=== PATIENT | male | born 1960 | race Caucasian/White ===

== ENCOUNTER 2016-07-23 15:54 | Emergency (ER) | payer MEDICARE, MEDICAID ==
[~2016-07-23] VITALS: Ht 195.6 cm; Wt 106.8 kg
[~2016-07-23 15:54] MED LIST: BLOOD THINNER PO; CIAL20TA PO; CIAL5TAB PO; DAPT500P IV; NOVONP2 SQ; NOVORP2 SQ; RIFA300C2 PO; TAMS5CAP PO; [UNRECOGNIZED DRUG - CODE] TOPICAL
[2016-07-23 15:56] VITALS: BP 137/66; PULSE 115; PULSE 122; RESP 20; TEMP 98.1; TEMP 99.6; O2SAT 97
[2016-07-23] MEDS ORDERED: CLIN1GEL TOPICAL (16:35)
[2016-07-23] MEDS ORDERED: CIPR750T2 PO (16:35)
[2016-07-23] MEDS ORDERED: GENT0.1C TOPICAL (16:47)
[2016-07-23] MEDS ORDERED: NOVONP2 SQ ×2 (16:48→16:53)
[2016-07-23] MEDS ORDERED: SODIUM CHLOR 0.9% 1000 ML INJ 1,000 ML IV ONE (17:00)
[2016-07-23] MEDS ORDERED: HYDROmorphone HCL PF 1 MG/ML VIAL IVS ONE (17:00)
[2016-07-23] MEDS ORDERED: NOVORP2 SQ (17:04)
[2016-07-23 17:35] LABS: AUTOMATED NEUTROPHIL # 14.2 TH/MM3 (1.8-7.7); BASOPHIL # 0.1 TH/MM3 (0-0.2); BASOPHIL % 0.3 % (0.0-2.0); EOSINOPHIL # 0.1 TH/MM3 (0-0.4); EOSINOPHIL % 0.8 % (0.0-4.0); HEMATOCRIT 28.7 % (39.0-51.0); HEMO FLAGS DIFF FINAL; LYMPH % 5.6 % (9.0-44.0); LYMPHOCYTE # 0.9 TH/MM3 (1.0-4.8); MEAN CELL VOLUME 80.9 FL (80.0-100.0); MEAN CORPUSCULAR HEMOGLOBIN 27.1 PG (27.0-34.0); MEAN CORPUSCULAR HGB CONC 33.5 % (32.0-36.0); MONO % 4.6 % (0.0-8.0); NEUT % 88.7 % (16.0-70.0); PLATELET COUNT 252 TH/MM3 (150-450); RED BLOOD COUNT 3.55 MIL/MM3 (4.50-5.90); RED CELL DISTRIBUTION WIDTH 14.9 % (11.6-17.2)
[2016-07-23 17:46] VITALS: RESP 18
[2016-07-23 18:03] LABS: ANION GAP 10 MEQ/L (5-15); AST (GOT) 13 U/L (15-37); BICARBONATE 22.2 MEQ/L (21.0-32.0); BLOOD UREA NITROGEN 33 MG/DL (7-18); CHLORIDE 100 MEQ/L (98-107); GLOMERULAR FILTRATION RATE 40 ML/MIN (>89); POTASSIUM 4.3 MEQ/L (3.5-5.1); SODIUM (NA) 132 MEQ/L (136-145)
[2016-07-23 18:06] LABS: ALKALINE PHOSPHATASE 116 U/L (45-117); ALT (GPT) 17 U/L (12-78); TOTAL BILIRUBIN ADULT 0.3 MG/DL (0.2-1.0)
[2016-07-23] MEDS ORDERED: ONDANSETRON HCL 4 MG/2 ML VIAL IV ONE (18:30)
[2016-07-23] MEDS ORDERED: IODIXANOL 320 MG/ML 10 ML VIAL (for RAD SPEC) IV ONE (18:43)
[2016-07-23] MEDS ORDERED: AMPICILLIN-SULBACTAM INJ 3 GM in SODIUM CHLORIDE 0.9% INJ 100 ML IV ONE (18:45)
[2016-07-23] MEDS ORDERED: HYDROmorphone HCL PF 1 MG/ML VIAL IV PUSH ONE (18:45)
--- NOTE | 2016-07-23 18:52 | RADRPT ---
EXAM DATE/TIME: 07/23/2016 18:27 [place] COMPARISON: No previous studies available for comparison. INDICATIONS : Left face red and swollen for one week. IV CONTRAST: 46 cc Visipaque (iodixanol) IV RADIATION DOSE: 36.31 CTDIvol (mGy) MEDICAL HISTORY : Cardiovascular disease. Hypertension. Diabetes mellitus type 2. SURGICAL HISTORY : Appendectomy. Herniorrhaphy ENCOUNTER: Initial ACUITY: 1 week PAIN SCALE: 5/10 LOCATION: Left facial TECHNIQUE: Volumetric scanning of the facial bones was performed. Using automated exposure control and adjustme nt of the mA and/or kV according to patient size, radiation dose was kept as low as reasonably achiev able to obtain optimal diagnostic quality images. FINDINGS: ORBITS: The orbital and infraorbital osseous structures are intact. The retroconal structures have a normal configuration. No radiopaque foreign bodies are seen. NASAL BONE: The nasal bone and maxillary spine are intact ZYGOMATIC ARCHES: Symmetric without evidence of fracture. SINUSES: The maxillary, ethmoid and frontal sinuses are intact. No air-fluid levels seen. NASAL CAVITY: The nasal septum is intact and midline. The lacrimal ducts are intact. SOFT TISSUES: No radiopaque foreign bodies seen. Extensive left-sided facial soft-tissue swelling is seen. No absce ss. This is seen laterally on the left along the left cheek and in the region of the left parotid gla nd INTRACRANIAL: No intracranial air seen. CRIBIFORM PLATE: Grossly intact. CONCLUSION: Cellulitic changes of the left face. No abscess. Fly Marcial MD on July 23, 2016 at 18:49 Board Certified Radiologist. This report was verified electronically.
[2016-07-23] MEDS ORDERED: PERC10TA27 PO (19:04)
[2016-07-23] MEDS ORDERED: BACT800T5 PO (19:04)
[2016-07-23] MEDS ORDERED: AUGM875T PO (19:04)
--- NOTE | 2016-07-23 19:04 | PD ---
HPI Chief Complaint: Allergic/Adverse Reaction Time Seen by Provider: 16:34 Travel History International Travel<30 days: No Contact w/Intl Traveler<30days: No Traveled to known affect area: No History of Present Illness HPI 56-year-old man with diabetes hypertension CAD Charcot foot and chronic osteomyelitis of his feet who presents with worsening pain swelling redness to his left face and jaw. Symptoms have been ongoing for the past 5 or 6 days. Initially had multiple small pustules on both sides of his face. These were easily drained. He saw his infectious disease doctor who gave him a clindamycin cream. He states after using this 3 or 4 days ago he had progressive worsening pain redness swelling on the side of his face. He has chills at night. 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 He completed Cubicin and rifampin 13 weeks via PICC line. History Past Medical History Narrative Medical Diabetes CAD Hypertension Charcot feet Chronic osteomyelitis Social History Alcohol Use: Yes (rarely) Tobacco Use: No Allergies-Medications (Allergen,Severity, Reaction): Coded Allergies: Codeine (Verified Allergy, Severe, Cardiac arrest, 07/23/16) Reported Meds & Prescriptions Reported Meds & Active Scripts Active Bactrim DS (Sulfamethoxazole-Trimethoprim) 800-160 Mg Tab 1 Tab PO BID Augmentin (Amoxicillin-Clavulanate) 875-125 mg Tab 875 Mg PO BID not for use in CrCl <30 ml/min. Percocet (Oxycodone-Acetaminophen) 10-325 mg Tab 1 Tab PO Q6H PRN Cialis (Tadalafil) 5 Mg Tab 5 Mg PO DAILY Do not exceed 1 dose/day. Flomax (Tamsulosin HCl) 0.4 Mg Cap 0.4 Mg PO HS Reported Novolin R Inj (Insulin Human Regular) 1,000 Unit/10 Ml Vial 0 SQ DIRECTED Sliding Scale As Directed. Novolin N Inj (Insulin Human NPH) 1,000 Unit/10 Ml Vial 25 Units SQ DAILY IN THE EVENING Novolin N Inj (Insulin Human NPH) 1,000 Unit/10 Ml Vial 35 Units SQ DAILY IN THE MORNING Gentamicin Topical 0.1% Cream 1 Applic TOPICAL BID Apply to affected groin and toe. Clindamycin Topical (Clindamycin Phosphate) 1% Gel 1 Applic TOPICAL 5 TIMES A DAY Ciprofloxacin (Ciprofloxacin HCl) 750 Mg Tab 750 Mg PO BID Review of Systems Except as stated in HPI: all other systems reviewed are Neg Physical Exam Narrative GENERAL: Well-appearing 56-year-old man, no acute distress. SKIN: Warm and dry. HEAD: Atraumatic. Normocephalic. EYES: Pupils equal and round. No scleral icterus. No injection or drainage. ENT: No nasal bleeding or discharge. Mucous membranes pink and moist. Significant erythema redness on the patient's left jawline. Is a lot of induration. I do not feel any obvious fluctuance. There are several areas of scabbing in the bottom aspect of the jaw reveals a little bit of thin purulent drainage. Intraoral exam is unremarkable. There is no teeth on the bottom. There is no purulent drainage from Stensen's duct. There is no evidence of obvious odontogenic source of the infection. NECK: Trachea midline. No JVD. CARDIOVASCULAR: Regular rate and rhythm. No murmur appreciated. RESPIRATORY: No accessory muscle use. Clear to auscultation. Breath sounds equal bilaterally. GASTROINTESTINAL: Abdomen soft, non-tender, nondistended. Hepatic and splenic margins not palpable. MUSCULOSKELETAL: No obvious deformities. No clubbing. No cyanosis. No edema. Data Data Last Documented VS Vital Signs Date Time Temp Pulse Resp B/P Pulse Ox O2 Delivery O2 Flow Rate FiO2 07/23/16 17:46 18 07/23/16 15:56 99.6 122 137/66 97 Orders Ed Poc Ultrasound (07/23/16 ) Complete Blood Count With Diff (07/23/16 16:56) Comprehensive Metabolic Panel (07/23/16 16:56) Westergren Sedimentation Rate (07/23/16 16:56) C-Reactive Protein (Crp) (07/23/16 16:56) Iv Access Insert/Monitor (07/23/16 16:56) Ct Facial Bones W Iv Contrast (07/23/16 ) Sodium Chlor 0.9% 1000 Ml Inj (Ns 1000 M (07/23/16 17:00) Hydromorphone Pf Inj (Dilaudid Pf Inj) (07/23/16 17:00) Blood Culture (07/23/16 17:06) Ondansetron Inj (Zofran Inj) (07/23/16 18:30) Iodixanol 320 Inj (Visipaque 320 Inj) (07/23/16 18:43) Ampicillin-Sulbactam Inj (Unasyn Inj) (07/23/16 18:45) Hydromorphone Pf Inj (Dilaudid Pf Inj) (07/23/16 18:45) Labs Laboratory Tests Test 07/23/16 17:08 White Blood Count 16.0 TH/MM3 Red Blood Count 3.55 MIL/MM3 Hemoglobin 9.6 GM/DL Hematocrit 28.7 % Mean Corpuscular Volume 80.9 FL Mean Corpuscular Hemoglobin 27.1 PG Mean Corpuscular Hemoglobin 33.5 % Concent Red Cell Distribution Width 14.9 % Platelet Count 252 TH/MM3 Mean Platelet Volume 7.5 FL Neutrophils (%) (Auto) 88.7 % Lymphocytes (%) (Auto) 5.6 % Monocytes (%) (Auto) 4.6 % Eosinophils (%) (Auto) 0.8 % Basophils (%) (Auto) 0.3 % Neutrophils # (Auto) 14.2 TH/MM3 Lymphocytes # (Auto) 0.9 TH/MM3 Monocytes # (Auto) 0.7 TH/MM3 Eosinophils # (Auto) 0.1 TH/MM3 Basophils # (Auto) 0.1 TH/MM3 CBC Comment DIFF FINAL Differential Comment Erythrocyte Sedimentation Rate 114 mm/hr Sodium Level 132 MEQ/L Potassium Level 4.3 MEQ/L Chloride Level 100 MEQ/L Carbon Dioxide Level 22.2 MEQ/L Anion Gap 10 MEQ/L Blood Urea Nitrogen 33 MG/DL Creatinine 1.78 MG/DL Estimat Glomerular Filtration 40 ML/MIN Rate Random Glucose 132 MG/DL Calcium Level 8.9 MG/DL Total Bilirubin 0.3 MG/DL Aspartate Amino Transf 13 U/L (AST/SGOT) Alanine Aminotransferase 17 U/L (ALT/SGPT) Alkaline Phosphatase 116 U/L C-Reactive Protein 17.00 MG/DL Total Protein 7.8 GM/DL Albumin 2.9 GM/DL [facility] Medical Decision Making Medical Screen Exam Complete: Yes Emergency Medical Condition: Yes Interpretation(s) LABS: CBC remarkable for leukocytosis Sedimentation rate 114 CMP with mildly elevated BUN and creatinine CRP 17 Differential Diagnosis Cellulitis, abscess, parotiditis, other Narrative Course Medical decision making 56-year-old man with cellulitis and possible abscess to the left face. Patient is insistent that he just needs is drained, culture sent, blood work sent. I performed a bedside ultrasound which did not show any areas of fluctuance to drain. CT scan was performed which shows cellulitis and induration but without drainable collection. IV show leukocytosis and elevated inflammatory markers. I recommended that the patient stay for admission IV antibiotics and further evaluation. Patient is absolutely unwilling to stay. He solely from the first moment I walked in the room. He does have an infectious disease doctor in a primary care physician with whom he can follow-up with. This does not appear to be an odontogenic infection. Cultures were obtained but there is no area to be drained to get a culture from the wound itself. We'll place patient on Augmentin, with Bactrim for MRSA coverage. Patient understands he can return at any time for repeat evaluation and admission. Diagnosis Primary Impression: Facial cellulitis Patient Instructions: General Instructions Additional Instructions: Take antibiotics as prescribed. Take pain medicine as needed. Follow-up with your primary doctor tomorrow. Return to the emergency department if you change your mind and are agreeable to stay, he started to develop fevers, worsening swelling, worsening pain, or any other new or worsening symptoms. Med/Other Pt SpecificInfo: Prescription(s) given Scripts Sulfamethoxazole-Trimethoprim (Bactrim DS)800-160 Mg Tab1 Tab PO BID #20 TAB Ref 0 Prov:Jacob Reeder MD 07/23/16 Amoxicillin-Clavulanate (Augmentin)875-125 mg Ddg253 Mg PO BID #20 TAB Ref 0 not for use in CrCl <30 ml/min. Prov:Jacob Reeder MD 07/23/16 Oxycodone-Acetaminophen (Percocet)10-325 mg Tab1 Tab PO Q6H PRN (PAIN) #15 TAB Ref 0 Prov:Jacob Reedre MD 07/23/16 Disposition: 07 AGAINST MEDICAL ADVICE Condition: Stable Jacob Reeder MD Jul 23, 2016 19:04
[2016-07-23] MEDS ORDERED: ONDANSETRON ODT 4 MG TAB PO ONE (20:00)
[2016-11-25] MEDS ORDERED: ANTI1CRE6 TOPICAL (11:06)
[2016-11-25] MEDS ORDERED: MERO1INJ8 IV (11:06)
[2016-11-25] MEDS ORDERED: NOVOINJ6 SQ ×2 (11:06)
[2016-11-25] MEDS ORDERED: HUMUINJ5 SQ (11:06)
== END 2016-07-23 20:19 | disposition left against medical advice (07) ==
LOC: NEPE 15:54
DX: L03.211 Cellulitis of face (principal); E11.9 Type 2 diabetes mellitus without complications; I25.10 Atherosclerotic heart disease of native coronary artery without angina pectoris; I10 Essential (primary) hypertension; A52.16 Charcot's arthropathy (tabetic); M86.679 Other chronic osteomyelitis, unspecified ankle and foot
CPT/HCPCS: 70487; 80053; 85025; 85652; 86140; 86403; 87040; 87186; 87205; 96361; 96365; 96375; 96376; 99284; J0295; J1170; J2405; J7030; Q9967

== ENCOUNTER 2016-07-25 12:08 | Inpatient (IN) | payer MEDICARE, MEDICAID, OTHER ==
[~2016-07-25] VITALS: Ht 195.6 cm; Wt 106.0 kg
[2016-07-25] MEDS: SODIUM CHLOR 0.9% 1000 ML INJ 1,000 ML IV SCH ×2 (03:43→15:16)
[~2016-07-25 12:08] MED LIST changes: +AUGM875T PO; +BACT800T5 PO; -BLOOD THINNER PO; -CIAL20TA PO; +CIPR750T2 PO; +CLIN1GEL TOPICAL; -DAPT500P IV; +GENT0.1C TOPICAL; +PERC10TA27 PO; -RIFA300C2 PO; -[UNRECOGNIZED DRUG - CODE] TOPICAL
[2016-07-25 12:12] VITALS: BP 138/86; PULSE 88; RESP 20; TEMP 98; O2SAT 98
[2016-07-25] MEDS ORDERED: Vancomycin Consult Pharmacy 1 EA OTHER SCH (14:30)
[2016-07-25] MEDS ORDERED: LORazepam 1 MG TAB PO PRN (14:30)
[2016-07-25] MEDS ORDERED: ACETAMINOPHEN 325 MG TAB PO PRN (14:30)
[2016-07-25] MEDS ORDERED: NALOXONE HCL 0.4 MG/ML AMP IV PRN ×2 (14:30)
[2016-07-25] MEDS ORDERED: VANCOMYCIN INJ 1,000 MG in SODIUM CHLOR 0.9% 250 ML INJ 250 ML IV SCH (14:30)
[2016-07-25] MEDS ORDERED: ACETAMINOPHEN/HYDROcodone 325 MG/5 MG TAB PO PRN (14:30)
--- NOTE | 2016-07-25 14:47 | PD ---
HPI Chief Complaint: Facial Pain or Swelling Time Seen by Provider: 14:06 Travel History International Travel<30 days: No Contact w/Intl Traveler<30days: No Traveled to known affect area: No History of Present Illness HPI This patient was sent here for admission from the primary care office. He's got a left facial infection that is failing outpatient treatment and worsening despite antibiotics of Augmentin and Bactrim. He was here 2 days ago and had extensive workup including labs and a CT of the face that did not show drainable abscess. Symptoms severity is moderate. He has subjective fever. No alleviating factors. Duration one week PFSH Past Medical History Cardiac Catheterization: Yes Cardiovascular Problems: Yes (MID LAT ART COLLAPSE 2014) Diabetes: Yes Patient Takes Glucophage: No Tetanus Vaccination: < 5 Years Past Surgical History Coronary Stent: Yes Social History Alcohol Use: Yes (rarely) Tobacco Use: No Substance Use: No Allergies-Medications (Allergen,Severity, Reaction): Coded Allergies: Codeine (Verified Allergy, Severe, Cardiac arrest, 07/25/16) Reported Meds & Prescriptions Reported Meds & Active Scripts Active Bactrim DS (Sulfamethoxazole-Trimethoprim) 800-160 Mg Tab 1 Tab PO BID Augmentin (Amoxicillin-Clavulanate) 875-125 mg Tab 875 Mg PO BID not for use in CrCl <30 ml/min. Percocet (Oxycodone-Acetaminophen) 10-325 mg Tab 1 Tab PO Q6H PRN Cialis (Tadalafil) 5 Mg Tab 5 Mg PO DAILY Do not exceed 1 dose/day. Flomax (Tamsulosin HCl) 0.4 Mg Cap 0.4 Mg PO HS Reported Novolin R Inj (Insulin Human Regular) 1,000 Unit/10 Ml Vial 0 SQ DIRECTED Sliding Scale As Directed. Novolin N Inj (Insulin Human NPH) 1,000 Unit/10 Ml Vial 25 Units SQ DAILY IN THE EVENING Novolin N Inj (Insulin Human NPH) 1,000 Unit/10 Ml Vial 35 Units SQ DAILY IN THE MORNING Gentamicin Topical 0.1% Cream 1 Applic TOPICAL BID Apply to affected groin and toe. Clindamycin Topical (Clindamycin Phosphate) 1% Gel 1 Applic TOPICAL 5 TIMES A DAY Ciprofloxacin (Ciprofloxacin HCl) 750 Mg Tab 750 Mg PO BID Review of Systems General / Constitutional: Positive: Fever Eyes: No: Visual changes HENT: No: Headaches Cardiovascular: No: Chest Pain or Discomfort Respiratory: No: Shortness of Breath Gastrointestinal: No: Abdominal Pain Genitourinary: No: Dysuria Musculoskeletal: Positive: Pain Skin: No Rash Neurologic: No: Weakness Psychiatric: No: Depression Endocrine: No: Polydipsia Hematologic/Lymphatic: No: Easy Bruising Physical Exam Narrative GENERAL: Well-nourished, well-developed patient with facial infection. SKIN: Warm and dry. HEAD: Atraumatic. Normocephalic. EYES: Pupils equal and round. No scleral icterus. No injection or drainage. ENT: No nasal bleeding or discharge. Mucous membranes pink and moist. NECK: Trachea midline. No JVD. CARDIOVASCULAR: Regular rate and rhythm. No murmur appreciated. RESPIRATORY: No accessory muscle use. Clear to auscultation. Breath sounds equal bilaterally. GASTROINTESTINAL: Abdomen soft, non-tender, nondistended. Hepatic and splenic margins not palpable. MUSCULOSKELETAL: No obvious deformities. No clubbing. No cyanosis. No edema. NEUROLOGICAL: Awake and alert. No obvious cranial nerve deficits. Motor grossly within normal limits. Normal speech. PSYCHIATRIC: Somewhat hostile mood and affect; insight and judgment normal. Data Data Last Documented VS Vital Signs Date Time Temp Pulse Resp B/P Pulse Ox O2 Delivery O2 Flow Rate FiO2 07/25/16 12:12 98.0 88 20 138/86 98 Room Air Orders Iv Access Insert/Monitor (07/25/16 14:39) Complete Blood Count With Diff (07/25/16 14:39) Basic Metabolic Panel (Bmp) (07/25/16 14:39) Prothrombin Time / Inr (Pt) (07/25/16 14:39) Act Partial Throm Time (Ptt) (07/25/16 14:39) Admit Order (Ed Use Only) (07/25/16 14:40) [facility] Medical Decision Making Medical Screen Exam Complete: Yes Emergency Medical Condition: Yes Medical Record Reviewed: Yes Differential Diagnosis Carbuncle, boil, failure of outpatient treatment Narrative Course I have reviewed the patient's electronic medical record. Reviewed his extensive workup from 2 days ago IV placed I've ordered Gen. lab studies I spoke with the admitting medical residents who are ordering vancomycin right now Patient is agreeable to stay Diagnosis Primary Impression: Carbuncle Additional Impression: Failure of outpatient treatment Admitting Information Admitting Physician Requests: Sarabjit Bay MD Jul 25, 2016 14:46
--- NOTE | 2016-07-25 14:49 | HHI.HP ---
HPI Service Family Medicine Primary Care Physician Cuate Bajwa MD Admission Diagnosis L facial carbuncle,failure of outpt RX Diagnoses: International Travel<30 Days: No Contact w/Intl Traveler<30days: No Known Affected Area: No History of Present Illness 56-year-old male with a past medical history significant for diabetes who is currently being treated for osteomyelitis with ciprofloxacin by infectious disease. He developed a large erythematous swelling of cellulitis along the left jawline currently 10 x 10 cm. He is developing severe nausea and vomiting. He recently went to the [facility] ED on 07/23/16. Blood cultures were done at that time he was found to be staph coagulase positive. He decided to leave the hospital on that day before being admitted. He came to the family medicine clinic on 07/25/16 to be evaluated due to the worsening swelling and erythema, the worsening since nausea vomiting, and the positive blood cultures he was told that it was important that he go to the hospital to be admitted. He was upset with several the staff at the clinic as well as at triage for the ED, however he agreed to stay and be admitted to get IV antibiotics. He is unwilling to have much of a conversation during my evaluation and more information was not able to be obtained. Further history per chart review: Patient was previously treated for his osteomyelitis with Cubicin and rifampin 13 weeks via PICC line. PICC line has subsequently been removed. He is also followed by podiatry who took a recent wound culture and stated that his foot was growing "a new bacteria." Attempts to get records have failed. He is being seen by infectious disease who started him on oral ciprofloxacin. The patient states that the previous antibiotics were giving him abscesses for which ID prescribed clindamycin ointment. 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 ( Hubert Courtney MD R2) Review of Systems ROS Limitations: Uncooperative, Poor Historian Other Endorses: Nausea, vomiting, feeling febrile, severe pain in his left total, erythema and swelling of the left atrial Denies: chills, nausea, vomiting, shortness of breath, chest pain, headache, abdominal pain, calf pain (Hubert Courtney MD R2) Past Family Social History Past Medical History - Poorly controlled insulin dependant DM II - Charcot feet - Chronic osteomyelitis - HTN Past Surgical History - Bilateral 5th ray amputations (Hubert Courtney MD R2) Allergies: Coded Allergies: Codeine (Verified Allergy, Severe, Cardiac arrest, 07/25/16) Family History - Dad: lung cancer - Mom- Unknown cancer Social History Unwilling to provide 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 SKIN: Erythematous and indurated swelling that is 10 x 10 cm along patient's left jawline. Did not palpate any areas of fluctuation. Painful to palpation. HEAD: Atraumatic. Normocephalic. No temporal or scalp tenderness. Area of cellulitis as above EYES: Pupils equal round and reactive. Extraocular motions intact. No scleral icterus. No injection or drainage. ENT: Nose without bleeding, purulent drainage or septal hematoma. Throat without erythema, tonsillar hypertrophy or exudate. Uvula midline. Mild mucosal swelling on left side of mouth Airway patent. NECK: Trachea midline. No JVD or lymphadenopathy. Supple, nontender, no meningeal signs. CARDIOVASCULAR: Regular rate and rhythm without murmurs, gallops, or rubs. RESPIRATORY: Clear to auscultation. Breath sounds equal bilaterally. No wheezes , rales, or rhonchi. GASTROINTESTINAL: Abdomen soft, non-tender, nondistended. No hepato-splenomegaly , or palpable masses. No guarding. MUSCULOSKELETAL: Extremities without clubbing, cyanosis, or edema. No joint tenderness, effusion, or edema noted. No calf tenderness. Negative Homans sign bilaterally. Right foot in boot NEUROLOGICAL: Awake and alert. Cranial nerves II through XII grossly intact. Normal speech. (Hubert Courtney MD R2) Imaging 07/23/16 CT facial bones with IV contrast: Slightly changes the left face. No abscess (Hubert Courtney MD R2) Assessment and Plan Assessment and Plan 56-year-old male with a past medical history significant for diabetes who is currently being treated for osteomyelitis with ciprofloxacin by infectious disease, now developed a large cellulitis to the left jaw. Being admitted for this cellulitis infection. Code Status Full code Discussed Condition With DW: Dr. Brenner WDW: Dr. Cook (Hubert Courtney MD R2) Attending Attestation THIS CASE WAS DISCUSSED WITH THE RESIDENT PHYSICIANS. I HAVE REVIEWED THE RECORD AND AGREE WITH THE ABOVE NOTE AND PLAN OF CARE WAS DISCUSSED. I HAVE AUTHORIZED THE ORDER FOR ADMISSION TO AN IN-PATIENT STATUS. (Vince Cook MD) Problem List: (1) Facial cellulitis Status: Acute Plan: 10 x 10 area of indurated erythematous region of cellulitis on the left jaw. Been present for a few days now and worsening. Patient is becoming sicker and nauseated and vomited from his illness. * Admitted to inpatient * Consult infectious disease, recommendations appreciated * Started vancomycin with pharmacy consult * Will adjust antibiotics per ID recommendation * Recent CT showed cellulitis no abscess * Postponing consult to maxillary surgery at this time until ID recommendations obtained Pain control * Inman 5/325 every 4 hours when necessary pain 3-5 * [place]man 10/325 every 4 hours when necessary pain 610 * Dilaudid 1 mg IV every 3 hours when necessary breakthrough pain (2) Osteomyelitis of foot Status: Chronic Plan: Chronic osteomyelitis of the foot. Being followed by ID. * Continue ciprofloxacin 750 mg by mouth twice a day per their recommendations (3) DM (diabetes mellitus) Status: Chronic Plan: Long-standing history of poorly controlled diabetes. * Placed on medium dose of sliding scale * Monitor blood glucose per protocol (4) Nutrition, metabolism, and development symptoms Status: Acute Plan: Diabetic diet Monitor electrolytes and replace accordingly Vitals every 4 SCDs for DVT prophylaxis Out of bed ad casey. CODE STATUS: Full code Disposition: To be determined later date with improvement of clinical findings (Hubert Courtney MD R2) Physician Certification 2 Midnight Certification Type: Admission for Inpatient Services Order for Inpatient Services The services are ordered in accordance with Medicare regulations or non- Medicare payer requirements, as applicable. In the case of services not specified as inpatient-only, they are appropriately provided as inpatient services in accordance with the 2-midnight benchmark. Estimated LOS (days): 2 days is the estimated time the patient will need to remain in the hospital, assuming treatment plan goals are met and no additional complications. Post-Hospital Plan: Home (Hubert Courtney MD R2) Problem Qualifiers (1) Osteomyelitis of foot: Qualified Code: M86.9 - Osteomyelitis of right foot, unspecified type (2) DM (diabetes mellitus): Qualified Code: E11.621 - Type 2 diabetes mellitus with foot ulcer, with long- term current use of insulin Hubert Courtney MD R2 Jul 25, 2016 14:49 Vince Cook MD Jul 26, 2016 12:18
[2016-07-25] MEDS: HYDROmorphone HCL PF 1 MG/ML VIAL IV PRN ×4 (15:22→23:14)
[2016-07-25] MEDS ORDERED: VANCOMYCIN 1,500 MG/NS 500 ML IV ONE ×2 (16:00)
[2016-07-25 16:04] LABS: APTT (PATIENT) 31.3 SEC (24.3-30.1); AUTOMATED NEUTROPHIL # 11.8 TH/MM3 (1.8-7.7); BASOPHIL # 0.1 TH/MM3 (0-0.2); BASOPHIL % 0.4 % (0.0-2.0); EOSINOPHIL # 0.1 TH/MM3 (0-0.4); EOSINOPHIL % 0.5 % (0.0-4.0); HEMATOCRIT 26.6 % (39.0-51.0); HEMO FLAGS DIFF FINAL; INTERNATIONAL NORMALIZED RATIO 1.1 RATIO; LYMPH % 5.6 % (9.0-44.0); LYMPHOCYTE # 0.8 TH/MM3 (1.0-4.8); MEAN CELL VOLUME 80.8 FL (80.0-100.0); MEAN CORPUSCULAR HGB CONC 33.4 % (32.0-36.0); MONO % 5.7 % (0.0-8.0); NEUT % 87.8 % (16.0-70.0); PLATELET COUNT 286 TH/MM3 (150-450); PROTHROMBIN TIME - PATIENT 12.3 SEC (9.8-11.6); RED BLOOD COUNT 3.29 MIL/MM3 (4.50-5.90); RED CELL DISTRIBUTION WIDTH 15.2 % (11.6-17.2); WHITE BLOOD COUNT 13.4 TH/MM3 (4.0-11.0)
[2016-07-25 16:24] LABS: BICARBONATE 26.2 MEQ/L (21.0-32.0); POTASSIUM 4.4 MEQ/L (3.5-5.1)
[2016-07-25] MEDS ORDERED: DEXTROSE 50% IN WATER 50 ML VIAL(D50) IV PUSH PRN (16:45)
[2016-07-25] MEDS ORDERED: GLUCAGON 1 MG/ML VIAL OTHER PRN (16:45)
[2016-07-25 16:47] VITALS: BP 129/74
[2016-07-25] MEDS: SODIUM CHLORIDE 0.9% FLUSH 5 ML FLUSH FLUSH PRN (17:20)
[2016-07-25] MEDS: ACETAMINOPHEN/HYDROcodone 325 MG/10 MG TAB PO PRN ×2 (17:31→23:01)
[2016-07-25 17:35] VITALS: BP 159/87; PULSE 87; RESP 16; TEMP 96.5; O2SAT 98
[2016-07-25] MEDS: INSULIN ASPART SUPPLEMENTAL SCALE SQ SCH ×2 (17:35→23:40)
[2016-07-25 20:00] VITALS: BP 122/73; PULSE 86; RESP 17; TEMP 96.9; O2SAT 97
[2016-07-25] MEDS: SODIUM CHLORIDE 0.9% FLUSH 5 ML FLUSH FLUSH SCH (20:04)
[2016-07-25] MEDS: ONDANSETRON HCL 4 MG/2 ML VIAL IVP PRN (20:09)
[2016-07-25] MEDS: CIPROFLOXACIN 750 MG TAB PO SCH (23:01)
[2016-07-25] MEDS: TAMSULOSIN HCL 0.4 MG CAP PO SCH (23:02)
[2016-07-25 23:17] VITALS: BP 156/75; PULSE 90; RESP 20; TEMP 96.3; O2SAT 97
[2016-07-26] MEDS: ACETAMINOPHEN/HYDROcodone 325 MG/10 MG TAB PO PRN ×5 (03:42→20:51)
[2016-07-26] MEDS: HYDROmorphone HCL PF 1 MG/ML VIAL IV PRN ×6 (03:49→21:35)
[2016-07-26 04:00] VITALS: BP 159/80; PULSE 90; RESP 19; TEMP 98.3; O2SAT 96
[2016-07-26] MEDS: ONDANSETRON HCL 4 MG/2 ML VIAL IVP PRN (07:02)
[2016-07-26] MEDS: INSULIN ASPART SUPPLEMENTAL SCALE SQ SCH (07:04)
[2016-07-26 07:43] VITALS: BP 168/86; PULSE 84; RESP 18; TEMP 96.8; O2SAT 100
[2016-07-26] MEDS: SODIUM CHLORIDE 0.9% FLUSH 5 ML FLUSH FLUSH SCH ×2 (07:59→20:50)
[2016-07-26] MEDS: CIPROFLOXACIN 750 MG TAB PO SCH (08:01)
--- NOTE | 2016-07-26 08:06 | HHI.FPPN ---
Subjective Remarks FM Attending Note: Patient seen and examined. S: Chart and all resident physician notes reviewed. In summary this is a 56 year old male who was admitted with an admission diagnosis of left facial abscess with bacteremia. The patient gives a history of skin abscesses on his left facial area. He has been on multiple antibiotics regimens due to osteomyelitis of his right foot. He is a poorly controlled diabetic. The left facial area began having increasing swelling. He was seen in the emergency room a day prior to his admission and did have imaging studies that showed soft tissue swelling but no discrete abscess. Blood cultures were done at that time (07/23/16) )which came back positive for coag + staph and for this reason he was advised to return to the emergency room for admission. No significant fever has been present overnight. The patient reports a moderate amount of pain associated with the area of infection. Objective Vitals Vital Signs Date Time Temp Pulse Resp B/P Pulse Ox O2 Delivery O2 Flow Rate FiO2 07/26/16 07:47 19 07/26/16 07:43 96.8 84 18 168/86 100 07/26/16 05:00 20 07/26/16 04:00 98.3 90 19 159/80 96 07/25/16 23:17 96.3 90 20 156/75 97 07/25/16 20:00 96.9 86 17 122/73 97 07/25/16 17:35 96.5 87 16 159/87 98 07/25/16 16:47 87 20 129/74 99 07/25/16 12:12 98.0 88 20 138/86 98 Room Air I/O 07/25/16 07/25/16 07/25/16 07/26/16 07/26/16 07/26/16 07:00 15:00 23:00 07:00 15:00 23:00 Intake Total 713 ml 2490 ml 360 ml Output Total 550 ml 800 ml Balance 713 ml 1940 ml -440 ml Intake Oral 1440 ml 360 ml IV Total 713 ml 1050 ml Output Urine Total 550 ml 800 ml Result Diagram: 07/25/16 1515 07/25/[address] scan of the face done 07/23/16 showed cellulitic changes of the left face without abscess formation. Objective Remarks O. CONSTITUTIONAL/GEN: normally nourished, in NAD. EYES: conjunctiva normal, PERRLA, EOMI. ENT: Mouth and pharynx normal. 8X8 cm area of erythema and firm STS over norbert region of the left parotid gland. NECK: thyroid midline, carotids symmetrical. LUNGS: clear A-P, respiratory effort is normal. CARDIOVASCULAR: RR without murmur or gallop. No significant edema. NEURO: No focal deficits. SKIN: color normal other than area of cellulitis left face. PSYCH/MENTAL STATUS: Alert and oriented x 3. A/P Assessment and Plan 56-year-old male with a past medical history significant for diabetes who is currently being treated for osteomyelitis with ciprofloxacin by infectious disease, now developed a large cellulitis to the left jaw. Being admitted for this cellulitis infection. Problem List: (1) Facial cellulitis Status: Acute Plan: 10 x 10 area of indurated erythematous region of cellulitis on the left jaw. Been present for a few days now and worsening. Patient is becoming sicker and nauseated and vomited from his illness. * Admitted to inpatient * Consult infectious disease, recommendations appreciated * Started vancomycin with pharmacy consult * Will adjust antibiotics per ID recommendation * Recent CT showed cellulitis no abscess * Postponing consult to maxillary surgery at this time until ID recommendations obtained Pain control * [place] 5/325 every 4 hours when necessary pain 3-5 * [place] 10/325 every 4 hours when necessary pain 610 * Dilaudid 1 mg IV every 3 hours when necessary breakthrough pain (2) Osteomyelitis of foot Status: Chronic Plan: Chronic osteomyelitis of the foot. Being followed by ID. * Continue ciprofloxacin 750 mg by mouth twice a day per their recommendations. 07/26/16 We'll continue antibiotic therapy for the bacteremia and facial cellulitis. We have consulted infectious disease regarding further recommendations for treatment and recommendations regarding possible surgical drainage. (3) DM (diabetes mellitus) Status: Chronic Plan: Long-standing history of poorly controlled diabetes. * Placed on medium dose of sliding scale * Monitor blood glucose per protocol 07/26/16 Medical care of this patient is quite challenging. Since admission he has been verbally abusive to the staff with his loud cursing also affecting other patients. Dr. Bajwa has spoken to him in a gentle and professional manner informing him of the harmful effects on other that this type of language causes. This morning he told the nurse coming on duty that "I am paying for this hotel and you will do exactly what I tell you." On our visit this morning he stated that he will "fire you unless you order my insulin exactly like I am taking it at home." His insulin regimen at home has been suboptimal looking at his glycemic control but we will try to accommodate his request as long as we are within relatively safe parameters for his diabetes treatment. (4) Nutrition, metabolism, and development symptoms Status: Acute Plan: Diabetic diet Monitor electrolytes and replace accordingly Vitals every 4 SCDs for DVT prophylaxis Out of bed ad casey. CODE STATUS: Full code Disposition: To be determined later date with improvement of clinical findings Problem Qualifiers (1) Osteomyelitis of foot: Qualified Code: M86.9 - Osteomyelitis of right foot, unspecified type (2) DM (diabetes mellitus): Qualified Code: E11.621 - Type 2 diabetes mellitus with foot ulcer, with long- term current use of insulin Vince Cook MD Jul 26, 2016 08:06
[2016-07-26] MEDS ORDERED: GLUCAGON 1 MG/ML VIAL OTHER PRN (08:30)
[2016-07-26] MEDS ORDERED: DEXTROSE 50% IN WATER 50 ML VIAL(D50) IV PUSH PRN (08:30)
[2016-07-26] MEDS ORDERED: LABETALOL HCL 100 MG/20 ML VIAL IV PRN (08:30)
[2016-07-26] MEDS: INSULIN HUMAN NPH 1,000 UNITS/10 ML VIAL SQ SCH ×2 (08:59→18:18)
[2016-07-26] MEDS ORDERED: INSULIN NovoLIN REGULAR SUPPLEMENTAL SCALE SQ SCH (11:00)
[2016-07-26] MEDS: SODIUM CHLOR 0.9% 1000 ML INJ 1,000 ML IV SCH ×2 (12:34→14:21)
[2016-07-26] MEDS: INSULIN NovoLIN REGULAR SUPPLEMENTAL SCALE SQ SCH ×3 (12:34→21:00)
[2016-07-26 13:52] VITALS: BP 168/96; PULSE 88; RESP 20; TEMP 96.8; O2SAT 100
[2016-07-26] MEDS ORDERED: Vancomycin Consult Pharmacy 1 EA OTHER SCH (14:15)
--- NOTE | 2016-07-26 14:37 | MB ---
cc: SURAJ GRANT MD DATE OF CONSULTATION: 07/26/2016 REQUESTING PHYSICIAN: Dr. Blakely REASON FOR CONSULTATION: Diabetic patient with facial cellulitis. HISTORY OF PRESENT ILLNESS This is a 56-year-old white male who presented to emergency department on 07/25 with facial pain and swelling. The patient was sent to the emergency department for evaluation of the facial pain. He was taking antibiotics in the form of Augmentin, Bactrim and ciprofloxacin which he said he has been taking for over a week. The patient states that he gets boils which eventually he pops and drains pus and goes away. He states that he began having these about a month ago. He is followed by an infectious disease physician in [place]. The patient is a poor historian. He tells me that he was seen in the emergency department and he was discharged home. At the time he had worsening pain and swelling and redness of his left face and left jaw which had been ongoing for about 5 days. He was given clindamycin cream which he said he started using on the face and it got larger and larger and therefore he presented again for evaluation. The patient is noted to have been absolutely unwilling to remain in the hospital for management. Blood culture was taken on that day and the blood culture is now showing gram staph coagulase-positive blood culture is now showing staph coagulase-positive in all four bottles. His temperature in emergency department on 07/23 was 99.6 and the white blood cell count was 16.0. The patient states that he used a shaving razor on his left face and after that there was pus that came out from the face. Again he has a poor historian and does not give good temporal relation as far as when that occurred. He tells me that he has been experiencing sweats, chills, headache, nausea. An MRI of the face was performed on 07/23 and it shows cellulitic changes of the face but no abscess. There is no draining coming from his face but he has a large area of swelling at the front of the ear and down all the way to the submandibular area on the left side. This is the size of a small grapefruit. He reports to me that he was having chills yesterday. He came back to emergency department yesterday for evaluation. His temperature has been normal but also somewhat on the low side since yesterday. White count is elevated at 13.4. Blood cultures repeated on 07/25 has no growth in 1 day. The patient tells me that he was being treated with daptomycin and meropenem for his foot, and he developed various skin lesions and it was felt that it could be having an allergic reaction to the medications. He denies breaking out in a rash. He reports to me that his foot has been draining for the past 4 years and that he has never ceased to have any drainage coming from the foot. He is followed by podiatry for his foot. The patient notes that he gets dizzy at times and noted that he was getting a little dizzy while I was evaluating him. PAST MEDICAL HISTORY 1. Poorly controlled insulin diabetes type 2 2. chronic osteomyelitis, 3. Hypertension 4. Charcot feet. 5. History of fifth ray amputation. 6. Chronic right foot ulceration. ALLERGIES CODEINE MEDICATIONS: 1. Insulin 2. Ciprofloxacin 3. Flomax 4. [place] 10 p.r.n. 5. Zofran p.r.n. 6. Vancomycin dose was given yesterday evening. SOCIAL HISTORY No tobacco, occasional alcohol. No illicit drugs. FAMILY HISTORY Noncontributory. REVIEW OF SYSTEMS Pertinent' s mentioned above in history of present illness. The patient denies shortness of breath, cough, abdominal pain, back pain, dysuria. PHYSICAL EXAMINATION IN GENERAL: This is a well-developed male who is awake and alert and in no acute distress. VITAL SIGNS: Temperature 90, temperature 96.8, BP 168/86, respirations 1884. HEAD, EYES, EARS, NOSE, AND THROAT: The head reveals a large area of swelling with erythema at the left face encompassing the area in front of the left ear and wrapping around the left cheek and to the submandibular region. This is extremely tender to palpation. Extraocular movements grossly intact, pupils reactive to light. No icterus. Oropharynx: no visible lesions. Mucosa is moist. NECK: Supple without adenopathy. LUNGS: Clear breath sounds Heart: Regular rate and rhythm without murmurs, rubs or gallops. ABDOMEN: Bowel sounds present, soft, no tenderness appreciated. RECTAL : Not performed. EXTREMITIES: No clubbing or cyanosis or edema. The right foot has deformity from prior surgery and Charcot's joint disease. There is absent fifth toe and there is a shallow ulceration at the lateral aspect of the right great toe which has no significant drainage. There is another ulceration at the plantar aspect of the foot, where there is angulation from the Charcot's. this is around the region of the mid aspect of the foot. He has an open beefy red tissue with some white fatty tissue visible at the edge, within the ulcer crater. No significant drainage except for drainage on the dressing and there is no purulence. The right foot has no erythema. The distal pulses difficult to palpate at the dorsalis pedis on the right foot. Otherwise, pulse is 2+. NEUROLOGIC: Nonfocal. PSYCHIATRIC: The patient appears calm but he also appears irritable. LABORATORY DATA WBC 13.4, platelets 286, 87% neutrophils, creatinine 2.06, BUN 45, sodium 132, estimated GFR 33. IMPRESSION 1. Facial cellulitis. 2. Bacteremia due to staph coagulase-positive likely resulting from facial infection. 3. Chronic right foot ulceration. 4. Acute kidney disease on chronic kidney disease. RECOMMENDATIONS 1. Continue vancomycin with periodic administration because of the renal function. 2. Discontinue ciprofloxacin. 3. Monitor new blood cultures 4. Obtain a new culture of the foot ulceration. 5. Monitor the patient's response to antibiotic treatment. The description; The reaction to daptomycin and meropenem does not sound like a emmett allergic reaction. However, I would avoid these antibiotics at this time. Thank you for this consultation. I will for further recommendations will be given on followup. Suraj Grant MD FD/alexandr /1:42 PM /2:18 PM NEYMAR
[2016-07-26 16:00] VITALS: BP 134/73; PULSE 84; RESP 18; TEMP 97.4; O2SAT 98
[2016-07-26] MEDS ORDERED: INSULIN HUMAN NPH 1,000 UNITS/10 ML VIAL SQ SCH (17:00)
[2016-07-26 20:00] VITALS: BP 127/74; PULSE 74; RESP 16; TEMP 97.8; O2SAT 97
[2016-07-26] MEDS: TAMSULOSIN HCL 0.4 MG CAP PO SCH (20:51)
[2016-07-27] MEDS: HYDROmorphone HCL PF 1 MG/ML VIAL IV PRN ×4 (01:07→11:07)
[2016-07-27] MEDS: ACETAMINOPHEN/HYDROcodone 325 MG/10 MG TAB PO PRN ×4 (03:07→17:18)
[2016-07-27] MEDS: INSULIN NovoLIN REGULAR SUPPLEMENTAL SCALE SQ SCH ×4 (06:13→21:05)
[2016-07-27] MEDS: INSULIN HUMAN NPH 1,000 UNITS/10 ML VIAL SQ SCH ×2 (07:20→18:34)
[2016-07-27] MEDS: SODIUM CHLORIDE 0.9% FLUSH 5 ML FLUSH FLUSH SCH ×2 (07:44→20:54)
[2016-07-27] MEDS ORDERED: INSULIN HUMAN NPH 1,000 UNITS/10 ML VIAL SQ SCH (08:00)
[2016-07-27 08:41] LABS: BICARBONATE 25.2 MEQ/L (21.0-32.0); POTASSIUM 4.1 MEQ/L (3.5-5.1)
[2016-07-27 08:44] LABS: BASOPHIL # 0.1 TH/MM3 (0-0.2); BASOPHIL % 0.5 % (0.0-2.0); EOSINOPHIL # 0.3 TH/MM3 (0-0.4); HEMATOCRIT 25.1 % (39.0-51.0); HEMO FLAGS DIFF FINAL; LYMPH % 10.1 % (9.0-44.0); LYMPHOCYTE # 1.1 TH/MM3 (1.0-4.8); MEAN CORPUSCULAR HEMOGLOBIN 27.1 PG (27.0-34.0); MEAN CORPUSCULAR HGB CONC 33.4 % (32.0-36.0); MONO % 7.3 % (0.0-8.0); NEUT % 79.1 % (16.0-70.0); PLATELET COUNT 307 TH/MM3 (150-450); RED CELL DISTRIBUTION WIDTH 15.3 % (11.6-17.2); WHITE BLOOD COUNT 11.3 TH/MM3 (4.0-11.0)
--- NOTE | 2016-07-27 09:39 | HHI.FPPN ---
Subjective Remarks Patient seen and examined this morning. Afebrile vital signs stable. Blood glucose 203. Blood cultures growing gram-positive cocci. Patient reports that he feels comfortable as long as he is lying in the bed. If he gets out of bed he feels nauseated and dizzy. (Hubert Courtney MD R2) Objective Vitals Vital Signs Date Time Temp Pulse Resp B/P Pulse Ox O2 Delivery O2 Flow Rate FiO2 07/27/16 04:07 18 07/26/16 21:51 18 07/26/16 20:00 97.8 74 16 127/74 97 07/26/16 16:00 97.4 84 18 134/73 98 07/26/16 13:52 96.8 88 20 168/96 100 I/O 07/26/16 07/26/16 07/26/16 07/27/16 07/27/16 07/27/16 07:00 15:00 23:00 07:00 15:00 23:00 Intake Total 2490 ml 1721 ml 720 ml 480 ml 2063 ml Output Total 550 ml 3250 ml 600 ml 450 ml Balance 1940 ml -1529 ml 120 ml 480 ml 1613 ml Intake Oral 1440 ml 960 ml 720 ml 480 ml IV Total 1050 ml 761 ml 2063 ml Output Urine Total 550 ml 3250 ml 600 ml 450 ml (Hubert Courtney MD R2) Result Diagram: 07/27/16 0630 07/27/16 0630 Objective Remarks O. CONSTITUTIONAL/GEN: normally nourished, in NAD. EYES: conjunctiva normal, PERRLA, EOMI. ENT: Mouth and pharynx normal. 8X8 cm area of erythema and firm STS over norbert region of the left parotid gland. NECK: thyroid midline, carotids symmetrical. LUNGS: clear A-P, respiratory effort is normal. CARDIOVASCULAR: RR without murmur or gallop. No significant edema. NEURO: No focal deficits. SKIN: color normal other than area of cellulitis left face. PSYCH/MENTAL STATUS: Alert and oriented x 3. Medications and IVs Current Medications Medications (Trade) Dose Ordered Sig/Tri Route Start Time Stop Time Status Last Admin (NS Flush) 2 ml UNSCH PRN FLUSH 07/25/16 14:30 07/25/16 17:20 (NS Flush) 2 ml BID FLUSH 2/3/17 21:00 07/25/16 20:04 (Tylenol) 650 mg Q4H PRN PO 07/25/16 14:30 (Zofran Inj) 4 mg Q6H PRN IVP 07/25/16 14:30 07/26/16 07:02 Naloxone HCl 0.4 mg 0.4 mg UNSCH PRN IV 07/25/16 14:30 (NS 1000 ml Inj) 1,000 ml @ 125 mls/hr Q8H IV 07/25/16 15:30 07/26/16 12:34 ([place] 5-325 Mg) 1 tab Q4H PRN PO 07/25/16 14:30 ([place] 10-325 Mg) 1 tab Q4H PRN PO 07/25/16 14:30 07/27/16 07:21 (Dilaudid Pf Inj) 1 mg Q3H PRN IV 07/25/16 14:30 07/27/16 08:01 (Ativan) 1 mg Q8HR PRN PO 07/25/16 14:30 (Flomax) 0.4 mg HS PO 07/25/16 21:00 07/26/16 20:51 (D50w (Vial) Inj) 25 ml UNSCH PRN IV PUSH 07/26/16 08:30 (Glucagon Inj) 1 mg UNSCH PRN OTHER 07/26/16 08:30 (Trandate Inj) 10 mg Q6H PRN IV 07/26/16 08:30 (NovoLIN N INJ) 35 units DAILY@08 SQ 07/26/16 09:00 07/27/16 07:20 Insulin Human NPH 25 units 25 units DAILY@1900 SQ 07/26/16 19:00 07/26/16 18:18 (Vancomycin Consult Pharmacy) 0 ml @ 0 mls/hr UNSCH OTHER 07/26/16 14:15 (Emelia-Colace) 2 tab BID PO 07/27/16 09:45 (Dulcolax Supp) 10 mg DAILY PRN IN 07/27/16 09:45 (Milk Of Magnesia Liq) 30 ml BID PRN PO 07/27/16 09:45 (Hubert Courtney MD R2) A/P Assessment and Plan 56-year-old male with a past medical history significant for diabetes who is currently being treated for osteomyelitis with ciprofloxacin by infectious disease, now developed a large cellulitis to the left jaw. Being admitted for this cellulitis infection. Discharge Planning Pending improvement in clinical course (Hubert Courtney MD R2) Attending Attestation Case reviewed and discussed with the resident team. Agree with plan of care as discussed with me and documented in the resident note. (Vince Cook MD) Problem List: (1) Facial cellulitis Status: Acute Plan: Area of cellulitis improving with IV antibiotics * Admitted to inpatient * Consult infectious disease, recommendations appreciated * Continue vancomycin, renally dosed with pharmacy consult * Recent CT showed cellulitis no abscess * Postponing consult to maxillary surgery at this time until ID recommendations obtained Pain control * [place] 5/325 every 4 hours when necessary pain 3-5 * [place] 10/325 every 4 hours when necessary pain 610 * Dilaudid 1 mg IV every 3 hours when necessary breakthrough pain (2) Bacteremia Status: Acute Plan: Cultures growing MRSA Staphylococcus aureus. Currently not septic as he is afebrile, blood pressure is appropriate, normal cardiac rate * See cellulitis plan above (3) Osteomyelitis of foot Status: Chronic Plan: Chronic osteomyelitis of the foot. Being followed by ID. * IV vancomycin per ID recommendation * Wound care consult placed (4) DM (diabetes mellitus) Status: Chronic Plan: Long-standing history of poorly controlled diabetes. * Placed on NPH 25 AM, 35 at bedtime * Novolin sliding scale * Monitor blood glucose per protocol (5) Nutrition, metabolism, and development symptoms Status: Acute Plan: Diabetic diet Monitor electrolytes and replace accordingly Vitals every 4 SCDs for DVT prophylaxis Out of bed ad casey. CODE STATUS: Full code Disposition: To be determined later date with improvement of clinical findings (Hubert Courtney MD R2) Problem Qualifiers (1) Osteomyelitis of foot: Qualified Code: M86.9 - Osteomyelitis of right foot, unspecified type (2) DM (diabetes mellitus): Qualified Code: E11.621 - Type 2 diabetes mellitus with foot ulcer, with long- term current use of insulin Hubert Courtney MD R2 Jul 27, 2016 09:39 Vince Cook MD Jul 28, 2016 11:17
[2016-07-27] MEDS ORDERED: MAGNESIUM HYDROXIDE SUSP 30 ML CUP PO PRN (09:45)
[2016-07-27] MEDS ORDERED: BISACODYL 10 MG SUPP PR PRN (09:45)
[2016-07-27] MEDS: DOCUSATE SODIUM 50 MG/SENNA 8.6 MG TAB PO SCH ×2 (11:07→20:59)
[2016-07-27 11:40] VITALS: BP 153/66; PULSE 74; RESP 18; TEMP 97.2; O2SAT 98
[2016-07-27] MEDS: VANCOMYCIN INJ 1,700 MG in SODIUM CHLORID 0.9% 500 ML INJ 500 ML IV SCH (12:57)
--- NOTE | 2016-07-27 13:28 | HHI.IDPN ---
Note Infectious Disease Note Patient Notes pain in the face. Worse. Dizziness. Afebrile. Blood culture 07/23 and 07/25 has MRSA. This is a 56-year-old white male who presented to emergency department on 07/25 with facial pain and swelling. He was taking antibiotics in the form of Augmentin, Bactrim and ciprofloxacin which he said he has been taking for over a week. PAST MEDICAL HISTORY 1. Poorly controlled insulin diabetes type 2 2. chronic osteomyelitis, 3. Hypertension 4. Charcot feet. 5. History of fifth ray amputation. 6. Chronic right foot ulceration. ALLERGIES CODEINE Current Medications Medications (Trade) Dose Ordered Sig/Tri Route PRN Reason Start Time Stop Time Status Last Admin Dose Admin IV Flush (NS Flush) 2 ml UNSCH PRN FLUSH FLUSH AFTER USING IV ACCESS 07/25/16 14:30 07/25/16 17:20 IV Flush (NS Flush) 2 ml BID FLUSH 07/25/16 21:00 07/25/16 20:04 Acetaminophen (Tylenol) 650 mg Q4H PRN PO TEMP > 100.4 07/25/16 14:30 Ondansetron HCl (Zofran Inj) 4 mg Q6H PRN IVP NAUSEA OR VOMITING 07/25/16 14:30 07/26/16 07:02 Naloxone HCl 0.4 mg 0.4 mg UNSCH PRN IV SEE LABEL COMMENTS 07/25/16 14:30 Sodium Chloride (NS 1000 ml Inj) 1,000 ml @ 125 mls/hr Q8H IV 07/25/16 15:30 07/26/16 12:34 Acetaminophen/ Hydrocodone Bitart ([place] 5-325 Mg) 1 tab Q4H PRN PO PAIN SCALE 3 TO 5 07/25/16 14:30 Acetaminophen/ Hydrocodone Bitart ([place] 10-325 Mg) 1 tab Q4H PRN PO PAIN SCALE 6 TO 10 07/25/16 14:30 07/27/16 12:57 Hydromorphone HCl (Dilaudid Pf Inj) 1 mg Q3H PRN IV BREAKTHROUGH PAIN 07/25/16 14:30 07/27/16 11:07 Lorazepam (Ativan) 1 mg Q8HR PRN PO ANXIETY AND/OR AGITATION 07/25/16 14:30 Tamsulosin HCl (Flomax) 0.4 mg HS PO 07/25/16 21:00 07/26/16 20:51 Dextrose (D50w (Vial) Inj) 25 ml UNSCH PRN IV PUSH HYPOGLYCEMIA-SEE COMMENTS 07/26/16 08:30 Glucagon (Glucagon Inj) 1 mg UNSCH PRN OTHER HYPOGLYCEMIA-SEE COMMENTS 07/26/16 08:30 Labetalol HCl (Trandate Inj) 10 mg Q6H PRN IV SEE LABEL COMMENTS 07/26/16 08:30 Insulin Human NPH (NovoLIN N INJ) 35 units DAILY@08 SQ 07/26/16 09:00 07/27/16 07:20 Insulin Human NPH 25 units 25 units DAILY@1900 SQ 07/26/16 19:00 07/26/16 18:18 Pharmacy Profile Note (Vancomycin Consult Pharmacy) 0 ml @ 0 mls/hr UNSCH OTHER 07/26/16 14:15 Senna/Docusate Sodium (Emelia-Colace) 2 tab BID PO 07/27/16 09:45 07/27/16 11:07 Bisacodyl (Dulcolax Supp) 10 mg DAILY PRN MS CONSTIPATION 07/27/16 09:45 Magnesium Hydroxide 30 ml 30 ml BID PRN PO CONSTIPATION 07/27/16 09:45 Vancomycin HCl/ Sodium Chloride (Vancomycin Inj/ NS 500 ml Inj) 517 ml @ 250 mls/hr Q24H IV 07/27/16 13:00 07/27/16 12:57 Miscellaneous Information SPECIFIC LAB TO BE DRAWN:VANCOMY... ONCE ONCE XX 07/29/16 12:45 07/29/16 12:46 OBJECTIVE: Vital Signs Date Time Temp Pulse Resp B/P Pulse Ox O2 Delivery O2 Flow Rate FiO2 07/27/16 11:40 97.2 74 18 153/66 98 07/27/16 04:07 18 07/26/16 21:51 18 07/26/16 20:00 97.8 74 16 127/74 97 07/26/16 16:00 97.4 84 18 134/73 98 07/26/16 13:52 96.8 88 20 168/96 100 07/26/16 07/26/16 07/27/16 15:00 23:00 07:00 Intake Total 1721 ml 720 ml 480 ml Output Total 3250 ml 600 ml Balance -1529 ml 120 ml 480 ml Intake Oral 960 ml 720 ml 480 ml IV Total 761 ml Output Urine Total 3250 ml 600 ml Laboratory Tests Test 07/25/16 07/27/16 15:15 06:30 White Blood Count 13.4 TH/MM3 11.3 TH/MM3 Red Blood Count 3.29 MIL/MM3 3.10 MIL/MM3 Hemoglobin 8.9 GM/DL 8.4 GM/DL Hematocrit 26.6 % 25.1 % Mean Corpuscular Volume 80.8 FL 81.0 FL Mean Corpuscular Hemoglobin 27.0 PG 27.1 PG Mean Corpuscular Hemoglobin 33.4 % 33.4 % Concent Red Cell Distribution Width 15.2 % 15.3 % Platelet Count 286 TH/MM3 307 TH/MM3 Mean Platelet Volume 7.7 FL 7.7 FL Neutrophils (%) (Auto) 87.8 % 79.1 % Lymphocytes (%) (Auto) 5.6 % 10.1 % Monocytes (%) (Auto) 5.7 % 7.3 % Eosinophils (%) (Auto) 0.5 % 3.0 % Basophils (%) (Auto) 0.4 % 0.5 % Neutrophils # (Auto) 11.8 TH/MM3 9.0 TH/MM3 Lymphocytes # (Auto) 0.8 TH/MM3 1.1 TH/MM3 Monocytes # (Auto) 0.8 TH/MM3 0.8 TH/MM3 Eosinophils # (Auto) 0.1 TH/MM3 0.3 TH/MM3 Basophils # (Auto) 0.1 TH/MM3 0.1 TH/MM3 CBC Comment DIFF FINAL DIFF FINAL Differential Comment Laboratory Tests Test 07/25/16 07/27/16 15:15 06:30 Sodium Level 132 MEQ/L 134 MEQ/L Potassium Level 4.4 MEQ/L 4.1 MEQ/L Chloride Level 99 MEQ/L 101 MEQ/L Carbon Dioxide Level 26.2 MEQ/L 25.2 MEQ/L Anion Gap 7 MEQ/L 8 MEQ/L Blood Urea Nitrogen 45 MG/DL 29 MG/DL Creatinine 2.06 MG/DL 1.57 MG/DL Estimat Glomerular Filtration 33 ML/MIN 46 ML/MIN Rate Random Glucose 237 MG/DL 175 MG/DL Calcium Level 9.1 MG/DL 7.9 MG/DL Microbiology Date/Time Procedure Status Source Growth 07/25/16 15:15 Aerobic Blood Culture - Preliminary Resulted Blood Peripheral NO GROWTH IN 2 DAYS 07/25/16 15:15 Anaerobic Blood Culture - Preliminary Resulted Blood Peripheral NO GROWTH IN 2 DAYS 07/25/16 15:30 Aerobic Blood Culture - Preliminary Resulted Blood Peripheral NO GROWTH IN 2 DAYS 07/25/16 15:30 Anaerobic Blood Culture - Preliminary Resulted S. Aureus Mrsa 07/26/16 18:15 Gram Stain - Final Resulted Wound Foot 07/26/16 18:15 Wound Culture Resulted Wound Foot Pending PHYSICAL EXAMINATION GENERAL: No acute distress. HEAD, EYES, EARS, NOSE, AND THROAT: Area of swelling is larger with erythema at the left face encompassing the area in front of the left ear and wrapping around the left cheek to the submandibular region. Still extremely tender to palpation. The extraocular movements are grossly intact, pupils reactive to light. No icterus. Oral mucosa - moist. NECK: Supple without adenopathy. LUNGS: Clear breath sounds HEART: Regular rate and rhythm without murmurs, rubs or gallops. ABDOMEN: Bowel sounds present, soft, no tenderness appreciated. EXTREMITIES: No clubbing or cyanosis or edema. The right foot has deformity from prior surgery and Charcot's joint disease. There is absent fifth toe and there is a shallow ulceration at the lateral aspect of the right great toe which has no significant drainage. There is another ulceration at the plantar aspect of the foot, where there is angulation from the Charcot's. this is around the region of the mid aspect of the foot. No significant drainage except for drainage on the dressing and there is no purulence. The right foot has no erythema. The distal pulses difficult to palpate at the dorsalis pedis on the right foot. Pulses 2+ NEUROLOGIC: Nonfocal. PSYCHATRIC: Calm, irritable. IMPRESSION 1. Facial cellulitis. Probable abscess. 2. Bacteremia due to MRSA likely resulting from facial infection. 3. Chronic right foot ulceration. 4. Acute kidney disease on chronic kidney disease. RECOMMENDATIONS 1. Continue vancomycin . Pharmacy dosing. 2. CT Scan of the face and drainage if abscess present. D/W Dr. Courtney. 3. Repeat blood cultures in am. 4. Follow culture of the foot. 5. Monitor the patient's response to antibiotic treatment. Gabino Wilhelm MD Jul 27, 2016 13:28 Gabino Wilhelm MD Jul 27, 2016 13:28
[2016-07-27] MEDS ORDERED: DEXAMETHASONE SOD PHOS 4 MG/ML VIAL IV PUSH ONE (14:15)
[2016-07-27] MEDS: HYDROmorphone HCL PF 2 MG/ML VIAL IV PRN ×3 (14:34→20:58)
[2016-07-27 15:14] VITALS: BP 118/64; PULSE 83; RESP 16; O2SAT 98
[2016-07-27] MEDS: SODIUM CHLOR 0.9% 1000 ML INJ 1,000 ML IV SCH ×2 (16:38→23:30)
[2016-07-27 18:42] VITALS: BP 167/87; PULSE 84; RESP 20; TEMP 96.6; O2SAT 96
[2016-07-27 20:00] VITALS: BP 184/97; PULSE 91; RESP 18; TEMP 97.1; O2SAT 97
[2016-07-27] MEDS: TAMSULOSIN HCL 0.4 MG CAP PO SCH (20:59)
[2016-07-28] MEDS: HYDROmorphone HCL PF 2 MG/ML VIAL IV PRN ×6 (01:33→22:24)
[2016-07-28] MEDS: INSULIN NovoLIN REGULAR SUPPLEMENTAL SCALE SQ SCH ×4 (07:00→21:45)
[2016-07-28] MEDS ORDERED: LABETALOL HCL 100 MG/20 ML VIAL IV PRN (07:15)
[2016-07-28] MEDS: SODIUM CHLOR 0.9% 1000 ML INJ 1,000 ML IV SCH ×3 (07:30→23:21)
[2016-07-28 07:50] VITALS: BP 165/90; PULSE 89; RESP 20; TEMP 97.9; O2SAT 98
[2016-07-28] MEDS: INSULIN HUMAN NPH 1,000 UNITS/10 ML VIAL SQ SCH ×2 (08:00→19:00)
[2016-07-28] MEDS: SODIUM CHLORIDE 0.9% FLUSH 5 ML FLUSH FLUSH SCH ×2 (08:23→21:00)
[2016-07-28] MEDS: DOCUSATE SODIUM 50 MG/SENNA 8.6 MG TAB PO SCH ×2 (08:24→21:00)
[2016-07-28 09:18] LABS: HEMATOCRIT 25.8 % (39.0-51.0); MEAN CELL VOLUME 80.6 FL (80.0-100.0); MEAN CORPUSCULAR HEMOGLOBIN 27.1 PG (27.0-34.0); MEAN CORPUSCULAR HGB CONC 33.6 % (32.0-36.0); PLATELET COUNT 374 TH/MM3 (150-450); RED BLOOD COUNT 3.21 MIL/MM3 (4.50-5.90); RED CELL DISTRIBUTION WIDTH 14.7 % (11.6-17.2); REVIEW FLAG FINAL; WHITE BLOOD COUNT 10.6 TH/MM3 (4.0-11.0)
[2016-07-28 10:07] LABS: BICARBONATE 26.6 MEQ/L (21.0-32.0)
[2016-07-28] MEDS ORDERED: cloNIDine HCL 0.1 MG TAB PO PRN (10:45)
--- NOTE | 2016-07-28 10:49 | RADRPT ---
EXAM DATE/TIME: 07/28/2016 10:37 [facility] COMPARISON: CT FACIAL BONES W CONTRAST, July 23, 2016, 18:27. INDICATIONS : Abscess drain of jaw FINDINGS: Evaluation of the recent CT of the facial bones with contrast was performed to determine if there is a drainable abscess present. There is diffuse cellulitis involving the left face with no definite antolin inable abscess identified. CONCLUSION: Evaluation of the recent CT of the facial bones with contrast dated 07/23/16 shows no definite drainabl e abscess. No more recent studies are available for review. Nixon Garcia MD on July 28, 2016 at 10:43 Board Certified Radiologist. This report was verified electronically.
--- NOTE | 2016-07-28 11:02 | HHI.FPPN ---
Subjective Remarks Patient seen and examined this morning. No acute events overnight. Endorses continued pain this morning. Endorses some nausea when he gets up. Denies fever/ chills, chest pain, SOB, abdominal pain. (Solo Naranjo MD R1) Objective Vitals Vital Signs Date Time Temp Pulse Resp B/P Pulse Ox O2 Delivery O2 Flow Rate FiO2 07/28/16 07:50 97.9 89 20 165/90 98 07/28/16 02:03 18 07/27/16 21:02 18 07/27/16 20:00 97.1 91 18 184/97 97 07/27/16 18:42 96.6 84 20 167/87 96 07/27/16 15:14 83 16 118/64 98 07/27/16 11:40 97.2 74 18 153/66 98 I/O 07/27/16 07/27/16 07/27/16 07/28/16 07/28/16 07/28/16 07:00 15:00 23:00 07:00 15:00 23:00 Intake Total 480 ml 3249 ml 652 ml Output Total 900 ml 1000 ml Balance 480 ml 2349 ml 652 ml -1000 ml Intake Oral 480 ml 360 ml 240 ml IV Total 2889 ml 412 ml Output Urine Total 900 ml 1000 ml (Solo Naranjo MD R1) Result Diagram: 07/28/16 0750 07/28/16 0750 Objective Remarks O. CONSTITUTIONAL/GEN: normally nourished, in NAD. EYES: conjunctiva normal, PERRLA, EOMI. ENT: Mouth and pharynx normal. 8X8 cm area of erythema and firm STS over the region of the left parotid gland, improving NECK: thyroid midline, carotids symmetrical. LUNGS: clear A-P, respiratory effort is normal. CARDIOVASCULAR: RR without murmur or gallop. No significant edema. NEURO: No focal deficits. SKIN: color normal other than area of cellulitis left face. PSYCH/MENTAL STATUS: Alert and oriented x 3. (Solo Naranjo MD R1) A/P Assessment and Plan 56-year-old male with a past medical history significant for diabetes who is currently being treated for osteomyelitis with ciprofloxacin by infectious disease, now developed a large cellulitis to the left jaw. Being admitted for this cellulitis infection. Discharge Planning Pending improvement in clinical course (Solo Naranjo MD R1) Attending Attestation Patient seen and examined. Case reviewed and discussed with the resident team. Agree with plan of care as discussed with me and documented in the resident note. (Vince Cook MD) Problem List: (1) Facial cellulitis Status: Acute Plan: Area of cellulitis improving with IV antibiotics * Admitted to inpatient * Consult infectious disease, recommendations appreciated * Continue vancomycin, renally dosed with pharmacy consult * Recent CT showed cellulitis no abscess * Postponing consult to maxillary surgery at this time until ID recommendations obtained * CT consultation, reports no abscess to drain. Pain control * [place] 5/325 every 4 hours when necessary pain 3-5 * [place] 10/325 every 4 hours when necessary pain 610 * Dilaudid 1 mg IV every 3 hours when necessary breakthrough pain (2) Bacteremia Status: Acute Plan: Cultures growing MRSA Staphylococcus aureus. Currently not septic as he is afebrile, blood pressure is appropriate, normal cardiac rate * See cellulitis plan above (3) Osteomyelitis of foot Status: Chronic Plan: Chronic osteomyelitis of the foot. Being followed by ID. * IV vancomycin per ID recommendation * Wound care consult placed (4) DM (diabetes mellitus) Status: Chronic Plan: Long-standing history of poorly controlled diabetes. * Placed on NPH 25 AM, 35 at bedtime * Novolin sliding scale * Monitor blood glucose per protocol (5) Nutrition, metabolism, and development symptoms Status: Acute Plan: Diabetic diet Monitor electrolytes and replace accordingly Vitals every 4 SCDs for DVT prophylaxis Out of bed ad casey. CODE STATUS: Full code Disposition: To be determined later date with improvement of clinical findings (Solo Naranjo MD R1) Problem Qualifiers (1) Osteomyelitis of foot: Qualified Code: M86.9 - Osteomyelitis of right foot, unspecified type (2) DM (diabetes mellitus): Qualified Code: E11.621 - Type 2 diabetes mellitus with foot ulcer, with long- term current use of insulin Solo Naranjo MD R1 Jul 28, 2016 11:02 Vince Cook MD Jul 28, 2016 11:23
[2016-07-28] MEDS: ACETAMINOPHEN/HYDROcodone 325 MG/10 MG TAB PO PRN ×3 (11:06→21:39)
[2016-07-28] MEDS: VANCOMYCIN INJ 1,700 MG in SODIUM CHLORID 0.9% 500 ML INJ 500 ML IV SCH (12:28)
[2016-07-28 12:44] VITALS: BP 165/90; PULSE 84; RESP 20; TEMP 96.7; O2SAT 100
--- NOTE | 2016-07-28 13:40 | HHI.IDPN ---
Note Infectious Disease Note Patient Notes pain in the face. 9/10 scale. Afebrile. No other complaints. Left face swelling is increased. Blood culture 07/23 and 07/25 has MRSA. Wound culture from left foot has MRSA and Pseudomonas species. This is a 56-year-old white male who presented to emergency department on 07/25 with facial pain and swelling. He was taking antibiotics in the form of Augmentin, Bactrim and ciprofloxacin. PAST MEDICAL HISTORY 1. Poorly controlled insulin diabetes type 2 2. chronic osteomyelitis l foot, 3. Hypertension 4. Charcot feet. 5. History of fifth ray amputation. 6. Chronic right foot ulceration. ALLERGIES CODEINE ANTIBIOTICS: Vancomycin. OBJECTIVE: Vital Signs Date Time Temp Pulse Resp B/P Pulse Ox O2 Delivery O2 Flow Rate FiO2 07/28/16 12:44 96.7 84 20 165/90 100 07/28/16 07:50 97.9 89 20 165/90 98 07/28/16 02:03 18 07/27/16 21:02 18 07/27/16 20:00 97.1 91 18 184/97 97 07/27/16 18:42 96.6 84 20 167/87 96 07/27/16 15:14 83 16 118/64 98 07/27/16 07/27/16 07/28/16 15:00 23:00 07:00 Intake Total 3249 ml 652 ml Output Total 900 ml 1000 ml Balance 2349 ml 652 ml -1000 ml Intake Oral 360 ml 240 ml IV Total 2889 ml 412 ml Output Urine Total 900 ml 1000 ml Laboratory Tests Test 07/27/16 07/28/16 06:30 07:50 White Blood Count 11.3 TH/MM3 10.6 TH/MM3 Red Blood Count 3.10 MIL/MM3 3.21 MIL/MM3 Hemoglobin 8.4 GM/DL 8.7 GM/DL Hematocrit 25.1 % 25.8 % Mean Corpuscular Volume 81.0 FL 80.6 FL Mean Corpuscular Hemoglobin 27.1 PG 27.1 PG Mean Corpuscular Hemoglobin 33.4 % 33.6 % Concent Red Cell Distribution Width 15.3 % 14.7 % Platelet Count 307 TH/MM3 374 TH/MM3 Mean Platelet Volume 7.7 FL 7.4 FL Neutrophils (%) (Auto) 79.1 % Lymphocytes (%) (Auto) 10.1 % Monocytes (%) (Auto) 7.3 % Eosinophils (%) (Auto) 3.0 % Basophils (%) (Auto) 0.5 % Neutrophils # (Auto) 9.0 TH/MM3 Lymphocytes # (Auto) 1.1 TH/MM3 Monocytes # (Auto) 0.8 TH/MM3 Eosinophils # (Auto) 0.3 TH/MM3 Basophils # (Auto) 0.1 TH/MM3 CBC Comment DIFF FINAL Differential Comment Laboratory Tests Test 07/27/16 07/28/16 06:30 07:50 Sodium Level 134 MEQ/L 132 MEQ/L Potassium Level 4.1 MEQ/L 4.0 MEQ/L Chloride Level 101 MEQ/L 99 MEQ/L Carbon Dioxide Level 25.2 MEQ/L 26.6 MEQ/L Anion Gap 8 MEQ/L 6 MEQ/L Blood Urea Nitrogen 29 MG/DL 26 MG/DL Creatinine 1.57 MG/DL 1.46 MG/DL Estimat Glomerular Filtration 46 ML/MIN 50 ML/MIN Rate Random Glucose 175 MG/DL 234 MG/DL Calcium Level 7.9 MG/DL 8.0 MG/DL Microbiology Date/Time Procedure Status Source Growth 07/25/16 15:15 Aerobic Blood Culture - Preliminary Resulted Blood Peripheral NO GROWTH IN 3 DAYS 07/25/16 15:15 Anaerobic Blood Culture - Preliminary Resulted Blood Peripheral NO GROWTH IN 3 DAYS 07/25/16 15:30 Aerobic Blood Culture - Preliminary Resulted Blood Peripheral NO GROWTH IN 3 DAYS 07/25/16 15:30 Anaerobic Blood Culture - Final Resulted S. Aureus Mrsa 07/26/16 18:15 Gram Stain - Final Resulted Wound Foot 07/26/16 18:15 Wound Culture - Preliminary Resulted Pseudomonas Species S. Aureus Mrsa Gram Negative Rafael 07/28/16 07:50 Aerobic Blood Culture Received Blood Peripheral Pending 07/28/16 07:50 Anaerobic Blood Culture Received Blood Peripheral Pending 07/28/16 07:50 Aerobic Blood Culture Received Blood Peripheral Pending 07/28/16 07:50 Anaerobic Blood Culture Received Blood Peripheral Pending PHYSICAL EXAMINATION GENERAL: No acute distress. HEAD, EYES, EARS, NOSE, AND THROAT: Area of swelling is larger with erythema at the left face encompassing the area in front of the left ear and wrapping around the left cheek to the submandibular region. This is still extremely tender to palpation. The extraocular movements are grossly intact, pupils reactive to light. No icterus. Oral mucosa - moist. NECK: Supple without adenopathy. LUNGS: Clear breath sounds HEART: Regular rate and rhythm without murmurs, rubs or gallops. ABDOMEN: Bowel sounds present, soft, no tenderness appreciated. EXTREMITIES: No clubbing or cyanosis or edema. The right foot has deformity from prior surgery and Charcot's joint disease. There is absent fifth toe and there is a shallow ulceration at the lateral aspect of the right great toe which has no significant drainage. There is another ulceration at the plantar aspect of the foot, where there is angulation from the Charcot's. this is around the region of the mid aspect of the foot. The right foot has no erythema. pulses 2+. NEUROLOGIC: Nonfocal. PSYCHIATRIC: Calm and irritable. IMPRESSION 1. Facial cellulitis. Probable abscess. 2. Bacteremia due to MRSA likely resulting from facial infection. 3. Chronic right foot ulceration. MRSA/Pseudomonas on current culture. 4. Acute kidney disease on chronic kidney disease. RECOMMENDATIONS 1. Continue vancomycin . Pharmacy dosing. 2. Add Cefepime for pseudomonas. 3. CT Scan of the face and drainage if abscess present. Will discuss with radiology. 4. Follow repeat blood cultures. 5. Follow culture of the foot. 6. Monitor the patient's response to antibiotic treatment. Gabino Wilhelm MD Jul 28, 2016 13:40 allergic reaction. However, I would avoid these antibiotics at this time. Gabino Wilhelm MD Jul 28, 2016 13:40
[2016-07-28] MEDS: CEFEPIME INJ 1,000 MG in SODIUM CHLORIDE 0.9% INJ 100 ML IV SCH (14:39)
[2016-07-28 15:00] VITALS: BP 197/108; PULSE 87; RESP 20; TEMP 97.7; O2SAT 95
--- NOTE | 2016-07-28 17:04 | RADRPT ---
EXAM DATE/TIME: 07/28/2016 16:25 [facility] COMPARISON: CT FACIAL BONES W CONTRAST, July 23, 2016, 18:27. INDICATIONS : Left sided facial swelling, evaluate for abscess. IV CONTRAST: 70 cc Omnipaque 350 (iohexol) IV RADIATION DOSE: 54.79 CTDIvol (mGy) MEDICAL HISTORY : Hypertension. Cardiovascular disease diabetes SURGICAL HISTORY : Appendectomy. ENCOUNTER: Initial ACUITY: 1 day PAIN SCALE: 7/10 LOCATION: Left face TECHNIQUE: Volumetric scanning of the facial bones was performed. Using automated exposure control and adjustme nt of the mA and/or kV according to patient size, radiation dose was kept as low as reasonably achiev able to obtain optimal diagnostic quality images. FINDINGS: CT scan of facial bones is compared to the prior study with increasing cellulitis subcutaneous edema as well as further enlargement of the masseter and left parotid gland but no evidence of drainable ab scess. A 5 mm lymph node is a small droplet of gas within it.. No stones are identified. Visualized i ntracranial structures are unremarkable. Vascular structures are intact. CONCLUSION: 1. Increasing cellulitis,parotitis and myositis involving the left masseter muscle without evidence o f abscess. Jose Manuel Naranjo MD on July 28, 2016 at 16:57 Board Certified Radiologist. This report was verified electronically.
[2016-07-28] MEDS ORDERED: IOHEXOL 350 MG/ML 10 ML VIAL (for RAD DIAG) IV ONE (17:07)
[2016-07-28 20:00] VITALS: BP 135/73; PULSE 90; RESP 18; TEMP 97.3; O2SAT 97
[2016-07-28] MEDS: TAMSULOSIN HCL 0.4 MG CAP PO SCH (21:38)
[2016-07-29] MEDS: HYDROmorphone HCL PF 2 MG/ML VIAL IV PRN ×5 (01:52→19:46)
[2016-07-29] MEDS: SODIUM CHLORIDE 0.9% FLUSH 5 ML FLUSH FLUSH PRN (01:54)
[2016-07-29] MEDS: ONDANSETRON HCL 4 MG/2 ML VIAL IVP PRN ×2 (01:56→09:06)
[2016-07-29 03:00] VITALS: BP 166/90; PULSE 77; RESP 15; O2SAT 95
[2016-07-29] MEDS: ACETAMINOPHEN/HYDROcodone 325 MG/10 MG TAB PO PRN ×4 (03:02→23:46)
[2016-07-29] MEDS: INSULIN NovoLIN REGULAR SUPPLEMENTAL SCALE SQ SCH ×4 (06:00→21:00)
[2016-07-29] MEDS: SODIUM CHLOR 0.9% 1000 ML INJ 1,000 ML IV SCH ×3 (06:03→23:47)
--- NOTE | 2016-07-29 08:46 | HHI.FPPN ---
Subjective Remarks Patient seen and examined this morning. Afebrile vital signs stable. Today patient was complaining as to why he has cellulitis, claiming that and 56 years of life history had a rash or cellulitis. Politely informed him that his osteomyelitis most likely started from cellulitis. Patient is wondering the timeline for treatment. Recent CT does not show any new abscess to be drained. We'll have to continue IV antibiotics at this time timeline to be determined by infectious disease. (Hubert Courtney MD R2) Objective Vitals Vital Signs Date Time Temp Pulse Resp B/P Pulse Ox O2 Delivery O2 Flow Rate FiO2 07/29/16 03:00 77 15 166/90 95 07/28/16 20:00 97.3 90 18 135/73 97 07/28/16 15:00 97.7 87 20 197/108 95 07/28/16 12:44 96.7 84 20 165/90 100 I/O 07/28/16 07/28/16 07/28/16 07/29/16 07/29/16 07/29/16 07:00 15:00 23:00 07:00 15:00 23:00 Intake Total 480 ml 2160 ml Output Total 1000 ml 1400 ml Balance -1000 ml -920 ml 2160 ml Intake Oral 480 ml IV Total 2160 ml Output Urine Total 1000 ml 1400 ml # Bowel Movements 0 (Hubert Courtney MD R2) Result Diagram: 07/28/16 0750 07/28/16 0750 Imaging Last Impressions Consultation 07/28/16 1037 Signed Impressions: Service Date/Time: Thursday, July 28, 2016 10:37 - CONCLUSION: Evaluation of the recent CT of the facial bones with contrast dated 07/23/16 shows no definite drainable abscess. No more recent studies are available for review. Nixon Garcia MD Maxillofacial CT 07/28/16 0000 Signed Impressions: Service Date/Time: Thursday, July 28, 2016 16:25 - CONCLUSION: 1. Increasing cellulitis,parotitis and myositis involving the left masseter muscle without evidence of abscess. Jose Manuel Naranjo MD Objective Remarks O. CONSTITUTIONAL/GEN: normally nourished, in NAD. EYES: conjunctiva normal, PERRLA, EOMI. ENT: Mouth and pharynx normal. 8X8 cm area of erythema and firm STS over the region of the left parotid gland, unchanged from previous exam NECK: thyroid midline, carotids symmetrical. LUNGS: clear A-P, respiratory effort is normal. CARDIOVASCULAR: RR without murmur or gallop. No significant edema. NEURO: No focal deficits. SKIN: color normal other than area of cellulitis left face. PSYCH/MENTAL STATUS: Alert and oriented x 3. Medications and IVs Current Medications Medications (Trade) Dose Ordered Sig/Tri Route Start Time Stop Time Status Last Admin (NS Flush) 2 ml UNSCH PRN FLUSH 07/25/16 14:30 07/29/16 01:54 (NS Flush) 2 ml BID FLUSH 07/25/16 21:00 07/28/16 21:00 (Tylenol) 650 mg Q4H PRN PO 07/25/16 14:30 (Zofran Inj) 4 mg Q6H PRN IVP 07/25/16 14:30 07/29/16 01:56 Naloxone HCl 0.4 mg 0.4 mg UNSCH PRN IV 07/25/16 14:30 (NS 1000 ml Inj) 1,000 ml @ 125 mls/hr Q8H IV 07/25/16 15:30 07/29/16 06:03 ([place] 5-325 Mg) 1 tab Q4H PRN PO 07/25/16 14:30 07/27/16 20:02 ([place] 10-325 Mg) 1 tab Q4H PRN PO 07/25/16 14:30 07/29/16 03:02 (Flomax) 0.4 mg HS PO 07/25/16 21:00 07/28/16 21:38 (D50w (Vial) Inj) 25 ml UNSCH PRN IV PUSH 07/26/16 08:30 (Glucagon Inj) 1 mg UNSCH PRN OTHER 07/26/16 08:30 (NovoLIN N INJ) 35 units DAILY@08 SQ 07/26/16 09:00 07/28/16 08:00 Insulin Human NPH 25 units 25 units DAILY@1900 SQ 07/26/16 19:00 07/28/16 19:00 (Vancomycin Consult Pharmacy) 0 ml @ 0 mls/hr UNSCH OTHER 07/26/16 14:15 (Emelia-Colace) 2 tab BID PO 07/27/16 09:45 07/28/16 08:24 (Dulcolax Supp) 10 mg DAILY PRN GA 07/27/16 09:45 Magnesium Hydroxide 30 ml 30 ml BID PRN PO 07/27/16 09:45 07/28/16 21:56 (Vancomycin Inj/ NS 500 ml Inj) 517 ml @ 250 mls/hr Q24H IV 07/27/16 13:00 07/28/16 12:28 Miscellaneous Information SPECIFIC LAB TO BE DRAWN:VANCOMY... ONCE ONCE XX 07/29/16 12:45 07/29/16 12:46 Clonidine 0.1 mg 0.1 mg Q6H PRN PO 07/28/16 10:45 (Maxipime Inj/NS Inj) 100 ml @ 200 mls/hr Q24H IV 07/28/16 14:00 07/28/16 14:39 (Dilaudid Pf Inj) 2 mg Q3H PRN IV 07/29/16 05:30 07/29/16 05:59 (Hubert Courtney MD R2) A/P Assessment and Plan 56-year-old male with a past medical history significant for diabetes who is currently being treated for osteomyelitis with ciprofloxacin by infectious disease, now developed a large cellulitis to the left jaw. Admitted for this cellulitis infection, found to be bacteremic with MRSA. Discharge Planning Pending improvement in clinical course (Hubert Courtney MD R2) Attending Attestation Case reviewed and discussed with the resident team. Agree with plan of care as discussed with me and documented in the resident note. (Vince Cook MD) Problem List: (1) Facial cellulitis Status: Acute Plan: Area of cellulitis stable with IV antibiotics * Admitted to inpatient * Infectious disease consulted, recommendations appreciated * Continue vancomycin, renally dosed with pharmacy consult * Recent CT showed cellulitis no abscess * No abscess for drainage at this time Pain control * [place] 5/325 every 4 hours when necessary pain 3-5 * [place] 10/325 every 4 hours when necessary pain 610 * Dilaudid 2 mg IV every 3 hours when necessary breakthrough pain (2) Bacteremia Status: Acute Plan: Cultures growing MRSA Staphylococcus aureus. Currently not septic as he is afebrile, blood pressure is appropriate, normal cardiac rate * See cellulitis plan above (3) Osteomyelitis of foot Status: Chronic Plan: Chronic osteomyelitis of the foot. Being followed by ID. * IV vancomycin per ID recommendation * Wound care consult placed (4) DM (diabetes mellitus) Status: Chronic Plan: Long-standing history of poorly controlled diabetes. * Placed on NPH 25 AM, 35 at bedtime * Novolin sliding scale * Monitor blood glucose per protocol (5) [id number] kidney injury Status: Acute Plan: He is having acute on chronic kidney disease at this time. Believed to be due to dehydration from multiple episodes of nausea and vomiting, on top of chronic kidney injury due to poorly controlled diabetes. Improving with adequate oral hydration and IV fluids. On admission BUN/creatinine was 45/ 2.06. Most recent BUN/creatinine is 26/1.46, improving, today's labs have not been obtained as of note * Renally dosing vancomycin at this time * Avoid kidney injuring medications (6) Nutrition, metabolism, and development symptoms Status: Acute Plan: Diabetic diet Monitor electrolytes and replace accordingly Vitals every 4 SCDs for DVT prophylaxis Out of bed ad casey. CODE STATUS: Full code Disposition: To be determined later date with improvement of clinical findings (Hubert Courtney MD R2) Problem Qualifiers (1) Osteomyelitis of foot: Qualified Code: M86.9 - Osteomyelitis of right foot, unspecified type (2) DM (diabetes mellitus): Qualified Code: E11.621 - Type 2 diabetes mellitus with foot ulcer, with long- term current use of insulin Hubert Courtney MD R2 Jul 29, 2016 08:45 Vince Cook MD Jul 29, 2016 09:38
[2016-07-29 09:00] VITALS: BP 167/97; PULSE 82; RESP 16; TEMP 97.6; O2SAT 97
[2016-07-29] MEDS: DOCUSATE SODIUM 50 MG/SENNA 8.6 MG TAB PO SCH ×2 (09:04→21:00)
[2016-07-29] MEDS: INSULIN HUMAN NPH 1,000 UNITS/10 ML VIAL SQ SCH ×2 (09:05→18:12)
[2016-07-29] MEDS: SODIUM CHLORIDE 0.9% FLUSH 5 ML FLUSH FLUSH SCH ×2 (09:05→21:24)
[2016-07-29 09:23] LABS: AUTOMATED NEUTROPHIL # 7.3 TH/MM3 (1.8-7.7); BASOPHIL # 0.1 TH/MM3 (0-0.2); BASOPHIL % 0.5 % (0.0-2.0); EOSINOPHIL # 0.4 TH/MM3 (0-0.4); EOSINOPHIL % 3.7 % (0.0-4.0); HEMATOCRIT 26.1 % (39.0-51.0); LYMPH % 16.5 % (9.0-44.0); LYMPHOCYTE # 1.7 TH/MM3 (1.0-4.8); MEAN CELL VOLUME 81.1 FL (80.0-100.0); MEAN CORPUSCULAR HEMOGLOBIN 27.5 PG (27.0-34.0); MEAN CORPUSCULAR HGB CONC 33.9 % (32.0-36.0); NEUT % 72.3 % (16.0-70.0); PLATELET COUNT 394 TH/MM3 (150-450); RED BLOOD COUNT 3.23 MIL/MM3 (4.50-5.90); RED CELL DISTRIBUTION WIDTH 15.4 % (11.6-17.2)
[2016-07-29 09:25] LABS: HEMO FLAGS AUTO DIFF
[2016-07-29 09:47] LABS: BICARBONATE 24.1 MEQ/L (21.0-32.0)
[2016-07-29 10:07] LABS: PLATELET ESTIMATE SMEAR NORMAL (NORMAL); PLATELET MORPHOLOGY NORMAL (NORMAL); SCAN/DIFF AUTO DIFF CONFIRMED
[2016-07-29 12:00] VITALS: BP 143/84; PULSE 106; RESP 16; TEMP 97.7; O2SAT 96
[2016-07-29] MEDS ORDERED: PHARMACY ORDERED LAB XX ONE (12:45)
[2016-07-29] MEDS: CEFEPIME INJ 1,000 MG in SODIUM CHLORIDE 0.9% INJ 100 ML IV SCH (13:04)
[2016-07-29] MEDS: HEPARIN SODIUM - SQ 10,000 UNITS/ML VIAL SQ SCH ×2 (13:10→19:49)
[2016-07-29] MEDS: VANCOMYCIN INJ 1,700 MG in SODIUM CHLORID 0.9% 500 ML INJ 500 ML IV SCH (14:02)
--- NOTE | 2016-07-29 16:18 | HHI.IDPN ---
Note Infectious Disease Note Patient Notes pain in the face. 8/10 scale. Afebrile. Had bleeding at the left side of the face after shaving. No other complaints. Want's to know when he can get out of Hospital. Left face still marked swelling and erythema. No abscess seen on repeat CT. Blood culture 07/23 and 07/25 has MRSA. Repeat blood culture pending. Wound culture from left foot has MRSA and Pseudomonas species and E. coli. . This is a 56-year-old white male who presented to emergency department on 07/25 with facial pain and swelling. He was taking antibiotics in the form of Augmentin, Bactrim and ciprofloxacin. PAST MEDICAL HISTORY 1. Poorly controlled insulin diabetes type 2 2. chronic osteomyelitis l foot, 3. Hypertension 4. Charcot feet. 5. History of fifth ray amputation. 6. Chronic right foot ulceration. ALLERGIES CODEINE ANTIBIOTICS: Vancomycin. Cefepime. OBJECTIVE: Vital Signs Date Time Temp Pulse Resp B/P Pulse Ox O2 Delivery O2 Flow Rate FiO2 07/29/16 12:00 97.7 106 16 143/84 96 07/29/16 09:00 97.6 82 16 167/97 97 07/29/16 03:00 77 15 166/90 95 07/28/16 20:00 97.3 90 18 135/73 97 07/28/16 07/28/16 07/29/16 15:00 23:00 07:00 Intake Total 480 ml 2160 ml Output Total 1400 ml Balance -920 ml 2160 ml Intake Oral 480 ml IV Total 2160 ml Output Urine Total 1400 ml # Bowel Movements 0 Laboratory Tests Test 07/28/16 07/29/16 07:50 08:48 White Blood Count 10.6 TH/MM3 10.0 TH/MM3 Red Blood Count 3.21 MIL/MM3 3.23 MIL/MM3 Hemoglobin 8.7 GM/DL 8.9 GM/DL Hematocrit 25.8 % 26.1 % Mean Corpuscular Volume 80.6 FL 81.1 FL Mean Corpuscular Hemoglobin 27.1 PG 27.5 PG Mean Corpuscular Hemoglobin 33.6 % 33.9 % Concent Red Cell Distribution Width 14.7 % 15.4 % Platelet Count 374 TH/MM3 394 TH/MM3 Mean Platelet Volume 7.4 FL 7.0 FL Neutrophils (%) (Auto) 72.3 % Lymphocytes (%) (Auto) 16.5 % Monocytes (%) (Auto) 7.0 % Eosinophils (%) (Auto) 3.7 % Basophils (%) (Auto) 0.5 % Neutrophils # (Auto) 7.3 TH/MM3 Lymphocytes # (Auto) 1.7 TH/MM3 Monocytes # (Auto) 0.7 TH/MM3 Eosinophils # (Auto) 0.4 TH/MM3 Basophils # (Auto) 0.1 TH/MM3 CBC Comment AUTO DIFF Differential Comment AUTO DIFF CONFIRMED Platelet Estimate NORMAL Platelet Morphology Comment NORMAL Laboratory Tests Test 07/28/16 07/29/16 07:50 08:48 Sodium Level 132 MEQ/L 134 MEQ/L Potassium Level 4.0 MEQ/L 4.0 MEQ/L Chloride Level 99 MEQ/L 101 MEQ/L Carbon Dioxide Level 26.6 MEQ/L 24.1 MEQ/L Anion Gap 6 MEQ/L 9 MEQ/L Blood Urea Nitrogen 26 MG/DL 25 MG/DL Creatinine 1.46 MG/DL 1.36 MG/DL Estimat Glomerular Filtration 50 ML/MIN 54 ML/MIN Rate Random Glucose 234 MG/DL 167 MG/DL Calcium Level 8.0 MG/DL 7.8 MG/DL Microbiology Date/Time Procedure Status Source Growth 07/26/16 18:15 Gram Stain - Final Complete Wound Foot 07/26/16 18:15 Wound Culture - Final Complete Pseudomonas Aeruginosa S. Aureus Mrsa Escherichia Coli 07/28/16 07:50 Aerobic Blood Culture - Preliminary Resulted Blood Peripheral NO GROWTH IN 1 DAY 07/28/16 07:50 Anaerobic Blood Culture - Preliminary Resulted Blood Peripheral NO GROWTH IN 1 DAY 07/28/16 07:50 Aerobic Blood Culture - Preliminary Resulted Blood Peripheral NO GROWTH IN 1 DAY 07/28/16 07:50 Anaerobic Blood Culture - Preliminary Resulted Blood Peripheral NO GROWTH IN 1 DAY Microbiology Date/Time Procedure Status Source Growth 07/25/16 15:15 Aerobic Blood Culture - Preliminary Resulted Blood Peripheral NO GROWTH IN 3 DAYS 07/25/16 15:15 Anaerobic Blood Culture - Preliminary Resulted Blood Peripheral NO GROWTH IN 3 DAYS 07/25/16 15:30 Aerobic Blood Culture - Preliminary Resulted Blood Peripheral NO GROWTH IN 3 DAYS 07/25/16 15:30 Anaerobic Blood Culture - Final Resulted S. Aureus Mrsa 07/26/16 18:15 Gram Stain - Final Resulted Wound Foot 07/26/16 18:15 Wound Culture - Preliminary Resulted Pseudomonas Species S. Aureus Mrsa Gram Negative Rafael 07/28/16 07:50 Aerobic Blood Culture Received Blood Peripheral Pending 07/28/16 07:50 Anaerobic Blood Culture Received Blood Peripheral Pending 07/28/16 07:50 Aerobic Blood Culture Received Blood Peripheral Pending 07/28/16 07:50 Anaerobic Blood Culture Received Blood Peripheral Pending Imaging: Consultation 07/28/16 1037 Signed Impressions: Service Date/Time: Thursday, July 28, 2016 10:37 - CONCLUSION: Evaluation of the recent CT of the facial bones with contrast dated 07/23/16 shows no definite drainable abscess. No more recent studies are available for review. Nixon Garcia MD Maxillofacial CT 07/28/16 0000 Signed Impressions: Service Date/Time: Thursday, July 28, 2016 16:25 - CONCLUSION: 1. Increasing cellulitis,parotitis and myositis involving the left masseter muscle without evidence of abscess. Jose Manuel Naranjo MD PHYSICAL EXAMINATION GENERAL: No acute distress. HEAD, EYES, EARS, NOSE, AND THROAT: Area of swelling is same as yesterday with erythema at the left face encompassing the area in front of the left ear and wrapping around the left side of the face and to the submandibular region. This is slightly less tender to palpation. The extraocular movements are grossly intact, pupils reactive to light. No icterus. Oral mucosa - moist. NECK: Supple without adenopathy. LUNGS: Clear breath sounds HEART: Regular rate and rhythm without murmurs, rubs or gallops. ABDOMEN: Bowel sounds present, soft. EXTREMITIES: No clubbing or cyanosis or edema. The right foot has deformity from prior surgery and Charcot's joint disease. There is absent fifth toe and there is a shallow ulceration at the lateral aspect of the right great toe which has no significant drainage. Pulses 2+. NEUROLOGIC: Nonfocal. PSYCHIATRIC: Calm and irritable. IMPRESSION 1. Facial cellulitis. Still Severe with parotitis and left masseter myositis and subcutaneous edema. 2. Bacteremia due to MRSA likely resulting from facial infection. 3. Chronic right foot ulceration with infection. MRSA/Pseudomonas/E.coli on current culture. 4. Acute kidney disease on chronic kidney disease. RECOMMENDATIONS 1. Continue vancomycin . Pharmacy dosing. 2. Add Clindamycin IV. 3. Continue Cefepime for pseudomonas and e. coli. 4. Will order a PICC line. 5. No ready for discharge until improvement and blood cultures remain negative. Patient notified that no definitive day of discharge can be given. 6. Warm compresses to the left face and patient notified not to shave the left face over the wound. 7. Monitor the patient's response to antibiotic treatment. Gabino Wilhelm MD Jul 29, 2016 16:17
[2016-07-29] MEDS: CLINDAMYCIN INJ 900 MG in SODIUM CHLORIDE 0.9% INJ 100 ML IV SCH ×2 (18:41→23:57)
[2016-07-29 20:00] VITALS: BP 129/68; PULSE 87; RESP 18; TEMP 97.8; O2SAT 97
[2016-07-29] MEDS: TAMSULOSIN HCL 0.4 MG CAP PO SCH (21:24)
[2016-07-29 23:57] VITALS: BP 151/86; PULSE 84; RESP 18; TEMP 97.7; O2SAT 97
[2016-07-30] MEDS: HEPARIN SODIUM - SQ 10,000 UNITS/ML VIAL SQ SCH ×3 (00:52→22:00)
[2016-07-30] MEDS: HYDROmorphone HCL PF 2 MG/ML VIAL IV PRN ×4 (01:00→22:37)
[2016-07-30] MEDS: SODIUM CHLORIDE 0.9% FLUSH 5 ML FLUSH FLUSH PRN (01:04)
[2016-07-30] MEDS: INSULIN NovoLIN REGULAR SUPPLEMENTAL SCALE SQ SCH ×4 (05:42→21:56)
[2016-07-30] MEDS: SODIUM CHLOR 0.9% 1000 ML INJ 1,000 ML IV SCH ×2 (06:09→23:30)
[2016-07-30 06:17] VITALS: BP 131/71; PULSE 75; RESP 17; TEMP 97.3; O2SAT 97
[2016-07-30] MEDS: CLINDAMYCIN INJ 900 MG in SODIUM CHLORIDE 0.9% INJ 100 ML IV SCH ×3 (08:17→23:55)
[2016-07-30] MEDS: INSULIN HUMAN NPH 1,000 UNITS/10 ML VIAL SQ SCH ×2 (08:20→18:27)
--- NOTE | 2016-07-30 08:28 | HHI.FPPN ---
Subjective Remarks No acute events overnight. Vital signs have remained stable. Pt to receive PICC line today. Per ID, there is no definite time-table for discharge; however , per patient he believes he is being discharged today. He continues to endorse left foot pain that is only relieved by "Dilaudid." He states his facial swelling is "75% improved." He denies any chest pain, shortness of breath, fevers, chills, or calf pain. (Cuate Bajwa MD R3) Objective Vitals Vital Signs Date Time Temp Pulse Resp B/P Pulse Ox O2 Delivery O2 Flow Rate FiO2 07/30/16 06:17 97.3 75 17 131/71 97 07/29/16 23:57 97.7 84 18 151/86 97 07/29/16 20:00 97.8 87 18 129/68 97 07/29/16 12:00 97.7 106 16 143/84 96 07/29/16 09:00 97.6 82 16 167/97 97 I/O 07/29/16 07/29/16 07/29/16 07/30/16 07/30/16 07/30/16 07:00 15:00 23:00 07:00 15:00 23:00 Intake Total 2160 ml 720 ml 1305 ml Output Total 1600 ml Balance 2160 ml 720 ml -295 ml Intake Oral 720 ml IV Total 2160 ml 1305 ml Output Urine Total 1600 ml # Voids 3 # Bowel Movements 1 (Cuate Bajwa MD R3) Result Diagram: 07/29/16 0848 07/29/16 0848 Objective Remarks GEN: normally nourished, in NAD. EYES: conjunctiva normal, PERRLA, EOMI. ENT: Mouth and pharynx normal. ~6X6 cm area of erythema and firm STS over the region of the left parotid gland, unchanged from previous exam. Improved from prior. NECK: thyroid midline, carotids symmetrical. LUNGS: clear A-P, respiratory effort is normal. CARDIOVASCULAR: RR without murmur or gallop. No significant edema. NEURO: No focal deficits. SKIN: color normal other than area of cellulitis left face. PSYCH/MENTAL STATUS: Alert and oriented x 3. (Cuate Bajwa MD R3) A/P Assessment and Plan 56-year-old male with a past medical history significant for diabetes who is currently being treated for osteomyelitis with ciprofloxacin by infectious disease, now developed a large cellulitis to the left jaw. Admitted for this cellulitis infection, found to be bacteremic with MRSA. Discharge Planning Pending improvement in clinical course (Cuate Bajwa MD R3) Attending Attestation Case reviewed and discussed with the resident team. Agree with plan of care as discussed with me and documented in the resident note. (Vince Cook MD) Problem List: (1) Facial cellulitis Status: Acute Plan: Area of cellulitis stable with IV antibiotics * Admitted to inpatient * Infectious disease following, Dr. Wilhelm * Continue vancomycin and Cefepime, * Clindamycin has now been added * Recent CT showed cellulitis no abscess * No abscess for drainage at this time Pain control * [place] 5/325 every 4 hours when necessary pain 3-5 * [place] 10/325 every 4 hours when necessary pain 610 * Dilaudid 2 mg IV every 3 hours when necessary breakthrough pain (2) Bacteremia Status: Acute Plan: Cultures growing MRSA Staphylococcus aureus. Currently not septic as he is afebrile, blood pressure is appropriate, normal cardiac rate * See cellulitis plan above (3) Osteomyelitis of foot Status: Chronic Plan: Chronic osteomyelitis of the foot. Being followed by ID. * IV vancomycin + Clindamycin per ID recommendation * Wound care consult placed (4) DM (diabetes mellitus) Status: Chronic Plan: Long-standing history of poorly controlled diabetes. * Placed on NPH 25 AM, 35 at bedtime * Novolin sliding scale * Monitor blood glucose per protocol (5) Qaiil-mk-orrasio kidney injury Status: Acute Plan: Improving. He is having acute on chronic kidney disease at this time. Believed to be due to dehydration from multiple episodes of nausea and vomiting , on top of chronic kidney injury due to poorly controlled diabetes. IOn admission BUN/creatinine was 45/2.06. Most recent BUN/creatinine is 25/1.36, improving, today's labs have not been obtained as of note * Renally dosing vancomycin at this time * Avoid kidney injuring medications (6) Nutrition, metabolism, and development symptoms Status: Acute Plan: Diabetic diet Monitor electrolytes and replace accordingly Vitals every 4 SCDs for DVT prophylaxis Out of bed ad casey. CODE STATUS: Full code Disposition: To be determined later date with improvement of clinical findings (Cuate Bajwa MD R3) Problem Qualifiers (1) Osteomyelitis of foot: Qualified Code: M86.9 - Osteomyelitis of right foot, unspecified type (2) DM (diabetes mellitus): Qualified Code: E11.621 - Type 2 diabetes mellitus with foot ulcer, with long- term current use of insulin Cuate Bajwa MD R3 Jul 30, 2016 08:28 Vince Cook MD Jul 31, 2016 08:15
[2016-07-30 08:37] LABS: HEMATOCRIT 21.8 % (39.0-51.0); MEAN CELL VOLUME 80.4 FL (80.0-100.0); MEAN CORPUSCULAR HEMOGLOBIN 27.5 PG (27.0-34.0); MEAN CORPUSCULAR HGB CONC 34.2 % (32.0-36.0); PLATELET COUNT 371 TH/MM3 (150-450); RED BLOOD COUNT 2.71 MIL/MM3 (4.50-5.90); RED CELL DISTRIBUTION WIDTH 14.9 % (11.6-17.2); REVIEW FLAG FINAL; WHITE BLOOD COUNT 8.8 TH/MM3 (4.0-11.0)
[2016-07-30 08:54] LABS: BICARBONATE 27.8 MEQ/L (21.0-32.0); POTASSIUM 4.4 MEQ/L (3.5-5.1)
[2016-07-30] MEDS: SODIUM CHLORIDE 0.9% FLUSH 5 ML FLUSH FLUSH SCH ×2 (08:59→21:00)
[2016-07-30] MEDS: DOCUSATE SODIUM 50 MG/SENNA 8.6 MG TAB PO SCH ×2 (08:59→21:00)
--- NOTE | 2016-07-30 12:11 | HHI.IDPN ---
Note Infectious Disease Note Patient Notes pain in the face is better. Afebrile. No other complaints. Left face still marked swelling. Blood culture 07/23 and 07/25 has MRSA. Blood culture 07/28 no growth. This is a 56-year-old white male who presented to emergency department on 07/25 with facial pain and swelling. He was taking antibiotics in the form of Augmentin, Bactrim and ciprofloxacin. PAST MEDICAL HISTORY 1. Poorly controlled insulin diabetes type 2 2. chronic osteomyelitis l foot, 3. Hypertension 4. Charcot feet. 5. History of fifth ray amputation. 6. Chronic right foot ulceration. ALLERGIES CODEINE ANTIBIOTICS: Vancomycin. Cefepime. Clindamycin. OBJECTIVE: Vital Signs Date Time Temp Pulse Resp B/P Pulse Ox O2 Delivery O2 Flow Rate FiO2 07/30/16 06:17 97.3 75 17 131/71 97 07/29/16 23:57 97.7 84 18 151/86 97 07/29/16 20:00 97.8 87 18 129/68 97 07/29/16 07/29/16 07/30/16 15:00 23:00 07:00 Intake Total 720 ml 1305 ml Output Total 1600 ml Balance 720 ml -295 ml Intake Oral 720 ml IV Total 1305 ml Output Urine Total 1600 ml # Voids 3 # Bowel Movements 1 Laboratory Tests Test 07/29/16 07/30/16 08:48 07:07 White Blood Count 10.0 TH/MM3 8.8 TH/MM3 Red Blood Count 3.23 MIL/MM3 2.71 MIL/MM3 Hemoglobin 8.9 GM/DL 7.4 GM/DL Hematocrit 26.1 % 21.8 % Mean Corpuscular Volume 81.1 FL 80.4 FL Mean Corpuscular Hemoglobin 27.5 PG 27.5 PG Mean Corpuscular Hemoglobin 33.9 % 34.2 % Concent Red Cell Distribution Width 15.4 % 14.9 % Platelet Count 394 TH/MM3 371 TH/MM3 Mean Platelet Volume 7.0 FL 7.0 FL Neutrophils (%) (Auto) 72.3 % Lymphocytes (%) (Auto) 16.5 % Monocytes (%) (Auto) 7.0 % Eosinophils (%) (Auto) 3.7 % Basophils (%) (Auto) 0.5 % Neutrophils # (Auto) 7.3 TH/MM3 Lymphocytes # (Auto) 1.7 TH/MM3 Monocytes # (Auto) 0.7 TH/MM3 Eosinophils # (Auto) 0.4 TH/MM3 Basophils # (Auto) 0.1 TH/MM3 CBC Comment AUTO DIFF Differential Comment AUTO DIFF CONFIRMED Platelet Estimate NORMAL Platelet Morphology Comment NORMAL Laboratory Tests Test 07/29/16 07/30/16 08:48 07:07 Sodium Level 134 MEQ/L 136 MEQ/L Potassium Level 4.0 MEQ/L 4.4 MEQ/L Chloride Level 101 MEQ/L 102 MEQ/L Carbon Dioxide Level 24.1 MEQ/L 27.8 MEQ/L Anion Gap 9 MEQ/L 6 MEQ/L Blood Urea Nitrogen 25 MG/DL 27 MG/DL Creatinine 1.36 MG/DL 1.51 MG/DL Estimat Glomerular Filtration 54 ML/MIN 48 ML/MIN Rate Random Glucose 167 MG/DL 99 MG/DL Calcium Level 7.8 MG/DL 7.7 MG/DL Microbiology Date/Time Procedure Status Source Growth 07/28/16 07:50 Aerobic Blood Culture - Preliminary Resulted Blood Peripheral NO GROWTH IN 2 DAYS 07/28/16 07:50 Anaerobic Blood Culture - Preliminary Resulted Blood Peripheral NO GROWTH IN 2 DAYS 07/28/16 07:50 Aerobic Blood Culture - Preliminary Resulted Blood Peripheral NO GROWTH IN 2 DAYS 07/28/16 07:50 Anaerobic Blood Culture - Preliminary Resulted Blood Peripheral NO GROWTH IN 2 DAYS Microbiology Date/Time Procedure Status Source Growth 07/25/16 15:15 Aerobic Blood Culture - Preliminary Resulted Blood Peripheral NO GROWTH IN 3 DAYS 07/25/16 15:15 Anaerobic Blood Culture - Preliminary Resulted Blood Peripheral NO GROWTH IN 3 DAYS 07/25/16 15:30 Aerobic Blood Culture - Preliminary Resulted Blood Peripheral NO GROWTH IN 3 DAYS 07/25/16 15:30 Anaerobic Blood Culture - Final Resulted S. Aureus Mrsa 07/26/16 18:15 Gram Stain - Final Resulted Wound Foot 07/26/16 18:15 Wound Culture - Preliminary Resulted Pseudomonas Species S. Aureus Mrsa Gram Negative Rafael 07/28/16 07:50 Aerobic Blood Culture Received Blood Peripheral Pending 07/28/16 07:50 Anaerobic Blood Culture Received Blood Peripheral Pending 07/28/16 07:50 Aerobic Blood Culture Received Blood Peripheral Pending 07/28/16 07:50 Anaerobic Blood Culture Received Blood Peripheral Pending PHYSICAL EXAMINATION GENERAL: No acute distress. HEENT: Area of swelling is same but slightly less erythema at the left face encompassing the area in front of the left ear and wrapping around the left cheek to the submandibular region. Less tender to palpation. The extraocular movements are grossly intact, pupils reactive to light. No icterus. Oral mucosa - moist. NECK: Supple without adenopathy. LUNGS: Clear breath sounds HEART: Regular rate and rhythm without murmurs, rubs or gallops. ABDOMEN: Bowel sounds present, soft, no tenderness appreciated. EXTREMITIES: No clubbing or cyanosis or edema. The right foot has deformity from prior surgery and Charcot's joint disease. There is absent fifth toe and there is a shallow ulceration at the lateral aspect of the right great toe which has no significant drainage. There is another ulceration at the plantar aspect of the foot, where there is angulation from the Charcot's. this is around the region of the mid aspect of the foot. The right foot has no erythema. pulses 2+. NEUROLOGIC: Nonfocal. PSYCHIATRIC: Calm and irritable. IMPRESSION 1. Facial cellulitis, myositis. 2. Bacteremia due to MRSA likely resulting from facial infection. 3. Chronic right foot ulceration. MRSA/Pseudomonas on current culture. 4. Acute kidney disease on chronic kidney disease. RECOMMENDATIONS 1. Continue vancomycin IV . Will make disposition for outpatient tomorrow. 2. Continue Cefepime for pseudomonas. 3. Continue Clindamycin. 4. Follow repeat blood cultures. 5. PIC line ordered. 6. Patient needs to follow up with an ID specialist after discharge. 7. The kidney function will need to be followed while on Vancomycin. I anticipate 3 more weeks of IV antibiotics. Gabino Wilhelm MD Jul 30, 2016 12:11
[2016-07-30 12:30] VITALS: BP 144/80; PULSE 79; RESP 16; TEMP 97.3; O2SAT 99
[2016-07-30] MEDS: ACETAMINOPHEN/HYDROcodone 325 MG/10 MG TAB PO PRN ×3 (13:13→21:35)
--- NOTE | 2016-07-30 14:53 | RADRPT ---
EXAM DATE/TIME: 07/30/2016 14:23 [facility] COMPARISON: CHEST SINGLE AP, September 25, 2015, 14:34. INDICATIONS : PICC Line placement. MEDICAL HISTORY : Hypertension. Cardiovascular disease diabetes SURGICAL HISTORY : Appendectomy. ENCOUNTER: Initial ACUITY: 3 days PAIN SCORE: 0/10 LOCATION: Bilateral chest FINDINGS: PICC line is in good position. The lungs are under aerated. The heart and pulmonary vascularity are normal. The portion of the bony skeleton visualized is unremarkable. CONCLUSION: PICC line in good position. Underated otherwise negative. Hugh Harris MD FACR on July 30, 2016 at 14:50 Board Certified Radiologist. This report was verified electronically.
[2016-07-30] MEDS ORDERED: CEFEPIME INJ 1,000 MG in SODIUM CHLORIDE 0.9% INJ 100 ML IV SCH (15:00)
[2016-07-30] MEDS: CEFEPIME INJ 1,000 MG in SODIUM CHLORIDE 0.9% INJ 100 ML IV SCH (15:48)
[2016-07-30] MEDS: VANCOMYCIN INJ 1,700 MG in SODIUM CHLORID 0.9% 500 ML INJ 500 ML IV SCH (17:32)
[2016-07-30] MEDS ORDERED: VANCOMYCIN INJ 1,700 MG in SODIUM CHLORID 0.9% 500 ML INJ 500 ML IV SCH (18:00)
[2016-07-30 20:00] VITALS: BP 151/80; PULSE 79; RESP 18; TEMP 97.7; O2SAT 98
[2016-07-30] MEDS: TAMSULOSIN HCL 0.4 MG CAP PO SCH (21:00)
[2016-07-31] MEDS: ONDANSETRON HCL 4 MG/2 ML VIAL IVP PRN (03:59)
[2016-07-31] MEDS: HEPARIN SODIUM - SQ 10,000 UNITS/ML VIAL SQ SCH ×2 (06:00→14:00)
[2016-07-31] MEDS: ACETAMINOPHEN/HYDROcodone 325 MG/10 MG TAB PO PRN ×2 (06:36→12:14)
[2016-07-31] MEDS: INSULIN NovoLIN REGULAR SUPPLEMENTAL SCALE SQ SCH ×2 (06:44→11:00)
[2016-07-31 07:15] LABS: AUTOMATED NEUTROPHIL # 5.1 TH/MM3 (1.8-7.7); BASOPHIL % 0.6 % (0.0-2.0); EOSINOPHIL # 0.4 TH/MM3 (0-0.4); EOSINOPHIL % 4.7 % (0.0-4.0); HEMATOCRIT 21.1 % (39.0-51.0); LYMPH % 18.9 % (9.0-44.0); LYMPHOCYTE # 1.4 TH/MM3 (1.0-4.8); MEAN CELL VOLUME 80.3 FL (80.0-100.0); MEAN CORPUSCULAR HEMOGLOBIN 27.7 PG (27.0-34.0); MEAN CORPUSCULAR HGB CONC 34.5 % (32.0-36.0); MONO % 8.5 % (0.0-8.0); NEUT % 67.3 % (16.0-70.0); PLATELET COUNT 357 TH/MM3 (150-450); RED BLOOD COUNT 2.62 MIL/MM3 (4.50-5.90); WHITE BLOOD COUNT 7.6 TH/MM3 (4.0-11.0)
[2016-07-31 07:18] LABS: HEMO FLAGS AUTO DIFF
[2016-07-31 07:45] LABS: BICARBONATE 27.9 MEQ/L (21.0-32.0); POTASSIUM 4.5 MEQ/L (3.5-5.1)
[2016-07-31 07:51] LABS: PLATELET MORPHOLOGY NORMAL (NORMAL); SCAN/DIFF AUTO DIFF CONFIRMED
[2016-07-31 07:52] LABS: PLATELET ESTIMATE SMEAR HIGH (NORMAL)
[2016-07-31] MEDS: INSULIN HUMAN NPH 1,000 UNITS/10 ML VIAL SQ SCH (08:00)
[2016-07-31] MEDS: DOCUSATE SODIUM 50 MG/SENNA 8.6 MG TAB PO SCH (09:00)
[2016-07-31] MEDS: CLINDAMYCIN INJ 900 MG in SODIUM CHLORIDE 0.9% INJ 100 ML IV SCH (09:31)
[2016-07-31] MEDS: HYDROmorphone HCL PF 2 MG/ML VIAL IV PRN (09:32)
[2016-07-31] MEDS: SODIUM CHLOR 0.9% 1000 ML INJ 1,000 ML IV SCH (09:33)
[2016-07-31] MEDS: SODIUM CHLORIDE 0.9% FLUSH 5 ML FLUSH FLUSH SCH (09:33)
--- NOTE | 2016-07-31 09:41 | HHI.FPPN ---
Subjective Remarks Patient seen and examined this morning. Overnight he reports having one episode of nausea and vomiting. He says that the PICC line was placed yesterday without difficulty. He was informed that the discharge is possible for today pending Infectious Disease. He says that he is getting his antibiotic, though per nurse overnight he refused his antibiotics. He feels that the swelling of the cellulitis has improved. Explained that the plan is to continue 3-4 weeks of outpatient IV antibiotics adjusted by his ID doctor. Endorses: Nausea, vomiting, left jaw pain Denies: CP, SOB, Headache, abdominal pain, calf pain or swelling (Hubert Courtney MD R2) Objective Vitals Vital Signs Date Time Temp Pulse Resp B/P Pulse Ox O2 Delivery O2 Flow Rate FiO2 07/30/16 20:00 97.7 79 18 151/80 98 07/30/16 12:30 97.3 79 16 144/80 99 I/O 07/30/16 07/30/16 07/30/16 07/31/16 07/31/16 07/31/16 07:00 15:00 23:00 07:00 15:00 23:00 Intake Total 1305 ml 480 ml Output Total 1600 ml 950 ml Balance -295 ml 480 ml -950 ml Intake Oral 480 ml IV Total 1305 ml Output Urine Total 1600 ml 950 ml # Voids 6 2 # Bowel Movements 2 (Hubert Courtney MD R2) Result Diagram: 07/31/16 0642 07/31/16 0642 Imaging Last Impressions Chest X-Ray 07/30/16 0000 Signed Impressions: Service Date/Time: Saturday, July 30, 2016 14:23 - CONCLUSION: PICC line in good position. Underated otherwise negative. Hugh Harris MD FACR Consultation 07/28/16 1037 Signed Impressions: Service Date/Time: Thursday, July 28, 2016 10:37 - CONCLUSION: Evaluation of the recent CT of the facial bones with contrast dated 07/23/16 shows no definite drainable abscess. No more recent studies are available for review. Nixon Garcia MD Maxillofacial CT 07/28/16 0000 Signed Impressions: Service Date/Time: Thursday, July 28, 2016 16:25 - CONCLUSION: 1. Increasing cellulitis,parotitis and myositis involving the left masseter muscle without evidence of abscess. Jose Manuel Naranjo MD Objective Remarks GEN: normally nourished, in NAD. EYES: conjunctiva normal, PERRLA, EOMI. ENT: Mouth and pharynx normal. ~6X6 cm area of erythema and firm STS over the region of the left parotid gland, unchanged from previous exam. Improved from prior. NECK: thyroid midline, carotids symmetrical. LUNGS: clear A-P, respiratory effort is normal. CARDIOVASCULAR: RR without murmur or gallop. No significant edema. NEURO: No focal deficits. SKIN: color normal other than area of cellulitis left face. PSYCH/MENTAL STATUS: Alert and oriented x 3. Medications and IVs Current Medications Medications (Trade) Dose Ordered Sig/Tri Route Start Time Stop Time Status Last Admin (NS Flush) 2 ml UNSCH PRN FLUSH 07/25/16 14:30 07/30/16 01:04 (NS Flush) 2 ml BID FLUSH 07/25/16 21:00 07/29/16 21:24 (Tylenol) 650 mg Q4H PRN PO 07/25/16 14:30 (Zofran Inj) 4 mg Q6H PRN IVP 07/25/16 14:30 07/31/16 03:59 Naloxone HCl 0.4 mg 0.4 mg UNSCH PRN IV 07/25/16 14:30 (NS 1000 ml Inj) 1,000 ml @ 125 mls/hr Q8H IV 07/25/16 15:30 07/30/16 23:30 ([place] 5-325 Mg) 1 tab Q4H PRN PO 07/25/16 14:30 07/27/16 20:02 ([place] 10-325 Mg) 1 tab Q4H PRN PO 07/25/16 14:30 07/31/16 06:36 (Flomax) 0.4 mg HS PO 07/25/16 21:00 07/29/16 21:24 (D50w (Vial) Inj) 25 ml UNSCH PRN IV PUSH 07/26/16 08:30 (Glucagon Inj) 1 mg UNSCH PRN OTHER 07/26/16 08:30 (NovoLIN N INJ) 35 units DAILY@08 SQ 07/26/16 09:00 07/30/16 08:20 Insulin Human NPH 25 units 25 units DAILY@1900 SQ 07/26/16 19:00 07/30/16 18:27 (Vancomycin Consult Pharmacy) 0 ml @ 0 mls/hr UNSCH OTHER 07/26/16 14:15 (Emelia-Colace) 2 tab BID PO 07/27/16 09:45 07/29/16 09:04 (Dulcolax Supp) 10 mg DAILY PRN CO 07/27/16 09:45 (Milk Of Magnesia Liq) 30 ml BID PRN PO 07/27/16 09:45 07/28/16 21:56 (Catapres) 0.1 mg Q6H PRN PO 07/28/16 10:45 (Dilaudid Pf Inj) 2 mg Q3H PRN IV 07/29/16 05:30 07/30/16 22:37 Heparin Sodium (Porcine) 5000 units 5,000 units Q8HR SQ 07/29/16 14:00 Clindamycin Phosphate 900 mg/ Sodium Chloride 106 ml @ 212 mls/hr Q8H IV 07/29/16 17:00 07/30/16 23:55 Cefepime HCl 1000 mg/Sodium Chloride 100 ml @ 200 mls/hr Q24H IV 07/30/16 15:00 (Vancomycin Inj/ NS 500 ml Inj) 517 ml @ 250 mls/hr Q24H IV 07/30/16 18:00 (Hubert Courtney MD R2) A/P Assessment and Plan 56-year-old male with a past medical history significant for diabetes who is currently being treated for osteomyelitis with ciprofloxacin by infectious disease, now developed a large cellulitis to the left jaw. Admitted for this cellulitis infection, found to be bacteremic with MRSA. Discharge Planning Possible discharge home today with Outpatient IV antibiotics (Hubert Courtney MD R2) Attending Attestation Case reviewed and discussed with the resident team. Agree with plan of care as discussed with me and documented in the resident note. (Vince Cook MD) Problem List: (1) Facial cellulitis Status: Acute Plan: Area of cellulitis stable with IV antibiotics * Admitted to inpatient * Infectious disease following, Dr. Wilhelm * Continue vancomycin and Cefepime, * Continue Clindamycin * Recent CT showed cellulitis no abscess * No abscess for drainage at this time Pain control * [place] 5/325 every 4 hours when necessary pain 3-5 * [place] 10/325 every 4 hours when necessary pain 610 * Dilaudid 2 mg IV every 3 hours when necessary breakthrough pain (2) Bacteremia Status: Acute Plan: Cultures growing MRSA Staphylococcus aureus. Currently not septic as he is afebrile, blood pressure is appropriate, normal cardiac rate * See cellulitis plan above (3) Osteomyelitis of foot Status: Chronic Plan: Chronic osteomyelitis of the foot. Being followed by ID. * IV vancomycin + Clindamycin per ID recommendation * Wound care consult placed (4) DM (diabetes mellitus) Status: Chronic Plan: Long-standing history of poorly controlled diabetes. * Placed on NPH 25 AM, 35 at bedtime * Novolin sliding scale * Monitor blood glucose per protocol (5) [id number] kidney injury Status: Acute Plan: Improving. He is having acute on chronic kidney disease at this time. Believed to be due to dehydration from multiple episodes of nausea and vomiting , on top of chronic kidney injury due to poorly controlled diabetes. IOn admission BUN/creatinine was 45/2.06. Most recent BUN/creatinine is 25/1.36, improving, today's labs have not been obtained as of note * Renally dosing vancomycin at this time * Avoid kidney injuring medications (6) Nutrition, metabolism, and development symptoms Status: Acute Plan: Diabetic diet Monitor electrolytes and replace accordingly Vitals every 4 SCDs for DVT prophylaxis Out of bed ad casey. CODE STATUS: Full code Disposition:Possible DC today pending set up for Outpatient IV Antibiotics (Hubert Courtney MD R2) Problem Qualifiers (1) Osteomyelitis of foot: Qualified Code: M86.9 - Osteomyelitis of right foot, unspecified type (2) DM (diabetes mellitus): Qualified Code: E11.621 - Type 2 diabetes mellitus with foot ulcer, with long- term current use of insulin Hubert Courtney MD R2 Jul 31, 2016 09:41 Vince Cook MD Jul 31, 2016 14:09
[2016-07-31] MEDS ORDERED: HYDR-3583 PO (09:52)
[2016-07-31] MEDS ORDERED: ZOFR4SOL PO (09:52)
[2016-07-31] MEDS ORDERED: CEFEPIME 1000 MG/NS 100 ML IV SCH ×2 (12:00)
[2016-07-31] MEDS ORDERED: CLIN1CAP6 PO (14:08)
--- NOTE | 2016-07-31 14:22 | HHI.IDPN ---
Note Infectious Disease Note Patient pain in the face is better. Swelling has decreased significantly. Afebrile. No other complaints. Patient says he wants "out of here". He is irate. " I have to go back to work,". He declines to have IV antibiotic infusion at the infusion clinic. He needs close monitoring of his kidney function every other day while on vancomycin and also vancomycin level. This is a 56-year-old white male who presented to emergency department on 07/25 with facial pain and swelling. He was taking antibiotics in the form of Augmentin, Bactrim and ciprofloxacin. PAST MEDICAL HISTORY 1. Poorly controlled insulin diabetes type 2 2. chronic osteomyelitis l foot, 3. Hypertension 4. Charcot feet. 5. History of fifth ray amputation. 6. Chronic right foot ulceration. ALLERGIES CODEINE ANTIBIOTICS: Vancomycin. Cefepime. Clindamycin. OBJECTIVE: Vital Signs Date Time Temp Pulse Resp B/P Pulse Ox O2 Delivery O2 Flow Rate FiO2 07/30/16 20:00 97.7 79 18 151/80 98 Laboratory Tests Test 07/30/16 07/31/16 07:07 06:42 White Blood Count 8.8 TH/MM3 7.6 TH/MM3 Red Blood Count 2.71 MIL/MM3 2.62 MIL/MM3 Hemoglobin 7.4 GM/DL 7.3 GM/DL Hematocrit 21.8 % 21.1 % Mean Corpuscular Volume 80.4 FL 80.3 FL Mean Corpuscular Hemoglobin 27.5 PG 27.7 PG Mean Corpuscular Hemoglobin 34.2 % 34.5 % Concent Red Cell Distribution Width 14.9 % 15.0 % Platelet Count 371 TH/MM3 357 TH/MM3 Mean Platelet Volume 7.0 FL 6.7 FL Neutrophils (%) (Auto) 67.3 % Lymphocytes (%) (Auto) 18.9 % Monocytes (%) (Auto) 8.5 % Eosinophils (%) (Auto) 4.7 % Basophils (%) (Auto) 0.6 % Neutrophils # (Auto) 5.1 TH/MM3 Lymphocytes # (Auto) 1.4 TH/MM3 Monocytes # (Auto) 0.6 TH/MM3 Eosinophils # (Auto) 0.4 TH/MM3 Basophils # (Auto) 0.0 TH/MM3 CBC Comment AUTO DIFF Differential Comment AUTO DIFF CONFIRMED Platelet Estimate HIGH Platelet Morphology Comment NORMAL Laboratory Tests Test 07/30/16 07/31/16 07:07 06:42 Sodium Level 136 MEQ/L 136 MEQ/L Potassium Level 4.4 MEQ/L 4.5 MEQ/L Chloride Level 102 MEQ/L 102 MEQ/L Carbon Dioxide Level 27.8 MEQ/L 27.9 MEQ/L Anion Gap 6 MEQ/L 6 MEQ/L Blood Urea Nitrogen 27 MG/DL 25 MG/DL Creatinine 1.51 MG/DL 1.34 MG/DL Estimat Glomerular Filtration 48 ML/MIN 55 ML/MIN Rate Random Glucose 99 MG/DL 121 MG/DL Calcium Level 7.7 MG/DL 7.8 MG/DL Microbiology Date/Time Procedure Status Source Growth 07/25/16 15:15 Aerobic Blood Culture - Preliminary Resulted Blood Peripheral NO GROWTH IN 3 DAYS 07/25/16 15:15 Anaerobic Blood Culture - Preliminary Resulted Blood Peripheral NO GROWTH IN 3 DAYS 07/25/16 15:30 Aerobic Blood Culture - Preliminary Resulted Blood Peripheral NO GROWTH IN 3 DAYS 07/25/16 15:30 Anaerobic Blood Culture - Final Resulted S. Aureus Mrsa 07/26/16 18:15 Gram Stain - Final Resulted Wound Foot 07/26/16 18:15 Wound Culture - Preliminary Resulted Pseudomonas Species S. Aureus Mrsa Gram Negative Rafael 07/28/16 07:50 Aerobic Blood Culture Received Blood Peripheral Pending 07/28/16 07:50 Anaerobic Blood Culture Received Blood Peripheral Pending 07/28/16 07:50 Aerobic Blood Culture Received Blood Peripheral Pending 07/28/16 07:50 Anaerobic Blood Culture Received Blood Peripheral Pending PHYSICAL EXAMINATION GENERAL: No acute distress. HEENT: Area of swelling has decreased and erythema is less and also Less tender to palpation. The extraocular movements are grossly intact, pupils reactive to light. No icterus. Oral mucosa - moist. NECK: Supple without adenopathy. LUNGS: Clear breath sounds HEART: Regular rate and rhythm without murmurs, rubs or gallops. ABDOMEN: Bowel sounds present, soft, no tenderness appreciated. EXTREMITIES: No clubbing or cyanosis or edema. The right foot has deformity from prior surgery and Charcot's joint disease. There is an ulceration at the plantar aspect of the foot, where there is angulation from the Charcot's. No erythema. pulses 2+. NEUROLOGIC: Nonfocal. PSYCHIATRIC: Irate and condescending demeanor. IMPRESSION 1. Facial cellulitis, myositis. improving. 2. Bacteremia due to MRSA likely resulting from facial infection. 3. Chronic right foot ulceration. MRSA/Pseudomonas on current culture. 4. Acute kidney disease on chronic kidney disease. RECOMMENDATIONS 1. Stop Vancomycin IV . Patient unwilling to go along with plan for vancomycin administration at the infusion clinic. I planned on giving 7 more days IV Vancomycin because the repeat blood culture is negative with every other day monitoring of the renal function during treatment. I spent 15 minutes explaining to him the need for closely supervised treatment. He insists on doing his own IV administration at home and coming once to the infusion center for blood work. 2. Stop Cefepime. 3. Continue Clindamycin PO 300mg tid x 10 more days. 4. Remove PIC line. 5. Patient told to follow up with an ID specialist. Gabino Wilhelm MD Jul 31, 2016 14:22
--- NOTE | 2016-07-31 14:45 | HHI.DCPOC ---
Discharge Care Plan Diagnosis: (1) Facial cellulitis (2) DM (diabetes mellitus) (3) Osteomyelitis of foot (4) Bacteremia Goals to Promote Your Health * To prevent worsening of your condition and complications * To maintain your health at the optimal level Must establish with an Infectious Disease Doctor Take Antibiotics to completion Directions to Meet Your Goals Take your medications as prescribed Follow your dietary instruction Follow activity as directed Keep your appointments as scheduled Take your immunizations and boosters as scheduled If your symptoms worsen call your PCP, if no PCP go to Urgent Care Center or Emergency Room Smoking is Dangerous to Your Health. Avoid second hand smoke Call the 24-hour hour crisis hotline for domestic abuse at Hubert Courtney MD R2 Jul 31, 2016 14:45
--- NOTE | 2016-07-31 14:59 | HHI.FPPN ---
Addendum to progress note ADDENDUM Reason for addendum: Additonal documentation Additional information Through conversation with infectious disease attending Dr. Wilhelm, patient is unwilling to continue regimen of IV antibiotics. It is explained to him that he would only require 7 days of IV antibiotics as his current blood cultures are growing negative for bacteremia, however he refuses stating he has to go to work and can not be coming into the infusion clinic every day for some IV antibiotics. Patient agrees with doing by mouth clindamycin for 10 days with the understanding that he will obtain an infectious disease specialist as an outpatient OLLIE. Patient agreed with that plan of care. After reviewing patient's medications upon admission with my attending Dr. Cook , we reviewed for his former myelitis. As well as the current wound cultures. Believed the pseudomonas to be likely contaminant, therefore will continue this patient's previously prescribed ciprofloxacin as well as topical gentamicin cream. Patient is in agreement with this plan of care. Patient is to leave the hospital as soon as possible but agrees to await her PICC line to be removed. Hubert Courtney MD R2 Jul 31, 2016 14:59
--- NOTE | 2016-08-01 09:15 | HHI.DS ---
Discharge Summary Admission Date Jul 25, 2016 at 14:43 Discharge Date: Jul 31, 2016 Admitting Diagnosis L facial carbuncle,failure of outpt RX (1) Facial cellulitis Diagnosis: Principal Plan: Area of cellulitis stable with IV antibiotics * Admitted to inpatient * Infectious disease following, Dr. Wilhelm * Continue vancomycin and Cefepime, * Continue Clindamycin * Recent CT showed cellulitis no abscess * No abscess for drainage at this time Pain control * [place] 5/325 every 4 hours when necessary pain 3-5 * [place] 10/325 every 4 hours when necessary pain 610 * Dilaudid 2 mg IV every 3 hours when necessary breakthrough pain (2) Bacteremia Diagnosis: Principal Plan: Cultures growing MRSA Staphylococcus aureus. Currently not septic as he is afebrile, blood pressure is appropriate, normal cardiac rate * See cellulitis plan above (3) Osteomyelitis of foot Diagnosis: Principal Plan: Chronic osteomyelitis of the foot. Being followed by ID. * IV vancomycin + Clindamycin per ID recommendation * Wound care consult placed (4) DM (diabetes mellitus) Diagnosis: Secondary Plan: Long-standing history of poorly controlled diabetes. * Placed on NPH 25 AM, 35 at bedtime * Novolin sliding scale * Monitor blood glucose per protocol (5) [id number] kidney injury Diagnosis: Secondary Plan: Improving. He is having acute on chronic kidney disease at this time. Believed to be due to dehydration from multiple episodes of nausea and vomiting , on top of chronic kidney injury due to poorly controlled diabetes. IOn admission BUN/creatinine was 45/2.06. Most recent BUN/creatinine is 25/1.36, improving, today's labs have not been obtained as of note * Renally dosing vancomycin at this time * Avoid kidney injuring medications (6) Nutrition, metabolism, and development symptoms Diagnosis: Secondary Plan: Diabetic diet Monitor electrolytes and replace accordingly Vitals every 4 SCDs for DVT prophylaxis Out of bed ad casey. CODE STATUS: Full code Disposition:Possible DC today pending set up for Outpatient IV Antibiotics Consultants Infectious Disease Brief History 56-year-old male with a past medical history significant for diabetes who is currently being treated for osteomyelitis with ciprofloxacin by infectious disease. He developed a large erythematous swelling of cellulitis along the left jawline currently 10 x 10 cm. He is developing severe nausea and vomiting. He recently went to the [place] ED on 07/23/16. Blood cultures were done at that time he was found to be staph coagulase positive. He decided to leave the hospital on that day before being admitted. He came to the family medicine clinic on 07/25/16 to be evaluated due to the worsening swelling and erythema, the worsening since nausea vomiting, and the positive blood cultures he was told that it was important that he go to the hospital to be admitted. He was upset with several the staff at the clinic as well as at triage for the ED, however he agreed to stay and be admitted to get IV antibiotics. He is unwilling to have much of a conversation during my evaluation and more information was not able to be obtained. Further history per chart review: Patient was previously treated for his osteomyelitis with Cubicin and rifampin 13 weeks via PICC line. PICC line has subsequently been removed. He is also followed by podiatry who took a recent wound culture and stated that his foot was growing "a new bacteria." Attempts to get records have failed. He is being seen by infectious disease who started him on oral ciprofloxacin. The patient states that the previous antibiotics were giving him abscesses for which ID prescribed clindamycin ointment. The patient was recently seen by his timekeeper and told that he needed to have his abscess on his jawline drained. CBC/BMP: 07/31/16 0642 07/31/16 0642 Significant Findings Laboratory Tests Test 07/29/16 07/30/16 07/31/16 12:25 07:07 06:42 Vancomycin Level Trough 11.9 MCG/ML (5.0-10.0) Red Blood Count 2.71 MIL/MM3 2.62 MIL/MM3 (4.50-5.90) (4.50-5.90) Hemoglobin 7.4 GM/DL 7.3 GM/DL (13.0-17.0) (13.0-17.0) Hematocrit 21.8 % 21.1 % (39.0-51.0) (39.0-51.0) Blood Urea Nitrogen 27 MG/DL (7-18) 25 MG/DL (7-18) Creatinine 1.51 MG/DL 1.34 MG/DL (0.60-1.30) (0.60-1.30) Estimat Glomerular Filtration 48 ML/MIN (>89) 55 ML/MIN (>89) Rate Calcium Level 7.7 MG/DL 7.8 MG/DL (8.5-10.1) (8.5-10.1) Mean Platelet Volume 6.7 FL (7.0-11.0) Monocytes (%) (Auto) 8.5 % (0.0-8.0) Eosinophils (%) (Auto) 4.7 % (0.0-4.0) Platelet Estimate HIGH (NORMAL) Random Glucose 121 MG/DL (74-106) Imaging Last Impressions Chest X-Ray 07/30/16 0000 Signed Impressions: Service Date/Time: Saturday, July 30, 2016 14:23 - CONCLUSION: PICC line in good position. Underated otherwise negative. Hugh Harris MD FACR Consultation 07/28/16 1037 Signed Impressions: Service Date/Time: Thursday, July 28, 2016 10:37 - CONCLUSION: Evaluation of the recent CT of the facial bones with contrast dated 07/23/16 shows no definite drainable abscess. No more recent studies are available for review. Nixon Garcia MD Maxillofacial CT 07/28/16 0000 Signed Impressions: Service Date/Time: Thursday, July 28, 2016 16:25 - CONCLUSION: 1. Increasing cellulitis,parotitis and myositis involving the left masseter muscle without evidence of abscess. Jose Manuel Naranjo MD PE at Discharge GEN: normally nourished, in NAD. EYES: conjunctiva normal, PERRLA, EOMI. ENT: Mouth and pharynx normal. ~6X6 cm area of erythema and firm STS over the region of the left parotid gland, unchanged from previous exam. Improved from prior. NECK: thyroid midline, carotids symmetrical. LUNGS: clear A-P, respiratory effort is normal. CARDIOVASCULAR: RR without murmur or gallop. No significant edema. NEURO: No focal deficits. SKIN: color normal other than area of cellulitis left face. PSYCH/MENTAL STATUS: Alert and oriented x 3. Hospital Course 56 y/o male with history of diabetes and osteomyelitis presents with facial swelling. Was seen in clinic and it was suggested to go to the ED for further evaluation. He was found to have bacteremia in ED. Infectious disease was consulted and pt was started on Vancomycin and Cefepime. Clindamycin was later added. CT of the head was negative for abscess to drain. Wound culture grew MRSA , pseudomonas and E coli. Initial blood cultures were positive for staph, repeat blood cultures were negative. Infectious disease recommended 3 more weeks of outpatient IV antibiotics, however patient refused. Patient was switched to PO Clindamycin and discharged with follow-up with infectious disease. Pt Condition on Discharge: Stable Discharge Disposition: Discharge Home Discharge Instructions DIET: Follow Instructions for: Diabetic Diet Activities you can perform: Weight Bearing as Marilyn Follow up Referrals: Infectious Disease - 1 Week PCP Follow-up - 1 Week with Cuate Bajwa MD R3 Podiatry - 1 Week New Medications: Clindamycin (Clindamycin) 300 Mg Cap 300 MG PO TID Infection #30 Ref 0 CAP Ondansetron Liq (Zofran Liq) 4 Mg/5 Ml Soln 4 MG PO Q6H PRN NAUSEA OR VOMITING Days 10 Ref 50 ML Hydrocodone-Acetaminophen (Hydrocodone-Acetaminophen) 10-325 mg Tab 1 TAB PO Q4H PRN PAIN SCALE 6 TO 10 #25 TAB Continued Medications: Amoxicillin-Clavulanate (Augmentin) 875-125 mg Tab 875 MG PO BID not for use in CrCl <30 ml/min. Infection #20 Ref 0 TAB Ciprofloxacin (Ciprofloxacin) 750 Mg Tab 750 MG PO BID Infection Ref 0 TAB Clindamycin Topical (Clindamycin Topical) 1% Gel 1 APPLIC TOPICAL 5 TIMES A DAY #30 Ref 0 GM Gentamicin Topical (Gentamicin Topical) 0.1% Cream 1 APPLIC TOPICAL BID Apply to affected groin and toe. Infection #15 Ref 0 GM Insulin Human NPH Inj (Novolin N Inj) 1,000 Unit/10 Ml Vial 35 UNITS SQ DAILY IN THE MORNING Blood Sugar Management #10 Ref 0 ML Insulin Human NPH Inj (Novolin N Inj) 1,000 Unit/10 Ml Vial 25 UNITS SQ DAILY IN THE EVENING Blood Sugar Management #10 Ref 0 ML Insulin Human Regular Inj (Novolin R Inj) 1,000 Unit/10 Ml Vial 0 SQ DIRECTED Sliding Scale As Directed. Blood Sugar Management #10 Ref 0 ML Tadalafil (Cialis) 5 Mg Tab 5 MG PO DAILY Do not exceed 1 dose/day. #30 Ref 0 TAB Tamsulosin (Flomax) 0.4 Mg Cap 0.4 MG PO HS Manage Prostate Problems #30 Ref 0 CAP Discontinued Medications: Oxycodone-Acetaminophen (Percocet) 10-325 mg Tab 1 TAB PO Q6H PRN PAIN #15 Ref 0 TAB Sulfamethoxazole-Trimethoprim (Bactrim DS) 800-160 Mg Tab 1 TAB PO BID Infection #20 Ref 0 TAB Solo Naranjo MD R1 Aug 01, 2016 09:15
[2016-11-25] MEDS ORDERED: ANTI1CRE6 TOPICAL (11:06)
[2016-11-25] MEDS ORDERED: MERO1INJ8 IV (11:06)
[2016-11-25] MEDS ORDERED: NOVOINJ6 SQ ×2 (11:06)
[2016-11-25] MEDS ORDERED: HUMUINJ5 SQ (11:06)
== END 2016-07-31 15:28 | disposition home or self-care (01) | DRG 603 ==
LOC: NEPD 12:08 → NEDA 14:43 → HOCA 16:50 → UNDODISIN 17:58
PROVIDERS: ADMIT Family Medicine; ATTEND Family Medicine
PROC: 02HV33Z Insertion of Infusion Device into Superior Vena Cava, Percutaneous Approach (ICD-10-PCS; principal; 2016-07-25)
DX: L03.211 Cellulitis of face (principal); N17.9 Acute kidney failure, unspecified; A52.16 Charcot's arthropathy (tabetic); E11.22 Type 2 diabetes mellitus with diabetic chronic kidney disease; E86.0 Dehydration; M86.679 Other chronic osteomyelitis, unspecified ankle and foot; E11.621 Type 2 diabetes mellitus with foot ulcer; E11.65 Type 2 diabetes mellitus with hyperglycemia; B95.62 Methicillin resistant Staphylococcus aureus infection as the cause of diseases classified elsewhere; N18.9 Chronic kidney disease, unspecified; I12.9 Hypertensive chronic kidney disease with stage 1 through stage 4 chronic kidney disease, or unspecified chronic kidney disease; E11.69 Type 2 diabetes mellitus with other specified complication; L97.519 Non-pressure chronic ulcer of other part of right foot with unspecified severity; M60.9 Myositis, unspecified; K11.20 Sialoadenitis, unspecified
CPT/HCPCS: 36569; 70487; 71010; 76937; 80048; 80053; 80202; 82948; 85025; 85027; 85610; 85652; 85730; 86140; 86403; 87040; 87070; 87077; 87147; 87186; 87205; 96361; 96365; 96375; 96376; 99284; J0295; J0692; J1100; J1170; J1815; J2405; J3370; J7030; J7040; Q9967

== ENCOUNTER 2016-09-09 13:11 | Day surgery (SDC) | payer MEDICARE, MEDICAID ==
[~2016-09-09 13:11] MED LIST changes: -BACT800T5 PO; +CLIN1CAP6 PO; +HYDR-3583 PO; -PERC10TA27 PO; +ZOFR4SOL PO
[2016-09-09 13:41] VITALS: BP 189/87; PULSE 77; RESP 20; TEMP 98; O2SAT 97
[2016-09-09] MEDS ORDERED: NOVONP2 SQ (13:59)
[2016-09-09] MEDS ORDERED: CEFEPIME 2000 MG/NS 100 ML IV ONE ×2 (14:00)
--- NOTE | 2016-09-09 14:52 | PD.RAD ---
Radiology Post PICC Prog Note Pre Procedure Diagnosis: (1) Encounter for assessment of peripherally inserted central venous catheter ( PICC) Post Procedure Diagnosis: (1) Encounter for assessment of peripherally inserted central venous catheter ( PICC) Procedure: Right PICC line placement Procedure Date: Sep 09, 2016 Supervising Radiologist Camden Harris Device Citizen Of [place]: 4 single lumen cm: 41 Plan of Activity Patient to Unit: ROPU Patient Condition: Good PICC line can be used immediately Camden Harris MD Sep 09, 2016 14:52
[2016-09-09] MEDS ORDERED: SODIUM CHLORIDE 0.9% FLUSH 10 ML FLUSH IVF PRN ×2 (15:00)
--- NOTE | 2016-09-09 15:44 | RADRPT ---
EXAM DATE/TIME: 09/09/2016 13:20 [facility] COMPARISON: PICC LINE REPLACEMENT, POWER PICC, June 12, 2016, 10:17. INDICATIONS : Patient with a history of cellulitis of right toe. MEDICAL HISTORY : Diabetes Osteomyelitis HTN SURGICAL HISTORY : Bilateral 5th ray amputations ENCOUNTER: Subsequent ACUITY: 2 months PAIN SCORE: 6/10 Right foot FLUORO TIME: 0.2 minutes IMAGE SERIES: 0 ACCESS: Right basilic vein DEVICE(S): 1.) 4 Kiswahili single lumen 41 cm Power PICC PROCEDURE : 1. Ultrasound guidance for venous catheterization. 2. Fluoroscopic guidance. 3. Ultrasound & fluoroscopic guided central venous Power PICC line placement. The risks, benefits and alternatives to the procedure were explained and verbal and written consent w as obtained. The site was prepped in sterile fashion. Full sterile technique was used, including ca p, mask, sterile gloves and gown and a large sterile sheet. Hand hygiene and 2% chlorhexidine prep w as utilized per protocol for cutaneous antisepsis with appropriate dry time for site. The skin and s ubcutaneous tissues were infiltrated with local anesthetic solution. Under direct ultrasound guidance, a suitable vein was accessed and a measuring guidewire was introduc ed and positioned in the central venous system. The ultrasound images depicting access guidance were saved and stored to PACS for permanent record. A Power Injectable PICC line was cut to prescribed length and introduced, positioned with tip at the cavoatrial junction level. The line was flushed and secured per protocol. CONCLUSION: 1. Uncomplicated central venous Power PICC line placement. 2. The PICC line can be used immediately. Camden Harris MD on September 09, 2016 at 15:42 Board Certified Radiologist. This report was verified electronically.
[2016-09-10] MEDS ORDERED: SODIUM CHLORIDE 0.9% FLUSH 10 ML FLUSH IVF SCH (09:00)
[2016-11-25] MEDS ORDERED: ANTI1CRE6 TOPICAL (11:06)
[2016-11-25] MEDS ORDERED: MERO1INJ8 IV (11:06)
[2016-11-25] MEDS ORDERED: HUMUINJ5 SQ (11:06)
[2016-11-25] MEDS ORDERED: NOVOINJ6 SQ ×2 (11:06)
== END 2016-09-09 15:00 | disposition home or self-care (01) ==
LOC: HROP 13:11 → HRIP 13:12 → HROP 15:00
DX: Z45.2 Encounter for adjustment and management of vascular access device (principal); L03.031 Cellulitis of right toe; M86.671 Other chronic osteomyelitis, right ankle and foot; I10 Essential (primary) hypertension; E11.42 Type 2 diabetes mellitus with diabetic polyneuropathy
CPT/HCPCS: 36569; 76937; 77001; C1751; J1644

== ENCOUNTER → 2016-11-12 | Outpatient (CLI) | payer MEDICARE, MEDICAID ==
[~2016-11-12] MED LIST changes: +ANTI1CRE6 TOPICAL; -AUGM875T PO; -CIPR750T2 PO; -CLIN1CAP6 PO; +HUMUINJ5 SQ; +MERO1INJ8 IV; +NOVOINJ6 SQ; -ZOFR4SOL PO
[2016-11-12 11:15] LABS: BASOPHIL % 0.7 % (0.0-2.0); EOSINOPHIL # 0.2 TH/MM3 (0-0.4); EOSINOPHIL % 3.4 % (0.0-4.0); HEMATOCRIT 29.8 % (39.0-51.0); HEMO FLAGS DIFF FINAL; LYMPH % 20.3 % (9.0-44.0); LYMPHOCYTE # 1.5 TH/MM3 (1.0-4.8); MEAN CELL VOLUME 79.4 FL (80.0-100.0); MEAN CORPUSCULAR HGB CONC 32.8 % (32.0-36.0); MONO % 6.6 % (0.0-8.0); PLATELET COUNT 277 TH/MM3 (150-450); RED BLOOD COUNT 3.76 MIL/MM3 (4.50-5.90); WHITE BLOOD COUNT 7.3 TH/MM3 (4.0-11.0)
== END ==
LOC: CLAB 10:35
DX: M86.671 Other chronic osteomyelitis, right ankle and foot (principal)
CPT/HCPCS: 36415; 85025; 86140

== ENCOUNTER 2016-11-21 14:24 | Day surgery (SDC) | payer MEDICARE, MEDICAID ==
[~2016-11-21 14:24] MED LIST changes: -ANTI1CRE6 TOPICAL; -HUMUINJ5 SQ; -MERO1INJ8 IV; -NOVOINJ6 SQ
[2016-11-21 14:40] VITALS: BP 155/86; PULSE 87; RESP 18; TEMP 99.2; O2SAT 97
[2016-11-21] MEDS ORDERED: MEROPENEM 1,000 MG/NS 100 ML IV ONE ×2 (15:30)
[2016-11-21 15:40] VITALS: BP 138/76; PULSE 86; RESP 20; TEMP 97.4; O2SAT 100
[2016-11-21] MEDS ORDERED: SODIUM CHLORIDE 0.9% FLUSH 10 ML FLUSH IVF PRN ×2 (16:00)
--- NOTE | 2016-11-21 16:00 | PD.RAD ---
Radiology Post PICC Prog Note Pre Procedure Diagnosis: (1) Cellulitis of toe, right Post Procedure Diagnosis: (1) Cellulitis of toe, right Procedure: Right PICC line placement Procedure Date: Nov 21, 2016 Supervising Radiologist Chau Silvestre Proceduralist/Assist: Rozina Puga, RT(R), Sonal Cesar RT(R)() Device Side: Right Uzbek: 4 single lumen cm: 40 Catheter: Power PICC Plan of Activity Patient to Unit: ROPU Patient Condition: Good PICC line can be used immediately Chau Silvestre MD Nov 21, 2016 16:00
--- NOTE | 2016-11-21 16:26 | RADRPT ---
EXAM DATE/TIME: 11/21/2016 15:30 [facility] COMPARISON: PICC LINE INSERTION,POWER W/FL&US, September 09, 2016, 13:20. INDICATIONS : Patient with history of cellulitis of the right great toe in need of PICC line placement. MEDICAL HISTORY : Diabetes, CAD, HTN, Osteomyelitis, MRSA SURGICAL HISTORY : Cardiac stent, Cardiac cath, Tonsillectomy, Appendectomy, 5th toe amputation, Multiple PICC line plac ement ENCOUNTER: Subsequent ACUITY: 3 weeks PAIN SCORE: 0/10 FLUORO TIME: 0.3 minutes IMAGE SERIES: 1 ACCESS: Right basilic vein DEVICE(S): 1.) 4 Palauan single lumen 40 cm [employer]cela Power PICC PROCEDURE : 1. Ultrasound guidance for venous catheterization. 2. Fluoroscopic guidance. 3. Ultrasound & fluoroscopic guided central venous Power PICC line placement. The risks, benefits and alternatives to the procedure were explained and verbal and written consent w as obtained. The site was prepped in sterile fashion. Full sterile technique was used, including ca p, mask, sterile gloves and gown and a large sterile sheet. Hand hygiene and 2% chlorhexidine prep w as utilized per protocol for cutaneous antisepsis with appropriate dry time for site. The skin and s ubcutaneous tissues were infiltrated with local anesthetic solution. Under direct ultrasound guidance, a suitable vein was accessed and a measuring guidewire was introduc ed and positioned in the central venous system. The ultrasound images depicting access guidance were saved and stored to PACS for permanent record. A Power Injectable PICC line was cut to prescribed length and introduced, positioned with tip at the cavoatrial junction level. The line was flushed and secured per protocol. CONCLUSION: 1. Uncomplicated central venous Power PICC line placement. 2. The PICC line can be used immediately. Chau Silvestre MD on November 21, 2016 at 16:18 Board Certified Radiologist. This report was verified electronically.
[2016-11-22] MEDS ORDERED: SODIUM CHLORIDE 0.9% FLUSH 10 ML FLUSH IVF SCH (09:00)
[2016-11-25] MEDS ORDERED: MERO1INJ8 IV (11:06)
[2016-11-25] MEDS ORDERED: NOVOINJ6 SQ ×2 (11:06)
[2016-11-25] MEDS ORDERED: HUMUINJ5 SQ (11:06)
[2016-11-25] MEDS ORDERED: ANTI1CRE6 TOPICAL (11:06)
== END 2016-11-21 16:05 | disposition home or self-care (01) ==
LOC: HROP 14:24 → HRIP 14:25 → HROP 16:05
DX: L03.031 Cellulitis of right toe (principal); I25.10 Atherosclerotic heart disease of native coronary artery without angina pectoris; I10 Essential (primary) hypertension; E11.69 Type 2 diabetes mellitus with other specified complication; M86.9 Osteomyelitis, unspecified; Z86.14 Personal history of Methicillin resistant Staphylococcus aureus infection; Z95.5 Presence of coronary angioplasty implant and graft; Z89.421 Acquired absence of other right toe(s); Z88.5 Allergy status to narcotic agent
CPT/HCPCS: 36569; 76937; 77001; 96365; C1751; J1642

== ENCOUNTER → 2017-03-26 | Outpatient (CLI) | payer MEDICARE, MEDICAID ==
[~2017-03-26] MED LIST changes: +ANTI1CRE6 TOPICAL; -CLIN1GEL TOPICAL; -GENT0.1C TOPICAL; +HEPA100I8 IV; +HUMUINJ5 SQ; -HYDR-3583 PO; +NOVOINJ6 SQ; -NOVONP2 SQ; -NOVORP2 SQ; +NSFLUSH5 IV FLUSH; +OXYC-395 PO
[2017-03-26 10:51] LABS: AUTOMATED NEUTROPHIL # 4.4 TH/MM3 (1.8-7.7); BASOPHIL % 0.6 % (0.0-2.0); EOSINOPHIL # 0.3 TH/MM3 (0-0.4); HEMATOCRIT 30.8 % (39.0-51.0); HEMO FLAGS DIFF FINAL; LYMPH % 24.4 % (9.0-44.0); LYMPHOCYTE # 1.7 TH/MM3 (1.0-4.8); MEAN CELL VOLUME 77.4 FL (80.0-100.0); MEAN CORPUSCULAR HEMOGLOBIN 25.3 PG (27.0-34.0); MEAN CORPUSCULAR HGB CONC 32.6 % (32.0-36.0); PLATELET COUNT 276 TH/MM3 (150-450); RED BLOOD COUNT 3.98 MIL/MM3 (4.50-5.90); RED CELL DISTRIBUTION WIDTH 16.6 % (11.6-17.2); WHITE BLOOD COUNT 6.8 TH/MM3 (4.0-11.0)
[2017-03-26 10:58] LABS: ALT (GPT) 17 U/L (12-78); ANION GAP 9 MEQ/L (5-15); AST (GOT) 10 U/L (15-37); BICARBONATE 23.5 MEQ/L (21.0-32.0); BLOOD UREA NITROGEN 22 MG/DL (7-18); CHLORIDE 104 MEQ/L (98-107); GLOMERULAR FILTRATION RATE 58 ML/MIN (>89); GLUCOSE,FASTING 163 MG/DL (74-99); POTASSIUM 4.1 MEQ/L (3.5-5.1); SODIUM (NA) 136 MEQ/L (136-145)
[2017-03-26 11:00] LABS: ALKALINE PHOSPHATASE 125 U/L (45-117); TOTAL BILIRUBIN ADULT 0.3 MG/DL (0.2-1.0)
== END ==
LOC: CLAB 10:16
PROVIDERS: ATTEND Family Medicine
DX: D64.9 Anemia, unspecified (principal); Z79.891 Long term (current) use of opiate analgesic
CPT/HCPCS: 36415; 80053; 85025

== ENCOUNTER → 2017-03-30 | Outpatient (CLI) | payer MEDICARE, MEDICAID ==
[2017-03-30 14:25] LABS: BASOPHIL # 0.1 TH/MM3 (0-0.2); BASOPHIL % 0.7 % (0.0-2.0); EOSINOPHIL # 0.3 TH/MM3 (0-0.4); EOSINOPHIL % 3.5 % (0.0-4.0); HEMATOCRIT 31.2 % (39.0-51.0); HEMO FLAGS DIFF FINAL; LYMPH % 19.2 % (9.0-44.0); LYMPHOCYTE # 1.6 TH/MM3 (1.0-4.8); MEAN CELL VOLUME 77.5 FL (80.0-100.0); MEAN CORPUSCULAR HEMOGLOBIN 25.3 PG (27.0-34.0); MEAN CORPUSCULAR HGB CONC 32.6 % (32.0-36.0); MONO % 6.9 % (0.0-8.0); NEUT % 69.7 % (16.0-70.0); PLATELET COUNT 280 TH/MM3 (150-450); RED BLOOD COUNT 4.02 MIL/MM3 (4.50-5.90); RED CELL DISTRIBUTION WIDTH 16.6 % (11.6-17.2); WHITE BLOOD COUNT 8.6 TH/MM3 (4.0-11.0)
[2017-03-30 14:39] LABS: ALT (GPT) 17 U/L (12-78); ANION GAP 9 MEQ/L (5-15); AST (GOT) 11 U/L (15-37); BICARBONATE 23.4 MEQ/L (21.0-32.0); BLOOD UREA NITROGEN 27 MG/DL (7-18); CHLORIDE 100 MEQ/L (98-107); GLOMERULAR FILTRATION RATE 51 ML/MIN (>89); GLUCOSE,FASTING 319 MG/DL (74-99); POTASSIUM 4.5 MEQ/L (3.5-5.1); SODIUM (NA) 132 MEQ/L (136-145)
[2017-03-30 14:42] LABS: ALKALINE PHOSPHATASE 121 U/L (45-117); TOTAL BILIRUBIN ADULT 0.3 MG/DL (0.2-1.0)
== END ==
LOC: CLAB 14:02
PROVIDERS: ATTEND Family Medicine
DX: D64.9 Anemia, unspecified (principal); Z01.01 Encounter for examination of eyes and vision with abnormal findings; Z79.891 Long term (current) use of opiate analgesic
CPT/HCPCS: 36415; 80053; 85025

== ENCOUNTER → 2017-04-08 | Outpatient (CLI) | payer MEDICARE, OTHER ==
[2017-04-08 09:38] LABS: AUTOMATED NEUTROPHIL # 5.4 TH/MM3 (1.8-7.7); BASOPHIL % 0.7 % (0.0-2.0); EOSINOPHIL # 0.4 TH/MM3 (0-0.4); EOSINOPHIL % 5.1 % (0.0-4.0); HEMATOCRIT 32.5 % (39.0-51.0); HEMO FLAGS DIFF FINAL; LYMPH % 16.8 % (9.0-44.0); LYMPHOCYTE # 1.2 TH/MM3 (1.0-4.8); MEAN CORPUSCULAR HEMOGLOBIN 25.3 PG (27.0-34.0); MEAN CORPUSCULAR HGB CONC 32.9 % (32.0-36.0); MONO % 5.3 % (0.0-8.0); NEUT % 72.1 % (16.0-70.0); PLATELET COUNT 326 TH/MM3 (150-450); RED BLOOD COUNT 4.22 MIL/MM3 (4.50-5.90); RED CELL DISTRIBUTION WIDTH 16.1 % (11.6-17.2); WHITE BLOOD COUNT 7.5 TH/MM3 (4.0-11.0)
[2017-04-08 10:14] LABS: ANION GAP 8 MEQ/L (5-15); AST (GOT) 12 U/L (15-37); BLOOD UREA NITROGEN 25 MG/DL (7-18); CHLORIDE 101 MEQ/L (98-107); GLOMERULAR FILTRATION RATE 56 ML/MIN (>89); GLUCOSE,FASTING 252 MG/DL (74-99); POTASSIUM 4.3 MEQ/L (3.5-5.1); SODIUM (NA) 133 MEQ/L (136-145)
[2017-04-08 10:15] LABS: ALT (GPT) 18 U/L (12-78)
[2017-04-08 10:17] LABS: ALKALINE PHOSPHATASE 132 U/L (45-117); TOTAL BILIRUBIN ADULT 0.2 MG/DL (0.2-1.0)
== END ==
LOC: CLAB 09:00
DX: D64.9 Anemia, unspecified (principal); R94.5 Abnormal results of liver function studies; Z79.891 Long term (current) use of opiate analgesic
CPT/HCPCS: 36415; 80053; 82248; 85025

== ENCOUNTER → 2017-04-15 | Outpatient (CLI) | payer MEDICARE, OTHER ==
[2017-04-15 10:54] LABS: AUTOMATED NEUTROPHIL # 6.7 TH/MM3 (1.8-7.7); BASOPHIL % 0.5 % (0.0-2.0); EOSINOPHIL # 0.3 TH/MM3 (0-0.4); EOSINOPHIL % 2.9 % (0.0-4.0); HEMATOCRIT 29.7 % (39.0-51.0); HEMOGLOBIN 9.7 GM/DL (13.0-17.0); LYMPH % 15.3 % (9.0-44.0); LYMPHOCYTE # 1.4 TH/MM3 (1.0-4.8); MEAN CORPUSCULAR HEMOGLOBIN 24.7 PG (27.0-34.0); MEAN CORPUSCULAR HGB CONC 32.5 % (32.0-36.0); MEAN PLATELET VOLUME 6.6 FL (7.0-11.0); MONOCYTE # 0.6 TH/MM3 (0-0.9); NEUT % 74.3 % (16.0-70.0); PLATELET COUNT 329 TH/MM3 (150-450); RED BLOOD COUNT 3.91 MIL/MM3 (4.50-5.90); RED CELL DISTRIBUTION WIDTH 16.4 % (11.6-17.2)
[2017-04-15 11:26] LABS: AST (GOT) 10 U/L (15-37); BICARBONATE 24.6 MEQ/L (21.0-32.0); BLOOD UREA NITROGEN 22 MG/DL (7-18); CALCIUM 8.7 MG/DL (8.5-10.1); CHLORIDE 99 MEQ/L (98-107); CREATININE 1.41 MG/DL (0.60-1.30); GLOMERULAR FILTRATION RATE 52 ML/MIN (>89); GLUCOSE,FASTING 309 MG/DL (74-99); SODIUM (NA) 130 MEQ/L (136-145)
[2017-04-15 11:27] LABS: ALT (GPT) 12 U/L (12-78)
[2017-04-15 11:28] LABS: ALKALINE PHOSPHATASE 130 U/L (45-117); TOTAL BILIRUBIN ADULT 0.3 MG/DL (0.2-1.0); TOTAL PROTEIN 7.8 GM/DL (6.4-8.2)
[2017-04-17 22:30] LABS: FREE TESTOSTERONE 3.13 ng/dL (3.87-14.7)
== END ==
LOC: CLAB 10:30
PROVIDERS: ATTEND Family Medicine
DX: D64.9 Anemia, unspecified (principal); Z79.891 Long term (current) use of opiate analgesic
CPT/HCPCS: 36415; 80053; 84403; 84410; 85025

== ENCOUNTER → 2017-04-21 | Outpatient (CLI) | payer MEDICARE, OTHER ==
[2017-04-21 13:18] LABS: AUTOMATED NEUTROPHIL # 8.3 TH/MM3 (1.8-7.7); BASOPHIL # 0.1 TH/MM3 (0-0.2); BASOPHIL % 0.7 % (0.0-2.0); EOSINOPHIL # 0.4 TH/MM3 (0-0.4); EOSINOPHIL % 3.7 % (0.0-4.0); HEMATOCRIT 30.7 % (39.0-51.0); LYMPH % 15.7 % (9.0-44.0); LYMPHOCYTE # 1.7 TH/MM3 (1.0-4.8); MEAN CELL VOLUME 75.5 FL (80.0-100.0); MEAN CORPUSCULAR HEMOGLOBIN 24.6 PG (27.0-34.0); MEAN CORPUSCULAR HGB CONC 32.6 % (32.0-36.0); MEAN PLATELET VOLUME 7.2 FL (7.0-11.0); MONO % 4.5 % (0.0-8.0); MONOCYTE # 0.5 TH/MM3 (0-0.9); NEUT % 75.4 % (16.0-70.0); PLATELET COUNT 440 TH/MM3 (150-450); RED BLOOD COUNT 4.06 MIL/MM3 (4.50-5.90); RED CELL DISTRIBUTION WIDTH 15.9 % (11.6-17.2)
[2017-04-21 13:44] LABS: ALBUMIN 2.9 GM/DL (3.4-5.0); BICARBONATE 23.1 MEQ/L (21.0-32.0); BLOOD UREA NITROGEN 29 MG/DL (7-18); CALCIUM 9.3 MG/DL (8.5-10.1); CHLORIDE 96 MEQ/L (98-107); CREATININE 1.39 MG/DL (0.60-1.30); GLOMERULAR FILTRATION RATE 53 ML/MIN (>89); SODIUM (NA) 130 MEQ/L (136-145)
[2017-04-21 13:45] LABS: GLUCOSE,FASTING 349 MG/DL (74-99)
[2017-04-21 13:52] LABS: ALKALINE PHOSPHATASE 167 U/L (45-117); ALT (GPT) 35 U/L (12-78); AST (GOT) 25 U/L (15-37); TOTAL BILIRUBIN ADULT 0.2 MG/DL (0.2-1.0); TOTAL PROTEIN 8.6 GM/DL (6.4-8.2)
== END ==
LOC: CLAB 12:34
PROVIDERS: ATTEND Family Medicine
DX: D64.9 Anemia, unspecified (principal); Z79.891 Long term (current) use of opiate analgesic
CPT/HCPCS: 36415; 80053; 85025

== ENCOUNTER → 2017-05-05 | Outpatient (CLI) | payer MEDICARE, OTHER ==
[2017-05-05 13:43] LABS: AUTOMATED NEUTROPHIL # 5.8 TH/MM3 (1.8-7.7); BASOPHIL # 0.1 TH/MM3 (0-0.2); BASOPHIL % 0.8 % (0.0-2.0); EOSINOPHIL # 0.3 TH/MM3 (0-0.4); EOSINOPHIL % 3.3 % (0.0-4.0); HEMATOCRIT 28.8 % (39.0-51.0); HEMO FLAGS DIFF FINAL; LYMPH % 24.4 % (9.0-44.0); LYMPHOCYTE # 2.1 TH/MM3 (1.0-4.8); MEAN CELL VOLUME 74.3 FL (80.0-100.0); MEAN CORPUSCULAR HEMOGLOBIN 25.7 PG (27.0-34.0); MEAN CORPUSCULAR HGB CONC 34.5 % (32.0-36.0); MONO % 5.7 % (0.0-8.0); NEUT % 65.8 % (16.0-70.0); PLATELET COUNT 330 TH/MM3 (150-450); RED BLOOD COUNT 3.88 MIL/MM3 (4.50-5.90); RED CELL DISTRIBUTION WIDTH 15.8 % (11.6-17.2); WHITE BLOOD COUNT 8.8 TH/MM3 (4.0-11.0)
[2017-05-05 14:11] LABS: ALT (GPT) 17 U/L (12-78); ANION GAP 8 MEQ/L (5-15); AST (GOT) 11 U/L (15-37); BICARBONATE 25.4 MEQ/L (21.0-32.0); BLOOD UREA NITROGEN 22 MG/DL (7-18); CHLORIDE 101 MEQ/L (98-107); GLOMERULAR FILTRATION RATE 54 ML/MIN (>89); GLUCOSE,FASTING 248 MG/DL (74-99); POTASSIUM 3.9 MEQ/L (3.5-5.1); SODIUM (NA) 134 MEQ/L (136-145)
[2017-05-05 14:13] LABS: ALKALINE PHOSPHATASE 148 U/L (45-117); TOTAL BILIRUBIN ADULT 0.3 MG/DL (0.2-1.0)
== END ==
LOC: CLAB 13:14
PROVIDERS: ATTEND Family Medicine
DX: D64.9 Anemia, unspecified (principal)
CPT/HCPCS: 36415; 80053; 85025

== ENCOUNTER → 2017-05-11 | Outpatient (CLI) | payer MEDICARE, OTHER ==
[2017-05-11 10:34] LABS: AUTOMATED NEUTROPHIL # 7.3 TH/MM3 (1.8-7.7); BASOPHIL # 0.1 TH/MM3 (0-0.2); BASOPHIL % 0.8 % (0.0-2.0); EOSINOPHIL # 0.3 TH/MM3 (0-0.4); EOSINOPHIL % 3.2 % (0.0-4.0); HEMATOCRIT 29.4 % (39.0-51.0); HEMO FLAGS DIFF FINAL; LYMPH % 19.2 % (9.0-44.0); MEAN CELL VOLUME 74.3 FL (80.0-100.0); MEAN CORPUSCULAR HEMOGLOBIN 24.2 PG (27.0-34.0); MEAN CORPUSCULAR HGB CONC 32.6 % (32.0-36.0); MONO % 7.1 % (0.0-8.0); NEUT % 69.7 % (16.0-70.0); PLATELET COUNT 280 TH/MM3 (150-450); RED BLOOD COUNT 3.95 MIL/MM3 (4.50-5.90); RED CELL DISTRIBUTION WIDTH 16.3 % (11.6-17.2); WHITE BLOOD COUNT 10.5 TH/MM3 (4.0-11.0)
[2017-05-11 10:55] LABS: ALT (GPT) 13 U/L (12-78); ANION GAP 10 MEQ/L (5-15); AST (GOT) 9 U/L (15-37); BICARBONATE 23.4 MEQ/L (21.0-32.0); BLOOD UREA NITROGEN 25 MG/DL (7-18); CHLORIDE 100 MEQ/L (98-107); GLOMERULAR FILTRATION RATE 56 ML/MIN (>89); GLUCOSE,FASTING 239 MG/DL (74-99); POTASSIUM 4.3 MEQ/L (3.5-5.1); SODIUM (NA) 133 MEQ/L (136-145)
[2017-05-11 10:58] LABS: ALKALINE PHOSPHATASE 134 U/L (45-117); TOTAL BILIRUBIN ADULT 0.3 MG/DL (0.2-1.0)
== END ==
LOC: CLAB 10:08
PROVIDERS: ATTEND Family Medicine
DX: D64.9 Anemia, unspecified (principal); Z79.891 Long term (current) use of opiate analgesic; Z01.01 Encounter for examination of eyes and vision with abnormal findings
CPT/HCPCS: 36415; 80053; 85025

== ENCOUNTER → 2017-06-01 | Outpatient (CLI) | payer MEDICARE, OTHER ==
[2017-06-01 12:15] LABS: AUTOMATED NEUTROPHIL # 6.8 TH/MM3 (1.8-7.7); BASOPHIL # 0.1 TH/MM3 (0-0.2); BASOPHIL % 0.6 % (0.0-2.0); EOSINOPHIL # 0.2 TH/MM3 (0-0.4); EOSINOPHIL % 2.6 % (0.0-4.0); HEMO FLAGS DIFF FINAL; LYMPH % 18.7 % (9.0-44.0); LYMPHOCYTE # 1.7 TH/MM3 (1.0-4.8); MEAN CELL VOLUME 74.1 FL (80.0-100.0); MEAN CORPUSCULAR HEMOGLOBIN 23.8 PG (27.0-34.0); MEAN CORPUSCULAR HGB CONC 32.1 % (32.0-36.0); MONO % 4.8 % (0.0-8.0); NEUT % 73.3 % (16.0-70.0); PLATELET COUNT 383 TH/MM3 (150-450); RED BLOOD COUNT 3.91 MIL/MM3 (4.50-5.90); RED CELL DISTRIBUTION WIDTH 16.3 % (11.6-17.2); WHITE BLOOD COUNT 9.2 TH/MM3 (4.0-11.0)
[2017-06-01 12:43] LABS: ALT (GPT) 16 U/L (12-78); ANION GAP 8 MEQ/L (5-15); AST (GOT) 14 U/L (15-37); BICARBONATE 23.6 MEQ/L (21.0-32.0); BLOOD UREA NITROGEN 29 MG/DL (7-18); CHLORIDE 99 MEQ/L (98-107); GLOMERULAR FILTRATION RATE 45 ML/MIN (>89); GLUCOSE,FASTING 371 MG/DL (74-99); POTASSIUM 4.5 MEQ/L (3.5-5.1); SODIUM (NA) 131 MEQ/L (136-145)
[2017-06-01 12:45] LABS: ALKALINE PHOSPHATASE 144 U/L (45-117); TOTAL BILIRUBIN ADULT 0.2 MG/DL (0.2-1.0)
== END ==
LOC: CLAB 11:41
DX: D64.9 Anemia, unspecified (principal); Z79.891 Long term (current) use of opiate analgesic
CPT/HCPCS: 36415; 80053; 85025

== ENCOUNTER → 2017-06-17 | Outpatient (CLI) | payer MEDICARE, OTHER ==
[2017-06-17 15:14] LABS: AUTOMATED NEUTROPHIL # 6.8 TH/MM3 (1.8-7.7); BASOPHIL # 0.1 TH/MM3 (0-0.2); BASOPHIL % 0.6 % (0.0-2.0); EOSINOPHIL # 0.3 TH/MM3 (0-0.4); EOSINOPHIL % 2.9 % (0.0-4.0); HEMOGLOBIN 9.3 GM/DL (13.0-17.0); LYMPH % 16.4 % (9.0-44.0); LYMPHOCYTE # 1.5 TH/MM3 (1.0-4.8); MEAN CELL VOLUME 72.4 FL (80.0-100.0); MEAN CORPUSCULAR HEMOGLOBIN 23.3 PG (27.0-34.0); MEAN CORPUSCULAR HGB CONC 32.1 % (32.0-36.0); MONO % 6.1 % (0.0-8.0); MONOCYTE # 0.6 TH/MM3 (0-0.9); PLATELET COUNT 344 TH/MM3 (150-450); RED BLOOD COUNT 4.01 MIL/MM3 (4.50-5.90); RED CELL DISTRIBUTION WIDTH 17.7 % (11.6-17.2); WHITE BLOOD COUNT 9.2 TH/MM3 (4.0-11.0)
[2017-06-17 15:40] LABS: ALBUMIN 2.8 GM/DL (3.4-5.0); ALT (GPT) 15 U/L (12-78); AST (GOT) 7 U/L (15-37); BICARBONATE 23.1 MEQ/L (21.0-32.0); BLOOD UREA NITROGEN 33 MG/DL (7-18); CHLORIDE 98 MEQ/L (98-107); CREATININE 1.57 MG/DL (0.60-1.30); GLOMERULAR FILTRATION RATE 46 ML/MIN (>89); GLUCOSE,FASTING 384 MG/DL (74-99); SODIUM (NA) 131 MEQ/L (136-145)
[2017-06-17 15:55] LABS: ALKALINE PHOSPHATASE 143 U/L (45-117); TOTAL BILIRUBIN ADULT 0.3 MG/DL (0.2-1.0); TOTAL PROTEIN 8.2 GM/DL (6.4-8.2)
== END ==
LOC: CLAB 14:45
PROVIDERS: ATTEND Family Medicine
DX: D64.9 Anemia, unspecified (principal); Z79.891 Long term (current) use of opiate analgesic
CPT/HCPCS: 36415; 80053; 85025

== ENCOUNTER 2017-07-01 20:46 | Inpatient (IN) | payer MEDICARE, MEDICAID ==
[2017-07-01 20:47] VITALS: BP 144/83; PULSE 132; RESP 20; TEMP 101.1; O2SAT 96
[2017-07-01 20:58] VITALS: RESP 22
[2017-07-01 21:20] VITALS: BP 135/70; PULSE 127; RESP 24; TEMP 102.7; O2SAT 100
[2017-07-01] MEDS ORDERED: ACETAMINOPHEN 325 MG TAB PO ONE (21:45)
[2017-07-01] MEDS ORDERED: ONDANSETRON HCL 4 MG/2 ML VIAL IV PUSH ONE (21:45)
[2017-07-01] MEDS ORDERED: KETOROLAC TROMETHAMINE 30 MG/ML (IVP) VIAL IV PUSH ONE (21:45)
[2017-07-01] MEDS ORDERED: SODIUM CHLOR 0.9% 1000 ML INJ 1,000 ML IV ONE (21:45)
--- NOTE | 2017-07-01 21:45 | PD ---
HPI Chief Complaint: Cold / Flu Symptoms Time Seen by Provider: 21:27 Travel History International Travel<30 days: No Contact w/Intl Traveler<30days: No Traveled to known affect area: No History of Present Illness HPI 57-year-old male complains of fever, coughing congestion, nausea vomiting, abdominal pain. Patient states that the symptoms started 4 days ago. Patient states that he has poor appetite. Patient has history of diabetes and blood sugars been running high at home. Patient states the abdominal pain is cramping pain intermittent pain associate with vomiting. Patient states that abdominal pain localized to lower abdomen. Patient denies any pain radiation. Patient denies any dysuria or frequency. Patient denies any back pain. Patient states that the cough is intermittent and mild productive. Patient denies any chest pain. Patient denies any shortness of breath. Patient also has left foot ulcers for the past month. Patient has been seen by speed runner with wound and dressing change frequently. PFSH Past Medical History Cancer: No Cardiac Catheterization: Yes Cardiovascular Problems: No Diabetes: Yes Patient Takes Glucophage: No Endocrine: Yes Genitourinary: No Immune Disorder: No Musculoskeletal: No Neurologic: No Psychiatric: No Reproductive: No Respiratory: No Influenza Vaccination: No Past Surgical History Abdominal Surgery: Yes (APPENDIX, HERNIA REPAIR) Cardiac Surgery: Yes (cardiac stent) Coronary Stent: Yes Other Surgery: Yes Social History Alcohol Use: Yes (rarely) Tobacco Use: No Substance Use: No Allergies-Medications (Allergen,Severity, Reaction): Coded Allergies: codeine (Unverified Allergy, Severe, Cardiac arrest, 03/04/17) *MDRO Multi-Drug Resistant Organism (Verified Adverse Reaction, Unknown, ) MRSA (blood)-07/23/16; (foot)-07/26/16 Uncoded Allergies: NOWAK (Adverse Reaction, Unknown, FLU LIKE SYMPTOMS, 11/25/16) NOWAK HAIR REMOVAL CREAM Reported Meds & Prescriptions Reported Meds & Active Scripts Active Cialis (Tadalafil) 5 Mg Tab 5 Mg PO DAILY Do not exceed 1 dose/day. Flomax (Tamsulosin HCl) 0.4 Mg Cap 0.4 Mg PO HS Reported Saline Flush (IV Flush) 0.9 % Inj 10 Ml IV FLUSH WEEKLY Oxycodone (Oxycodone HCl) 10 Mg Tab 10 Mg PO Q6H PRN Anti-Fungal Topical (Clotrimazole) 1% Cream 1 Applic TOPICAL DAILY Novolin N U-100 Inj (Insulin NPH (Human) (Isophane) Inj) 100 Unit/Ml Inj 35 Unit SQ DAILY Novolin N U-100 Inj (Insulin NPH (Human) (Isophane) Inj) 100 Unit/Ml Inj 25 Unit SQ HS Humulin R U-500 (Concentrate) Inj (Insulin Regular (Human) Concentrate Inj) 10, 000 Unit/20 Ml Vial Unknown Dose SQ ACHS Review of Systems General / Constitutional: Positive: Fever Eyes: No: Visual changes HENT: No: Headaches Cardiovascular: No: Chest Pain or Discomfort Respiratory: Positive: Cough, No: Shortness of Breath Gastrointestinal: Positive: Nausea, Vomiting, No: Abdominal Pain Genitourinary: No: Dysuria Musculoskeletal: No: Pain Skin: No Rash Neurologic: No: Weakness Psychiatric: No: Depression Endocrine: No: Polydipsia Hematologic/Lymphatic: No: Easy Bruising Physical Exam Narrative GENERAL: Well-nourished, well-developed patient. SKIN: Focused skin assessment warm/dry. HEAD: Normocephalic. EYES: No scleral icterus. No injection or drainage. Throat: Nonerythematous. NECK: Supple, trachea midline. No JVD or lymphadenopathy. No meningismus CARDIOVASCULAR: Regular rate and rhythm without murmurs, gallops, or rubs. RESPIRATORY: Breath sounds equal bilaterally. No accessory muscle use. GASTROINTESTINAL: Abdomen soft, non-tender, nondistended. MUSCULOSKELETAL: Patient has 2 large ulcers on the left foot. One on the lateral aspect of left foot inferior to the lateral malleus area of the left ankle. The wound is moist and pink with clear discharge. Another ulcer on the plantar aspect of the left foot. BACK: Nontender without obvious deformity. No CVA tenderness. Neurologic exam normal. Data Data Last Documented VS Vital Signs Date Time Temp Pulse Resp B/P (MAP) Pulse Ox O2 Delivery O2 Flow Rate FiO2 07/01/17 22:26 119 20 139/64 (89) 100 Nasal Cannula 2.00 07/01/17 21:20 102.7 Orders Orders Complete Blood Count With Diff (07/01/17 21:22) Comprehensive Metabolic Panel (07/01/17 21:22) Urinalysis - C+S If Indicated (07/01/17 21:22) Blood Culture (07/01/17 21:22) Iv Access Insert/Monitor (07/01/17 21:22) Chest, Single Ap (07/01/17 21:22) Ecg Monitoring (07/01/17 21:22) Oximetry (07/01/17 21:22) Beta Hydroxybutyrate (Acetone) (07/01/17 21:35) Influenzae A/B Antigen (07/01/17 21:35) Sodium Chlor 0.9% 1000 Ml Inj (Ns 1000 M (07/01/17 21:45) Ketorolac Inj (Toradol Inj) (07/01/17 21:45) Acetaminophen (Tylenol) (07/01/17 21:45) Lactic Acid (07/01/17 21:35) Ondansetron Inj (Zofran Inj) (07/01/17 21:45) Metoclopramide Inj (Reglan Inj) (07/01/17 22:30) Diphenhydramine Inj (Benadryl Inj) (07/01/17 22:30) Boat Outfitting Supervisor / Telemetry ARGELIA.Q8H (07/02/17 00:25) Sodium Chlor 0.9% 1000 Ml Inj (Ns 1000 M (07/02/17 00:25) Sodium Chlor 0.9% 1000 Ml Inj (Ns 1000 M (07/02/17 00:25) Dext 5%-Nacl 0.9% 1000 Ml Inj (D5w-Ns 10 (07/02/17 00:25) Insulin Human Regular Inj (Novolin R Inj (07/02/17 00:30) Insulin Regular (Iv Infusion) (Novolin R (07/02/17 00:30) Potassium Chlor 40 Meq Premix (Kcl 40 Me (07/02/17 00:30) Potassium Chlor 40 Meq Premix (Kcl 40 Me (07/02/17 00:30) Potassium Chlor 20 Meq Premix (Kcl 20 Me (07/02/17 00:30) Potassium Chlor 20 Meq Premix (Kcl 20 Me (07/02/17 00:30) Potassium Chlor 20 Meq Premix (Kcl 20 Me (07/02/17 00:30) Potassium Chlor 20 Meq Premix (Kcl 20 Me (07/02/17 00:30) Potassium Chlor 20 Meq Premix (Kcl 20 Me (07/02/17 00:30) Potassium Chlor 20 Meq Premix (Kcl 20 Me (07/02/17 00:30) Sodium Bicarbonate 8.4% Inj (Sodium Bica (07/02/17 00:30) Sodium Bicarbonate 8.4% Inj (Sodium Bica (07/02/17 00:30) Sodium Phosphate Inj (Sodium Phosphate I (07/02/17 00:30) Hemoglobin (Hgb) A1c (07/02/17 00:25) Basic Metabolic Panel (Bmp) (07/02/17 05:25) Basic Metabolic Panel (Bmp) (07/02/17 11:25) Basic Metabolic Panel (Bmp) (07/02/17 17:25) Basic Metabolic Panel (Bmp) (07/02/17 23:25) Magnesium (Mg) (07/02/17 05:25) Magnesium (Mg) (07/02/17 11:25) Magnesium (Mg) (07/02/17 17:25) Magnesium (Mg) (07/02/17 23:25) Phosphorus (Po4) (07/02/17 05:25) Phosphorus (Po4) (07/02/17 11:25) Phosphorus (Po4) (07/02/17 17:25) Phosphorus (Po4) (07/02/17 23:25) Beta Hydroxybutyrate (Acetone) (07/02/17 11:25) Beta Hydroxybutyrate (Acetone) (07/02/17 23:25) Lactic Acid (07/02/17 00:31) Admit Order (Ed Use Only) (07/02/17 00:33) Troponin I (07/02/17 03:20) Labs Laboratory Tests Test 07/01/17 00:00 07/01/17 22:00 07/02/17 00:10 Troponin I 2.71 NG/ML White Blood Count 16.7 TH/MM3 Red Blood Count 3.64 MIL/MM3 Hemoglobin 8.2 GM/DL Hematocrit 26.0 % Mean Corpuscular Volume 71.3 FL Mean Corpuscular Hemoglobin 22.6 PG Mean Corpuscular Hemoglobin Concent 31.8 % Red Cell Distribution Width 18.6 % Platelet Count 384 TH/MM3 Mean Platelet Volume 7.5 FL Neutrophils (%) (Auto) 89.7 % Lymphocytes (%) (Auto) 3.0 % Monocytes (%) (Auto) 6.9 % Eosinophils (%) (Auto) 0.0 % Basophils (%) (Auto) 0.4 % Neutrophils # (Auto) 15.0 TH/MM3 Lymphocytes # (Auto) 0.5 TH/MM3 Monocytes # (Auto) 1.1 TH/MM3 Eosinophils # (Auto) 0.0 TH/MM3 Basophils # (Auto) 0.1 TH/MM3 CBC Comment DIFF FINAL Differential Comment Blood Urea Nitrogen 50 MG/DL Creatinine 2.16 MG/DL Random Glucose 532 MG/DL Total Protein 7.8 GM/DL Albumin 2.2 GM/DL Calcium Level 8.5 MG/DL Alkaline Phosphatase 178 U/L Aspartate Amino Transf (AST/SGOT) 27 U/L Alanine Aminotransferase (ALT/SGPT) 19 U/L Total Bilirubin 0.5 MG/DL Sodium Level 122 MEQ/L Potassium Level 4.2 MEQ/L Chloride Level 88 MEQ/L Carbon Dioxide Level 18.8 MEQ/L Anion Gap 15 MEQ/L Estimat Glomerular Filtration Rate 32 ML/MIN Lactic Acid Level 3.2 mmol/L 2.1 mmol/L B-Hydroxybutyrate 0.22 MMOL/L MDM Medical Decision Making Medical Screen Exam Complete: Yes Emergency Medical Condition: Yes Interpretation(s) Last Impressions Chest X-Ray 07/01/172121 Signed Impressions: Service Date/Time: Saturday, July 01, 2017 21:34 - CONCLUSION: Normal examination. Jacob Pike MD 22:31 PM. CBC WBC 16.7. Hemoglobin 8.2 hematocrit 26.0. MCV 71.3. 89 neutrophil. 12:11 AM. Sodium 122. Potassium 4.2. Chloride 88. Bicarbonate 18.8. BUN 50. Creatinine 2.16. Glucose 532. Lactic acid 3.2. Differential Diagnosis Differential diagnosis including viral syndrome, bronchitis, pneumonia, dehydration, electrolyte imbalance, hyperglycemia, DKA Narrative Course 57-year-old male with fever, body ache, nausea vomiting, coughing congestion, abdominal pain. Patient also has 2 large ulcers on the left foot. Normal saline solution 1 L IV bolus. Toradol 30 mg IV. Zofran 4 mg IV. Tylenol 650 mg by mouth. Reglan 10 mg IV. Benadryl 50 mg IV. Oxycodone 10 mg by mouth. Diagnosis Primary Impression: Diabetic ketoacidosis Qualified Codes: E10.10 - Type 1 diabetes mellitus with ketoacidosis without coma Additional Impressions: Hyponatremia Acute kidney injury superimposed on chronic kidney disease Foot ulcer, left Qualified Codes: L97.523 - Non-pressure chronic ulcer of other part of left foot with necrosis of muscle Admitting Information Admitting Physician Requests: Admit Edvin Rivera MD Jul 01, 2017 21:45
--- NOTE | 2017-07-01 21:53 | RADRPT ---
EXAM DATE/TIME: 07/01/2017 21:34 [facility] COMPARISON: No previous studies available for comparison. INDICATIONS : Fever, cough, and shortness of breath. MEDICAL HISTORY : Hypertension. Cardiovascular disease. Diabetes. SURGICAL HISTORY : Appendectomy. ENCOUNTER: Initial ACUITY: 3 days PAIN SCORE: 0/10 LOCATION: chest FINDINGS: A single view of the chest demonstrates the lungs to be symmetrically aerated without evidence of mas s, infiltrate or effusion. The cardiomediastinal contours are unremarkable. Osseous structures are intact. CONCLUSION: Normal examination. Jacob Pike MD on July 01, 2017 at 21:51 Board Certified Radiologist. This report was verified electronically.
[2017-07-01 22:26] VITALS: BP 139/64; PULSE 119; RESP 20; O2SAT 100
[2017-07-01 22:29] LABS: BASOPHIL # 0.1 TH/MM3 (0-0.2); BASOPHIL % 0.4 % (0.0-2.0); HEMOGLOBIN 8.2 GM/DL (13.0-17.0); LYMPHOCYTE # 0.5 TH/MM3 (1.0-4.8); MEAN CELL VOLUME 71.3 FL (80.0-100.0); MEAN CORPUSCULAR HEMOGLOBIN 22.6 PG (27.0-34.0); MEAN CORPUSCULAR HGB CONC 31.8 % (32.0-36.0); MEAN PLATELET VOLUME 7.5 FL (7.0-11.0); MONO % 6.9 % (0.0-8.0); MONOCYTE # 1.1 TH/MM3 (0-0.9); NEUT % 89.7 % (16.0-70.0); PLATELET COUNT 384 TH/MM3 (150-450); RED BLOOD COUNT 3.64 MIL/MM3 (4.50-5.90); RED CELL DISTRIBUTION WIDTH 18.6 % (11.6-17.2); WHITE BLOOD COUNT 16.7 TH/MM3 (4.0-11.0)
[2017-07-01] MEDS ORDERED: diphenhydrAMINE HCL 50 MG/ML VIAL IV PUSH ONE (22:30)
[2017-07-01] MEDS ORDERED: METOCLOPRAMIDE HCL 10 MG/2 ML VIAL IV PUSH ONE (22:30)
[2017-07-01 23:24] LABS: ALBUMIN 2.2 GM/DL (3.4-5.0); ALKALINE PHOSPHATASE 178 U/L (45-117); ALT (GPT) 19 U/L (12-78); AST (GOT) 27 U/L (15-37); BICARBONATE 18.8 MEQ/L (21.0-32.0); BLOOD UREA NITROGEN 50 MG/DL (7-18); CALCIUM 8.5 MG/DL (8.5-10.1); CHLORIDE 88 MEQ/L (98-107); CREATININE 2.16 MG/DL (0.60-1.30); GLOMERULAR FILTRATION RATE 32 ML/MIN (>89); TOTAL BILIRUBIN ADULT 0.5 MG/DL (0.2-1.0); TOTAL PROTEIN 7.8 GM/DL (6.4-8.2)
[2017-07-01 23:31] LABS: GLUCOSE,RANDOM 532 MG/DL (74-106); SODIUM (NA) 122 MEQ/L (136-145)
[2017-07-02] VITALS (21 sets, daily range): BP systolic 118–165; BP diastolic 64–90; PULSE 87–115; RESP 18–21; TEMP 97.8–99; O2SAT 90–100
[2017-07-02] MEDS: SODIUM CHLOR 0.9% 1000 ML INJ 1,000 ML IV SCH ×2 (00:01→16:02)
[2017-07-02] MEDS ORDERED: DEXT 5%-NACL 0.9% 1000 ML INJ 1,000 ML IV SCH (00:25)
[2017-07-02] MEDS ORDERED: SODIUM CHLOR 0.9% 1000 ML INJ 1,000 ML IV SCH ×2 (00:25)
[2017-07-02] MEDS ORDERED: SODIUM BICARBONATE 8.4% SOLN 50 MEQ/50 ML VIAL IV PUSH PRN ×2 (00:30)
[2017-07-02] MEDS ORDERED: INSULIN HUMAN REGULAR 1,000 UNITS/10 ML VIAL IV PUSH ONE (00:30)
[2017-07-02] MEDS ORDERED: SODIUM PHOSPHATE INJ 15 MMOL in SODIUM CHLORIDE 0.9% INJ 100 ML IV PRN (00:30)
[2017-07-02] MEDS ORDERED: POTASSIUM CHLOR 20 MEQ PREMIX 100 ML IV PRN ×8 (00:30→16:30)
[2017-07-02] MEDS ORDERED: INSULIN REGULAR (IV INFUSION) 100 UNITS in SODIUM CHLORIDE 0.9% INJ 99 ML IV PRN ×3 (00:30→01:30)
[2017-07-02] MEDS ORDERED: POTASSIUM CHLOR 40 MEQ PREMIX 100 ML IV PRN ×5 (00:30→16:45)
[2017-07-02] MEDS ORDERED: RESP: ALBUTEROL 2.5 MG/IPRATROPIUM 0.5 MG NEB (PRN) INH (01:30)
[2017-07-02] MEDS ORDERED: GLUCAGON 1 MG/ML VIAL OTHER PRN ×2 (01:30→20:30)
[2017-07-02] MEDS ORDERED: PROPOFOL 1000 MG/100 ML INJ 100 ML IV PRN (01:30)
[2017-07-02] MEDS ORDERED: BISACODYL 10 MG SUPP RECTAL PRN (01:30)
[2017-07-02] MEDS ORDERED: MIDAZOLAM HCL 2 MG/2 ML VIAL IV PUSH PRN (01:30)
[2017-07-02] MEDS ORDERED: SENNOSIDES 8.6 MG TAB PO PRN (01:30)
[2017-07-02] MEDS ORDERED: MAGNESIUM HYDROXIDE SUSP 30 ML CUP PO PRN (01:30)
[2017-07-02] MEDS ORDERED: MISC INFORMATION OTHER ONE (01:30)
[2017-07-02] MEDS ORDERED: LACTULOSE SYRUP 20 GM/30 ML CUP PO PRN (01:30)
[2017-07-02] MEDS ORDERED: MISCELLANEOUS NURSING INFORMATION XX SCH (01:30)
[2017-07-02] MEDS ORDERED: MORPHINE SULFATE 4 MG/ML INJ IV PUSH PRN (01:30)
[2017-07-02] MEDS ORDERED: SODIUM CHLORIDE 0.9% FLUSH 10 ML FLUSH IV FLUSH PRN (01:30)
[2017-07-02] MEDS ORDERED: DEXTROSE 50% IN WATER 50 ML VIAL(D50) IV PUSH PRN ×2 (01:30→20:30)
[2017-07-02] MEDS ORDERED: ACETAMINOPHEN 325 MG TAB PO PRN (01:30)
[2017-07-02] MEDS ORDERED: SODIUM CHLOR 0.9% 1000 ML INJ 1,000 ML IV ONE ×3 (01:30)
[2017-07-02] MEDS ORDERED: CHLORHEXIDINE GLUCONATE 2 % 1 PACK (2 CLOTHS) TOP PRN (01:30)
[2017-07-02] MEDS ORDERED: HEPARIN SODIUM - IV 10,000 UNITS/10 ML VIAL IV PUSH ONE (03:00)
[2017-07-02] MEDS ORDERED: HEPARIN-D5W 25,000 U/250 ML 250 ML IV PRN (03:00)
[2017-07-02 03:12] LABS: BILIRUBIN, URINE NEG (NEG); BLOOD, URINE MOD (NEG); GLUCOSE,URINE 1000 mg/dL (NEG); HYALINE CAST, URINE 16 /lpf (RARE); KETONE, URINE NEG (NEG); NITRITE,URINE NEG (NEG); PH, URINE 5.5 (5.0-8.5); SQUAMOUS EPITHELIAL CELL URINE <1 /hpf (0-5); URINE COLOR YELLOW (YELLW/STRAW); URINE LEUKOCYTE ESTERASE NEG (NEG)
[2017-07-02] MEDS ORDERED: Vancomycin Consult Pharmacy 1 EA OTHER SCH ×2 (03:30→10:45)
[2017-07-02 03:50] LABS: MEAN CORPUSCULAR HGB CONC 32.4 % (32.0-36.0); MEAN PLATELET VOLUME 7.4 FL (7.0-11.0); PLATELET COUNT 293 TH/MM3 (150-450); RED BLOOD COUNT 2.68 MIL/MM3 (4.50-5.90); RED CELL DISTRIBUTION WIDTH 18.3 % (11.6-17.2); WHITE BLOOD COUNT 11.9 TH/MM3 (4.0-11.0)
[2017-07-02 03:55] LABS: HEMATOCRIT 19.1 % (39.0-51.0); HEMOGLOBIN 6.2 GM/DL (13.0-17.0)
[2017-07-02] MEDS ORDERED: VANCOMYCIN INJ 2,500 MG in SODIUM CHLORID 0.9% 500 ML INJ 500 ML IV ONE (04:00)
[2017-07-02] MEDS ORDERED: RESP: ALBUTEROL 2.5 MG/IPRATROPIUM 0.5 MG NEB (SCH) INH (04:00)
[2017-07-02] MEDS: CHLORHEXIDINE GLUCONATE 2 % 1 PACK (2 CLOTHS) TOP SCH (04:00)
--- NOTE | 2017-07-02 04:12 | HHI.HP ---
[facility] Service Critical Care Medicine Primary Care Physician Arthur Cortez MD Admission Diagnosis DKA. Acute on chronic kidney disease. Hyponatremia. Diagnosis: Travel History International Travel<30 Days: No Contact w/Intl Traveler <30 Da: No Traveled to Known Affected Are: No History of Present Illness 57-year-old male presents complaining of fever, coughing congestion, nausea vomiting, abdominal pain. Patient states that the symptoms started 4 days ago. Patient states that he has poor appetite. Patient has history of diabetes and blood sugars been running high at home. Patient states the abdominal pain is cramping pain intermittent pain associate with vomiting. Patient states that abdominal pain localized to lower abdomen. Patient denies any pain radiation. Patient denies any dysuria or frequency. He admits his cough is intermittent and mild productive. Patient denies any chest pain. Patient denies any shortness of breath. Review of Systems Constitutional: COMPLAINS OF: Diaphoretic episodes, Fatigue, Fever, Chills, DENIES: Weight gain, Weight loss, Dizziness, Change in appetite, Night Sweats Endocrine: DENIES: Heat/cold intolerance, Polydipsia, Polyuria, Polyphagia Eyes: DENIES: Blurred vision, Diplopia, Eye inflammation, Eye pain, Vision loss , Photosensitivity, Double Vision Ears, nose, mouth, throat: DENIES: Tinnitus, Hearing loss, Vertigo, Nasal discharge, Oral lesions, Throat pain, Hoarseness, Ear Pain, Running Nose, Epistaxis, Sinus Pain, Toothache, Odynophagia Respiratory: DENIES: Apneas, Cough, Snoring, Wheezing, Hemoptysis, Sputum production, Shortness of breath Cardiovascular: DENIES: Chest pain, Palpitations, Syncope, Dyspnea on Exertion , PND, Lower Extremity Edema, Orthopnea, Claudication Gastrointestinal: DENIES: Abdominal pain, Black stools, Bloody stools, Constipation, Diarrhea, Nausea, Vomiting, Difficulty Swallowing, Anorexia Genitourinary: DENIES: Sexual dysfunction, Urinary frequency, Urinary incontinence, Urgency, Hematuria, Dysuria, Nocturia, Penile Discharge, Testicular Pain, Testicular Swelling Musculoskeletal: DENIES: Joint pain, Muscle aches, Stiffness, Joint Swelling, Back pain, Neck pain Integumentary: DENIES: Abnormal pigmentation, Nail changes, Pruritus, Rash Hematologic/lymphatic: DENIES: Bruising, Lymphadenopathy Immunologic/allergic: COMPLAINS OF: Eczema, DENIES: Urticaria Neurologic: DENIES: Abnormal gait, Headache, Localized weakness, Paresthesias, Seizures, Speech Problems, Tremor, Poor Balance Psychiatric: COMPLAINS OF: Anxiety, DENIES: Confusion, Mood changes, Depression , Hallucinations, Agitation, Suicidal Ideation, Homicidal Ideation, Delusions Past Family Social History Allergies: Coded Allergies: codeine (Unverified Allergy, Severe, Cardiac arrest, 03/04/17) *MDRO Multi-Drug Resistant Organism (Verified Adverse Reaction, Unknown, ) MRSA (blood)-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 Flomax (Tamsulosin HCl) 0.4 Mg Cap 0.4 Mg PO HS Reported Saline Flush (IV Flush) 0.9 % Inj 10 Ml IV FLUSH WEEKLY Oxycodone (Oxycodone HCl) 10 Mg Tab 10 Mg PO Q6H PRN Anti-Fungal Topical (Clotrimazole) 1% Cream 1 Applic TOPICAL DAILY Novolin N U-100 Inj (Insulin NPH (Human) (Isophane) Inj) 100 Unit/Ml Inj 35 Unit SQ DAILY Novolin N U-100 Inj (Insulin NPH (Human) (Isophane) Inj) 100 Unit/Ml Inj 25 Unit SQ HS Humulin R U-500 (Concentrate) Inj (Insulin Regular (Human) Concentrate Inj) 10, 000 Unit/20 Ml Vial Unknown Dose SQ ACHS Active Ordered Medications Current Medications Medications (Trade) Dose Ordered Sig/Tri Route PRN Reason Start Time Stop Time Status Last Admin Dose Admin Sodium Chloride 1,000 ml @ 250 mls/hr Q4H IV 07/02/17 00:25 Dextrose/Sodium Chloride 1,000 ml @ 200 mls/hr Q5H IV 07/02/17 00:25 Potassium Chloride 100 ml @ 100 mls/hr Q1H PRN IV SEE LABEL COMMENTS 07/02/17 00:30 Potassium Chloride 100 ml @ 50 mls/hr Q2H PRN IV SEE LABEL COMMENTS 07/02/17 00:30 Potassium Chloride 100 ml @ 100 mls/hr Q1H PRN IV SEE LABEL COMMENTS 07/02/17 00:30 Potassium Chloride 100 ml @ 100 mls/hr Q1H PRN IV SEE LABEL COMMENTS 07/02/17 00:30 Potassium Chloride 100 ml @ 50 mls/hr Q2H PRN IV SEE LABEL COMMENTS 07/02/17 00:30 Potassium Chloride 100 ml @ 50 mls/hr Q2H PRN IV SEE LABEL COMMENTS 07/02/17 00:30 Potassium Chloride 100 ml @ 50 mls/hr Q2H PRN IV SEE LABEL COMMENTS 07/02/17 00:30 Potassium Chloride 100 ml @ 50 mls/hr Q2H PRN IV SEE LABEL COMMENTS 07/02/17 00:30 Sodium Bicarbonate (Sodium Bicarbonate 8.4% Inj) 100 meq UNSCH PRN IV PUSH SEE LABEL COMMENTS 07/02/17 00:30 Sodium Bicarbonate (Sodium Bicarbonate 8.4% Inj) 50 meq UNSCH PRN IV PUSH SEE LABEL COMMENTS 07/02/17 00:30 Sodium Phosphate 15 mmol/Sodium Chloride 105 ml @ 25 mls/hr UNSCH PRN IV SEE LABEL COMMENTS 07/02/17 00:30 Dextrose (D50w (Vial) Inj) 50 ml UNSCH PRN IV PUSH HYPOGLYCEMIA-SEE COMMENTS 07/02/17 01:30 Glucagon (Glucagon Inj) 1 mg UNSCH PRN OTHER HYPOGLYCEMIA-SEE COMMENTS 07/02/17 01:30 Insulin Human Regular (NovoLIN R SUPPLEMENTAL SCALE) 1 ACHS SLIDING SCALE SQ 07/02/17 08:00 Sodium Chloride 1,000 ml @ 154 mls/hr Q6H30M IV 07/02/17 01:21 Sodium Chloride (NS Flush) 2 ml UNSCH PRN IV FLUSH FLUSH AFTER USING IV ACCESS 07/02/17 01:30 Sodium Chloride (NS Flush) 2 ml BID IV FLUSH 07/02/17 09:00 Acetaminophen (Tylenol) 650 mg Q6H PRN PO PAIN 1-5 AND/OR FEVER >101F 07/02/17 01:30 Morphine Sulfate (Morphine Inj) 2 mg Q2H PRN IV PUSH PAIN SCALE 6 TO 10 07/02/17 01:30 Famotidine (Pepcid Inj) 20 mg Q12HR IV PUSH 07/02/17 09:00 Midazolam HCl (Versed Inj) 2 mg Q1H PRN IV PUSH SEDATION 07/02/17 01:30 Ondansetron HCl (Zofran Inj) 4 mg Q6H PRN IV PUSH NAUSEA OR VOMITING 07/02/17 01:30 Albuterol/ Ipratropium (Duoneb Neb) 1 ampule Q6HR NEB INH 07/02/17 04:00 Albuterol/ Ipratropium (Duoneb Neb) 1 ampule Q2HR NEB PRN INH WHEEZING 07/02/17 01:30 Heparin Sodium (Porcine) (Heparin Inj) 5,000 units Q8HR SQ 07/02/17 06:00 Miscellaneous Information 1 Q361D XX 07/02/17 01:30 Chlorhexidine Gluconate (Chlorhexidine 2% Cloth) 3 pack Taper DAILY@04 TOP 07/02/17 04:00 06/28/18 03:59 Chlorhexidine Gluconate (Chlorhexidine 2% Cloth) 3 pack UNSCH PRN TOP HYGIENIC CARE 07/02/17 01:30 Senna/Docusate Sodium (Emelia-Colace) 1 tab BID PO 07/02/17 09:00 Magnesium Hydroxide (Milk Of Magnesia Liq) 30 ml Q12H PRN PO Mild constipation 07/02/17 01:30 Sennosides (Senokot) 17.2 mg Q12H PRN PO Moderate constipation 07/02/17 01:30 Bisacodyl (Dulcolax Supp) 10 mg DAILY PRN RECTAL SEVERE CONSITIPATION 07/02/17 01:30 Lactulose (Lactulose Liq) 30 ml DAILY PRN PO SEVERE CONSITIPATION 07/02/17 01:30 Chlorhexidine Gluconate (Peridex 0.12% Liq) 15 ml BID@08,20 MT 07/02/17 08:00 Insulin Human Regular 100 units/ Sodium Chloride 100 ml @ 1 mls/hr TITRATE PRN IV Blood Glucose Control 07/02/17 01:30 07/02/17 03:09 Dextrose (D50w (Vial) Inj) 50 ml UNSCH PRN IV PUSH SEE LABEL COMMENTS 07/02/17 01:30 Heparin Sodium/ Dextrose 250 ml @ 10 mls/hr TITRATE PRN IV Coagulation Management 07/02/17 03:00 Pharmacy Profile Note 0 ml @ 0 mls/hr UNSCH OTHER 07/02/17 03:30 Piperacillin Sod/ Tazobactam Sod 100 ml @ 200 mls/hr Q6H IV 07/02/17 04:00 Vancomycin HCl 2500 mg/Sodium Chloride 525 ml @ 250 mls/hr ONCE ONCE IV 07/02/17 04:00 07/02/17 06:05 Family History No family history significant for coronary artery disease - Dad: lung cancer - Mom- Unknown cancer 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 SKIN: Focused skin assessment warm/dry. HEAD: Normocephalic. EYES: No scleral icterus. No injection or drainage. Throat: Nonerythematous. NECK: Supple, trachea midline. No JVD or lymphadenopathy. No meningismus CARDIOVASCULAR: Regular rate and rhythm without murmurs, gallops, or rubs. RESPIRATORY: Breath sounds equal bilaterally. No accessory muscle use. GASTROINTESTINAL: Abdomen soft, non-tender, nondistended. MUSCULOSKELETAL: No cyanosis, bilateral chronic venous status changes, chronic stasis ulcerations. BACK: Nontender without obvious deformity. No CVA tenderness. Neurologic exam normal. Laboratory Laboratory Tests Test 07/01/17 22:00 07/02/17 00:10 07/02/17 02:35 07/02/17 03:20 White Blood Count 16.7 Red Blood Count 3.64 Hemoglobin 8.2 Hematocrit 26.0 Mean Corpuscular Volume 71.3 Mean Corpuscular Hemoglobin 22.6 Mean Corpuscular Hemoglobin Concent 31.8 Red Cell Distribution Width 18.6 Platelet Count 384 Mean Platelet Volume 7.5 Neutrophils (%) (Auto) 89.7 Lymphocytes (%) (Auto) 3.0 Monocytes (%) (Auto) 6.9 Eosinophils (%) (Auto) 0.0 Basophils (%) (Auto) 0.4 Neutrophils # (Auto) 15.0 Lymphocytes # (Auto) 0.5 Monocytes # (Auto) 1.1 Eosinophils # (Auto) 0.0 Basophils # (Auto) 0.1 CBC Comment DIFF FINAL Differential Comment Blood Urea Nitrogen 50 Creatinine 2.16 Random Glucose 532 Total Protein 7.8 Albumin 2.2 Calcium Level 8.5 Alkaline Phosphatase 178 Aspartate Amino Transf (AST/SGOT) 27 Alanine Aminotransferase (ALT/SGPT) 19 Total Bilirubin 0.5 Sodium Level 122 Potassium Level 4.2 Chloride Level 88 Carbon Dioxide Level 18.8 Anion Gap 15 Estimat Glomerular Filtration Rate 32 Lactic Acid Level 3.2 2.1 B-Hydroxybutyrate 0.22 Urine Color YELLOW Urine Turbidity HAZY Urine pH 5.5 Urine Specific [place] 1.019 Urine Protein 100 Urine Glucose (UA) 1000 Urine Ketones NEG Urine Occult Blood MOD Urine Nitrite NEG Urine Bilirubin NEG Urine Urobilinogen LESS THAN 2.0 Urine Leukocyte Esterase NEG Urine RBC 29 Urine WBC 3 Urine Squamous Epithelial Cells <1 Urine Hyaline Casts 16 Urine Granular Casts 22 Microscopic Urinalysis Comment CULT NOT INDICATED Date/Time Source Procedure Growth Status 07/01/17 22:00 Blood Line Aerobic Blood Culture Pending Received 07/01/17 22:00 Blood Line Anaerobic Blood Culture Pending Received 07/02/17 01:50 Sputum Endotracheal Gram Stain Pending Received 07/02/17 01:50 Sputum Endotracheal Sputum Culture Pending Received 07/02/17 02:35 Urine Catheterized Urine Urine Culture Pending Received Result Diagram: 07/01/17219907/01/172199 Imaging Last 24 hours Impressions Chest X-Ray 07/01/172121 Signed Impressions: Service Date/Time: Saturday, July 01, 2017 21:34 - CONCLUSION: Normal examination. Jacob Pike MD Septic Shock Reassessment Septic shock perfusion: reassessment completed Caprini VTE Risk Assessment Caprini VTE Risk Assessment: Mod/High Risk (score >= 2) Caprini Risk Assessment Model Point Value = 1 Point Value = 2 Point Value = 3 Point Value = 5 Age 41-60 Minor surgery BMI > 25 kg/m2 Swollen legs Varicose veins or History of unexplained or recurrent spontaneous Oral contraceptives or hormone replacement Sepsis (< 1 month) Serious lung disease, including pneumonia (< 1 month) Abnormal pulmonary function Acute myocardial infarction Congestive heart failure (< 1 month) History of inflammatory bowel disease Medical patient at bed rest Age 61-74 Arthroscopic surgery Major open surgery (> 45 min) Laparoscopic surgery (> 45 min) Malignancy Confined to bed (> 72 hours) Immobilizing plaster cast Central venous access Age >= 75 History of VTE Family history of VTE Factor V Leiden Prothrombin [id number] Lupus anticoagulant Anticardiolipin antibodies Elevated serum homocysteine Heparin-induced thrombocytopenia Other congenital or acquired thrombophilia Stroke (< 1 month) Elective arthroplasty Hip, pelvis, or leg fracture Acute spinal cord injury (< 1 month) Prophylaxis Regimen Total Risk Factor Score Risk Level Prophylaxis Regimen 0-1 Low Early ambulation 2 Moderate Order ONE of the following: *Sequential Compression Device (SCD) *Heparin 5000 units SQ BID 3-4 Higher Order ONE of the following medications: *Heparin 5000 units SQ TID *Enoxaparin/Lovenox 40 mg SQ daily (WT < 150 kg, CrCl > 30 mL/min) *Enoxaparin/Lovenox 30 mg SQ daily (WT < 150 kg, CrCl > 10-29 mL/min) *Enoxaparin/Lovenox 30 mg SQ BID (WT < 150 kg, CrCl > 30 mL/min) AND/OR *Sequential Compression Device (SCD) 5 or more Highest Order ONE of the following medications: *Heparin 5000 units SQ TID (Preferred with Epidurals) *Enoxaparin/Lovenox 40 mg SQ daily (WT < 150 kg, CrCl > 30 mL/min) *Enoxaparin/Lovenox 30 mg SQ daily (WT < 150 kg, CrCl > 10-29 mL/min) *Enoxaparin/Lovenox 30 mg SQ BID (WT < 150 kg, CrCl > 30 mL/min) AND *Sequential Compression Device (SCD) Assessment and Plan Assessment and Plan Hyperglycemic hyperosmolar nonketotic syndrome - Aggressive IV hydration - Insulin drip - Panculture - Troponins - EKG - CXR Cellulitis - Both cultures - Vancomycin and Zosyn - Follow-up cultures and sensitivity - Infectious disease consultation Anemia - Anemia of chronic disorder - Dilutional - Transfuse for hemoglobin less than 7 - Monitor H&H Non-STEMI - Heparin drip - Series of troponins and EKGs - 2-D echo - Cardiology consultation BPH - Flomax DVT GI prophylaxis - Heparin drip - Pepcid Critical Care: The total critical care time was 35 minutes. Time to perform other separately billable procedures was not included in the critical care time. Jassi Warren MD Jul 02, 2017 4:12 am
[2017-07-02 04:29] LABS: INTERNATIONAL NORMALIZED RATIO 1.3 RATIO; PROTHROMBIN TIME - PATIENT 12.7 SEC (9.8-11.6)
[2017-07-02] MEDS: PIPERACIL-TAZO 4.5 GM PREMIX 100 ML IV SCH ×4 (04:55→23:11)
[2017-07-02 04:57] LABS: BICARBONATE 20.1 MEQ/L (21.0-32.0); CALCIUM 7.4 MG/DL (8.5-10.1); CREATININE 1.71 MG/DL (0.60-1.30); MAGNESIUM 1.7 MG/DL (1.5-2.5); PHOSPHORUS 1.7 MG/DL (2.5-4.9)
[2017-07-02 05:08] LABS: TROPONIN I 2.47 NG/ML (0.02-0.05)
[2017-07-02 05:20] LABS: CALCIUM-PROTEIN CORRECTED 7.8 MG/DL (8.5-10.1); TOTAL PROTEIN 6.4 GM/DL (6.4-8.2)
[2017-07-02] MEDS ORDERED: HEPARIN SODIUM - SQ 10,000 UNITS/ML VIAL SQ SCH (06:00)
[2017-07-02] MEDS ORDERED: INSULIN NovoLIN REGULAR SUPPLEMENTAL SCALE SQ SCH (08:00)
[2017-07-02] MEDS: ONDANSETRON HCL 4 MG/2 ML VIAL IV PUSH PRN (09:33)
[2017-07-02] MEDS ORDERED: PROMETHAZINE INJ 25 MG/ML VIAL IM ONE (10:45)
--- NOTE | 2017-07-02 12:24 | MB ---
cc: CHARLY LOU DATE OF CONSULTATION 07/02/2017 REASON FOR CONSULTATION This is a 57-year-old white male with a four day history of fevers, nausea, vomiting, cough, abdominal pain and poor appetite. He complains of chest discomfort as well. He has mild shortness of breath. He was diagnosed with hypoglycemic, hyperosmolar nonketotic syndrome. His troponin is elevated. PAST MEDICAL HISTORY Positive for: 1. Poorly controlled insulin dependent diabetes mellitus. 2. Charcot feet 3. Chronic osteomyelitis 4. Hypertension 5. Bilateral fifth toe amputations. MEDICATIONS Include: 1. Humulin insulin 2. Antifungal topical clotrimazole 3. Oxycodone 4. Flomax 5. Cialis SOCIAL HISTORY The patient does not smoke, does not drink alcohol. FAMILY HISTORY Positive for heart disease. REVIEW OF SYSTEMS Otherwise negative. PHYSICAL EXAMINATION Blood pressure 146/80, pulse 93 and regular. HEENT: Negative. 2+ carotid upstrokes, no bruits. LUNGS: Clear. HEART: Regular with no murmur, gallop or rub. ABDOMEN: Soft. No bruits. EXTREMITIES: With the 1+ edema, chronic venostasis changes. 1+ pulses. NEUROLOGIC: Exam is grossly nonfocal. EKG was reviewed and showed a normal sinus rhythm, normal axis intervals, no acute changes. LABORATORY DATA Hemoglobin 8.2 and 6.2. Potassium 3.6, creatinine 1.71, AST/ALT normal. Troponin 2.47. DIAGNOSIS 1. Unspecified angina 2. Elevated troponin 3. Hyperglycemic hyperosmolar nonketotic syndrome. 4. Type 2 diabetes mellitus 5. Anemia 6. BPH DISPOSITION Mr. Lucas was found to have significant troponin elevation. We will continue therapy for his diabetes including aggressive hydration. We will obtain a myocardial perfusion study to evaluate for ischemia. We will check echocardiogram to evaluate his left ventricular function. He will be monitored on telemetry. I will follow him for cardiology during his hospitalization. MD SHOSHANA Daily/[place] /11:52 AM /12:01 PM NEYMAR
--- NOTE | 2017-07-02 13:36 | PD.ID.CON ---
History of Present Illness Service ID Consult Requested By Dr Warren Reason for Consult L foot DFI Primary Care Physician Arthur Cortez MD Diagnoses: History of Present Illness 57 yo male with poorly controlled diabetes and long standing neuropathy and Scharko joints presents with draining L foot ulcer since Thursday; foot is swollen , painful and red since Thursday He presented with fever, chills, temp up to 102 since Thursday and leukocytosis of 16 K, lactic acidosis of 3.2 and elevated troponine He also c/o productive cough with dark sputum His blood clx are growing GPC in chains anaerobic bottles 07/24 and wound clx G stain also has GPC in pairs, chains along with many WBC Review of Systems Constitutional: COMPLAINS OF: Fatigue, Fever, Chills Respiratory: COMPLAINS OF: Cough, Sputum production, Shortness of breath Neurologic: COMPLAINS OF: Abnormal gait Except as stated in HPI: all other systems reviewed are Neg Past Family Social History Allergies: Coded Allergies: codeine (Unverified Allergy, Severe, Cardiac arrest, 03/04/17) *MDRO Multi-Drug Resistant Organism (Verified Adverse Reaction, Unknown, ) 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 No ETOH. No Illicit Drugs. Physical Exam Vital Signs Vital Signs Date Time Temp Pulse Resp B/P (MAP) Pulse Ox O2 Delivery O2 Flow Rate FiO2 07/02/17 12:27 91 18 144/78 (100) 98 Room Air 07/02/17 12:24 98.1 94 18 129/71 99 07/02/17 10:30 93 18 146/80 (102) 100 Nasal Cannula 2.00 07/02/17 10:29 98.0 92 18 146/80 100 07/02/17 10:05 97.8 90 18 131/74 100 07/02/17 09:45 93 18 118/90 (99) 100 Nasal Cannula 2.00 07/02/17 08:46 98.0 87 18 118/64 99 07/02/17 07:45 97.9 91 18 136/79 98 07/02/17 07:24 98.2 93 18 141/75 90 07/02/17 07:05 98.2 94 18 141/75 (97) 100 Nasal Cannula 2.00 07/02/17 06:35 98.0 97 18 141/75 (97) 100 07/02/17 06:20 98.3 95 18 156/72 (100) 100 Nasal Cannula 2.00 07/02/17 05:37 100 20 156/72 (100) 99 Nasal Cannula 2.00 07/02/17 04:27 98.6 07/02/17 03:49 95 18 126/66 (86) 100 Nasal Cannula 2.00 07/02/17 02:16 102 20 165/85 (111) 100 Nasal Cannula 2.00 07/01/17 22:26 119 20 139/64 (89) 100 Nasal Cannula 2.00 07/01/17 21:20 102.7 127 24 135/70 (91) 100 Room Air 07/01/17 20:58 22 07/01/17 20:47 101.1 132 20 144/83 (103) 96 Room Air Physical Exam CONSTITUTIONAL/GENERAL: This is an adequately nourished patient, in no apparent distress. Appears sick TUBES/LINES/DRAINS: SKIN: No jaundice, rashes, or lesions. Skin temperature appropriate. Not diaphoretic. HEAD: Atraumatic. Normocephalic. EYES: Pupils equal and round and reactive. Extraocular motions intact. No scleral icterus. No injection or drainage. Fundi not examined. ENT: Hearing grossly normal. Nose without bleeding or purulent drainage. Oral mucosae without visible erythema, exudates, masses, or lesions. NECK: Trachea midline. Supple, nontender. CARDIOVASCULAR: Regular rate and rhythm without murmurs, gallops, or rubs. No JVD. Peripheral pulses symmetric. RESPIRATORY/CHEST: Symmetric, unlabored respirations. Clear to auscultation. Breath sounds equal bilaterally. No wheezes, rales, or rhonchi. GASTROINTESTINAL: Abdomen soft, non-tender, nondistended. No hepato-splenomegaly , or palpable masses. No guarding. Bowel sounds present. GENITOURINARY: Without palpable bladder distension. MUSCULOSKELETAL: Extremities without clubbing, cyanosis, Marked b/l feet deformities, R foot sp well healed 4-5 amputations L foot with marked edema, erythema up to the ankle Large ulceration draining thick castrejon coloured odorless pus on L lateral malelous No joint tenderness or effusion noted. No calf tenderness. No mottling or clubbing. LYMPHATICS: No palpable cervical or supraclavicular adenopathy. NO inguinal lymphadenopathy NEUROLOGICAL: Awake and alert. Motor and sensory grossly within normal limits. Follows commands. Clear speech. Moves all extremities. PSYCHIATRIC: No obvious anxiety/depression. no apparent hallucinations or other psychotic thought process. Laboratory Laboratory Tests Test 07/01/17 22:00 07/02/17 00:10 07/02/17 02:35 07/02/17 03:20 White Blood Count 16.7 11.9 Red Blood Count 3.64 2.68 Hemoglobin 8.2 6.2 Hematocrit 26.0 19.1 Mean Corpuscular Volume 71.3 71.0 Mean Corpuscular Hemoglobin 22.6 23.0 Mean Corpuscular Hemoglobin Concent 31.8 32.4 Red Cell Distribution Width 18.6 18.3 Platelet Count 384 293 Mean Platelet Volume 7.5 7.4 Neutrophils (%) (Auto) 89.7 Lymphocytes (%) (Auto) 3.0 Monocytes (%) (Auto) 6.9 Eosinophils (%) (Auto) 0.0 Basophils (%) (Auto) 0.4 Neutrophils # (Auto) 15.0 Lymphocytes # (Auto) 0.5 Monocytes # (Auto) 1.1 Eosinophils # (Auto) 0.0 Basophils # (Auto) 0.1 CBC Comment DIFF FINAL Differential Comment Blood Urea Nitrogen 50 44 Creatinine 2.16 1.71 Random Glucose 532 296 Total Protein 7.8 6.4 Albumin 2.2 Calcium Level 8.5 7.4 Alkaline Phosphatase 178 Aspartate Amino Transf (AST/SGOT) 27 Alanine Aminotransferase (ALT/SGPT) 19 Total Bilirubin 0.5 Sodium Level 122 130 Potassium Level 4.2 3.6 Chloride Level 88 100 Carbon Dioxide Level 18.8 20.1 Anion Gap 15 10 Estimat Glomerular Filtration Rate 32 41 Lactic Acid Level 3.2 2.1 B-Hydroxybutyrate 0.22 Urine Color YELLOW Urine Turbidity HAZY Urine pH 5.5 Urine Specific [place] 1.019 Urine Protein 100 Urine Glucose (UA) 1000 Urine Ketones NEG Urine Occult Blood MOD Urine Nitrite NEG Urine Bilirubin NEG Urine Urobilinogen LESS THAN 2.0 Urine Leukocyte Esterase NEG Urine RBC 29 Urine WBC 3 Urine Squamous Epithelial Cells <1 Urine Hyaline Casts 16 Urine Granular Casts 22 Microscopic Urinalysis Comment CULT NOT INDICATED Phosphorus Level 1.7 Magnesium Level 1.7 Protein Corrected Calcium 7.8 Troponin I 2.47 Test 07/02/17 04:00 07/02/17 04:24 Prothrombin Time 12.7 Prothromb Time International Ratio 1.3 Activated Partial Thromboplast Time 27.8 Lactic Acid Level 2.5 Date/Time Source Procedure Growth Status 07/01/17 22:00 Blood Line Aerobic Blood Culture - Preliminary NO GROWTH IN 1 DAY Resulted 07/01/17 22:00 Anaerobic Blood Culture - Preliminary Gram Positive Cocci Resulted 07/02/17 01:50 Sputum Endotracheal Gram Stain - Final Resulted 07/02/17 01:50 Sputum Endotracheal Sputum Culture Pending Resulted 07/02/17 02:35 Urine Catheterized Urine Urine Culture Pending Received 07/02/17 04:50 Wound Foot Gram Stain - Final Resulted 07/02/17 04:50 Wound Foot Wound Culture Pending Resulted Result Diagram: 07/02/17 0320 07/02/17 0320 Imaging Last Impressions Chest X-Ray 07/01/172121 Signed Impressions: Service Date/Time: Saturday, July 01, 2017 21:34 - CONCLUSION: Normal examination. Jacob Pike MD Assessment and Plan Assessment and Plan Sepsis from infected L foot, gram positive L foot DFI and likely osteo given the chronicity of the problem NSTEMI ARF Cough, can not exclude denise broncho pneumonaia, GNR on the sputum Gstain cont zosyn, vanco MRI L foot podiatry consult Coty Wolf MD Jul 02, 2017 13:36
[2017-07-02] MEDS: INSULIN NovoLIN REGULAR SUPPLEMENTAL SCALE SQ SCH ×2 (14:36→17:00)
[2017-07-02] MEDS ORDERED: REGADENOSON INJ 0.4 MG/5 ML SYR ONE (14:52)
[2017-07-02] MEDS ORDERED: SODIUM PHOSPHATE INJ 30 MMOL in SODIUM CHLOR 0.9% 250 ML INJ 240 ML IV PRN (16:30)
[2017-07-02] MEDS ORDERED: MAGNESIUM SULFATE INJ 2 GM in SODIUM CHLORIDE 0.9% INJ 96 ML IV PRN (16:30)
[2017-07-02] MEDS ORDERED: MAGNESIUM OXIDE 400 MG TAB PO PRN (16:30)
[2017-07-02] MEDS ORDERED: MAGNESIUM SULFATE INJ 4 GM in SODIUM CHLORIDE 0.9% INJ 92 ML IV PRN (16:30)
[2017-07-02] MEDS ORDERED: POTASSIUM PHOSPHATE MONOBASIC 500 MG TAB PO PRN (16:30)
[2017-07-02] MEDS ORDERED: POTASSIUM PHOSPHATE MONOBASIC 500 MG TAB PO/TUBE PRN (16:30)
[2017-07-02] MEDS ORDERED: POTASSIUM CHLORIDE 25 MEQ EFFERVESCENT TAB PO PRN (16:30)
[2017-07-02] MEDS ORDERED: POTASSIUM PHOSPHATE INJ 30 MMOL in SODIUM CHLOR 0.9% 250 ML INJ 250 ML IV PRN (16:30)
[2017-07-02] MEDS: INSULIN DETEMIR 100 UNITS/ML VIAL SQ SCH ×2 (16:36→17:01)
[2017-07-02 17:12] LABS: AUTOMATED NEUTROPHIL # 12.2 TH/MM3 (1.8-7.7); BASOPHIL % 0.3 % (0.0-2.0); EOSINOPHIL # 0.1 TH/MM3 (0-0.4); EOSINOPHIL % 0.6 % (0.0-4.0); HEMATOCRIT 25.1 % (39.0-51.0); HEMOGLOBIN 8.3 GM/DL (13.0-17.0); LYMPH % 5.6 % (9.0-44.0); LYMPHOCYTE # 0.8 TH/MM3 (1.0-4.8); MEAN CELL VOLUME 73.1 FL (80.0-100.0); MEAN CORPUSCULAR HEMOGLOBIN 24.1 PG (27.0-34.0); MEAN PLATELET VOLUME 7.5 FL (7.0-11.0); MONO % 7.1 % (0.0-8.0); NEUT % 86.4 % (16.0-70.0); PLATELET COUNT 390 TH/MM3 (150-450); RED BLOOD COUNT 3.43 MIL/MM3 (4.50-5.90); RED CELL DISTRIBUTION WIDTH 20.1 % (11.6-17.2); WHITE BLOOD COUNT 14.1 TH/MM3 (4.0-11.0)
[2017-07-02 17:32] LABS: BICARBONATE 20.3 MEQ/L (21.0-32.0); CALCIUM 7.8 MG/DL (8.5-10.1); CREATININE 1.43 MG/DL (0.60-1.30)
[2017-07-02 17:52] LABS: TROPONIN I 3.05 NG/ML (0.02-0.05)
[2017-07-02 18:37] LABS: HEMOGLOBIN A1C 9.8 % (4.3-6.0)
--- NOTE | 2017-07-02 19:33 | EKG ---
Date Performed: 07/02/2017 Time Performed: 03:22:22 PTAGE: 57 years EKG: Sinus rhythm WITH OCCASIONAL VENTRICULAR PREMATURE COMPLEXES MODERATE ST DEPRESSION ABNORMAL ECG PREVIOUS TRACING : 09/27/2015 08.46 SINCE PRIOR TRACING PATIENT DEVELOPED NEW ST SEGMENT MONTIEL ES INFERIORALY AND LATERALLY. Clinical correlation is recommended DOCTOR: Laura Borden Interpretating Date/Time 07/02/2017 19:32:09
--- NOTE | 2017-07-02 19:37 | EKG ---
Date Performed: 07/02/2017 Time Performed: 07:53:33 PTAGE: 57 years EKG: Sinus rhythm NONSPECIFIC ST & T-WAVE ABNORMALITY BORDERLINE ECG PREVIOUS TRACING 07/02/17 @ 03.22 SINCE PRIOR TRACING PREMATURE ATRIAL VENTRICULAR CONTRACTIONS HAS RESOLVED. THERE HAS BEEN SOME IMPROVEMENT IN THE NONSPECIFIC ST T-WAVE CHANGES. Clinical correla tion is recommended DOCTOR: Laura Borden Interpretating Date/Time 07/02/2017 19:36:09
[2017-07-02 19:58] LABS: MAGNESIUM 1.7 MG/DL (1.5-2.5)
--- NOTE | 2017-07-02 20:00 | RADRPT ---
EXAM DATE/TIME: 07/02/2017 19:12 [facility] COMPARISON: No previous studies available for comparison. INDICATIONS : Possible infection. MEDICAL HISTORY : Hypertension. Cardiovascular disease. Diabetes. SURGICAL HISTORY : Appendectomy. Left and right foot surgeries. ENCOUNTER: Initial ACUITY: 1 day PAIN SCORE: 9/10 LOCATION: Left foot, lateral FINDINGS: Previous fifth toe and fifth metatarsal resection. Some dystrophic appearing calcification in the danial gical bed at the level of the proximal fifth metatarsal. There is questionable erosion along the late ral aspect of the fourth metatarsal head. Otherwise bones of the left foot have normal morphology. No subluxations are seen. CONCLUSION: Possible lateral erosion of the fourth metatarsal head. Patient is scheduled for MRI. No other acute bony abnormalities are demonstrated. Patient is status post amputation of the fifth toe and resection of the fifth metatarsal. Drake Jarvis MD on July 02, 2017 at 19:56 Board Certified Radiologist. This report was verified electronically.
--- NOTE | 2017-07-02 20:13 | MG ---
cc: KRISTEN ODOM MD Lab No: Date: 07/02/17 Age: Sex: M Race: DATE OF [address] Chaves. MEDICAL HISTORY History of coronary artery disease, cardiac stent, hypertension, hernia repair, diabetes mellitus, anxiety, alcohol use. Caffeine use, fever, fatigue, MRSA, herniorrhaphy, excessive sweating. He presented with fever, coughing, vomiting, nausea, abdominal pain started five days ago with poor appetite. MEDICATIONS Piperacillin Vancomycin Reglan DESCRIPTION Background activity is 8-9 Hz alpha located posteriorly bilateral and symmetrical. There is excessive muscle and movement artifact during the recording. During the recording, there is dropout of the background rhythm replaced by theta activity and appearance of sleep spindles and K complexes as transitioned to stage II sleep. Hyperventilation and photic stimulation were omitted. There were no electrographic seizures or epileptiform discharges noted during the recording. INTERPRETATION This is an awake, drowsy and asleep EEG. There is excessive movement muscle and eye blinking artifact. There were no electrographic seizures or epileptiform discharges noted during the recording. Clinical correlation is recommended. MD YASMIN Skinner/ /7:12 PM /8:04 PM [email or web address]
[2017-07-02] MEDS: INSULIN HUMAN NPH 1,000 UNITS/10 ML VIAL SQ SCH (20:45)
[2017-07-02] MEDS: INSULIN ASPART SUPPLEMENTAL SCALE SQ SCH (20:45)
[2017-07-02] MEDS: SODIUM CHLORIDE 0.9% FLUSH 10 ML FLUSH IV FLUSH SCH (20:46)
[2017-07-02] MEDS: DOCUSATE SODIUM 50 MG/SENNA 8.6 MG TAB PO SCH (20:47)
[2017-07-02] MEDS: FAMOTIDINE 20 MG/2 ML VIAL IV PUSH SCH (20:47)
--- NOTE | 2017-07-02 21:53 | PD.CONS ---
History of Present Illness Service Foot and Ankle Surgery Consult Requested By Dr. 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 Patient states he has been experiencing N,V,F,Ch for the past 4 days in addition to cough with reported dark sputum and chest pain. Patient presented to the ED with fever, chills, temp of 102, WBC 16, lactic acidosis of 3.2 and elevated troponin. Blood cultures are positive for GPC in chains. Wound cultures are growing GPC in pairs with many WBC. Patient is combative bedside and not cooperative. He states he will have XRays and an MRI possibly tomorrow if he feels like it. He will need to see how he is feeling. He is upset because he was told his last study would not require him to leave his bed and he does not want to leave his bed. 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; (foot)-07/26/16 Uncoded Allergies: NOWAK (Adverse Reaction, Unknown, FLU LIKE SYMPTOMS, 11/25/16) NOWAK HAIR REMOVAL CREAM Past Medical History as reported in HPI Past Surgical History Bilateral foot amputations/debridements 2/2 infections Active Ordered Medications Current Medications Medications (Trade) Dose Ordered Sig/Tri Route Start Time Stop Time Status Last Admin (Sodium Bicarbonate 8.4% Inj) 100 meq UNSCH PRN IV PUSH 07/02/17 00:30 (Sodium Bicarbonate 8.4% Inj) 50 meq UNSCH PRN IV PUSH 07/02/17 00:30 Sodium Chloride 1,000 ml @ 125 mls/hr Q8H IV 07/02/17 01:21 07/02/17 16:02 (NS Flush) 2 ml UNSCH PRN IV FLUSH 07/02/17 01:30 (NS Flush) 2 ml BID IV FLUSH 07/02/17 09:00 07/02/17 20:46 (Tylenol) 650 mg Q6H PRN PO 07/02/17 01:30 (Morphine Inj) 2 mg Q2H PRN IV PUSH 07/02/17 01:30 (Pepcid Inj) 20 mg Q12HR IV PUSH 07/02/17 09:00 (Versed Inj) 2 mg Q1H PRN IV PUSH 07/02/17 01:30 (Zofran Inj) 4 mg Q6H PRN IV PUSH 07/02/17 01:30 07/02/17 09:33 (Duoneb Neb) 1 ampule Q2HR NEB PRN INH 07/02/17 01:30 07/02/17 05:00 (Heparin Inj) 5,000 units Q8HR SQ 07/02/17 06:00 Future Hold Miscellaneous Information 1 Q361D XX 07/02/17 01:30 (Chlorhexidine 2% Cloth) 3 pack Taper DAILY@04 TOP 07/02/17 04:00 06/28/18 03:59 (Chlorhexidine 2% Cloth) 3 pack UNSCH PRN TOP 07/02/17 01:30 (Emelia-Colace) 1 tab BID PO 07/02/17 09:00 (Senokot) 17.2 mg Q12H PRN PO 07/02/17 01:30 (Dulcolax Supp) 10 mg DAILY PRN RECTAL 07/02/17 01:30 (Lactulose Liq) 30 ml DAILY PRN PO 07/02/17 01:30 (Peridex 0.12% Liq) 15 ml BID@08,20 MT 07/02/17 08:00 Piperacillin Sod/ Tazobactam Sod 100 ml @ 200 mls/hr Q6H IV 07/02/17 04:00 07/02/17 16:28 (Lotrimin 1% Cream) 1 applic DAILY TOPICAL 07/02/17 09:00 (Roxicodone) 10 mg Q6H PRN PO 07/02/17 04:15 07/02/17 16:26 (Flomax) 0.4 mg HS PO 07/02/17 21:00 Vancomycin HCl 2000 mg/Sodium Chloride 520 ml @ 250 mls/hr Q24H IV 07/03/17 06:00 Miscellaneous Information SPECIFIC LAB TO BE DRAWN:VANCOMY... ONCE ONCE .XX 07/05/17 05:45 07/05/17 05:46 Pharmacy Profile Note 0 ml @ 0 mls/hr UNSCH OTHER 07/02/17 10:45 Potassium Chloride 100 ml @ 50 mls/hr Q2H PRN IV 07/02/17 16:30 (K-Lyte Cl Eff) 50 meq UNSCH PRN PO 07/02/17 16:30 Potassium Chloride 100 ml @ 25 mls/hr UNSCH PRN IV 07/02/17 16:30 Potassium Chloride 100 ml @ 50 mls/hr Q2H PRN IV 07/02/17 16:30 Magnesium Sulfate 4 gm/Sodium Chloride 100 ml @ 50 mls/hr UNSCH PRN IV 07/02/17 16:30 (Mag-Ox) 800 mg UNSCH PRN PO 07/02/17 16:30 Magnesium Sulfate 2 gm/Sodium Chloride 100 ml @ 50 mls/hr UNSCH PRN IV 07/02/17 16:30 (K-Phos) 2,000 mg Q4H PRN PO 07/02/17 16:30 Sodium Phosphate 30 mmol/Sodium Chloride 250 ml @ 42 mls/hr UNSCH PRN IV 07/02/17 16:30 07/02/17 18:34 (K-Phos) 2,000 mg UNSCH PRN PO/TUBE 07/02/17 16:30 Potassium Phosphate 30 mmol/ Sodium Chloride 260 ml @ 42 mls/hr UNSCH PRN IV 07/02/17 16:30 Potassium Chloride 100 ml @ 25 mls/hr Q4H PRN IV 07/02/17 16:45 (NovoLIN N INJ) 25 units HS SQ 07/02/17 21:00 07/02/17 20:45 (NovoLIN N INJ) 35 units DAILY SQ 07/03/17 09:00 (D50w (Vial) Inj) 50 ml UNSCH PRN IV PUSH 07/02/17 20:30 (Glucagon Inj) 1 mg UNSCH PRN OTHER 07/02/17 20:30 (NovoLOG SUPPLEMENTAL SCALE) 1 ACHS SLIDING SCALE SQ 07/02/17 21:00 07/02/17 20:45 Physical Exam Vital Signs Vital Signs Date Time Temp Pulse Resp B/P (MAP) Pulse Ox O2 Delivery O2 Flow Rate FiO2 07/02/17 18:00 115 07/02/17 17:26 18 07/02/17 16:00 109 07/02/17 16:00 99.0 109 21 156/78 (104) 97 07/02/17 14:00 99.0 106 19 136/78 (97) 96 07/02/17 14:00 106 07/02/17 12:27 91 18 144/78 (100) 98 Room Air 07/02/17 12:24 98.1 94 18 129/71 99 07/02/17 10:30 93 18 146/80 (102) 100 Nasal Cannula 2.00 07/02/17 10:29 98.0 92 18 146/80 100 07/02/17 10:05 97.8 90 18 131/74 100 07/02/17 09:45 93 18 118/90 (99) 100 Nasal Cannula 2.00 07/02/17 08:46 98.0 87 18 118/64 99 07/02/17 07:45 97.9 91 18 136/79 98 07/02/17 07:24 98.2 93 18 141/75 90 07/02/17 07:05 98.2 94 18 141/75 (97) 100 Nasal Cannula 2.00 07/02/17 06:35 98.0 97 18 141/75 (97) 100 07/02/17 06:20 98.3 95 18 156/72 (100) 100 Nasal Cannula 2.00 07/02/17 05:37 100 20 156/72 (100) 99 Nasal Cannula 2.00 07/02/17 04:27 98.6 07/02/17 03:49 95 18 126/66 (86) 100 Nasal Cannula 2.00 07/02/17 02:16 102 20 165/85 (111) 100 Nasal Cannula 2.00 07/01/17 22:26 119 20 139/64 (89) 100 Nasal Cannula 2.00 Physical Exam GENERAL: In no acute distress. SKIN: Bilateral LE ulcers. HEAD: Atraumatic. Normocephalic. No temporal or scalp tenderness. EYES: Pupils equal round and reactive. ENT: Airway patent. RESPIRATORY: Labored breathing with expectorant coughing. MUSCULOSKELETAL: Bilateral LE foot deformity noted. NEUROLOGICAL: Awake and alert. Normal speech. Lower Extremity Physical Exam Vasc: DP/PT non palpable 2/2 edema bilateral foot. WATER SERVER under 3 secs to digits present bilateral foot. Pitting edema noted to right foot (+1). Neuro: Gross sensation/pin point sensation decreased. No hyperalgesia noted. Derm: Left foot submet 4,5 ulcer with (+) purulent drainage, (+) probe to bone , (+) undermining and tracking (+) fluctuance (-) crepitus, malodor. Lateral ankle and foot ulcer x3 with fibrogranular base weeping serous drainage and periwound erythema. Right foot plantar midfoot ulcer stable in nature with fibrogranular base and hyperkeratotic borders. MSK: Equinus contracture noted at bilateral ankle with C shaped varus deformity. Digital amputations noted. Right fifth digit amputation noted. No tenderness to palpation to bilateral foot. Laboratory Laboratory Tests Test 07/01/17 22:00 07/02/17 00:10 07/02/17 02:35 07/02/17 03:20 White Blood Count 16.7 11.9 Red Blood Count 3.64 2.68 Hemoglobin 8.2 6.2 Hematocrit 26.0 19.1 Mean Corpuscular Volume 71.3 71.0 Mean Corpuscular Hemoglobin 22.6 23.0 Mean Corpuscular Hemoglobin Concent 31.8 32.4 Red Cell Distribution Width 18.6 18.3 Platelet Count 384 293 Mean Platelet Volume 7.5 7.4 Neutrophils (%) (Auto) 89.7 Lymphocytes (%) (Auto) 3.0 Monocytes (%) (Auto) 6.9 Eosinophils (%) (Auto) 0.0 Basophils (%) (Auto) 0.4 Neutrophils # (Auto) 15.0 Lymphocytes # (Auto) 0.5 Monocytes # (Auto) 1.1 Eosinophils # (Auto) 0.0 Basophils # (Auto) 0.1 CBC Comment DIFF FINAL Differential Comment Blood Urea Nitrogen 50 44 Creatinine 2.16 1.71 Random Glucose 532 296 Total Protein 7.8 6.4 Albumin 2.2 Calcium Level 8.5 7.4 Alkaline Phosphatase 178 Aspartate Amino Transf (AST/SGOT) 27 Alanine Aminotransferase (ALT/SGPT) 19 Total Bilirubin 0.5 Sodium Level 122 130 Potassium Level 4.2 3.6 Chloride Level 88 100 Carbon Dioxide Level 18.8 20.1 Anion Gap 15 10 Estimat Glomerular Filtration Rate 32 41 Lactic Acid Level 3.2 2.1 B-Hydroxybutyrate 0.22 Urine Color YELLOW Urine Turbidity HAZY Urine pH 5.5 Urine Specific [place] 1.019 Urine Protein 100 Urine Glucose (UA) 1000 Urine Ketones NEG Urine Occult Blood MOD Urine Nitrite NEG Urine Bilirubin NEG Urine Urobilinogen LESS THAN 2.0 Urine Leukocyte Esterase NEG Urine RBC 29 Urine WBC 3 Urine Squamous Epithelial Cells <1 Urine Hyaline Casts 16 Urine Granular Casts 22 Microscopic Urinalysis Comment CULT NOT INDICATED Phosphorus Level 1.7 Magnesium Level 1.7 Protein Corrected Calcium 7.8 Troponin I 2.47 Test 07/02/17 04:00 07/02/17 04:24 07/02/17 13:00 07/02/17 16:50 Prothrombin Time 12.7 Prothromb Time International Ratio 1.3 Activated Partial Thromboplast Time 27.8 27.4 Lactic Acid Level 2.5 1.4 Nasal Screen MRSA (PCR) MRSA NOT DETECTED White Blood Count 14.1 Red Blood Count 3.43 Hemoglobin 8.3 Hematocrit 25.1 Mean Corpuscular Volume 73.1 Mean Corpuscular Hemoglobin 24.1 Mean Corpuscular Hemoglobin Concent 33.0 Red Cell Distribution Width 20.1 Platelet Count 390 Mean Platelet Volume 7.5 Neutrophils (%) (Auto) 86.4 Lymphocytes (%) (Auto) 5.6 Monocytes (%) (Auto) 7.1 Eosinophils (%) (Auto) 0.6 Basophils (%) (Auto) 0.3 Neutrophils # (Auto) 12.2 Lymphocytes # (Auto) 0.8 Monocytes # (Auto) 1.0 Eosinophils # (Auto) 0.1 Basophils # (Auto) 0.0 CBC Comment DIFF FINAL Differential Comment Blood Urea Nitrogen 37 Creatinine 1.43 Random Glucose 239 Calcium Level 7.8 Sodium Level 132 Potassium Level 3.6 Chloride Level 102 Carbon Dioxide Level 20.3 Anion Gap 10 Estimat Glomerular Filtration Rate 51 Phosphorus Level 2.1 Magnesium Level 1.7 Total Creatine Kinase 114 Creatine Kinase MB 3.2 Troponin I 3.05 Date/Time Source Procedure Growth Status 07/02/17 16:50 Blood Peripheral Aerobic Blood Culture Pending Received 07/02/17 16:50 Blood Peripheral Anaerobic Blood Culture Pending Received 07/02/17 01:50 Sputum Endotracheal Gram Stain - Final Resulted 07/02/17 01:50 Sputum Endotracheal Sputum Culture Pending Resulted 07/02/17 02:35 Urine Catheterized Urine Urine Culture Pending Received 07/02/17 04:50 Wound Foot Gram Stain - Final Resulted 07/02/17 04:50 Wound Foot Wound Culture Pending Resulted Result Diagram: 07/02/17 1650 07/02/17 1650 Imaging Last Impressions Foot X-Ray 07/02/17 0000 Signed Impressions: Service Date/Time: June 19:12 - CONCLUSION: Possible lateral erosion of the fourth metatarsal head. Patient is scheduled for MRI. No other acute bony abnormalities are demonstrated. Patient is status post amputation of the fifth toe and resection of the fifth metatarsal. Drake Jarvis MD Chest X-Ray 07/01/172121 Signed Impressions: Service Date/Time: Saturday, July 01, 2017 21:34 - CONCLUSION: Normal examination. Jacob Pike MD Assessment and Plan Assessment and Plan 57 year old male with left foot infection with possible abscess and possible OM Patient examined and evaluated Blood Culture/Wound culture (+) GPC MRI Left foot Arterial Doppler/KRISTIE Discussed severity of infection with patient Refusing studies/intervention at this time Patient did have Xrays done however nurse called me to inform he does not want MRI done and he will decide how he feeling tomorrow - same sentiments where described to me bedside Informed patient of the severity of infection/sepsis and that intervention with appropriate studies was necessary - patient is still refusing Discussed case with Dr. Wolf Will re evaluate patient tomorrow and hopefully he is compliant with MRI and vascular studies Continue IV Abx therapy If patient is onboard with surgical intervention - Incision and Drainage with possible metatarsal resection possible tomorrow depending on MRI and vascular studies NPO after midnight for possible surgical intervention If patient continues to refuse treatment would consider palliative care consult Slime Gonzales DPM Jul 02, 2017 21:53
[2017-07-02] MEDS: TAMSULOSIN HCL 0.4 MG CAP PO SCH (23:10)
[2017-07-03] VITALS (14 sets, daily range): BP systolic 93–136; BP diastolic 54–69; PULSE 94–138; RESP 21–34; TEMP 96.8–99.7; O2SAT 89–96
[2017-07-03] MEDS: SODIUM CHLOR 0.9% 1000 ML INJ 1,000 ML IV SCH ×3 (00:01→23:09)
[2017-07-03 03:55] LABS: AUTOMATED NEUTROPHIL # 10.2 TH/MM3 (1.8-7.7); BASOPHIL % 0.2 % (0.0-2.0); EOSINOPHIL # 0.3 TH/MM3 (0-0.4); EOSINOPHIL % 2.1 % (0.0-4.0); HEMATOCRIT 23.5 % (39.0-51.0); HEMOGLOBIN 7.8 GM/DL (13.0-17.0); LYMPH % 8.3 % (9.0-44.0); MEAN CELL VOLUME 72.6 FL (80.0-100.0); MEAN CORPUSCULAR HEMOGLOBIN 24.1 PG (27.0-34.0); MEAN CORPUSCULAR HGB CONC 33.2 % (32.0-36.0); MEAN PLATELET VOLUME 7.3 FL (7.0-11.0); MONO % 7.2 % (0.0-8.0); MONOCYTE # 0.9 TH/MM3 (0-0.9); NEUT % 82.2 % (16.0-70.0); PLATELET COUNT 342 TH/MM3 (150-450); RED BLOOD COUNT 3.24 MIL/MM3 (4.50-5.90); RED CELL DISTRIBUTION WIDTH 20.1 % (11.6-17.2); WHITE BLOOD COUNT 12.5 TH/MM3 (4.0-11.0)
[2017-07-03] MEDS: CHLORHEXIDINE GLUCONATE 2 % 1 PACK (2 CLOTHS) TOP SCH (04:00)
[2017-07-03 04:10] LABS: INTERNATIONAL NORMALIZED RATIO 1.2 RATIO
[2017-07-03 04:46] LABS: ALBUMIN 1.5 GM/DL (3.4-5.0); BICARBONATE 21.4 MEQ/L (21.0-32.0); CALCIUM 7.3 MG/DL (8.5-10.1); CREATININE 1.47 MG/DL (0.60-1.30); MAGNESIUM 1.8 MG/DL (1.5-2.5); PHOSPHORUS 2.6 MG/DL (2.5-4.9); TOTAL BILIRUBIN ADULT 0.4 MG/DL (0.2-1.0); TOTAL PROTEIN 5.8 GM/DL (6.4-8.2)
[2017-07-03] MEDS: PIPERACIL-TAZO 4.5 GM PREMIX 100 ML IV SCH ×4 (06:13→20:00)
[2017-07-03] MEDS: VANCOMYCIN INJ 2,000 MG in SODIUM CHLORID 0.9% 500 ML INJ 500 ML IV SCH (06:13)
[2017-07-03] MEDS: CHLORHEXIDINE 0.12% (ORAL KIT) 15 ML CUP MT SCH ×2 (07:26→20:00)
[2017-07-03] MEDS: INSULIN HUMAN NPH 1,000 UNITS/10 ML VIAL SQ SCH ×2 (07:59→20:01)
[2017-07-03] MEDS: DOCUSATE SODIUM 50 MG/SENNA 8.6 MG TAB PO SCH ×2 (07:59→20:00)
[2017-07-03] MEDS: FAMOTIDINE 20 MG/2 ML VIAL IV PUSH SCH ×2 (07:59→20:01)
[2017-07-03] MEDS: CLOTRIMAZOLE 1% CREAM 15 GM TOPICAL SCH (08:00)
[2017-07-03] MEDS: SODIUM CHLORIDE 0.9% FLUSH 10 ML FLUSH IV FLUSH SCH ×2 (08:04→20:01)
[2017-07-03] MEDS: INSULIN ASPART SUPPLEMENTAL SCALE SQ SCH ×4 (08:05→20:01)
--- NOTE | 2017-07-03 10:17 | HHI.CCPN ---
Subjective Remarks/Hospital Course 57-year-old male presents complaining of fever, coughing congestion, nausea vomiting, abdominal pain. Patient states that the symptoms started 4 days ago. Patient states that he has poor appetite. Patient has history of diabetes and blood sugars been running high at home. Patient states the abdominal pain is cramping pain intermittent pain associate with vomiting. Patient states that abdominal pain localized to lower abdomen. Patient denies any pain radiation. Patient denies any dysuria or frequency. He admits his cough is intermittent and mild productive. Patient denies any chest pain. Patient denies any shortness of breath. 07/03 No events overbright. Renal function is improving with Cr: 1.47 today. Off insulin drip. Afebrile. Objective Vital Signs Date Time Temp Pulse Resp B/P (MAP) Pulse Ox O2 Delivery O2 Flow Rate FiO2 07/03/17 07:58 93 Nasal Cannula 4.00 07/03/17 06:00 94 07/03/17 04:00 21 115/69 (84) 07/03/17 00:00 98.1 Intake and Output 07/03/17 07/03/17 07/04/17 08:00 16:00 00:00 Intake Total 400 ml Output Total 1000 ml Balance -600 ml Result Diagram: 07/03/17 0258 07/03/17 0258 Other Results Laboratory Tests Test 07/02/17 13:00 07/02/17 16:50 07/02/17 22:46 07/03/17 02:38 Nasal Screen MRSA (PCR) MRSA NOT DETECTED White Blood Count 14.1 TH/MM3 Red Blood Count 3.43 MIL/MM3 Hemoglobin 8.3 GM/DL Hematocrit 25.1 % Mean Corpuscular Volume 73.1 FL Mean Corpuscular Hemoglobin 24.1 PG Mean Corpuscular Hemoglobin Concent 33.0 % Red Cell Distribution Width 20.1 % Platelet Count 390 TH/MM3 Mean Platelet Volume 7.5 FL Neutrophils (%) (Auto) 86.4 % Lymphocytes (%) (Auto) 5.6 % Monocytes (%) (Auto) 7.1 % Eosinophils (%) (Auto) 0.6 % Basophils (%) (Auto) 0.3 % Neutrophils # (Auto) 12.2 TH/MM3 Lymphocytes # (Auto) 0.8 TH/MM3 Monocytes # (Auto) 1.0 TH/MM3 Eosinophils # (Auto) 0.1 TH/MM3 Basophils # (Auto) 0.0 TH/MM3 CBC Comment DIFF FINAL Differential Comment Activated Partial Thromboplast Time 27.4 SEC Blood Urea Nitrogen 37 MG/DL Creatinine 1.43 MG/DL Random Glucose 239 MG/DL Calcium Level 7.8 MG/DL Sodium Level 132 MEQ/L Potassium Level 3.6 MEQ/L Chloride Level 102 MEQ/L Carbon Dioxide Level 20.3 MEQ/L Anion Gap 10 MEQ/L Estimat Glomerular Filtration Rate 51 ML/MIN Hemoglobin A1c 9.8 % Lactic Acid Level 1.4 mmol/L Phosphorus Level 2.1 MG/DL Magnesium Level 1.7 MG/DL Total Creatine Kinase 114 U/L Creatine Kinase MB 3.2 NG/ML Troponin I 3.05 NG/ML 2.34 NG/ML Prothrombin Time 12.0 SEC Prothromb Time International Ratio 1.2 RATIO Test 07/03/17 02:58 White Blood Count 12.5 TH/MM3 Red Blood Count 3.24 MIL/MM3 Hemoglobin 7.8 GM/DL Hematocrit 23.5 % Mean Corpuscular Volume 72.6 FL Mean Corpuscular Hemoglobin 24.1 PG Mean Corpuscular Hemoglobin Concent 33.2 % Red Cell Distribution Width 20.1 % Platelet Count 342 TH/MM3 Mean Platelet Volume 7.3 FL Neutrophils (%) (Auto) 82.2 % Lymphocytes (%) (Auto) 8.3 % Monocytes (%) (Auto) 7.2 % Eosinophils (%) (Auto) 2.1 % Basophils (%) (Auto) 0.2 % Neutrophils # (Auto) 10.2 TH/MM3 Lymphocytes # (Auto) 1.0 TH/MM3 Monocytes # (Auto) 0.9 TH/MM3 Eosinophils # (Auto) 0.3 TH/MM3 Basophils # (Auto) 0.0 TH/MM3 CBC Comment DIFF FINAL Differential Comment Blood Urea Nitrogen 34 MG/DL Creatinine 1.47 MG/DL Random Glucose 267 MG/DL Total Protein 5.8 GM/DL Albumin 1.5 GM/DL Calcium Level 7.3 MG/DL Phosphorus Level 2.6 MG/DL Magnesium Level 1.8 MG/DL Alkaline Phosphatase 147 U/L Aspartate Amino Transf (AST/SGOT) 23 U/L Alanine Aminotransferase (ALT/SGPT) 18 U/L Total Bilirubin 0.4 MG/DL Sodium Level 133 MEQ/L Potassium Level 3.8 MEQ/L Chloride Level 103 MEQ/L Carbon Dioxide Level 21.4 MEQ/L Anion Gap 9 MEQ/L Estimat Glomerular Filtration Rate 49 ML/MIN Protein Corrected Calcium 8.0 MG/DL Imaging Last Impressions Foot MRI 07/03/172013 Signed Impressions: Service Date/Time: Monday, July 03, 2017 08:58 - CONCLUSION: Extensive inflammatory changes beginning above the ankle extending through the hindfoot and forefoot as described above. Hugh Harris MD FACR Ankle MRI 07/03/17 0000 Signed Impressions: Service Date/Time: Monday, July 03, 2017 08:58 - CONCLUSION: The bulk of the inflammatory changes appear to be centered around the lateral malleolus and the joint. Septic arthritis is suspected. Osteomalacia of the distal fibula, distal tibia and talus are suspected. Septic joint is suspected. Wound communicates with the fibula with large fluid collection the flow tip of fibula. CT angiography would be of benefit to assess vascular in flow. Hugh Harris MD FACR Foot X-Ray 07/02/17 0000 Signed Impressions: Service Date/Time: June 19:12 - CONCLUSION: Possible lateral erosion of the fourth metatarsal head. Patient is scheduled for MRI. No other acute bony abnormalities are demonstrated. Patient is status post amputation of the fifth toe and resection of the fifth metatarsal. Drake Jarvis MD Chest X-Ray 07/01/172121 Signed Impressions: Service Date/Time: Saturday, July 01, 2017 21:34 - CONCLUSION: Normal examination. Jacob Pike MD Objective Remarks GENERAL: Well-nourished, well-developed patient. SKIN: Focused skin assessment warm/dry. HEAD: Normocephalic. EYES: No scleral icterus. No injection or drainage. Throat: Nonerythematous. NECK: Supple, trachea midline. No JVD or lymphadenopathy. No meningismus CARDIOVASCULAR: Regular rate and rhythm without murmurs, gallops, or rubs. RESPIRATORY: Breath sounds equal bilaterally. No accessory muscle use. GASTROINTESTINAL: Abdomen soft, non-tender, nondistended. MUSCULOSKELETAL: No cyanosis, bilateral chronic venous status changes, chronic stasis ulcerations. BACK: Nontender without obvious deformity. No CVA tenderness. Neurologic exam normal. A/P Assessment and Plan 1)Hyperglycemic hyperosmolar nonketotic syndrome 2)Cellulitis 3)OLEKSANDR 4)Anemia 5)Non-STEMI 6)Leukocytosis 7)Hyponatremia 8)BPH 9)Group B beta strep bacteremia Plan Neuro: Awake and alert. EEG: No seizures Pulm: Oxygen PRN keep sat >92% Bronchodilators CV: Monitor HR and BP keep MAP>65mmHg trop trending down. For echo to eval Lv function. Cards is following- Dr. Tucker. Discussed with Dr. Tucker patient can not be cleared for surgery till he gets stress test. : Monitor renal function, electrolytes replacement as needed. Continue with IVF GI: On PO diabetic diet ID: Abx per ID, monitor for signs of infections ( Fever, WBC). Nasal washing negative for Influenza For MRI foot today, ID, Podiatry is following MRI reviewed discussed with Podiatry will consult Vascular surgery BC 07/01: Group B beta strep Follow up on Blood, sputum, wound and urine cx from 07/02- NGTD Heme: Monitor CBC Endo: SSI, Novolin NPH insulin DVT GI prophylaxis - SCD, no on chemical AC prophylaxis due to anemia on arrival requiring blood transfusion. - Pepcid Patient has been non compliant and non cooperative with nursing staff and consultants. Level 3 Cy Andrea MD Jul 03, 2017 10:16
[2017-07-03] MEDS ORDERED: SODIUM CHLOR 0.9% 1000 ML INJ 1,000 ML IV ONE (10:45)
--- NOTE | 2017-07-03 10:51 | RADRPT ---
EXAM DATE/TIME: 07/03/2017 08:58 [facility] COMPARISON: MRI FOOT LEFT W & W/O CONTRAST, July 03, 2017, 8:58. FOOT LEFT COMPLETE ( [id number]), July 02, 2017, 19:12. INDICATIONS : Osteomyelitis. Wound on lateral side on left ankle. CONTRAST: 25 cc Omniscan (gadodiamide) IV MEDICAL HISTORY : Diabetes mellitus type 2. SURGICAL HISTORY : Tonsillectomy. Inguinal hernia repair. Appendectomy. 5th digit left foot amput ation. ENCOUNTER: Subsequent ACUITY: 3 weeks PAIN SCORE: 5/10 LOCATION: Left ankle TECHNIQUE: Multiplanar, multisequence MRI examination was performed without contrast and after th e intravenous administration of gadolinium. FINDINGS: Large open wound is seen on the lateral side of the ankle and rectum indication to the fibula which h as no edema and replacement consistent with osteomyelitis. Fluid is seen tracking along the lateral tendon sheaths. Fluid is seen in the ankle. There is marro w edema in the talus and in the distal tibia. Moderate joint effusion is present. Soft tissue abscess is seen extending from from extending from t ip of the fibula along the lateral tendon sheaths Extensive subjacent edema extends throughout the visualized limb from 10 cm above ankle to the foref oot. CONCLUSION: The bulk of the inflammatory changes appear to be centered around the lateral malleol us and the joint. Septic arthritis is suspected. Osteomalacia of the distal fibula, distal tibia an d talus are suspected. Septic joint is suspected. Wound communicates with the fibula with large fl uid collection the flow tip of fibula. CT angiography would be of benefit to assess vascular in flow. Hugh Harris MD FACR on July 03, 2017 at 10:35 Board Certified Radiologist. This report was verified electronically.
--- NOTE | 2017-07-03 10:55 | RADRPT ---
EXAM DATE/TIME: 07/03/2017 08:58 [facility] COMPARISON: No previous studies available for comparison. INDICATIONS : Osteomyelitis. Wound on mid lateral foot. CONTRAST: 25 cc Omniscan (gadodiamide) IV MEDICAL HISTORY : Diabetes mellitus type 2. SURGICAL HISTORY : Inguinal hernia repair. Appendectomy. Tonsillectomy. 5th digit left foot amputated. ENCOUNTER: Subsequent ACUITY: 3 weeks PAIN SCORE: 5/10 LOCATION: Left foot TECHNIQUE: Multiplanar, multisequence MRI examination was performed without contrast and after the intravenous a dministration of gadolinium. FINDINGS: Patient has an open wound lateral ankle communicating with distal fibula with large abscess, joint ef fusion and marrow edema in and around the ankle consistent with septic arthritis. These inflammatory changes extend into the forefoot with large amount of subjacent edema. There is n o deep space abscess identified. There is marrow replacement in the proximal fourth metatarsal and e xtensive edema along the tendon sheath. The fifth metatarsal is surgically absent. There is marrow edema in the cuboid CONCLUSION: Extensive inflammatory changes beginning above the ankle extending through the hindfo ot and forefoot as described above. Hugh Harris MD FACR on July 03, 2017 at 10:49 Board Certified Radiologist. This report was verified electronically.
[2017-07-03] MEDS ORDERED: METOPROLOL TARTRATE 5 MG/5 ML VIAL IV PUSH ONE (11:00)
--- NOTE | 2017-07-03 11:06 | HHI.PR ---
Subjective Remarks Nurse called me to inform me patient refusing to remain NPO. Spoke with patient over the phone regarding MRI and surgical intervention as discussed yesterday. Patient is refusing to remain NPO and states will not undergo surgical intervention unless he can be scheduled at 7am. He will not remain NPO. Patient hung up the phone. Objective Vital Signs Date Time Temp Pulse Resp B/P (MAP) Pulse Ox O2 Delivery O2 Flow Rate FiO2 07/03/17 07:58 93 Nasal Cannula 4.00 07/03/17 06:00 94 07/03/17 04:00 96 21 115/69 (84) 95 07/03/17 04:00 96 07/03/17 02:00 97 07/03/17 00:00 98.1 112 22 136/64 (88) 96 07/03/17 00:00 112 07/02/17 22:00 98 07/02/17 20:00 98.5 111 19 141/70 (93) 97 07/02/17 20:00 111 07/02/17 18:00 115 07/02/17 17:26 18 07/02/17 16:00 109 07/02/17 16:00 99.0 109 21 156/78 (104) 97 07/02/17 14:00 99.0 106 19 136/78 (97) 96 07/02/17 14:00 106 07/02/17 12:27 91 18 144/78 (100) 98 Room Air 07/02/17 12:24 98.1 94 18 129/71 99 I/O 07/02/17 07/02/17 07/02/17 07/03/17 07/03/17 07/03/17 07:00 15:00 23:00 07:00 15:00 23:00 Intake Total 850 ml 1080 ml 1750 ml Output Total 750 ml 800 ml 1000 ml Balance 100 ml 280 ml 750 ml Intake Oral 480 ml 400 ml IV Total 600 ml 1350 ml Packed Cells 800 ml Blood Product IV Normal Saline Flush 50 ml Output Urine Total 750 ml 800 ml 1000 ml Stool Total 0 ml # Voids 1 Result Diagram: 07/03/17 0258 07/03/17 0258 Assessment and Plan Assessment and Plan 57 year old male with left foot infection with possible abscess and possible OM Patient examined and evaluated Blood Culture/Wound culture (+) GPC MRI Left foot reviewed Arterial Doppler/KRISTIE pending Discussed severity of infection with patient Continues to refuse intervention - states he will not remain NPO and will not undergo surgical intervention unless he is taken at 7am. Explained to patient scheduling of OR and that traumas may bump the case but he hung up the phone. Slime Gonzales DPM Jul 03, 2017 11:06
[2017-07-03] MEDS ORDERED: DILTIAZEM HCL 25 MG/5 ML VIAL IV PUSH ONE ×2 (12:00→13:30)
--- NOTE | 2017-07-03 12:08 | PD.CONS ---
HPI History of Present Illness This is a 57 year old morbidly obese male who came into the hospital on 07/02/17 ; currently being managed in the intensive care setting for his fever nausea vomiting abdominal pain and anemia. Patient has diabetes mellitus complicated with Charcot feet. MRI done this a.m. on left foot which has wounds that B and evaluated. During this exam patient's heart rate was noted to be between the 140s and 50s, labile, low-grade fever 99.7, and patient is adamant to have something to drink and eat if possible since he's had nothing all morning he states. Initially hemoglobin was 6.2 on admission now trending at 7.8. Patient 's anemia could be related to his acute on chronic renal disease but also could be some possible upper GI bleeding. Patient is awake and able to communicate, does have some increased anxiety levels. 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; (foot)-07/26/16 Uncoded Allergies: NOWAK (Adverse Reaction, Unknown, FLU LIKE SYMPTOMS, 11/25/16) NOWAK HAIR REMOVAL CREAM Medications Administered Medications Medications (Trade) Dose Ordered Sig/Tri Route PRN Reason Start Time Stop Time Status Last Admin Dose Admin Sodium Chloride 1,000 ml @ 125 mls/hr Q8H IV 07/02/17 01:21 07/03/17 00:01 Sodium Chloride (NS Flush) 2 ml BID IV FLUSH 07/02/17 09:00 07/02/17 20:46 Ondansetron HCl (Zofran Inj) 4 mg Q6H PRN IV PUSH NAUSEA OR VOMITING 07/02/17 01:30 07/02/17 09:33 Albuterol/ Ipratropium (Duoneb Neb) 1 ampule Q2HR NEB PRN INH WHEEZING 07/02/17 01:30 07/02/17 05:00 Piperacillin Sod/ Tazobactam Sod 100 ml @ 200 mls/hr Q6H IV 07/02/17 04:00 07/03/17 08:04 Oxycodone HCl (Roxicodone) 10 mg Q6H PRN PO PAIN 1-10 07/02/17 04:15 07/02/17 23:11 Tamsulosin HCl (Flomax) 0.4 mg HS PO 07/02/17 21:00 07/02/17 23:10 Vancomycin HCl 2000 mg/Sodium Chloride 520 ml @ 250 mls/hr Q24H IV 07/03/17 06:00 07/03/17 06:13 Sodium Phosphate 30 mmol/Sodium Chloride 250 ml @ 42 mls/hr UNSCH PRN IV For Phosphorus < 2.5 mg/dL 07/02/17 16:30 07/02/17 18:34 Insulin Human NPH (NovoLIN N INJ) 25 units HS SQ 07/02/17 21:00 07/02/17 20:45 Insulin Aspart (NovoLOG SUPPLEMENTAL SCALE) 1 ACHS SLIDING SCALE SQ 07/02/17 21:00 07/03/17 08:05 Family History No known history of colon cancer in the family Social History No known EtOH tobacco or illicit drugs (Minerva Simmons) Review of Systems Constitutional: COMPLAINS OF: Fatigue, Fever Gastrointestinal: COMPLAINS OF: Black stools, Nausea (decreased appetite at times) (Minerva Simmons) GI Exam Vitals I&O Vital Signs Date Time Temp Pulse Resp B/P (MAP) Pulse Ox O2 Delivery O2 Flow Rate FiO2 07/03/17 08:00 99.7 117 26 127/69 (88) 93 07/03/17 08:00 117 07/03/17 07:58 93 Nasal Cannula 4.00 07/03/17 06:00 94 07/03/17 04:00 96 21 115/69 (84) 95 07/03/17 04:00 96 07/03/17 02:00 97 07/03/17 00:00 98.1 112 22 136/64 (88) 96 07/03/17 00:00 112 07/02/17 22:00 98 07/02/17 20:00 98.5 111 19 141/70 (93) 97 07/02/17 20:00 111 07/02/17 18:00 115 07/02/17 17:26 18 07/02/17 16:00 109 07/02/17 16:00 99.0 109 21 156/78 (104) 97 07/02/17 14:00 99.0 106 19 136/78 (97) 96 07/02/17 14:00 106 07/02/17 12:27 91 18 144/78 (100) 98 Room Air 07/02/17 12:24 98.1 94 18 129/71 99 I/O 07/02/17 07/02/17 07/02/17 07/03/17 07/03/17 07/03/17 06:59 14:59 22:59 06:59 14:59 22:59 Intake Total 850 ml 1080 ml 1750 ml Output Total 750 ml 800 ml 1000 ml Balance 100 ml 280 ml 750 ml Intake Oral 480 ml 400 ml IV Total 600 ml 1350 ml Packed Cells 800 ml Blood Product IV Normal Saline Flush 50 ml Output Urine Total 750 ml 800 ml 1000 ml Stool Total 0 ml # Voids 1 Imaging Last Impressions Foot MRI 07/03/172013 Signed Impressions: Service Date/Time: Monday, July 03, 2017 08:58 - CONCLUSION: Extensive inflammatory changes beginning above the ankle extending through the hindfoot and forefoot as described above. Hugh Harris MD FACR Ankle MRI 07/03/17 0000 Signed Impressions: Service Date/Time: Monday, July 03, 2017 08:58 - CONCLUSION: The bulk of the inflammatory changes appear to be centered around the lateral malleolus and the joint. Septic arthritis is suspected. Osteomalacia of the distal fibula, distal tibia and talus are suspected. Septic joint is suspected. Wound communicates with the fibula with large fluid collection the flow tip of fibula. CT angiography would be of benefit to assess vascular in flow. Hugh Harris MD FACR Foot X-Ray 07/02/17 0000 Signed Impressions: Service Date/Time: June 19:12 - CONCLUSION: Possible lateral erosion of the fourth metatarsal head. Patient is scheduled for MRI. No other acute bony abnormalities are demonstrated. Patient is status post amputation of the fifth toe and resection of the fifth metatarsal. Drake Jarvis MD Chest X-Ray 07/01/172121 Signed Impressions: Service Date/Time: Saturday, July 01, 2017 21:34 - CONCLUSION: Normal examination. Jacob Pike MD Laboratory Test 07/02/17 13:00 07/02/17 16:50 07/02/17 22:46 07/03/17 02:38 Nasal Screen MRSA (PCR) MRSA NOT DETECTED White Blood Count 14.1 TH/MM3 Red Blood Count 3.43 MIL/MM3 Hemoglobin 8.3 GM/DL Hematocrit 25.1 % Mean Corpuscular Volume 73.1 FL Mean Corpuscular Hemoglobin 24.1 PG Mean Corpuscular Hemoglobin Concent 33.0 % Red Cell Distribution Width 20.1 % Platelet Count 390 TH/MM3 Mean Platelet Volume 7.5 FL Neutrophils (%) (Auto) 86.4 % Lymphocytes (%) (Auto) 5.6 % Monocytes (%) (Auto) 7.1 % Eosinophils (%) (Auto) 0.6 % Basophils (%) (Auto) 0.3 % Neutrophils # (Auto) 12.2 TH/MM3 Lymphocytes # (Auto) 0.8 TH/MM3 Monocytes # (Auto) 1.0 TH/MM3 Eosinophils # (Auto) 0.1 TH/MM3 Basophils # (Auto) 0.0 TH/MM3 CBC Comment DIFF FINAL Differential Comment Activated Partial Thromboplast Time 27.4 SEC Blood Urea Nitrogen 37 MG/DL Creatinine 1.43 MG/DL Random Glucose 239 MG/DL Calcium Level 7.8 MG/DL Sodium Level 132 MEQ/L Potassium Level 3.6 MEQ/L Chloride Level 102 MEQ/L Carbon Dioxide Level 20.3 MEQ/L Anion Gap 10 MEQ/L Estimat Glomerular Filtration Rate 51 ML/MIN Hemoglobin A1c 9.8 % Lactic Acid Level 1.4 mmol/L Phosphorus Level 2.1 MG/DL Magnesium Level 1.7 MG/DL Total Creatine Kinase 114 U/L Creatine Kinase MB 3.2 NG/ML Troponin I 3.05 NG/ML 2.34 NG/ML Prothrombin Time 12.0 SEC Prothromb Time International Ratio 1.2 RATIO Test 07/03/17 02:58 White Blood Count 12.5 TH/MM3 Red Blood Count 3.24 MIL/MM3 Hemoglobin 7.8 GM/DL Hematocrit 23.5 % Mean Corpuscular Volume 72.6 FL Mean Corpuscular Hemoglobin 24.1 PG Mean Corpuscular Hemoglobin Concent 33.2 % Red Cell Distribution Width 20.1 % Platelet Count 342 TH/MM3 Mean Platelet Volume 7.3 FL Neutrophils (%) (Auto) 82.2 % Lymphocytes (%) (Auto) 8.3 % Monocytes (%) (Auto) 7.2 % Eosinophils (%) (Auto) 2.1 % Basophils (%) (Auto) 0.2 % Neutrophils # (Auto) 10.2 TH/MM3 Lymphocytes # (Auto) 1.0 TH/MM3 Monocytes # (Auto) 0.9 TH/MM3 Eosinophils # (Auto) 0.3 TH/MM3 Basophils # (Auto) 0.0 TH/MM3 CBC Comment DIFF FINAL Differential Comment Blood Urea Nitrogen 34 MG/DL Creatinine 1.47 MG/DL Random Glucose 267 MG/DL Total Protein 5.8 GM/DL Albumin 1.5 GM/DL Calcium Level 7.3 MG/DL Phosphorus Level 2.6 MG/DL Magnesium Level 1.8 MG/DL Alkaline Phosphatase 147 U/L Aspartate Amino Transf (AST/SGOT) 23 U/L Alanine Aminotransferase (ALT/SGPT) 18 U/L Total Bilirubin 0.4 MG/DL Sodium Level 133 MEQ/L Potassium Level 3.8 MEQ/L Chloride Level 103 MEQ/L Carbon Dioxide Level 21.4 MEQ/L Anion Gap 9 MEQ/L Estimat Glomerular Filtration Rate 49 ML/MIN Protein Corrected Calcium 8.0 MG/DL Date/Time Source Procedure Growth Status 07/02/17 16:50 Blood Peripheral Aerobic Blood Culture - Preliminary NO GROWTH IN 1 DAY Resulted 07/02/17 16:50 Blood Peripheral Anaerobic Blood Culture - Preliminary NO GROWTH IN 1 DAY Resulted 07/02/17 01:50 Sputum Endotracheal Gram Stain - Final Resulted 07/02/17 01:50 Sputum Endotracheal Sputum Culture - Preliminary HEAVY GROWTH NORMAL RESPIRATORY DEE... Resulted 07/02/17 02:35 Urine Catheterized Urine Urine Culture Pending Received 07/02/17 04:50 Wound Foot Gram Stain - Final Resulted 07/02/17 04:50 Wound Foot Wound Culture Pending Resulted Physical Examination HEENT: Pupils round and reactive to light; normocephalic; atraumatic; no jaundice. Throat is dry NECK: Neck is easy, short CHEST: Chest is clear without rhonchi CARDIAC: Rhythm tachycardic with any type of activity ABDOMEN: Round, taut, mild distention, nontender; no hepatosplenomegaly; bowel sounds active EXTREMITIES: Charcot feet, clubbing, left foot wrapped for wounds SKIN: Pale, dry, LEAD LOADER: No focal deficits; alert and oriented times three., Anxious (Minerva Simmons) Assessment and Plan Assessment: (1) Tachycardia ICD Codes: R00.0 - Tachycardia, unspecified (2) Anemia ICD Codes: D64.9 - Anemia, unspecified (3) Upper GI bleed ICD Codes: K92.2 - Gastrointestinal hemorrhage, unspecified (4) DM (diabetes mellitus) ICD Codes: E11.9 - Type 2 diabetes mellitus without complications Status: Chronic Plan GI bleed probable upper unspecified causes. Patient does have chronic uncontrolled diabetes as well as acute on chronic renal disease. Patient will need upper endoscopy when he is medically stable. Currently having bouts of tachycardia with any increased activity and is receiving some IV Cardizem Time TBA Elevated alkaline phosphatase level, unspecified. May need to consider CT scan. Currently patient's heart rate is unstable IV Pepcid Diet ADA soft heart healthy foods, but will be transitioned back to clear liquids if patient has acute episodes of nausea and vomiting Upper endoscopy TBA, patient also may need colonoscopy, but EGD is primary for now. Call for any acute GI bleeding upper or lower that needs immediate attention to GI Monitor labs, recheck CBC in the morning special attention to hemoglobin Patient was seen by myself and Dr. Michel, 's note was written on her behalf (Minerva Simmons) Physician Comments seen, examined agree with above egd when clinically stable , unless emergency (Rachel Michel MD) Minerva Simmons Jul 03, 2017 12:08 Rachel Michel MD Jul 03, 2017 21:48
[2017-07-03] MEDS ORDERED: GADODIAMIDE PF 287 MG/ML 5 ML VIAL (for RAD MRI) IV PUSH ONE (12:41)
[2017-07-03 12:56] LABS: HEMATOCRIT 22.6 % (39.0-51.0); HEMOGLOBIN 7.5 GM/DL (13.0-17.0)
--- NOTE | 2017-07-03 13:18 | PD.CARD.PN ---
Subjective Subjective Remarks No CP, mild SOB, nuclear stress test not completed since the patient was uncooperative and adversarial Objective Medications Current Medications Medications (Trade) Dose Ordered Sig/Tri Route Start Time Stop Time Status Last Admin (Sodium Bicarbonate 8.4% Inj) 100 meq UNSCH PRN IV PUSH 07/02/17 00:30 (Sodium Bicarbonate 8.4% Inj) 50 meq UNSCH PRN IV PUSH 07/02/17 00:30 Sodium Chloride 1,000 ml @ 125 mls/hr Q8H IV 07/02/17 01:21 07/03/17 00:01 (NS Flush) 2 ml UNSCH PRN IV FLUSH 07/02/17 01:30 (NS Flush) 2 ml BID IV FLUSH 07/02/17 09:00 07/02/17 20:46 (Tylenol) 650 mg Q6H PRN PO 07/02/17 01:30 (Morphine Inj) 2 mg Q2H PRN IV PUSH 07/02/17 01:30 (Pepcid Inj) 20 mg Q12HR IV PUSH 07/02/17 09:00 (Versed Inj) 2 mg Q1H PRN IV PUSH 07/02/17 01:30 (Zofran Inj) 4 mg Q6H PRN IV PUSH 07/02/17 01:30 07/02/17 09:33 (Duoneb Neb) 1 ampule Q2HR NEB PRN INH 07/02/17 01:30 07/02/17 05:00 (Heparin Inj) 5,000 units Q8HR SQ 07/02/17 06:00 Future Hold Miscellaneous Information 1 Q361D XX 07/02/17 01:30 (Chlorhexidine 2% Cloth) 3 pack Taper DAILY@04 TOP 07/02/17 04:00 06/28/18 03:59 (Chlorhexidine 2% Cloth) 3 pack UNSCH PRN TOP 07/02/17 01:30 (Emelia-Colace) 1 tab BID PO 07/02/17 09:00 (Senokot) 17.2 mg Q12H PRN PO 07/02/17 01:30 (Dulcolax Supp) 10 mg DAILY PRN RECTAL 07/02/17 01:30 (Lactulose Liq) 30 ml DAILY PRN PO 07/02/17 01:30 (Peridex 0.12% Liq) 15 ml BID@08,20 MT 07/02/17 08:00 Piperacillin Sod/ Tazobactam Sod 100 ml @ 200 mls/hr Q6H IV 07/02/17 04:00 07/03/17 08:04 (Lotrimin 1% Cream) 1 applic DAILY TOPICAL 07/02/17 09:00 (Roxicodone) 10 mg Q6H PRN PO 07/02/17 04:15 07/02/17 23:11 (Flomax) 0.4 mg HS PO 07/02/17 21:00 07/02/17 23:10 Vancomycin HCl 2000 mg/Sodium Chloride 520 ml @ 250 mls/hr Q24H IV 07/03/17 06:00 07/03/17 06:13 Miscellaneous Information SPECIFIC LAB TO BE DRAWN:VANCOMY... ONCE ONCE .XX 07/05/17 05:45 07/05/17 05:46 Pharmacy Profile Note 0 ml @ 0 mls/hr UNSCH OTHER 07/02/17 10:45 Potassium Chloride 100 ml @ 50 mls/hr Q2H PRN IV 07/02/17 16:30 (K-Lyte Cl Eff) 50 meq UNSCH PRN PO 07/02/17 16:30 Potassium Chloride 100 ml @ 25 mls/hr UNSCH PRN IV 07/02/17 16:30 Potassium Chloride 100 ml @ 50 mls/hr Q2H PRN IV 07/02/17 16:30 Magnesium Sulfate 4 gm/Sodium Chloride 100 ml @ 50 mls/hr UNSCH PRN IV 07/02/17 16:30 (Mag-Ox) 800 mg UNSCH PRN PO 07/02/17 16:30 Magnesium Sulfate 2 gm/Sodium Chloride 100 ml @ 50 mls/hr UNSCH PRN IV 07/02/17 16:30 (K-Phos) 2,000 mg Q4H PRN PO 07/02/17 16:30 Sodium Phosphate 30 mmol/Sodium Chloride 250 ml @ 42 mls/hr UNSCH PRN IV 07/02/17 16:30 07/02/17 18:34 (K-Phos) 2,000 mg UNSCH PRN PO/TUBE 07/02/17 16:30 Potassium Phosphate 30 mmol/ Sodium Chloride 260 ml @ 42 mls/hr UNSCH PRN IV 07/02/17 16:30 Potassium Chloride 100 ml @ 25 mls/hr Q4H PRN IV 07/02/17 16:45 (NovoLIN N INJ) 25 units HS SQ 07/02/17 21:00 07/02/17 20:45 (NovoLIN N INJ) 35 units DAILY SQ 07/03/17 09:00 (D50w (Vial) Inj) 50 ml UNSCH PRN IV PUSH 07/02/17 20:30 (Glucagon Inj) 1 mg UNSCH PRN OTHER 07/02/17 20:30 (NovoLOG SUPPLEMENTAL SCALE) 1 ACHS SLIDING SCALE SQ 07/02/17 21:00 07/03/17 12:07 Vital Signs / I&O Vital Signs Date Time Temp Pulse Resp B/P (MAP) Pulse Ox O2 Delivery O2 Flow Rate FiO2 07/03/17 08:00 99.7 117 26 127/69 (88) 93 07/03/17 08:00 117 07/03/17 07:58 93 Nasal Cannula 4.00 07/03/17 06:00 94 07/03/17 04:00 96 21 115/69 (84) 95 07/03/17 04:00 96 07/03/17 02:00 97 07/03/17 00:00 98.1 112 22 136/64 (88) 96 07/03/17 00:00 112 07/02/17 22:00 98 07/02/17 20:00 98.5 111 19 141/70 (93) 97 07/02/17 20:00 111 07/02/17 18:00 115 07/02/17 17:26 18 07/02/17 16:00 109 07/02/17 16:00 99.0 109 21 156/78 (104) 97 07/02/17 14:00 99.0 106 19 136/78 (97) 96 07/02/17 14:00 106 I/O 07/02/17 07/02/17 07/02/17 07/03/17 07/03/17 07/03/17 07:00 15:00 23:00 07:00 15:00 23:00 Intake Total 850 ml 1080 ml 1750 ml 1100 ml Output Total 750 ml 800 ml 1000 ml Balance 100 ml 280 ml 750 ml 1100 ml Intake Oral 480 ml 400 ml IV Total 600 ml 1350 ml 1100 ml Packed Cells 800 ml Blood Product IV Normal Saline Flush 50 ml Output Urine Total 750 ml 800 ml 1000 ml Stool Total 0 ml # Voids 1 Physical Exam GENERAL: In NAD SKIN: Warm and dry. HEAD: Normocephalic. EYES: No scleral icterus. No injection or drainage. NECK: Supple, trachea midline. No JVD or lymphadenopathy. CARDIOVASCULAR: Irregular rate and rhythm, tachy, without murmurs, gallops, or rubs. RESPIRATORY: Breath sounds equal bilaterally. No accessory muscle use. GASTROINTESTINAL: Abdomen soft, non-tender, nondistended. MUSCULOSKELETAL: No cyanosis, LE edema and deformities. Laboratory Laboratory Tests Test 07/02/17 16:50 07/02/17 22:46 07/03/17 02:38 07/03/17 02:58 White Blood Count 14.1 TH/MM3 12.5 TH/MM3 Red Blood Count 3.43 MIL/MM3 3.24 MIL/MM3 Hemoglobin 8.3 GM/DL 7.8 GM/DL Hematocrit 25.1 % 23.5 % Mean Corpuscular Volume 73.1 FL 72.6 FL Mean Corpuscular Hemoglobin 24.1 PG 24.1 PG Mean Corpuscular Hemoglobin Concent 33.0 % 33.2 % Red Cell Distribution Width 20.1 % 20.1 % Platelet Count 390 TH/MM3 342 TH/MM3 Mean Platelet Volume 7.5 FL 7.3 FL Neutrophils (%) (Auto) 86.4 % 82.2 % Lymphocytes (%) (Auto) 5.6 % 8.3 % Monocytes (%) (Auto) 7.1 % 7.2 % Eosinophils (%) (Auto) 0.6 % 2.1 % Basophils (%) (Auto) 0.3 % 0.2 % Neutrophils # (Auto) 12.2 TH/MM3 10.2 TH/MM3 Lymphocytes # (Auto) 0.8 TH/MM3 1.0 TH/MM3 Monocytes # (Auto) 1.0 TH/MM3 0.9 TH/MM3 Eosinophils # (Auto) 0.1 TH/MM3 0.3 TH/MM3 Basophils # (Auto) 0.0 TH/MM3 0.0 TH/MM3 CBC Comment DIFF FINAL DIFF FINAL Differential Comment Activated Partial Thromboplast Time 27.4 SEC Blood Urea Nitrogen 37 MG/DL 34 MG/DL Creatinine 1.43 MG/DL 1.47 MG/DL Random Glucose 239 MG/DL 267 MG/DL Calcium Level 7.8 MG/DL 7.3 MG/DL Sodium Level 132 MEQ/L 133 MEQ/L Potassium Level 3.6 MEQ/L 3.8 MEQ/L Chloride Level 102 MEQ/L 103 MEQ/L Carbon Dioxide Level 20.3 MEQ/L 21.4 MEQ/L Anion Gap 10 MEQ/L 9 MEQ/L Estimat Glomerular Filtration Rate 51 ML/MIN 49 ML/MIN Hemoglobin A1c 9.8 % Lactic Acid Level 1.4 mmol/L Phosphorus Level 2.1 MG/DL 2.6 MG/DL Magnesium Level 1.7 MG/DL 1.8 MG/DL Total Creatine Kinase 114 U/L Creatine Kinase MB 3.2 NG/ML Troponin I 3.05 NG/ML 2.34 NG/ML Prothrombin Time 12.0 SEC Prothromb Time International Ratio 1.2 RATIO Total Protein 5.8 GM/DL Albumin 1.5 GM/DL Alkaline Phosphatase 147 U/L Aspartate Amino Transf (AST/SGOT) 23 U/L Alanine Aminotransferase (ALT/SGPT) 18 U/L Total Bilirubin 0.4 MG/DL Protein Corrected Calcium 8.0 MG/DL Test 07/03/17 12:25 Hemoglobin 7.5 GM/DL Hematocrit 22.6 % Imaging Last 24 hours Impressions Foot MRI 07/03/172013 Signed Impressions: Service Date/Time: Monday, July 03, 2017 08:58 - CONCLUSION: Extensive inflammatory changes beginning above the ankle extending through the hindfoot and forefoot as described above. Hguh Harris MD FACR Ankle MRI 07/03/17 0000 Signed Impressions: Service Date/Time: Monday, July 03, 2017 08:58 - CONCLUSION: The bulk of the inflammatory changes appear to be centered around the lateral malleolus and the joint. Septic arthritis is suspected. Osteomalacia of the distal fibula, distal tibia and talus are suspected. Septic joint is suspected. Wound communicates with the fibula with large fluid collection the flow tip of fibula. CT angiography would be of benefit to assess vascular in flow. Hugh Harris MD FACR Assessment and Plan Problem List: (1) Angina pectoris ICD Codes: I20.9 - Angina pectoris, unspecified (2) Elevated troponin ICD Codes: R74.8 - Abnormal levels of other serum enzymes (3) Uncontrolled type 2 DM with hyperosmolar nonketotic hyperglycemia ICD Codes: E11.00 - Type 2 diabetes mellitus with hyperosmolarity without nonketotic hyperglycemic-hyperosmolar coma ([facility]) Assessment and Plan Nuclear stress test could not be completed since the patient was highly uncooperative. The patient had CP and elevated troponin. Cardiac risk of anesthesia is possibly high. The patient remains difficult. Continue diltiazem for a fib rate control. Continue abxs as per ID. Continue ICU care. Tiak Tucker MD Jul 03, 2017 13:18
--- NOTE | 2017-07-03 14:09 | RADRPT ---
EXAM DATE/TIME: 07/02/2017 00:00 [facility] COMPARISON: No previous studies available for comparison. INDICATIONS : Left Lower Extremity Ulcer TECHNIQUE: Four-cuff ankle and brachial pressures were obtained. Pulse cuff waveform tracings of the ankles were recorded, and ankle-brachial indices were calculated. PRESSURES (mmHg): Brachial (arm): Right 132 Left IV SITE Ankle: Right 121 Left 116 KRISTIE: Right 0.92 Left 0.88 TBI: Right 0.46 Left 0.39 PULSED CUFF WAVEFORMS: Blunted pulse wave tracings in both ankles worse on the left than the right. CONCLUSION: Diminished ABIs worsening left than the right. Hugh Harris MD FACR on July 03, 2017 at 14:06 Board Certified Radiologist. This report was verified electronically.
[2017-07-03] MEDS: DILTIAZEM INJ 125 MG in SODIUM CHLORIDE 0.9% INJ 100 ML IV PRN ×2 (15:01→23:00)
--- NOTE | 2017-07-03 16:21 | PD.WCN.NOT ---
Wound Consult Description: Received wound management consult for heel Communicated with: DENTON Farias [facility] [place] Recommendation: See note below Additional Information: Patient was not seen. Spoke with DENTON Farias. RN just changed dressing on L foot. Per RN,Wound is draining heavy purulent drainage.Patient is easily agitated.Wound culture is positive for group B beta strep,staphylococcus species , and gram negative rods. Suggested using Calcium alginate with silver (Maxorb extra AG) as primary dressing for heavy drainage, covered with dry 4 x4 gauze pads, ABD pad and secured with rolled gauze and tape. Dressing to be changed daily until patient undergoes surgical intervention as podiatry recommends.Will follow up with patient on Thursday if no surgical intervention is done. Jen Barrett [facility] Jul 03, 2017 16:21
--- NOTE | 2017-07-03 17:12 | HHI.PR ---
Addendum to Inpatient Note Additional Information pt was seen around 1630 full note to follow Coty Wolf MD Jul 03, 2017 17:12
--- NOTE | 2017-07-03 18:33 | PD.CAR.PN ---
CVT Progress Note Subjective/Hospital Course: Consult received Full dictation to follow Objective: Vital Signs Date Time Temp Pulse Resp B/P (MAP) Pulse Ox O2 Delivery O2 Flow Rate FiO2 07/03/17 15:01 129 98/63 07/03/17 14:07 96.8 118 28 93/54 95 07/03/17 14:00 118 07/03/17 12:00 138 07/03/17 08:00 99.7 117 26 127/69 (88) 93 07/03/17 08:00 117 07/03/17 07:58 93 Nasal Cannula 4.00 07/03/17 06:00 94 07/03/17 04:00 96 21 115/69 (84) 95 07/03/17 04:00 96 07/03/17 02:00 97 07/03/17 00:00 98.1 112 22 136/64 (88) 96 07/03/17 00:00 112 07/02/17 22:00 98 07/02/17 20:00 98.5 111 19 141/70 (93) 97 07/02/17 20:00 111 Labs: Laboratory Tests Test 07/03/17 12:25 Hemoglobin 7.5 GM/DL (13.0-17.0) Hematocrit 22.6 % (39.0-51.0) Troponin I 1.98 NG/ML (0.02-0.05) Result Diagram: 07/03/17 1225 07/03/17 0258 (1) Angina pectoris (2) Elevated troponin (3) Uncontrolled type 2 DM with hyperosmolar nonketotic hyperglycemia Larisa Hernández MD Jul 03, 2017 18:33
--- NOTE | 2017-07-03 18:48 | HHI.PR ---
Subjective Remarks Patient seen that set this evening. Discussed MRI with patient, informed patient below the knee amputation would be best option and forward. Objective Vital Signs Date Time Temp Pulse Resp B/P (MAP) Pulse Ox O2 Delivery O2 Flow Rate FiO2 07/03/17 15:01 129 98/63 07/03/17 14:07 96.8 118 28 93/54 95 07/03/17 14:00 118 07/03/17 12:00 138 07/03/17 08:00 99.7 117 26 127/69 (88) 93 07/03/17 08:00 117 07/03/17 07:58 93 Nasal Cannula 4.00 07/03/17 06:00 94 07/03/17 04:00 96 21 115/69 (84) 95 07/03/17 04:00 96 07/03/17 02:00 97 07/03/17 00:00 98.1 112 22 136/64 (88) 96 07/03/17 00:00 112 07/02/17 22:00 98 07/02/17 20:00 98.5 111 19 141/70 (93) 97 07/02/17 20:00 111 I/O 07/02/17 07/02/17 07/02/17 07/03/17 07/03/17 07/03/17 07:00 15:00 23:00 07:00 15:00 23:00 Intake Total 850 ml 1080 ml 1750 ml 1100 ml 550 ml Output Total 750 ml 800 ml 1000 ml Balance 100 ml 280 ml 750 ml 1100 ml 550 ml Intake Oral 480 ml 400 ml IV Total 600 ml 1350 ml 1100 ml 100 ml Packed Cells 800 ml 400 ml Blood Product IV Normal Saline Flush 50 ml 50 ml Output Urine Total 750 ml 800 ml 1000 ml Stool Total 0 ml # Voids 1 Result Diagram: 07/03/17 1225 07/03/17 0258 Imaging Last Impressions Foot MRI 07/03/172013 Signed Impressions: Service Date/Time: Monday, July 03, 2017 08:58 - CONCLUSION: Extensive inflammatory changes beginning above the ankle extending through the hindfoot and forefoot as described above. Hugh Harris MD FACR Ankle MRI 07/03/17 0000 Signed Impressions: Service Date/Time: Monday, July 03, 2017 08:58 - CONCLUSION: The bulk of the inflammatory changes appear to be centered around the lateral malleolus and the joint. Septic arthritis is suspected. Osteomalacia of the distal fibula, distal tibia and talus are suspected. Septic joint is suspected. Wound communicates with the fibula with large fluid collection the flow tip of fibula. CT angiography would be of benefit to assess vascular in flow. Hugh Harris MD FACR Foot X-Ray 07/02/17 0000 Signed Impressions: Service Date/Time: June 19:12 - CONCLUSION: Possible lateral erosion of the fourth metatarsal head. Patient is scheduled for MRI. No other acute bony abnormalities are demonstrated. Patient is status post amputation of the fifth toe and resection of the fifth metatarsal. Drake Jarvis MD Chest X-Ray 07/01/172121 Signed Impressions: Service Date/Time: Saturday, July 01, 2017 21:34 - CONCLUSION: Normal examination. Jacob Pike MD Other Results Laboratory Tests Test 07/01/17 22:00 07/02/17 00:10 07/02/17 02:35 07/02/17 03:20 White Blood Count 16.7 TH/MM3 11.9 TH/MM3 Red Blood Count 3.64 MIL/MM3 2.68 MIL/MM3 Hemoglobin 8.2 GM/DL 6.2 GM/DL Hematocrit 26.0 % 19.1 % Mean Corpuscular Volume 71.3 FL 71.0 FL Mean Corpuscular Hemoglobin 22.6 PG 23.0 PG Mean Corpuscular Hemoglobin Concent 31.8 % 32.4 % Red Cell Distribution Width 18.6 % 18.3 % Platelet Count 384 TH/MM3 293 TH/MM3 Mean Platelet Volume 7.5 FL 7.4 FL Neutrophils (%) (Auto) 89.7 % Lymphocytes (%) (Auto) 3.0 % Monocytes (%) (Auto) 6.9 % Eosinophils (%) (Auto) 0.0 % Basophils (%) (Auto) 0.4 % Neutrophils # (Auto) 15.0 TH/MM3 Lymphocytes # (Auto) 0.5 TH/MM3 Monocytes # (Auto) 1.1 TH/MM3 Eosinophils # (Auto) 0.0 TH/MM3 Basophils # (Auto) 0.1 TH/MM3 CBC Comment DIFF FINAL Differential Comment Blood Urea Nitrogen 50 MG/DL 44 MG/DL Creatinine 2.16 MG/DL 1.71 MG/DL Random Glucose 532 MG/DL 296 MG/DL Total Protein 7.8 GM/DL 6.4 GM/DL Albumin 2.2 GM/DL Calcium Level 8.5 MG/DL 7.4 MG/DL Alkaline Phosphatase 178 U/L Aspartate Amino Transf (AST/SGOT) 27 U/L Alanine Aminotransferase (ALT/SGPT) 19 U/L Total Bilirubin 0.5 MG/DL Sodium Level 122 MEQ/L 130 MEQ/L Potassium Level 4.2 MEQ/L 3.6 MEQ/L Chloride Level 88 MEQ/L 100 MEQ/L Carbon Dioxide Level 18.8 MEQ/L 20.1 MEQ/L Anion Gap 15 MEQ/L 10 MEQ/L Estimat Glomerular Filtration Rate 32 ML/MIN 41 ML/MIN Lactic Acid Level 3.2 mmol/L 2.1 mmol/L B-Hydroxybutyrate 0.22 MMOL/L Urine Color YELLOW Urine Turbidity HAZY Urine pH 5.5 Urine Specific [place] 1.019 Urine Protein 100 mg/dL Urine Glucose (UA) 1000 mg/dL Urine Ketones NEG mg/dL Urine Occult Blood MOD Urine Nitrite NEG Urine Bilirubin NEG Urine Urobilinogen LESS THAN 2.0 MG/DL Urine Leukocyte Esterase NEG Urine RBC 29 /hpf Urine WBC 3 /hpf Urine Squamous Epithelial Cells <1 /hpf Urine Hyaline Casts 16 /lpf Urine Granular Casts 22 /lpf Microscopic Urinalysis Comment CULT NOT INDICATED Phosphorus Level 1.7 MG/DL Magnesium Level 1.7 MG/DL Protein Corrected Calcium 7.8 MG/DL Troponin I 2.47 NG/ML Test 07/02/17 04:00 07/02/17 04:24 07/02/17 13:00 07/02/17 16:50 Prothrombin Time 12.7 SEC Prothromb Time International Ratio 1.3 RATIO Activated Partial Thromboplast Time 27.8 SEC 27.4 SEC Lactic Acid Level 2.5 mmol/L 1.4 mmol/L Nasal Screen MRSA (PCR) MRSA NOT DETECTED White Blood Count 14.1 TH/MM3 Red Blood Count 3.43 MIL/MM3 Hemoglobin 8.3 GM/DL Hematocrit 25.1 % Mean Corpuscular Volume 73.1 FL Mean Corpuscular Hemoglobin 24.1 PG Mean Corpuscular Hemoglobin Concent 33.0 % Red Cell Distribution Width 20.1 % Platelet Count 390 TH/MM3 Mean Platelet Volume 7.5 FL Neutrophils (%) (Auto) 86.4 % Lymphocytes (%) (Auto) 5.6 % Monocytes (%) (Auto) 7.1 % Eosinophils (%) (Auto) 0.6 % Basophils (%) (Auto) 0.3 % Neutrophils # (Auto) 12.2 TH/MM3 Lymphocytes # (Auto) 0.8 TH/MM3 Monocytes # (Auto) 1.0 TH/MM3 Eosinophils # (Auto) 0.1 TH/MM3 Basophils # (Auto) 0.0 TH/MM3 CBC Comment DIFF FINAL Differential Comment Blood Urea Nitrogen 37 MG/DL Creatinine 1.43 MG/DL Random Glucose 239 MG/DL Calcium Level 7.8 MG/DL Sodium Level 132 MEQ/L Potassium Level 3.6 MEQ/L Chloride Level 102 MEQ/L Carbon Dioxide Level 20.3 MEQ/L Anion Gap 10 MEQ/L Estimat Glomerular Filtration Rate 51 ML/MIN Hemoglobin A1c 9.8 % Phosphorus Level 2.1 MG/DL Magnesium Level 1.7 MG/DL Total Creatine Kinase 114 U/L Creatine Kinase MB 3.2 NG/ML Troponin I 3.05 NG/ML Test 07/02/17 22:46 07/03/17 02:38 07/03/17 02:58 07/03/17 12:25 Troponin I 2.34 NG/ML 1.98 NG/ML Prothrombin Time 12.0 SEC Prothromb Time International Ratio 1.2 RATIO White Blood Count 12.5 TH/MM3 Red Blood Count 3.24 MIL/MM3 Hemoglobin 7.8 GM/DL 7.5 GM/DL Hematocrit 23.5 % 22.6 % Mean Corpuscular Volume 72.6 FL Mean Corpuscular Hemoglobin 24.1 PG Mean Corpuscular Hemoglobin Concent 33.2 % Red Cell Distribution Width 20.1 % Platelet Count 342 TH/MM3 Mean Platelet Volume 7.3 FL Neutrophils (%) (Auto) 82.2 % Lymphocytes (%) (Auto) 8.3 % Monocytes (%) (Auto) 7.2 % Eosinophils (%) (Auto) 2.1 % Basophils (%) (Auto) 0.2 % Neutrophils # (Auto) 10.2 TH/MM3 Lymphocytes # (Auto) 1.0 TH/MM3 Monocytes # (Auto) 0.9 TH/MM3 Eosinophils # (Auto) 0.3 TH/MM3 Basophils # (Auto) 0.0 TH/MM3 CBC Comment DIFF FINAL Differential Comment Blood Urea Nitrogen 34 MG/DL Creatinine 1.47 MG/DL Random Glucose 267 MG/DL Total Protein 5.8 GM/DL Albumin 1.5 GM/DL Calcium Level 7.3 MG/DL Phosphorus Level 2.6 MG/DL Magnesium Level 1.8 MG/DL Alkaline Phosphatase 147 U/L Aspartate Amino Transf (AST/SGOT) 23 U/L Alanine Aminotransferase (ALT/SGPT) 18 U/L Total Bilirubin 0.4 MG/DL Sodium Level 133 MEQ/L Potassium Level 3.8 MEQ/L Chloride Level 103 MEQ/L Carbon Dioxide Level 21.4 MEQ/L Anion Gap 9 MEQ/L Estimat Glomerular Filtration Rate 49 ML/MIN Protein Corrected Calcium 8.0 MG/DL Objective Remarks Dressings to bilateral lower extremities intact with drainage noted. Capillary refill time under 3 seconds to digits of left foot. Medications and IVs Current Medications Medications (Trade) Dose Ordered Sig/Tri Route Start Time Stop Time Status Last Admin (Sodium Bicarbonate 8.4% Inj) 100 meq UNSCH PRN IV PUSH 07/02/17 00:30 (Sodium Bicarbonate 8.4% Inj) 50 meq UNSCH PRN IV PUSH 07/02/17 00:30 Sodium Chloride 1,000 ml @ 125 mls/hr Q8H IV 07/02/17 01:21 07/03/17 15:40 (NS Flush) 2 ml UNSCH PRN IV FLUSH 07/02/17 01:30 (NS Flush) 2 ml BID IV FLUSH 07/02/17 09:00 07/02/17 20:46 (Tylenol) 650 mg Q6H PRN PO 07/02/17 01:30 (Morphine Inj) 2 mg Q2H PRN IV PUSH 07/02/17 01:30 (Pepcid Inj) 20 mg Q12HR IV PUSH 07/02/17 09:00 (Versed Inj) 2 mg Q1H PRN IV PUSH 07/02/17 01:30 (Zofran Inj) 4 mg Q6H PRN IV PUSH 07/02/17 01:30 07/02/17 09:33 (Duoneb Neb) 1 ampule Q2HR NEB PRN INH 07/02/17 01:30 07/02/17 05:00 (Heparin Inj) 5,000 units Q8HR SQ 07/02/17 06:00 Future Hold Miscellaneous Information 1 Q361D XX 07/02/17 01:30 (Chlorhexidine 2% Cloth) 3 pack Taper DAILY@04 TOP 07/02/17 04:00 06/28/18 03:59 (Chlorhexidine 2% Cloth) 3 pack UNSCH PRN TOP 07/02/17 01:30 (Emelia-Colace) 1 tab BID PO 07/02/17 09:00 (Senokot) 17.2 mg Q12H PRN PO 07/02/17 01:30 (Dulcolax Supp) 10 mg DAILY PRN RECTAL 07/02/17 01:30 (Lactulose Liq) 30 ml DAILY PRN PO 07/02/17 01:30 (Peridex 0.12% Liq) 15 ml BID@08,20 MT 07/02/17 08:00 Piperacillin Sod/ Tazobactam Sod 100 ml @ 200 mls/hr Q6H IV 07/02/17 04:00 07/03/17 15:40 (Lotrimin 1% Cream) 1 applic DAILY TOPICAL 07/02/17 09:00 (Roxicodone) 10 mg Q6H PRN PO 07/02/17 04:15 07/02/17 23:11 (Flomax) 0.4 mg HS PO 07/02/17 21:00 07/02/17 23:10 Vancomycin HCl 2000 mg/Sodium Chloride 520 ml @ 250 mls/hr Q24H IV 07/03/17 06:00 07/03/17 06:13 Miscellaneous Information SPECIFIC LAB TO BE DRAWN:VANCOMY... ONCE ONCE .XX 07/05/17 05:45 07/05/17 05:46 Pharmacy Profile Note 0 ml @ 0 mls/hr UNSCH OTHER 07/02/17 10:45 Potassium Chloride 100 ml @ 50 mls/hr Q2H PRN IV 07/02/17 16:30 (K-Lyte Cl Eff) 50 meq UNSCH PRN PO 07/02/17 16:30 Potassium Chloride 100 ml @ 25 mls/hr UNSCH PRN IV 07/02/17 16:30 Potassium Chloride 100 ml @ 50 mls/hr Q2H PRN IV 07/02/17 16:30 Magnesium Sulfate 4 gm/Sodium Chloride 100 ml @ 50 mls/hr UNSCH PRN IV 07/02/17 16:30 (Mag-Ox) 800 mg UNSCH PRN PO 07/02/17 16:30 Magnesium Sulfate 2 gm/Sodium Chloride 100 ml @ 50 mls/hr UNSCH PRN IV 07/02/17 16:30 (K-Phos) 2,000 mg Q4H PRN PO 07/02/17 16:30 Sodium Phosphate 30 mmol/Sodium Chloride 250 ml @ 42 mls/hr UNSCH PRN IV 07/02/17 16:30 07/02/17 18:34 (K-Phos) 2,000 mg UNSCH PRN PO/TUBE 07/02/17 16:30 Potassium Phosphate 30 mmol/ Sodium Chloride 260 ml @ 42 mls/hr UNSCH PRN IV 07/02/17 16:30 Potassium Chloride 100 ml @ 25 mls/hr Q4H PRN IV 07/02/17 16:45 (NovoLIN N INJ) 25 units HS SQ 07/02/17 21:00 07/02/17 20:45 (NovoLIN N INJ) 35 units DAILY SQ 07/03/17 09:00 (D50w (Vial) Inj) 50 ml UNSCH PRN IV PUSH 07/02/17 20:30 (Glucagon Inj) 1 mg UNSCH PRN OTHER 07/02/17 20:30 (NovoLOG SUPPLEMENTAL SCALE) 1 ACHS SLIDING SCALE SQ 07/02/17 21:00 07/03/17 17:12 Diltiazem HCl 125 mg/Sodium Chloride 125 ml @ 5 mls/hr TITRATE PRN IV 07/03/17 13:30 07/03/17 15:01 Assessment and Plan Assessment and Plan 57 year old male with left ankle septic arthritis with OM to fibula, tibia, talus Patient examined and evaluated Discussed MRI with radiologist, Dr. Harris who does not feel limb is salvageable secondary to degree of bone involvement After reviewing MRI and speaking with the radiologist in agreement that limb salvage is not an option at this point Patient will continue to become septic secondary to infection even if limb salvage was attempted Discussed below the knee amputation with patient in great detail At this time patient states he is refusing [id number] amputation Recommend vascular surgery consult for Slime Hansen DPM Jul 03, 2017 18:48
[2017-07-03 19:58] LABS: HEMATOCRIT 26.3 % (39.0-51.0); HEMOGLOBIN 8.7 GM/DL (13.0-17.0)
[2017-07-03] MEDS: TAMSULOSIN HCL 0.4 MG CAP PO SCH (20:00)
--- NOTE | 2017-07-03 23:14 | HHI.IDPN ---
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 Vital Signs Date Time Temp Pulse Resp B/P (MAP) Pulse Ox O2 Delivery O2 Flow Rate FiO2 07/03/17 23:00 120 111/77 07/03/17 22:00 112 07/03/17 20:00 127 07/03/17 20:00 97.5 127 34 132/68 (89) 91 07/03/17 19:44 96 Nasal Cannula 3.00 07/03/17 18:00 131 07/03/17 16:00 117 07/03/17 16:00 98.7 117 25 94/58 (70) 89 07/03/17 15:01 129 98/63 07/03/17 14:07 96.8 118 28 93/54 95 07/03/17 14:00 118 07/03/17 12:00 138 07/03/17 12:00 96.8 138 21 110/59 (76) 92 07/03/17 08:00 99.7 117 26 127/69 (88) 93 07/03/17 08:00 117 07/03/17 07:58 93 Nasal Cannula 4.00 07/03/17 06:00 94 07/03/17 04:00 96 21 115/69 (84) 95 07/03/17 04:00 96 07/03/17 02:00 97 07/03/17 00:00 98.1 112 22 136/64 (88) 96 07/03/17 00:00 112 07/03/17 07/03/17 07/04/17 15:00 23:00 07:00 Intake Total 1100 ml 1130 ml Output Total 1000 ml Balance 1100 ml 130 ml Intake Oral 480 ml IV Total 1100 ml 200 ml Packed Cells 400 ml Blood Product IV Normal Saline Flush 50 ml Output Urine Total 1000 ml . Laboratory Tests Test 07/02/17 03:20 07/02/17 16:50 07/03/17 02:58 07/03/17 12:25 White Blood Count 11.9 TH/MM3 14.1 TH/MM3 12.5 TH/MM3 Red Blood Count 2.68 MIL/MM3 3.43 MIL/MM3 3.24 MIL/MM3 Hemoglobin 6.2 GM/DL 8.3 GM/DL 7.8 GM/DL 7.5 GM/DL Hematocrit 19.1 % 25.1 % 23.5 % 22.6 % Mean Corpuscular Volume 71.0 FL 73.1 FL 72.6 FL Mean Corpuscular Hemoglobin 23.0 PG 24.1 PG 24.1 PG Mean Corpuscular Hemoglobin Concent 32.4 % 33.0 % 33.2 % Red Cell Distribution Width 18.3 % 20.1 % 20.1 % Platelet Count 293 TH/MM3 390 TH/MM3 342 TH/MM3 Mean Platelet Volume 7.4 FL 7.5 FL 7.3 FL Neutrophils (%) (Auto) 86.4 % 82.2 % Lymphocytes (%) (Auto) 5.6 % 8.3 % Monocytes (%) (Auto) 7.1 % 7.2 % Eosinophils (%) (Auto) 0.6 % 2.1 % Basophils (%) (Auto) 0.3 % 0.2 % Neutrophils # (Auto) 12.2 TH/MM3 10.2 TH/MM3 Lymphocytes # (Auto) 0.8 TH/MM3 1.0 TH/MM3 Monocytes # (Auto) 1.0 TH/MM3 0.9 TH/MM3 Eosinophils # (Auto) 0.1 TH/MM3 0.3 TH/MM3 Basophils # (Auto) 0.0 TH/MM3 0.0 TH/MM3 CBC Comment DIFF FINAL DIFF FINAL Differential Comment Test 07/03/17 19:36 Hemoglobin 8.7 GM/DL Hematocrit 26.3 % Laboratory Tests Test 07/02/17 00:10 07/02/17 03:20 07/02/17 04:24 07/02/17 16:50 Lactic Acid Level 2.1 mmol/L 2.5 mmol/L 1.4 mmol/L Blood Urea Nitrogen 44 MG/DL 37 MG/DL Creatinine 1.71 MG/DL 1.43 MG/DL Random Glucose 296 MG/DL 239 MG/DL Total Protein 6.4 GM/DL Calcium Level 7.4 MG/DL 7.8 MG/DL Phosphorus Level 1.7 MG/DL 2.1 MG/DL Magnesium Level 1.7 MG/DL 1.7 MG/DL Sodium Level 130 MEQ/L 132 MEQ/L Potassium Level 3.6 MEQ/L 3.6 MEQ/L Chloride Level 100 MEQ/L 102 MEQ/L Carbon Dioxide Level 20.1 MEQ/L 20.3 MEQ/L Anion Gap 10 MEQ/L 10 MEQ/L Estimat Glomerular Filtration Rate 41 ML/MIN 51 ML/MIN Protein Corrected Calcium 7.8 MG/DL Troponin I 2.47 NG/ML 3.05 NG/ML Hemoglobin A1c 9.8 % Total Creatine Kinase 114 U/L Creatine Kinase MB 3.2 NG/ML Test 07/02/17 22:46 07/03/17 02:58 07/03/17 12:25 Troponin I 2.34 NG/ML 1.98 NG/ML Blood Urea Nitrogen 34 MG/DL Creatinine 1.47 MG/DL Random Glucose 267 MG/DL Total Protein 5.8 GM/DL Albumin 1.5 GM/DL Calcium Level 7.3 MG/DL Phosphorus Level 2.6 MG/DL Magnesium Level 1.8 MG/DL Alkaline Phosphatase 147 U/L Aspartate Amino Transf (AST/SGOT) 23 U/L Alanine Aminotransferase (ALT/SGPT) 18 U/L Total Bilirubin 0.4 MG/DL Sodium Level 133 MEQ/L Potassium Level 3.8 MEQ/L Chloride Level 103 MEQ/L Carbon Dioxide Level 21.4 MEQ/L Anion Gap 9 MEQ/L Estimat Glomerular Filtration Rate 49 ML/MIN Protein Corrected Calcium 8.0 MG/DL Microbiology Date/Time Source Procedure Growth Status 07/02/17 16:50 Blood Peripheral Aerobic Blood Culture - Preliminary Gram Positive Cocci Resulted 07/02/17 16:50 Blood Peripheral Anaerobic Blood Culture - Preliminary NO GROWTH IN 1 DAY Resulted 07/02/17 16:45 Blood Peripheral Aerobic Blood Culture - Preliminary NO GROWTH IN 1 DAY Resulted 07/02/17 16:45 Blood Peripheral Anaerobic Blood Culture - Preliminary NO GROWTH IN 1 DAY Resulted 07/01/17 22:00 Blood Line Aerobic Blood Culture - Preliminary Streptococcus Species Staphylococcus Species Resulted 07/01/17 22:00 Anaerobic Blood Culture - Preliminary Streptococcus Species Staphylococcus Species Resulted 07/01/17 21:50 Blood Line Aerobic Blood Culture - Preliminary Staphylococcus Aureus Resulted 07/01/17 21:50 Anaerobic Blood Culture - Preliminary Group B Beta Strep Staphylococcus Species Resulted 07/02/17 01:50 Sputum Endotracheal Gram Stain - Final Resulted 07/02/17 01:50 Sputum Endotracheal Sputum Culture - Preliminary HEAVY GROWTH NORMAL RESPIRATORY RAGHU... Resulted 07/01/17 22:15 Nasal Washing Influenza Types A,B Antigen (SURI) - Final NEGATIVE FOR FLU A AND B ANTIGEN.... Complete 07/02/17 02:35 Urine Catheterized Urine Urine Culture - Final 50-100,000 CFU/ML MIXED RAGHU... Complete 07/02/17 04:50 Wound Foot Gram Stain - Final Resulted 07/02/17 04:50 Wound Culture - Preliminary Gram Negative Rafael Staphylococcus Species Group B Beta Strep Resulted Imaging Last Impressions Foot MRI 07/03/172013 Signed Impressions: Service Date/Time: Monday, July 03, 2017 08:58 - CONCLUSION: Extensive inflammatory changes beginning above the ankle extending through the hindfoot and forefoot as described above. Hugh Harris MD FACR Ankle MRI 07/03/17 0000 Signed Impressions: Service Date/Time: Monday, July 03, 2017 08:58 - CONCLUSION: The bulk of the inflammatory changes appear to be centered around the lateral malleolus and the joint. Septic arthritis is suspected. Osteomalacia of the distal fibula, distal tibia and talus are suspected. Septic joint is suspected. Wound communicates with the fibula with large fluid collection the flow tip of fibula. CT angiography would be of benefit to assess vascular in flow. Hugh Harris MD FACR Foot X-Ray 07/02/17 0000 Signed Impressions: Service Date/Time: June 19:12 - CONCLUSION: Possible lateral erosion of the fourth metatarsal head. Patient is scheduled for MRI. No other acute bony abnormalities are demonstrated. Patient is status post amputation of the fifth toe and resection of the fifth metatarsal. Drake Jarvis MD Chest X-Ray 07/01/172121 Signed Impressions: Service Date/Time: Saturday, July 01, 2017 21:34 - CONCLUSION: Normal examination. Jacob Pike MD Physical Exam CONSTITUTIONAL/GENERAL: This is an adequately nourished patient, in no apparent distress. Appears sick TUBES/LINES/DRAINS: SKIN: No jaundice, rashes, or lesions. Skin temperature appropriate. Not diaphoretic. CARDIOVASCULAR: irregular rate and rhythm without murmurs, gallops, or rubs. Afinb on monitor No JVD. Peripheral pulses symmetric. RESPIRATORY/CHEST: Symmetric, unlabored respirations. Clear to auscultation. Breath sounds equal bilaterally. No wheezes, rales, or rhonchi. GASTROINTESTINAL: Abdomen soft, non-tender, nondistended. No hepato-splenomegaly , or palpable masses. No guarding. Bowel sounds present. GENITOURINARY: Without palpable bladder distension. MUSCULOSKELETAL: Extremities without clubbing, cyanosis, Marked b/l feet deformities, R foot sp well healed 4-5 amputations L foot with dressing in place LYMPHATICS: No palpable cervical or supraclavicular adenopathy. NO inguinal lymphadenopathy NEUROLOGICAL: Awake and alert. Motor and sensory grossly within normal limits. Follows commands. Clear speech. Moves all extremities. PSYCHIATRIC: No obvious anxiety/depression. no apparent hallucinations or other psychotic thought process. Assessment & Plan Remarks Sepsis from infected L foot, gram positive L foot DFI and likely osteo given the chronicity of the problem - extemnsive osteo, septic ankele, unsalvagible limb, but pt refusing amputaiton - mixed aerobic/anaerobic, polimicrobial infx This is limb threatening, life threatening infeciton NSTEMI ARF Cough, can not exclude denise broncho pneumonaia, clx with nl resp raghu cont zosyn, vanco awaiting pt's decision prognosis for limb salavage is extremely poor, pt is at high risk for sepsis and further infectious coplications e.i. endocarditis, vertebral osteo and other conservative mngmnt with abx alone and/or I+D is not going to be successfull Coty Wolf MD Jul 03, 2017 23:14
[2017-07-04] VITALS (11 sets, daily range): BP systolic 110–117; BP diastolic 56–78; PULSE 87–118; RESP 20–25; TEMP 97.3–98.5; O2SAT 89–96
[2017-07-04] MEDS: CHLORHEXIDINE GLUCONATE 2 % 1 PACK (2 CLOTHS) TOP SCH (04:00)
[2017-07-04 05:31] LABS: AUTOMATED NEUTROPHIL # 9.2 TH/MM3 (1.8-7.7); BASOPHIL # 0.1 TH/MM3 (0-0.2); BASOPHIL % 0.5 % (0.0-2.0); EOSINOPHIL # 0.3 TH/MM3 (0-0.4); EOSINOPHIL % 2.8 % (0.0-4.0); HEMATOCRIT 25.4 % (39.0-51.0); HEMOGLOBIN 8.2 GM/DL (13.0-17.0); LYMPH % 12.5 % (9.0-44.0); LYMPHOCYTE # 1.6 TH/MM3 (1.0-4.8); MEAN CELL VOLUME 75.1 FL (80.0-100.0); MEAN CORPUSCULAR HEMOGLOBIN 24.3 PG (27.0-34.0); MEAN CORPUSCULAR HGB CONC 32.4 % (32.0-36.0); MEAN PLATELET VOLUME 7.5 FL (7.0-11.0); MONO % 10.9 % (0.0-8.0); MONOCYTE # 1.4 TH/MM3 (0-0.9); NEUT % 73.3 % (16.0-70.0); PLATELET COUNT 324 TH/MM3 (150-450); RED BLOOD COUNT 3.38 MIL/MM3 (4.50-5.90); RED CELL DISTRIBUTION WIDTH 21.3 % (11.6-17.2); WHITE BLOOD COUNT 12.6 TH/MM3 (4.0-11.0)
[2017-07-04] MEDS: PIPERACIL-TAZO 4.5 GM PREMIX 100 ML IV SCH ×2 (05:37→08:39)
[2017-07-04] MEDS: VANCOMYCIN INJ 2,000 MG in SODIUM CHLORID 0.9% 500 ML INJ 500 ML IV SCH (05:37)
[2017-07-04 05:53] LABS: BICARBONATE 17.6 MEQ/L (21.0-32.0); CALCIUM 7.4 MG/DL (8.5-10.1); CREATININE 1.75 MG/DL (0.60-1.30); MAGNESIUM 1.7 MG/DL (1.5-2.5)
[2017-07-04 06:13] LABS: CALCIUM-PROTEIN CORRECTED 7.9 MG/DL (8.5-10.1); TOTAL PROTEIN 6.2 GM/DL (6.4-8.2)
[2017-07-04] MEDS: SODIUM CHLOR 0.9% 1000 ML INJ 1,000 ML IV SCH (07:09)
[2017-07-04] MEDS: DILTIAZEM INJ 125 MG in SODIUM CHLORIDE 0.9% INJ 100 ML IV PRN ×2 (07:40→18:30)
[2017-07-04] MEDS: CHLORHEXIDINE 0.12% (ORAL KIT) 15 ML CUP MT SCH ×2 (08:00→20:00)
[2017-07-04] MEDS: INSULIN ASPART SUPPLEMENTAL SCALE SQ SCH ×4 (08:00→21:00)
[2017-07-04] MEDS: DOCUSATE SODIUM 50 MG/SENNA 8.6 MG TAB PO SCH ×2 (08:30→21:00)
[2017-07-04] MEDS: FAMOTIDINE 20 MG/2 ML VIAL IV PUSH SCH (08:30)
[2017-07-04] MEDS: SODIUM CHLORIDE 0.9% FLUSH 10 ML FLUSH IV FLUSH SCH ×2 (08:38→21:25)
[2017-07-04] MEDS: INSULIN HUMAN NPH 1,000 UNITS/10 ML VIAL SQ SCH ×2 (08:38→21:00)
[2017-07-04] MEDS: CLOTRIMAZOLE 1% CREAM 15 GM TOPICAL SCH (09:00)
[2017-07-04] MEDS ORDERED: RESP: ALBUTEROL 2.5 MG/3 ML NEB (PRN) NEB (11:45)
[2017-07-04] MEDS: AMPICILLIN-SULBACTAM INJ 3 GM in SODIUM CHLORIDE 0.9% INJ 100 ML IV SCH ×3 (12:00→23:49)
[2017-07-04] MEDS ORDERED: INSULIN HUMAN NPH 1,000 UNITS/10 ML VIAL SQ ONE (12:00)
--- NOTE | 2017-07-04 12:13 | HHI.CCPN ---
Subjective Remarks/Hospital Course 57-year-old male presents complaining of fever, coughing congestion, nausea vomiting, abdominal pain. Patient states that the symptoms started 4 days ago. Patient states that he has poor appetite. Patient has history of diabetes and blood sugars been running high at home. Patient states the abdominal pain is cramping pain intermittent pain associate with vomiting. Patient states that abdominal pain localized to lower abdomen. Patient denies any pain radiation. Patient denies any dysuria or frequency. He admits his cough is intermittent and mild productive. Patient denies any chest pain. Patient denies any shortness of breath. 07/03 No events overbright. Renal function is improving with Cr: 1.47 today. Off insulin drip. Afebrile. Subjective 07/04: Currently afebrile and hemodynamically stable. Remains on diltiazem drip at 15 mg an hour. Plan for two-part nuclear medicine stress test today and tomorrow. Requesting diet. Objective Vital Signs Date Time Temp Pulse Resp B/P (MAP) Pulse Ox O2 Delivery O2 Flow Rate FiO2 07/04/17 07:40 87 125/75 07/04/17 07:38 95 Nasal Cannula 4.00 07/04/17 04:00 97.3 24 Intake and Output 07/04/17 07/04/17 07/05/17 08:00 16:00 00:00 Intake Total 450 ml Output Total 500 ml Balance -50 ml Result Diagram: 07/04/1740907/04/17 0410 Other Results Microbiology Date/Time Source Procedure Growth Status 07/02/17 16:50 Blood Peripheral Aerobic Blood Culture - Final Staphylococcus Aureus Resulted 07/02/17 16:50 Blood Peripheral Anaerobic Blood Culture - Preliminary NO GROWTH IN 2 DAYS Resulted 07/02/17 01:50 Sputum Endotracheal Gram Stain - Final Resulted 07/02/17 01:50 Sputum Endotracheal Sputum Culture - Preliminary HEAVY GROWTH NORMAL RESPIRATORY DEE... Resulted 07/02/17 02:35 Urine Catheterized Urine Urine Culture - Final 50-100,000 CFU/ML MIXED DEE... Complete 07/02/17 04:50 Wound Foot Gram Stain - Final Resulted 07/02/17 04:50 Wound Culture - Preliminary Acinetobacter Baumannii/Haemol Staphylococcus Aureus Group B Beta Strep Resulted Imaging Last Impressions Foot MRI 07/03/172013 Signed Impressions: Service Date/Time: Monday, July 03, 2017 08:58 - CONCLUSION: Extensive inflammatory changes beginning above the ankle extending through the hindfoot and forefoot as described above. Hugh Harris MD FACR Ankle MRI 07/03/17 0000 Signed Impressions: Service Date/Time: Monday, July 03, 2017 08:58 - CONCLUSION: The bulk of the inflammatory changes appear to be centered around the lateral malleolus and the joint. Septic arthritis is suspected. Osteomalacia of the distal fibula, distal tibia and talus are suspected. Septic joint is suspected. Wound communicates with the fibula with large fluid collection the flow tip of fibula. CT angiography would be of benefit to assess vascular in flow. Hugh Harris MD FACR Foot X-Ray 07/02/17 0000 Signed Impressions: Service Date/Time: June 19:12 - CONCLUSION: Possible lateral erosion of the fourth metatarsal head. Patient is scheduled for MRI. No other acute bony abnormalities are demonstrated. Patient is status post amputation of the fifth toe and resection of the fifth metatarsal. Drake Jarvis MD Chest X-Ray 07/01/172121 Signed Impressions: Service Date/Time: Saturday, July 01, 2017 21:34 - CONCLUSION: Normal examination. Jacob Pike MD Objective Remarks GENERAL: 49-year-old male, currently on nasal cannula and diltiazem drip in no acute distress SKIN: Focused skin assessment warm/dry. Left lower extremity is currently wrapped in Kerlix with some serosanguineous drainage HEAD: Normocephalic. EYES: No scleral icterus. No injection or drainage. Throat: Nonerythematous. NECK: Supple, trachea midline. No JVD or lymphadenopathy. No meningismus CARDIOVASCULAR: RRR. S1, S2 no S4. Without murmur. RESPIRATORY: Breath sounds equal bilaterally. No accessory muscle use. GASTROINTESTINAL: Abdomen soft, non-tender, nondistended. MUSCULOSKELETAL: No cyanosis, bilateral chronic venous status changes, chronic stasis ulcerations to the left heel Neuro: Cranial nerves II through XII grossly intact. Strength appears equal symmetric. A/P Assessment and Plan Neuro/Psych: Anxiety disorder NOS Chronic narcotic use Acetaminophen 650 mg by mouth every 6 hours when necessary fever/pain 1-5 Morphine sulfate 2 mg IV distress. Pain 6 out of 10 Oxycodone 10 mg by mouth every 6 hours. Pain 1-10 EEG: No seizures Pulm: Acute respiratory insufficiency Oxygen PRN keep sat >92% Incentive spirometry while awake Albuterol/ipratropium aerosols every 6 hours with albuterol aerosols every 2 hours. Dyspnea CV: Hypertension Non-STEMI Elevated troponin Monitor HR and BP keep MAP>65mmHg Pending echo to eval Lv function. Cards is following- Dr. Tucker. Discussed with Dr. Tucker. This patient is at high risk for any surgical intervention. Patient can not be cleared for surgery till he gets stress test. FEN/Renal/: Acute kidney injury in the setting chronic kidney disease stage IIIa Hyponatremia Hypophosphatemia Erectile dysfunction BPH Will received 30 mmol sodium phosphate IV 1 now. Decrease normal saline to 75 cc now rolling by mouth 2 g mag sulfate IV 1 now. Replace electrolytes as clinically indicated Monitor urine output Accurate I's and O's Avoid nephrotoxic medications Hold Tadalafil 10 mg daily Tamsulosin 0.4 mg by mouth daily GI: Hypoalbuminemia Continue ADA diet Famotidine 20 mg by mouth daily for GI prophylaxis Docusate sodium/senna 1 tablet twice a day for bowel regimen ID: Staph aureus/group B beta strep bacteremia Septic arthritis left lower extremity Diabetic foot ulcer Abx per ID, monitor for signs of infections ( Fever, WBC). Nasal washing negative for Influenza MRI left lower extremity revealed left septic joint arthritis, degenerative changes of fibula, distal tibia and talus. Abscess/joint effusion and bone marrow edema noted. ID, Podiatry is following Vascular surgeon following as well BC 07/01: Group B beta strep staph aureus 07/02 - wound culture - Acinetobacter, staph aureus, group A beta strep Heme: Microcytic anemia Leukocytosis Monitor CBC daily. Follow trends Endo: Diabetes mellitus Humulin R u-500 35 units in the morning 25 units at night. Novulin N -100 sliding-scale insulin at home SSI High Novulog ac/HS at this facility DVT GI prophylaxis - SCD, no on chemical AC prophylaxis due to anemia on arrival requiring blood transfusion. -Famotidine Patient has been non compliant and non cooperative with nursing staff and consultants. Level 3 Randall Torres MD Jul 04, 2017 12:13
--- NOTE | 2017-07-04 12:58 | HHI.GIFU ---
Subjective Remarks Pt resting in bed, eating lunch. In no apparent distress. Reports he has not had a BM. (Andreina Buchanan) Objective Vitals I&O Vital Signs Date Time Temp Pulse Resp B/P (MAP) Pulse Ox O2 Delivery O2 Flow Rate FiO2 07/04/17 07:40 87 125/75 07/04/17 07:38 95 Nasal Cannula 4.00 07/04/17 06:00 94 07/04/17 04:00 97.3 92 24 110/67 (81) 89 07/04/17 04:00 92 07/04/17 03:56 18 07/04/17 02:00 94 07/04/17 00:00 98 07/04/17 00:00 97.8 98 25 110/65 (80) 92 07/03/17 23:00 120 111/77 07/03/17 22:00 112 07/03/17 20:00 127 07/03/17 20:00 97.5 127 34 132/68 (89) 91 07/03/17 19:44 96 Nasal Cannula 3.00 07/03/17 18:00 131 07/03/17 16:00 117 07/03/17 16:00 98.7 117 25 94/58 (70) 89 07/03/17 15:01 129 98/63 07/03/17 14:07 96.8 118 28 93/54 95 07/03/17 14:00 118 I/O 07/03/17 07/03/17 07/03/17 07/04/17 07/04/17 07/04/17 07:00 15:00 23:00 07:00 15:00 23:00 Intake Total 1750 ml 1100 ml 1230 ml 450 ml Output Total 1000 ml 1000 ml 500 ml Balance 750 ml 1100 ml 230 ml -50 ml Intake Oral 400 ml 480 ml 350 ml IV Total 1350 ml 1100 ml 300 ml 100 ml Packed Cells 400 ml Blood Product IV Normal Saline Flush 50 ml Output Urine Total 1000 ml 1000 ml 500 ml Stool Total 0 ml 0 ml Laboratory Laboratory Tests Test 07/03/17 19:36 07/04/17 04:10 Hemoglobin 8.7 8.2 Hematocrit 26.3 25.4 White Blood Count 12.6 Red Blood Count 3.38 Mean Corpuscular Volume 75.1 Mean Corpuscular Hemoglobin 24.3 Mean Corpuscular Hemoglobin Concent 32.4 Red Cell Distribution Width 21.3 Platelet Count 324 Mean Platelet Volume 7.5 Neutrophils (%) (Auto) 73.3 Lymphocytes (%) (Auto) 12.5 Monocytes (%) (Auto) 10.9 Eosinophils (%) (Auto) 2.8 Basophils (%) (Auto) 0.5 Neutrophils # (Auto) 9.2 Lymphocytes # (Auto) 1.6 Monocytes # (Auto) 1.4 Eosinophils # (Auto) 0.3 Basophils # (Auto) 0.1 CBC Comment DIFF FINAL Differential Comment Blood Urea Nitrogen 41 Creatinine 1.75 Random Glucose 294 Total Protein 6.2 Calcium Level 7.4 Phosphorus Level 2.0 Magnesium Level 1.7 Sodium Level 128 Potassium Level 4.2 Chloride Level 100 Carbon Dioxide Level 17.6 Anion Gap 10 Estimat Glomerular Filtration Rate 40 Protein Corrected Calcium 7.9 Date/Time Source Procedure Growth Status 07/02/17 16:50 Blood Peripheral Aerobic Blood Culture - Final Staphylococcus Aureus Resulted 07/02/17 16:50 Blood Peripheral Anaerobic Blood Culture - Preliminary NO GROWTH IN 2 DAYS Resulted 07/02/17 01:50 Sputum Endotracheal Gram Stain - Final Resulted 07/02/17 01:50 Sputum Endotracheal Sputum Culture - Preliminary HEAVY GROWTH NORMAL RESPIRATORY DEE... Resulted 07/02/17 02:35 Urine Catheterized Urine Urine Culture - Final 50-100,000 CFU/ML MIXED DEE... Complete 07/02/17 04:50 Wound Foot Gram Stain - Final Resulted 07/02/17 04:50 Wound Culture - Preliminary Acinetobacter Baumannii/Haemol Staphylococcus Aureus Group B Beta Strep Resulted Imaging Last Impressions Foot MRI 07/03/17 2014 Signed Impressions: Service Date/Time: Monday, July 03, 2017 08:58 - CONCLUSION: Extensive inflammatory changes beginning above the ankle extending through the hindfoot and forefoot as described above. Hugh Harris MD FACR Ankle MRI 07/03/17 0000 Signed Impressions: Service Date/Time: Monday, July 03, 2017 08:58 - CONCLUSION: The bulk of the inflammatory changes appear to be centered around the lateral malleolus and the joint. Septic arthritis is suspected. Osteomalacia of the distal fibula, distal tibia and talus are suspected. Septic joint is suspected. Wound communicates with the fibula with large fluid collection the flow tip of fibula. CT angiography would be of benefit to assess vascular in flow. Hugh Harris MD FACR Foot X-Ray 07/02/17 0000 Signed Impressions: Service Date/Time: June 19:12 - CONCLUSION: Possible lateral erosion of the fourth metatarsal head. Patient is scheduled for MRI. No other acute bony abnormalities are demonstrated. Patient is status post amputation of the fifth toe and resection of the fifth metatarsal. Drake Jarvis MD Chest X-Ray 07/01/172121 Signed Impressions: Service Date/Time: Saturday, July 01, 2017 21:34 - CONCLUSION: Normal examination. Jacob Pike MD Physical Exam HEENT: Normocephalic; atraumatic CHEST: Even/unlabored CARDIAC: Irregular ABDOMEN: Distended, semi-firm, nontender, bowel sounds active EXTREMITIES: BLE edema SKIN: Normal; no rash; no jaundice. STAVE HEWER: No focal deficits; alert and oriented times three. (Andreina Buchanan) Assessment and Plan Assessment: (1) Tachycardia ICD Codes: R00.0 - Tachycardia, unspecified (2) Anemia ICD Codes: D64.9 - Anemia, unspecified (3) Upper GI bleed ICD Codes: K92.2 - Gastrointestinal hemorrhage, unspecified (4) DM (diabetes mellitus) ICD Codes: E11.9 - Type 2 diabetes mellitus without complications Status: Chronic Plan Assessment: - Anemia- Microcytic, hypochromic. H/H currently 8.2/25.4 S/P 3 U PRBCs, last one transfused yesterday. Pt does report vomiting last week and reports hematemesis on . Currently no N/V. Would recommend EGD when pt more stable. Will add Protonix. HR remains irregular with RVR, pt on Cardizem gtt. Pt advised to have BKA for osteomyelitis with poor chance for limb salvage. Vascular surgery and orthopedics following. Plan: - Protonix - EGD when clinically stable - Monitor H/H - Transfuse as needed - Supportive care This pt has been seen and examined by myself and Dr. Michel and this note is written on her behalf (Andreina Buchanan) Physician Comments agree with above he had a large bowel movement , better He also describes retrosternal pain when he eats , mostly in upper chest , cannot eat meat I tried to get more details, asked him different questions, got very angry and sates he will not answer any more questions and that I can leave, he will talk with me later very uncooperative, very difficult personality consider psych consult?-as per primary we will recommend Ba swallow , speech therapy for now consider cariology consult -as per primary (Rachel Michel MD) Andreina Buchanan Jul 04, 2017 12:58 Rachel Michel MD Jul 04, 2017 17:31
[2017-07-04] MEDS ORDERED: SODIUM PHOSPHATE INJ 30 MMOL in SODIUM CHLOR 0.9% 250 ML INJ 250 ML IV ONE (13:00)
[2017-07-04] MEDS: MAGNESIUM SULFATE 1 GM PREMIX 100 ML IV SCH ×2 (13:07→18:07)
[2017-07-04] MEDS: DILTIAZEM HCL 30 MG TAB PO SCH ×3 (13:07→21:20)
--- NOTE | 2017-07-04 14:02 | ECHRPT ---
Indication: CORONARY ATHEROSCLEROSIS CONCLUSIONS The left ventricular systolic function is moderately reduced with an estimated ejection fraction in the range of 40-45%. with anteroseptal hypokinesis. Mild thickening of the mitral valve leaflets. Mild mitral valve regurgitation. There is trace tricuspid valve regurgitation. There is estimated mild pulmonary hypertension present (range 40-50 mmHg). The inferior vena cava is dilated. There is less than 50% respiratory change in dimension of the inferior vena cava (abnormal). BP: 118 / 64 HR: 87 Rhythm: Atrial fibrillation MEASUREMENTS (Male / Female) Normal Values Technical Quality:Fair 2D ECHO LV Diastolic Diameter PLAX 5.0 cm 4.2 - 5.9 / 3.9 - 5.3 cm LV Systolic Diameter PLAX 3.9 cm IVS Diastolic Thickness 1.4 cm 0.6 - 1.0 / 0.6 - 0.9 cm LVPW Diastolic Thickness 1.4 cm 0.6 - 1.0 / 0.6 - 0.9 cm LV Relative Wall Thickness 0.5 LVOT Diameter 2.0 cm LV Ejection Fraction MOD 4C 49.3 % LV Cardiac Index MOD 4C 3686.4 cm/minm LV Ejection Fraction 4C AL 48.9 % LV Cardiac Index 4C AL 3787.3 cm/minm M-MODE Aortic Root Diameter MM 3.5 cm LA Systolic Diameter MM 5.2 cm LA Ao Ratio MM 1.5 AV Cusp Separation MM 2.5 cm DOPPLER AV Peak Velocity 140.0 cm/s AV Peak Gradient 7.8 mmHg AI Peak Velocity 220.0 cm/s AI Peak Gradient 19.4 mmHg AI Pressure Half Time 669.0 ms LVOT Peak Velocity 90.3 cm/s LVOT Peak Gradient 3.3 mmHg AV Area Cont Eq pk 2.0 cm MV Area PHT 3.5 cm LV E' Lateral Velocity 12.2 cm/s LV E' Septal Velocity 8.0 cm/s TR Peak Velocity 294.0 cm/s TR Peak Gradient 34.6 mmHg Right Atrial Pressure 10.0 mmHg Pulmonary Artery Systolic Pressu 44.6 mmHg Right Ventricular Systolic Press 44.6 mmHg PV Peak Velocity 89.6 cm/s PV Peak Gradient 3.2 mmHg FINDINGS LEFT VENTRICLE The left ventricular systolic function is moderately reduced with an estimated ejection fraction in the range of 40-45%. with anteroseptal hypokinesis. RIGHT VENTRICLE Normal right ventricular size and systolic function. LEFT ATRIUM The left atrial size is normal. RIGHT ATRIUM The right atrial size is normal. ATRIAL SEPTUM Normal atrial septal thickness without atrial level shunting by limited color doppler interrogation. AORTA The aortic root and proximal ascending aorta are normal in size on limited imaging. MITRAL VALVE Mild thickening of the mitral valve leaflets. Mild mitral valve regurgitation. AORTIC VALVE Trileaflet aortic valve. No aortic valve stenosis or regurgitation. TRICUSPID VALVE Structurally normal tricuspid valve. There is trace tricuspid valve regurgitation. There is estimated mild pulmonary hypertension present (range 40-50 mmHg). PULMONARY VALVE No pulmonary valve regurgitation or stenosis. VESSELS The inferior vena cava is dilated. There is less than 50% respiratory change in dimension of the inferior vena cava (abnormal). PERICARDIUM No pericardial effusion. Eliecer Rubio MD (Electronically Signed) Final Date:04 July 2017 14:01
--- NOTE | 2017-07-04 14:55 | MB ---
cc: MEME ROQUE M.D. DATE OF CONSULTATION: 07/04/2017 REASON FOR CONSULTATION: Requested to evaluate septic left ankle. HISTORY OF PRESENT ILLNESS Luther Lucas is a 57 year old insulin dependent diabetic male with peripheral neuropathy who has chronic wounds involving both of his feet. He states that the process in the right foot has been going on for many years. He has a complete rotation of the foot on the right side and he walks on the lateral aspect of the foot. He states that the left foot has been going on only for four months but it has a similar appearance of complete varus 90 degree angle. He was admitted on 07/01/2017 for this worsening infectious process involving the left foot which has been going on for at least six weeks. At that time he had a cough, fever, throbbing abdominal pain which had marginally worsened over four days. He was diagnosed with hyperglycemic, hyperosmolar isonicotinic syndrome. He has a draining wound for which cultures were started, he has been under the care of the wound care center, multiple places, podiatry was consulted and he had intensive medical management and was admitted to the Intensive Care Unit. He initially had MRI scheduled for the foot but with the ankle involvement the ankle MRI was also done which showed high suspicion of sepsis in the ankle joint with changes in bone involving the talus, the distal tibia and particularly the distal fibula with the #1 location of infectious process involving the distal fibula. The patient states that the vast majority of the drainage on the foot is on the lateral side of the foot. He states that he is not having pain associated with this as he has significant peripheral neuropathy. Initial white blood cell count on admission to the hospital is 16.7. The patient is on multiple medications which have been reviewed. The patient reports an allergy to codeine, he has a history of prior multidrug resistant organisms. PHYSICAL EXAMINATION: IN GENERAL: The patient is alert and oriented, somewhat dogmatic and authoritarian and demanding. He states that he was advised to have amputation on the right lower extremity many times and he never had that and he still is anticipating reconstructive surgery upcoming. Bilateral upper extremities are intact. The right lower extremity shows missing 5th ray, has healed wound on the lateral border of the foot. He has complete varus of his foot with a healed wound on the lateral aspect of this foot, where he ambulates. The left ankle has dressing in place, this is partially taken down we see a wound involving the lateral aspect of the ankle and foot. Both toes are in sensate, they will slightly flex and distend. He has equally severe deformity and varus on the left ankle that he does on the right. Blood flow study shows that he does appear to have blood flow intact to the foot. MRI scan of the foot and ankle is reviewed and shows abscess formation in the soft tissue as well as the open wound as well as edematous change within the bones consistent with suspected osteomyelitis as well as fluid in the joint consistent with probable sepsis. ASSESSMENT: Left ankle sepsis with probable osteomyelitis of the fibula and possibility tibia and talus and insulin dependent diabetic male with severe deformity of the foot. MEDICAL DECISION MAKING: His condition was discussed and the options of treatment were discussed. The likelihood of salvaging the foot is extremely low with this bad of an infectious process in this bad of a deformity. I emphasized that my number one recommendation is below-knee amputation and this most likely would result in successful healing at amputation site mid leg and the ability to use a prosthesis. Going without this type of intervention placed him at higher risk of spreading the infection to other areas of the body as well as continued care which will be mandated for a long period of time for the left lower extremity which is unlikely to ultimately heal. All of this being said he is refusing amputation type surgery right now but he is amenable to irrigation and debridement. Therefore, if he can be medically cleared then the recommendation is to proceed with irrigation and debridement of the left foot and ankle and ankle joint. The risks, benefits and alternatives to treatment were discussed, with the number one recommendation is the transtibial amputation but he understands that there is a high probability of continued infection in the foot. Suspect there to be continued wound problem. We talked about the possibility of placing a vac assistive wound device. We talked about the risks, injuries to nerves, blood vessels, possibly for transfusion, anesthetic complications, medical complications and proceeding hospital complications. All of his questions were answered, informed consent was obtained. MD JAMIE Butcher/alexandr /1:53 PM /2:03 PM
[2017-07-04] MEDS: RESP: ALBUTEROL 2.5 MG/IPRATROPIUM 0.5 MG NEB (SCH) NEB ×2 (15:03→22:28)
[2017-07-04] MEDS ORDERED: REGADENOSON INJ 0.4 MG/5 ML SYR ONE (15:07)
--- NOTE | 2017-07-04 15:52 | RADRPT ---
EXAM DATE/TIME: 07/04/2017 14:17 [facility] COMPARISON: CHEST SINGLE AP, July 01, 2017, 21:34. INDICATIONS : Chest pain with nausea and vomiting for one week. Stent. DOSE: 30.3 mCi Tc99m Myoview at stress. 10.3 mCi Tc99m Myoview at rest. 0.4 mg Lexiscan STRESS SYMPTOMS: Shortness of breath. EJECTION FRACTION: 24% MEDICAL HISTORY : Hypertension. Diabetes mellitus type 2. Prior percutaneous angioplasty and stent placement. SURGICAL HISTORY : Appendectomy. Bilateral feet. ENCOUNTER: Initial ACUITY: 1 week PAIN SCALE: 3/10 LOCATION: chest TECHNIQUE: The patient underwent pharmacologic stress with infusion of prescribed dose. Continuous ECG tracing was monitored during stress. Gated SPECT imaging was performed after stress and conventional SPECT i maging was performed at rest. The examination was performed on a SPECT/CT scanner, both attenuation and non-corrected datasets were reviewed. FINDINGS: DISTRIBUTION: The maximum perfused segment at stress is in the anterior wall. PERFUSION STUDY: There is a some stress score 17 with large fixed apical wall defect. There is no reversibility on the rest images. GATED STUDY: There is akinesis in the apex and diffuse global hypokinesis. There is a decreased calculated ejectio n fraction of 24%. CONCLUSION: 1. Large fixed apical defect consistent with an area of infarction. There is no definite reversibilit y to suggest ischemia. 2. Markedly decreased calculated ejection fraction of 24% with akinesis in the apex and global hypoki nesis. RISK CATEGORY: High (>3% Annual Mortality Rate) Noe Skinner MD on July 04, 2017 at 15:44 Board Certified Radiologist. This report was verified electronically.
[2017-07-04] MEDS: PANTOPRAZOLE SODIUM 40 MG VIAL IV PUSH SCH (18:03)
--- NOTE | 2017-07-04 18:21 | PD.CAR.PN ---
CVT Progress Note Subjective/Hospital Course: Consult received Full dictation to follow 07/04/17 Today on my arrival to ICU patient had just left for the stress test site could not examine him and talked to the patient Will talk to the patient tomorrow and make vascular recommendations Thanks Deonna Objective: Vital Signs Date Time Temp Pulse Resp B/P (MAP) Pulse Ox O2 Delivery O2 Flow Rate FiO2 07/04/17 07:40 87 125/75 07/04/17 07:38 95 Nasal Cannula 4.00 07/04/17 06:00 94 07/04/17 04:00 97.3 92 24 110/67 (81) 89 07/04/17 04:00 92 07/04/17 03:56 18 07/04/17 02:00 94 07/04/17 00:00 98 07/04/17 00:00 97.8 98 25 110/65 (80) 92 07/03/17 23:00 120 111/77 07/03/17 22:00 112 07/03/17 20:00 127 07/03/17 20:00 97.5 127 34 132/68 (89) 91 07/03/17 19:44 96 Nasal Cannula 3.00 Result Diagram: 07/04/17 0410 07/04/17 0410 (1) Angina pectoris (2) Elevated troponin (3) Uncontrolled type 2 DM with hyperosmolar nonketotic hyperglycemia Larisa Hernández MD Jul 04, 2017 18:21
--- NOTE | 2017-07-04 19:38 | HHI.PR ---
Subjective Remarks Patient seen bedside. States Ortho Evra be taking him for incision and drainage tomorrow in the a.m. Completed his stress test. Continued nausea and vomiting and denies fevers or chills. Objective Vital Signs Date Time Temp Pulse Resp B/P (MAP) Pulse Ox O2 Delivery O2 Flow Rate FiO2 07/04/17 18:30 114 117/78 07/04/17 16:00 98.5 118 24 117/78 (91) 95 07/04/17 12:00 98.1 109 20 113/68 (83) 93 07/04/17 08:00 98.1 87 20 114/75 (88) 93 07/04/17 07:40 87 125/75 07/04/17 07:38 95 Nasal Cannula 4.00 07/04/17 06:00 94 07/04/17 04:00 97.3 92 24 110/67 (81) 89 07/04/17 04:00 92 07/04/17 03:56 18 07/04/17 02:00 94 07/04/17 00:00 98 07/04/17 00:00 97.8 98 25 110/65 (80) 92 07/03/17 23:00 120 111/77 07/03/17 22:00 112 07/03/17 20:00 127 07/03/17 20:00 97.5 127 34 132/68 (89) 91 07/03/17 19:44 96 Nasal Cannula 3.00 I/O 07/03/17 07/03/17 07/03/17 07/04/17 07/04/17 07/04/17 07:00 15:00 23:00 07:00 15:00 23:00 Intake Total 1750 ml 1100 ml 1230 ml 450 ml 720 ml 300 ml Output Total 1000 ml 1000 ml 500 ml Balance 750 ml 1100 ml 230 ml -50 ml 720 ml 300 ml Intake Oral 400 ml 480 ml 350 ml IV Total 1350 ml 1100 ml 300 ml 100 ml 720 ml 300 ml Packed Cells 400 ml Blood Product IV Normal Saline Flush 50 ml Output Urine Total 1000 ml 1000 ml 500 ml Stool Total 0 ml 0 ml Result Diagram: 07/04/1740907/04/17 0410 Imaging Last Impressions Myocardial Perfusion Scan Nuc Med 07/04/17 0800 Signed Impressions: Service Date/Time: Tuesday, July 04, 2017 14:17 - CONCLUSION: 1. Large fixed apical defect consistent with an area of infarction. There is no definite reversibility to suggest ischemia. 2. Markedly decreased calculated ejection fraction of 24%% with akinesis in the apex and global hypokinesis. RISK CATEGORY: High (>3%% Annual Mortality Rate) Noe Skinner MD Foot MRI 07/03/172013 Signed Impressions: Service Date/Time: Monday, July 03, 2017 08:58 - CONCLUSION: Extensive inflammatory changes beginning above the ankle extending through the hindfoot and forefoot as described above. Hugh Harris MD FACR Ankle MRI 07/03/17 0000 Signed Impressions: Service Date/Time: Monday, July 03, 2017 08:58 - CONCLUSION: The bulk of the inflammatory changes appear to be centered around the lateral malleolus and the joint. Septic arthritis is suspected. Osteomalacia of the distal fibula, distal tibia and talus are suspected. Septic joint is suspected. Wound communicates with the fibula with large fluid collection the flow tip of fibula. CT angiography would be of benefit to assess vascular in flow. Hugh Harris MD FACR Foot X-Ray 07/02/17 0000 Signed Impressions: Service Date/Time: June 19:12 - CONCLUSION: Possible lateral erosion of the fourth metatarsal head. Patient is scheduled for MRI. No other acute bony abnormalities are demonstrated. Patient is status post amputation of the fifth toe and resection of the fifth metatarsal. Drake Jarvis MD Chest X-Ray 07/01/172121 Signed Impressions: Service Date/Time: Saturday, July 01, 2017 21:34 - CONCLUSION: Normal examination. Jacob Pike MD Other Results Laboratory Tests Test 07/02/17 22:46 07/03/17 02:38 07/03/17 02:58 07/03/17 12:25 Troponin I 2.34 NG/ML 1.98 NG/ML Prothrombin Time 12.0 SEC Prothromb Time International Ratio 1.2 RATIO White Blood Count 12.5 TH/MM3 Red Blood Count 3.24 MIL/MM3 Hemoglobin 7.8 GM/DL 7.5 GM/DL Hematocrit 23.5 % 22.6 % Mean Corpuscular Volume 72.6 FL Mean Corpuscular Hemoglobin 24.1 PG Mean Corpuscular Hemoglobin Concent 33.2 % Red Cell Distribution Width 20.1 % Platelet Count 342 TH/MM3 Mean Platelet Volume 7.3 FL Neutrophils (%) (Auto) 82.2 % Lymphocytes (%) (Auto) 8.3 % Monocytes (%) (Auto) 7.2 % Eosinophils (%) (Auto) 2.1 % Basophils (%) (Auto) 0.2 % Neutrophils # (Auto) 10.2 TH/MM3 Lymphocytes # (Auto) 1.0 TH/MM3 Monocytes # (Auto) 0.9 TH/MM3 Eosinophils # (Auto) 0.3 TH/MM3 Basophils # (Auto) 0.0 TH/MM3 CBC Comment DIFF FINAL Differential Comment Blood Urea Nitrogen 34 MG/DL Creatinine 1.47 MG/DL Random Glucose 267 MG/DL Total Protein 5.8 GM/DL Albumin 1.5 GM/DL Calcium Level 7.3 MG/DL Phosphorus Level 2.6 MG/DL Magnesium Level 1.8 MG/DL Alkaline Phosphatase 147 U/L Aspartate Amino Transf (AST/SGOT) 23 U/L Alanine Aminotransferase (ALT/SGPT) 18 U/L Total Bilirubin 0.4 MG/DL Sodium Level 133 MEQ/L Potassium Level 3.8 MEQ/L Chloride Level 103 MEQ/L Carbon Dioxide Level 21.4 MEQ/L Anion Gap 9 MEQ/L Estimat Glomerular Filtration Rate 49 ML/MIN Protein Corrected Calcium 8.0 MG/DL Test 07/03/17 19:36 07/04/17 04:10 Hemoglobin 8.7 GM/DL 8.2 GM/DL Hematocrit 26.3 % 25.4 % White Blood Count 12.6 TH/MM3 Red Blood Count 3.38 MIL/MM3 Mean Corpuscular Volume 75.1 FL Mean Corpuscular Hemoglobin 24.3 PG Mean Corpuscular Hemoglobin Concent 32.4 % Red Cell Distribution Width 21.3 % Platelet Count 324 TH/MM3 Mean Platelet Volume 7.5 FL Neutrophils (%) (Auto) 73.3 % Lymphocytes (%) (Auto) 12.5 % Monocytes (%) (Auto) 10.9 % Eosinophils (%) (Auto) 2.8 % Basophils (%) (Auto) 0.5 % Neutrophils # (Auto) 9.2 TH/MM3 Lymphocytes # (Auto) 1.6 TH/MM3 Monocytes # (Auto) 1.4 TH/MM3 Eosinophils # (Auto) 0.3 TH/MM3 Basophils # (Auto) 0.1 TH/MM3 CBC Comment DIFF FINAL Differential Comment Blood Urea Nitrogen 41 MG/DL Creatinine 1.75 MG/DL Random Glucose 294 MG/DL Total Protein 6.2 GM/DL Calcium Level 7.4 MG/DL Phosphorus Level 2.0 MG/DL Magnesium Level 1.7 MG/DL Sodium Level 128 MEQ/L Potassium Level 4.2 MEQ/L Chloride Level 100 MEQ/L Carbon Dioxide Level 17.6 MEQ/L Anion Gap 10 MEQ/L Estimat Glomerular Filtration Rate 40 ML/MIN Protein Corrected Calcium 7.9 MG/DL Objective Remarks Dressings to bilateral lower extremities intact with drainage noted. Capillary refill time under 3 seconds to digits of left foot. Medications and IVs Current Medications Medications (Trade) Dose Ordered Sig/Tri Route Start Time Stop Time Status Last Admin (Sodium Bicarbonate 8.4% Inj) 100 meq UNSCH PRN IV PUSH 07/02/17 00:30 (Sodium Bicarbonate 8.4% Inj) 50 meq UNSCH PRN IV PUSH 07/02/17 00:30 Sodium Chloride 1,000 ml @ 75 mls/hr [id number] IV 07/02/17 01:21 07/04/17 07:09 (NS Flush) 2 ml UNSCH PRN IV FLUSH 07/02/17 01:30 (NS Flush) 2 ml BID IV FLUSH 07/02/17 09:00 07/04/17 08:38 (Tylenol) 650 mg Q6H PRN PO 07/02/17 01:30 (Morphine Inj) 2 mg Q2H PRN IV PUSH 07/02/17 01:30 (Versed Inj) 2 mg Q1H PRN IV PUSH 07/02/17 01:30 (Zofran Inj) 4 mg Q6H PRN IV PUSH 07/02/17 01:30 07/02/17 09:33 (Heparin Inj) 5,000 units Q8HR SQ 07/02/17 06:00 Future Hold Miscellaneous Information 1 Q361D XX 07/02/17 01:30 (Chlorhexidine 2% Cloth) 3 pack Taper DAILY@04 TOP 07/02/17 04:00 06/28/18 03:59 (Chlorhexidine 2% Cloth) 3 pack UNSCH PRN TOP 07/02/17 01:30 (Emelia-Colace) 1 tab BID PO 07/02/17 09:00 07/04/17 08:30 (Senokot) 17.2 mg Q12H PRN PO 07/02/17 01:30 (Dulcolax Supp) 10 mg DAILY PRN RECTAL 07/02/17 01:30 (Lactulose Liq) 30 ml DAILY PRN PO 07/02/17 01:30 (Peridex 0.12% Liq) 15 ml BID@08,20 MT 07/02/17 08:00 (Lotrimin 1% Cream) 1 applic DAILY TOPICAL 07/02/17 09:00 (Roxicodone) 10 mg Q6H PRN PO 07/02/17 04:15 07/04/17 10:47 (Flomax) 0.4 mg HS PO 07/02/17 21:00 07/03/17 20:00 Vancomycin HCl 2000 mg/Sodium Chloride 520 ml @ 250 mls/hr Q24H IV 07/03/17 06:00 07/04/17 05:37 Miscellaneous Information SPECIFIC LAB TO BE DRAWN:VANCOMY... ONCE ONCE .XX 07/05/17 05:45 07/05/17 05:46 Pharmacy Profile Note 0 ml @ 0 mls/hr UNSCH OTHER 07/02/17 10:45 Potassium Chloride 100 ml @ 50 mls/hr Q2H PRN IV 07/02/17 16:30 (K-Lyte Cl Eff) 50 meq UNSCH PRN PO 07/02/17 16:30 Potassium Chloride 100 ml @ 25 mls/hr UNSCH PRN IV 07/02/17 16:30 Potassium Chloride 100 ml @ 50 mls/hr Q2H PRN IV 07/02/17 16:30 Magnesium Sulfate 4 gm/Sodium Chloride 100 ml @ 50 mls/hr UNSCH PRN IV 07/02/17 16:30 (Mag-Ox) 800 mg UNSCH PRN PO 07/02/17 16:30 Magnesium Sulfate 2 gm/Sodium Chloride 100 ml @ 50 mls/hr UNSCH PRN IV 07/02/17 16:30 (K-Phos) 2,000 mg Q4H PRN PO 07/02/17 16:30 Sodium Phosphate 30 mmol/Sodium Chloride 250 ml @ 42 mls/hr UNSCH PRN IV 07/02/17 16:30 07/02/17 18:34 (K-Phos) 2,000 mg UNSCH PRN PO/TUBE 07/02/17 16:30 Potassium Phosphate 30 mmol/ Sodium Chloride 260 ml @ 42 mls/hr UNSCH PRN IV 07/02/17 16:30 Potassium Chloride 100 ml @ 25 mls/hr Q4H PRN IV 07/02/17 16:45 (NovoLIN N INJ) 25 units HS SQ 07/02/17 21:00 07/03/17 20:01 (NovoLIN N INJ) 35 units DAILY SQ 07/03/17 09:00 (D50w (Vial) Inj) 50 ml UNSCH PRN IV PUSH 07/02/17 20:30 (Glucagon Inj) 1 mg UNSCH PRN OTHER 07/02/17 20:30 (NovoLOG SUPPLEMENTAL SCALE) 1 ACHS SLIDING SCALE SQ 07/02/17 21:00 07/04/17 17:00 Diltiazem HCl 125 mg/Sodium Chloride 125 ml @ 5 mls/hr TITRATE PRN IV 07/03/17 13:30 07/04/17 18:30 Ampicillin Sodium/ Sulbactam Sodium 3 gm/Sodium Chloride 100 ml @ 200 mls/hr Q6H IV 07/04/17 12:00 07/04/17 18:18 (Duoneb Neb) 1 ampule Q6HR NEB NEB 07/04/17 16:00 (Albuterol Neb) 2.5 mg Q2HR NEB PRN NEB 07/04/17 11:45 (Cardizem) 30 mg QID PO 07/04/17 13:00 07/04/17 18:18 (Protonix Inj) 40 mg Q12H IV PUSH 07/04/17 14:00 07/04/17 18:03 Assessment and Plan Assessment and Plan 57 year old male with left ankle septic arthritis with OM to fibula, tibia, talus Patient examined and evaluated Discussed case with Dr. Wolf, she states she is unaware foot and ankle surgery/podiatry had ankle privileges and therefore consulted orthopedic surgery after reviewing MRI and seen to degree of joint/fibular involvement Orthopedic surgery consult appreciated Patient to the OR with orthotic tomorrow for attempted limb salvage Previous discussion concerning MRI held with radiologist, Dr. Harris who does not feel limb is salvageable secondary to degree of bone involvement Vascular surgery was consulted for [id number] amputation prior to infectious disease consultation of orthopedics Still feel below the knee amputation would be patient's best option secondary to degree of infection and bone involvement however he is refusing intervention Foot and ankle surgery/podiatry signing off Slime Gonzales DPM Jul 04, 2017 19:38
[2017-07-04] MEDS: TAMSULOSIN HCL 0.4 MG CAP PO SCH (21:23)
[2017-07-05] VITALS (28 sets, daily range): BP systolic 102–184; BP diastolic 49–136; PULSE 87–145; RESP 19–41; TEMP 97.3–98.5; O2SAT 68–98
[2017-07-05] MEDS: PANTOPRAZOLE SODIUM 40 MG VIAL IV PUSH SCH ×2 (02:00→12:51)
[2017-07-05] MEDS: SODIUM CHLOR 0.9% 1000 ML INJ 1,000 ML IV SCH (02:43)
[2017-07-05] MEDS: CHLORHEXIDINE GLUCONATE 2 % 1 PACK (2 CLOTHS) TOP SCH (04:00)
[2017-07-05] MEDS: RESP: ALBUTEROL 2.5 MG/IPRATROPIUM 0.5 MG NEB (SCH) NEB ×4 (04:12→22:00)
[2017-07-05] MEDS ORDERED: PHARMACY ORDERED LAB ONE (05:45)
[2017-07-05] MEDS: AMPICILLIN-SULBACTAM INJ 3 GM in SODIUM CHLORIDE 0.9% INJ 100 ML IV SCH ×3 (06:00→17:20)
[2017-07-05] MEDS: CHLORHEXIDINE 0.12% (ORAL KIT) 15 ML CUP MT SCH ×2 (08:00→20:00)
[2017-07-05] MEDS: INSULIN ASPART SUPPLEMENTAL SCALE SQ SCH ×4 (08:00→21:00)
[2017-07-05] MEDS: DILTIAZEM HCL 30 MG TAB PO SCH ×2 (08:51→12:51)
[2017-07-05] MEDS: DOCUSATE SODIUM 50 MG/SENNA 8.6 MG TAB PO SCH ×2 (08:51→20:59)
[2017-07-05] MEDS: VANCOMYCIN INJ 2,000 MG in SODIUM CHLORID 0.9% 500 ML INJ 500 ML IV SCH (08:52)
[2017-07-05] MEDS: SODIUM CHLORIDE 0.9% FLUSH 10 ML FLUSH IV FLUSH SCH ×2 (08:53→20:59)
[2017-07-05] MEDS: INSULIN HUMAN NPH 1,000 UNITS/10 ML VIAL SQ SCH ×2 (08:53→20:59)
[2017-07-05] MEDS: CLOTRIMAZOLE 1% CREAM 15 GM TOPICAL SCH (09:00)
[2017-07-05 09:18] LABS: BASOPHIL # 0.1 TH/MM3 (0-0.2); BASOPHIL % 0.4 % (0.0-2.0); EOSINOPHIL # 0.6 TH/MM3 (0-0.4); EOSINOPHIL % 5.1 % (0.0-4.0); HEMATOCRIT 27.1 % (39.0-51.0); LYMPH % 12.5 % (9.0-44.0); LYMPHOCYTE # 1.5 TH/MM3 (1.0-4.8); MEAN CELL VOLUME 74.9 FL (80.0-100.0); MEAN CORPUSCULAR HEMOGLOBIN 24.8 PG (27.0-34.0); MEAN CORPUSCULAR HGB CONC 33.2 % (32.0-36.0); MEAN PLATELET VOLUME 7.2 FL (7.0-11.0); MONO % 8.4 % (0.0-8.0); NEUT % 73.6 % (16.0-70.0); PLATELET COUNT 457 TH/MM3 (150-450); RED BLOOD COUNT 3.62 MIL/MM3 (4.50-5.90); RED CELL DISTRIBUTION WIDTH 21.4 % (11.6-17.2); WHITE BLOOD COUNT 12.2 TH/MM3 (4.0-11.0)
[2017-07-05 09:41] LABS: ALBUMIN 1.7 GM/DL (3.4-5.0); ALT (GPT) 18 U/L (12-78); AST (GOT) 17 U/L (15-37); BICARBONATE 18.4 MEQ/L (21.0-32.0); BLOOD UREA NITROGEN 33 MG/DL (7-18); CALCIUM 7.8 MG/DL (8.5-10.1); CHLORIDE 105 MEQ/L (98-107); CHOLESTEROL 110 MG/DL (120-200); CREATININE 1.38 MG/DL (0.60-1.30); GLOMERULAR FILTRATION RATE 53 ML/MIN (>89); GLUCOSE,RANDOM 150 MG/DL (74-106); PHOSPHORUS 2.7 MG/DL (2.5-4.9); SODIUM (NA) 133 MEQ/L (136-145); TRIGLYCERIDES 167 MG/DL (42-150)
[2017-07-05 09:46] LABS: ALKALINE PHOSPHATASE 267 U/L (45-117); CHOLESTEROL/ HDL RATIO 5.44 RATIO; HDL CHOLESTEROL 20.2 MG/DL (40.0-60.0); LDL CHOLESTEROL 56 MG/DL (0-99); TOTAL BILIRUBIN ADULT 0.5 MG/DL (0.2-1.0); TOTAL PROTEIN 6.6 GM/DL (6.4-8.2)
[2017-07-05 09:50] LABS: TROPONIN I 2.71 NG/ML (0.02-0.05)
[2017-07-05 10:43] LABS: BANDS 8 % (0-6); LYMPHOCYTES 7 % (9-44); METAMYELOCYTES 1 % (0-1); MONOCYTES 4 % (0-8); MYELOCYTES 1 % (0-0); NEUTROPHIL # MANUAL DIFF 10.4 TH/MM3 (1.8-7.7); POLYS (SEG NEUTROPHILS) 75 % (16-70)
--- NOTE | 2017-07-05 11:34 | PD.ORT.PN ---
Subjective Subjective Remarks patient reasonably comfortable Objective Vitals Vital Signs Date Time Temp Pulse Resp B/P (MAP) Pulse Ox O2 Delivery O2 Flow Rate FiO2 07/05/17 07:51 96 Nasal Cannula 4.00 07/05/17 06:00 96 07/05/17 04:00 98.5 91 19 121/81 (94) 98 07/05/17 04:00 91 07/05/17 02:00 93 07/05/17 00:00 112 07/05/17 00:00 97.3 112 28 123/62 (82) 94 07/04/17 22:30 92 Nasal Cannula 4.00 07/04/17 22:00 89 07/04/17 20:00 98.1 96 23 117/56 (76) 96 07/04/17 20:00 96 07/04/17 18:30 114 117/78 07/04/17 16:00 98.5 118 24 117/78 (91) 95 07/04/17 12:00 98.1 109 20 113/68 (83) 93 I/O 07/04/17 07/04/17 07/04/17 07/05/17 07/05/17 07/05/17 07:00 15:00 23:00 07:00 15:00 23:00 Intake Total 450 ml 720 ml 2400 ml 360 ml Output Total 500 ml 701 ml 375 ml Balance -50 ml 720 ml 1699 ml -15 ml Intake Oral 350 ml 2000 ml IV Total 100 ml 720 ml 400 ml 360 ml Output Urine Total 500 ml 700 ml 375 ml Stool Total 0 ml 1 ml Result Diagram: 07/05/17 0855 07/05/17 0855 Objective Remarks Left lower extremity Varus deformation of foot and ankle Dressing in place with mild/moderate drainage Moderate swelling ankle/leg as noted yesterday Assessment & Plan Assessment and Plan Left ankle septic joint with probable osteomyelitis of distal fibula and possible distal tibia and talus My first recommendation is transtibial amputation. The patient is refusing this surgery. Therefore, the next recommendation is Irrigation and debridement. He has significant cardiac disease and is not cleared at this time. I will discuss with one of my partners about I & D for either Thursday or Thursday. Continue dressing changes. Discussed with Administrative Court Justice. All of the patient's questions were answered. Ry Loev MD Jul 05, 2017 11:34
--- NOTE | 2017-07-05 14:01 | PD.CAR.PN ---
CVT Progress Note Subjective/Hospital Course: Consult received Full dictation to follow 07/04/17 Today on my arrival to ICU patient had just left for the stress test site could not examine him and talked to the patient Will talk to the patient tomorrow and make vascular recommendations Thanks J 07/05/17 I finally had a chance to have a long talk with the patient and examine him carefully Full consult has been dictated but in brief the following other recommendations Patient is very sick individual with ejection fraction of 30% and a fixed defect consistent with ischemic area of the ventricle so surgery should be minimized as far as number of procedures is concerned I fully agree with Dr. Love, the patient should have left below-knee amputation as one procedure and this should heal nicely Doing repeated procedures under general or any other anesthesia expose this patient to repeated risks of cardiac complications As far as the right foot is concerned he has a full equino-varus deformity. According to patient some cafeteria table attendant on outside wants to do some surgery and straightening of this ankle. The whole thing sounds quite insane and should clearly not be attempted in this gentleman because is going end up with a festering wound and lose the other leg as well, probably faster than the first one. Once the patient agrees to have below-knee amputation I be happy to go ahead with it Objective: Vital Signs Date Time Temp Pulse Resp B/P (MAP) Pulse Ox O2 Delivery O2 Flow Rate FiO2 07/05/17 07:51 96 Nasal Cannula 4.00 07/05/17 06:00 96 07/05/17 04:00 98.5 91 19 121/81 (94) 98 07/05/17 04:00 91 07/05/17 02:00 93 07/05/17 00:00 112 07/05/17 00:00 97.3 112 28 123/62 (82) 94 07/04/17 22:30 92 Nasal Cannula 4.00 07/04/17 22:00 89 07/04/17 20:00 98.1 96 23 117/56 (76) 96 07/04/17 20:00 96 07/04/17 18:30 114 117/78 07/04/17 16:00 98.5 118 24 117/78 (91) 95 Labs: Laboratory Tests Test 07/05/17 08:55 White Blood Count 12.2 TH/MM3 (4.0-11.0) Red Blood Count 3.62 MIL/MM3 (4.50-5.90) Hemoglobin 9.0 GM/DL (13.0-17.0) Hematocrit 27.1 % (39.0-51.0) Mean Corpuscular Volume 74.9 FL (80.0-100.0) Mean Corpuscular Hemoglobin 24.8 PG (27.0-34.0) Mean Corpuscular Hemoglobin Concent 33.2 % (32.0-36.0) Red Cell Distribution Width 21.4 % (11.6-17.2) Platelet Count 457 TH/MM3 (150-450) Mean Platelet Volume 7.2 FL (7.0-11.0) Neutrophils (%) (Auto) 73.6 % (16.0-70.0) Lymphocytes (%) (Auto) 12.5 % (9.0-44.0) Monocytes (%) (Auto) 8.4 % (0.0-8.0) Eosinophils (%) (Auto) 5.1 % (0.0-4.0) Basophils (%) (Auto) 0.4 % (0.0-2.0) Neutrophils # (Auto) 9.0 TH/MM3 (1.8-7.7) Lymphocytes # (Auto) 1.5 TH/MM3 (1.0-4.8) Monocytes # (Auto) 1.0 TH/MM3 (0-0.9) Eosinophils # (Auto) 0.6 TH/MM3 (0-0.4) Basophils # (Auto) 0.1 TH/MM3 (0-0.2) CBC Comment AUTO DIFF Differential Total Cells Counted 100 Neutrophils % (Manual) 75 % (16-70) Band Neutrophils % 8 % (0-6) Lymphocytes % 7 % (9-44) Monocytes % 4 % (0-8) Eosinophils % 4 % (0-4) Neutrophils # (Manual) 10.4 TH/MM3 (1.8-7.7) Metamyelocytes 1 % (0-1) Myelocytes 1 % (0-0) Differential Comment FINAL DIFF MANUAL Platelet Estimate HIGH (NORMAL) Platelet Morphology Comment NORMAL (NORMAL) Blood Urea Nitrogen 33 MG/DL (7-18) Creatinine 1.38 MG/DL (0.60-1.30) Random Glucose 150 MG/DL (74-106) Total Protein 6.6 GM/DL (6.4-8.2) Albumin 1.7 GM/DL (3.4-5.0) Calcium Level 7.8 MG/DL (8.5-10.1) Phosphorus Level 2.7 MG/DL (2.5-4.9) Magnesium Level 2.0 MG/DL (1.5-2.5) Alkaline Phosphatase 267 U/L (45-117) Aspartate Amino Transf (AST/SGOT) 17 U/L (15-37) Alanine Aminotransferase (ALT/SGPT) 18 U/L (12-78) Total Bilirubin 0.5 MG/DL (0.2-1.0) Sodium Level 133 MEQ/L (136-145) Potassium Level 3.8 MEQ/L (3.5-5.1) Chloride Level 105 MEQ/L (98-107) Carbon Dioxide Level 18.4 MEQ/L (21.0-32.0) Anion Gap 10 MEQ/L (5-15) Estimat Glomerular Filtration Rate 53 ML/MIN (>89) Lactic Acid Level 1.2 mmol/L (0.4-2.0) Troponin I 2.71 NG/ML (0.02-0.05) Triglycerides Level 167 MG/DL (42-150) Cholesterol Level 110 MG/DL (120-200) LDL Cholesterol 56 MG/DL (0-99) HDL Cholesterol 20.2 MG/DL (40.0-60.0) Cholesterol/HDL Ratio 5.44 RATIO Thyroid Stimulating Hormone 3rd Gen 3.360 uIU/ML (0.358-3.740) Vancomycin Level Trough 16.4 MCG/ML (5.0-10.0) Result Diagram: 07/05/1785407/05/17854 (1) Angina pectoris (2) Elevated troponin (3) Uncontrolled type 2 DM with hyperosmolar nonketotic hyperglycemia Larisa Hernández MD Jul 05, 2017 14:01
[2017-07-05] MEDS ORDERED: HYDROmorphone HCL PF 1 MG/ML VIAL IV PUSH ONE (14:15)
[2017-07-05] MEDS ORDERED: FUROSEMIDE 40 MG/4 ML VIAL IV PUSH ONE (14:15)
[2017-07-05] MEDS ORDERED: METOPROLOL TARTRATE 5 MG/5 ML VIAL IV PUSH ONE (14:15)
--- NOTE | 2017-07-05 14:19 | MB ---
[facility] DATE OF CONSULTATION: 07/04/2017. REASON FOR CONSULTATION: Peripheral vascular disease, diabetes mellitus, osteomyelitis of the left foot. HISTORY OF PRESENT ILLNESS: This is a 57-year-old male who is a long-term diabetic who presents to the hospital with wounds on both legs. Apparently on the right foot, he has had a wound for years but it had sort of healed. The left foot lateral aspect is gangrenous with a festering wound and osteomyelitis involving the fibula on the left. The question now arises as to where to go with this. PAST MEDICAL HISTORY: His past medical history is quite complex: 1. 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 2. Poorly controlled diabetes mellitus for thirty years. 3. Charcot's feet. 4. Chronic osteomyelitis on the right and now on the left. 5. Hypertension. 6. General noncompliance with care. MEDICATIONS: 1. The patient is on insulin. 2. Oxycodone. 3. Flomax. 4. Cialis. PAST SURGICAL HISTORY: Bilateral fifth toe amputations. PHYSICAL EXAMINATION: GENERAL: The physical examination reveals a 57-year-old male appearing older than his actual age. HEAD, EYES, EARS, NOSE, THROAT: Normocephalic. No trauma to the head. Pupils equal and reactive. Extraocular muscles intact. NECK: Bilateral carotid pulses and bilateral faint carotid bruits. CHEST: Bilateral breath sounds. HEART: Regular rhythm at this point. The patient seems to be in sinus rhythm, although he is on a Cardizem drip from what I can see. ABDOMEN: Soft. Active bowel sounds. EXTREMITIES: The patient has palpable femoral pulses, bilateral Dopplerable popliteal pulses, bilateral dorsalis pedis pulses. The posterior tibial pulse is absent on both sides. The right foot is in a full equinovarus position consistent with a Charcot's joint. There is a wound on the lateral aspect of the foot that has healed. This gentleman has been walking on the lateral aspect of his foot now for years, although he states he runs about three miles a day until about a few years ago, which sounds pretty unbelievable. On the left side, the patient has gangrenous infected changes on the lateral aspect of the foot, which extend up to the ankle and studies are consistent with osteomyelitis of the fibula and probably the whole joint. RECOMMENDATIONS: I reviewed laboratory and diagnostic procedures. 1. This gentleman has unrecoverable degenerative changes of both feet. In addition, he has suffered a myocardial infarction and his current stress study reveals a fixed area of the ventricle and an ejection fraction of 30%. This puts the patient at a high risk for surgery. In the best of both worlds, he should have a left below-knee amputation as one procedure, possibly under nerve block and some sedation. Amputations of course are associated with a fairly high mortality and morbidity considering the majority of these patients are chronic vasculopaths and are poor candidates for surgery in the first place. On the other hand, the patient at this point would like more of a debridement so I have no problem that if we can buy some time doing that. 2. On the right side, the patient has, as stated, a full equinovarus and Charcot's joint, and this is not a salvageable situation either but there is no emergency to it. Some [employer] driver on the outside allegedly wants to do surgery and straightening of the joint, which is, if really true, wishful thinking in this gentleman because this is never going to heal and he will end up losing that foot even faster than the other side if this goes through. Therefore, my recommendation is that debridement is not an unreasonable option, but it should be made clear that the patient is going to lose his left leg sooner or later, and that he is a fairly high-risk candidate for surgery. CRITICAL CARE TIME: Forty (40) minutes. Larisa SAVAGE/JULISSA /1:48 PM /1:59 PM NEYMAR
--- NOTE | 2017-07-05 14:22 | HHI.CCPN ---
Subjective Remarks/Hospital Course 57-year-old male presents complaining of fever, coughing congestion, nausea vomiting, abdominal pain. Patient states that the symptoms started 4 days ago. Patient states that he has poor appetite. Patient has history of diabetes and blood sugars been running high at home. Patient states the abdominal pain is cramping pain intermittent pain associate with vomiting. Patient states that abdominal pain localized to lower abdomen. Patient denies any pain radiation. Patient denies any dysuria or frequency. He admits his cough is intermittent and mild productive. Patient denies any chest pain. Patient denies any shortness of breath. 07/03 No events overbright. Renal function is improving with Cr: 1.47 today. Off insulin drip. Afebrile. 07/04: Currently afebrile and hemodynamically stable. Remains on diltiazem drip at 15 mg an hour. Plan for two-part nuclear medicine stress test today and tomorrow. Requesting diet. Subjective 07/05: Afebrile. Currently he has chest "pressure". Does not radiate to the back of her up the neck/down left shoulder worse with deep inspiration. Not reproducible with palpation. Patient similar symptoms after eating yesterday for approximately 2 hours. Rates it 8 out of 10. Receiving diuretics, beta blockers and 1 dose of hydromorphone. Along with one dose of Maalox. Patient insisting on going to the commode first before we will provide the patient with these medications. Objective Vital Signs Date Time Temp Pulse Resp B/P (MAP) Pulse Ox O2 Delivery O2 Flow Rate FiO2 07/05/17 07:51 96 Nasal Cannula 4.00 07/05/17 06:00 96 07/05/17 04:00 98.5 19 121/81 (94) Intake and Output 07/05/17 07/05/17 07/06/17 08:00 16:00 00:00 Intake Total 100 ml Output Total 375 ml Balance -275 ml Result Diagram: 07/05/17 0807/05/17 0855 Other Results Microbiology Date/Time Source Procedure Growth Status 07/02/17 16:50 Blood Peripheral Aerobic Blood Culture - Final Staphylococcus Aureus Resulted 07/02/17 16:50 Blood Peripheral Anaerobic Blood Culture - Preliminary NO GROWTH IN 3 DAYS Resulted 07/02/17 01:50 Sputum Endotracheal Gram Stain - Final Complete 07/02/17 01:50 Sputum Endotracheal Sputum Culture - Final HEAVY GROWTH NORMAL RESPIRATORY DEE Complete 07/02/17 02:35 Urine Catheterized Urine Urine Culture - Final 50-100,000 CFU/ML MIXED DEE... Complete 07/02/17 04:50 Wound Foot Gram Stain - Final Complete 07/02/17 04:50 Wound Culture - Final Acinetobacter Baumannii/Haemol Staphylococcus Aureus Group B Beta Strep Complete Imaging Last Impressions Myocardial Perfusion Scan Nuc Med 07/04/17 0800 Signed Impressions: Service Date/Time: Tuesday, July 04, 2017 14:17 - CONCLUSION: 1. Large fixed apical defect consistent with an area of infarction. There is no definite reversibility to suggest ischemia. 2. Markedly decreased calculated ejection fraction of 24%% with akinesis in the apex and global hypokinesis. RISK CATEGORY: High (>3%% Annual Mortality Rate) Noe Skinner MD Foot MRI 07/03/172013 Signed Impressions: Service Date/Time: Monday, July 03, 2017 08:58 - CONCLUSION: Extensive inflammatory changes beginning above the ankle extending through the hindfoot and forefoot as described above. Hugh Harris MD FACR Ankle MRI 07/03/17 0000 Signed Impressions: Service Date/Time: Monday, July 03, 2017 08:58 - CONCLUSION: The bulk of the inflammatory changes appear to be centered around the lateral malleolus and the joint. Septic arthritis is suspected. Osteomalacia of the distal fibula, distal tibia and talus are suspected. Septic joint is suspected. Wound communicates with the fibula with large fluid collection the flow tip of fibula. CT angiography would be of benefit to assess vascular in flow. Hugh Harris MD FACR Foot X-Ray 07/02/17 0000 Signed Impressions: Service Date/Time: June 19:12 - CONCLUSION: Possible lateral erosion of the fourth metatarsal head. Patient is scheduled for MRI. No other acute bony abnormalities are demonstrated. Patient is status post amputation of the fifth toe and resection of the fifth metatarsal. Drake Jarvis MD Chest X-Ray 07/01/172121 Signed Impressions: Service Date/Time: Saturday, July 01, 2017 21:34 - CONCLUSION: Normal examination. Jacob Pike MD Objective Remarks GENERAL: 49-year-old male, currently on nasal cannula and diltiazem drip in no acute distress SKIN: Focused skin assessment warm/dry. Left lower extremity is currently wrapped in Kerlix with some serosanguineous drainage HEAD: Normocephalic. EYES: No scleral icterus. No injection or drainage. Throat: Nonerythematous. NECK: Supple, trachea midline. No JVD or lymphadenopathy. No meningismus CARDIOVASCULAR: Tachycardia, IR. S1, S2 no S4. Without murmur. RESPIRATORY: Breath sounds equal bilaterally. No accessory muscle use. GASTROINTESTINAL: Abdomen soft, non-tender, nondistended. MUSCULOSKELETAL: No cyanosis, bilateral chronic venous status changes, chronic stasis ulcerations to the left heel Neuro: Cranial nerves II through XII grossly intact. Strength appears equal symmetric. A/P Assessment and Plan Neuro/Psych: Anxiety disorder NOS Chronic narcotic use Acetaminophen 650 mg by mouth every 6 hours when necessary fever/pain 1-5 Morphine sulfate 2 mg IV distress. Pain 6 out of 10 Oxycodone 10 mg by mouth every 6 hours. Pain 1-10 EEG: No seizures One-time dose of hydromorphone now 1 mg Pulm: Acute respiratory insufficiency Oxygen PRN keep sat >92%. Currently in 4 L nasal cannula Incentive spirometry while awake Albuterol/ipratropium aerosols every 6 hours with albuterol aerosols every 2 hours. Dyspnea CV: Hypertension Non-STEMI Elevated troponin Monitor HR and BP keep MAP>65mmHg 2D echo - LVSF is moderately reduced EF 40-45%. with anteroseptal hypokinesis Mild thickening of the mitral valve leaflets. Mild mitral valve regurgitation. There is trace tricuspid valve regurgitation. There is estimated mild pulmonary hypertension present (range 40-50 mmHg). The inferior vena cava is dilated. There is less than 50% respiratory change in dimension of the inferior vena cava (abnormal). Cards is following- Dr. Tucker. Nuclear medicine stress test revealed fixed apical defect. No ischemic reversibility change. EF 24%. Global hypokinesis with focal akinesis at the apex. High risk factor Discussed with Dr. Melendez covering this weekend for Dr. Tucker. Optimize medically. Will reassess in a.m. 07/06 Currently receiving IV beta pollo, diuretic in pain medicine along with GI remedy. EKG revealed atrial fibrillation rate around 110 with no ischemic changes Currently receiving diltiazem 60 mg every 6 hours/diltiazem drip and metoprolol 5 mill grams IV every 6 hours. FEN/Renal/: Acute kidney injury in the setting chronic kidney disease stage IIIa Hyponatremia Hypophosphatemia Erectile dysfunction BPH Discontinue IV fluids Replace electrolytes as clinically indicated Monitor urine output Accurate I's and O's Avoid nephrotoxic medications Hold Tadalafil 10 mg daily Tamsulosin 0.4 mg by mouth daily Be continued GI: Hypoalbuminemia Anemia arrival requiring 3 units PRBCs Continue ADA diet Pantoprazole 40 mill grams IV twice a day for GI prophylaxis We'll consult GI for possible upper endoscopy. Once cardiac stabilized Docusate sodium/senna 1 tablet twice a day for bowel regimen ID: Staph aureus/group B beta strep bacteremia Septic arthritis left lower extremity Diabetic foot ulcer Currently on ampicillin/sulbactam and vancomycin per infectious disease/Dr. Wolf Abx per ID, monitor for signs of infections ( Fever, WBC). Nasal washing negative for Influenza MRI left lower extremity revealed left septic joint arthritis, degenerative changes of fibula, distal tibia and talus. Abscess/joint effusion and bone marrow edema noted. ID, Podiatry is following Vascular surgeon following as well BC 07/01: Group B beta strep staph aureus 07/02 - wound culture - Acinetobacter, staph aureus, group A beta strep Heme: Microcytic anemia Leukocytosis Monitor CBC daily. Follow trends Endo: Diabetes mellitus Humulin R u-500 35 units in the morning 25 units at night. Novulin N -100 sliding-scale insulin at home SSI High Novulog ac/HS at this facility 62 units sliding scale insulin past 24 hours DVT GI prophylaxis - SCD, will start heparin drip. Serial hemoglobins -Pantoprazole Patient has been non compliant and non cooperative with nursing staff and consultants. Level 3 Randall Torres MD Jul 05, 2017 14:21
[2017-07-05] MEDS ORDERED: NITROGLYCERIN 0.3 MG SL 100 TABS/BTL SL PRN (14:30)
[2017-07-05] MEDS ORDERED: ALUMINUM/MAGNESIUM/SIMETH 30 ML CUP PO ONE (14:30)
[2017-07-05] MEDS: DILTIAZEM INJ 125 MG in SODIUM CHLORIDE 0.9% INJ 100 ML IV PRN (14:58)
[2017-07-05 15:39] LABS: HEMATOCRIT 29.4 % (39.0-51.0); HEMOGLOBIN 9.2 GM/DL (13.0-17.0); MEAN CELL VOLUME 75.9 FL (80.0-100.0); MEAN CORPUSCULAR HEMOGLOBIN 23.9 PG (27.0-34.0); MEAN CORPUSCULAR HGB CONC 31.5 % (32.0-36.0); MEAN PLATELET VOLUME 7.4 FL (7.0-11.0); PLATELET COUNT 518 TH/MM3 (150-450); RED BLOOD COUNT 3.87 MIL/MM3 (4.50-5.90); RED CELL DISTRIBUTION WIDTH 21.9 % (11.6-17.2)
[2017-07-05] MEDS: METOPROLOL TARTRATE 5 MG/5 ML VIAL IV PUSH SCH ×2 (16:00→20:58)
[2017-07-05] MEDS: HEPARIN-D5W 25,000 U/250 ML 250 ML IV PRN (16:02)
--- NOTE | 2017-07-05 16:14 | RADRPT ---
EXAM DATE/TIME: 07/05/2017 15:40 [facility] COMPARISON: CHEST SINGLE AP, July 01, 2017, 21:34. INDICATIONS : Short of breath MEDICAL HISTORY : Congestive heart failure. Hypertension. Diabetes mellitus type 2. Prior percutaneous angioplast y and stent placement SURGICAL HISTORY : Appendectomy. Bilateral feet. ENCOUNTER: Subsequent ACUITY: 1 week PAIN SCORE: 0/10 LOCATION: Bilateral chest FINDINGS: A single view of the chest demonstrates the lungs to be symmetrically aerated without evidence of mas s, infiltrate or effusion. The cardiomediastinal contours are unremarkable. Osseous structures are intact. There are multiple overlying electrocardiogram leads. CONCLUSION: No acute disease. Noe Skinner MD on July 05, 2017 at 16:11 Board Certified Radiologist. This report was verified electronically.
[2017-07-05 16:19] LABS: INTERNATIONAL NORMALIZED RATIO 1.2 RATIO; PROTHROMBIN TIME - PATIENT 11.7 SEC (9.8-11.6)
[2017-07-05] MEDS: DILTIAZEM HCL 60 MG TAB PO SCH ×2 (17:22→20:58)
[2017-07-05] MEDS ORDERED: DILTIAZEM INJ 125 MG in SODIUM CHLORIDE 0.9% INJ 100 ML IV PRN (19:45)
[2017-07-05] MEDS: TAMSULOSIN HCL 0.4 MG CAP PO SCH (20:58)
[2017-07-05] MEDS ORDERED: LACTATED RINGER'S 1000 ML IV PRN (22:45)
[2017-07-05] MEDS ORDERED: POVIDONE IODINE 5% (ANTISEPSIS KIT) 4 APPLICATIONS EACH NARE PRN (22:45)
[2017-07-05] MEDS ORDERED: SODIUM CHLORID 0.9% 500 ML IV PRN (22:45)
[2017-07-05] MEDS ORDERED: CHLORHEXIDINE GLUCONATE 2 % 1 PACK (2 CLOTHS) TOPICAL PRN (22:45)
[2017-07-06] VITALS (14 sets, daily range): BP systolic 98–128; BP diastolic 54–80; PULSE 90–107; RESP 16–23; TEMP 97.8–98.7; O2SAT 89–98
[2017-07-06] MEDS: PANTOPRAZOLE SODIUM 40 MG VIAL IV PUSH SCH ×2 (02:00→14:07)
[2017-07-06] MEDS: RESP: ALBUTEROL 2.5 MG/IPRATROPIUM 0.5 MG NEB (SCH) NEB ×4 (03:16→20:24)
[2017-07-06] MEDS: CHLORHEXIDINE GLUCONATE 2 % 1 PACK (2 CLOTHS) TOP SCH (04:00)
[2017-07-06] MEDS: METOPROLOL TARTRATE 5 MG/5 ML VIAL IV PUSH SCH ×3 (04:00→10:00)
[2017-07-06] MEDS: AMPICILLIN-SULBACTAM INJ 3 GM in SODIUM CHLORIDE 0.9% INJ 100 ML IV SCH ×6 (05:15→23:43)
[2017-07-06] MEDS: ONDANSETRON HCL 4 MG/2 ML VIAL IV PUSH PRN ×2 (05:15→19:37)
[2017-07-06] MEDS ORDERED: ALUMINUM/MAGNESIUM/SIMETH 30 ML CUP PO ONE (06:00)
[2017-07-06] MEDS: VANCOMYCIN INJ 1,750 MG in SODIUM CHLORID 0.9% 500 ML INJ 500 ML IV SCH (06:09)
[2017-07-06 07:13] LABS: AUTOMATED NEUTROPHIL # 7.1 TH/MM3 (1.8-7.7); BASOPHIL # 0.1 TH/MM3 (0-0.2); BASOPHIL % 0.6 % (0.0-2.0); EOSINOPHIL # 0.4 TH/MM3 (0-0.4); EOSINOPHIL % 4.2 % (0.0-4.0); HEMATOCRIT 24.4 % (39.0-51.0); HEMOGLOBIN 8.3 GM/DL (13.0-17.0); LYMPHOCYTE # 1.8 TH/MM3 (1.0-4.8); MEAN CELL VOLUME 74.4 FL (80.0-100.0); MEAN CORPUSCULAR HEMOGLOBIN 25.2 PG (27.0-34.0); MEAN CORPUSCULAR HGB CONC 33.9 % (32.0-36.0); MEAN PLATELET VOLUME 7.5 FL (7.0-11.0); MONO % 9.2 % (0.0-8.0); PLATELET COUNT 511 TH/MM3 (150-450); RED BLOOD COUNT 3.28 MIL/MM3 (4.50-5.90); WHITE BLOOD COUNT 10.3 TH/MM3 (4.0-11.0)
[2017-07-06 07:20] LABS: ALBUMIN 1.6 GM/DL (3.4-5.0); AST (GOT) 17 U/L (15-37); BICARBONATE 20.9 MEQ/L (21.0-32.0); BLOOD UREA NITROGEN 30 MG/DL (7-18); CALCIUM 8.2 MG/DL (8.5-10.1); CHLORIDE 101 MEQ/L (98-107); CREATININE 1.33 MG/DL (0.60-1.30); GLOMERULAR FILTRATION RATE 55 ML/MIN (>89); GLUCOSE,RANDOM 80 MG/DL (74-106); SODIUM (NA) 133 MEQ/L (136-145)
[2017-07-06 07:26] LABS: ALKALINE PHOSPHATASE 307 U/L (45-117); ALT (GPT) 19 U/L (12-78); PHOSPHORUS 2.8 MG/DL (2.5-4.9); TOTAL BILIRUBIN ADULT 0.6 MG/DL (0.2-1.0); TOTAL PROTEIN 6.5 GM/DL (6.4-8.2)
[2017-07-06 07:38] LABS: TROPONIN I 2.72 NG/ML (0.02-0.05)
[2017-07-06] MEDS: INSULIN ASPART SUPPLEMENTAL SCALE SQ SCH ×4 (08:00→20:06)
[2017-07-06] MEDS: CHLORHEXIDINE 0.12% (ORAL KIT) 15 ML CUP MT SCH ×2 (08:00→19:39)
--- NOTE | 2017-07-06 08:57 | PD.ORT.PN ---
Subjective Subjective Remarks Diabetic with chronic history of foot ulcers of right foot and continued ulcerations of left foot and ankle. He has been followed outpatient by wound care. Objective Vitals Vital Signs Date Time Temp Pulse Resp B/P (MAP) Pulse Ox O2 Delivery O2 Flow Rate FiO2 07/06/17 07:50 98 Nasal Cannula 3.00 07/06/17 06:00 90 07/06/17 04:00 101 07/06/17 04:00 97.8 101 22 126/74 (91) 98 07/06/17 02:00 93 07/06/17 00:00 101 07/06/17 00:00 101 23 113/76 (88) 96 07/05/17 23:26 96 Nasal Cannula 3.00 07/05/17 22:00 87 07/05/17 20:46 96 Nasal Cannula 3.00 07/05/17 20:00 97.8 98 25 110/73 (85) 94 07/05/17 20:00 98 07/05/17 16:30 94 23 108/49 (68) 95 07/05/17 16:00 97.8 88 25 102/61 (75) 97 07/05/17 15:30 91 22 105/61 (76) 90 07/05/17 15:01 120 25 133/68 (89) 74 07/05/17 15:00 126 24 68 07/05/17 14:58 128 184/130 07/05/17 14:31 145 41 184/136 (152) 76 07/05/17 14:00 114 29 145/82 (103) 95 07/05/17 13:30 113 21 131/70 (90) 97 07/05/17 13:00 122 22 127/80 (96) 96 07/05/17 12:30 101 21 112/73 (86) 96 07/05/17 12:00 97.9 115 24 110/74 (86) 95 07/05/17 11:30 103 20 117/65 (82) 98 07/05/17 11:00 123 27 133/70 (91) 94 07/05/17 10:30 116 27 128/71 (90) 89 07/05/17 10:00 121 28 136/74 (94) 78 07/05/17 09:30 126 24 116/70 (85) 98 07/05/17 09:00 124 27 125/62 (83) 95 I/O 07/05/17 07/05/17 07/05/17 07/06/17 07/06/17 07/06/17 07:00 15:00 23:00 07:00 15:00 23:00 Intake Total 360 ml 720 ml 1800 ml Output Total 375 ml 1200 ml 775 ml Balance -15 ml 720 ml 600 ml -775 ml Intake Oral 1200 ml IV Total 360 ml 720 ml 600 ml Output Urine Total 375 ml 1200 ml 775 ml Stool Total 0 ml Result Diagram: 07/06/17 0630 07/06/17 0630 Other Results Laboratory Tests Test 07/05/17 15:23 Prothromb Time International Ratio 1.2 RATIO Prothrombin Time 11.7 SEC (9.8-11.6) Objective Remarks Left lower extremity Varus deformation of foot and ankle Dressing in place with mild/moderate drainage - dressing removed revealing ulceration over medial malleolus is purulent secondary wound over lateral foot Moderate swelling ankle/leg as noted yesterday Assessment & Plan Assessment and Plan Left ankle septic joint with 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 Love has requested Dr. Linton to help with management of this case. Patient refuses discussion of possible below-knee amputation of left lower extremity. He has been seeing wound care prior to this admission. He understands that chronic nature of this wound and medical history of being diabetic that this wound is unlikely to heal. He states that he will only agree to irrigation debridement of the ankle. At this point, after discussion with Dr. Linton, we will consult wound care and Dr. Bland for irrigation and debridements. If the wound worsens and discussion of surgical amputation is on the table, reconsult Dr. Linton for management of the left lower extremity. They will continue daily dressing changes and will continue medical care to help with stabilization. Noe Villalta Jr. Jul 06, 2017 08:57
[2017-07-06] MEDS: DOCUSATE SODIUM 50 MG/SENNA 8.6 MG TAB PO SCH ×2 (09:00→19:36)
[2017-07-06] MEDS: CLOTRIMAZOLE 1% CREAM 15 GM TOPICAL SCH (09:00)
[2017-07-06] MEDS: SODIUM CHLORIDE 0.9% FLUSH 10 ML FLUSH IV FLUSH SCH ×2 (09:00→19:36)
[2017-07-06] MEDS: INSULIN HUMAN NPH 1,000 UNITS/10 ML VIAL SQ SCH ×3 (09:00→21:00)
[2017-07-06] MEDS: DILTIAZEM HCL 60 MG TAB PO SCH ×4 (09:33→19:37)
--- NOTE | 2017-07-06 09:45 | PD.CAR.PN ---
CVT Progress Note Subjective/Hospital Course: Consult received Full dictation to follow 07/04/17 Today on my arrival to ICU patient had just left for the stress test site could not examine him and talked to the patient Will talk to the patient tomorrow and make vascular recommendations Thanks J 07/05/17 I finally had a chance to have a long talk with the patient and examine him carefully Full consult has been dictated but in brief the following other recommendations Patient is very sick individual with ejection fraction of 30% and a fixed defect consistent with ischemic area of the ventricle so surgery should be minimized as far as number of procedures is concerned I fully agree with Dr. Love, the patient should have left below-knee amputation as one procedure and this should heal nicely Doing repeated procedures under general or any other anesthesia expose this patient to repeated risks of cardiac complications As far as the right foot is concerned he has a full equino-varus deformity. According to patient some vegetable farm manager on outside wants to do some surgery and straightening of this ankle. The whole thing sounds quite insane and should clearly not be attempted in this gentleman because is going end up with a festering wound and lose the other leg as well, probably faster than the first one. Once the patient agrees to have below-knee amputation I be happy to go ahead with it 07/06/17 As above noted patient is in complete denial about condition of both feet Will go for debridement with orthopedics Eventually patient will need amputation of the left leg. His cardiac function obviously is precarious and makes him a high risk candidate for surgery but without it, eventually he'll developed sepsis and As far as the right foot is concerned, correcting equinovarus with surgery in this diabetic patient is wishful thinking. Patient will end up with a massive nonhealing wound and gangrene Objective: Vital Signs Date Time Temp Pulse Resp B/P (MAP) Pulse Ox O2 Delivery O2 Flow Rate FiO2 07/06/17 07:50 98 Nasal Cannula 3.00 07/06/17 06:00 90 07/06/17 04:00 101 07/06/17 04:00 97.8 101 22 126/74 (91) 98 07/06/17 02:00 93 07/06/17 00:00 101 07/06/17 00:00 101 23 113/76 (88) 96 07/05/17 23:26 96 Nasal Cannula 3.00 07/05/17 22:00 87 07/05/17 20:46 96 Nasal Cannula 3.00 07/05/17 20:00 97.8 98 25 110/73 (85) 94 07/05/17 20:00 98 07/05/17 16:30 94 23 108/49 (68) 95 07/05/17 16:00 97.8 88 25 102/61 (75) 97 07/05/17 15:30 91 22 105/61 (76) 90 07/05/17 15:01 120 25 133/68 (89) 74 07/05/17 15:00 126 24 68 07/05/17 14:58 128 184/130 07/05/17 14:31 145 41 184/136 (152) 76 07/05/17 14:00 114 29 145/82 (103) 95 07/05/17 13:30 113 21 131/70 (90) 97 07/05/17 13:00 122 22 127/80 (96) 96 07/05/17 12:30 101 21 112/73 (86) 96 07/05/17 12:00 97.9 115 24 110/74 (86) 95 07/05/17 11:30 103 20 117/65 (82) 98 07/05/17 11:00 123 27 133/70 (91) 94 07/05/17 10:30 116 27 128/71 (90) 89 07/05/17 10:00 121 28 136/74 (94) 78 Labs: Laboratory Tests Test 07/06/17 06:30 White Blood Count 10.3 TH/MM3 (4.0-11.0) Red Blood Count 3.28 MIL/MM3 (4.50-5.90) Hemoglobin 8.3 GM/DL (13.0-17.0) Hematocrit 24.4 % (39.0-51.0) Mean Corpuscular Volume 74.4 FL (80.0-100.0) Mean Corpuscular Hemoglobin 25.2 PG (27.0-34.0) Mean Corpuscular Hemoglobin Concent 33.9 % (32.0-36.0) Red Cell Distribution Width 22.0 % (11.6-17.2) Platelet Count 511 TH/MM3 (150-450) Mean Platelet Volume 7.5 FL (7.0-11.0) Neutrophils (%) (Auto) 69.0 % (16.0-70.0) Lymphocytes (%) (Auto) 17.0 % (9.0-44.0) Monocytes (%) (Auto) 9.2 % (0.0-8.0) Eosinophils (%) (Auto) 4.2 % (0.0-4.0) Basophils (%) (Auto) 0.6 % (0.0-2.0) Neutrophils # (Auto) 7.1 TH/MM3 (1.8-7.7) Lymphocytes # (Auto) 1.8 TH/MM3 (1.0-4.8) Monocytes # (Auto) 1.0 TH/MM3 (0-0.9) Eosinophils # (Auto) 0.4 TH/MM3 (0-0.4) Basophils # (Auto) 0.1 TH/MM3 (0-0.2) CBC Comment AUTO DIFF Differential Comment AUTO DIFF CONFIRMED Activated Partial Thromboplast Time 33.2 SEC (24.3-30.1) Blood Urea Nitrogen 30 MG/DL (7-18) Creatinine 1.33 MG/DL (0.60-1.30) Random Glucose 80 MG/DL (74-106) Total Protein 6.5 GM/DL (6.4-8.2) Albumin 1.6 GM/DL (3.4-5.0) Calcium Level 8.2 MG/DL (8.5-10.1) Phosphorus Level 2.8 MG/DL (2.5-4.9) Magnesium Level 2.0 MG/DL (1.5-2.5) Alkaline Phosphatase 307 U/L (45-117) Aspartate Amino Transf (AST/SGOT) 17 U/L (15-37) Alanine Aminotransferase (ALT/SGPT) 19 U/L (12-78) Total Bilirubin 0.6 MG/DL (0.2-1.0) Sodium Level 133 MEQ/L (136-145) Potassium Level 3.6 MEQ/L (3.5-5.1) Chloride Level 101 MEQ/L (98-107) Carbon Dioxide Level 20.9 MEQ/L (21.0-32.0) Anion Gap 11 MEQ/L (5-15) Estimat Glomerular Filtration Rate 55 ML/MIN (>89) Troponin I 2.72 NG/ML (0.02-0.05) Result Diagram: 07/06/1762907/06/17629 (1) Angina pectoris (2) Elevated troponin (3) Uncontrolled type 2 DM with hyperosmolar nonketotic hyperglycemia Larisa Hernández MD Jul 06, 2017 09:45
--- NOTE | 2017-07-06 15:17 | HHI.CCPN ---
Subjective Remarks/Hospital Course 57-year-old male presents complaining of fever, coughing congestion, nausea vomiting, abdominal pain. Patient states that the symptoms started 4 days ago. Patient states that he has poor appetite. Patient has history of diabetes and blood sugars been running high at home. Patient states the abdominal pain is cramping pain intermittent pain associate with vomiting. Patient states that abdominal pain localized to lower abdomen. Patient denies any pain radiation. Patient denies any dysuria or frequency. He admits his cough is intermittent and mild productive. Patient denies any chest pain. Patient denies any shortness of breath. 07/03 No events overbright. Renal function is improving with Cr: 1.47 today. Off insulin drip. Afebrile. 07/04: Currently afebrile and hemodynamically stable. Remains on diltiazem drip at 15 mg an hour. Plan for two-part nuclear medicine stress test today and tomorrow. Requesting diet. Subjective 07/05: Afebrile. Currently he has chest "pressure". Does not radiate to the back of her up the neck/down left shoulder worse with deep inspiration. Not reproducible with palpation. Patient similar symptoms after eating yesterday for approximately 2 hours. Rates it 8 out of 10. Receiving diuretics, beta blockers and 1 dose of hydromorphone. Along with one dose of Maalox. Patient insisting on going to the commode first before we will provide the patient with these medications. 07/06: Sitting up in bed, denies chest pain. Ortho recommends Podiatry consult for wound debridement. Remains on IV Heparin for A Fib and post IN Objective Vital Signs Date Time Temp Pulse Resp B/P (MAP) Pulse Ox O2 Delivery O2 Flow Rate FiO2 07/06/17 10:00 102 07/06/17 08:00 98.6 16 118/77 (91) 98 07/06/17 07:50 Nasal Cannula 3.00 Intake and Output 07/06/17 07/06/17 07/07/17 08:00 16:00 00:00 Output Total 775 ml Balance -775 ml Result Diagram: 07/06/17 0630 07/06/17 0630 Imaging Last Impressions Myocardial Perfusion Scan Nuc Med 07/04/17 0800 Signed Impressions: Service Date/Time: Tuesday, July 04, 2017 14:17 - CONCLUSION: 1. Large fixed apical defect consistent with an area of infarction. There is no definite reversibility to suggest ischemia. 2. Markedly decreased calculated ejection fraction of 24%% with akinesis in the apex and global hypokinesis. RISK CATEGORY: High (>3%% Annual Mortality Rate) Noe Skinner MD Foot MRI 07/03/172013 Signed Impressions: Service Date/Time: Monday, July 03, 2017 08:58 - CONCLUSION: Extensive inflammatory changes beginning above the ankle extending through the hindfoot and forefoot as described above. Hugh Harris MD FACR Ankle MRI 07/03/17 0000 Signed Impressions: Service Date/Time: Monday, July 03, 2017 08:58 - CONCLUSION: The bulk of the inflammatory changes appear to be centered around the lateral malleolus and the joint. Septic arthritis is suspected. Osteomalacia of the distal fibula, distal tibia and talus are suspected. Septic joint is suspected. Wound communicates with the fibula with large fluid collection the flow tip of fibula. CT angiography would be of benefit to assess vascular in flow. Hugh Harris MD FACR Foot X-Ray 07/02/17 0000 Signed Impressions: Service Date/Time: June 19:12 - CONCLUSION: Possible lateral erosion of the fourth metatarsal head. Patient is scheduled for MRI. No other acute bony abnormalities are demonstrated. Patient is status post amputation of the fifth toe and resection of the fifth metatarsal. Drake Jarvis MD Chest X-Ray 07/01/172121 Signed Impressions: Service Date/Time: Saturday, July 01, 2017 21:34 - CONCLUSION: Normal examination. Jacob Pike MD Objective Remarks GENERAL: 49-year-old male, currently on nasal cannula and diltiazem, Heparin drip in no acute distress SKIN: Focused skin assessment warm/dry. Left lower extremity is currently wrapped in Kerlix with some serosanguineous drainage HEAD: Normocephalic. EYES: No scleral icterus. No injection or drainage. NECK: Supple, trachea midline. No JVD or lymphadenopathy. No meningismus CARDIOVASCULAR: Tachycardia, IR. S1, S2 no S4. Without murmur. RESPIRATORY: Breath sounds equal bilaterally. No accessory muscle use. GASTROINTESTINAL: Abdomen soft, non-tender, nondistended. MUSCULOSKELETAL: No cyanosis, bilateral chronic venous status changes, chronic stasis ulcerations to the left heel NEURO: AO x3 No FND. Strength appears equal symmetric. A/P Assessment and Plan Neuro/Psych: Anxiety disorder NOS Chronic narcotic use Acetaminophen 650 mg by mouth every 6 hours when necessary fever/pain 1-5 Morphine sulfate 2 mg IV distress. Oxycodone 10 mg by mouth every 6 hours. Pain 1-10 EEG: No seizures One-time dose of hydromorphone now 1 mg Pulm: Acute respiratory insufficiency Oxygen PRN keep sat >92%. Currently in 4 L nasal cannula Incentive spirometry while awake Albuterol/ipratropium aerosols every 6 hours with albuterol aerosols every 2 hours. Dyspnea CV: Non-STEMI Hypertension 2D echo - LVSF is moderately reduced EF 40-45%. with anteroseptal hypokinesis Mild mitral valve regurgitation. There is trace tricuspid valve regurgitation. There is estimated mild pulmonary hypertension present (range 40-50 mmHg). The inferior vena cava is dilated. There is less than 50% respiratory change in dimension of the inferior vena cava (abnormal). Cards is following- Dr. Tucker. Nuclear medicine stress test revealed fixed apical defect. No ischemic reversibility change. EF 24%. Global hypokinesis with focal akinesis at the apex. High risk factor Discussed with Dr. Melendez covering this weekend for Dr. Tucker. Optimize medically. Will reassess 07/06 EKG revealed atrial fibrillation rate around 110 with no ischemic changes Currently receiving diltiazem 60 mg every 6 hours/diltiazem drip and metoprolol 5 mill grams IV every 6 hours. Continue IV Heparin FEN/Renal/: Acute kidney injury in the setting chronic kidney disease stage IIIa Hyponatremia Hypophosphatemia Erectile dysfunction BPH Discontinued IV fluids Replace electrolytes as clinically indicated Monitor urine output Accurate I's and O's Avoid nephrotoxic medications Hold Tadalafil 10 mg daily Tamsulosin 0.4 mg by mouth daily Be continued GI: Hypoalbuminemia Anemia arrival requiring 3 units PRBCs Continue ADA diet Pantoprazole 40 mill grams IV twice a day for GI prophylaxis We'll consult GI for possible upper endoscopy. Once cardiac stabilized Docusate sodium/senna 1 tablet twice a day for bowel regimen ID: Staph aureus/group B beta strep bacteremia Septic arthritis left lower extremity Diabetic foot ulcer Currently on ampicillin/sulbactam and vancomycin per infectious disease/Dr. Wolf Abx per ID, monitor for signs of infections ( Fever, WBC). Nasal washing negative for Influenza MRI left lower extremity revealed left septic joint arthritis, degenerative changes of fibula, distal tibia and talus. Abscess/joint effusion and bone marrow edema noted. ID, Podiatry is following Vascular surgeon following as well BC 07/01: Group B beta strep staph aureus 07/02 - wound culture - Acinetobacter, staph aureus, group A beta strep Heme: Microcytic anemia Leukocytosis Monitor CBC daily. Follow trends Endo: Diabetes mellitus Humulin R u-500 35 units in the morning 25 units at night. Novulin N -100 sliding-scale insulin at home SSI High Novulog ac/HS at this facility 62 units sliding scale insulin past 24 hours DVT GI prophylaxis - SCD, heparin drip. Serial hemoglobins -Pantoprazole Patient has been non compliant and non cooperative with nursing staff and consultants. Level 3 Consult hospitalist to assume care in am 07/07/17. [facility] with Tele Jenelle Juan MD Jul 06, 2017 15:17
--- NOTE | 2017-07-06 16:03 | EKG ---
Date Performed: 07/05/2017 Time Performed: 14:10:15 PTAGE: 57 years EKG: ATRIAL FIBRILLATION WITH RAPID VENTRICULAR RESPONSE MODERATE INTRAVENTRICULAR CONDUCTION DE LAY NONSPECIFIC ST & T-WAVE ABNORMALITY ABNORMAL RHYTHM ECG Compared to PREVIOUS TRACING , atrial fibrillation has replaced Sinus rhythm . PREVIOUS TRACIN07/02/2017 07.53 DOCTOR: Jose Manuel Fulton Interpretating Date/Time 07/06/2017 16:01:30
--- NOTE | 2017-07-06 16:24 | PD.CARD.PN ---
Subjective Subjective Remarks No angina, no SOB, nuclear stress test shows a large apical fixed defect c/w old RI, EF 24%, and no evidence of ischemia Objective Medications Current Medications Medications (Trade) Dose Ordered Sig/Tri Route Start Time Stop Time Status Last Admin (Sodium Bicarbonate 8.4% Inj) 100 meq UNSCH PRN IV PUSH 07/02/17 00:30 (Sodium Bicarbonate 8.4% Inj) 50 meq UNSCH PRN IV PUSH 07/02/17 00:30 (NS Flush) 2 ml UNSCH PRN IV FLUSH 07/02/17 01:30 (NS Flush) 2 ml BID IV FLUSH 07/02/17 09:00 07/05/17 20:59 (Tylenol) 650 mg Q6H PRN PO 07/02/17 01:30 (Morphine Inj) 2 mg Q2H PRN IV PUSH 07/02/17 01:30 (Versed Inj) 2 mg Q1H PRN IV PUSH 07/02/17 01:30 (Zofran Inj) 4 mg Q6H PRN IV PUSH 07/02/17 01:30 07/06/17 05:15 (Heparin Inj) 5,000 units Q8HR SQ 07/02/17 06:00 Future Hold Miscellaneous Information 1 Q361D XX 07/02/17 01:30 (Chlorhexidine 2% Cloth) 3 pack Taper DAILY@04 TOP 07/02/17 04:00 06/28/18 03:59 07/05/17 04:00 (Chlorhexidine 2% Cloth) 3 pack UNSCH PRN TOP 07/02/17 01:30 (Emelia-Colace) 1 tab BID PO 07/02/17 09:00 07/05/17 08:51 (Senokot) 17.2 mg Q12H PRN PO 07/02/17 01:30 (Dulcolax Supp) 10 mg DAILY PRN RECTAL 07/02/17 01:30 (Lactulose Liq) 30 ml DAILY PRN PO 07/02/17 01:30 (Peridex 0.12% Liq) 15 ml BID@08,20 MT 07/02/17 08:00 07/05/17 08:00 (Lotrimin 1% Cream) 1 applic DAILY TOPICAL 07/02/17 09:00 (Roxicodone) 10 mg Q6H PRN PO 07/02/17 04:15 07/05/17 20:59 (Flomax) 0.4 mg HS PO 07/02/17 21:00 07/05/17 20:58 Pharmacy Profile Note 0 ml @ 0 mls/hr UNSCH OTHER 07/02/17 10:45 Potassium Chloride 100 ml @ 50 mls/hr Q2H PRN IV 07/02/17 16:30 (K-Lyte Cl Eff) 50 meq UNSCH PRN PO 07/02/17 16:30 Potassium Chloride 100 ml @ 25 mls/hr UNSCH PRN IV 07/02/17 16:30 Potassium Chloride 100 ml @ 50 mls/hr Q2H PRN IV 07/02/17 16:30 Magnesium Sulfate 4 gm/Sodium Chloride 100 ml @ 50 mls/hr UNSCH PRN IV 07/02/17 16:30 (Mag-Ox) 800 mg UNSCH PRN PO 07/02/17 16:30 Magnesium Sulfate 2 gm/Sodium Chloride 100 ml @ 50 mls/hr UNSCH PRN IV 07/02/17 16:30 (K-Phos) 2,000 mg Q4H PRN PO 07/02/17 16:30 Sodium Phosphate 30 mmol/Sodium Chloride 250 ml @ 42 mls/hr UNSCH PRN IV 07/02/17 16:30 07/02/17 18:34 (K-Phos) 2,000 mg UNSCH PRN PO/TUBE 07/02/17 16:30 Potassium Phosphate 30 mmol/ Sodium Chloride 260 ml @ 42 mls/hr UNSCH PRN IV 07/02/17 16:30 Potassium Chloride 100 ml @ 25 mls/hr Q4H PRN IV 07/02/17 16:45 (NovoLIN N INJ) 25 units HS SQ 07/02/17 21:00 07/05/17 20:59 (NovoLIN N INJ) 35 units DAILY SQ 07/03/17 09:00 (D50w (Vial) Inj) 50 ml UNSCH PRN IV PUSH 07/02/17 20:30 (Glucagon Inj) 1 mg UNSCH PRN OTHER 07/02/17 20:30 (NovoLOG SUPPLEMENTAL SCALE) 1 ACHS SLIDING SCALE SQ 07/02/17 21:00 07/06/17 12:00 Ampicillin Sodium/ Sulbactam Sodium 3 gm/Sodium Chloride 100 ml @ 200 mls/hr Q6H IV 07/04/17 12:00 07/06/17 14:08 (Duoneb Neb) 1 ampule Q6HR NEB NEB 07/04/17 16:00 07/04/17 22:28 (Albuterol Neb) 2.5 mg Q2HR NEB PRN NEB 07/04/17 11:45 (Protonix Inj) 40 mg Q12H IV PUSH 07/04/17 14:00 07/06/17 14:07 Lactated Ringer's 1,000 ml @ 30 mls/hr Q24H PRN IV 07/05/17 22:45 07/08/17 22:44 Sodium Chloride 500 ml @ 30 mls/hr [id number] PRN IV 07/05/17 22:45 07/08/17 22:44 (Betadine 5% Antisepsis Kit) 1 applic BLADE CHANGER PRN EACH NARE 07/05/17 22:45 07/08/17 22:44 (Chlorhexidine 2% Cloth) 3 pack BLADE CHANGER PRN TOPICAL 07/05/17 22:45 07/08/17 22:44 Vancomycin HCl 1750 mg/Sodium Chloride 517.5 ml @ 250 mls/hr Q24H IV 07/06/17 06:00 07/06/17 06:09 Miscellaneous Information SPECIFIC LAB TO BE ... ONCE ONCE .XX 07/08/17 05:45 07/08/17 05:46 Heparin Sodium/ Dextrose 250 ml @ 10 mls/hr TITRATE PRN IV 07/05/17 14:00 07/05/17 16:02 (Nitrostat Sl) 0.3 mg Q5M PRN SL 07/05/17 14:30 (Cardizem) 60 mg QID PO 07/05/17 18:00 07/06/17 14:08 (Lopressor Inj) 5 mg Q6H IV PUSH 07/05/17 16:00 07/06/17 05:21 Diltiazem HCl 125 mg/Sodium Chloride 125 ml @ 5 mls/hr TITRATE PRN IV 07/05/17 19:45 Vital Signs / I&O Vital Signs Date Time Temp Pulse Resp B/P (MAP) Pulse Ox O2 Delivery O2 Flow Rate FiO2 07/06/17 10:00 102 07/06/17 08:00 98.6 95 16 118/77 (91) 98 07/06/17 08:00 102 07/06/17 07:50 98 Nasal Cannula 3.00 07/06/17 06:00 90 07/06/17 04:00 101 07/06/17 04:00 97.8 101 22 126/74 (91) 98 07/06/17 02:00 93 07/06/17 00:00 101 07/06/17 00:00 101 23 113/76 (88) 96 07/05/17 23:26 96 Nasal Cannula 3.00 07/05/17 22:00 87 07/05/17 20:46 96 Nasal Cannula 3.00 07/05/17 20:00 97.8 98 25 110/73 (85) 94 07/05/17 20:00 98 07/05/17 16:30 94 23 108/49 (68) 95 I/O 07/05/17 07/05/17 07/05/17 07/06/17 07/06/17 07/06/17 07:00 15:00 23:00 07:00 15:00 23:00 Intake Total 360 ml 720 ml 1800 ml Output Total 375 ml 1200 ml 775 ml Balance -15 ml 720 ml 600 ml -775 ml Intake Oral 1200 ml IV Total 360 ml 720 ml 600 ml Output Urine Total 375 ml 1200 ml 775 ml Stool Total 0 ml Physical Exam GENERAL: In NAD SKIN: Warm and dry. HEAD: Normocephalic. EYES: No scleral icterus. No injection or drainage. NECK: Supple, trachea midline. No JVD or lymphadenopathy. CARDIOVASCULAR: Irregular rate and rhythm, tachy, without murmurs, gallops, or rubs. RESPIRATORY: Breath sounds equal bilaterally. No accessory muscle use. GASTROINTESTINAL: Abdomen soft, non-tender, nondistended. MUSCULOSKELETAL: No cyanosis, LE edema and deformities. Laboratory Laboratory Tests Test 07/05/17 20:45 07/06/17 06:30 Hemoglobin 8.9 GM/DL 8.3 GM/DL Activated Partial Thromboplast Time 28.9 SEC 33.2 SEC Troponin I 2.60 NG/ML 2.72 NG/ML White Blood Count 10.3 TH/MM3 Red Blood Count 3.28 MIL/MM3 Hematocrit 24.4 % Mean Corpuscular Volume 74.4 FL Mean Corpuscular Hemoglobin 25.2 PG Mean Corpuscular Hemoglobin Concent 33.9 % Red Cell Distribution Width 22.0 % Platelet Count 511 TH/MM3 Mean Platelet Volume 7.5 FL Neutrophils (%) (Auto) 69.0 % Lymphocytes (%) (Auto) 17.0 % Monocytes (%) (Auto) 9.2 % Eosinophils (%) (Auto) 4.2 % Basophils (%) (Auto) 0.6 % Neutrophils # (Auto) 7.1 TH/MM3 Lymphocytes # (Auto) 1.8 TH/MM3 Monocytes # (Auto) 1.0 TH/MM3 Eosinophils # (Auto) 0.4 TH/MM3 Basophils # (Auto) 0.1 TH/MM3 CBC Comment AUTO DIFF Differential Comment AUTO DIFF CONFIRMED Blood Urea Nitrogen 30 MG/DL Creatinine 1.33 MG/DL Random Glucose 80 MG/DL Total Protein 6.5 GM/DL Albumin 1.6 GM/DL Calcium Level 8.2 MG/DL Phosphorus Level 2.8 MG/DL Magnesium Level 2.0 MG/DL Alkaline Phosphatase 307 U/L Aspartate Amino Transf (AST/SGOT) 17 U/L Alanine Aminotransferase (ALT/SGPT) 19 U/L Total Bilirubin 0.6 MG/DL Sodium Level 133 MEQ/L Potassium Level 3.6 MEQ/L Chloride Level 101 MEQ/L Carbon Dioxide Level 20.9 MEQ/L Anion Gap 11 MEQ/L Estimat Glomerular Filtration Rate 55 ML/MIN Assessment and Plan Problem List: (1) Angina pectoris ICD Codes: I20.9 - Angina pectoris, unspecified (2) Elevated troponin ICD Codes: R74.8 - Abnormal levels of other serum enzymes (3) Uncontrolled type 2 DM with hyperosmolar nonketotic hyperglycemia ICD Codes: E11.00 - Type 2 diabetes mellitus with hyperosmolarity without nonketotic hyperglycemic-hyperosmolar coma ([facility]) (4) CHF (congestive heart failure) ICD Codes: I50.9 - Heart failure, unspecified (5) CAD (coronary artery disease) ICD Codes: I25.10 - Atherosclerotic heart disease of [place] coronary artery without angina pectoris (6) Ischemic cardiomyopathy ICD Codes: I25.5 - Ischemic cardiomyopathy Assessment and Plan Nuclear stress test c/w severe ischemic cardiomyopathy due to a large apical infarct, but no evidence of ischemia. Cardiac risk of anesthesia is increased but not prohibitive. Recommend to proceed with surgery as planned. Titrate tx for CHF. Continue rate control. Continue abxs as per ID. Continue ICU care. Tika Tucker MD Jul 06, 2017 16:24
--- NOTE | 2017-07-06 17:55 | HHI.IDPN ---
Subjective Subjective Remarks +nuclear stress test shows a large apical fixed defect c/w old MA, EF 24%, and no evidence of ischemia Clx positive for MSSA / Dr. Love has requested Dr. Linton to help with management of this case. Patient refuses discussion of possible below-knee amputation of left lower extremity. He states that he will only agree to irrigation debridement of the ankle. 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 Vital Signs Date Time Temp Pulse Resp B/P (MAP) Pulse Ox O2 Delivery O2 Flow Rate FiO2 07/06/17 10:00 102 07/06/17 08:00 98.6 95 16 118/77 (91) 98 07/06/17 08:00 102 07/06/17 07:50 98 Nasal Cannula 3.00 07/06/17 06:00 90 07/06/17 04:00 101 07/06/17 04:00 97.8 101 22 126/74 (91) 98 07/06/17 02:00 93 07/06/17 00:00 101 07/06/17 00:00 101 23 113/76 (88) 96 07/05/17 23:26 96 Nasal Cannula 3.00 07/05/17 22:00 87 07/05/17 20:46 96 Nasal Cannula 3.00 07/05/17 20:00 97.8 98 25 110/73 (85) 94 07/05/17 20:00 98 . Laboratory Tests Test 07/05/17 08:55 07/05/17 15:23 07/05/17 20:45 07/06/17 06:30 White Blood Count 12.2 TH/MM3 13.0 TH/MM3 10.3 TH/MM3 Red Blood Count 3.62 MIL/MM3 3.87 MIL/MM3 3.28 MIL/MM3 Hemoglobin 9.0 GM/DL 9.2 GM/DL 8.9 GM/DL 8.3 GM/DL Hematocrit 27.1 % 29.4 % 24.4 % Mean Corpuscular Volume 74.9 FL 75.9 FL 74.4 FL Mean Corpuscular Hemoglobin 24.8 PG 23.9 PG 25.2 PG Mean Corpuscular Hemoglobin Concent 33.2 % 31.5 % 33.9 % Red Cell Distribution Width 21.4 % 21.9 % 22.0 % Platelet Count 457 TH/MM3 518 TH/MM3 511 TH/MM3 Mean Platelet Volume 7.2 FL 7.4 FL 7.5 FL Neutrophils (%) (Auto) 73.6 % 69.0 % Lymphocytes (%) (Auto) 12.5 % 17.0 % Monocytes (%) (Auto) 8.4 % 9.2 % Eosinophils (%) (Auto) 5.1 % 4.2 % Basophils (%) (Auto) 0.4 % 0.6 % Neutrophils # (Auto) 9.0 TH/MM3 7.1 TH/MM3 Lymphocytes # (Auto) 1.5 TH/MM3 1.8 TH/MM3 Monocytes # (Auto) 1.0 TH/MM3 1.0 TH/MM3 Eosinophils # (Auto) 0.6 TH/MM3 0.4 TH/MM3 Basophils # (Auto) 0.1 TH/MM3 0.1 TH/MM3 CBC Comment AUTO DIFF AUTO DIFF Differential Total Cells Counted 100 Neutrophils % (Manual) 75 % Band Neutrophils % 8 % Lymphocytes % 7 % Monocytes % 4 % Eosinophils % 4 % Neutrophils # (Manual) 10.4 TH/MM3 Metamyelocytes 1 % Myelocytes 1 % Differential Comment FINAL DIFF MANUAL AUTO DIFF CONFIRMED Platelet Estimate HIGH Platelet Morphology Comment NORMAL Laboratory Tests Test 07/05/17 08:55 07/05/17 15:23 07/05/17 20:45 07/06/17 06:30 Blood Urea Nitrogen 33 MG/DL 30 MG/DL Creatinine 1.38 MG/DL 1.33 MG/DL Random Glucose 150 MG/DL 80 MG/DL Total Protein 6.6 GM/DL 6.5 GM/DL Albumin 1.7 GM/DL 1.6 GM/DL Calcium Level 7.8 MG/DL 8.2 MG/DL Phosphorus Level 2.7 MG/DL 2.8 MG/DL Magnesium Level 2.0 MG/DL 2.0 MG/DL Alkaline Phosphatase 267 U/L 307 U/L Aspartate Amino Transf (AST/SGOT) 17 U/L 17 U/L Alanine Aminotransferase (ALT/SGPT) 18 U/L 19 U/L Total Bilirubin 0.5 MG/DL 0.6 MG/DL Sodium Level 133 MEQ/L 133 MEQ/L Potassium Level 3.8 MEQ/L 3.6 MEQ/L Chloride Level 105 MEQ/L 101 MEQ/L Carbon Dioxide Level 18.4 MEQ/L 20.9 MEQ/L Anion Gap 10 MEQ/L 11 MEQ/L Estimat Glomerular Filtration Rate 53 ML/MIN 55 ML/MIN Lactic Acid Level 1.2 mmol/L Troponin I 2.71 NG/ML 2.53 NG/ML 2.60 NG/ML 2.72 NG/ML Triglycerides Level 167 MG/DL Cholesterol Level 110 MG/DL LDL Cholesterol 56 MG/DL HDL Cholesterol 20.2 MG/DL Cholesterol/HDL Ratio 5.44 RATIO Thyroid Stimulating Hormone 3rd Gen 3.360 uIU/ML Imaging Last Impressions Chest X-Ray 07/05/17 0000 Signed Impressions: Service Date/Time: Wednesday, July 05, 2017 15:40 - CONCLUSION: No acute disease. Noe Skniner MD Myocardial Perfusion Scan Nuc Med 07/04/17 0800 Signed Impressions: Service Date/Time: Tuesday, July 04, 2017 14:17 - CONCLUSION: 1. Large fixed apical defect consistent with an area of infarction. There is no definite reversibility to suggest ischemia. 2. Markedly decreased calculated ejection fraction of 24%% with akinesis in the apex and global hypokinesis. RISK CATEGORY: High (>3%% Annual Mortality Rate) Noe Skinner MD Foot MRI 07/03/172013 Signed Impressions: Service Date/Time: Monday, July 03, 2017 08:58 - CONCLUSION: Extensive inflammatory changes beginning above the ankle extending through the hindfoot and forefoot as described above. Hugh Harris MD FACR Ankle MRI 07/03/17 0000 Signed Impressions: Service Date/Time: Monday, July 03, 2017 08:58 - CONCLUSION: The bulk of the inflammatory changes appear to be centered around the lateral malleolus and the joint. Septic arthritis is suspected. Osteomalacia of the distal fibula, distal tibia and talus are suspected. Septic joint is suspected. Wound communicates with the fibula with large fluid collection the flow tip of fibula. CT angiography would be of benefit to assess vascular in flow. Hugh Harris MD FACR Foot X-Ray 07/02/17 0000 Signed Impressions: Service Date/Time: June 19:12 - CONCLUSION: Possible lateral erosion of the fourth metatarsal head. Patient is scheduled for MRI. No other acute bony abnormalities are demonstrated. Patient is status post amputation of the fifth toe and resection of the fifth metatarsal. Drake Jarvis MD Physical Exam CONSTITUTIONAL/GENERAL: This is an adequately nourished patient, in no apparent distress. Appears sick TUBES/LINES/DRAINS: SKIN: No jaundice, rashes, or lesions. Skin temperature appropriate. Not diaphoretic. CARDIOVASCULAR: irregular rate and rhythm without murmurs, gallops, or rubs. Afinb on monitor No JVD. Peripheral pulses symmetric. RESPIRATORY/CHEST: Symmetric, unlabored respirations. Clear to auscultation. Breath sounds equal bilaterally. No wheezes, rales, or rhonchi. b/b diminished BS GASTROINTESTINAL: Abdomen soft, non-tender, nondistended. No hepato-splenomegaly , or palpable masses. No guarding. Bowel sounds present. GENITOURINARY: Without palpable bladder distension. MUSCULOSKELETAL: Extremities without clubbing, cyanosis, L foot with dressing in place Massive tight 4+ edema BLE LYMPHATICS: No palpable cervical or supraclavicular adenopathy. NEUROLOGICAL: Awake and alert. Motor and sensory grossly within normal limits. Follows commands. Clear speech. Moves all extremities. PSYCHIATRIC: No obvious anxiety/depression. no apparent hallucinations or other psychotic thought process. Assessment & Plan Remarks Sepsis from infected L foot, MSSA L foot DFI and likely osteo given the chronicity of the problem - extemnsive osteo, septic ankele, unsalvagible limb, but pt refusing amputaiton - mixed aerobic/anaerobic, polimicrobial infx - agrre with ortho This is limb threatening, life threatening infeciton NSTEMI Sever CHF ARF Cough, can not exclude denise broncho pneumonaia, clx with nl resp raghu - probnably related to heart failure cont unasyn, dc vanco awaiting pt's decision prognosis for limb salavage is extremely poor, pt is at high risk for sepsis and further infectious coplications e.i. endocarditis, vertebral osteo and other conservative mngmnt with abx alone and/or I+D is not going to be successfull Coty Wolf MD Jul 06, 2017 17:55
[2017-07-06] MEDS: METOPROLOL TARTRATE 25 MG TAB PO SCH (19:36)
[2017-07-06] MEDS: TAMSULOSIN HCL 0.4 MG CAP PO SCH (19:36)
[2017-07-06] MEDS ORDERED: PROMETHAZINE HCL 25 MG TAB PO ONE (21:15)
[2017-07-07] VITALS (14 sets, daily range): BP systolic 102–146; BP diastolic 60–83; PULSE 83–115; RESP 15–20; TEMP 97.7–99.5; O2SAT 84–99
[2017-07-07] MEDS: HEPARIN-D5W 25,000 U/250 ML 250 ML IV PRN (00:27)
[2017-07-07] MEDS: PANTOPRAZOLE SODIUM 40 MG VIAL IV PUSH SCH ×2 (02:00→14:59)
[2017-07-07] MEDS: RESP: ALBUTEROL 2.5 MG/IPRATROPIUM 0.5 MG NEB (SCH) NEB ×4 (03:28→21:10)
[2017-07-07] MEDS: CHLORHEXIDINE GLUCONATE 2 % 1 PACK (2 CLOTHS) TOP SCH (04:00)
[2017-07-07] MEDS: AMPICILLIN-SULBACTAM INJ 3 GM in SODIUM CHLORIDE 0.9% INJ 100 ML IV SCH ×3 (05:56→17:06)
[2017-07-07] MEDS: VANCOMYCIN INJ 1,750 MG in SODIUM CHLORID 0.9% 500 ML INJ 500 ML IV SCH (05:56)
[2017-07-07] MEDS: INSULIN ASPART SUPPLEMENTAL SCALE SQ SCH ×4 (08:00→21:00)
[2017-07-07] MEDS: CHLORHEXIDINE 0.12% (ORAL KIT) 15 ML CUP MT SCH ×2 (08:00→20:00)
[2017-07-07] MEDS: LISINOPRIL 5 MG TAB PO SCH (08:26)
[2017-07-07] MEDS: METOPROLOL TARTRATE 25 MG TAB PO SCH ×2 (08:26→21:15)
[2017-07-07] MEDS: SODIUM CHLORIDE 0.9% FLUSH 10 ML FLUSH IV FLUSH SCH ×2 (08:27→21:00)
[2017-07-07] MEDS: DILTIAZEM HCL 60 MG TAB PO SCH ×4 (08:27→21:15)
[2017-07-07] MEDS: DOCUSATE SODIUM 50 MG/SENNA 8.6 MG TAB PO SCH ×2 (08:28→21:14)
[2017-07-07] MEDS: CLOTRIMAZOLE 1% CREAM 15 GM TOPICAL SCH (08:28)
[2017-07-07] MEDS: INSULIN HUMAN NPH 1,000 UNITS/10 ML VIAL SQ SCH ×2 (08:29→21:00)
--- NOTE | 2017-07-07 08:30 | HHI.CCPN ---
Subjective Remarks/Hospital Course 57-year-old male presents complaining of fever, coughing congestion, nausea vomiting, abdominal pain. Patient states that the symptoms started 4 days ago. Patient states that he has poor appetite. Patient has history of diabetes and blood sugars been running high at home. Patient states the abdominal pain is cramping pain intermittent pain associate with vomiting. Patient states that abdominal pain localized to lower abdomen. Patient denies any pain radiation. Patient denies any dysuria or frequency. He admits his cough is intermittent and mild productive. Patient denies any chest pain. Patient denies any shortness of breath. 07/03 No events overbright. Renal function is improving with Cr: 1.47 today. Off insulin drip. Afebrile. 07/04: Currently afebrile and hemodynamically stable. Remains on diltiazem drip at 15 mg an hour. Plan for two-part nuclear medicine stress test today and tomorrow. Requesting diet. Subjective 07/05: Afebrile. Currently he has chest "pressure". Does not radiate to the back of her up the neck/down left shoulder worse with deep inspiration. Not reproducible with palpation. Patient similar symptoms after eating yesterday for approximately 2 hours. Rates it 8 out of 10. Receiving diuretics, beta blockers and 1 dose of hydromorphone. Along with one dose of Maalox. Patient insisting on going to the commode first before we will provide the patient with these medications. 07/06: Sitting up in bed, denies chest pain. Ortho recommends Podiatry consult for wound debridement. Remains on IV Heparin for A Fib and post FL 07/07 PAtient is lying in bed in NAD. Afebrile. On Heparin drip. Objective Vital Signs Date Time Temp Pulse Resp B/P (MAP) Pulse Ox O2 Delivery O2 Flow Rate FiO2 07/07/17 06:00 91 07/07/17 04:00 98.6 20 102/67 (79) 96 07/06/17 20:24 Nasal Cannula 4.00 Intake and Output 07/07/17 07/07/17 07/08/17 08:00 16:00 00:00 Intake Total 100 ml Balance 100 ml Result Diagram: 07/06/17 0630 07/06/17 0630 Other Results Laboratory Tests Test 07/06/17 21:14 Activated Partial Thromboplast Time 29.6 SEC Imaging Last Impressions Chest X-Ray 07/05/17 0000 Signed Impressions: Service Date/Time: Wednesday, July 05, 2017 15:40 - CONCLUSION: No acute disease. Noe Skinner MD Myocardial Perfusion Scan Nuc Med 07/04/17 0800 Signed Impressions: Service Date/Time: Tuesday, July 04, 2017 14:17 - CONCLUSION: 1. Large fixed apical defect consistent with an area of infarction. There is no definite reversibility to suggest ischemia. 2. Markedly decreased calculated ejection fraction of 24%% with akinesis in the apex and global hypokinesis. RISK CATEGORY: High (>3%% Annual Mortality Rate) Noe Skinner MD Foot MRI 07/03/172013 Signed Impressions: Service Date/Time: Monday, July 03, 2017 08:58 - CONCLUSION: Extensive inflammatory changes beginning above the ankle extending through the hindfoot and forefoot as described above. Hugh Harris MD FACR Ankle MRI 07/03/17 0000 Signed Impressions: Service Date/Time: Monday, July 03, 2017 08:58 - CONCLUSION: The bulk of the inflammatory changes appear to be centered around the lateral malleolus and the joint. Septic arthritis is suspected. Osteomalacia of the distal fibula, distal tibia and talus are suspected. Septic joint is suspected. Wound communicates with the fibula with large fluid collection the flow tip of fibula. CT angiography would be of benefit to assess vascular in flow. Hugh Harris MD FACR Foot X-Ray 07/02/17 0000 Signed Impressions: Service Date/Time: June 19:12 - CONCLUSION: Possible lateral erosion of the fourth metatarsal head. Patient is scheduled for MRI. No other acute bony abnormalities are demonstrated. Patient is status post amputation of the fifth toe and resection of the fifth metatarsal. Drake Jarvis MD Objective Remarks GENERAL: 49-year-old male, currently on nasal cannula in no acute distress SKIN: Focused skin assessment warm/dry. Left lower extremity is currently wrapped in Kerlix with some serosanguineous drainage HEAD: Normocephalic. EYES: No scleral icterus. No injection or drainage. NECK: Supple, trachea midline. No JVD or lymphadenopathy. No meningismus CARDIOVASCULAR: Tachycardia, IR. S1, S2 no S4. Without murmur. RESPIRATORY: Breath sounds equal bilaterally. No accessory muscle use. GASTROINTESTINAL: Abdomen soft, non-tender, nondistended. MUSCULOSKELETAL: No cyanosis, bilateral chronic venous status changes, chronic stasis ulcerations to the left heel NEURO: AO x3 No FND. Strength appears equal symmetric. A/P Assessment and Plan Neuro/Psych: Anxiety disorder NOS Chronic narcotic use Acetaminophen 650 mg by mouth every 6 hours when necessary fever/pain 1-5 Morphine sulfate 2 mg IV distress. Oxycodone 10 mg by mouth every 6 hours. Pain 1-10 EEG: No seizures One-time dose of hydromorphone now 1 mg Pulm: Acute respiratory insufficiency Oxygen PRN keep sat >92%. Currently in 4 L nasal cannula Incentive spirometry while awake Albuterol/ipratropium aerosols every 6 hours with albuterol aerosols every 2 hours. Dyspnea CV: Non-STEMI Afib Hypertension 2D echo - LVSF is moderately reduced EF 40-45%. with anteroseptal hypokinesis Mild mitral valve regurgitation. There is trace tricuspid valve regurgitation. There is estimated mild pulmonary hypertension present (range 40-50 mmHg). The inferior vena cava is dilated. There is less than 50% respiratory change in dimension of the inferior vena cava (abnormal). Cards is following- Dr. Tucker. Nuclear medicine stress test revealed fixed apical defect. No ischemic reversibility change. EF 24%. Global hypokinesis with focal akinesis at the apex. High risk factor Continue IV Heparin- Monitor PTT On Lopressor 12.5mg Q12, Cardizem 60mg Q6, Lisinopril 2.5mg daily. FEN/Renal/: Acute kidney injury in the setting chronic kidney disease stage IIIa Hyponatremia Hypophosphatemia Erectile dysfunction BPH Monitor renal function, I/O's, electrolytes replacement per protocol. Tamsulosin 0.4 mg by mouth daily GI: Hypoalbuminemia Anemia arrival requiring 3 units PRBCs NPO for possible irrigation and debridement of his foot. Pantoprazole 40 mill grams IV twice a day for GI prophylaxis GI is following Docusate sodium/senna 1 tablet twice a day for bowel regimen ID: Staph aureus/group B beta strep bacteremia Septic arthritis left lower extremity Diabetic foot ulcer Currently on ampicillin/sulbactam and vancomycin per infectious disease/Dr. Wolf Abx per ID, monitor for signs of infections ( Fever, WBC). Nasal washing negative for Influenza MRI left lower extremity revealed left septic joint arthritis, degenerative changes of fibula, distal tibia and talus. Abscess/joint effusion and bone marrow edema noted. ID, Podiatry is following, For possible irrigation and debridement today Vascular surgeon following as well BC 07/01: Group B beta strep staph aureus 07/02 - wound culture - Acinetobacter, staph aureus, group A beta strep Heme: Microcytic anemia Leukocytosis Monitor CBC daily. Follow trends Endo: Diabetes mellitus Humulin R u-500 35 units in the morning 25 units at night. Novulin N -100 sliding-scale insulin at home SSI High Novulog ac/HS DVT GI prophylaxis - SCD, heparin drip. -Pantoprazole Patient has been non compliant and non cooperative with nursing staff and consultants. Check labs today Level 3 Cy Andrea MD Jul 07, 2017 08:30
[2017-07-07 09:25] LABS: AUTOMATED NEUTROPHIL # 6.9 TH/MM3 (1.8-7.7); BASOPHIL % 0.5 % (0.0-2.0); EOSINOPHIL # 0.4 TH/MM3 (0-0.4); EOSINOPHIL % 4.5 % (0.0-4.0); HEMATOCRIT 25.8 % (39.0-51.0); HEMOGLOBIN 8.6 GM/DL (13.0-17.0); LYMPHOCYTE # 1.7 TH/MM3 (1.0-4.8); MEAN CELL VOLUME 74.8 FL (80.0-100.0); MEAN CORPUSCULAR HEMOGLOBIN 24.9 PG (27.0-34.0); MEAN CORPUSCULAR HGB CONC 33.2 % (32.0-36.0); MEAN PLATELET VOLUME 7.2 FL (7.0-11.0); MONO % 8.7 % (0.0-8.0); MONOCYTE # 0.9 TH/MM3 (0-0.9); NEUT % 69.3 % (16.0-70.0); PLATELET COUNT 507 TH/MM3 (150-450); RED BLOOD COUNT 3.44 MIL/MM3 (4.50-5.90); RED CELL DISTRIBUTION WIDTH 22.3 % (11.6-17.2); WHITE BLOOD COUNT 9.9 TH/MM3 (4.0-11.0)
[2017-07-07 09:46] LABS: BICARBONATE 20.8 MEQ/L (21.0-32.0); CALCIUM 7.9 MG/DL (8.5-10.1); CREATININE 1.3 MG/DL (0.60-1.30); MAGNESIUM 2.1 MG/DL (1.5-2.5)
[2017-07-07 09:53] LABS: TROPONIN I 2.82 NG/ML (0.02-0.05)
--- NOTE | 2017-07-07 11:40 | PD.ORT.PN ---
Subjective Subjective Remarks Luther Was seen and evaluated today. Patient is awake. He appears mildly agitated. Objective Vitals Vital Signs Date Time Temp Pulse Resp B/P (MAP) Pulse Ox O2 Delivery O2 Flow Rate FiO2 07/07/17 09:38 97 Nasal Cannula 4.00 07/07/17 08:00 97.7 90 15 122/67 (85) 99 07/07/17 08:00 90 07/07/17 06:00 91 07/07/17 04:00 98.6 94 20 102/67 (79) 96 07/07/17 04:00 94 07/07/17 02:00 105 07/07/17 02:00 102 07/07/17 00:00 105 07/07/17 00:00 98.2 105 16 146/83 (104) 96 07/06/17 22:00 101 07/06/17 20:24 93 Nasal Cannula 4.00 07/06/17 20:00 105 07/06/17 20:00 98.7 105 18 128/80 (96) 90 07/06/17 19:37 19 07/06/17 18:00 102 07/06/17 16:00 102 07/06/17 16:00 98.4 91 19 98/54 (69) 90 07/06/17 14:00 102 07/06/17 12:00 102 07/06/17 12:00 98.0 107 22 119/70 (86) 89 I/O 07/06/17 07/06/17 07/06/17 07/07/17 07/07/17 07/07/17 07:00 15:00 23:00 07:00 15:00 23:00 Intake Total 830 ml 100 ml Output Total 775 ml 800 ml 850 ml Balance -775 ml 30 ml 100 ml -850 ml Intake Oral 480 ml IV Total 350 ml 100 ml Output Urine Total 775 ml 800 ml 850 ml # Bowel Movements 1 1 Result Diagram: 07/07/1790207/07/17902 Objective Remarks Left lower extremity Severe Varus deformation of foot and ankle bilaterally Dressing in place with mild/moderate drainage - dressing removed revealing ulceration over ankle with open wound over lateral foot--purulent drainage present Moderate swelling ankle/leg as noted yesterday Assessment & Plan Assessment and Plan Left ankle infection with osteomyelitis of distal fibula and possible distal tibia and talus Patient has a condition that is not curable with simple irrigation debridement and antibiotics--only viable option for cure of his osteomyelitis would be below -knee amputation Patient refuses discussion of below-knee amputation of left lower extremity. He has been seeing wound care prior to this admission. He understands that chronic nature of this wound and medical history of being diabetic that this wound is unlikely to heal. He states that he will only agree to irrigation debridement of the ankle. Patient's best course of treatment would be a [id number] amputation, however he continues to refuse amputation continue daily dressing changes and will continue medical care to help with stabilization Esdras Serna MD Jul 07, 2017 11:40
--- NOTE | 2017-07-07 13:51 | HHI.IDPN ---
Subjective Subjective Remarks Clx positive for MSSA 2/2 Dr. Linton also recommended BKA Patient refuses discussion of possible below-knee amputation of left lower extremity. He states that he will only agree to irrigation debridement of the ankle. 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 Vital Signs Date Time Temp Pulse Resp B/P (MAP) Pulse Ox O2 Delivery O2 Flow Rate FiO2 07/07/17 12:00 97 07/07/17 10:00 83 07/07/17 09:38 97 Nasal Cannula 4.00 07/07/17 08:00 97.7 90 15 122/67 (85) 99 07/07/17 08:00 90 07/07/17 06:00 91 07/07/17 04:00 98.6 94 20 102/67 (79) 96 07/07/17 04:00 94 07/07/17 02:00 105 07/07/17 02:00 102 07/07/17 00:00 105 07/07/17 00:00 98.2 105 16 146/83 (104) 96 07/06/17 22:00 101 07/06/17 20:24 93 Nasal Cannula 4.00 07/06/17 20:00 105 07/06/17 20:00 98.7 105 18 128/80 (96) 90 07/06/17 19:37 19 07/06/17 18:00 102 07/06/17 16:00 102 07/06/17 16:00 98.4 91 19 98/54 (69) 90 07/06/17 14:00 102 07/07/17 07/07/17 07/08/17 15:00 23:00 07:00 Output Total 850 ml Balance -850 ml Output Urine Total 850 ml # Bowel Movements 1 . Laboratory Tests Test 07/05/17 15:23 07/05/17 20:45 07/06/17 06:30 07/07/17 09:03 White Blood Count 13.0 TH/MM3 10.3 TH/MM3 9.9 TH/MM3 Red Blood Count 3.87 MIL/MM3 3.28 MIL/MM3 3.44 MIL/MM3 Hemoglobin 9.2 GM/DL 8.9 GM/DL 8.3 GM/DL 8.6 GM/DL Hematocrit 29.4 % 24.4 % 25.8 % Mean Corpuscular Volume 75.9 FL 74.4 FL 74.8 FL Mean Corpuscular Hemoglobin 23.9 PG 25.2 PG 24.9 PG Mean Corpuscular Hemoglobin Concent 31.5 % 33.9 % 33.2 % Red Cell Distribution Width 21.9 % 22.0 % 22.3 % Platelet Count 518 TH/MM3 511 TH/MM3 507 TH/MM3 Mean Platelet Volume 7.4 FL 7.5 FL 7.2 FL Neutrophils (%) (Auto) 69.0 % 69.3 % Lymphocytes (%) (Auto) 17.0 % 17.0 % Monocytes (%) (Auto) 9.2 % 8.7 % Eosinophils (%) (Auto) 4.2 % 4.5 % Basophils (%) (Auto) 0.6 % 0.5 % Neutrophils # (Auto) 7.1 TH/MM3 6.9 TH/MM3 Lymphocytes # (Auto) 1.8 TH/MM3 1.7 TH/MM3 Monocytes # (Auto) 1.0 TH/MM3 0.9 TH/MM3 Eosinophils # (Auto) 0.4 TH/MM3 0.4 TH/MM3 Basophils # (Auto) 0.1 TH/MM3 0.0 TH/MM3 CBC Comment AUTO DIFF AUTO DIFF Differential Comment AUTO DIFF CONFIRMED AUTO DIFF CONFIRMED Platelet Estimate HIGH Platelet Morphology Comment NORMAL Laboratory Tests Test 07/05/17 15:23 07/05/17 20:45 07/06/17 06:30 07/07/17 09:03 Troponin I 2.53 NG/ML 2.60 NG/ML 2.72 NG/ML 2.82 NG/ML Blood Urea Nitrogen 30 MG/DL 27 MG/DL Creatinine 1.33 MG/DL 1.30 MG/DL Random Glucose 80 MG/DL 197 MG/DL Total Protein 6.5 GM/DL Albumin 1.6 GM/DL Calcium Level 8.2 MG/DL 7.9 MG/DL Phosphorus Level 2.8 MG/DL 3.0 MG/DL Magnesium Level 2.0 MG/DL 2.1 MG/DL Alkaline Phosphatase 307 U/L Aspartate Amino Transf (AST/SGOT) 17 U/L Alanine Aminotransferase (ALT/SGPT) 19 U/L Total Bilirubin 0.6 MG/DL Sodium Level 133 MEQ/L 133 MEQ/L Potassium Level 3.6 MEQ/L 4.6 MEQ/L Chloride Level 101 MEQ/L 104 MEQ/L Carbon Dioxide Level 20.9 MEQ/L 20.8 MEQ/L Anion Gap 11 MEQ/L 8 MEQ/L Estimat Glomerular Filtration Rate 55 ML/MIN 57 ML/MIN Microbiology Date/Time Source Procedure Growth Status 07/06/17 16:51 Blood Peripheral Aerobic Blood Culture - Preliminary NO GROWTH IN 1 DAY Resulted 07/06/17 16:51 Blood Peripheral Anaerobic Blood Culture - Preliminary NO GROWTH IN 1 DAY Resulted 07/06/17 16:40 Blood Peripheral Aerobic Blood Culture - Preliminary NO GROWTH IN 1 DAY Resulted 07/06/17 16:40 Blood Peripheral Anaerobic Blood Culture - Preliminary NO GROWTH IN 1 DAY Resulted Imaging Last Impressions Chest X-Ray 07/05/17 0000 Signed Impressions: Service Date/Time: Wednesday, July 05, 2017 15:40 - CONCLUSION: No acute disease. Noe Skinner MD Myocardial Perfusion Scan [facility] [place] Med 07/04/17 0800 Signed Impressions: Service Date/Time: Tuesday, July 04, 2017 14:17 - CONCLUSION: 1. Large fixed apical defect consistent with an area of infarction. There is no definite reversibility to suggest ischemia. 2. Markedly decreased calculated ejection fraction of 24%% with akinesis in the apex and global hypokinesis. RISK CATEGORY: High (>3%% Annual Mortality Rate) Noe Skinner MD Foot MRI 07/03/17 2014 Signed Impressions: Service Date/Time: Monday, July 03, 2017 08:58 - CONCLUSION: Extensive inflammatory changes beginning above the ankle extending through the hindfoot and forefoot as described above. Hugh Harris MD FACR Ankle MRI 07/03/17 0000 Signed Impressions: Service Date/Time: Monday, July 03, 2017 08:58 - CONCLUSION: The bulk of the inflammatory changes appear to be centered around the lateral malleolus and the joint. Septic arthritis is suspected. Osteomalacia of the distal fibula, distal tibia and talus are suspected. Septic joint is suspected. Wound communicates with the fibula with large fluid collection the flow tip of fibula. CT angiography would be of benefit to assess vascular in flow. Hugh Harris MD FACR Foot X-Ray 07/02/17 0000 Signed Impressions: Service Date/Time: June 19:12 - CONCLUSION: Possible lateral erosion of the fourth metatarsal head. Patient is scheduled for MRI. No other acute bony abnormalities are demonstrated. Patient is status post amputation of the fifth toe and resection of the fifth metatarsal. Drake Jarvis MD Physical Exam CONSTITUTIONAL/GENERAL: This is an adequately nourished patient, in no apparent distress. Appears sick TUBES/LINES/DRAINS: SKIN: No jaundice, rashes, or lesions. Skin temperature appropriate. Not diaphoretic. CARDIOVASCULAR: irregular rate and rhythm without murmurs, gallops, or rubs. Afinb on monitor No JVD. Peripheral pulses symmetric. RESPIRATORY/CHEST: Symmetric, unlabored respirations. Clear to auscultation. Breath sounds equal bilaterally. No wheezes, rales, or rhonchi. b/b diminished BS GASTROINTESTINAL: Abdomen soft, non-tender, nondistended. No hepato-splenomegaly , or palpable masses. No guarding. Bowel sounds present. GENITOURINARY: Without palpable bladder distension. MUSCULOSKELETAL: Extremities without clubbing, cyanosis, L foot with dressing in place wound with large amount of purulent drainage + erythema Massive tight 4+ edema BLE LYMPHATICS: No palpable cervical or supraclavicular adenopathy. NEUROLOGICAL: Awake and alert. Motor and sensory grossly within normal limits. Follows commands. Clear speech. Moves all extremities. PSYCHIATRIC: No obvious anxiety/depression. no apparent hallucinations or other psychotic thought process. Assessment & Plan Remarks Sepsis from infected L foot, MSSA L foot DFI and likely osteo given the chronicity of the problem - extemnsive osteo, septic ankele, unsalvagible limb, but pt refusing amputaiton - mixed aerobic/anaerobic, polimicrobial infx - agrre with ortho This is limb threatening, life threatening infeciton NSTEMI Sever CHF ARF Cough, can not exclude denise broncho pneumonaia, clx with nl resp raghu - probnably related to heart failure cont unasyn, awaiting pt's decision prognosis for limb salavage is extremely poor, pt is at high risk for sepsis and further infectious coplications e.i. endocarditis, vertebral osteo and other conservative mngmnt with abx alone and/or I+D is not going to be successfull dw pt; dw Dr Lemus, who recommended against Coty Baxter MD Jul 07, 2017 13:51
--- NOTE | 2017-07-07 13:53 | PD.POD ---
Subjective Pain score: 2 Remarks No new complaints patient still adamantly refusing left [id number] amputation Past Med/Surg/Social History Past Medical History HEENT: DENIES HX OF: Cataracts, Glaucoma, Recurrent ear infections, Recurrent sinusitis, Other HEENT history Endocrine: REPORTS HX OF: Diabetes mellitus, DENIES HX OF: Graves disease, Hyperthyroidism, Hypothyroidism, Other endocrine history Cardiovascular: REPORTS HX OF: Coronary artery disease, Hypertension Gastrointestinal: DENIES HX OF: Colitis, GERD, Irritable bowel syndrome, Liver disease, Pancreatitis, Peptic ulcer disease, Other GI history Genitourinary: DENIES HX OF: Chlamydia, Gonorrhea, Hemodialysis, Herpes genitalis, Human papillomavirus, Kidney disease, Kidney failure, Kidney stones, Past UTI, Peritoneal dialysis, Urinary incontinence, Other history Cancer/Hematology: DENIES HX OF: Anemia, Bladder Cancer, Blood cancer, Brain cancer, Breast cancer, Colorectal cancer, Endocrine cancer, Eye cancer, GI cancer, cancer, Kidney cancer, Leukemia, Liver cancer, Lung cancer, Lymphoma , Musculoskeletal cancer, Neurologic cancer, Oral cancer, Skin cancer, Stomach cancer, Thyroid cancer, Other cancer/hematology Cancer - male: DENIES HX OF: Prostate cancer, Testicular cancer Infectious disease: DENIES HX OF: AIDS, Chickenpox, Hepatitis, HIV, Measles, MRSA, Mumps, Polio, Positive PPD, Rheumatic fever, Rubella, Syphilis, Tuberculosis, Vanc-resistant enterococc, Other inf disease history Integumentary: DENIES HX OF: Acne, Eczema, Psoriasis, Other integumentary hx Neurologic: DENIES HX OF: ADHD, Autism, Dementia, Developmental delay, Headaches, Multiple sclerosis, Parkinson disease, Peripheral neuropathy, Restless leg syndrome, Seizures, Stroke, Transient ischemic attack, Other neurologic history Psychiatric: DENIES HX OF: Anorexia nervosa, Anxiety, Bipolar disorder, Bulimia , Depression, Schizophrenia, Other psychiatric history Genetic/metabolic: DENIES HX OF: Cystic fibrosis, Down syndrome, Other genetic history, Other metabolic history Events: DENIES HX OF: Anaphylaxis, Gunshot wound, Motor vehicle accident, Other events Disabilities: DENIES HX OF: Hearing deficit, Vision deficit, Hemiparesis, Paraplegia, Quadriplegia, Other disabilities Past Surgical History HEENT: REPORTS HX OF: Tonsillectomy, Other throat surgery (adenoids), DENIES HX OF: Cataract extraction, Dental surgery, Laryngectomy, Other head surgery, Other eye surgery, Other ear surgery, Other nasal surgery Endocrine: DENIES HX OF: Parathyroidectomy, Thyroid surgery, Other endocrine surgery Respiratory: DENIES HX OF: Bronchoscopy, Lobectomy, Other chest surgery Cardiovascular: DENIES HX OF: Angiogram, Angioplasty, CABG surgery, Carotid endarterectomy, Coronary stent, Heart transplant, Pacemaker, Valve replacement, Other cardiac surgery Gastrointestinal: REPORTS HX OF: Appendectomy, Hernia repair, DENIES HX OF: Cholecystectomy, Colectomy, subtotal, Colectomy, total, Gastric bypass, Splenectomy, Other GI surgery Genitourinary: DENIES HX OF: Bladder surgery, Kidney stone extraction, Nephrectomy, Other surgery Genitourinary - male: DENIES HX OF: Prostatectomy, TURP, Vasectomy Musculoskeletal: REPORTS HX OF: Other musculoskeletal srg (right foot 5th ray amputation, on the left fifth toe amputatation), DENIES HX OF: Joint replacement Integumentary: DENIES HX OF: Skin cancer removal, Other integumentary surg Neurologic: DENIES HX OF: Craniotomy, Spinal surgery, Other neurologic surgery Breast: DENIES HX OF: Breast biopsy, Lumpectomy, Mastectomy, bilateral, Mastectomy, left, Mastectomy, right, Other breast surgery Social History Smoking Status: Never Smoker Objective Vital Signs Vital Signs Date Time Temp Pulse Resp B/P (MAP) Pulse Ox O2 Delivery O2 Flow Rate FiO2 07/07/17 12:00 97 07/07/17 10:00 83 07/07/17 09:38 97 Nasal Cannula 4.00 07/07/17 08:00 97.7 90 15 122/67 (85) 99 07/07/17 08:00 90 07/07/17 06:00 91 07/07/17 04:00 98.6 94 20 102/67 (79) 96 07/07/17 04:00 94 07/07/17 02:00 105 07/07/17 02:00 102 07/07/17 00:00 105 07/07/17 00:00 98.2 105 16 146/83 (104) 96 07/06/17 22:00 101 07/06/17 20:24 93 Nasal Cannula 4.00 07/06/17 20:00 105 07/06/17 20:00 98.7 105 18 128/80 (96) 90 07/06/17 19:37 19 07/06/17 18:00 102 07/06/17 16:00 102 07/06/17 16:00 98.4 91 19 98/54 (69) 90 07/06/17 14:00 102 Coded Allergies: codeine (Unverified Allergy, Severe, Cardiac arrest, 03/04/17) *MDRO Multi-Drug Resistant Organism (Verified Adverse Reaction, Unknown, ) MRSA (blood)-07/23/16; (foot)-07/26/16 Uncoded Allergies: NOWAK (Adverse Reaction, Unknown, FLU LIKE SYMPTOMS, 11/25/16) NOWAK HAIR REMOVAL CREAM Medications and IVs Administered Medications Medications (Trade) Dose Ordered Sig/Tri Route PRN Reason Start Time Stop Time Status Last Admin Dose Admin Sodium Chloride (NS Flush) 2 ml BID IV FLUSH 07/02/17 09:00 07/06/17 19:36 Ondansetron HCl (Zofran Inj) 4 mg Q6H PRN IV PUSH NAUSEA OR VOMITING 07/02/17 01:30 07/06/17 19:37 Chlorhexidine Gluconate (Chlorhexidine 2% Cloth) Taper DAILY@04 TOP 07/02/17 04:00 06/28/18 03:59 07/05/17 04:00 Senna/Docusate Sodium (Emelia-Colace) 1 tab BID PO 07/02/17 09:00 07/05/17 08:51 Chlorhexidine Gluconate (Peridex 0.12% Liq) 15 ml BID@08,20 MT 07/02/17 08:00 07/05/17 08:00 Oxycodone HCl (Roxicodone) 10 mg Q6H PRN PO PAIN 1-10 07/02/17 04:15 07/07/17 00:31 Tamsulosin HCl (Flomax) 0.4 mg HS PO 07/02/17 21:00 07/06/17 19:36 Sodium Phosphate 30 mmol/Sodium Chloride 250 ml @ 42 mls/hr UNSCH PRN IV For Phosphorus < 2.5 mg/dL 07/02/17 16:30 07/02/17 18:34 Insulin Human NPH (NovoLIN N INJ) 25 units HS SQ 07/02/17 21:00 07/05/17 20:59 Insulin Aspart (NovoLOG SUPPLEMENTAL SCALE) 1 ACHS SLIDING SCALE SQ 07/02/17 21:00 07/07/17 12:33 Ampicillin Sodium/ Sulbactam Sodium 3 gm/Sodium Chloride 100 ml @ 200 mls/hr Q6H IV 07/04/17 12:00 07/07/17 12:37 Albuterol/ Ipratropium (Duoneb Neb) 1 ampule Q6HR NEB NEB 07/04/17 16:00 07/04/17 22:28 Pantoprazole Sodium (Protonix Inj) 40 mg Q12H IV PUSH 07/04/17 14:00 07/06/17 14:07 Vancomycin HCl 1750 mg/Sodium Chloride 517.5 ml @ 250 mls/hr Q24H IV 07/06/17 06:00 07/07/17 05:56 Heparin Sodium/ Dextrose 250 ml @ 10 mls/hr TITRATE PRN IV Coagulation Management 07/05/17 14:00 07/07/17 00:27 Diltiazem HCl (Cardizem) 60 mg QID PO 07/05/17 18:00 07/07/17 12:33 Metoprolol Tartrate (Lopressor) 12.5 mg Q12HR PO 07/06/17 21:00 07/07/17 08:26 Lisinopril (Prinivil) 2.5 mg DAILY PO 07/07/17 09:00 07/07/17 08:26 Other Results Laboratory Tests Test 07/05/17 15:23 07/05/17 20:45 07/06/17 06:30 07/07/17 09:03 White Blood Count 13.0 TH/MM3 10.3 TH/MM3 9.9 TH/MM3 Red Blood Count 3.87 MIL/MM3 3.28 MIL/MM3 3.44 MIL/MM3 Hemoglobin 9.2 GM/DL 8.9 GM/DL 8.3 GM/DL 8.6 GM/DL Hematocrit 29.4 % 24.4 % 25.8 % Mean Corpuscular Volume 75.9 FL 74.4 FL 74.8 FL Mean Corpuscular Hemoglobin 23.9 PG 25.2 PG 24.9 PG Mean Corpuscular Hemoglobin Concent 31.5 % 33.9 % 33.2 % Red Cell Distribution Width 21.9 % 22.0 % 22.3 % Platelet Count 518 TH/MM3 511 TH/MM3 507 TH/MM3 Mean Platelet Volume 7.4 FL 7.5 FL 7.2 FL Neutrophils (%) (Auto) 69.0 % 69.3 % Lymphocytes (%) (Auto) 17.0 % 17.0 % Monocytes (%) (Auto) 9.2 % 8.7 % Eosinophils (%) (Auto) 4.2 % 4.5 % Basophils (%) (Auto) 0.6 % 0.5 % Neutrophils # (Auto) 7.1 TH/MM3 6.9 TH/MM3 Lymphocytes # (Auto) 1.8 TH/MM3 1.7 TH/MM3 Monocytes # (Auto) 1.0 TH/MM3 0.9 TH/MM3 Eosinophils # (Auto) 0.4 TH/MM3 0.4 TH/MM3 Basophils # (Auto) 0.1 TH/MM3 0.0 TH/MM3 CBC Comment AUTO DIFF AUTO DIFF Differential Comment AUTO DIFF CONFIRMED AUTO DIFF CONFIRMED Platelet Estimate HIGH Platelet Morphology Comment NORMAL Laboratory Tests Test 07/05/17 15:23 07/05/17 20:45 07/06/17 06:30 07/07/17 09:03 Troponin I 2.53 NG/ML 2.60 NG/ML 2.72 NG/ML 2.82 NG/ML Blood Urea Nitrogen 30 MG/DL 27 MG/DL Creatinine 1.33 MG/DL 1.30 MG/DL Random Glucose 80 MG/DL 197 MG/DL Total Protein 6.5 GM/DL Albumin 1.6 GM/DL Calcium Level 8.2 MG/DL 7.9 MG/DL Phosphorus Level 2.8 MG/DL 3.0 MG/DL Magnesium Level 2.0 MG/DL 2.1 MG/DL Alkaline Phosphatase 307 U/L Aspartate Amino Transf (AST/SGOT) 17 U/L Alanine Aminotransferase (ALT/SGPT) 19 U/L Total Bilirubin 0.6 MG/DL Sodium Level 133 MEQ/L 133 MEQ/L Potassium Level 3.6 MEQ/L 4.6 MEQ/L Chloride Level 101 MEQ/L 104 MEQ/L Carbon Dioxide Level 20.9 MEQ/L 20.8 MEQ/L Anion Gap 11 MEQ/L 8 MEQ/L Estimat Glomerular Filtration Rate 55 ML/MIN 57 ML/MIN Microbiology Date/Time Source Procedure Growth Status 07/06/17 16:51 Blood Peripheral Aerobic Blood Culture - Preliminary NO GROWTH IN 1 DAY Resulted 07/06/17 16:51 Blood Peripheral Anaerobic Blood Culture - Preliminary NO GROWTH IN 1 DAY Resulted 07/06/17 16:40 Blood Peripheral Aerobic Blood Culture - Preliminary NO GROWTH IN 1 DAY Resulted 07/06/17 16:40 Blood Peripheral Anaerobic Blood Culture - Preliminary NO GROWTH IN 1 DAY Resulted Last 72 hours Impressions Chest X-Ray 07/05/17 0000 Signed Impressions: Service Date/Time: Wednesday, July 05, 2017 15:40 - CONCLUSION: No acute disease. Noe Skinner MD Physical Exam General appearance: comfortable Details Right lower extremity with cavovarus deformity ankle varus noted mild inflammatory findings but no obvious ulceration Left lower extremity granular fibrotic purulent and draining lateral ankle wound , cavovarus ankle deformity it appears rigid nonflexible limited ankle joint range of motion diffuse muscle atrophy noted, pulses decreased sensation not intact below ankle. Moderate edema and warmth of the ankle. No gas within the tissue, no soft tissue emphysema clinically no crepitus no odor. Appears to be unchanged from previous podiatry note- Dr Gonzales Assessment & Plan Diagnosis: (1) Osteomyelitis of ankle or foot, left, acute ICD Codes: M86.172 - Other acute osteomyelitis, left ankle and foot (2) Foot ulcer, left ICD Codes: L97.529 - Non-pressure chronic ulcer of other part of left foot with unspecified severity Status: Acute A/P I have reviewed previous Podiatry notes as well as ID, Vascular, and Ortho recommendations. I attempted to have a discussion with the patient regarding the severity of the infection. Patient keeps referring to "can't you just wash it out". I reviewed the MRI findings and explained involvement of ankle bone. Patient also has an angular deformity and a significant full-thickness wound with bone infection of ankle joint. Given the MRI findings I do not feel that a washout/debridement will benefit this patient in any way and the only option I can recommend is medical treatment versus below the knee amputation. I have no surgical recommendations. I informed the patient further progression of the infection may cause the need for above-knee amputation, and or severe sepsis leading to . Furthermore, I reviewed the patient's cardiac condition not as a treating doctor but letting him know that source control is very important in case cardiology or cardiac surgeons need to intervene. The patient told me I was fired and asked if there are any other Podiatrists. The wound is open and draining continue wound care per nursing. Since, I was fired as his doctor per the patient, please find a second opinion if patient desires podiatry consultation. Problem Qualifiers (1) Foot ulcer, left: Qualified Codes: L97.523 - Non-pressure chronic ulcer of other part of left foot with necrosis of muscle Joe Ann DPM Jul 07, 2017 13:53
--- NOTE | 2017-07-07 16:44 | HHI.GIFU ---
Subjective Remarks Pt resting in bed, sleeping. Per RN he has not had a BM today. He continues to refuse treatment, including Heparin gtt. No obvious blood in stool, has not vomited. (Andreina Buchanan) Objective Vitals I&O Vital Signs Date Time Temp Pulse Resp B/P (MAP) Pulse Ox O2 Delivery O2 Flow Rate FiO2 07/07/17 16:00 112 07/07/17 16:00 98.1 112 20 142/60 (87) 89 07/07/17 14:00 115 07/07/17 12:00 97.7 97 19 120/75 (90) 84 07/07/17 12:00 97 07/07/17 10:00 83 07/07/17 09:38 97 Nasal Cannula 4.00 07/07/17 08:00 97.7 90 15 122/67 (85) 99 07/07/17 08:00 90 07/07/17 06:00 91 07/07/17 04:00 98.6 94 20 102/67 (79) 96 07/07/17 04:00 94 07/07/17 02:00 105 07/07/17 02:00 102 07/07/17 00:00 105 07/07/17 00:00 98.2 105 16 146/83 (104) 96 07/06/17 22:00 101 07/06/17 20:24 93 Nasal Cannula 4.00 07/06/17 20:00 105 07/06/17 20:00 98.7 105 18 128/80 (96) 90 07/06/17 19:37 19 07/06/17 18:00 102 I/O 07/06/17 07/06/17 07/06/17 07/07/17 07/07/17 07/07/17 07:00 15:00 23:00 07:00 15:00 23:00 Intake Total 830 ml 100 ml Output Total 775 ml 800 ml 850 ml Balance -775 ml 30 ml 100 ml -850 ml Intake Oral 480 ml IV Total 350 ml 100 ml Output Urine Total 775 ml 800 ml 850 ml # Bowel Movements 1 1 Laboratory Laboratory Tests Test 07/06/17 21:14 07/07/17 09:03 Activated Partial Thromboplast Time 29.6 33.2 White Blood Count 9.9 Red Blood Count 3.44 Hemoglobin 8.6 Hematocrit 25.8 Mean Corpuscular Volume 74.8 Mean Corpuscular Hemoglobin 24.9 Mean Corpuscular Hemoglobin Concent 33.2 Red Cell Distribution Width 22.3 Platelet Count 507 Mean Platelet Volume 7.2 Neutrophils (%) (Auto) 69.3 Lymphocytes (%) (Auto) 17.0 Monocytes (%) (Auto) 8.7 Eosinophils (%) (Auto) 4.5 Basophils (%) (Auto) 0.5 Neutrophils # (Auto) 6.9 Lymphocytes # (Auto) 1.7 Monocytes # (Auto) 0.9 Eosinophils # (Auto) 0.4 Basophils # (Auto) 0.0 CBC Comment AUTO DIFF Differential Comment AUTO DIFF CONFIRMED Platelet Estimate HIGH Platelet Morphology Comment NORMAL Blood Urea Nitrogen 27 Creatinine 1.30 Random Glucose 197 Calcium Level 7.9 Phosphorus Level 3.0 Magnesium Level 2.1 Sodium Level 133 Potassium Level 4.6 Chloride Level 104 Carbon Dioxide Level 20.8 Anion Gap 8 Estimat Glomerular Filtration Rate 57 Troponin I 2.82 Date/Time Source Procedure Growth Status 07/06/17 16:51 Blood Peripheral Aerobic Blood Culture - Preliminary NO GROWTH IN 1 DAY Resulted 07/06/17 16:51 Blood Peripheral Anaerobic Blood Culture - Preliminary NO GROWTH IN 1 DAY Resulted 07/02/17 01:50 Sputum Endotracheal Gram Stain - Final Complete 07/02/17 01:50 Sputum Endotracheal Sputum Culture - Final HEAVY GROWTH NORMAL RESPIRATORY DEE Complete 07/02/17 02:35 Urine Catheterized Urine Urine Culture - Final 50-100,000 CFU/ML MIXED DEE... Complete 07/02/17 04:50 Wound Foot Gram Stain - Final Complete 07/02/17 04:50 Wound Culture - Final Acinetobacter Baumannii/Haemol Staphylococcus Aureus Group B Beta Strep Complete Imaging Last Impressions Chest X-Ray 07/05/17 0000 Signed Impressions: Service Date/Time: Wednesday, July 05, 2017 15:40 - CONCLUSION: No acute disease. Noe Skinner MD Myocardial Perfusion Scan Nuc Med 07/04/17 0800 Signed Impressions: Service Date/Time: Tuesday, July 04, 2017 14:17 - CONCLUSION: 1. Large fixed apical defect consistent with an area of infarction. There is no definite reversibility to suggest ischemia. 2. Markedly decreased calculated ejection fraction of 24%% with akinesis in the apex and global hypokinesis. RISK CATEGORY: High (>3%% Annual Mortality Rate) Noe Skinner MD Foot MRI 07/03/172013 Signed Impressions: Service Date/Time: Monday, July 03, 2017 08:58 - CONCLUSION: Extensive inflammatory changes beginning above the ankle extending through the hindfoot and forefoot as described above. Hugh Harris MD FACR Ankle MRI 07/03/17 0000 Signed Impressions: Service Date/Time: Monday, July 03, 2017 08:58 - CONCLUSION: The bulk of the inflammatory changes appear to be centered around the lateral malleolus and the joint. Septic arthritis is suspected. Osteomalacia of the distal fibula, distal tibia and talus are suspected. Septic joint is suspected. Wound communicates with the fibula with large fluid collection the flow tip of fibula. CT angiography would be of benefit to assess vascular in flow. Hugh Harris MD FACR Foot X-Ray 07/02/17 0000 Signed Impressions: Service Date/Time: June 19:12 - CONCLUSION: Possible lateral erosion of the fourth metatarsal head. Patient is scheduled for MRI. No other acute bony abnormalities are demonstrated. Patient is status post amputation of the fifth toe and resection of the fifth metatarsal. Drake Jarvis MD Physical Exam HEENT: Normocephalic; atraumatic CHEST: Even/unlabored CARDIAC: Irregular ABDOMEN: Distended, semi-firm, nontender, bowel sounds active EXTREMITIES: BLE edema SKIN: Bilateral pedal wounds PERFORMANCE TESTER: No focal deficits; alert and oriented times three. (Andreina Buchanan) Assessment and Plan Assessment: (1) Tachycardia ICD Codes: R00.0 - Tachycardia, unspecified (2) Anemia ICD Codes: D64.9 - Anemia, unspecified (3) Upper GI bleed ICD Codes: K92.2 - Gastrointestinal hemorrhage, unspecified (4) DM (diabetes mellitus) ICD Codes: E11.9 - Type 2 diabetes mellitus without complications Status: Chronic Plan Assessment: - Anemia- Microcytic, hypochromic. H/H currently 8.2/25.4 S/P 3 U PRBCs, last one transfused yesterday. Pt does report vomiting last week and reports hematemesis on . Currently no N/V. Would recommend EGD when pt more stable. Will add Protonix. HR remains irregular with RVR, pt on Cardizem gtt. Pt advised to have BKA for osteomyelitis with poor chance for limb salvage. Vascular surgery and orthopedics following. (07/07)- Pt has had elevated Troponins. Placed on Heparin gtt for NSTEMI, however he is refusing the Heparin gtt. Diabetic foot ulcer, ID following, pt has been advised by multiple doctors that amputation is the best option, pt refusing amputation and would like a different national opelint analyst. Per RN pt has not had a BM today, no obvious GIB. H/H remains low but stable, currently 8.6/25.8- has not received PRBCs since Jul 03. Pt still not stable enough for EGD at this time. Will continue PPI and to monitor. Plan: - Protonix - EGD when clinically stable - Monitor H/H - Transfuse as needed - Supportive care This pt has been seen and examined by myself and Dr. Jennings and this note is written on his behalf (Andreina Buchanan) Physician Comments Patient seen and examined Agree with above Continue with current supportive care Monitor labs (Sheng Jennings MD) Andreina Buchanan Jul 07, 2017 16:44 Sheng Jennings MD Jul 07, 2017 22:16
--- NOTE | 2017-07-07 16:52 | PD.CAR.PN ---
CVT Progress Note Subjective/Hospital Course: Consult received Full dictation to follow 07/04/17 Today on my arrival to ICU patient had just left for the stress test site could not examine him and talked to the patient Will talk to the patient tomorrow and make vascular recommendations Thanks J 07/05/17 I finally had a chance to have a long talk with the patient and examine him carefully Full consult has been dictated but in brief the following other recommendations Patient is very sick individual with ejection fraction of 30% and a fixed defect consistent with ischemic area of the ventricle so surgery should be minimized as far as number of procedures is concerned I fully agree with Dr. Love, the patient should have left below-knee amputation as one procedure and this should heal nicely Doing repeated procedures under general or any other anesthesia expose this patient to repeated risks of cardiac complications As far as the right foot is concerned he has a full equino-varus deformity. According to patient some weaver hand loom on outside wants to do some surgery and straightening of this ankle. The whole thing sounds quite insane and should clearly not be attempted in this gentleman because is going end up with a festering wound and lose the other leg as well, probably faster than the first one. Once the patient agrees to have below-knee amputation I be happy to go ahead with it 07/06/17 As above noted patient is in complete denial about condition of both feet Will go for debridement with orthopedics Eventually patient will need amputation of the left leg. His cardiac function obviously is precarious and makes him a high risk candidate for surgery but without it, eventually he'll developed sepsis and As far as the right foot is concerned, correcting equinovarus with surgery in this diabetic patient is wishful thinking. Patient will end up with a massive nonhealing wound and gangrene 07/07/17 Spoke to patient today at length Apparently was very upset and was under impression there is no communication between the physicians. I assured him that were all talking to each other and are very much in concert on what is being done Patient fired few physicians in the meantime. Patient can have debridement of the foot as a temporizing measure but in order to have some long-term recovery patient will need invariably a left below-knee amputation He refuses amputation adamantly. At this point I will sign off and if patient changes his mind I will be available Objective: Vital Signs Date Time Temp Pulse Resp B/P (MAP) Pulse Ox O2 Delivery O2 Flow Rate FiO2 07/07/17 16:00 112 07/07/17 16:00 98.1 112 20 142/60 (87) 89 07/07/17 14:00 115 07/07/17 12:00 97.7 97 19 120/75 (90) 84 07/07/17 12:00 97 07/07/17 10:00 83 07/07/17 09:38 97 Nasal Cannula 4.00 07/07/17 08:00 97.7 90 15 122/67 (85) 99 07/07/17 08:00 90 07/07/17 06:00 91 07/07/17 04:00 98.6 94 20 102/67 (79) 96 07/07/17 04:00 94 07/07/17 02:00 105 07/07/17 02:00 102 07/07/17 00:00 105 07/07/17 00:00 98.2 105 16 146/83 (104) 96 07/06/17 22:00 101 07/06/17 20:24 93 Nasal Cannula 4.00 07/06/17 20:00 105 07/06/17 20:00 98.7 105 18 128/80 (96) 90 07/06/17 19:37 19 07/06/17 18:00 102 Labs: Laboratory Tests Test 07/07/17 09:03 White Blood Count 9.9 TH/MM3 (4.0-11.0) Red Blood Count 3.44 MIL/MM3 (4.50-5.90) Hemoglobin 8.6 GM/DL (13.0-17.0) Hematocrit 25.8 % (39.0-51.0) Mean Corpuscular Volume 74.8 FL (80.0-100.0) Mean Corpuscular Hemoglobin 24.9 PG (27.0-34.0) Mean Corpuscular Hemoglobin Concent 33.2 % (32.0-36.0) Red Cell Distribution Width 22.3 % (11.6-17.2) Platelet Count 507 TH/MM3 (150-450) Mean Platelet Volume 7.2 FL (7.0-11.0) Neutrophils (%) (Auto) 69.3 % (16.0-70.0) Lymphocytes (%) (Auto) 17.0 % (9.0-44.0) Monocytes (%) (Auto) 8.7 % (0.0-8.0) Eosinophils (%) (Auto) 4.5 % (0.0-4.0) Basophils (%) (Auto) 0.5 % (0.0-2.0) Neutrophils # (Auto) 6.9 TH/MM3 (1.8-7.7) Lymphocytes # (Auto) 1.7 TH/MM3 (1.0-4.8) Monocytes # (Auto) 0.9 TH/MM3 (0-0.9) Eosinophils # (Auto) 0.4 TH/MM3 (0-0.4) Basophils # (Auto) 0.0 TH/MM3 (0-0.2) CBC Comment AUTO DIFF Differential Comment AUTO DIFF CONFIRMED Platelet Estimate HIGH (NORMAL) Platelet Morphology Comment NORMAL (NORMAL) Activated Partial Thromboplast Time 33.2 SEC (24.3-30.1) Blood Urea Nitrogen 27 MG/DL (7-18) Creatinine 1.30 MG/DL (0.60-1.30) Random Glucose 197 MG/DL (74-106) Calcium Level 7.9 MG/DL (8.5-10.1) Phosphorus Level 3.0 MG/DL (2.5-4.9) Magnesium Level 2.1 MG/DL (1.5-2.5) Sodium Level 133 MEQ/L (136-145) Potassium Level 4.6 MEQ/L (3.5-5.1) Chloride Level 104 MEQ/L (98-107) Carbon Dioxide Level 20.8 MEQ/L (21.0-32.0) Anion Gap 8 MEQ/L (5-15) Estimat Glomerular Filtration Rate 57 ML/MIN (>89) Troponin I 2.82 NG/ML (0.02-0.05) Result Diagram: 07/07/17 0903 07/07/17 09 (1) Angina pectoris (2) Elevated troponin (3) Uncontrolled type 2 DM with hyperosmolar nonketotic hyperglycemia (4) CHF (congestive heart failure) (5) CAD (coronary artery disease) (6) Ischemic cardiomyopathy Larisa Hernández MD Jul 07, 2017 16:52
--- NOTE | 2017-07-07 17:11 | PD.CARD.PN ---
Subjective Subjective Remarks No angina, no SOB, nuclear stress test shows a large apical fixed defect c/w old MT, EF 24%, and no evidence of ischemia, refusing amputation and wishing debridement only; also refusing heparin Objective Medications Current Medications Medications (Trade) Dose Ordered Sig/Tri Route Start Time Stop Time Status Last Admin (Sodium Bicarbonate 8.4% Inj) 100 meq UNSCH PRN IV PUSH 07/02/17 00:30 (Sodium Bicarbonate 8.4% Inj) 50 meq UNSCH PRN IV PUSH 07/02/17 00:30 (NS Flush) 2 ml UNSCH PRN IV FLUSH 07/02/17 01:30 (NS Flush) 2 ml BID IV FLUSH 07/02/17 09:00 07/06/17 19:36 (Tylenol) 650 mg Q6H PRN PO 07/02/17 01:30 (Morphine Inj) 2 mg Q2H PRN IV PUSH 07/02/17 01:30 (Versed Inj) 2 mg Q1H PRN IV PUSH 07/02/17 01:30 (Zofran Inj) 4 mg Q6H PRN IV PUSH 07/02/17 01:30 07/06/17 19:37 (Heparin Inj) 5,000 units Q8HR SQ 07/02/17 06:00 Future Hold Miscellaneous Information 1 Q361D XX 07/02/17 01:30 (Chlorhexidine 2% Cloth) Taper DAILY@04 TOP 07/02/17 04:00 06/28/18 03:59 07/05/17 04:00 (Chlorhexidine 2% Cloth) 3 pack UNSCH PRN TOP 07/02/17 01:30 (Emelia-Colace) 1 tab BID PO 07/02/17 09:00 07/05/17 08:51 (Senokot) 17.2 mg Q12H PRN PO 07/02/17 01:30 (Dulcolax Supp) 10 mg DAILY PRN RECTAL 07/02/17 01:30 (Lactulose Liq) 30 ml DAILY PRN PO 07/02/17 01:30 (Peridex 0.12% Liq) 15 ml BID@08,20 MT 07/02/17 08:00 07/05/17 08:00 (Lotrimin 1% Cream) 1 applic DAILY TOPICAL 07/02/17 09:00 (Roxicodone) 10 mg Q6H PRN PO 07/02/17 04:15 07/07/17 00:31 (Flomax) 0.4 mg HS PO 07/02/17 21:00 07/06/17 19:36 Pharmacy Profile Note 0 ml @ 0 mls/hr UNSCH OTHER 07/02/17 10:45 Potassium Chloride 100 ml @ 50 mls/hr Q2H PRN IV 07/02/17 16:30 (K-Lyte Cl Eff) 50 meq UNSCH PRN PO 07/02/17 16:30 Potassium Chloride 100 ml @ 25 mls/hr UNSCH PRN IV 07/02/17 16:30 Potassium Chloride 100 ml @ 50 mls/hr Q2H PRN IV 07/02/17 16:30 Magnesium Sulfate 4 gm/Sodium Chloride 100 ml @ 50 mls/hr UNSCH PRN IV 07/02/17 16:30 (Mag-Ox) 800 mg UNSCH PRN PO 07/02/17 16:30 Magnesium Sulfate 2 gm/Sodium Chloride 100 ml @ 50 mls/hr UNSCH PRN IV 07/02/17 16:30 (K-Phos) 2,000 mg Q4H PRN PO 07/02/17 16:30 Sodium Phosphate 30 mmol/Sodium Chloride 250 ml @ 42 mls/hr UNSCH PRN IV 07/02/17 16:30 07/02/17 18:34 (K-Phos) 2,000 mg UNSCH PRN PO/TUBE 07/02/17 16:30 Potassium Phosphate 30 mmol/ Sodium Chloride 260 ml @ 42 mls/hr UNSCH PRN IV 07/02/17 16:30 Potassium Chloride 100 ml @ 25 mls/hr Q4H PRN IV 07/02/17 16:45 (NovoLIN N INJ) 25 units HS SQ 07/02/17 21:00 07/05/17 20:59 (NovoLIN N INJ) 35 units DAILY SQ 07/03/17 09:00 (D50w (Vial) Inj) 50 ml UNSCH PRN IV PUSH 07/02/17 20:30 (Glucagon Inj) 1 mg UNSCH PRN OTHER 07/02/17 20:30 (NovoLOG SUPPLEMENTAL SCALE) 1 ACHS SLIDING SCALE SQ 07/02/17 21:00 07/07/17 12:33 Ampicillin Sodium/ Sulbactam Sodium 3 gm/Sodium Chloride 100 ml @ 200 mls/hr Q6H IV 07/04/17 12:00 07/07/17 12:37 (Duoneb Neb) 1 ampule Q6HR NEB NEB 07/04/17 16:00 07/04/17 22:28 (Albuterol Neb) 2.5 mg Q2HR NEB PRN NEB 07/04/17 11:45 (Protonix Inj) 40 mg Q12H IV PUSH 07/04/17 14:00 07/07/17 14:59 Lactated Ringer's 1,000 ml @ 30 mls/hr Q24H PRN IV 07/05/17 22:45 07/08/17 22:44 Sodium Chloride 500 ml @ 30 mls/hr [id number] PRN IV 07/05/17 22:45 07/08/17 22:44 (Betadine 5% Antisepsis Kit) 1 applic AUTOMATIC NAILING MACHINE OPERATOR PRN EACH NARE 07/05/17 22:45 07/08/17 22:44 (Chlorhexidine 2% Cloth) 3 pack AUTOMATIC NAILING MACHINE OPERATOR PRN TOPICAL 07/05/17 22:45 07/08/17 22:44 Vancomycin HCl 1750 mg/Sodium Chloride 517.5 ml @ 250 mls/hr Q24H IV 07/06/17 06:00 07/07/17 05:56 Miscellaneous Information SPECIFIC LAB TO BE AMIRAH... ONCE ONCE .XX 07/08/17 05:45 07/08/17 05:46 Heparin Sodium/ Dextrose 250 ml @ 10 mls/hr TITRATE PRN IV 07/05/17 14:00 07/07/17 00:27 (Nitrostat Sl) 0.3 mg Q5M PRN SL 07/05/17 14:30 (Cardizem) 60 mg QID PO 07/05/17 18:00 07/07/17 12:33 (Lopressor) 12.5 mg Q12HR PO 07/06/17 21:00 07/07/17 08:26 (Prinivil) 2.5 mg DAILY PO 07/07/17 09:00 07/07/17 08:26 Vital Signs / I&O Vital Signs Date Time Temp Pulse Resp B/P (MAP) Pulse Ox O2 Delivery O2 Flow Rate FiO2 07/07/17 16:00 112 07/07/17 16:00 98.1 112 20 142/60 (87) 89 07/07/17 14:00 115 07/07/17 12:00 97.7 97 19 120/75 (90) 84 07/07/17 12:00 97 07/07/17 10:00 83 07/07/17 09:38 97 Nasal Cannula 4.00 07/07/17 08:00 97.7 90 15 122/67 (85) 99 07/07/17 08:00 90 07/07/17 06:00 91 07/07/17 04:00 98.6 94 20 102/67 (79) 96 07/07/17 04:00 94 07/07/17 02:00 105 07/07/17 02:00 102 07/07/17 00:00 105 07/07/17 00:00 98.2 105 16 146/83 (104) 96 07/06/17 22:00 101 07/06/17 20:24 93 Nasal Cannula 4.00 07/06/17 20:00 105 07/06/17 20:00 98.7 105 18 128/80 (96) 90 07/06/17 19:37 19 07/06/17 18:00 102 I/O 07/06/17 07/06/17 07/06/17 07/07/17 07/07/17 07/07/17 07:00 15:00 23:00 07:00 15:00 23:00 Intake Total 830 ml 100 ml 100 ml Output Total 775 ml 800 ml 850 ml Balance -775 ml 30 ml 100 ml -750 ml Intake Oral 480 ml IV Total 350 ml 100 ml 100 ml Output Urine Total 775 ml 800 ml 850 ml # Bowel Movements 1 1 Physical Exam GENERAL: In NAD SKIN: Warm and dry. HEAD: Normocephalic. EYES: No scleral icterus. No injection or drainage. NECK: Supple, trachea midline. No JVD or lymphadenopathy. CARDIOVASCULAR: Irregular rate and rhythm, tachy, without murmurs, gallops, or rubs. RESPIRATORY: Breath sounds equal bilaterally. No accessory muscle use. GASTROINTESTINAL: Abdomen soft, non-tender, nondistended. MUSCULOSKELETAL: No cyanosis, LE edema and deformities. Laboratory Laboratory Tests Test 07/06/17 21:14 1/16/18 09:03 Activated Partial Thromboplast Time 29.6 SEC 33.2 SEC White Blood Count 9.9 TH/MM3 Red Blood Count 3.44 MIL/MM3 Hemoglobin 8.6 GM/DL Hematocrit 25.8 % Mean Corpuscular Volume 74.8 FL Mean Corpuscular Hemoglobin 24.9 PG Mean Corpuscular Hemoglobin Concent 33.2 % Red Cell Distribution Width 22.3 % Platelet Count 507 TH/MM3 Mean Platelet Volume 7.2 FL Neutrophils (%) (Auto) 69.3 % Lymphocytes (%) (Auto) 17.0 % Monocytes (%) (Auto) 8.7 % Eosinophils (%) (Auto) 4.5 % Basophils (%) (Auto) 0.5 % Neutrophils # (Auto) 6.9 TH/MM3 Lymphocytes # (Auto) 1.7 TH/MM3 Monocytes # (Auto) 0.9 TH/MM3 Eosinophils # (Auto) 0.4 TH/MM3 Basophils # (Auto) 0.0 TH/MM3 CBC Comment AUTO DIFF Differential Comment AUTO DIFF CONFIRMED Platelet Estimate HIGH Platelet Morphology Comment NORMAL Blood Urea Nitrogen 27 MG/DL Creatinine 1.30 MG/DL Random Glucose 197 MG/DL Calcium Level 7.9 MG/DL Phosphorus Level 3.0 MG/DL Magnesium Level 2.1 MG/DL Sodium Level 133 MEQ/L Potassium Level 4.6 MEQ/L Chloride Level 104 MEQ/L Carbon Dioxide Level 20.8 MEQ/L Anion Gap 8 MEQ/L Estimat Glomerular Filtration Rate 57 ML/MIN Troponin I 2.82 NG/ML Assessment and Plan Problem List: (1) Angina pectoris ICD Codes: I20.9 - Angina pectoris, unspecified (2) Elevated troponin ICD Codes: R74.8 - Abnormal levels of other serum enzymes (3) Uncontrolled type 2 DM with hyperosmolar nonketotic hyperglycemia ICD Codes: E11.00 - Type 2 diabetes mellitus with hyperosmolarity without nonketotic hyperglycemic-hyperosmolar coma ([facility]) (4) CHF (congestive heart failure) ICD Codes: I50.9 - Heart failure, unspecified (5) CAD (coronary artery disease) ICD Codes: I25.10 - Atherosclerotic heart disease of [place] coronary artery without angina pectoris (6) Ischemic cardiomyopathy ICD Codes: I25.5 - Ischemic cardiomyopathy Assessment and Plan Still very difficult and adversarial towards multiple physicians. Nuclear stress test c/w severe ischemic cardiomyopathy due to a large apical infarct, but no evidence of ischemia. Cardiac risk of anesthesia is increased but not prohibitive. Recommend to proceed with surgery if necessary. Continue and titrate tx for CHF. Continue rate control of a fib. Continue abxs as per ID. Continue ICU care. Tika Tucker MD Jul 07, 2017 17:11
[2017-07-07] MEDS: TAMSULOSIN HCL 0.4 MG CAP PO SCH (21:15)
[2017-07-08] VITALS (13 sets, daily range): BP systolic 112–147; BP diastolic 55–83; PULSE 69–101; RESP 16–32; TEMP 97.9–99.5; O2SAT 84–98
[2017-07-08] MEDS: PANTOPRAZOLE SODIUM 40 MG VIAL IV PUSH SCH ×2 (00:08→14:00)
[2017-07-08] MEDS: CHLORHEXIDINE GLUCONATE 2 % 1 PACK (2 CLOTHS) TOP SCH (04:00)
[2017-07-08] MEDS: RESP: ALBUTEROL 2.5 MG/IPRATROPIUM 0.5 MG NEB (SCH) NEB ×2 (04:00→07:46)
[2017-07-08] MEDS ORDERED: PHARMACY ORDERED LAB ONE (05:45)
[2017-07-08] MEDS: AMPICILLIN-SULBACTAM INJ 3 GM in SODIUM CHLORIDE 0.9% INJ 100 ML IV SCH ×5 (06:00→18:00)
[2017-07-08] MEDS: INSULIN ASPART SUPPLEMENTAL SCALE SQ SCH ×4 (08:00→21:00)
[2017-07-08] MEDS: CHLORHEXIDINE 0.12% (ORAL KIT) 15 ML CUP MT SCH ×2 (08:00→20:00)
[2017-07-08 08:44] LABS: AUTOMATED NEUTROPHIL # 6.2 TH/MM3 (1.8-7.7); BASOPHIL # 0.1 TH/MM3 (0-0.2); BASOPHIL % 0.6 % (0.0-2.0); EOSINOPHIL # 0.3 TH/MM3 (0-0.4); HEMATOCRIT 26.8 % (39.0-51.0); HEMOGLOBIN 8.6 GM/DL (13.0-17.0); LYMPH % 15.1 % (9.0-44.0); LYMPHOCYTE # 1.3 TH/MM3 (1.0-4.8); MEAN CELL VOLUME 74.8 FL (80.0-100.0); MEAN CORPUSCULAR HEMOGLOBIN 23.9 PG (27.0-34.0); MEAN CORPUSCULAR HGB CONC 31.9 % (32.0-36.0); MEAN PLATELET VOLUME 7.1 FL (7.0-11.0); MONO % 8.4 % (0.0-8.0); MONOCYTE # 0.7 TH/MM3 (0-0.9); NEUT % 71.9 % (16.0-70.0); PLATELET COUNT 463 TH/MM3 (150-450); RED BLOOD COUNT 3.59 MIL/MM3 (4.50-5.90); RED CELL DISTRIBUTION WIDTH 21.7 % (11.6-17.2); WHITE BLOOD COUNT 8.7 TH/MM3 (4.0-11.0)
[2017-07-08] MEDS: LISINOPRIL 5 MG TAB PO SCH (08:58)
[2017-07-08] MEDS: DOCUSATE SODIUM 50 MG/SENNA 8.6 MG TAB PO SCH ×2 (08:58→21:00)
[2017-07-08] MEDS: DILTIAZEM HCL 60 MG TAB PO SCH ×4 (08:58→21:01)
[2017-07-08] MEDS: METOPROLOL TARTRATE 25 MG TAB PO SCH ×2 (08:58→21:03)
[2017-07-08] MEDS: CLOTRIMAZOLE 1% CREAM 15 GM TOPICAL SCH (08:58)
[2017-07-08] MEDS: INSULIN HUMAN NPH 1,000 UNITS/10 ML VIAL SQ SCH ×2 (08:59→21:00)
[2017-07-08] MEDS: SODIUM CHLORIDE 0.9% FLUSH 10 ML FLUSH IV FLUSH SCH ×2 (09:00→21:03)
[2017-07-08 09:11] LABS: BICARBONATE 23.5 MEQ/L (21.0-32.0); CALCIUM 7.8 MG/DL (8.5-10.1); CREATININE 1.25 MG/DL (0.60-1.30)
[2017-07-08 09:17] LABS: VANCOMYCIN TROUGH 15.7 MCG/ML (5.0-10.0)
[2017-07-08] MEDS: VANCOMYCIN INJ 1,750 MG in SODIUM CHLORID 0.9% 500 ML INJ 500 ML IV SCH (09:50)
--- NOTE | 2017-07-08 16:24 | HHI.GIFU ---
Subjective Remarks pt resting in bed in NAD. c/o abd and flank discomfort and abd distention, says his abd is getting bigger and his testicles are swollen. Denies blood in stool. Having formed BMs every other day. Says he needs 6 weeks and then he would agree to the amputation. (Luisa Olvera) Objective Vitals I&O Vital Signs Date Time Temp Pulse Resp B/P (MAP) Pulse Ox O2 Delivery O2 Flow Rate FiO2 07/08/17 14:00 98 07/08/17 12:00 88 07/08/17 12:00 97.9 88 21 112/55 (74) 88 07/08/17 10:00 82 07/08/17 08:00 87 07/08/17 08:00 98.4 87 25 119/66 (83) 96 07/08/17 07:46 96 Nasal Cannula 4.00 07/08/17 06:00 80 07/08/17 04:00 99.2 82 28 118/64 (82) 98 07/08/17 04:00 80 07/08/17 02:00 86 07/08/17 00:00 99.5 97 28 136/72 (93) 94 07/08/17 00:00 97 07/07/17 22:00 93 07/07/17 21:10 95 Nasal Cannula 4.00 07/07/17 20:00 99.5 86 19 114/64 (81) 94 07/07/17 20:00 86 07/07/17 18:00 104 I/O 07/07/17 07/07/17 07/07/17 07/08/17 07/08/17 07/08/17 07:00 15:00 23:00 07:00 15:00 23:00 Intake Total 100 ml 100 ml 520 ml 480 ml Output Total 850 ml 250 ml 1200 ml Balance 100 ml -750 ml 270 ml -720 ml Intake Oral 420 ml 480 ml IV Total 100 ml 100 ml 100 ml Output Urine Total 850 ml 250 ml 1200 ml # Bowel Movements 1 0 0 Laboratory Laboratory Tests Test 07/08/17 07:25 White Blood Count 8.7 Red Blood Count 3.59 Hemoglobin 8.6 Hematocrit 26.8 Mean Corpuscular Volume 74.8 Mean Corpuscular Hemoglobin 23.9 Mean Corpuscular Hemoglobin Concent 31.9 Red Cell Distribution Width 21.7 Platelet Count 463 Mean Platelet Volume 7.1 Neutrophils (%) (Auto) 71.9 Lymphocytes (%) (Auto) 15.1 Monocytes (%) (Auto) 8.4 Eosinophils (%) (Auto) 4.0 Basophils (%) (Auto) 0.6 Neutrophils # (Auto) 6.2 Lymphocytes # (Auto) 1.3 Monocytes # (Auto) 0.7 Eosinophils # (Auto) 0.3 Basophils # (Auto) 0.1 CBC Comment DIFF FINAL Differential Comment Blood Urea Nitrogen 26 Creatinine 1.25 Random Glucose 77 Calcium Level 7.8 Sodium Level 136 Potassium Level 4.5 Chloride Level 105 Carbon Dioxide Level 23.5 Anion Gap 8 Estimat Glomerular Filtration Rate 59 Vancomycin Level Trough 15.7 Date/Time Source Procedure Growth Status 07/06/17 16:51 Blood Peripheral Aerobic Blood Culture - Preliminary NO GROWTH IN 2 DAYS Resulted 07/06/17 16:51 Blood Peripheral Anaerobic Blood Culture - Preliminary NO GROWTH IN 2 DAYS Resulted 07/02/17 01:50 Sputum Endotracheal Gram Stain - Final Complete 07/02/17 01:50 Sputum Endotracheal Sputum Culture - Final HEAVY GROWTH NORMAL RESPIRATORY DEE Complete 07/02/17 02:35 Urine Catheterized Urine Urine Culture - Final 50-100,000 CFU/ML MIXED DEE... Complete 07/02/17 04:50 Wound Foot Gram Stain - Final Complete 07/02/17 04:50 Wound Culture - Final Acinetobacter Baumannii/Haemol Staphylococcus Aureus Group B Beta Strep Complete Imaging Last Impressions Chest X-Ray 07/05/17 0000 Signed Impressions: Service Date/Time: Wednesday, July 05, 2017 15:40 - CONCLUSION: No acute disease. Noe Skinner MD Myocardial Perfusion Scan Nuc Med 07/04/17 0800 Signed Impressions: Service Date/Time: Tuesday, July 04, 2017 14:17 - CONCLUSION: 1. Large fixed apical defect consistent with an area of infarction. There is no definite reversibility to suggest ischemia. 2. Markedly decreased calculated ejection fraction of 24%% with akinesis in the apex and global hypokinesis. RISK CATEGORY: High (>3%% Annual Mortality Rate) Noe Skinner MD Foot MRI 07/03/172013 Signed Impressions: Service Date/Time: Monday, July 03, 2017 08:58 - CONCLUSION: Extensive inflammatory changes beginning above the ankle extending through the hindfoot and forefoot as described above. Hugh Harris MD FACR Ankle MRI 07/03/17 0000 Signed Impressions: Service Date/Time: Monday, July 03, 2017 08:58 - CONCLUSION: The bulk of the inflammatory changes appear to be centered around the lateral malleolus and the joint. Septic arthritis is suspected. Osteomalacia of the distal fibula, distal tibia and talus are suspected. Septic joint is suspected. Wound communicates with the fibula with large fluid collection the flow tip of fibula. CT angiography would be of benefit to assess vascular in flow. Hugh Harris MD FACR Foot X-Ray 07/02/17 0000 Signed Impressions: Service Date/Time: June 19:12 - CONCLUSION: Possible lateral erosion of the fourth metatarsal head. Patient is scheduled for MRI. No other acute bony abnormalities are demonstrated. Patient is status post amputation of the fifth toe and resection of the fifth metatarsal. Drake Jarvis MD Physical Exam HEENT: Normocephalic; atraumatic CHEST: Even/unlabored CARDIAC: Irregular ABDOMEN: Distended, semi-firm,diffusely TTP, bowel sounds active EXTREMITIES: BLE edema SKIN: Bilateral pedal wounds HARPSICHORD MAKER: No focal deficits; alert and oriented times three. (Luisa Olvera [facility]) Assessment and Plan Assessment: (1) Tachycardia ICD Codes: R00.0 - Tachycardia, unspecified (2) Anemia ICD Codes: D64.9 - Anemia, unspecified (3) Upper GI bleed ICD Codes: K92.2 - Gastrointestinal hemorrhage, unspecified (4) DM (diabetes mellitus) ICD Codes: E11.9 - Type 2 diabetes mellitus without complications Status: Chronic Plan Assessment: - Anemia- Microcytic, hypochromic. H/H currently 8.2/25.4 S/P 3 U PRBCs, last one transfused yesterday. Pt does report vomiting last week and reports hematemesis on . Currently no N/V. Would recommend EGD when pt more stable. Will add Protonix. HR remains irregular with RVR, pt on Cardizem gtt. Pt advised to have BKA for osteomyelitis with poor chance for limb salvage- he says he would agree to this in 6 weeks. - abd distention - also c/o swollen testicles, leg edema. ?anasarca cardiology following. (07/07)- Pt has had elevated Troponins. Placed on Heparin gtt for NSTEMI, however he is refusing the Heparin gtt. Diabetic foot ulcer, ID following, pt has been advised by multiple doctors that amputation is the best option, pt refusing amputation and would like a different commercial account executive. Per RN pt has not had a BM today, no obvious GIB. H/H remains low but stable, currently 8.6/25.8- has not received PRBCs since Jul 03. Pt still not stable enough for EGD at this time. Will continue PPI and to monitor. 07/08/17 - HH stable. no obvious bleeding. pt c/o increasing abd distention and swollen testicles. pt refusing interventions for NSTEMI, foot ulcer. Plan: - continue PPI - EGD when clinically stable and more compliant with cardiac interventions - Monitor H/H - Transfuse as needed - Supportive care This pt has been seen and examined by myself and Dr. Jennings and this note is written on his behalf (Luisa Olvera) Physician Comments Patient seen and examined Agree with above Continue with current supportive care Monitor labs Not much to add at this point from a GI perspective therefore we will sign off Please reconsult as needed (Sheng Jennings MD) Luisa Olvera Jul 08, 2017 16:24 Sheng Jennings MD Jul 08, 2017 21:33
--- NOTE | 2017-07-08 18:16 | PD.CARD.PN ---
Subjective Subjective Remarks No angina, no SOB, nuclear stress test shows a large apical fixed defect c/w old [place], EF 24%, and no evidence of ischemia, refused amputation and anticoagulation for AF Objective Medications Current Medications Medications (Trade) Dose Ordered Sig/Tri Route Start Time Stop Time Status Last Admin (Sodium Bicarbonate 8.4% Inj) 100 meq UNSCH PRN IV PUSH 07/02/17 00:30 (Sodium Bicarbonate 8.4% Inj) 50 meq UNSCH PRN IV PUSH 07/02/17 00:30 (NS Flush) 2 ml UNSCH PRN IV FLUSH 07/02/17 01:30 (NS Flush) 2 ml BID IV FLUSH 07/02/17 09:00 07/08/17 09:00 (Tylenol) 650 mg Q6H PRN PO 07/02/17 01:30 (Morphine Inj) 2 mg Q2H PRN IV PUSH 07/02/17 01:30 (Versed Inj) 2 mg Q1H PRN IV PUSH 07/02/17 01:30 (Zofran Inj) 4 mg Q6H PRN IV PUSH 07/02/17 01:30 07/06/17 19:37 (Heparin Inj) 5,000 units Q8HR SQ 07/02/17 06:00 Future Hold Miscellaneous Information 1 Q361D XX 07/02/17 01:30 (Chlorhexidine 2% Cloth) Taper DAILY@04 TOP 07/02/17 04:00 06/28/18 03:59 07/05/17 04:00 (Chlorhexidine 2% Cloth) 3 pack UNSCH PRN TOP 07/02/17 01:30 (Emelia-Colace) 1 tab BID PO 07/02/17 09:00 07/08/17 08:58 (Senokot) 17.2 mg Q12H PRN PO 07/02/17 01:30 (Dulcolax Supp) 10 mg DAILY PRN RECTAL 07/02/17 01:30 (Lactulose Liq) 30 ml DAILY PRN PO 07/02/17 01:30 (Peridex 0.12% Liq) 15 ml BID@08,20 MT 07/02/17 08:00 07/05/17 08:00 (Lotrimin 1% Cream) 1 applic DAILY TOPICAL 07/02/17 09:00 (Roxicodone) 10 mg Q6H PRN PO 07/02/17 04:15 07/07/17 21:14 (Flomax) 0.4 mg HS PO 07/02/17 21:00 07/07/17 21:15 Pharmacy Profile Note 0 ml @ 0 mls/hr UNSCH OTHER 07/02/17 10:45 Potassium Chloride 100 ml @ 50 mls/hr Q2H PRN IV 07/02/17 16:30 (K-Lyte Cl Eff) 50 meq UNSCH PRN PO 07/02/17 16:30 Potassium Chloride 100 ml @ 25 mls/hr UNSCH PRN IV 07/02/17 16:30 Potassium Chloride 100 ml @ 50 mls/hr Q2H PRN IV 07/02/17 16:30 Magnesium Sulfate 4 gm/Sodium Chloride 100 ml @ 50 mls/hr UNSCH PRN IV 07/02/17 16:30 (Mag-Ox) 800 mg UNSCH PRN PO 07/02/17 16:30 Magnesium Sulfate 2 gm/Sodium Chloride 100 ml @ 50 mls/hr UNSCH PRN IV 07/02/17 16:30 (K-Phos) 2,000 mg Q4H PRN PO 07/02/17 16:30 Sodium Phosphate 30 mmol/Sodium Chloride 250 ml @ 42 mls/hr UNSCH PRN IV 07/02/17 16:30 07/02/17 18:34 (K-Phos) 2,000 mg UNSCH PRN PO/TUBE 07/02/17 16:30 Potassium Phosphate 30 mmol/ Sodium Chloride 260 ml @ 42 mls/hr UNSCH PRN IV 07/02/17 16:30 Potassium Chloride 100 ml @ 25 mls/hr Q4H PRN IV 07/02/17 16:45 (NovoLIN N INJ) 25 units HS SQ 07/02/17 21:00 07/07/17 21:00 (NovoLIN N INJ) 35 units DAILY SQ 07/03/17 09:00 07/08/17 08:59 (D50w (Vial) Inj) 50 ml UNSCH PRN IV PUSH 07/02/17 20:30 (Glucagon Inj) 1 mg UNSCH PRN OTHER 07/02/17 20:30 (NovoLOG SUPPLEMENTAL SCALE) 1 ACHS SLIDING SCALE SQ 07/02/17 21:00 07/08/17 12:46 Ampicillin Sodium/ Sulbactam Sodium 3 gm/Sodium Chloride 100 ml @ 200 mls/hr Q6H IV 07/04/17 12:00 07/08/17 12:38 (Albuterol Neb) 2.5 mg Q2HR NEB PRN NEB 07/04/17 11:45 (Protonix Inj) 40 mg Q12H IV PUSH 07/04/17 14:00 07/08/17 00:08 Lactated Ringer's 1,000 ml @ 30 mls/hr Q24H PRN IV 07/05/17 22:45 07/08/17 22:44 Sodium Chloride 500 ml @ 30 mls/hr [id number] PRN IV 07/05/17 22:45 07/08/17 22:44 (Betadine 5% Antisepsis Kit) 1 applic MINE WEDGE SAWYER PRN EACH NARE 07/05/17 22:45 07/08/17 22:44 (Chlorhexidine 2% Cloth) 3 pack MINE WEDGE SAWYER PRN TOPICAL 07/05/17 22:45 07/08/17 22:44 Vancomycin HCl 1750 mg/Sodium Chloride 517.5 ml @ 250 mls/hr Q24H IV 07/06/17 06:00 07/08/17 09:50 Heparin Sodium/ Dextrose 250 ml @ 10 mls/hr TITRATE PRN IV 07/05/17 14:00 07/07/17 00:27 (Nitrostat Sl) 0.3 mg Q5M PRN SL 07/05/17 14:30 (Cardizem) 60 mg QID PO 07/05/17 18:00 07/08/17 17:24 (Lopressor) 12.5 mg Q12HR PO 07/06/17 21:00 07/08/17 08:58 (Prinivil) 2.5 mg DAILY PO 07/07/17 09:00 07/08/17 08:58 Vital Signs / I&O Vital Signs Date Time Temp Pulse Resp B/P (MAP) Pulse Ox O2 Delivery O2 Flow Rate FiO2 07/08/17 14:00 98 07/08/17 12:00 88 07/08/17 12:00 97.9 88 21 112/55 (74) 88 07/08/17 10:00 82 07/08/17 08:00 87 07/08/17 08:00 98.4 87 25 119/66 (83) 96 07/08/17 07:46 96 Nasal Cannula 4.00 07/08/17 06:00 80 07/08/17 04:00 99.2 82 28 118/64 (82) 98 07/08/17 04:00 80 07/08/17 02:00 86 07/08/17 00:00 99.5 97 28 136/72 (93) 94 07/08/17 00:00 97 07/07/17 22:00 93 07/07/17 21:10 95 Nasal Cannula 4.00 07/07/17 20:00 99.5 86 19 114/64 (81) 94 07/07/17 20:00 86 I/O 07/07/17 07/07/17 07/07/17 07/08/17 07/08/17 07/08/17 07:00 15:00 23:00 07:00 15:00 23:00 Intake Total 100 ml 100 ml 520 ml 480 ml Output Total 850 ml 250 ml 1200 ml Balance 100 ml -750 ml 270 ml -720 ml Intake Oral 420 ml 480 ml IV Total 100 ml 100 ml 100 ml Output Urine Total 850 ml 250 ml 1200 ml # Bowel Movements 1 0 0 Physical Exam GENERAL: In NAD SKIN: Warm and dry. HEAD: Normocephalic. EYES: No scleral icterus. No injection or drainage. NECK: Supple, trachea midline. No JVD or lymphadenopathy. CARDIOVASCULAR: Irregular rate and rhythm, tachy, without murmurs, gallops, or rubs. RESPIRATORY: Breath sounds equal bilaterally. No accessory muscle use. GASTROINTESTINAL: Abdomen soft, non-tender, nondistended. MUSCULOSKELETAL: No cyanosis, LE edema and deformities. Laboratory Laboratory Tests Test 07/08/17 07:25 White Blood Count 8.7 TH/MM3 Red Blood Count 3.59 MIL/MM3 Hemoglobin 8.6 GM/DL Hematocrit 26.8 % Mean Corpuscular Volume 74.8 FL Mean Corpuscular Hemoglobin 23.9 PG Mean Corpuscular Hemoglobin Concent 31.9 % Red Cell Distribution Width 21.7 % Platelet Count 463 TH/MM3 Mean Platelet Volume 7.1 FL Neutrophils (%) (Auto) 71.9 % Lymphocytes (%) (Auto) 15.1 % Monocytes (%) (Auto) 8.4 % Eosinophils (%) (Auto) 4.0 % Basophils (%) (Auto) 0.6 % Neutrophils # (Auto) 6.2 TH/MM3 Lymphocytes # (Auto) 1.3 TH/MM3 Monocytes # (Auto) 0.7 TH/MM3 Eosinophils # (Auto) 0.3 TH/MM3 Basophils # (Auto) 0.1 TH/MM3 CBC Comment DIFF FINAL Differential Comment Blood Urea Nitrogen 26 MG/DL Creatinine 1.25 MG/DL Random Glucose 77 MG/DL Calcium Level 7.8 MG/DL Sodium Level 136 MEQ/L Potassium Level 4.5 MEQ/L Chloride Level 105 MEQ/L Carbon Dioxide Level 23.5 MEQ/L Anion Gap 8 MEQ/L Estimat Glomerular Filtration Rate 59 ML/MIN Vancomycin Level Trough 15.7 MCG/ML Assessment and Plan Problem List: (1) Angina pectoris ICD Codes: I20.9 - Angina pectoris, unspecified (2) Elevated troponin ICD Codes: R74.8 - Abnormal levels of other serum enzymes (3) Uncontrolled type 2 DM with hyperosmolar nonketotic hyperglycemia ICD Codes: E11.00 - Type 2 diabetes mellitus with hyperosmolarity without nonketotic hyperglycemic-hyperosmolar coma ([facility]) (4) CHF (congestive heart failure) ICD Codes: I50.9 - Heart failure, unspecified (5) CAD (coronary artery disease) ICD Codes: I25.10 - Atherosclerotic heart disease of [place] coronary artery without angina pectoris (6) Ischemic cardiomyopathy ICD Codes: I25.5 - Ischemic cardiomyopathy Assessment and Plan No new cardiac issues. Nuclear stress test c/w severe ischemic cardiomyopathy due to a large apical infarct, but no evidence of ischemia. Cardiac risk of anesthesia is increased but not prohibitive. Cleared for surgery if necessary. Continue tx for CHF. Continue rate control of a fib. Continue abxs as per ID. Tika Tucker MD Jul 08, 2017 18:16
--- NOTE | 2017-07-08 19:12 | HHI.CCPN ---
Subjective Remarks/Hospital Course 57-year-old male presents complaining of fever, coughing congestion, nausea vomiting, abdominal pain. Patient states that the symptoms started 4 days ago. Patient states that he has poor appetite. Patient has history of diabetes and blood sugars been running high at home. Patient states the abdominal pain is cramping pain intermittent pain associate with vomiting. Patient states that abdominal pain localized to lower abdomen. Patient denies any pain radiation. Patient denies any dysuria or frequency. He admits his cough is intermittent and mild productive. Patient denies any chest pain. Patient denies any shortness of breath. 07/03 No events overbright. Renal function is improving with Cr: 1.47 today. Off insulin drip. Afebrile. 07/04: Currently afebrile and hemodynamically stable. Remains on diltiazem drip at 15 mg an hour. Plan for two-part nuclear medicine stress test today and tomorrow. Requesting diet. Subjective 07/05: Afebrile. Currently he has chest "pressure". Does not radiate to the back of her up the neck/down left shoulder worse with deep inspiration. Not reproducible with palpation. Patient similar symptoms after eating yesterday for approximately 2 hours. Rates it 8 out of 10. Receiving diuretics, beta blockers and 1 dose of hydromorphone. Along with one dose of Maalox. Patient insisting on going to the commode first before we will provide the patient with these medications. 07/06: Sitting up in bed, denies chest pain. Ortho recommends Podiatry consult for wound debridement. Remains on IV Heparin for A Fib and post VT 07/07 PAtient is lying in bed in NAD. Afebrile. On Heparin drip. 07/08: seen and examined at length today. patient refusing any intervention for leg that isn't "a washout and 8 months of abx". Patient states that "at [facility], they took my right leg, and gave me 8 months of antibiotics through 5 different PICC lines, and did multiple washouts and it is fine now. Until all that happens, I'm never going to consent to an amputation, so you might as well go over there and talk to a wall, because you can stop talking to me." I explained that this infection is different from his prior infection, and 4 surgeons have independently evaluated this infection (podiatry x 2, orthopedics, vascular surgery) and all recommend amputation. In addition, patient continues to have active NSTEMI with elevated troponins, and I explained that undergoing the risk of surgery and anesthesia with active NSTEMI is only considered if we are doing what is medically indicated, and would be inappropriate to even suggest undergoing the increased anesthetic risk for an operation that was not indicated. I offered that the patient be transferred to [facility] for a second opinion by his former director compensation and he refused, saying "Dr. Alatorre (former director compensation) stopped seeing me after my foot was fixed, and I doubt he would ever see me again." He stated he did not want to be transferred to another facility. The patient stated that all he wanted was "A PICC line and some home antibiotics" and he would "figure out the rest later at home." I stated clearly that if he were to sign a refusal of treatment acknowledging that he understands he could without an amputation and he was still refusing this treatment, then I would ask ID specialists if we could arrange home antibiotics for the patient. The patient expressed complete understanding of this and is willing to sign the refusal of care agreement and understands he could by not adhering to our recommended therapy. I discussed the case further with Dr. Wolf who states that a PICC line is not safe today, but would be safe tomorrow with 72h of negative blood cultures. She stated she would place in her note a specific home regimen for home antibiotics. I additionally discussed the case with cardiology who recommended no additional inpatient testing was needed from a cardiac standpoint and if he was going to refuse amputation, there was no additional cardiac treatment needed and he could be discharged. The patient is very concerned about his scrotal edema. I explained that his scrotal edema, along with his LE edema, he anasarca was from his infection with bloodstream spread, combined with his NSTEMI and cardiac problems, and without control of his infection, we would likely not regain control of his edema. Objective Vital Signs Date Time Temp Pulse Resp B/P (MAP) Pulse Ox O2 Delivery O2 Flow Rate FiO2 07/08/17 18:00 97 07/08/17 16:00 98.4 32 123/58 (79) 84 07/08/17 07:46 Nasal Cannula 4.00 Intake and Output 107/08/17 07/08/17 07:59 15:59 23:59 Intake Total 480 ml 480 ml Output Total 1200 ml 1200 ml Balance -720 ml -720 ml Result Diagram: 07/08/17 0725 07/08/17 0725 Imaging Last Impressions Chest X-Ray 07/05/17 0000 Signed Impressions: Service Date/Time: Wednesday, July 05, 2017 15:40 - CONCLUSION: No acute disease. Noe Skinner MD Myocardial Perfusion Scan Nuc Med 07/04/17 0800 Signed Impressions: Service Date/Time: Tuesday, July 04, 2017 14:17 - CONCLUSION: 1. Large fixed apical defect consistent with an area of infarction. There is no definite reversibility to suggest ischemia. 2. Markedly decreased calculated ejection fraction of 24%% with akinesis in the apex and global hypokinesis. RISK CATEGORY: High (>3%% Annual Mortality Rate) Noe Skinner MD Foot MRI 07/03/172013 Signed Impressions: Service Date/Time: Monday, July 03, 2017 08:58 - CONCLUSION: Extensive inflammatory changes beginning above the ankle extending through the hindfoot and forefoot as described above. Hugh Harris MD FACR Ankle MRI 07/03/17 0000 Signed Impressions: Service Date/Time: Monday, July 03, 2017 08:58 - CONCLUSION: The bulk of the inflammatory changes appear to be centered around the lateral malleolus and the joint. Septic arthritis is suspected. Osteomalacia of the distal fibula, distal tibia and talus are suspected. Septic joint is suspected. Wound communicates with the fibula with large fluid collection the flow tip of fibula. CT angiography would be of benefit to assess vascular in flow. Hugh Harris MD FACR Foot X-Ray 07/02/17 0000 Signed Impressions: Service Date/Time: June 19:12 - CONCLUSION: Possible lateral erosion of the fourth metatarsal head. Patient is scheduled for MRI. No other acute bony abnormalities are demonstrated. Patient is status post amputation of the fifth toe and resection of the fifth metatarsal. Drake Jarvis MD Objective Remarks GENERAL: 49-year-old male, currently on room air in no acute distress. SKIN: Focused skin assessment warm/dry. Left lower extremity is currently wrapped in Kerlix with some serosanguineous drainage HEAD: Normocephalic. EYES: No scleral icterus. No injection or drainage. NECK: Supple, trachea midline. CARDIOVASCULAR: normal rate, regular rhythm. sinus by tele. RESPIRATORY: equal chest rise. room air. unlabored. GASTROINTESTINAL: Abdomen soft, non-tender, nondistended. MUSCULOSKELETAL: No cyanosis, bilateral chronic venous status changes, chronic stasis ulcerations to the left heel : significant scrotal edema with penile edema. no erythema or drainage noted. no fluctuance. NEURO: AO x3 No FND. Strength appears equal symmetric. A/P Assessment and Plan Assessment: 57yM with NSTEMI and LE osteomyelitis with associated sepsis and bacteremia. Agree with consultants assessment that we will never obtain source control with iv antibiotics alone and the patient medically requires an amputation. However, if patient is refusing the prescribed plan of care, the patient has no additional inpatient issues. I agree that he should not undergo the elevated risk of anesthesia for an operation that is not indicated ( debridement/washout). I will order PICC line to be placed tomorrow and with ID recommendations for an outpatient regimen, he can be discharged home after he signs the refusal of care agreement with the understanding that we have no additional treatment options to provide him if he refuses the current prescribed plan of care which has been vetted by 4 surgeons, all in agreement. Neuro/Psych: Anxiety disorder NOS Chronic narcotic use Acetaminophen 650 mg by mouth every 6 hours when necessary fever/pain 1-5 Morphine sulfate 2 mg IV distress. Oxycodone 10 mg by mouth every 6 hours. Pain 1-10 EEG: No seizures Pulm: Acute respiratory insufficiency- resolved. Oxygen PRN keep sat >92%. Currently on room air. Incentive spirometry while awake Albuterol/ipratropium aerosols every 6 hours with albuterol aerosols every 2 hours. Dyspnea CV: Non-STEMI Afib Hypertension 2D echo - LVSF is moderately reduced EF 40-45%. with anteroseptal hypokinesis Mild mitral valve regurgitation. There is trace tricuspid valve regurgitation. There is estimated mild pulmonary hypertension present (range 40-50 mmHg). The inferior vena cava is dilated. There is less than 50% respiratory change in dimension of the inferior vena cava (abnormal). Cards is following- Dr. Tucker. Nuclear medicine stress test revealed fixed apical defect. No ischemic reversibility change. EF 24%. Global hypokinesis with focal akinesis at the apex. High risk factor patient refusing IV heparin. On Lopressor 12.5mg Q12, Cardizem 60mg Q6, Lisinopril 2.5mg daily. FEN/Renal/: Acute kidney injury in the setting chronic kidney disease stage IIIa - improving. Hyponatremia Hypophosphatemia Erectile dysfunction BPH Scrotal edema Monitor renal function, I/O's, electrolytes replacement per protocol. Tamsulosin 0.4 mg by mouth daily edema will resolve once infection/SIRS response is treated with source control. difficult to treat prior to this, particularly with ongoing acute kidney injury and NSTEMI. GI: Hypoalbuminemia Anemia arrival requiring 3 units PRBCs heart healthy diet as tolerated. Pantoprazole 40 mill grams IV twice a day for GI prophylaxis GI is following Docusate sodium/senna 1 tablet twice a day for bowel regimen ID: Staph aureus/group B beta strep bacteremia Septic arthritis left lower extremity Diabetic foot ulcer Currently on ampicillin/sulbactam per infectious disease/Dr. Wolf MRI left lower extremity revealed left septic joint arthritis, degenerative changes of fibula, distal tibia and talus. Abscess/joint effusion and bone marrow edema noted. ID, Podiatry is following, Vascular surgeon following as well BC 07/01: Group B beta strep staph aureus 07/02 - wound culture - Acinetobacter, staph aureus, group A beta strep patient has refused amputation. no additional available options will place PICC line tomorrow. will plan on d/c home with outpatient antibiotics Heme: Microcytic anemia Leukocytosis Monitor CBC daily. Follow trends Endo: Diabetes mellitus Humulin R u-500 35 units in the morning 25 units at night. Novulin N -100 sliding-scale insulin at home SSI High Novulog ac/HS DVT GI prophylaxis - SCD, heparin drip. -Pantoprazole Patient has been non compliant and non cooperative with nursing staff and consultants. Rohit Cummings MD Jul 08, 2017 19:11
--- NOTE | 2017-07-08 19:15 | HHI.DS ---
Discharge Summary Admission Date Jul 02, 2017 at 00:34 Discharge Date: Jul 09, 2017 Admitting Diagnosis DKA. Acute on chronic kidney disease. Hyponatremia. Brief History 57-year-old male presents complaining of fever, coughing congestion, nausea vomiting, abdominal pain. Patient states that the symptoms started 4 days ago. Patient states that he has poor appetite. Patient has history of diabetes and blood sugars been running high at home. Patient states the abdominal pain is cramping pain intermittent pain associate with vomiting. Patient states that abdominal pain localized to lower abdomen. Patient denies any pain radiation. Patient denies any dysuria or frequency. He admits his cough is intermittent and mild productive. Patient denies any chest pain. Patient denies any shortness of breath. CBC/BMP: 07/08/17 0725 07/08/17 0725 Significant Findings Laboratory Tests Test 07/05/17 20:45 07/06/17 06:30 07/06/17 21:14 07/07/17 09:03 Hemoglobin 8.9 GM/DL (13.0-17.0) 8.3 GM/DL (13.0-17.0) 8.6 GM/DL (13.0-17.0) Troponin I 2.60 NG/ML (0.02-0.05) 2.72 NG/ML (0.02-0.05) 2.82 NG/ML (0.02-0.05) Red Blood Count 3.28 MIL/MM3 (4.50-5.90) 3.44 MIL/MM3 (4.50-5.90) Hematocrit 24.4 % (39.0-51.0) 25.8 % (39.0-51.0) Mean Corpuscular Volume 74.4 FL (80.0-100.0) 74.8 FL (80.0-100.0) Mean Corpuscular Hemoglobin 25.2 PG (27.0-34.0) 24.9 PG (27.0-34.0) Red Cell Distribution Width 22.0 % (11.6-17.2) 22.3 % (11.6-17.2) Platelet Count 511 TH/MM3 (150-450) 507 TH/MM3 (150-450) Monocytes (%) (Auto) 9.2 % (0.0-8.0) 8.7 % (0.0-8.0) Eosinophils (%) (Auto) 4.2 % (0.0-4.0) 4.5 % (0.0-4.0) Monocytes # (Auto) 1.0 TH/MM3 (0-0.9) Activated Partial Thromboplast Time 33.2 SEC (24.3-30.1) 33.2 SEC (24.3-30.1) Blood Urea Nitrogen 30 MG/DL (7-18) 27 MG/DL (7-18) Creatinine 1.33 MG/DL (0.60-1.30) Albumin 1.6 GM/DL (3.4-5.0) Calcium Level 8.2 MG/DL (8.5-10.1) 7.9 MG/DL (8.5-10.1) Alkaline Phosphatase 307 U/L (45-117) Sodium Level 133 MEQ/L (136-145) 133 MEQ/L (136-145) Carbon Dioxide Level 20.9 MEQ/L (21.0-32.0) 20.8 MEQ/L (21.0-32.0) Estimat Glomerular Filtration Rate 55 ML/MIN (>89) 57 ML/MIN (>89) Platelet Estimate HIGH (NORMAL) Random Glucose 197 MG/DL (74-106) Test 07/08/17 07:25 Red Blood Count 3.59 MIL/MM3 (4.50-5.90) Hemoglobin 8.6 GM/DL (13.0-17.0) Hematocrit 26.8 % (39.0-51.0) Mean Corpuscular Volume 74.8 FL (80.0-100.0) Mean Corpuscular Hemoglobin 23.9 PG (27.0-34.0) Mean Corpuscular Hemoglobin Concent 31.9 % (32.0-36.0) Red Cell Distribution Width 21.7 % (11.6-17.2) Platelet Count 463 TH/MM3 (150-450) Neutrophils (%) (Auto) 71.9 % (16.0-70.0) Monocytes (%) (Auto) 8.4 % (0.0-8.0) Blood Urea Nitrogen 26 MG/DL (7-18) Calcium Level 7.8 MG/DL (8.5-10.1) Estimat Glomerular Filtration Rate 59 ML/MIN (>89) Vancomycin Level Trough 15.7 MCG/ML (5.0-10.0) Hospital Course 57-year-old male presents complaining of fever, coughing congestion, nausea vomiting, abdominal pain. Patient states that the symptoms started 4 days ago. Patient states that he has poor appetite. Patient has history of diabetes and blood sugars been running high at home. Patient states the abdominal pain is cramping pain intermittent pain associate with vomiting. Patient states that abdominal pain localized to lower abdomen. Patient denies any pain radiation. Patient denies any dysuria or frequency. He admits his cough is intermittent and mild productive. Patient denies any chest pain. Patient denies any shortness of breath. 07/03 No events overbright. Renal function is improving with Cr: 1.47 today. Off insulin drip. Afebrile. 07/04: Currently afebrile and hemodynamically stable. Remains on diltiazem drip at 15 mg an hour. Plan for two-part nuclear medicine stress test today and tomorrow. Requesting diet. Subjective 07/05: Afebrile. Currently he has chest "pressure". Does not radiate to the back of her up the neck/down left shoulder worse with deep inspiration. Not reproducible with palpation. Patient similar symptoms after eating yesterday for approximately 2 hours. Rates it 8 out of 10. Receiving diuretics, beta blockers and 1 dose of hydromorphone. Along with one dose of Maalox. Patient insisting on going to the commode first before we will provide the patient with these medications. 07/06: Sitting up in bed, denies chest pain. Ortho recommends Podiatry consult for wound debridement. Remains on IV Heparin for A Fib and post MO 07/07 PAtient is lying in bed in NAD. Afebrile. On Heparin drip. 07/08: seen and examined at length today. patient refusing any intervention for leg that isn't "a washout and 8 months of abx". Patient states that "at [facility], they took my right leg, and gave me 8 months of antibiotics through 5 different PICC lines, and did multiple washouts and it is fine now. Until all that happens, I'm never going to consent to an amputation, so you might as well go over there and talk to a wall, because you can stop talking to me." I explained that this infection is different from his prior infection, and 4 surgeons have independently evaluated this infection (podiatry x 2, orthopedics, vascular surgery) and all recommend amputation. In addition, patient continues to have active NSTEMI with elevated troponins, and I explained that undergoing the risk of surgery and anesthesia with active NSTEMI is only considered if we are doing what is medically indicated, and would be inappropriate to even suggest undergoing the increased anesthetic risk for an operation that was not indicated. I offered that the patient be transferred to [facility] for a second opinion by his former central services tech and he refused, saying "Dr. Alatorre (former central services tech) stopped seeing me after my foot was fixed, and I doubt he would ever see me again." He stated he did not want to be transferred to another facility. The patient stated that all he wanted was "A PICC line and some home antibiotics" and he would "figure out the rest later at home." I stated clearly that if he were to sign a refusal of treatment acknowledging that he understands he could without an amputation and he was still refusing this treatment, then I would ask ID specialists if we could arrange home antibiotics for the patient. The patient expressed complete understanding of this and is willing to sign the refusal of care agreement and understands he could by not adhering to our recommended therapy. I discussed the case further with Dr. Wolf who states that a PICC line is not safe today, but would be safe tomorrow with 72h of negative blood cultures. She stated she would place in her note a specific home regimen for home antibiotics. I additionally discussed the case with cardiology who recommended no additional inpatient testing was needed from a cardiac standpoint and if he was going to refuse amputation, there was no additional cardiac treatment needed and he could be discharged. The patient is very concerned about his scrotal edema. I explained that his scrotal edema, along with his LE edema, he anasarca was from his infection with bloodstream spread, combined with his NSTEMI and cardiac problems, and without control of his infection, we would likely not regain control of his edema. Pt Condition on Discharge: Stable Discharge Disposition: Disch w/ Home Health Serv Discharge Instructions DIET: Follow Instructions for: Heart Healthy Diet Activities you can perform: Weight Bearing as Rohit Lerma MD Jul 08, 2017 19:15
--- NOTE | 2017-07-08 19:17 | HHI.FF ---
Face to Face Verification Diagnosis: (1) Foot ulcer, left (2) Diabetic ketoacidosis (3) Acute kidney injury superimposed on chronic kidney disease (4) Elevated troponin (5) CAD (coronary artery disease) (6) CHF (congestive heart failure) (7) Osteomyelitis of ankle or foot, left, acute Home Health Nursing Order: Medical education Medication education-adverse effect Wound care and dressing changes IV medication administration I have seen patient Luther Lucas on 07/08/17. My clinical findings support the need for the requested home health care services because: Ltd mobility - disease progression Med compliance is questionable Limited ability to care for self Infection w/ risk of complications Injectable med education/admin I certify that my clinical findings support that this patient is homebound because: Impaired cognitive ability/safety Unsteady gait/balance Unsafe to leave home unassisted Unable to use public transportation Rohit Cummings MD Jul 08, 2017 19:16
[2017-07-08] MEDS: TAMSULOSIN HCL 0.4 MG CAP PO SCH (21:00)
[2017-07-08] MEDS: ONDANSETRON HCL 4 MG/2 ML VIAL IV PUSH PRN (21:02)
[2017-07-09] VITALS (19 sets, daily range): BP systolic 114–151; BP diastolic 56–87; PULSE 81–101; RESP 16–29; TEMP 97.8–98.4; O2SAT 81–97
[2017-07-09] MEDS: PANTOPRAZOLE SODIUM 40 MG VIAL IV PUSH SCH ×2 (01:49→12:18)
[2017-07-09] MEDS: ONDANSETRON HCL 4 MG/2 ML VIAL IV PUSH PRN (03:15)
[2017-07-09] MEDS: CHLORHEXIDINE GLUCONATE 2 % 1 PACK (2 CLOTHS) TOP SCH (04:00)
[2017-07-09] MEDS: VANCOMYCIN INJ 1,750 MG in SODIUM CHLORID 0.9% 500 ML INJ 500 ML IV SCH (06:00)
[2017-07-09] MEDS: AMPICILLIN-SULBACTAM INJ 3 GM in SODIUM CHLORIDE 0.9% INJ 100 ML IV SCH ×5 (06:00→16:53)
[2017-07-09 06:49] LABS: CREATININE 1.2 MG/DL (0.60-1.30)
[2017-07-09] MEDS: INSULIN ASPART SUPPLEMENTAL SCALE SQ SCH ×4 (08:00→21:00)
[2017-07-09] MEDS: CHLORHEXIDINE 0.12% (ORAL KIT) 15 ML CUP MT SCH ×2 (08:00→20:00)
[2017-07-09] MEDS: CLOTRIMAZOLE 1% CREAM 15 GM TOPICAL SCH (09:00)
--- NOTE | 2017-07-09 09:12 | HHI.FF ---
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 [] May leave port accessed during therapy. [] May leave peripheral site accessed for duration of therapy. [x] If patient has SOB or respiratory distress, check oxygen saturation. If less than 90% or clinical signs of respiratory distress, administer oxygen at 2 L/min. via nasal cannula and notify physician. [x] Anaphylaxis/Reaction orders: * Stop infusion. * Keep IV line open with saline flush. * Notify physician. * Monitor vital signs every 15 minutes until symptoms resolve. * Check Oxygen saturation; Oxygen at 2 L/min. via nasal cannula if less than 90% or clinical signs of respiratory distress. * Administer diphenhydramine (Benadryl) 25 mg IV STAT, (unless patient has received as pre-med). May repeat once, if necessary. * Solu-Cortef 250 mg IVP over 30-60 seconds, use 100 mg vials for each dissolution. * Epinephrine (1mg/1 ml) 0.3 mg subcutaneously or IVP now with any signs of respiratory distress. * Check with physician for new additional pre-med orders if patient is re- challenged or re-treated. [x] May remove PICC line when treatment complete, after confirming with Physician. [x] If the patient is admitted to the hospital, the ED, or transferred via [facility] , complete transfer form including medication reconciliation order sheet. Laboratory Tests Weekly Labs: CBC w/diff, Creatinine, CRP, LFT's (Hepatic function test), SED Rate Coty Wolf MD Jul 09, 2017 09:12
[2017-07-09] MEDS ORDERED: EPIN1INJ21 SQ (09:14)
[2017-07-09] MEDS ORDERED: SOLU250I IV PUSH (09:14)
[2017-07-09] MEDS ORDERED: EPIN1INJ21 IV PUSH (09:14)
--- NOTE | 2017-07-09 09:19 | HHI.PR ---
Addendum to Inpatient Note Additional Information Case was dw Dr Emiliano allen over the phone Apparently pt adamantly refuses only availbale treatment in his case (BKA) will dc him on IV and oral abx x 8 weeks High likelyhood of clinical failure as well as risk of abx tx complications ( including and not limited to kidney and liver damage, C..diff, allergic reactions, bone marrow suppression etc) fu with Dr Gerard PICC line can be placed after blood clx documented negative x 72 hrs Coty Wolf MD Jul 09, 2017 09:19
[2017-07-09] MEDS: INSULIN HUMAN NPH 1,000 UNITS/10 ML VIAL SQ SCH ×2 (09:54→21:00)
[2017-07-09] MEDS: DILTIAZEM HCL 60 MG TAB PO SCH ×4 (09:55→21:52)
[2017-07-09] MEDS: METOPROLOL TARTRATE 25 MG TAB PO SCH ×2 (09:56→21:52)
[2017-07-09] MEDS: DOCUSATE SODIUM 50 MG/SENNA 8.6 MG TAB PO SCH ×2 (09:56→21:00)
[2017-07-09] MEDS: LISINOPRIL 5 MG TAB PO SCH (09:56)
[2017-07-09] MEDS: SODIUM CHLORIDE 0.9% FLUSH 10 ML FLUSH IV FLUSH SCH ×2 (09:59→21:53)
[2017-07-09] MEDS ORDERED: WALKER WHEELS/F1 MIS ×2 (11:04→12:16)
--- NOTE | 2017-07-09 13:34 | PD.CARD.PN ---
Subjective Subjective Remarks No angina, no SOB, nuclear stress test shows a large apical fixed defect c/w old UT, EF 24%, and no evidence of ischemia, refused amputation and anticoagulation for AF, wishes to go home with antibiotics Objective Medications Current Medications Medications (Trade) Dose Ordered Sig/Tri Route Start Time Stop Time Status Last Admin (Sodium Bicarbonate 8.4% Inj) 100 meq UNSCH PRN IV PUSH 07/02/17 00:30 (Sodium Bicarbonate 8.4% Inj) 50 meq UNSCH PRN IV PUSH 07/02/17 00:30 (NS Flush) 2 ml UNSCH PRN IV FLUSH 07/02/17 01:30 (NS Flush) 2 ml BID IV FLUSH 07/02/17 09:00 07/09/17 09:59 (Tylenol) 650 mg Q6H PRN PO 07/02/17 01:30 (Morphine Inj) 2 mg Q2H PRN IV PUSH 07/02/17 01:30 (Versed Inj) 2 mg Q1H PRN IV PUSH 07/02/17 01:30 (Zofran Inj) 4 mg Q6H PRN IV PUSH 07/02/17 01:30 07/09/17 03:15 (Heparin Inj) 5,000 units Q8HR SQ 07/02/17 06:00 Future Hold Miscellaneous Information 1 Q361D XX 07/02/17 01:30 (Chlorhexidine 2% Cloth) Taper DAILY@04 TOP 07/02/17 04:00 06/28/18 03:59 07/05/17 04:00 (Chlorhexidine 2% Cloth) 3 pack UNSCH PRN TOP 07/02/17 01:30 (Emelia-Colace) 1 tab BID PO 07/02/17 09:00 07/09/17 09:56 (Senokot) 17.2 mg Q12H PRN PO 07/02/17 01:30 (Dulcolax Supp) 10 mg DAILY PRN RECTAL 07/02/17 01:30 (Lactulose Liq) 30 ml DAILY PRN PO 07/02/17 01:30 (Peridex 0.12% Liq) 15 ml BID@08,20 MT 07/02/17 08:00 07/05/17 08:00 (Lotrimin 1% Cream) 1 applic DAILY TOPICAL 07/02/17 09:00 (Roxicodone) 10 mg Q6H PRN PO 07/02/17 04:15 07/09/17 09:58 (Flomax) 0.4 mg HS PO 07/02/17 21:00 07/07/17 21:15 Pharmacy Profile Note 0 ml @ 0 mls/hr UNSCH OTHER 07/02/17 10:45 Potassium Chloride 100 ml @ 50 mls/hr Q2H PRN IV 07/02/17 16:30 (K-Lyte Cl Eff) 50 meq UNSCH PRN PO 07/02/17 16:30 Potassium Chloride 100 ml @ 25 mls/hr UNSCH PRN IV 07/02/17 16:30 Potassium Chloride 100 ml @ 50 mls/hr Q2H PRN IV 07/02/17 16:30 Magnesium Sulfate 4 gm/Sodium Chloride 100 ml @ 50 mls/hr UNSCH PRN IV 07/02/17 16:30 (Mag-Ox) 800 mg UNSCH PRN PO 07/02/17 16:30 Magnesium Sulfate 2 gm/Sodium Chloride 100 ml @ 50 mls/hr UNSCH PRN IV 07/02/17 16:30 (K-Phos) 2,000 mg Q4H PRN PO 07/02/17 16:30 Sodium Phosphate 30 mmol/Sodium Chloride 250 ml @ 42 mls/hr UNSCH PRN IV 07/02/17 16:30 07/02/17 18:34 (K-Phos) 2,000 mg UNSCH PRN PO/TUBE 07/02/17 16:30 Potassium Phosphate 30 mmol/ Sodium Chloride 260 ml @ 42 mls/hr UNSCH PRN IV 07/02/17 16:30 Potassium Chloride 100 ml @ 25 mls/hr Q4H PRN IV 07/02/17 16:45 (NovoLIN N INJ) 25 units HS SQ 07/02/17 21:00 07/07/17 21:00 (NovoLIN N INJ) 35 units DAILY SQ 07/03/17 09:00 07/09/17 09:54 (D50w (Vial) Inj) 50 ml UNSCH PRN IV PUSH 07/02/17 20:30 (Glucagon Inj) 1 mg UNSCH PRN OTHER 07/02/17 20:30 (NovoLOG SUPPLEMENTAL SCALE) 1 ACHS SLIDING SCALE SQ 07/02/17 21:00 07/09/17 12:22 Ampicillin Sodium/ Sulbactam Sodium 3 gm/Sodium Chloride 100 ml @ 200 mls/hr Q6H IV 07/04/17 12:00 07/09/17 12:19 (Albuterol Neb) 2.5 mg Q2HR NEB PRN NEB 07/04/17 11:45 (Protonix Inj) 40 mg Q12H IV PUSH 07/04/17 14:00 07/09/17 12:18 Vancomycin HCl 1750 mg/Sodium Chloride 517.5 ml @ 250 mls/hr Q24H IV 07/06/17 06:00 07/09/17 06:00 Heparin Sodium/ Dextrose 250 ml @ 10 mls/hr TITRATE PRN IV 07/05/17 14:00 07/07/17 00:27 (Nitrostat Sl) 0.3 mg Q5M PRN SL 07/05/17 14:30 (Cardizem) 60 mg QID PO 07/05/17 18:00 07/09/17 12:18 (Lopressor) 12.5 mg Q12HR PO 07/06/17 21:00 07/09/17 09:56 (Prinivil) 2.5 mg DAILY PO 07/07/17 09:00 07/09/17 09:56 Miscellaneous Information SPECIFIC LAB TO BE DRAWN:VANCOMYCIN TROUGH DATE TO... ONCE ONCE .XX 07/11/17 05:45 07/11/17 05:46 Vital Signs / I&O Vital Signs Date Time Temp Pulse Resp B/P (MAP) Pulse Ox O2 Delivery O2 Flow Rate FiO2 07/09/17 06:00 81 07/09/17 04:00 81 07/09/17 04:00 98.3 85 19 114/62 (79) 95 07/09/17 02:00 92 07/09/17 00:00 98.3 101 22 151/87 (108) 97 07/09/17 00:00 101 07/08/17 22:00 95 07/08/17 20:00 98.1 101 16 147/83 (104) 91 07/08/17 20:00 69 07/08/17 18:00 97 07/08/17 16:00 98.4 84 32 123/58 (79) 84 07/08/17 16:00 84 07/08/17 14:00 98 I/O 07/08/17 07/08/17 07/08/17 07/09/17 07/09/17 07/09/17 07:00 15:00 23:00 07:00 15:00 23:00 Intake Total 480 ml 517.5 ml 680 ml 500 ml Output Total 1200 ml 1200 ml 1200 ml Balance -720 ml 517.5 ml -520 ml -700 ml Intake Oral 480 ml 480 ml 500 ml IV Total 517.5 ml 200 ml Output Urine Total 1200 ml 1200 ml 1200 ml # Bowel Movements 0 0 0 Physical Exam GENERAL: In NAD SKIN: Warm and dry. HEAD: Normocephalic. EYES: No scleral icterus. No injection or drainage. NECK: Supple, trachea midline. No JVD or lymphadenopathy. CARDIOVASCULAR: Irregular rate and rhythm, tachy, without murmurs, gallops, or rubs. RESPIRATORY: Breath sounds equal bilaterally. No accessory muscle use. GASTROINTESTINAL: Abdomen soft, non-tender, nondistended. MUSCULOSKELETAL: No cyanosis, LE wounds and edema, no deformities. Laboratory Laboratory Tests Test 07/09/17 05:46 Creatinine 1.20 MG/DL Estimat Glomerular Filtration Rate 62 ML/MIN Assessment and Plan Problem List: (1) Angina pectoris ICD Codes: I20.9 - Angina pectoris, unspecified (2) Elevated troponin ICD Codes: R74.8 - Abnormal levels of other serum enzymes (3) Uncontrolled type 2 DM with hyperosmolar nonketotic hyperglycemia ICD Codes: E11.00 - Type 2 diabetes mellitus with hyperosmolarity without nonketotic hyperglycemic-hyperosmolar coma ([facility]) (4) CHF (congestive heart failure) ICD Codes: I50.9 - Heart failure, unspecified (5) CAD (coronary artery disease) ICD Codes: I25.10 - Atherosclerotic heart disease of [place] coronary artery without angina pectoris (6) Ischemic cardiomyopathy ICD Codes: I25.5 - Ischemic cardiomyopathy Assessment and Plan No angina or CHF. No new cardiac issues. Nuclear stress test c/w severe ischemic cardiomyopathy due to a large apical infarct, but no evidence of ischemia. Cardiac risk of anesthesia is increased but not prohibitive. Cleared for surgery if necessary. At this time he refused any interventions. Continue tx for CHF. Continue rate control of a fib. Continue abxs as per ID (port placement planned). Tika Tucker MD Jul 09, 2017 13:34
--- NOTE | 2017-07-09 15:04 | RADRPT ---
EXAM DATE/TIME: 07/09/2017 14:37 [facility] COMPARISON: CHEST SINGLE AP, July 05, 2017, 15:40. POC ULTRASOUND VASCULAR ACCESS TEAM, July 05, 2017, 15: 37. INDICATIONS : PICC Line placement. Shortness of breath. MEDICAL HISTORY : Hypertension. Diabetes mellitus type II. SURGICAL HISTORY : None. ENCOUNTER: Subsequent ACUITY: 4 - 6 days PAIN SCORE: 0/10 LOCATION: Bilateral chest FINDINGS: A right arm PICC line is present in satisfactory position. There is mild basilar parietal opacity and effusion. Cardiac contours are grossly stable with borderline heart size. CONCLUSION: Satisfactory PICC line positioning. Slight interval worsening aeration. Drake Espinal MD on July 09, 2017 at 14:57 Board Certified Radiologist. This report was verified electronically.
[2017-07-09] MEDS ORDERED: SODIUM CHLORIDE 0.9% FLUSH 10 ML FLUSH IV FLUSH PRN (15:15)
[2017-07-09] MEDS ORDERED: CEFA2SOL IV (16:08)
[2017-07-09] MEDS ORDERED: LEVA750T9 PO (16:08)
--- NOTE | 2017-07-09 16:18 | HHI.IDPN ---
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 Vital Signs Date Time Temp Pulse Resp B/P (MAP) Pulse Ox O2 Delivery O2 Flow Rate FiO2 07/09/17 06:00 81 07/09/17 04:00 81 07/09/17 04:00 98.3 85 19 114/62 (79) 95 07/09/17 02:00 92 07/09/17 00:00 98.3 101 22 151/87 (108) 97 07/09/17 00:00 101 07/08/17 22:00 95 07/08/17 20:00 98.1 101 16 147/83 (104) 91 07/08/17 20:00 69 07/08/17 18:00 97 . Laboratory Tests Test 07/08/17 07:25 White Blood Count 8.7 TH/MM3 Red Blood Count 3.59 MIL/MM3 Hemoglobin 8.6 GM/DL Hematocrit 26.8 % Mean Corpuscular Volume 74.8 FL Mean Corpuscular Hemoglobin 23.9 PG Mean Corpuscular Hemoglobin Concent 31.9 % Red Cell Distribution Width 21.7 % Platelet Count 463 TH/MM3 Mean Platelet Volume 7.1 FL Neutrophils (%) (Auto) 71.9 % Lymphocytes (%) (Auto) 15.1 % Monocytes (%) (Auto) 8.4 % Eosinophils (%) (Auto) 4.0 % Basophils (%) (Auto) 0.6 % Neutrophils # (Auto) 6.2 TH/MM3 Lymphocytes # (Auto) 1.3 TH/MM3 Monocytes # (Auto) 0.7 TH/MM3 Eosinophils # (Auto) 0.3 TH/MM3 Basophils # (Auto) 0.1 TH/MM3 CBC Comment DIFF FINAL Differential Comment Laboratory Tests Test 07/08/17 07:25 07/09/17 05:46 Blood Urea Nitrogen 26 MG/DL Creatinine 1.25 MG/DL 1.20 MG/DL Random Glucose 77 MG/DL Calcium Level 7.8 MG/DL Sodium Level 136 MEQ/L Potassium Level 4.5 MEQ/L Chloride Level 105 MEQ/L Carbon Dioxide Level 23.5 MEQ/L Anion Gap 8 MEQ/L Estimat Glomerular Filtration Rate 59 ML/MIN 62 ML/MIN Microbiology Date/Time Source Procedure Growth Status 07/06/17 16:51 Blood Peripheral Aerobic Blood Culture - Preliminary NO GROWTH IN 3 DAYS Resulted 07/06/17 16:51 Blood Peripheral Anaerobic Blood Culture - Preliminary NO GROWTH IN 3 DAYS Resulted 07/06/17 16:40 Blood Peripheral Aerobic Blood Culture - Preliminary NO GROWTH IN 3 DAYS Resulted 07/06/17 16:40 Blood Peripheral Anaerobic Blood Culture - Preliminary NO GROWTH IN 3 DAYS Resulted Imaging Last Impressions Chest X-Ray 07/09/17 0000 Signed Impressions: Service Date/Time: June 14:37 - CONCLUSION: Satisfactory PICC line positioning. Slight interval worsening aeration. Drake Espinal MD Myocardial Perfusion Scan Nuc Med 07/04/17 0800 Signed Impressions: Service Date/Time: Tuesday, July 04, 2017 14:17 - CONCLUSION: 1. Large fixed apical defect consistent with an area of infarction. There is no definite reversibility to suggest ischemia. 2. Markedly decreased calculated ejection fraction of 24%% with akinesis in the apex and global hypokinesis. RISK CATEGORY: High (>3%% Annual Mortality Rate) Noe Skinner MD Foot MRI 07/03/172013 Signed Impressions: Service Date/Time: Monday, July 03, 2017 08:58 - CONCLUSION: Extensive inflammatory changes beginning above the ankle extending through the hindfoot and forefoot as described above. Hugh Harris MD FACR Ankle MRI 07/03/17 0000 Signed Impressions: Service Date/Time: Monday, July 03, 2017 08:58 - CONCLUSION: The bulk of the inflammatory changes appear to be centered around the lateral malleolus and the joint. Septic arthritis is suspected. Osteomalacia of the distal fibula, distal tibia and talus are suspected. Septic joint is suspected. Wound communicates with the fibula with large fluid collection the flow tip of fibula. CT angiography would be of benefit to assess vascular in flow. Hugh Harris MD FACR Foot X-Ray 07/02/17 0000 Signed Impressions: Service Date/Time: June 19:12 - CONCLUSION: Possible lateral erosion of the fourth metatarsal head. Patient is scheduled for MRI. No other acute bony abnormalities are demonstrated. Patient is status post amputation of the fifth toe and resection of the fifth metatarsal. Drake Jarvis MD Physical Exam CONSTITUTIONAL/GENERAL: This is an adequately nourished patient, in no apparent distress. Appears sick TUBES/LINES/DRAINS: SKIN: No jaundice, rashes, or lesions. Skin temperature appropriate. Not diaphoretic. CARDIOVASCULAR: irregular rate and rhythm without murmurs, gallops, or rubs. Afinb on monitor No JVD. Peripheral pulses symmetric. RESPIRATORY/CHEST: Symmetric, unlabored respirations. Clear to auscultation. Breath sounds equal bilaterally. No wheezes, rales, or rhonchi. b/b diminished BS GASTROINTESTINAL: Abdomen soft, non-tender, nondistended. No hepato-splenomegaly , or palpable masses. No guarding. Bowel sounds present. GENITOURINARY: Without palpable bladder distension. MUSCULOSKELETAL: Extremities without clubbing, cyanosis, L foot with dressing in place + persistent edema BLE NEUROLOGICAL: Awake and alert. Motor and sensory grossly within normal limits. Follows commands. Clear speech. Moves all extremities. PSYCHIATRIC: No obvious anxiety/depression. no apparent hallucinations or other psychotic thought process. Assessment & Plan Remarks Sepsis from infected L foot, MSSA L foot DFI and likely osteo given the chronicity of the problem - extemnsive osteo, septic ankele, unsalvagible limb, but pt refusing amputaiton - mixed aerobic/anaerobic, polimicrobial infx - agrre with ortho This is limb threatening, life threatening infeciton NSTEMI Sever CHF ARF Cough, can not exclude denise broncho pneumonaia, clx with nl resp raghu - probnably related to heart failure prognosis for limb salavage is extremely poor, pt is at high risk for sepsis and further infectious coplications e.i. endocarditis, vertebral osteo and other conservative mngmnt with abx alone and/or I+D is not going to be successfull Apparently pt adamantly refuses only availbale treatment in his case (BKA) will dc him on IV and oral abx x 8 weeks (cefazoline) Levaquine x 6 wks for Acinetobacter coverage High likelyhood of clinical failure as well as risk of abx tx complications ( including and not limited to kidney and liver damage, C..diff, allergic reactions, bone marrow suppression etc) fu with Dr Juan leal RN Coty Wolf MD Jul 09, 2017 16:18
[2017-07-09] MEDS: TAMSULOSIN HCL 0.4 MG CAP PO SCH (21:00)
[2017-07-10] VITALS (7 sets, daily range): BP systolic 128–160; BP diastolic 60–97; PULSE 85–106; RESP 17–25; TEMP 98.4; O2SAT 98
[2017-07-10] MEDS: PANTOPRAZOLE SODIUM 40 MG VIAL IV PUSH SCH (00:23)
[2017-07-10] MEDS: CHLORHEXIDINE GLUCONATE 2 % 1 PACK (2 CLOTHS) TOP SCH (00:23)
[2017-07-10] MEDS: AMPICILLIN-SULBACTAM INJ 3 GM in SODIUM CHLORIDE 0.9% INJ 100 ML IV SCH ×3 (00:23→12:41)
[2017-07-10] MEDS: VANCOMYCIN INJ 1,750 MG in SODIUM CHLORID 0.9% 500 ML INJ 500 ML IV SCH (06:14)
[2017-07-10] MEDS: INSULIN ASPART SUPPLEMENTAL SCALE SQ SCH ×2 (08:00→12:00)
[2017-07-10] MEDS: CHLORHEXIDINE 0.12% (ORAL KIT) 15 ML CUP MT SCH (08:00)
[2017-07-10] MEDS: METOPROLOL TARTRATE 25 MG TAB PO SCH (08:37)
[2017-07-10] MEDS: DILTIAZEM HCL 60 MG TAB PO SCH ×2 (08:37→12:40)
[2017-07-10] MEDS: SODIUM CHLORIDE 0.9% FLUSH 10 ML FLUSH IV FLUSH SCH (08:37)
[2017-07-10] MEDS: LISINOPRIL 5 MG TAB PO SCH (08:37)
[2017-07-10] MEDS: DOCUSATE SODIUM 50 MG/SENNA 8.6 MG TAB PO SCH (08:37)
[2017-07-10] MEDS ORDERED: SODIUM CHLORIDE 0.9% FLUSH 10 ML FLUSH IV FLUSH SCH (09:00)
--- NOTE | 2017-07-10 09:29 | HHI.DS ---
Discharge Summary Admission Date Jul 02, 2017 at 00:34 Discharge Date: Jul 10, 2017 Admitting Diagnosis DKA. Acute on chronic kidney disease. Hyponatremia. (1) Osteomyelitis of ankle or foot, left, acute ICD Codes: M86.172 - Other acute osteomyelitis, left ankle and foot (2) Ischemic cardiomyopathy ICD Codes: I25.5 - Ischemic cardiomyopathy (3) CHF (congestive heart failure) ICD Codes: I50.9 - Heart failure, unspecified (4) DM (diabetes mellitus) ICD Codes: E11.9 - Type 2 diabetes mellitus without complications Status: Chronic (5) Acute kidney injury superimposed on chronic kidney disease ICD Codes: N17.9 - Acute kidney failure, unspecified; N18.9 - Chronic kidney disease, unspecified Status: Acute (6) Bacteremia ICD Codes: R78.81 - Bacteremia Status: Acute (7) Cellulitis of toe, right ICD Codes: L03.031 - Cellulitis of right toe Status: Acute (8) Foot ulcer, left ICD Codes: L97.529 - Non-pressure chronic ulcer of other part of left foot with unspecified severity Status: Acute (9) Diabetic ketoacidosis ICD Codes: E13.10 - Other specified diabetes mellitus with ketoacidosis without coma Status: Acute (10) Hyponatremia ICD Codes: E87.1 - Hypo-osmolality and hyponatremia Status: Acute CBC/BMP: 07/08/17 0725 07/09/17 0546 Significant Findings Laboratory Tests Test 07/08/17 07:25 07/09/17 05:46 Red Blood Count 3.59 MIL/MM3 (4.50-5.90) Hemoglobin 8.6 GM/DL (13.0-17.0) Hematocrit 26.8 % (39.0-51.0) Mean Corpuscular Volume 74.8 FL (80.0-100.0) Mean Corpuscular Hemoglobin 23.9 PG (27.0-34.0) Mean Corpuscular Hemoglobin Concent 31.9 % (32.0-36.0) Red Cell Distribution Width 21.7 % (11.6-17.2) Platelet Count 463 TH/MM3 (150-450) Neutrophils (%) (Auto) 71.9 % (16.0-70.0) Monocytes (%) (Auto) 8.4 % (0.0-8.0) Blood Urea Nitrogen 26 MG/DL (7-18) Calcium Level 7.8 MG/DL (8.5-10.1) Estimat Glomerular Filtration Rate 59 ML/MIN (>89) 62 ML/MIN (>89) Vancomycin Level Trough 15.7 MCG/ML (5.0-10.0) PE at Discharge GENERAL: SKIN: Warm and dry. see wound notes, HEAD: Atraumatic. Normocephalic. EYES: Pupils equal and round. No scleral icterus. No injection or drainage. ENT: No nasal bleeding or discharge. Mucous membranes pink and moist. NECK: Trachea midline. No JVD. CARDIOVASCULAR: Regular rate and rhythm. RESPIRATORY: No accessory muscle use. Clear to auscultation. Breath sounds equal bilaterally. GASTROINTESTINAL: Abdomen soft, non-tender, nondistended. Hepatic and splenic margins not palpable. MUSCULOSKELETAL: Extremities without clubbing, cyanosis, or edema. No obvious deformities. NEUROLOGICAL: Awake and alert. No obvious cranial nerve deficits. Motor grossly within normal limits. Five out of 5 muscle strength in the arms and legs. Normal speech. PSYCHIATRIC: Appropriate mood and affect; insight and judgment normal. Pt Condition on Discharge: Stable Discharge Disposition: Disch w/ Home Health Serv Discharge Instructions DIET: Follow Instructions for: Heart Healthy Diet Activities you can perform: Weight Bearing as Marilyn Follow up Referrals: Infectious Disease with Evelyn Pena MD PCP Follow-up - 1 Week Podiatry - 1 Month New Medications: Cefazolin Inj (Cefazolin Inj) 2 Gm/50 Ml Bagp 2 GM IV Q8H for Infection for 54 Days, BAG 0 Refills Epinephrine Inj (Epinephrine Inj) 1 Mg/Ml (1 Ml) Inj 0.3 MG IV PUSH ONCE PRN for ALLERGIC REACTION, #1 VIAL Epinephrine Inj (Epinephrine Inj) 1 Mg/Ml (1 Ml) Inj 0.3 MG SQ ONCE PRN for ALLERGIC REACTION, #1 VIAL Give with any signs of respiratory distress. Hydrocortisone Inj (Solu-Cortef Inj) 250 Mg/2 Ml Inj 250 MG IV PUSH ONCE PRN for ALLERGIC REACTION, #1 VIAL 0 Refills Give over 30-60 seconds. Levofloxacin (Levaquin) 750 Mg Tablet 750 MG PO DAILY for Infection for 42 Days, #42 TAB 0 Refills Walker with Front Wheels (Walker with Front Wheels) 1 Mis Mis EA .ROUTE DIRECTED for Infection, #1 1 Refill Continued Medications: Clotrimazole Topical (Anti-Fungal Topical) 1% Cream 1 APPLIC TOPICAL DAILY, #113 GM Insulin NPH (Human) (Isophane) Inj (Novolin N U-100 Inj) 100 Unit/Ml Inj 25 UNIT SQ HS Insulin NPH (Human) (Isophane) Inj (Novolin N U-100 Inj) 100 Unit/Ml Inj 35 UNIT SQ DAILY for Blood Sugar Management Insulin Regular (Human) Concentrate Inj (Humulin R U-500 (Concentrate) Inj) 10, 000 Unit/20 Ml Vial Unknown Dose SQ ACHS for Blood Sugar Management, VIAL 0 Refills Oxycodone (Oxycodone) 10 Mg Tab 10 MG PO Q6H PRN for PAIN, TAB 0 Refills Tamsulosin (Flomax) 0.4 Mg Cap 0.4 MG PO HS for Manage Prostate Problems, #30 CAP 0 Refills Discontinued Medications: Sodium Chloride Flush (Saline Flush) 0.9 % Inj 10 ML IV FLUSH WEEKLY for IV Line Flush, #1 VIAL 0 Refills Tadalafil (Cialis) 5 Mg Tab 5 MG PO DAILY, #30 TAB 0 Refills Do not exceed 1 dose/day. Arthur Cortez MD Jul 10, 2017 09:29
[2017-07-10] MEDS ORDERED: METO25TA3 PO (10:09)
[2017-07-10] MEDS ORDERED: DILT31TA PO (10:10)
[2017-07-10] MEDS ORDERED: LISI2.5T3 PO (10:11)
[2017-07-11] MEDS ORDERED: PHARMACY ORDERED LAB ONE (05:45)
--- NOTE | 2017-07-14 20:41 | MD ---
cc: ARTHUR ENG MD ADMISSION DATE: 07/02/2017 DISCHARGE DATE: 07/10/2017 CONSULTATIONS Critical care management Dr. Caitlin Love Gastrointestinal Infectious Disease - Dr. Wolf Podiatry - Dr. Ann ADMISSION DIAGNOSIS Fever, coughing and congestion and leg pain. DISCHARGE DIAGNOSIS 1. Septic arthritis of the left lower extremity. 2. Diabetic foot ulcer 3. Staph and beta strep bacteremia 4. Anemia 5. Scrotal edema 6. Benign prostatic hypertrophy 7. Hypophosphatemia 8. Hyponatremia 9. Acute on chronic kidney disease stage III 10. Atrial fibrillation 11. Non STEMI 12. Hypertension. 13. respiratory insufficiency 14. chronic narcotic use. HOSPITAL COURSE Luther Lucas is a 57-year-old male whom I see my office. He was admitted with non STEMI and lower extremity osteomyelitis with sepsis. He was seen by numerous consultants and suggested amputation and he was refusing the plan of care. He expected he need be discharged home. He was held another night and they consulted me at this point. A PICC line has been placed and IV recommendations were placed and he is now agreeing to go to a long-term as he states he wants to go out of the hospital now. DISCHARGE MEDICATIONS See my electronic medical record notation. DISPOSITION Discharge to long-term. Case management consult. Wound doctor consultation ____ Arthur Eng MD RP/ /9:28 AM /8:29 PM
== END 2017-07-10 13:15 | DRG 871 ==
LOC: NEPE 20:46 → NEDA 07-02 00:34 → NEDH 07-02 04:34 → HIMN 07-02 12:40
PROVIDERS: ADMIT Internal Medicine Critical Care Medicine; ATTEND Internal Medicine Critical Care Medicine
PROC: 30233N1 Transfusion of Nonautologous Red Blood Cells into Peripheral Vein, Percutaneous Approach (ICD-10-PCS; principal; 2017-07-02)
PROC: 02HV33Z Insertion of Infusion Device into Superior Vena Cava, Percutaneous Approach (ICD-10-PCS; 2017-07-09)
DX: A41.01 Sepsis due to Methicillin susceptible Staphylococcus aureus (principal); E11.00 Type 2 diabetes mellitus with hyperosmolarity without nonketotic hyperglycemic-hyperosmolar coma (NKHHC); I21.4 Non-ST elevation (NSTEMI) myocardial infarction; N17.9 Acute kidney failure, unspecified; I13.0 Hypertensive heart and chronic kidney disease with heart failure and stage 1 through stage 4 chronic kidney disease, or unspecified chronic kidney disease; N18.3 Chronic kidney disease, stage 3 (moderate); I50.9 Heart failure, unspecified; E88.09 Other disorders of plasma-protein metabolism, not elsewhere classified; I27.20 Pulmonary hypertension, unspecified; M86.172 Other acute osteomyelitis, left ankle and foot; M00.9 Pyogenic arthritis, unspecified; E87.1 Hypo-osmolality and hyponatremia; E11.42 Type 2 diabetes mellitus with diabetic polyneuropathy; E11.621 Type 2 diabetes mellitus with foot ulcer; N40.0 Benign prostatic hyperplasia without lower urinary tract symptoms; E11.610 Type 2 diabetes mellitus with diabetic neuropathic arthropathy; Z91.19 Patient's noncompliance with other medical treatment and regimen; E11.65 Type 2 diabetes mellitus with hyperglycemia; L97.519 Non-pressure chronic ulcer of other part of right foot with unspecified severity; I25.5 Ischemic cardiomyopathy; I25.119 Atherosclerotic heart disease of native coronary artery with unspecified angina pectoris; D50.9 Iron deficiency anemia, unspecified; E11.69 Type 2 diabetes mellitus with other specified complication; N50.89 Other specified disorders of the male genital organs; B95.1 Streptococcus, group B, as the cause of diseases classified elsewhere; L97.529 Non-pressure chronic ulcer of other part of left foot with unspecified severity; E83.39 Other disorders of phosphorus metabolism; F41.9 Anxiety disorder, unspecified; I48.91 Unspecified atrial fibrillation; I34.0 Nonrheumatic mitral (valve) insufficiency; Z79.4 Long term (current) use of insulin; Z88.5 Allergy status to narcotic agent
CPT/HCPCS: 36430; 71045; 73630; 73720; 73723; 76937; 78452; 80048; 80053; 80061; 80202; 81001; 82010; 82550; 82552; 82565; 82948; 83036; 83605; 83735; 84100; 84155; 84443; 84484; 85007; 85014; 85018; 85025; 85027; 85610; 85730; 86403; 86850; 86900; 86901; 86920; 87040; 87070; 87077; 87086; 87147; 87186; 87205; 87641; 87804; 93005; 93017; 93306; 93922; 94150; 94640; 94664; 95819; 96361; 96374; 96375; A9502; A9579; C9113; J0295; J1170; J1642; J1644; J1815; J1817; J1885; J1940; J2405; J2543; J2550; J2765; J2785; J3370; J3475; J7030; J7040; J7042; J7050; P9016; Q0169

== ENCOUNTER 2017-07-29 17:03 | Inpatient (IN) | payer MEDICARE, MEDICAID ==
[~2017-07-29] VITALS: Ht 195.6 cm; Wt 116.6 kg
[2017-07-29] VITALS (7 sets, daily range): BP systolic 100–155; BP diastolic 62–95; PULSE 98–103; RESP 16–20; TEMP 96.7–98.4; O2SAT 96–100
[~2017-07-29 17:03] MED LIST changes: +CEFA2SOL IV; -CIAL5TAB PO; +DILT31TA PO; +EPIN1INJ21 IV PUSH; +EPIN1INJ21 SQ; -HEPA100I8 IV; +LEVA750T9 PO; +LISI2.5T3 PO; +METO25TA3 PO; -NSFLUSH5 IV FLUSH; +SOLU250I IV PUSH; +WALKER WHEELS/F1 MIS
--- NOTE | 2017-07-29 18:03 | RADRPT ---
EXAM DATE/TIME: 07/29/2017 17:43 [facility] COMPARISON: CHEST SINGLE AP, July 09, 2017, 14:37. INDICATIONS : Palpitations MEDICAL HISTORY : Myocardial infarction. Congestive heart failure. Hypertension. Diabetes mellitus type 2. SURGICAL HISTORY : Appendectomy. ENCOUNTER: Initial ACUITY: 1 day PAIN SCORE: 2/10 LOCATION: Bilateral chest FINDINGS: Right arm PICC line is present good position with tip overlying SVC. There is slight parenchymal opac ities the lateral left lung base and blunting of the costophrenic angle indicating mild parenchymal d isease and small effusion. This is slightly improved. Minimal blunting of right costophrenic angle is also noted in cardiomediastinal structures are stable. There are degenerative changes in the spine. CONCLUSION: Small bilateral effusions and slight persistent parenchymal opacity at the left lung base. Drake Espinal MD on July 29, 2017 at 17:59 Board Certified Radiologist. This report was verified electronically.
[2017-07-29 18:06] LABS: AUTOMATED NEUTROPHIL # 11.2 TH/MM3 (1.8-7.7); BASOPHIL % 0.1 % (0.0-2.0); EOSINOPHIL % 0.1 % (0.0-4.0); HEMATOCRIT 21.4 % (39.0-51.0); HEMOGLOBIN 7.2 GM/DL (13.0-17.0); LYMPH % 10.5 % (9.0-44.0); LYMPHOCYTE # 1.4 TH/MM3 (1.0-4.8); MEAN CELL VOLUME 71.7 FL (80.0-100.0); MEAN CORPUSCULAR HGB CONC 33.5 % (32.0-36.0); MEAN PLATELET VOLUME 6.9 FL (7.0-11.0); MONOCYTE # 1.1 TH/MM3 (0-0.9); NEUT % 81.3 % (16.0-70.0); PLATELET COUNT 532 TH/MM3 (150-450); RED BLOOD COUNT 2.98 MIL/MM3 (4.50-5.90); RED CELL DISTRIBUTION WIDTH 21.9 % (11.6-17.2); WHITE BLOOD COUNT 13.7 TH/MM3 (4.0-11.0)
[2017-07-29 18:16] LABS: INTERNATIONAL NORMALIZED RATIO 1.8 RATIO; PROTHROMBIN TIME - PATIENT 18.7 SEC (9.8-11.6)
[2017-07-29 18:30] LABS: ALBUMIN 2.2 GM/DL (3.4-5.0); AST (GOT) 389 U/L (15-37); BICARBONATE 21.6 MEQ/L (21.0-32.0); BLOOD UREA NITROGEN 51 MG/DL (7-18); CALCIUM 8.4 MG/DL (8.5-10.1); CHLORIDE 95 MEQ/L (98-107); CREATININE 1.69 MG/DL (0.60-1.30); GLOMERULAR FILTRATION RATE 42 ML/MIN (>89); GLUCOSE,RANDOM 55 MG/DL (74-106); MAGNESIUM 1.7 MG/DL (1.5-2.5); SODIUM (NA) 129 MEQ/L (136-145)
[2017-07-29 18:31] LABS: ALT (GPT) 84 U/L (12-78)
[2017-07-29 18:35] LABS: ALKALINE PHOSPHATASE 408 U/L (45-117); TOTAL BILIRUBIN ADULT 0.4 MG/DL (0.2-1.0); TOTAL PROTEIN 6.9 GM/DL (6.4-8.2)
[2017-07-29 18:42] LABS: TROPONIN I 1.74 NG/ML (0.02-0.05)
[2017-07-29] MEDS ORDERED: ISOS30TA3 PO (19:09)
[2017-07-29] MEDS ORDERED: POTA10TA2 PO (19:09)
[2017-07-29] MEDS ORDERED: NITR0.4S SL (19:09)
[2017-07-29] MEDS ORDERED: FURO1TAB60 PO (19:09)
[2017-07-29] MEDS ORDERED: PROM25TA10 PO (19:09)
[2017-07-29] MEDS ORDERED: ACET-822 PO (19:10)
--- NOTE | 2017-07-29 19:13 | PD ---
HPI Chief Complaint: GI Complaint Time Seen by Provider: 19:03 Travel History International Travel<30 days: No Contact w/Intl Traveler<30days: No Traveled to known affect area: No History of Present Illness HPI pt is a 57 yr old male who had recent NON STEMI , admited and then to rehab , for the last few days having CP at home and Nausea vomit unable to keep anything down, pt has taken nitro with releif of CP when he was in Rehab five days ago. , now home and having N/V and CP trop todau is 1.74 . Pt has leg swelling left and also has hx of anemia was transfused on recent admission , today HCT 21 , No complaints of Resp Distress no signs of active infarct. EKG has V 4-5 flipped T wave with mild depressions PFSH Past Medical History Cancer: No Cardiac Catheterization: Yes Cardiovascular Problems: Yes Diabetes: Yes Patient Takes Glucophage: No Diminished Hearing: No Endocrine: Yes Genitourinary: No Immune Disorder: No Musculoskeletal: Yes Neurologic: No Psychiatric: No Reproductive: No Respiratory: No Integumentary: Yes Tetanus Vaccination: < 5 Years Influenza Vaccination: No Past Surgical History Abdominal Surgery: Yes (APPENDIX, HERNIA REPAIR) Cardiac Surgery: Yes (CARDIAC STENT ) Coronary Stent: Yes Oral Surgery: Yes (TONSILLECTOMY) Other Surgery: Yes Social History Alcohol Use: Yes (rarely) Tobacco Use: No Substance Use: No Allergies-Medications (Allergen,Severity, Reaction): Coded Allergies: codeine (Verified Allergy, Severe, Cardiac arrest, 07/29/17) PT REPORT HIS HEART STOP AFTER *MDRO Multi-Drug Resistant Organism (Verified Adverse Reaction, Unknown, ) 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 Solu-Cortef Inj (Hydrocortisone Sodium Succinate) 250 Mg/2 Ml Inj 250 Mg IV PUSH ONCE PRN Give over 30-60 seconds. Flomax (Tamsulosin HCl) 0.4 Mg Cap 0.4 Mg PO HS Reported Tylenol Extra Strength (Acetaminophen) 500 Mg Tablet 500-1,000 Mg PO Q6HR PRN Potassium Chloride ER (Potassium Chloride) 10 Meq Tab 10 Meq PO BID Give with Lasix Phenergan (Promethazine HCl) 25 Mg Tablet 25 Mg PO Q6H PRN Lasix (Furosemide) 40 Mg Tab 40 Mg PO BID Nitrostat SL (Nitroglycerin) 0.4 Mg Subl 0.4 Mg SL DIRECTED PRN 1 tablet under the tongue as needed for chest pain. Repeat every 5 minutes for a total of 3 DOSES or call 911 if NO relief. Isosorbide Mononitrate ER (Isosorbide Mononitrate) 30 Mg Terry 30 Mg PO DAILY Lisinopril 2.5 Mg Tab 2.5 Mg PO DAILY Cardizem (Diltiazem HCl) 30 Mg Tab 30 Mg PO QID Metoprolol Tartrate 25 Mg Tab 12.5 Mg PO BID Oxycodone (Oxycodone HCl) 10 Mg Tab 10 Mg PO Q6H PRN Anti-Fungal Topical (Clotrimazole) 1% Cream 1 Applic TOPICAL DAILY Novolin N U-100 Inj (Insulin NPH (Human) (Isophane) Inj) 100 Unit/Ml Inj 35 Unit SQ DAILY Novolin N U-100 Inj (Insulin NPH (Human) (Isophane) Inj) 100 Unit/Ml Inj 25 Unit SQ HS Humulin R U-500 (Concentrate) Inj (Insulin Regular (Human) Concentrate Inj) 10, 000 Unit/20 Ml Vial Unknown Dose SQ ACHS Review of Systems Except as stated in HPI: all other systems reviewed are Neg Cardiovascular: Positive: Chest Pain or Discomfort Gastrointestinal: Positive: Nausea, Vomiting Physical Exam Narrative GENERAL: non toxic no acute distress not diaphoretic SKIN: Warm and dry. HEAD: Atraumatic. Normocephalic. EYES: Pupils equal and round. No scleral icterus. No injection or drainage. ENT: No nasal bleeding or discharge. Mucous membranes pink and moist. NECK: Trachea midline. No JVD. CARDIOVASCULAR: Regular rate and rhythm. RESPIRATORY: No accessory muscle use. Clear to auscultation. Breath sounds equal bilaterally. GASTROINTESTINAL: Abdomen soft, non-tender, nondistended. Hepatic and splenic margins not palpable. GUIAC RECTAL BROWN STOOL Guiac Negative MUSCULOSKELETAL: Extremities left foot in a walking boot and deformed ankle and foot swelling NEUROLOGICAL: Awake and alert. No obvious cranial nerve deficits. Motor grossly within normal limits. Five out of 5 muscle strength in the arms and legs. Normal speech. PSYCHIATRIC: Appropriate mood and affect; insight and judgment normal. Data Data Last Documented VS Vital Signs Date Time Temp Pulse Resp B/P (MAP) Pulse Ox O2 Delivery O2 Flow Rate FiO2 07/29/17 20:05 98 18 105/67 (80) 100 Nasal Cannula 2.00 07/29/17 18:53 97.8 Orders Orders Electrocardiogram (07/29/17 17:10) Complete Blood Count With Diff (07/29/17 17:10) Comprehensive Metabolic Panel (07/29/17 17:10) Magnesium (Mg) (07/29/17 17:10) Ckmb (Isoenzyme) Profile (07/29/17 17:10) Troponin I (07/29/17 17:10) Act Partial Throm Time (Ptt) (07/29/17 17:10) Prothrombin Time / Inr (Pt) (07/29/17 17:10) Urinalysis - C+S If Indicated (07/29/17 17:10) Chest, Pa & Lat (07/29/17 17:10) Aspirin Chew (Aspirin Chew) (07/29/17 19:15) Ckmb (Isoenzyme) Profile (07/29/17 19:06) Troponin I (07/29/17 19:06) Lipase (07/29/17 19:06) Heparin Inj (Heparin Inj) (07/29/17 19:15) Heparin Inj (Heparin Inj) (07/30/17 01:15) Heparin Inj (Heparin Inj) (07/30/17 01:15) Heparin-D5w 25,000 U/250 Ml (Heparin-D5w (07/29/17 19:15) Act Partial Throm Time (Ptt) (07/29/17 19:10) Prothrombin Time / Inr (Pt) (07/29/17 19:10) Cbc No Diff, Includes Plts (07/29/17 19:10) Cbc No Diff, Includes Plts (08/01/17 06:00) Act Partial Throm Time (Ptt) (07/30/17 02:10) Occult Blood (Hemoccult) Stool (07/29/17 19:10) Ondansetron Inj (Zofran Inj) (07/29/17 19:15) Nitroglycerin 2% Oint (Nitroglycerin 2% (07/29/17 19:30) Cefazolin 2 Gm Premix (Ancef 2 Gm Premix (07/29/17 19:30) Type And Screen (07/29/17 19:27) Red Blood Cells (Rbc) (07/29/17 19:27) Pantoprazole Inj (Protonix Inj) (07/29/17 19:45) Admit Order (Ed Use Only) (07/29/17 20:16) Labs Laboratory Tests Test 07/29/17 17:25 07/29/17 19:15 White Blood Count 13.7 TH/MM3 13.9 TH/MM3 Red Blood Count 2.98 MIL/MM3 3.03 MIL/MM3 Hemoglobin 7.2 GM/DL 7.1 GM/DL Hematocrit 21.4 % 21.7 % Mean Corpuscular Volume 71.7 FL 71.5 FL Mean Corpuscular Hemoglobin 24.0 PG 23.3 PG Mean Corpuscular Hemoglobin Concent 33.5 % 32.6 % Red Cell Distribution Width 21.9 % 21.8 % Platelet Count 532 TH/MM3 540 TH/MM3 Mean Platelet Volume 6.9 FL 7.0 FL Neutrophils (%) (Auto) 81.3 % Lymphocytes (%) (Auto) 10.5 % Monocytes (%) (Auto) 8.0 % Eosinophils (%) (Auto) 0.1 % Basophils (%) (Auto) 0.1 % Neutrophils # (Auto) 11.2 TH/MM3 Lymphocytes # (Auto) 1.4 TH/MM3 Monocytes # (Auto) 1.1 TH/MM3 Eosinophils # (Auto) 0.0 TH/MM3 Basophils # (Auto) 0.0 TH/MM3 CBC Comment DIFF FINAL Differential Comment Prothrombin Time 18.7 SEC 18.2 SEC Prothromb Time International Ratio 1.8 RATIO 1.8 RATIO Activated Partial Thromboplast Time 31.1 SEC 27.7 SEC Blood Urea Nitrogen 51 MG/DL Creatinine 1.69 MG/DL Random Glucose 55 MG/DL Total Protein 6.9 GM/DL Albumin 2.2 GM/DL Calcium Level 8.4 MG/DL Magnesium Level 1.7 MG/DL Alkaline Phosphatase 408 U/L Aspartate Amino Transf (AST/SGOT) 389 U/L Alanine Aminotransferase (ALT/SGPT) 84 U/L Total Bilirubin 0.4 MG/DL Sodium Level 129 MEQ/L Potassium Level 4.3 MEQ/L Chloride Level 95 MEQ/L Carbon Dioxide Level 21.6 MEQ/L Anion Gap 12 MEQ/L Estimat Glomerular Filtration Rate 42 ML/MIN Total Creatine Kinase 66 U/L 62 U/L Troponin I 1.74 NG/ML 1.99 NG/ML Lipase 139 U/L MDM Medical Decision Making Medical Screen Exam Complete: Yes Emergency Medical Condition: Yes Differential Diagnosis ACS inprogress vs recent TX NON STEMI, vs GERD vs pneumoniua. pt HCT 21 and Trop 1.74 , immediately given ASA 162 and heparin bolus and drip after GUIAC negative brown stool. Pt admited to [facility] and transfused 2 Units PRBC Narrative Course pt HCT 21 and Trop 1.74 , immediately given ASA 162 and heparin bolus and drip after GUIAC negative brown stool. Pt admited to [facility] and transfused 2 Units PRBC Critical Care Narrative CC time 45 minutes blood resusitation and heparinization to prevent further ischemia to Coronary arteries and transfused to prevent anoxic injury to myocardiaum, Guaic eval for acute GI bleed ( which was negative ) admit to appropriate services Diagnosis Primary Impression: Elevated troponin Additional Impressions: Anemia Qualified Codes: D64.9 - Anemia, unspecified NSTEMI (non-ST elevation myocardial infarction) Cuate Ledesma MD Jul 29, 2017 19:13
[2017-07-29] MEDS ORDERED: ASPIRIN 81 MG CHEW TAB CHEW ONE (19:15)
[2017-07-29] MEDS ORDERED: ONDANSETRON HCL 4 MG/2 ML VIAL IV PUSH ONE (19:15)
[2017-07-29] MEDS ORDERED: HEPARIN SODIUM - IV 10,000 UNITS/10 ML VIAL IV PUSH ONE (19:15)
[2017-07-29] MEDS ORDERED: HEPARIN-D5W 25,000 U/250 ML 250 ML IV PRN (19:15)
[2017-07-29] MEDS ORDERED: NITROGLYCERIN 2% OINT 1 GM PACKET TOPICAL ONE (19:30)
[2017-07-29] MEDS ORDERED: ceFAZolin 2 GM PREMIX 50 ML IV ONE (19:30)
[2017-07-29] MEDS ORDERED: PANTOPRAZOLE SODIUM 40 MG VIAL IV PUSH ONE (19:45)
[2017-07-29 20:14] LABS: HEMATOCRIT 21.7 % (39.0-51.0); HEMOGLOBIN 7.1 GM/DL (13.0-17.0); MEAN CELL VOLUME 71.5 FL (80.0-100.0); MEAN CORPUSCULAR HEMOGLOBIN 23.3 PG (27.0-34.0); MEAN CORPUSCULAR HGB CONC 32.6 % (32.0-36.0); PLATELET COUNT 540 TH/MM3 (150-450); RED BLOOD COUNT 3.03 MIL/MM3 (4.50-5.90); RED CELL DISTRIBUTION WIDTH 21.8 % (11.6-17.2); WHITE BLOOD COUNT 13.9 TH/MM3 (4.0-11.0)
[2017-07-29] MEDS ORDERED: BISACODYL 10 MG SUPP RECTAL PRN (20:30)
[2017-07-29] MEDS ORDERED: LORazepam 0.5 MG TAB PO PRN (20:30)
[2017-07-29] MEDS ORDERED: SODIUM CHLORIDE 0.9% FLUSH 10 ML FLUSH IV FLUSH PRN (20:30)
[2017-07-29] MEDS ORDERED: SENNOSIDES 8.6 MG TAB PO PRN (20:30)
[2017-07-29] MEDS ORDERED: TEMAZEPAM 15 MG CAP PO PRN (20:30)
[2017-07-29] MEDS ORDERED: MAGNESIUM HYDROXIDE SUSP 30 ML CUP PO PRN (20:30)
[2017-07-29] MEDS ORDERED: cloNIDine HCL 0.1 MG TAB PO PRN (20:30)
[2017-07-29] MEDS ORDERED: LACTULOSE SYRUP 20 GM/30 ML CUP PO PRN (20:30)
[2017-07-29] MEDS ORDERED: NALOXONE HCL 0.4 MG/ML AMP IV PUSH PRN (20:30)
[2017-07-29] MEDS ORDERED: PILL SPLITTER OTHER PRN (20:30)
[2017-07-29] MEDS ORDERED: DEXTROSE 50% IN WATER 50 ML VIAL(D50) IV PUSH PRN (20:45)
[2017-07-29] MEDS ORDERED: GLUCAGON 1 MG/ML VIAL OTHER PRN (20:45)
[2017-07-29 20:47] LABS: TROPONIN I 1.99 NG/ML (0.02-0.05)
[2017-07-29 20:50] LABS: INTERNATIONAL NORMALIZED RATIO 1.8 RATIO; PROTHROMBIN TIME - PATIENT 18.2 SEC (9.8-11.6)
[2017-07-29] MEDS: INSULIN ASPART SUPPLEMENTAL SCALE SQ SCH (21:00)
[2017-07-29] MEDS ORDERED: LEVOFLOXACIN 750 MG PREMIX INJ 150 ML IV SCH (21:00)
[2017-07-29] MEDS: METOPROLOL TARTRATE 25 MG TAB PO SCH (21:00)
[2017-07-29] MEDS: DILTIAZEM HCL 30 MG TAB PO SCH (21:00)
[2017-07-29] MEDS: POTASSIUM CHLORIDE 10 MEQ CONTROLLED RELEASE TAB PO SCH (21:58)
[2017-07-29] MEDS: SODIUM CHLORIDE 0.9% FLUSH 10 ML FLUSH IV FLUSH SCH (21:58)
[2017-07-29] MEDS: FUROSEMIDE 40 MG TAB PO SCH (21:59)
[2017-07-29] MEDS: HYDROmorphone HCL PF 2 MG/ML VIAL IV PRN (22:13)
[2017-07-29] MEDS: DOCUSATE SODIUM 50 MG/SENNA 8.6 MG TAB PO SCH (22:52)
[2017-07-29] MEDS: TAMSULOSIN HCL 0.4 MG CAP PO SCH (22:52)
[2017-07-29] MEDS: ONDANSETRON HCL 4 MG/2 ML VIAL IVP PRN (22:52)
[2017-07-29] MEDS: NITROGLYCERIN 2% OINT 1 GM PACKET TOPICAL SCH (23:03)
[2017-07-30] VITALS (26 sets, daily range): BP systolic 119–143; BP diastolic 79–97; PULSE 87–104; RESP 12–20; TEMP 95.7–97; O2SAT 95–100
[2017-07-30] MEDS ORDERED: HEPARIN SODIUM - IV 10,000 UNITS/10 ML VIAL IV PUSH PRN ×2 (01:15)
[2017-07-30] MEDS: HYDROmorphone HCL PF 2 MG/ML VIAL IV PRN ×4 (04:11→19:06)
[2017-07-30 04:38] LABS: AUTOMATED NEUTROPHIL # 10.7 TH/MM3 (1.8-7.7); BASOPHIL % 0.1 % (0.0-2.0); EOSINOPHIL % 0.1 % (0.0-4.0); HEMOGLOBIN 7.7 GM/DL (13.0-17.0); LYMPH % 8.8 % (9.0-44.0); LYMPHOCYTE # 1.1 TH/MM3 (1.0-4.8); MEAN CELL VOLUME 73.1 FL (80.0-100.0); MEAN CORPUSCULAR HEMOGLOBIN 24.3 PG (27.0-34.0); MEAN CORPUSCULAR HGB CONC 33.3 % (32.0-36.0); MEAN PLATELET VOLUME 6.6 FL (7.0-11.0); MONO % 5.3 % (0.0-8.0); MONOCYTE # 0.7 TH/MM3 (0-0.9); NEUT % 85.7 % (16.0-70.0); PLATELET COUNT 390 TH/MM3 (150-450); RED BLOOD COUNT 3.15 MIL/MM3 (4.50-5.90); RED CELL DISTRIBUTION WIDTH 22.2 % (11.6-17.2); WHITE BLOOD COUNT 12.5 TH/MM3 (4.0-11.0)
[2017-07-30 05:12] LABS: BICARBONATE 23.3 MEQ/L (21.0-32.0); CALCIUM 8.2 MG/DL (8.5-10.1); CREATININE 1.68 MG/DL (0.60-1.30)
[2017-07-30] MEDS: NITROGLYCERIN 2% OINT 1 GM PACKET TOPICAL SCH ×3 (05:25→18:00)
[2017-07-30] MEDS: INSULIN ASPART SUPPLEMENTAL SCALE SQ SCH ×4 (08:00→21:00)
[2017-07-30] MEDS: SODIUM CHLORIDE 0.9% FLUSH 10 ML FLUSH IV FLUSH SCH ×2 (09:00→21:35)
[2017-07-30] MEDS: LISINOPRIL 5 MG TAB PO SCH (09:19)
[2017-07-30] MEDS: DOCUSATE SODIUM 50 MG/SENNA 8.6 MG TAB PO SCH ×2 (09:19→21:36)
[2017-07-30] MEDS: DILTIAZEM HCL 30 MG TAB PO SCH ×2 (09:19→13:03)
[2017-07-30] MEDS: POTASSIUM CHLORIDE 10 MEQ CONTROLLED RELEASE TAB PO SCH ×2 (09:20→21:35)
[2017-07-30] MEDS: FUROSEMIDE 40 MG TAB PO SCH ×2 (09:20→21:36)
[2017-07-30] MEDS: METOPROLOL TARTRATE 25 MG TAB PO SCH (09:20)
[2017-07-30] MEDS: ONDANSETRON HCL 4 MG/2 ML VIAL IVP PRN ×3 (09:25→21:34)
[2017-07-30] MEDS: oxyCODONE/ACETAMINOPHEN 10 MG/325 MG TAB PO PRN (13:03)
[2017-07-30] MEDS: SODIUM CHLOR 0.9% 1000 ML INJ 1,000 ML IV SCH (13:15)
--- NOTE | 2017-07-30 13:22 | MH ---
cc: ARTHUR ENG DATE OF ADMISSION 07/29/2017 CHIEF COMPLAINT Weakness, vomiting and dehydration. HISTORY OF PRESENT ILLNESS Luther is an unfortunate 57-year-old male who was recently discharged to [facility] after having had a non-STEMI here and recommendations were for amputation of his leg. He declined that and went to the [facility]. He was discharged from there and came into my office yesterday and was vomiting and tachypneic. I had him go to emergency room. I was called by the emergency room doctor with a report of elevated troponin and recurrent vomiting. He was given aspirin and started on a heparin drip. He was immediately ordered transfusion. The patient has had ongoing vomiting and we spoke with the nursing staff regarding his care. PAST MEDICAL HISTORY 1. Septic arthritis in the left lower extremity 2. Diabetic foot ulcer 3. Staph and beta strep bacteremia 4. Anemia 5. Scrotal edema 6. BPH 7. Hypophosphatemia 8. Hyponatremia 9. Acute on chronic kidney disease stage III 10. A. Fib 11. Non-STEMI 12. Hypertension 13. Respiratory insufficiency 14. Chronic narcotic usage for chronic pain. PAST SURGICAL HISTORY 1. Appendectomy 2. Cardiac stent 3. Tonsillectomy SOCIAL HISTORY No alcohol, tobacco or illicit drug usage. ALLERGIES CODEINE HOME MEDICATIONS 1. Levaquin 2. Solu-Cortef IV 3. Tylenol 4. Potassium 5. Phenergan 6. Lasix 7. Nitroglycerin p.r.n. 8. Imdur 9. Lisinopril 10. Cardizem 11. Metoprolol 12. Oxycodone 10 mg q. six p.r.n. 13. Clotrimazole 14. Humulin-N and sliding scale 15. Humulin-R sliding scale REVIEW OF SYSTEMS Weakness, vomiting, increased pain in his back and leg wounds negative 14-point review of systems otherwise and limited as he has become a poor historian due to his current illness. LABORATORY DATA WBCs 12.5, hemoglobin 7.2 yesterday. Sodium 127, creatinine 1.68, troponin 2.43, calcium 8.2, INR 1.8. IMAGING STUDIES Chest x-ray shows small bilateral pleural effusions and parenchymal opacity of the left lung. ASSESSMENT/PLAN 1. Vomiting is unknown etiology possibly secondary to gastritis or from current illnesses below. 2. Non-ST elevation ND: Nitroglycerin paste, heparin drip consult cardiology and O2 and pain control. 3. Diabetic ulcers 4. Septic arthritis in the left lower extremity. IV Levaquin and Vancomycin, consult ID. 5. Recent staph and beta strep bacteremia. 6. Anemia of chronic disease 6, Chronic kidney disease stage III 7. Atrial fibrillation 8. Hypertension Inpatient admission for vomiting, dehydration, non-STEMI and septic arthritis of the left lower extremity. We will wait consultations from cardiology, infectious disease and have wound ostomy dressing to his left lower extremity. He will need to continue on IV fluids and close monitoring on the heparin drip for now and being that he has required transfusion, we will occult stools. GI prophylaxis, IV Protonix. DISPOSITION Likely discharge back to the [facility] if the patient survives as he has refused amputation of the leg. Arthur Eng MD RP/[place] /12:50 PM /1:02 PM
[2017-07-30] MEDS ORDERED: MORPHINE SULFATE 8 MG/ML INJ IV PUSH ONE (14:00)
--- NOTE | 2017-07-30 14:36 | PD.CONS ---
HPI History of Present Illness This is a 57 year old male who presented with NSTEMI and vomiting. He has been having frequent non-bloody vomiting for the last 5 days. Admits abd bloating as well and no BM in the last 4 days. Denies having flatus. He denies diarrha, abd pain, fevers, rectal bleeding, black tarry stool. ON a recent admission he did reportedly have hematemesis. Never had EGD or colonoscopy. 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 Family History [place] DM Social History no toxic habits (Luisa Olvera) Review of Systems Constitutional: DENIES: Fever Endocrine: DENIES: Polydipsia Eyes: DENIES: Blurred vision Ears, nose, mouth, throat: DENIES: Hearing loss Respiratory: DENIES: Cough Cardiovascular: COMPLAINS OF: Chest pain Gastrointestinal: COMPLAINS OF: Constipation, Nausea, Vomiting, DENIES: Abdominal pain, Black stools, Bloody stools, Hematemesis Genitourinary: DENIES: Hematuria Musculoskeletal: DENIES: Joint Swelling Integumentary: DENIES: Pruritus Hematologic/lymphatic: DENIES: Bruising Neurologic: DENIES: Headache Psychiatric: DENIES: Confusion (Luisa Olvera) GI Exam Vitals I&O Vital Signs Date Time Temp Pulse Resp B/P (MAP) Pulse Ox O2 Delivery O2 Flow Rate FiO2 07/30/17 12:00 94 07/30/17 11:00 97.0 90 17 139/97 (111) 100 07/30/17 11:00 96 07/30/17 10:00 94 07/30/17 09:00 96 07/30/17 08:00 93 07/30/17 07:00 97.0 90 17 139/97 (111) 100 07/30/17 07:00 90 07/30/17 06:00 96 07/30/17 05:00 90 07/30/17 04:58 96.4 90 12 143/93 100 07/30/17 04:53 96.7 92 12 136/92 100 07/30/17 04:47 96.7 94 12 137/87 100 07/30/17 04:00 98 07/30/17 03:00 95.7 87 16 119/84 (96) 100 07/30/17 03:00 88 07/30/17 02:00 90 07/30/17 01:40 96.5 90 14 139/87 07/30/17 01:40 96.5 90 14 139/87 100 07/30/17 01:35 96.3 94 16 136/88 100 07/30/17 01:30 96.7 93 16 135/86 95 07/30/17 01:00 92 07/30/17 00:00 95 07/29/17 23:00 96.7 103 16 128/89 (102) 100 07/29/17 22:46 100 20 105/62 (76) 99 Nasal Cannula 2.00 07/29/17 21:00 98 18 100/67 (78) 100 Nasal Cannula 2.00 07/29/17 20:31 96 Nasal Cannula 2.00 07/29/17 20:05 98 18 105/67 (80) 100 Nasal Cannula 2.00 07/29/17 18:53 97.8 98 18 120/73 (89) 99 Room Air 07/29/17 18:53 20 07/29/17 17:04 98.4 103 20 155/95 (115) 98 Room Air I/O 07/29/17 07/29/17 07/29/17 07/30/17 07/30/17 07/30/17 07:00 15:00 23:00 07:00 15:00 23:00 Intake Total 1830 ml 450 ml Output Total 500 ml Balance 1330 ml 450 ml Intake Oral 480 ml Packed Cells 400 ml 400 ml Blood Product IV Normal Saline Flush 950 ml 50 ml Output Urine Total 500 ml Imaging Last Impressions Chest X-Ray 07/29/17 1710 Signed Impressions: Service Date/Time: Saturday, July 29, 2017 17:43 - CONCLUSION: Small bilateral effusions and slight persistent parenchymal opacity at the left lung base. Drake Espinal MD Laboratory Test 07/29/17 17:25 2/7/18 19:15 07/30/17 04:30 07/30/17 08:00 White Blood Count 13.7 TH/MM3 13.9 TH/MM3 12.5 TH/MM3 Red Blood Count 2.98 MIL/MM3 3.03 MIL/MM3 3.15 MIL/MM3 Hemoglobin 7.2 GM/DL 7.1 GM/DL 7.7 GM/DL Hematocrit 21.4 % 21.7 % 23.0 % Mean Corpuscular Volume 71.7 FL 71.5 FL 73.1 FL Mean Corpuscular Hemoglobin 24.0 PG 23.3 PG 24.3 PG Mean Corpuscular Hemoglobin Concent 33.5 % 32.6 % 33.3 % Red Cell Distribution Width 21.9 % 21.8 % 22.2 % Platelet Count 532 TH/MM3 540 TH/MM3 390 TH/MM3 Mean Platelet Volume 6.9 FL 7.0 FL 6.6 FL Neutrophils (%) (Auto) 81.3 % 85.7 % Lymphocytes (%) (Auto) 10.5 % 8.8 % Monocytes (%) (Auto) 8.0 % 5.3 % Eosinophils (%) (Auto) 0.1 % 0.1 % Basophils (%) (Auto) 0.1 % 0.1 % Neutrophils # (Auto) 11.2 TH/MM3 10.7 TH/MM3 Lymphocytes # (Auto) 1.4 TH/MM3 1.1 TH/MM3 Monocytes # (Auto) 1.1 TH/MM3 0.7 TH/MM3 Eosinophils # (Auto) 0.0 TH/MM3 0.0 TH/MM3 Basophils # (Auto) 0.0 TH/MM3 0.0 TH/MM3 CBC Comment DIFF FINAL DIFF FINAL Differential Comment Prothrombin Time 18.7 SEC 18.2 SEC Prothromb Time International Ratio 1.8 RATIO 1.8 RATIO Activated Partial Thromboplast Time 31.1 SEC 27.7 SEC 29.9 SEC Blood Urea Nitrogen 51 MG/DL 53 MG/DL Creatinine 1.69 MG/DL 1.68 MG/DL Random Glucose 55 MG/DL 165 MG/DL Total Protein 6.9 GM/DL Albumin 2.2 GM/DL Calcium Level 8.4 MG/DL 8.2 MG/DL Magnesium Level 1.7 MG/DL Alkaline Phosphatase 408 U/L Aspartate Amino Transf (AST/SGOT) 389 U/L Alanine Aminotransferase (ALT/SGPT) 84 U/L Total Bilirubin 0.4 MG/DL Sodium Level 129 MEQ/L 127 MEQ/L Potassium Level 4.3 MEQ/L 4.6 MEQ/L Chloride Level 95 MEQ/L 94 MEQ/L Carbon Dioxide Level 21.6 MEQ/L 23.3 MEQ/L Anion Gap 12 MEQ/L 10 MEQ/L Estimat Glomerular Filtration Rate 42 ML/MIN 42 ML/MIN Total Creatine Kinase 66 U/L 62 U/L Troponin I 1.74 NG/ML 1.99 NG/ML 2.43 NG/ML Lipase 139 U/L Test 07/30/17 11:00 Activated Partial Thromboplast Time 30.9 SEC Date/Time Source Procedure Growth Status 07/30/17 01:15 Blood Peripheral Aerobic Blood Culture Pending Received 07/30/17 01:15 Blood Peripheral Anaerobic Blood Culture Pending Received Physical Examination HEENT: PERRL; normocephalic; atraumatic; no jaundice. CHEST: CTA CARDIAC: RRR ABDOMEN: semifirm, distended, nontender; no hepatosplenomegaly; bowel sounds soft EXTREMITIES: No clubbing, cyanosis, + BLE edema. SKIN: pale; no rash; no jaundice. LYE BATH OPERATOR: No focal deficits; alert and oriented times three. (Luisa Olvera) Assessment and Plan Plan ASSESSMENT - vomiting - frequent vomiting for 5 days. unclear etiology...2/2 NSTEMI vs constipation vs obstruction vs ileus vs gastritis - anemia - microcytic, hypochromic, no obvious bleeding although he did have hematemesis at recent admission s/p2 x PRBC. INR 1.8 never had EGD or colonoscopy - elevated troponins - cardiology consult pending PLAN - NPO - EGD with cardiac clearance - stat KUB - NGT to LIWS - NPO for now - monitor labs - transfuse as needed - supportive care pt seen by myself and Dr Michel and this note is written on his behalf (Luisa Olvera) Physician Comments seen, examined agree with above npo except medications ngt to suction abdominal x-ray (Rachel Michel MD) Luisa Olvera Jul 30, 2017 14:36 Rachel Michel MD Jul 30, 2017 16:23
[2017-07-30] MEDS: MORPHINE SULFATE 8 MG/ML INJ IV PUSH PRN ×2 (14:40→22:03)
--- NOTE | 2017-07-30 16:30 | PD.WCN.NOT ---
Wound Consult Description: Wound consult ordered by for Left foot Communicated with: Alberto CHAWLA 2end floor [facility], Recommendation: 1) Cleanse Left lower extremity with normal saline pat dry. 2) Apply Calcium alginate cut in strips to wound base and pack in all tunnels. 3) Apply Calazime to periwound cover with dry dressing change every 3 day or as needed for exudate/dislodgement. 4) [place] intact eschar with povidone iodine daily leave open to air. 5) Consult Podiatry for further evaluation. Additional Information: Patient seen today on 2end floor [facility] for left foot by junior technical writer and Alberto CHAWLA [facility].Patient alert and oriented x3.Currently laying in bed with no complaints of distress or discomfort.Main complaint is nausea and vomiting.Assessment finding of lower extremities patient has deformation to bilateral lower extremities no open areas noted on R foot .Left foot presents with 3 open areas that are diabetic ulcerations. Left Lateral Malleolus measures2.4cm x 4.7cm x 1.3cm with tunnels noted @ 9 O'clock with depth of 3.1cm and 3 O'clock with depth of 4.6cm.Wound base is ~80 yellow slough ~10% black narcosis and ~10% white tissue .Large amount of Serosanguineous drainage noted with faint odor present.Induration extends ~ 2.0cm circumferential with erythema extending ~ 2.5cm circumferential.All wound cleansed with normal saline Calazime applied to periwound calcium alginate cut in strips packed in both tunnels and covering wound base secured with dry boarder dressing sign and dated.Left lateral foot has a 3.0cm x 2.3cm x 0.4cm dry pink tissue wound base with no drainage or odor noted erythema noted ~0.5cm circumferential.Calazime applied to wound base and periwound covered with dry boarder gauze. Left medial foot has a 2.2cm x 1.2cm x intact stable eschar no drainage odor noted .Eschar painted with povidone iodine and left open to air.Patient has had multiple diabetic ulcers and would possibly benefit from podiatry consult. Eboni Zepeda [facility] Jul 30, 2017 16:30
--- NOTE | 2017-07-30 16:36 | RADRPT ---
EXAM DATE/TIME: 07/30/2017 14:48 [place] COMPARISON: No previous studies available for comparison. INDICATIONS : Vomiting x 4 days MEDICAL HISTORY : Hypertension. Diabetes mellitus type II. SURGICAL HISTORY : Appendix removed many years ago. ENCOUNTER: Initial ACUITY: 1 day PAIN SCORE: 0/10 LOCATION: Bilateral abdomen FINDINGS: There is no evidence of bowel obstruction or ileus. No free air is noted. No abnormal calcifications are identified. Degenerative changes and scoliosis of the thoracolumbar spine are noted. CONCLUSION: No bowel obstruction, ileus or free air. Degenerative changes and scoliosis of the thoracolumbar spin e. Nixon Garcia MD on July 30, 2017 at 16:32 Board Certified Radiologist. This report was verified electronically.
[2017-07-30] MEDS ORDERED: INSULIN DETEMIR 100 UNITS/ML VIAL SQ ONE (18:00)
[2017-07-30 18:44] LABS: HEMATOCRIT 27.3 % (39.0-51.0); MEAN CELL VOLUME 74.3 FL (80.0-100.0); MEAN CORPUSCULAR HEMOGLOBIN 24.6 PG (27.0-34.0); MEAN CORPUSCULAR HGB CONC 33.1 % (32.0-36.0); MEAN PLATELET VOLUME 7.3 FL (7.0-11.0); PLATELET COUNT 477 TH/MM3 (150-450); RED BLOOD COUNT 3.67 MIL/MM3 (4.50-5.90); RED CELL DISTRIBUTION WIDTH 22.3 % (11.6-17.2); WHITE BLOOD COUNT 12.6 TH/MM3 (4.0-11.0)
[2017-07-30] MEDS ORDERED: METOPROLOL TARTRATE 25 MG TAB PO SCH (21:00)
[2017-07-30] MEDS: LEVOFLOXACIN 250 MG PREMIX INJ 50 ML IV SCH (21:34)
[2017-07-30] MEDS: PANTOPRAZOLE SODIUM 40 MG VIAL IV PUSH SCH (21:35)
[2017-07-30] MEDS: TAMSULOSIN HCL 0.4 MG CAP PO SCH (21:35)
[2017-07-31] VITALS (15 sets, daily range): BP systolic 117–157; BP diastolic 63–95; PULSE 85–110; RESP 18–22; TEMP 97.5–98.8; O2SAT 100
[2017-07-31] MEDS: HYDROmorphone HCL PF 2 MG/ML VIAL IV PRN ×2 (01:05→13:22)
[2017-07-31] MEDS: LORazepam 2 MG/ML VIAL IV PRN ×2 (03:36→20:21)
--- NOTE | 2017-07-31 06:22 | MB ---
cc: SARAH DESAI M.D. DATE OF CONSULTATION 07/30/2017 REASON FOR CONSULTATION Chest pain, abnormal troponin level. HISTORY OF PRESENT ILLNESS The patient is a 57-year-old white male, recently evaluated by Dr. Tucekr, with a history of multiple medical problems including diabetes, bilateral Charcot feet, coronary artery disease, chronic right foot osteomyelitis, paroxysmal atrial fibrillation, mild nondilated cardiomyopathy, who presented to the hospital mainly with complaints of nausea and vomiting for the past 5 days. Yesterday he also developed an upper bilateral chest discomfort described as pressure, possibly associated with increased shortness of breath. The chest discomfort has been fairly constant since last night until today (2 p.m.). He denies pleurisy, palpitations. In the last 5 days he has had considerable lightheadedness to the point of near-syncope. He also notes increased pedal edema over the last 2 weeks. He denies paroxysmal nocturnal dyspnea, fevers. PAST MEDICAL HISTORY 1. Diabetes complicated by diabetic foot ulcers and diabetic neuropathy. 2. Coronary artery disease status post non-ST elevation myocardial infarction last month with an echo at that time showing ejection fraction of 40-45% with anteroseptal hypokinesis and nuclear stress testing showing a fixed apical defect. 3. Chronic right foot osteomyelitis. He is also status post bilateral fifth toe amputations. 4. Facial cellulitis complicated by bacteremia July 2016. 5. Paroxysmal atrial fibrillation. PAST SURGICAL HISTORY 1. Appendectomy. 2. Tonsillectomy. 3. Bilateral fifth toe amputations. 4. Right foot ulcer excision with incision of bone cortex of the cuboid, fourth right metatarsal, second and third right cuneiforms, 09/27/2015. CARDIAC MEDICATIONS AT HOME 1. Furosemide 40 mg b.i.d. 2. Imdur 30 mg daily. 3. Lisinopril 2.5 mg daily. 4. Cardizem 30 mg q.i.d. 5. Metoprolol tartrate 12.5 mg b.i.d. ALLERGIES CODEINE. FAMILY HISTORY The patient's father sustained a myocardial infarction in his 60s. SOCIAL HISTORY The patient denies any history of alcohol or tobacco abuse. REVIEW OF SYSTEMS As in the History of Present Illness, otherwise negative or noncontributory. He also denies headache, unilateral weakness or numbness, melena, dyspepsia, bright red blood per rectum. PHYSICAL EXAMINATION VITAL SIGNS: Blood pressure 139/97 with pulse of 94, respirations 17. GENERAL: He is a well-developed, well-nourished white male in no acute distress. NECK/HEENT EXAMINATION: Jugular venous pressure is normal. Carotid pulses are 2+ bilaterally and without bruits. CHEST: Examination of the chest reveals diminished breath sounds at the bases. CARDIOVASCULAR: On cardiac examination he has a regular rhythm and rate without S3, S4 or murmur. ABDOMEN: On abdominal examination he has a soft, nontender abdomen. Bowel sounds are present. There is no definite hepatosplenomegaly. EXTREMITIES: Examination of extremities reveals no clubbing or cyanosis. There is 1-2+ pretibial edema bilaterally. LABORATORY DATA WBC 12.5, hemoglobin 7.7, platelets 390. Potassium 4.6, BUN 53, creatinine 1.68. Troponin 2.43. CK 66. INR 1.8. EKG from 07/29/2017 at 05:26 p.m. Normal sinus rhythm, nonspecific ST abnormalities. CHEST X-RAY Small bilateral pleural effusions. IMPRESSION Chest pain, abnormal troponin levels in this 57-year-old white male with a history of coronary artery disease status post possible non-ST elevation myocardial infarction last month with nuclear stress testing showing no residual ischemia and a fixed apical defect, history of reduced ejection fraction 40-45%, paroxysmal atrial fibrillation, diabetes, chronic right foot osteomyelitis, diabetic foot ulcers, diabetic neuropathy, bilateral Charcot feet. In some respects his chest pains are somewhat atypical for myocardial ischemia. Despite constant chest discomfort since last night, CK levels are negative for myocardial infarction. EKG shows nonspecific changes. On the other hand, he does have risk factors for coronary disease and an echo last month does show evidence for ischemic cardiomyopathy. Also, review of his troponin levels since last month shows fluctuating levels. With respect to his atrial fibrillation, he is back in sinus rhythm. His thromboembolic risk is at least moderately elevated. He has declined anticoagulation therapy in the past. Finally, recent symptomatology, exam, chest x-ray suggests possible mild congestive heart failure. RECOMMENDATIONS 1. As he is presently a poor candidate for invasive cardiac evaluation and percutaneous coronary intervention with his renal insufficiency, significant anemia, ongoing infection, would recommend maximizing his medical regimen. 2. Stop the Cardizem in favor of maximizing beta pollo dosing. 3. In light of his renal insufficiency stop his ABBY inhibitor for now. 4. Continue oral furosemide. 5. Agree with heparin drip for now. 6. We will speak to the patient more regarding long-term oral anticoagulation therapy, although apparently he has declined such medication in the past. MD LILIANA Armas/SSB /1:48 PM /6:09 AM MTDD
--- NOTE | 2017-07-31 07:06 | MB ---
cc: SURAJ GRANT MD DATE OF CONSULTATION 07/30/[address] Cortez REASON FOR CONSULTATION Sepsis HISTORY OF PRESENT ILLNESS This is a 57-year-old white male who presented to the emergency room with vomiting and nausea. The patient states that he has vomited for the past five days straight. The patient was sent to the emergency department for evaluation by his primary physician. He was noted to have elevated troponin and is felt to have a [id number] myocardial infarction. The patient was recently discharged from this hospital on July 10. He was receiving IV antibiotics at home for infection of his left ankle. He was receiving cephazolin and Levaquin. The cultures had growth of staph and Acinetobacter. He had positive blood cultures as well with Group B beta strep and staph aureus. He was due to continue the IV antibiotics and oral antibiotic at home until September 02. The patient was recommended to have surgery on the left leg. Amputation was recommended, but he refused. He has an ulcerated open wound at the lateral left ankle which does not have any drainage. There is no foul smell to the area. He tells me that this also has decreased in size. There was also another ulcer at the lateral aspect of the left foot around the mid foot. He denies fever, chills or shortness of breath. He was recently seen by ID during last hospitalization in June and he was supposed to follow up with outpatient infectious disease for further management on the left ankle wound. The patient's white blood cell count is elevated at 12.5. His estimated GFR is 42 which is lower than the prior hospitalization. LFT's are elevated with AST of 389 and ALT of 84 and he also has alk phos elevation of 408. The temperature has been normal, but he did have one low temperature of 95.7 earlier today. His blood pressure is stable. He denies dysuria or back pain. PAST MEDICAL HISTORY 1. Diabetes mellitus 2. Atrial fibrillation 3. Chronic kidney disease 4. History of appendectomy 5. History of coronary stent. 6. Charcot feet 7. History of bilateral fifth toe amputation. ALLERGIES NO KNOWN DRUG ALLERGIES. ALLERGIES CODEINE MEDICATIONS 1. Aspirin 2. Protonix 3. Lopressor 4. Morphine sulfate p.r.n. 5. Subcutaneous Heparin 6. Lasix 7. Potassium 8. Flomax 9. Emelia-Colace 10. Insulin 11. Levaquin SOCIAL HISTORY No tobacco use. Rare alcohol. No illicit drugs. FAMILY HISTORY Noncontributory REVIEW OF SYSTEMS Significant for nausea and vomiting and chest pain, otherwise negative on 10-point review. PHYSICAL EXAMINATION This is a well-developed male who is awake and alert and in no acute distress. VITAL SIGNS: Includes a temperature of 97 degrees, BP 139/97, respirations 18, heart rate 94. HEENT: Head atraumatic. Extraocular movements grossly intact, pupils reactive to light. No icterus. Oropharynx, moist mucosa. No lesions. NECK: Supple. No adenopathy. LUNGS: Clear breath sounds bilateral which are diminished. HEART: Regular rate and rhythm. No discernible murmur. ABDOMEN: Bowel sounds present, soft, no tenderness appreciated. RECTAL: Not performed. : Normal genitalia. EXTREMITIES: The patient has Charcot's feet bilateral. The left ankle is swollen and has an ulceration which has no visible drainage. The crater of the ulceration is moist. There is another ulceration at the lateral aspect of the left foot which is dry. There is hypertrophic appearance of the left ankle. NEUROLOGIC: No gross focal findings. PSYCHIATRIC: The patient calm and cooperative. LABORATORY DATA WBC 12.5, platelet count 390, hemoglobin 7.7, 85% neutrophils, 8% lymphocytes. Creatinine 1.68, BUN 53, sodium 127, estimated GFR 42. IMPRESSION. 1. Sepsis 2. Acute kidney disease in addition to chronic kidney disease. 3. Septic arthritis of the left ankle. 4. Diabetic ulceration of the left ankle. 5. Recent bacteremia due to staph aureus and group B beta strep which likely originated from the patient's left foot which had similar organisms upon culture in June. MRI of the ankle at time showed inflammatory changes suspicious for septic arthritis of the left ankle. RECOMMENDATIONS 1. Monitor blood cultures 2. Continue treatment with cephazolin adjusted for renal function. 3. Continue the Levaquin with adjustment of the dose for kidney function. 4. Monitor clinical status. Thank you this consultation. I will follow the patient's progress along with you and will make further recommendations on followup. Suraj Grant MD FD/[place] /2:45 PM /6:38 AM
[2017-07-31] MEDS: INSULIN ASPART SUPPLEMENTAL SCALE SQ SCH ×4 (08:00→22:07)
--- NOTE | 2017-07-31 08:37 | PD.CARD.PN ---
Subjective Subjective Remarks Complains of continued, now mild, upper bilateral chest discomfort, present in constant fashion most of last night and this morning. Mild dyspnea. No pleurisy, dizziness, palpitations. Nausea better. No abdominal pain. Objective Medications Item Value Date Time Aspirin 81 mg 07/31/17 0900 (Ecotrin Ec) DAILY/PO Metoprolol 50 mg 07/30/17 2100 Tartrate BID/PO 07/30/17 213 (Lopressor) Nitroglycerin 1 inch 07/30/17 0000 (Nitroglycerin Q6HR/TOPICAL 07/31/17 0000 2% Oint) Furosemide 40 mg 07/29/17 2100 (Lasix) BID/PO 07/30/172135 Potassium Chloride 10 meq 07/29/172099 (KCl) BID/PO 07/30/172134 Heparin Sodium/ 250 ml @ 10 mls/hr 07/29/17 191 Dextrose TITRATE PRN/IV 07/29/172019 Current Medications Medications (Trade) Dose Ordered Sig/Tri Route Start Time Stop Time Status Last Admin (Heparin Inj) 5,000 units UNSCH PRN IV PUSH 07/30/17 01:15 (Heparin Inj) 2,500 units UNSCH PRN IV PUSH 07/30/17 01:15 07/30/17 05:25 Heparin Sodium/ Dextrose 250 ml @ 10 mls/hr TITRATE PRN IV 07/29/17 19:15 07/29/17 20:20 (Lasix) 40 mg BID PO 07/29/17 21:00 07/30/17 21:36 (KCl) 10 meq BID PO 07/29/17 21:00 07/30/17 21:35 (Flomax) 0.4 mg HS PO 07/29/17 21:00 07/30/17 21:35 (Prinivil) 2.5 mg DAILY PO 07/30/17 09:00 Future Hold 07/30/17 09:19 (Pill Splitter) 1 ea UNSCH PRN OTHER 07/29/17 20:30 (NS Flush) 2 ml UNSCH PRN IV FLUSH 07/29/17 20:30 (NS Flush) 2 ml BID IV FLUSH 07/29/17 21:00 07/30/17 21:35 (Tylenol) 650 mg Q4H PRN PO 07/29/17 20:30 (Zofran Inj) 4 mg Q6H PRN IVP 07/29/17 20:30 07/30/17 21:34 (Restoril) 15 mg HS PRN PO 07/29/17 20:30 (Narcan Inj) 0.4 mg UNSCH PRN IV PUSH 07/29/17 20:30 (Emelia-Colace) 1 tab BID PO 07/29/17 21:00 07/30/17 21:36 (Milk Of Magnesia Liq) 30 ml Q12H PRN PO 07/29/17 20:30 (Senokot) 17.2 mg Q12H PRN PO 07/29/17 20:30 (Dulcolax Supp) 10 mg DAILY PRN RECTAL 07/29/17 20:30 (Lactulose Liq) 30 ml DAILY PRN PO 07/29/17 20:30 (Ativan) 0.5 mg Q8H PRN PO 07/29/17 20:30 (Catapres) 0.1 mg Q6H PRN PO 07/29/17 20:30 (Dilaudid Pf Inj) 0.5 mg Q4H PRN IV 07/29/17 20:45 07/31/17 01:05 (Nitroglycerin 2% Oint) 1 inch Q6HR TOPICAL 07/30/17 00:00 07/31/17 00:00 (Protonix Inj) 40 mg Q24H IV PUSH 07/30/17 21:00 07/30/17 21:35 (Percocet 10-325 Mg) 1 tab Q4H PRN PO 07/29/17 20:30 07/30/17 13:03 (D50w (Vial) Inj) 50 ml UNSCH PRN IV PUSH 07/29/17 20:45 (Glucagon Inj) 1 mg UNSCH PRN OTHER 07/29/17 20:45 (NovoLOG SUPPLEMENTAL SCALE) 1 ACHS SLIDING SCALE SQ 07/29/17 21:00 07/30/17 21:00 Sodium Chloride 1,000 ml @ 30 mls/hr Q24H IV 07/30/17 13:15 07/30/17 13:15 (Lopressor) 50 mg BID PO 07/30/17 21:00 07/30/17 21:36 (Ecotrin Ec) 81 mg DAILY PO 2/9/18 09:00 (Morphine Inj) 5 mg Q2H PRN IV PUSH 07/30/17 14:00 07/30/17 22:03 Levofloxacin/ Dextrose 50 ml @ 50 mls/hr Q24H IV 07/30/17 21:00 07/30/17 21:34 Cefazolin Sodium 1000 mg/Sodium Chloride 100 ml @ 200 mls/hr Q12H IV 07/30/17 16:00 07/31/17 03:42 (Levemir Inj) 20 units DAILY SQ 07/31/17 09:00 (Ativan Inj) 0.5 mg Q6H PRN IV 07/31/17 03:15 07/31/17 03:36 (Phenergan Inj) 25 mg Q6H PRN IV-CENTRAL 07/31/17 03:15 Vital Signs / I&O Vital Signs Date Time Temp Pulse Resp B/P (MAP) Pulse Ox O2 Delivery O2 Flow Rate FiO2 07/30/17 18:00 94 07/30/17 17:48 99 21 07/30/17 17:00 98 07/30/17 16:00 98 07/30/17 15:00 98 20 127/79 (95) 98 07/30/17 15:00 104 07/30/17 14:00 97 07/30/17 13:00 95 07/30/17 12:00 94 07/30/17 11:00 97.0 90 17 139/97 (111) 100 07/30/17 11:00 96 07/30/17 10:00 94 07/30/17 09:00 96 I/O 07/30/17 07/30/17 07/30/17 07/31/17 07/31/17 07/31/17 07:00 15:00 23:00 07:00 15:00 23:00 Intake Total 1830 ml 450 ml Output Total 500 ml Balance 1330 ml 450 ml Intake Oral 480 ml Packed Cells 400 ml 400 ml Blood Product IV Normal Saline Flush 950 ml 50 ml Output Urine Total 500 ml Physical Exam GENERAL: Well developed, well nourished. No acute distress. HEENT: Jugular venous pressure is normal. CHEST: Lungs clear to auscultation anteriorly. CARDIAC: Regular rate and rhythm without S3, S4, or murmur. ABDOMEN: Soft, nontender, no hepatosplenomegaly. Bowel sounds present. EXTREMITIES: No clubbing, cyanosis. 1-2+ pretibial edema. Laboratory Laboratory Tests Test 07/30/17 11:00 07/30/17 18:01 07/30/17 21:30 Activated Partial Thromboplast Time 30.9 SEC 32.1 SEC White Blood Count 12.6 TH/MM3 Red Blood Count 3.67 MIL/MM3 Hemoglobin 9.0 GM/DL Hematocrit 27.3 % Mean Corpuscular Volume 74.3 FL Mean Corpuscular Hemoglobin 24.6 PG Mean Corpuscular Hemoglobin Concent 33.1 % Red Cell Distribution Width 22.3 % Platelet Count 477 TH/MM3 Mean Platelet Volume 7.3 FL Imaging Last 48 hours Impressions Abdomen X-Ray 07/30/17 0000 Signed Impressions: Service Date/Time: July 14:48 - CONCLUSION: No bowel obstruction, ileus or free air. Degenerative changes and scoliosis of the thoracolumbar spine. Nixon Garcia MD Chest X-Ray 07/29/17 1710 Signed Impressions: Service Date/Time: Saturday, July 29, 2017 17:43 - CONCLUSION: Small bilateral effusions and slight persistent parenchymal opacity at the left lung base. Draek Espinal MD Assessment and Plan Problem List: (1) CAD (coronary artery disease) ICD Codes: I25.10 - Atherosclerotic heart disease of [place] coronary artery without angina pectoris Status: Chronic Plan: Ongoing CP, now overall atypical for myocardial ischemia/infarct. Repeat enzymes pending this morning, but despite prolonged, constant CP prior to admission, CK levels negative. Troponin increases possibly in part due to renal insufficiency. No ischemia noted on nuclear stress test imaging last month. Patient overall poor candidate at this time for invasive cardiac evaluation, coronary revascularization procedure with his renal insufficiency, significant anemia, ongoing infection. REC medical therapy of his CAD change to oral nitrate increase metoprolol dosing continue aspirin Dr. Townsend to see PRN over the weekend (2) Ischemic cardiomyopathy ICD Codes: I25.5 - Ischemic cardiomyopathy Status: Chronic Plan: EF 40-45% on recent echo. Possible mild CHF on admission. Rec change to IV furosemide for now. Continue beta pollo, maximize dose, no ABBY-I with his renal insufficiency. (3) Paroxysmal atrial fibrillation ICD Codes: I48.0 - Paroxysmal atrial fibrillation Status: Chronic Plan: Remains in NSR. Thromboembolic risk at least moderately elevated. Patient has declined anticoagulation therapy in the past. Rec continue daily aspirin. Consider Amiodarone to help maintain NSR once LFT's better. Code Status full code Discussed Condition With patient Problem Qualifiers (1) CAD (coronary artery disease): Qualified Codes: I25.110 - Atherosclerotic heart disease of [place] coronary artery with unstable angina pectoris Rogelio Jaramillo MD Jul 31, 2017 08:37
[2017-07-31] MEDS: SODIUM CHLORIDE 0.9% FLUSH 10 ML FLUSH IV FLUSH SCH ×2 (09:00→20:21)
[2017-07-31] MEDS: ASPIRIN EC 81 MG TABEC PO SCH (09:00)
[2017-07-31] MEDS: DOCUSATE SODIUM 50 MG/SENNA 8.6 MG TAB PO SCH ×2 (09:00→20:22)
[2017-07-31] MEDS: INSULIN DETEMIR 100 UNITS/ML VIAL SQ SCH (09:00)
[2017-07-31] MEDS: FUROSEMIDE 40 MG/4 ML VIAL IV PUSH SCH ×2 (09:00→18:37)
[2017-07-31] MEDS ORDERED: METOPROLOL TARTRATE 25 MG TAB PO SCH (09:00)
[2017-07-31] MEDS: POTASSIUM CHLORIDE 10 MEQ CONTROLLED RELEASE TAB PO SCH ×2 (09:00→20:22)
--- NOTE | 2017-07-31 09:25 | EKG ---
Date Performed: 07/29/2017 Time Performed: 17:26:28 PTAGE: 57 years EKG: Sinus rhythm POSSIBLE LEFT ATRIAL ENLARGEMENT NONSPECIFIC ST & T-WAVE ABNORMALITY ABNORMAL ECG Compared to PREVIOUS TRACING , sinus rhythm has replaced atrial fibrillation with rapid ventricular r esponse. ST changes are slightly more prominent, consider ischemia. PREVIOUS TRACIN07/05/2017 14.1 0 DOCTOR: Hubert Andrade Interpretating Date/Time 07/31/2017 09:24:40
--- NOTE | 2017-07-31 09:34 | HHI.FPPN ---
Subjective Remarks c/o n/v, ngt placed d/w RN' Objective Vitals Vital Signs Date Time Temp Pulse Resp B/P (MAP) Pulse Ox O2 Delivery O2 Flow Rate FiO2 07/30/17 18:00 94 07/30/17 17:48 99 21 07/30/17 17:00 98 07/30/17 16:00 98 07/30/17 15:00 98 20 127/79 (95) 98 07/30/17 15:00 104 07/30/17 14:00 97 07/30/17 13:00 95 07/30/17 12:00 94 07/30/17 11:00 97.0 90 17 139/97 (111) 100 07/30/17 11:00 96 07/30/17 10:00 94 I/O 07/30/17 07/30/17 07/30/17 07/31/17 07/31/17 07/31/17 07:00 15:00 23:00 07:00 15:00 23:00 Intake Total 1830 ml 450 ml Output Total 500 ml Balance 1330 ml 450 ml Intake Oral 480 ml Packed Cells 400 ml 400 ml Blood Product IV Normal Saline Flush 950 ml 50 ml Output Urine Total 500 ml Result Diagram: 07/30/17 1801 07/30/17 0430 Objective Remarks GENERAL: SKIN: Warm and dry. large ulcerations LLE HEAD: Atraumatic. Normocephalic. EYES: Pupils equal and round. No scleral icterus. No injection or drainage. ENT: No nasal bleeding or discharge. Mucous membranes pink and moist. ngt c/d/ i NECK: Trachea midline. No JVD. CARDIOVASCULAR: Regular rate and rhythm. RESPIRATORY: No accessory muscle use. Clear to auscultation. Breath sounds equal bilaterally. GASTROINTESTINAL: Abdomen soft, non-tender, nondistended. Hepatic and splenic margins not palpable. MUSCULOSKELETAL: Extremities without clubbing, cyanosis, or edema. No obvious deformities. NEUROLOGICAL: Awake and alert. No obvious cranial nerve deficits. Motor grossly within normal limits. 1 out of 5 muscle strength in the arms and legs. Normal speech. PSYCHIATRIC: Appropriate mood and affect; insight and judgment normal. Medications and IVs Current Medications Medications (Trade) Dose Ordered Sig/Tri Route Start Time Stop Time Status Last Admin (Heparin Inj) 5,000 units UNSCH PRN IV PUSH 07/30/17 01:15 (Heparin Inj) 2,500 units UNSCH PRN IV PUSH 07/30/17 01:15 07/30/17 05:25 Heparin Sodium/ Dextrose 250 ml @ 10 mls/hr TITRATE PRN IV 07/29/17 19:15 07/29/17 20:20 (KCl) 10 meq BID PO 07/29/17 21:00 07/30/17 21:35 (Flomax) 0.4 mg HS PO 07/29/17 21:00 07/30/17 21:35 (Prinivil) 2.5 mg DAILY PO 07/30/17 09:00 Future Hold 07/30/17 09:19 (Pill Splitter) 1 ea UNSCH PRN OTHER 07/29/17 20:30 (NS Flush) 2 ml UNSCH PRN IV FLUSH 07/29/17 20:30 (NS Flush) 2 ml BID IV FLUSH 07/29/17 21:00 07/30/17 21:35 (Tylenol) 650 mg Q4H PRN PO 07/29/17 20:30 (Zofran Inj) 4 mg Q6H PRN IVP 07/29/17 20:30 07/30/17 21:34 (Restoril) 15 mg HS PRN PO 07/29/17 20:30 (Narcan Inj) 0.4 mg UNSCH PRN IV PUSH 07/29/17 20:30 (Emelia-Colace) 1 tab BID PO 07/29/17 21:00 07/30/17 21:36 (Milk Of Magnesia Liq) 30 ml Q12H PRN PO 07/29/17 20:30 (Senokot) 17.2 mg Q12H PRN PO 07/29/17 20:30 (Dulcolax Supp) 10 mg DAILY PRN RECTAL 07/29/17 20:30 (Lactulose Liq) 30 ml DAILY PRN PO 07/29/17 20:30 (Ativan) 0.5 mg Q8H PRN PO 07/29/17 20:30 (Catapres) 0.1 mg Q6H PRN PO 07/29/17 20:30 (Dilaudid Pf Inj) 0.5 mg Q4H PRN IV 07/29/17 20:45 07/31/17 01:05 (Nitroglycerin 2% Oint) 1 inch Q6HR TOPICAL 07/30/17 00:00 07/31/17 00:00 (Protonix Inj) 40 mg Q24H IV PUSH 07/30/17 21:00 07/30/17 21:35 (Percocet 10-325 Mg) 1 tab Q4H PRN PO 07/29/17 20:30 07/30/17 13:03 (D50w (Vial) Inj) 50 ml UNSCH PRN IV PUSH 07/29/17 20:45 (Glucagon Inj) 1 mg UNSCH PRN OTHER 07/29/17 20:45 (NovoLOG SUPPLEMENTAL SCALE) 1 ACHS SLIDING SCALE SQ 07/29/17 21:00 07/30/17 21:00 Sodium Chloride 1,000 ml @ 30 mls/hr Q24H IV 07/30/17 13:15 07/30/17 13:15 (Ecotrin Ec) 81 mg DAILY PO 07/31/17 09:00 (Morphine Inj) 5 mg Q2H PRN IV PUSH 07/30/17 14:00 07/30/17 22:03 Levofloxacin/ Dextrose 50 ml @ 50 mls/hr Q24H IV 07/30/17 21:00 07/30/17 21:34 Cefazolin Sodium 1000 mg/Sodium Chloride 100 ml @ 200 mls/hr Q12H IV 07/30/17 16:00 07/31/17 03:42 (Levemir Inj) 20 units DAILY SQ 07/31/17 09:00 (Ativan Inj) 0.5 mg Q6H PRN IV 07/31/17 03:15 07/31/17 03:36 (Phenergan Inj) 25 mg Q6H PRN IV-CENTRAL 07/31/17 03:15 (Lopressor) 75 mg BID PO 07/31/17 09:00 (Lasix Inj) 40 mg BID@,18 IV PUSH 07/31/17 09:00 A/P Assessment and Plan ASSESSMENT/PLAN- 1. Vomiting - unknown etiology possibly secondary to ileus etc or from current illnesses below. GI consult. 2. Non-ST elevation [place]: Nitroglycerin paste, heparin drip consult cardiology and O2 and pain control. 3. Diabetic ulcers 4. Septic arthritis in the left lower extremity. IV Levaquin and Vancomycin, consult ID. 5. Recent staph and beta strep bacteremia. 6. Anemia of chronic disease 6, Chronic kidney disease stage III 7. Atrial fibrillation 8. Hypertension 9. GI- prophylaxis, IV Protonix. DISPOSITION Likely discharge back to the [facility] if the patient survives as he has refused amputation of the leg. Arthur Cortez MD Jul 31, 2017 09:34
[2017-07-31 10:41] LABS: AUTOMATED NEUTROPHIL # 9.2 TH/MM3 (1.8-7.7); BASOPHIL % 0.2 % (0.0-2.0); EOSINOPHIL % 0.2 % (0.0-4.0); HEMATOCRIT 26.4 % (39.0-51.0); HEMOGLOBIN 8.8 GM/DL (13.0-17.0); LYMPH % 13.2 % (9.0-44.0); LYMPHOCYTE # 1.5 TH/MM3 (1.0-4.8); MEAN CELL VOLUME 73.8 FL (80.0-100.0); MEAN CORPUSCULAR HEMOGLOBIN 24.8 PG (27.0-34.0); MEAN CORPUSCULAR HGB CONC 33.6 % (32.0-36.0); MEAN PLATELET VOLUME 7.1 FL (7.0-11.0); MONO % 8.3 % (0.0-8.0); NEUT % 78.1 % (16.0-70.0); PLATELET COUNT 419 TH/MM3 (150-450); RED BLOOD COUNT 3.57 MIL/MM3 (4.50-5.90); RED CELL DISTRIBUTION WIDTH 22.3 % (11.6-17.2); WHITE BLOOD COUNT 11.8 TH/MM3 (4.0-11.0)
[2017-07-31 11:08] LABS: BICARBONATE 25.5 MEQ/L (21.0-32.0); CALCIUM 7.5 MG/DL (8.5-10.1); CREATININE 1.38 MG/DL (0.60-1.30)
[2017-07-31 11:20] LABS: TROPONIN I 1.73 NG/ML (0.02-0.05)
[2017-07-31] MEDS: NITROGLYCERIN 2% OINT 1 GM PACKET TOPICAL SCH ×4 (13:21→23:00)
[2017-07-31] MEDS: SODIUM CHLOR 0.9% 1000 ML INJ 1,000 ML IV SCH (13:24)
--- NOTE | 2017-07-31 14:39 | HHI.GIFU ---
Subjective Remarks Pt resting in bed, sleeping, but aroused to verbal stimuli. He denies any nausea and vomiting since having NG tube placed. 1000cc of bile colored fluid in suction canister. Has not had a BM since Thursday. Continued abdominal pain but does report improving some. (Andreina Buchanan) Objective Vitals I&O Vital Signs Date Time Temp Pulse Resp B/P (MAP) Pulse Ox O2 Delivery O2 Flow Rate FiO2 07/31/17 12:39 97.8 106 20 153/95 (114) 100 07/30/17 18:00 94 07/30/17 17:48 99 21 07/30/17 17:00 98 07/30/17 16:00 98 07/30/17 15:00 98 20 127/79 (95) 98 07/30/17 15:00 104 I/O 07/30/17 07/30/17 07/30/17 07/31/17 07/31/17 07/31/17 07:00 15:00 23:00 07:00 15:00 23:00 Intake Total 1830 ml 450 ml Output Total 500 ml Balance 1330 ml 450 ml Intake Oral 480 ml Packed Cells 400 ml 400 ml Blood Product IV Normal Saline Flush 950 ml 50 ml Output Urine Total 500 ml Laboratory Laboratory Tests Test 07/30/17 18:01 07/30/17 21:30 07/31/17 07:50 White Blood Count 12.6 11.8 Red Blood Count 3.67 3.57 Hemoglobin 9.0 8.8 Hematocrit 27.3 26.4 Mean Corpuscular Volume 74.3 73.8 Mean Corpuscular Hemoglobin 24.6 24.8 Mean Corpuscular Hemoglobin Concent 33.1 33.6 Red Cell Distribution Width 22.3 22.3 Platelet Count 477 419 Mean Platelet Volume 7.3 7.1 Activated Partial Thromboplast Time 32.1 32.4 Neutrophils (%) (Auto) 78.1 Lymphocytes (%) (Auto) 13.2 Monocytes (%) (Auto) 8.3 Eosinophils (%) (Auto) 0.2 Basophils (%) (Auto) 0.2 Neutrophils # (Auto) 9.2 Lymphocytes # (Auto) 1.5 Monocytes # (Auto) 1.0 Eosinophils # (Auto) 0.0 Basophils # (Auto) 0.0 CBC Comment DIFF FINAL Differential Comment Blood Urea Nitrogen 49 Creatinine 1.38 Random Glucose 81 Calcium Level 7.5 Sodium Level 130 Potassium Level 4.2 Chloride Level 97 Carbon Dioxide Level 25.5 Anion Gap 8 Estimat Glomerular Filtration Rate 53 Total Creatine Kinase 221 Troponin I 1.73 Date/Time Source Procedure Growth Status 07/30/17 01:15 Blood Peripheral Aerobic Blood Culture - Preliminary NO GROWTH IN 1 DAY Resulted 07/30/17 01:15 Blood Peripheral Anaerobic Blood Culture - Preliminary NO GROWTH IN 1 DAY Resulted Imaging Last Impressions Abdomen X-Ray 07/30/17 0000 Signed Impressions: Service Date/Time: July 14:48 - CONCLUSION: No bowel obstruction, ileus or free air. Degenerative changes and scoliosis of the thoracolumbar spine. Nixon Garcia MD Chest X-Ray 07/29/17 1710 Signed Impressions: Service Date/Time: Saturday, July 29, 2017 17:43 - CONCLUSION: Small bilateral effusions and slight persistent parenchymal opacity at the left lung base. Drake Espinal MD Physical Exam HEENT: Normocephalic; atraumatic CHEST: Even/unlabored CARDIAC: RRR ABDOMEN: Distended, sot, nontender, bowel sounds active EXTREMITIES: BLE edema SKIN: Normal; no rash; no jaundice. 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 (Andreina BuchananP) Assessment and Plan Plan ASSESSMENT - vomiting - frequent vomiting for 5 days. unclear etiology...2/ NSTEMI vs constipation vs obstruction vs ileus vs gastritis - anemia - microcytic, hypochromic, no obvious bleeding although he did have hematemesis at recent admission s/p2 x PRBC. INR 1.8 never had EGD or colonoscopy - elevated troponins - cardiology consult pending (07/31) --> Pt S/P NGT to LIWS- with 1000cc of bile colored fluid in suction canister. Pt denies any continued nausea or vomiting. Reports some improvement in abdominal pain. No BM since Thursday. KUB (07/30) --> No bowel obstruction, ileus or free air. Troponin remains elevated, however pt has renal insufficiency. H/H remains low 8.8/26.4 S/P 2 U PRBCs yesterday. Pt to be started on Heparin BID tonight, also on baby ASA. Remains on Protonix. Transaminitis- Elevated LFTs- not elevated during last hospital admission. AST-389 ALT-84 Alk phos-408 T bili-0.4. ? Medication induced vs possible CHF? Will order liver [facility] and US. PLAN - EGD on Thursday with cardiac clearance - Continue NGT to LIWS - Monitor H/H - Transfuse to keep hgb over 8 - US liver - Liver work up - Further recommendations to follow based on results of above Pt has been seen and examined by myself and Dr. Michel and this note is written on her behalf (Andreina Buchanan) Physician Comments agree with above ct abdomen/pelvis Dulcolax supp (Rachel Michel MD) Andreina Buchanan Jul 31, 2017 14:39 Rachel Michel MD Jul 31, 2017 21:00
[2017-07-31] MEDS: METOPROLOL TARTRATE 25 MG TAB PO SCH (15:28)
--- NOTE | 2017-07-31 17:12 | RADRPT ---
EXAM DATE/TIME: 07/31/2017 15:35 [facility] COMPARISON: No previous studies available for comparison. INDICATIONS : Increased lab values. MEDICAL HISTORY : Hypertension. Coronary artery disease. Nausea. Vomiting. Diabetes. Diabetic ulcer. MRSA. SURGICAL HISTORY : Tonsillectomy. Appendectomy. Adenoidectomy. Cardiac stent. Hernia repair. ENCOUNTER: Initial ACUITY: 1 day PAIN SCORE: 2/10 LOCATION: Bilateral upper quadrant MEASUREMENTS: LIVER: 18.3 cm length COMMON DUCT: 4 mm RIGHT KIDNEY: 12.2 x 4.2 x 6.0 cm SPLEEN: 11.1 cm length FINDINGS: LIVER: Increased echotexture without focal lesion or ductal dilatation. Some ascites identified along the c onvexity of the liver. COMMON DUCT: No intraluminal mass or stone visualized. GALLBLADDER: Contains no stones, demonstrates no wall thickening or pericholecystic fluid. PANCREAS: Not visualized due to overlying bowel gas and patient's inability to cooperate with the procedure. RIGHT KIDNEY: No hydronephrosis, stone or mass. SPLEEN: No focal lesion. MISCELLANEOUS: Bilateral pleural effusions, right greater than left CONCLUSION: 1. Limited examination due to extensive bowel gas and patient's inability to cooperate with the exam. 2. Liver is slightly prominent with increased echogenicity suggesting some degree of fatty infiltrati on. 3. Ascites. Bilateral pleural effusions. Chau Silvestre MD on July 31, 2017 at 17:07 Board Certified Radiologist. This report was verified electronically.
[2017-07-31 19:13] LABS: % SATURATION IRON PROFILE 11.1 % (20-50); IRON (FE) 29 MCG/DL (65-175); TOTAL IRON BINDING CAPACITY 260 MCG/DL (250-450)
[2017-07-31 19:16] LABS: FERRITIN 324 NG/ML (26-388)
[2017-07-31] MEDS: TAMSULOSIN HCL 0.4 MG CAP PO SCH (20:22)
[2017-07-31] MEDS ORDERED: BISACODYL 10 MG SUPP RECTAL ONE (21:15)
[2017-07-31] MEDS: HEPARIN SODIUM - SQ 10,000 UNITS/ML VIAL SQ SCH (21:53)
[2017-07-31] MEDS: PANTOPRAZOLE SODIUM 40 MG VIAL IV PUSH SCH (21:54)
[2017-07-31] MEDS: LEVOFLOXACIN 250 MG PREMIX INJ 50 ML IV SCH (21:58)
[2017-08-01] VITALS (20 sets, daily range): BP systolic 125–161; BP diastolic 60–99; PULSE 81–106; RESP 18–22; TEMP 98.1–98.3; O2SAT 97–100
[2017-08-01] MEDS: HYDROmorphone HCL PF 2 MG/ML VIAL IV PRN ×5 (00:10→22:27)
[2017-08-01] MEDS: LORazepam 2 MG/ML VIAL IV PRN ×2 (02:58→20:09)
[2017-08-01] MEDS: METOPROLOL TARTRATE 25 MG TAB PO SCH ×2 (03:48→15:00)
[2017-08-01] MEDS: NITROGLYCERIN 2% OINT 1 GM PACKET TOPICAL SCH ×4 (05:11→23:08)
[2017-08-01 07:03] LABS: EOSINOPHIL # 0.1 TH/MM3 (0-0.4); EOSINOPHIL % 0.5 % (0.0-4.0); HEMATOCRIT 27.7 % (39.0-51.0); HEMOGLOBIN 9.1 GM/DL (13.0-17.0); LYMPH % 11.8 % (9.0-44.0); LYMPHOCYTE # 1.3 TH/MM3 (1.0-4.8); MEAN CORPUSCULAR HEMOGLOBIN 24.3 PG (27.0-34.0); MEAN CORPUSCULAR HGB CONC 32.9 % (32.0-36.0); MONO % 7.7 % (0.0-8.0); MONOCYTE # 0.9 TH/MM3 (0-0.9); PLATELET COUNT 340 TH/MM3 (150-450); RED BLOOD COUNT 3.74 MIL/MM3 (4.50-5.90); RED CELL DISTRIBUTION WIDTH 22.8 % (11.6-17.2); WHITE BLOOD COUNT 11.3 TH/MM3 (4.0-11.0)
[2017-08-01 07:37] LABS: ALBUMIN 1.9 GM/DL (3.4-5.0); BICARBONATE 26.8 MEQ/L (21.0-32.0); CALCIUM 7.2 MG/DL (8.5-10.1); CALCIUM-PROTEIN CORRECTED 7.9 MG/DL (8.5-10.1); CREATININE 1.27 MG/DL (0.60-1.30); TOTAL BILIRUBIN ADULT 0.4 MG/DL (0.2-1.0); TOTAL PROTEIN 5.7 GM/DL (6.4-8.2)
[2017-08-01] MEDS: INSULIN ASPART SUPPLEMENTAL SCALE SQ SCH ×4 (08:00→21:11)
[2017-08-01] MEDS: INSULIN DETEMIR 100 UNITS/ML VIAL SQ SCH (09:00)
[2017-08-01] MEDS: SODIUM CHLORIDE 0.9% FLUSH 10 ML FLUSH IV FLUSH SCH ×2 (09:00→20:07)
[2017-08-01] MEDS: HEPARIN SODIUM - SQ 10,000 UNITS/ML VIAL SQ SCH ×2 (09:05→20:08)
[2017-08-01] MEDS: FUROSEMIDE 40 MG/4 ML VIAL IV PUSH SCH ×2 (09:06→17:32)
[2017-08-01] MEDS: POTASSIUM CHLORIDE 10 MEQ CONTROLLED RELEASE TAB PO SCH ×2 (09:07→20:09)
[2017-08-01] MEDS: DOCUSATE SODIUM 50 MG/SENNA 8.6 MG TAB PO SCH ×2 (09:07→20:08)
[2017-08-01] MEDS: ASPIRIN EC 81 MG TABEC PO SCH (09:07)
[2017-08-01] MEDS: ceFAZolin 2 GM PREMIX 50 ML IV SCH ×2 (12:03→20:07)
[2017-08-01] MEDS: SODIUM CHLOR 0.9% 1000 ML INJ 1,000 ML IV SCH (13:15)
--- NOTE | 2017-08-01 13:18 | HHI.GIFU ---
Subjective Remarks Pt sleeping when I walked in, awakens to verbal stimuli. He states his NGT came out at some point in the night, he is unsure what happened. Unsure when his last BM was. Denies nausea, vomiting, abdominal pain. (Andreina Buchanan) Objective Vitals I&O Vital Signs Date Time Temp Pulse Resp B/P (MAP) Pulse Ox O2 Delivery O2 Flow Rate FiO2 08/01/17 06:00 81 08/01/17 05:00 88 08/01/17 04:00 98.1 87 18 144/91 (108) 100 08/01/17 04:00 85 08/01/17 03:00 88 08/01/17 02:00 86 08/01/17 01:00 87 08/01/17 00:00 88 07/31/17 23:14 98.4 88 20 139/79 (99) 100 07/31/17 23:00 85 07/31/17 22:00 90 07/31/17 21:00 92 07/31/17 20:00 98.6 99 22 135/94 (108) 100 07/31/17 20:00 99 07/31/17 18:32 97.5 108 18 157/63 (94) 100 07/31/17 18:00 92 07/31/17 17:00 92 07/31/17 16:00 98 07/31/17 15:00 106 07/31/17 14:00 92 I/O 07/31/17 07/31/17 07/31/17 08/01/17 08/01/17 08/01/17 07:00 15:00 23:00 07:00 15:00 23:00 Intake Total 1200 ml 630 ml Output Total 1900 ml 800 ml Balance -700 ml -170 ml Intake Oral 1200 ml 480 ml IV Total 150 ml Output Urine Total 900 ml 800 ml Gastric Drainage Total 1000 ml # Bowel Movements 0 Laboratory Laboratory Tests Test 08/01/17 06:08 White Blood Count 11.3 Red Blood Count 3.74 Hemoglobin 9.1 Hematocrit 27.7 Mean Corpuscular Volume 74.0 Mean Corpuscular Hemoglobin 24.3 Mean Corpuscular Hemoglobin Concent 32.9 Red Cell Distribution Width 22.8 Platelet Count 340 Mean Platelet Volume 7.0 Neutrophils (%) (Auto) 80.0 Lymphocytes (%) (Auto) 11.8 Monocytes (%) (Auto) 7.7 Eosinophils (%) (Auto) 0.5 Basophils (%) (Auto) 0.0 Neutrophils # (Auto) 9.0 Lymphocytes # (Auto) 1.3 Monocytes # (Auto) 0.9 Eosinophils # (Auto) 0.1 Basophils # (Auto) 0.0 CBC Comment DIFF FINAL Differential Comment Blood Urea Nitrogen 39 Creatinine 1.27 Random Glucose 107 Total Protein 5.7 Albumin 1.9 Calcium Level 7.2 Alkaline Phosphatase 247 Aspartate Amino Transf (AST/SGOT) 55 Alanine Aminotransferase (ALT/SGPT) 36 Total Bilirubin 0.4 Sodium Level 134 Potassium Level 3.8 Chloride Level 100 Carbon Dioxide Level 26.8 Anion Gap 7 Estimat Glomerular Filtration Rate 58 Protein Corrected Calcium 7.9 Date/Time Source Procedure Growth Status 07/30/17 01:15 Blood Peripheral Aerobic Blood Culture - Preliminary NO GROWTH IN 2 DAYS Resulted 07/30/17 01:15 Blood Peripheral Anaerobic Blood Culture - Preliminary NO GROWTH IN 2 DAYS Resulted Imaging Last Impressions Liver Ultrasound 07/31/17 0000 Signed Impressions: Service Date/Time: Monday, July 31, 2017 15:35 - CONCLUSION: 1. Limited examination due to extensive bowel gas and patient's inability to cooperate with the exam. 2. Liver is slightly prominent with increased echogenicity suggesting some degree of fatty infiltration. 3. Ascites. Bilateral pleural effusions. Chau Sivlestre MD Abdomen X-Ray 07/30/17 0000 Signed Impressions: Service Date/Time: July 14:48 - CONCLUSION: No bowel obstruction, ileus or free air. Degenerative changes and scoliosis of the thoracolumbar spine. Nixon Garcia MD Chest X-Ray 07/29/17 1710 Signed Impressions: Service Date/Time: Saturday, July 29, 2017 17:43 - CONCLUSION: Small bilateral effusions and slight persistent parenchymal opacity at the left lung base. Drake Espinal MD Physical Exam HEENT: Normocephalic; atraumatic CHEST: Even/unlabored CARDIAC: RRR ABDOMEN: Distended, sot, nontender, bowel sounds active EXTREMITIES: BLE edema SKIN: Normal; no rash; no jaundice. 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 (Andreina Buchanan) Assessment and Plan Plan ASSESSMENT - vomiting - frequent vomiting for 5 days. unclear etiology...07/24 NSTEMI vs constipation vs obstruction vs ileus vs gastritis - anemia - microcytic, hypochromic, no obvious bleeding although he did have hematemesis at recent admission s/p2 x PRBC. INR 1.8 never had EGD or colonoscopy - elevated troponins - cardiology consult pending (07/31) --> Pt S/P NGT to LIWS- with 1000cc of bile colored fluid in suction canister. Pt denies any continued nausea or vomiting. Reports some improvement in abdominal pain. No BM since Thursday. KUB (07/30) --> No bowel obstruction, ileus or free air. Troponin remains elevated, however pt has renal insufficiency. H/H remains low 8.8/26.4 S/P 2 U PRBCs yesterday. Pt to be started on Heparin BID tonight, also on baby ASA. Remains on Protonix. Transaminitis- Elevated LFTs- not elevated during last hospital admission. AST-389 ALT-84 Alk phos-408 T bili-0.4. ? Medication induced vs possible CHF? Will order liver [facility] and US. (08/01) NGT no longer in place, pt states it came out in the night, he is unsure what happened. Denies nausea, vomiting, abdominal pain. Unsure when his last BM was, no BM documented by RN. H/H remains stable. Liver US --> Limited exam due to extensive bowel gas and pts inability to cooperate. There is slightly prominent with increased echogenicity suggesting some degree of fatty infiltration. Ascites. bilateral pleural effusions. Liver BRYANT pending. PLAN - EGD on Thursday with cardiac clearance - Monitor H/H - Transfuse to keep hgb over 8 - Liver work up - Further recommendations to follow based on results of above Pt has been seen and examined by myself and Dr. Perez and this note is written on his behalf (Andreina Buchanan) Plan Patient was seen and examined, agree with above-noted, significant nausea vomiting, plan for upper endoscopy on Thursday with cardiac clearance (Stef Perez MD) Andreina Buchanan Aug 01, 2017 13:18 Stef Perez MD Aug 01, 2017 15:45
--- NOTE | 2017-08-01 14:56 | HHI.PR ---
Subjective Remarks No significant changes from previous day. This 57-year-old male who has left lower extremity infection. Amputation has been recommended past and patient refuses amputation. Objective Vital Signs Date Time Temp Pulse Resp B/P (MAP) Pulse Ox O2 Delivery O2 Flow Rate FiO2 08/01/17 06:00 81 08/01/17 05:00 88 08/01/17 04:00 98.1 87 18 144/91 (108) 100 08/01/17 04:00 85 08/01/17 03:00 88 08/01/17 02:00 86 08/01/17 01:00 87 08/01/17 00:00 88 07/31/17 23:14 98.4 88 20 139/79 (99) 100 07/31/17 23:00 85 07/31/17 22:00 90 07/31/17 21:00 92 07/31/17 20:00 98.6 99 22 135/94 (108) 100 07/31/17 20:00 99 07/31/17 18:32 97.5 108 18 157/63 (94) 100 07/31/17 18:00 92 07/31/17 17:00 92 07/31/17 16:00 98 07/31/17 15:00 106 I/O 07/31/17 07/31/17 07/31/17 08/01/17 08/01/17 08/01/17 07:00 15:00 23:00 07:00 15:00 23:00 Intake Total 1200 ml 630 ml Output Total 1900 ml 800 ml Balance -700 ml -170 ml Intake Oral 1200 ml 480 ml IV Total 150 ml Output Urine Total 900 ml 800 ml Gastric Drainage Total 1000 ml # Bowel Movements 0 Result Diagram: 08/01/17 0608 08/01/17 06 Objective Remarks GENERAL: NAD, A&Ox3 HEAD: Normocephalic. NECK: Supple, trachea midline. No lymphadenopathy. EYES: No scleral icterus. No injection or drainage. CARDIOVASCULAR: Regular rate and rhythm without murmurs, gallops, or rubs. RESPIRATORY: Breath sounds equal bilaterally. No accessory muscle use. GASTROINTESTINAL: Abdomen soft, non-tender, nondistended. MUSCULOSKELETAL: No cyanosis, or edema. Bilateral lower extremity foot deformities. Wound at left foot with purulent odor. SKIN: Warm and dry. NEURO: No focal neurological deficitis. A/P Problem List: (1) Paroxysmal atrial fibrillation ICD Code: I48.0 - Paroxysmal atrial fibrillation Status: Chronic (2) CAD (coronary artery disease) ICD Code: I25.10 - Atherosclerotic heart disease of [place] coronary artery without angina pectoris Status: Chronic (3) Osteomyelitis of ankle or foot, left, acute ICD Code: M86.172 - Other acute osteomyelitis, left ankle and foot Assessment and Plan 57-year-old male admitted secondary to NSTEMI with left lower extremity infection Vomiting Resolved Non-ST elevation AR Continue Nitropaste Continue heparin drip And tinea oxygen Cardiology following Diabetic ulcers Left lower extremity foot infection Septic arthritis left lower extremity Continue IV Levaquin Continue IV vancomycin ID following Follow CBC Chronic anemia Anemia of chronic disease Follow CBC Chronic kidney disease stage III Monitor renal function Atrial fibrillation Follow on telemetry Hypertension Continue baseline treatment Follow blood pressures Adjust treatments as needed DVT prophylaxis Heparin Problem Qualifiers (1) CAD (coronary artery disease): Qualified Codes: I25.110 - Atherosclerotic heart disease of [place] coronary artery with unstable angina pectoris Camden Conn MD Aug 01, 2017 14:56
[2017-08-01] MEDS: ONDANSETRON HCL 4 MG/2 ML VIAL IVP PRN (17:01)
[2017-08-01] MEDS: LEVOFLOXACIN 750 MG/DEXTROSE 150 ML IV SCH (17:31)
--- NOTE | 2017-08-01 17:44 | RADRPT ---
EXAM DATE/TIME: 08/01/2017 14:04 [facility] COMPARISON: No previous studies available for comparison. INDICATIONS : Abdominal pain; evaluate for ileus. ORAL CONTRAST: No oral contrast ingested. RADIATION DOSE: 15.39 CTDIvol (mGy) MEDICAL HISTORY : Cardiovascular disease. Hypertension. Diabetes mellitus type 2. SURGICAL HISTORY : Appendectomy. Coronary artery stent. ENCOUNTER: Initial ACUITY: 1 day PAIN SCALE: 4/10 LOCATION: Bilateral upper quadrant TECHNIQUE: Volumetric scanning of the abdomen and pelvis was performed. Using automated exposure control and ad justment of the mA and/or kV according to patient size, radiation dose was kept as low as reasonably achievable to obtain optimal diagnostic quality images. DICOM format image data is available electro nically for review and comparison. FINDINGS: LOWER LUNGS: Moderate size right pleural effusion measuring 4.4 cm in small left lung 2.1 cm. Subsegmental consol idation is seen in the lateral anterior right lung with air bronchograms. LIVER: Homogeneous density without lesion for noncontrast technique. There is no dilation of the biliary tr ee. No calcified gallstones. SPLEEN: Normal size without lesion. PANCREAS: Within normal limits. KIDNEYS: 4 mm calcified stone upper pole right kidney without evidence of hydronephrosis. There are some calc ifications projected of the left renal sinus which have an appearance suggestive of vascular calcific ation. There is an exophytic cyst arising from the upper pole posterior on the left side measuring 4 .8 cm; there is a short segment of thin calcification along the posterior medial wall (Bosniak 2 lesi on). ADRENAL GLANDS: Within normal limits. VASCULAR: There is no aortic aneurysm. BOWEL/MESENTERY: Nondilated loops of small or large bowel. There is a mild amount of free fluid in the dependent pelv is. ABDOMINAL WALL: Within normal limits. RETROPERITONEUM: There is no lymphadenopathy. Some mild strandy opacities in the retroperitoneal fat without focal fr ee fluid. BLADDER: Smooth margin. No intraluminal calcifications. Calcification of the seminal vesicles bilaterally. INGUINAL: There is no lymphadenopathy or hernia. MUSCULOSKELETAL: Within normal limits for patient age. CONCLUSION: 1. No dilated loops of small or large bowel. 2. Nonobstructing 4 mm calcified stone upper pole right kidney. 3. Cystic lesion upper pole left kidney with thin rim calcification; Bosniak 2 lesion should be follo wed with next examination in 6-9 months. 4. Bilateral pleural effusions, right greater than left and multifocal areas of consolidation in the lower right lung. Davin Willett MD on August 01, 2017 at 17:35 Board Certified Radiologist. This report was verified electronically.
[2017-08-01] MEDS: PANTOPRAZOLE SODIUM 40 MG VIAL IV PUSH SCH (20:07)
[2017-08-01] MEDS: TAMSULOSIN HCL 0.4 MG CAP PO SCH (20:08)
--- NOTE | 2017-08-01 22:51 | PD.CONS ---
History of Present Illness Service Foot and Ankle Surgery/Podiatry Consult Requested By Dr. Cortez Reason for Consult Left foot wounds/Left foot OM Primary Care Physician Arthur Cortez MD Diagnoses: History of Present Illness Podiatry consulted for this 57 year old male well known to the Foot and Ankle service with left LE ulcerations known OM to fibula, tibia, talus with ankle abscess. On last admission BKA recommended by podiatry, vascular, and ortho. Patient vehemently denied BKA and was discharged wound care orders. Patient relates N,V,F,CH. Patient states he feels as if the leg caused his heart attack. Once again states that an orthopedic surgeon is going to reconstruct his other foot. Patient states he feels he might be willing to discuss BKA. 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 Ordered Medications Current Medications Medications (Trade) Dose Ordered Sig/Tri Route Start Time Stop Time Status Last Admin (KCl) 10 meq BID PO 07/29/17 21:00 08/01/17 20:09 (Flomax) 0.4 mg HS PO 07/29/17 21:00 08/01/17 20:08 (Prinivil) 2.5 mg DAILY PO 07/30/17 09:00 Future Hold 07/30/17 09:19 (Pill Splitter) 1 ea UNSCH PRN OTHER 07/29/17 20:30 (NS Flush) 2 ml UNSCH PRN IV FLUSH 07/29/17 20:30 (NS Flush) 2 ml BID IV FLUSH 07/29/17 21:00 08/01/17 20:07 (Tylenol) 650 mg Q4H PRN PO 07/29/17 20:30 (Zofran Inj) 4 mg Q6H PRN IVP 07/29/17 20:30 08/01/17 17:01 (Restoril) 15 mg HS PRN PO 07/29/17 20:30 (Narcan Inj) 0.4 mg UNSCH PRN IV PUSH 07/29/17 20:30 (Emelia-Colace) 1 tab BID PO 07/29/17 21:00 08/01/17 20:08 (Milk Of Magnesia Liq) 30 ml Q12H PRN PO 07/29/17 20:30 (Senokot) 17.2 mg Q12H PRN PO 07/29/17 20:30 (Dulcolax Supp) 10 mg DAILY PRN RECTAL 07/29/17 20:30 (Lactulose Liq) 30 ml DAILY PRN PO 07/29/17 20:30 (Ativan) 0.5 mg Q8H PRN PO 07/29/17 20:30 (Catapres) 0.1 mg Q6H PRN PO 07/29/17 20:30 (Dilaudid Pf Inj) 0.5 mg Q4H PRN IV 07/29/17 20:45 08/01/17 22:27 (Nitroglycerin 2% Oint) 1 inch Q6HR TOPICAL 07/30/17 00:00 08/01/17 23:08 (Protonix Inj) 40 mg Q24H IV PUSH 07/30/17 21:00 08/01/17 20:07 (Percocet 10-325 Mg) 1 tab Q4H PRN PO 07/29/17 20:30 07/30/17 13:03 (D50w (Vial) Inj) 50 ml UNSCH PRN IV PUSH 07/29/17 20:45 (Glucagon Inj) 1 mg UNSCH PRN OTHER 07/29/17 20:45 (NovoLOG SUPPLEMENTAL SCALE) 1 ACHS SLIDING SCALE SQ 07/29/17 21:00 08/01/17 21:11 Sodium Chloride 1,000 ml @ 30 mls/hr Q24H IV 07/30/17 13:15 07/31/17 13:24 (Ecotrin Ec) 81 mg DAILY PO 07/31/17 09:00 08/01/17 09:07 (Morphine Inj) 5 mg Q2H PRN IV PUSH 07/30/17 14:00 07/30/17 22:03 (Levemir Inj) 20 units DAILY SQ 2/9/18 09:00 08/01/17 09:00 (Ativan Inj) 0.5 mg Q6H PRN IV 07/31/17 03:15 08/01/17 20:09 (Phenergan Inj) 25 mg Q6H PRN IV-CENTRAL 07/31/17 03:15 (Lasix Inj) 40 mg BID@09,18 IV PUSH 07/31/17 09:00 08/01/17 17:32 (Heparin Inj) 5,000 units BID SQ 07/31/17 21:00 08/01/17 20:08 (Lopressor) 75 mg Q12H PO 07/31/17 15:00 08/01/17 15:00 Cefazolin Sodium/ Dextrose 50 ml @ 100 mls/hr Q8H IV 08/01/17 12:00 08/01/17 20:07 Levofloxacin/ Dextrose 150 ml @ 100 mls/hr Q24H IV 08/01/17 18:00 08/01/17 17:31 Physical Exam Vital Signs Vital Signs Date Time Temp Pulse Resp B/P (MAP) Pulse Ox O2 Delivery O2 Flow Rate FiO2 08/01/17 21:00 88 08/01/17 20:00 98.2 85 18 125/60 (81) 97 08/01/17 20:00 Nasal Cannula 2.00 08/01/17 20:00 85 08/01/17 18:00 102 08/01/17 17:00 96 08/01/17 16:00 98.1 100 20 137/97 (110) 100 08/01/17 16:00 100 08/01/17 16:00 85 08/01/17 15:00 94 08/01/17 14:00 96 08/01/17 13:00 106 08/01/17 12:00 100 08/01/17 11:00 85 08/01/17 11:00 98 08/01/17 11:00 98 22 161/99 (119) 100 08/01/17 07:00 98.3 92 20 126/85 (99) 100 08/01/17 07:00 85 08/01/17 06:00 81 08/01/17 05:00 88 08/01/17 04:00 98.1 87 18 144/91 (108) 100 08/01/17 04:00 85 08/01/17 03:00 88 08/01/17 02:00 86 08/01/17 01:00 87 08/01/17 00:00 88 07/31/17 23:14 98.4 88 20 139/79 (99) 100 07/31/17 23:00 85 Physical Exam GENERAL: This is a well-nourished, well-developed patient, in no apparent distress. SKIN: Left foot ulcerations noted. HEAD: Atraumatic. Normocephalic. EYES: Pupils equal round and reactive. ENT: Airway patent. NECK: Trachea midline. RESPIRATORY: Non labored breathing MUSCULOSKELETAL: Cavo varus deformity noted bilaterally. NEUROLOGICAL: Awake and alert. Normal speech. Vascular: Nonpalpable pulses left foot. Edema noted to bilateral lower extremity. Capillary refill time under 3 seconds to all digits that are present. Neurology: Pinpoint sensation decreased. Ho hyperalgesia noted. Derm: Left foot plantar and lateral ulcers noted with fiber granular base, serous drainage, hyperkeratotic borders, and probed bone. Fluctuance noted to submetatarsal head left foot. No crepitus noted. MSK: Equine no deformity noted bilateral lower extremity. Cares deformity noted bilateral lower extremity. Digital amputations noted. Laboratory Laboratory Tests Test 08/01/17 06:08 White Blood Count 11.3 Red Blood Count 3.74 Hemoglobin 9.1 Hematocrit 27.7 Mean Corpuscular Volume 74.0 Mean Corpuscular Hemoglobin 24.3 Mean Corpuscular Hemoglobin Concent 32.9 Red Cell Distribution Width 22.8 Platelet Count 340 Mean Platelet Volume 7.0 Neutrophils (%) (Auto) 80.0 Lymphocytes (%) (Auto) 11.8 Monocytes (%) (Auto) 7.7 Eosinophils (%) (Auto) 0.5 Basophils (%) (Auto) 0.0 Neutrophils # (Auto) 9.0 Lymphocytes # (Auto) 1.3 Monocytes # (Auto) 0.9 Eosinophils # (Auto) 0.1 Basophils # (Auto) 0.0 CBC Comment DIFF FINAL Differential Comment Blood Urea Nitrogen 39 Creatinine 1.27 Random Glucose 107 Total Protein 5.7 Albumin 1.9 Calcium Level 7.2 Alkaline Phosphatase 247 Aspartate Amino Transf (AST/SGOT) 55 Alanine Aminotransferase (ALT/SGPT) 36 Total Bilirubin 0.4 Sodium Level 134 Potassium Level 3.8 Chloride Level 100 Carbon Dioxide Level 26.8 Anion Gap 7 Estimat Glomerular Filtration Rate 58 Protein Corrected Calcium 7.9 Date/Time Source Procedure Growth Status 07/30/17 01:15 Blood Peripheral Aerobic Blood Culture - Preliminary NO GROWTH IN 2 DAYS Resulted 07/30/17 01:15 Blood Peripheral Anaerobic Blood Culture - Preliminary NO GROWTH IN 2 DAYS Resulted Result Diagram: 08/01/17 0608 08/01/17 0608 Imaging Last Impressions Abdomen/Pelvis CT 08/01/17 0000 Signed Impressions: Service Date/Time: Tuesday, August 01, 2017 14:04 - CONCLUSION: 1. No dilated loops of small or large bowel. 2. Nonobstructing 4 mm calcified stone upper pole right kidney. 3. Cystic lesion upper pole left kidney with thin rim calcification; Bosniak 2 lesion should be followed with next examination in 6- 9 months. 4. Bilateral pleural effusions, right greater than left and multifocal areas of consolidation in the lower right lung. Davin Willett MD Liver Ultrasound 07/31/17 0000 Signed Impressions: Service Date/Time: Monday, July 31, 2017 15:35 - CONCLUSION: 1. Limited examination due to extensive bowel gas and patient's inability to cooperate with the exam. 2. Liver is slightly prominent with increased echogenicity suggesting some degree of fatty infiltration. 3. Ascites. Bilateral pleural effusions. Chau Silvestre MD Abdomen X-Ray 07/30/17 0000 Signed Impressions: Service Date/Time: July 14:48 - CONCLUSION: No bowel obstruction, ileus or free air. Degenerative changes and scoliosis of the thoracolumbar spine. Nixon Garcia MD Chest X-Ray 07/29/17 1710 Signed Impressions: Service Date/Time: Saturday, July 29, 2017 17:43 - CONCLUSION: Small bilateral effusions and slight persistent parenchymal opacity at the left lung base. Drake Espinal MD Assessment and Plan Assessment and Plan 49-year-old male with left lower extremity osteomyelitis and nonhealing chronic wounds Patient examined and evaluated with all questions answered Recommendation remains unchanged patient would benefit from below-knee amputation Discussed with patient in great detail risks and complications associated with continued left lower extremity infection Patient states he is willing to vascular about moving forward with a below-the- knee amputation, he states he has not made of his mind as to whether not he will actually move forward with procedure and he would like more information from vascular Recommend daily dressing changes with Aquacel Ag 2+ with dry sterile dressing Wound Care/nursing to perform dressing changes please re-consult as needed however patient needs consult for vascular surgery because left lower extremity is not salvageable Slime Gonzales DPM Aug 01, 2017 22:51
[2017-08-02] VITALS (24 sets, daily range): BP systolic 100–150; BP diastolic 56–89; PULSE 75–104; RESP 18–20; TEMP 97.7–98.3; O2SAT 96–100
[2017-08-02] MEDS: METOPROLOL TARTRATE 25 MG TAB PO SCH ×2 (02:44→14:02)
[2017-08-02] MEDS: LORazepam 2 MG/ML VIAL IV PRN ×2 (02:44→19:46)
[2017-08-02] MEDS: ceFAZolin 2 GM PREMIX 50 ML IV SCH ×3 (02:45→19:46)
[2017-08-02] MEDS: NITROGLYCERIN 2% OINT 1 GM PACKET TOPICAL SCH ×4 (05:16→23:24)
[2017-08-02] MEDS: HYDROmorphone HCL PF 2 MG/ML VIAL IV PRN ×3 (05:35→23:24)
[2017-08-02 07:18] LABS: AUTOMATED NEUTROPHIL # 6.8 TH/MM3 (1.8-7.7); BASOPHIL % 0.1 % (0.0-2.0); EOSINOPHIL # 0.2 TH/MM3 (0-0.4); EOSINOPHIL % 2.5 % (0.0-4.0); HEMATOCRIT 28.3 % (39.0-51.0); HEMOGLOBIN 9.5 GM/DL (13.0-17.0); LYMPH % 13.5 % (9.0-44.0); LYMPHOCYTE # 1.2 TH/MM3 (1.0-4.8); MEAN CELL VOLUME 74.2 FL (80.0-100.0); MEAN CORPUSCULAR HEMOGLOBIN 24.8 PG (27.0-34.0); MEAN CORPUSCULAR HGB CONC 33.4 % (32.0-36.0); MEAN PLATELET VOLUME 7.1 FL (7.0-11.0); MONO % 8.2 % (0.0-8.0); MONOCYTE # 0.7 TH/MM3 (0-0.9); NEUT % 75.7 % (16.0-70.0); PLATELET COUNT 348 TH/MM3 (150-450); RED BLOOD COUNT 3.81 MIL/MM3 (4.50-5.90); RED CELL DISTRIBUTION WIDTH 22.9 % (11.6-17.2)
[2017-08-02 07:53] LABS: ALBUMIN 2.1 GM/DL (3.4-5.0); AST (GOT) 33 U/L (15-37); BLOOD UREA NITROGEN 37 MG/DL (7-18); CALCIUM 7.8 MG/DL (8.5-10.1); CHLORIDE 98 MEQ/L (98-107); CREATININE 1.19 MG/DL (0.60-1.30); GLOMERULAR FILTRATION RATE 63 ML/MIN (>89); GLUCOSE,RANDOM 125 MG/DL (74-106); SODIUM (NA) 133 MEQ/L (136-145)
[2017-08-02 07:56] LABS: ALKALINE PHOSPHATASE 225 U/L (45-117); ALT (GPT) 28 U/L (12-78); TOTAL BILIRUBIN ADULT 0.4 MG/DL (0.2-1.0)
[2017-08-02] MEDS: INSULIN ASPART SUPPLEMENTAL SCALE SQ SCH ×4 (08:00→20:34)
[2017-08-02] MEDS: POTASSIUM CHLORIDE 10 MEQ CONTROLLED RELEASE TAB PO SCH ×2 (09:27→19:45)
[2017-08-02] MEDS: SODIUM CHLORIDE 0.9% FLUSH 10 ML FLUSH IV FLUSH SCH ×2 (09:32→19:46)
[2017-08-02] MEDS: ASPIRIN EC 81 MG TABEC PO SCH (09:32)
[2017-08-02] MEDS: DOCUSATE SODIUM 50 MG/SENNA 8.6 MG TAB PO SCH ×2 (09:32→19:45)
[2017-08-02] MEDS: FUROSEMIDE 40 MG/4 ML VIAL IV PUSH SCH ×2 (09:32→17:48)
[2017-08-02] MEDS: HEPARIN SODIUM - SQ 10,000 UNITS/ML VIAL SQ SCH ×2 (09:33→19:45)
[2017-08-02] MEDS: INSULIN DETEMIR 100 UNITS/ML VIAL SQ SCH (09:33)
--- NOTE | 2017-08-02 10:08 | HHI.PR ---
Subjective Remarks Patient seen and examined this morning. Patient was irritated being interrupted from trying to take a nap. He is awake alert and oriented. He understands that we are medically managing his NSTEMI at this time. He understands that the current recommendations for his left foot is an amputation , he has no desire to do amputation but he is willing to discuss his options with the vascular surgeon. Consult to vascular surgery has been placed. Objective Vitals Vital Signs Date Time Temp Pulse Resp B/P (MAP) Pulse Ox O2 Delivery O2 Flow Rate FiO2 08/02/17 06:00 83 08/02/17 05:00 82 08/02/17 04:00 87 08/02/17 04:00 98.3 87 18 100/82 (88) 96 08/02/17 04:00 Nasal Cannula 2.00 08/02/17 03:00 84 08/02/17 02:00 85 08/02/17 01:00 86 08/02/17 00:00 98.0 75 18 117/63 (81) 97 08/02/17 00:00 Nasal Cannula 2.00 08/02/17 00:00 75 08/01/17 23:00 84 08/01/17 22:00 90 08/01/17 21:00 88 08/01/17 20:00 98.2 85 18 125/60 (81) 97 08/01/17 20:00 Nasal Cannula 2.00 08/01/17 20:00 85 08/01/17 18:00 102 08/01/17 17:00 96 08/01/17 16:00 98.1 100 20 137/97 (110) 100 08/01/17 16:00 100 08/01/17 16:00 85 08/01/17 15:00 94 08/01/17 14:00 96 08/01/17 13:00 106 08/01/17 12:00 100 08/01/17 11:00 85 08/01/17 11:00 98 08/01/17 11:00 98 22 161/99 (119) 100 I/O 08/01/17 08/01/17 08/01/17 08/02/17 08/02/17 08/02/17 07:00 15:00 23:00 07:00 15:00 23:00 Intake Total 630 ml 1800 ml 480 ml Output Total 800 ml 980 ml 800 ml Balance -170 ml 820 ml -320 ml Intake Oral 480 ml 1800 ml 480 ml IV Total 150 ml Output Urine Total 800 ml 980 ml 800 ml # Bowel Movements 0 0 0 Result Diagram: 08/02/1762108/02/17621 Imaging Last Impressions Abdomen/Pelvis CT 08/01/17 0000 Signed Impressions: Service Date/Time: Tuesday, August 01, 2017 14:04 - CONCLUSION: 1. No dilated loops of small or large bowel. 2. Nonobstructing 4 mm calcified stone upper pole right kidney. 3. Cystic lesion upper pole left kidney with thin rim calcification; Bosniak 2 lesion should be followed with next examination in 6- 9 months. 4. Bilateral pleural effusions, right greater than left and multifocal areas of consolidation in the lower right lung. Davin Willett MD Liver Ultrasound 07/31/17 0000 Signed Impressions: Service Date/Time: Monday, July 31, 2017 15:35 - CONCLUSION: 1. Limited examination due to extensive bowel gas and patient's inability to cooperate with the exam. 2. Liver is slightly prominent with increased echogenicity suggesting some degree of fatty infiltration. 3. Ascites. Bilateral pleural effusions. Chau Silvestre MD Abdomen X-Ray 07/30/17 0000 Signed Impressions: Service Date/Time: July 14:48 - CONCLUSION: No bowel obstruction, ileus or free air. Degenerative changes and scoliosis of the thoracolumbar spine. Nixon Garcia MD Chest X-Ray 07/29/17 1710 Signed Impressions: Service Date/Time: Saturday, July 29, 2017 17:43 - CONCLUSION: Small bilateral effusions and slight persistent parenchymal opacity at the left lung base. Drake Espinal MD Objective Remarks GENERAL: This is a well-nourished, well-developed patient, in no apparent distress. SKIN: Left foot ulcerations noted. HEAD: Atraumatic. Normocephalic. EYES: Pupils equal round and reactive. ENT: Airway patent. NECK: Trachea midline. RESPIRATORY: Non labored breathing MUSCULOSKELETAL: Cavo varus deformity noted bilaterally. NEUROLOGICAL: Awake and alert. Normal speech. Vascular: Nonpalpable pulses left foot. Edema noted to bilateral lower extremity. Capillary refill time under 3 seconds to all digits that are present. Neurology: Pinpoint sensation decreased. Ho hyperalgesia noted. Derm: Left foot plantar and lateral ulcers noted with fiber granular base, serous drainage, hyperkeratotic borders, and probed bone. Fluctuance noted to submetatarsal head left foot. No crepitus noted. MSK: Equine no deformity noted bilateral lower extremity. Cares deformity noted bilateral lower extremity. Digital amputations noted. Medications and IVs Current Medications Medications (Trade) Dose Ordered Sig/Tri Route Start Time Stop Time Status Last Admin (KCl) 10 meq BID PO 07/29/17 21:00 08/02/17 09:27 (Flomax) 0.4 mg HS PO 07/29/17 21:00 08/01/17 20:08 (Prinivil) 2.5 mg DAILY PO 07/30/17 09:00 Future Hold 07/30/17 09:19 (Pill Splitter) 1 ea UNSCH PRN OTHER 07/29/17 20:30 (NS Flush) 2 ml UNSCH PRN IV FLUSH 07/29/17 20:30 (NS Flush) 2 ml BID IV FLUSH 07/29/17 21:00 08/02/17 09:32 (Tylenol) 650 mg Q4H PRN PO 07/29/17 20:30 (Zofran Inj) 4 mg Q6H PRN IVP 07/29/17 20:30 08/01/17 17:01 (Restoril) 15 mg HS PRN PO 07/29/17 20:30 (Narcan Inj) 0.4 mg UNSCH PRN IV PUSH 07/29/17 20:30 (Emelia-Colace) 1 tab BID PO 07/29/17 21:00 08/02/17 09:32 (Milk Of Magnesia Liq) 30 ml Q12H PRN PO 07/29/17 20:30 08/02/17 09:33 (Senokot) 17.2 mg Q12H PRN PO 07/29/17 20:30 (Dulcolax Supp) 10 mg DAILY PRN RECTAL 07/29/17 20:30 (Lactulose Liq) 30 ml DAILY PRN PO 07/29/17 20:30 (Ativan) 0.5 mg Q8H PRN PO 07/29/17 20:30 (Catapres) 0.1 mg Q6H PRN PO 07/29/17 20:30 (Dilaudid Pf Inj) 0.5 mg Q4H PRN IV 07/29/17 20:45 08/02/17 05:35 (Nitroglycerin 2% Oint) 1 inch Q6HR TOPICAL 07/30/17 00:00 08/02/17 05:16 (Protonix Inj) 40 mg Q24H IV PUSH 07/30/17 21:00 08/01/17 20:07 (Percocet 10-325 Mg) 1 tab Q4H PRN PO 07/29/17 20:30 07/30/17 13:03 (D50w (Vial) Inj) 50 ml UNSCH PRN IV PUSH 07/29/17 20:45 (Glucagon Inj) 1 mg UNSCH PRN OTHER 07/29/17 20:45 (NovoLOG SUPPLEMENTAL SCALE) 1 ACHS SLIDING SCALE SQ 07/29/17 21:00 08/01/17 21:11 Sodium Chloride 1,000 ml @ 30 mls/hr Q24H IV 07/30/17 13:15 07/31/17 13:24 (Ecotrin Ec) 81 mg DAILY PO 07/31/17 09:00 08/02/17 09:32 (Morphine Inj) 5 mg Q2H PRN IV PUSH 07/30/17 14:00 07/30/17 22:03 (Levemir Inj) 20 units DAILY SQ 07/31/17 09:00 08/02/17 09:33 (Ativan Inj) 0.5 mg Q6H PRN IV 07/31/17 03:15 08/02/17 02:44 (Phenergan Inj) 25 mg Q6H PRN IV-CENTRAL 07/31/17 03:15 (Lasix Inj) 40 mg BID@,18 IV PUSH 07/31/17 09:00 08/02/17 09:32 (Heparin Inj) 5,000 units BID SQ 07/31/17 21:00 08/02/17 09:33 (Lopressor) 75 mg Q12H PO 07/31/17 15:00 08/02/17 02:44 Cefazolin Sodium/ Dextrose 50 ml @ 100 mls/hr Q8H IV 08/01/17 12:00 08/02/17 02:45 Levofloxacin/ Dextrose 150 ml @ 100 mls/hr Q24H IV 08/01/17 18:00 08/01/17 17:31 A/P Problem List: (1) Osteomyelitis of foot ICD Code: M86.9 - Osteomyelitis, unspecified Status: Chronic (2) Kakwq-ng-spwghce kidney injury ICD Code: N17.9 - Acute kidney failure, unspecified; N18.9 - Chronic kidney disease, unspecified Status: Acute (3) DM (diabetes mellitus) ICD Code: E11.9 - Type 2 diabetes mellitus without complications Status: Chronic (4) NSTEMI (non-ST elevation myocardial infarction) ICD Code: I21.4 - Non-ST elevation (NSTEMI) myocardial infarction Status: Acute (5) CAD (coronary artery disease) ICD Code: I25.10 - Atherosclerotic heart disease of [place] coronary artery without angina pectoris Status: Chronic (6) Ischemic cardiomyopathy ICD Code: I25.5 - Ischemic cardiomyopathy Status: Chronic (7) Osteomyelitis of ankle or foot, left, acute ICD Code: M86.172 - Other acute osteomyelitis, left ankle and foot Assessment and Plan 57-year-old male admitted secondary to NSTEMI with left lower extremity osteomyelitis Vomiting Resolved Non-ST elevation NM Continue Nitropaste Continue heparin drip And tinea oxygen Cardiology following, currently wishing to do medical management Diabetic ulcers Left lower extremity foot infection Septic arthritis left lower extremity Continue IV Levaquin Continue IV vancomycin ID following Follow CBC Podiatry following Patient has had multiple recommendations for amputation of the left lower extremity. He has been refusing to do this. However he is willing discussed with vascular surgery. Vascular surgery consultation placed Chronic anemia Anemia of chronic disease Follow CBC Chronic kidney disease stage III Monitor renal function Atrial fibrillation Follow on telemetry Hypertension Continue baseline treatment Follow blood pressures Adjust treatments as needed DVT prophylaxis Heparin Problem Qualifiers (1) CAD (coronary artery disease): Qualified Codes: I25.110 - Atherosclerotic heart disease of [place] coronary artery with unstable angina pectoris Hubert Courtney MD, R3 Aug 02, 2017 10:07
--- NOTE | 2017-08-02 10:20 | HHI.GIFU ---
Subjective Remarks Pt resting in bed, eating clear liquid breakfast. Denies nausea, vomiting, abdominal pain. (Andreina Buchanan) Objective Vitals I&O Vital Signs Date Time Temp Pulse Resp B/P (MAP) Pulse Ox O2 Delivery O2 Flow Rate FiO2 08/02/17 06:00 83 08/02/17 05:00 82 08/02/17 04:00 87 08/02/17 04:00 98.3 87 18 100/82 (88) 96 08/02/17 04:00 Nasal Cannula 2.00 08/02/17 03:00 84 08/02/17 02:00 85 08/02/17 01:00 86 08/02/17 00:00 98.0 75 18 117/63 (81) 97 08/02/17 00:00 Nasal Cannula 2.00 08/02/17 00:00 75 08/01/17 23:00 84 08/01/17 22:00 90 08/01/17 21:00 88 08/01/17 20:00 98.2 85 18 125/60 (81) 97 08/01/17 20:00 Nasal Cannula 2.00 08/01/17 20:00 85 08/01/17 18:00 102 08/01/17 17:00 96 08/01/17 16:00 98.1 100 20 137/97 (110) 100 08/01/17 16:00 100 08/01/17 16:00 85 08/01/17 15:00 94 08/01/17 14:00 96 08/01/17 13:00 106 08/01/17 12:00 100 08/01/17 11:00 85 08/01/17 11:00 98 08/01/17 11:00 98 22 161/99 (119) 100 I/O 08/01/17 08/01/17 08/01/17 08/02/17 08/02/17 08/02/17 07:00 15:00 23:00 07:00 15:00 23:00 Intake Total 630 ml 1800 ml 480 ml Output Total 800 ml 980 ml 800 ml Balance -170 ml 820 ml -320 ml Intake Oral 480 ml 1800 ml 480 ml IV Total 150 ml Output Urine Total 800 ml 980 ml 800 ml # Bowel Movements 0 0 0 Laboratory Laboratory Tests Test 08/02/17 06:22 White Blood Count 9.0 Red Blood Count 3.81 Hemoglobin 9.5 Hematocrit 28.3 Mean Corpuscular Volume 74.2 Mean Corpuscular Hemoglobin 24.8 Mean Corpuscular Hemoglobin Concent 33.4 Red Cell Distribution Width 22.9 Platelet Count 348 Mean Platelet Volume 7.1 Neutrophils (%) (Auto) 75.7 Lymphocytes (%) (Auto) 13.5 Monocytes (%) (Auto) 8.2 Eosinophils (%) (Auto) 2.5 Basophils (%) (Auto) 0.1 Neutrophils # (Auto) 6.8 Lymphocytes # (Auto) 1.2 Monocytes # (Auto) 0.7 Eosinophils # (Auto) 0.2 Basophils # (Auto) 0.0 CBC Comment DIFF FINAL Differential Comment Blood Urea Nitrogen 37 Creatinine 1.19 Random Glucose 125 Total Protein 6.0 Albumin 2.1 Calcium Level 7.8 Alkaline Phosphatase 225 Aspartate Amino Transf (AST/SGOT) 33 Alanine Aminotransferase (ALT/SGPT) 28 Total Bilirubin 0.4 Sodium Level 133 Potassium Level 3.8 Chloride Level 98 Carbon Dioxide Level 27.0 Anion Gap 8 Estimat Glomerular Filtration Rate 63 Date/Time Source Procedure Growth Status 07/30/17 01:15 Blood Peripheral Aerobic Blood Culture - Preliminary NO GROWTH IN 2 DAYS Resulted 07/30/17 01:15 Blood Peripheral Anaerobic Blood Culture - Preliminary NO GROWTH IN 2 DAYS Resulted Imaging Last Impressions Abdomen/Pelvis CT 08/01/17 0000 Signed Impressions: Service Date/Time: Tuesday, August 01, 2017 14:04 - CONCLUSION: 1. No dilated loops of small or large bowel. 2. Nonobstructing 4 mm calcified stone upper pole right kidney. 3. Cystic lesion upper pole left kidney with thin rim calcification; Bosniak 2 lesion should be followed with next examination in 6- 9 months. 4. Bilateral pleural effusions, right greater than left and multifocal areas of consolidation in the lower right lung. Davin Willett MD Liver Ultrasound 07/31/17 0000 Signed Impressions: Service Date/Time: Monday, July 31, 2017 15:35 - CONCLUSION: 1. Limited examination due to extensive bowel gas and patient's inability to cooperate with the exam. 2. Liver is slightly prominent with increased echogenicity suggesting some degree of fatty infiltration. 3. Ascites. Bilateral pleural effusions. Chau Silvestre MD Abdomen X-Ray 07/30/17 0000 Signed Impressions: Service Date/Time: July 14:48 - CONCLUSION: No bowel obstruction, ileus or free air. Degenerative changes and scoliosis of the thoracolumbar spine. Nixon Garcia MD Chest X-Ray 07/29/17 1710 Signed Impressions: Service Date/Time: Saturday, July 29, 2017 17:43 - CONCLUSION: Small bilateral effusions and slight persistent parenchymal opacity at the left lung base. Drake Espinal MD Physical Exam HEENT: Normocephalic; atraumatic CHEST: Even/unlabored CARDIAC: RRR ABDOMEN: Distended, sot, nontender, bowel sounds active EXTREMITIES: BLE edema SKIN: Normal; no rash; no jaundice. SUPERVISOR TYPE DISK QUALITY CONTROL: No focal deficits; alert and oriented times three. (Andreina Buchanan SENIOR BENEFITS ANALYST) Assessment and Plan Plan - vomiting - frequent vomiting for 5 days. unclear etiology...07/24 NSTEMI vs constipation vs obstruction vs ileus vs gastritis - anemia - microcytic, hypochromic, no obvious bleeding although he did have hematemesis at recent admission s/p2 x PRBC. INR 1.8 never had EGD or colonoscopy - elevated troponins - cardiology consult pending (07/31) --> Pt S/P NGT to LIWS- with 1000cc of bile colored fluid in suction canister. Pt denies any continued nausea or vomiting. Reports some improvement in abdominal pain. No BM since Thursday. KUB (07/30) --> No bowel obstruction, ileus or free air. Troponin remains elevated, however pt has renal insufficiency. H/H remains low 8.8/26.4 S/P 2 U PRBCs yesterday. Pt to be started on Heparin BID tonight, also on baby ASA. Remains on Protonix. Transaminitis- Elevated LFTs- not elevated during last hospital admission. AST-389 ALT-84 Alk phos-408 T bili-0.4. ? Medication induced vs possible CHF? Will order liver BRYANT and US. (08/01) NGT no longer in place, pt states it came out in the night, he is unsure what happened. Denies nausea, vomiting, abdominal pain. Unsure when his last BM was, no BM documented by RN. H/H remains stable. Liver US --> Limited exam due to extensive bowel gas and pts inability to cooperate. There is slightly prominent with increased echogenicity suggesting some degree of fatty infiltration. Ascites. bilateral pleural effusions. Liver BRYANT pending. (08/02) --> Pt with no GI complaints at this time. Liver BRYANT still pending. Plan remains the same for EGD tomorrow with cardiac clearance. Awaiting cardiology to see. Need Heparin held if morning if we can proceed with procedure. Will keep pt NPO after MN and obtain consent. H/H stable. PLAN - EGD tomorrow with cardiac clearance - Obtain consent - NPO after MN - Monitor H/H - Transfuse to keep hgb over 8 - Liver work up - Further recommendations to follow based on results of above Pt has been seen and examined by myself and Dr. Jennings and this note is written on his behalf (Andreina Buchanan) Physician Comments patient seen and examined agree with above monitor labs continue present supportive care EGD tomorrow (Sheng Jennings MD) Andreina Buchanan Aug 02, 2017 10:20 Sheng Jennings MD Aug 02, 2017 22:39
--- NOTE | 2017-08-02 12:49 | HHI.PR ---
Subjective Remarks "No chest pain, want to discharge my ass off" Objective Vital Signs Date Time Temp Pulse Resp B/P (MAP) Pulse Ox O2 Delivery O2 Flow Rate FiO2 08/02/17 06:00 83 08/02/17 05:00 82 08/02/17 04:00 87 08/02/17 04:00 98.3 87 18 100/82 (88) 96 08/02/17 04:00 Nasal Cannula 2.00 08/02/17 03:00 84 08/02/17 02:00 85 08/02/17 01:00 86 08/02/17 00:00 98.0 75 18 117/63 (81) 97 08/02/17 00:00 Nasal Cannula 2.00 08/02/17 00:00 75 08/01/17 23:00 84 08/01/17 22:00 90 08/01/17 21:00 88 08/01/17 20:00 98.2 85 18 125/60 (81) 97 08/01/17 20:00 Nasal Cannula 2.00 08/01/17 20:00 85 08/01/17 18:00 102 08/01/17 17:00 96 08/01/17 16:00 98.1 100 20 137/97 (110) 100 08/01/17 16:00 100 08/01/17 16:00 85 08/01/17 15:00 94 08/01/17 14:00 96 08/01/17 13:00 106 I/O 08/01/17 08/01/17 08/01/17 08/02/17 08/02/17 08/02/17 07:00 15:00 23:00 07:00 15:00 23:00 Intake Total 630 ml 1800 ml 480 ml Output Total 800 ml 980 ml 800 ml Balance -170 ml 820 ml -320 ml Intake Oral 480 ml 1800 ml 480 ml IV Total 150 ml Output Urine Total 800 ml 980 ml 800 ml # Bowel Movements 0 0 0 Result Diagram: 08/02/1762108/02/17621 Imaging Alert, fully oriented, very disrespectful Lungs: ventilated Heart: S1, S2 regular Abdomen: soft, no mass, obese Ext: Severe PVD, osteomyelitis Assessment and Plan Problem List: (1) NSTEMI (non-ST elevation myocardial infarction) ICD Codes: I21.4 - Non-ST elevation (NSTEMI) myocardial infarction Status: Acute Plan: No chest pain Very disrespectful to the staff Non compliant Not a candidate for intervention base on Dr Jaramillo note Can be DH whenever it is ok with the managing team I will be available on a PRN basis (2) Cellulitis of toe, right ICD Codes: L03.031 - Cellulitis of right toe Status: Acute (3) CHF (congestive heart failure) ICD Codes: I50.9 - Heart failure, unspecified Plan: Previous echo EF around 40-45% Tio Minaya MD Aug 02, 2017 12:49
[2017-08-02] MEDS: SODIUM CHLOR 0.9% 1000 ML INJ 1,000 ML IV SCH (13:56)
[2017-08-02] MEDS: LEVOFLOXACIN 750 MG/DEXTROSE 150 ML IV SCH (17:47)
[2017-08-02] MEDS: PANTOPRAZOLE SODIUM 40 MG VIAL IV PUSH SCH (19:45)
[2017-08-02] MEDS: TAMSULOSIN HCL 0.4 MG CAP PO SCH (19:45)
--- NOTE | 2017-08-02 21:00 | PD.CAR.PN ---
CVT Progress Note Subjective/Hospital Course: Patient with osteomyelitis and destruction of the L ankle. At [facility] encounter, vascular surgery, podiatry and medicine recommended BKA Patient refused then and now. Please let me know if patient changes his mind.. Will be available Objective: Vital Signs Date Time Temp Pulse Resp B/P (MAP) Pulse Ox O2 Delivery O2 Flow Rate FiO2 08/02/17 18:00 100 08/02/17 17:00 96 08/02/17 16:30 97.8 94 19 113/79 (90) 100 08/02/17 16:00 88 08/02/17 15:00 87 08/02/17 14:00 104 08/02/17 13:00 100 08/02/17 12:00 98.0 102 19 129/89 (102) 99 08/02/17 12:00 99 Room Air 08/02/17 12:00 87 08/02/17 10:00 100 08/02/17 09:00 90 08/02/17 08:00 94 Room Air 08/02/17 08:00 92 08/02/17 07:40 97.7 94 19 120/56 (77) 99 08/02/17 07:00 88 08/02/17 06:00 83 08/02/17 05:00 82 08/02/17 04:00 87 08/02/17 04:00 98.3 87 18 100/82 (88) 96 08/02/17 04:00 Nasal Cannula 2.00 08/02/17 03:00 84 08/02/17 02:00 85 08/02/17 01:00 86 08/02/17 00:00 98.0 75 18 117/63 (81) 97 08/02/17 00:00 Nasal Cannula 2.00 08/02/17 00:00 75 08/01/17 23:00 84 08/01/17 22:00 90 08/01/17 21:00 88 Result Diagram: 08/02/1762108/02/17621 (1) CAD (coronary artery disease) Plan: Ongoing CP, now overall atypical for myocardial ischemia/infarct. Repeat enzymes pending this morning, but despite prolonged, constant CP prior to admission, CK levels negative. Troponin increases possibly in part due to renal insufficiency. No ischemia noted on nuclear stress test imaging last month. Patient overall poor candidate at this time for invasive cardiac evaluation, coronary revascularization procedure with his renal insufficiency, significant anemia, ongoing infection. REC medical therapy of his CAD change to oral nitrate increase metoprolol dosing continue aspirin Dr. Townsend to see PRN over the weekend (2) Ischemic cardiomyopathy Plan: EF 40-45% on recent echo. Possible mild CHF on admission. Rec change to IV furosemide for now. Continue beta pollo, maximize dose, no ABBY-I with his renal insufficiency. (3) Paroxysmal atrial fibrillation Plan: Remains in NSR. Thromboembolic risk at least moderately elevated. Patient has declined anticoagulation therapy in the past. Rec continue daily aspirin. Consider Amiodarone to help maintain NSR once LFT's better. Problem Qualifiers (1) CAD (coronary artery disease): Qualified Codes: I25.110 - Atherosclerotic heart disease of [place] coronary artery with unstable angina pectoris Larisa Hernández MD Aug 02, 2017 21:00
[2017-08-03] VITALS (24 sets, daily range): BP systolic 113–136; BP diastolic 77–86; PULSE 85–102; RESP 16–20; TEMP 98–98.2; O2SAT 95–100
[2017-08-03] MEDS: METOPROLOL TARTRATE 25 MG TAB PO SCH (02:55)
[2017-08-03] MEDS: ceFAZolin 2 GM PREMIX 50 ML IV SCH ×3 (02:56→21:04)
[2017-08-03] MEDS: LORazepam 2 MG/ML VIAL IV PRN (02:59)
[2017-08-03] MEDS: HYDROmorphone HCL PF 2 MG/ML VIAL IV PRN ×2 (04:53→21:05)
[2017-08-03] MEDS: NITROGLYCERIN 2% OINT 1 GM PACKET TOPICAL SCH (05:42)
--- NOTE | 2017-08-03 07:19 | HHI.FPPN ---
Subjective Remarks up, alert asking to eat not wanting to talk d/w RN Objective Vitals Vital Signs Date Time Temp Pulse Resp B/P (MAP) Pulse Ox O2 Delivery O2 Flow Rate FiO2 08/03/17 06:00 92 08/03/17 05:00 91 08/03/17 04:00 Room Air 08/03/17 04:00 98.2 89 18 131/84 (100) 95 08/03/17 04:00 89 08/03/17 03:00 91 08/03/17 02:00 87 08/03/17 01:00 90 08/03/17 00:00 98.0 85 20 136/86 (103) 100 08/03/17 00:00 96 08/03/17 00:00 Room Air 08/02/17 23:00 92 08/02/17 22:00 87 08/02/17 21:36 21 08/02/17 21:00 88 08/02/17 20:00 Room Air 08/02/17 20:00 85 08/02/17 20:00 Room Air 08/02/17 20:00 98.0 85 20 150/84 (106) 100 08/02/17 18:00 100 08/02/17 17:00 96 08/02/17 16:30 97.8 94 19 113/79 (90) 100 08/02/17 16:00 88 08/02/17 15:00 87 08/02/17 14:00 104 08/02/17 13:00 100 08/02/17 12:00 98.0 102 19 129/89 (102) 99 08/02/17 12:00 99 Room Air 08/02/17 12:00 87 08/02/17 10:00 100 08/02/17 09:00 90 08/02/17 08:00 94 Room Air 08/02/17 08:00 92 08/02/17 07:40 97.7 94 19 120/56 (77) 99 I/O 08/02/17 08/02/17 08/02/17 08/03/17 08/03/17 08/03/17 07:00 15:00 23:00 07:00 15:00 23:00 Intake Total 480 ml 750 ml Output Total 800 ml 900 ml Balance -320 ml -150 ml Intake Oral 480 ml 750 ml Output Urine Total 800 ml 900 ml # Bowel Movements 0 0 Result Diagram: 08/02/1762108/02/17621 Objective Remarks GENERAL: SKIN: Warm and dry. large ulcerations LLE HEAD: Atraumatic. Normocephalic. EYES: Pupils equal and round. No scleral icterus. No injection or drainage. ENT: No nasal bleeding or discharge. Mucous membranes pink and moist. ngt c/d/ i NECK: Trachea midline. No JVD. CARDIOVASCULAR: Regular rate and rhythm. RESPIRATORY: No accessory muscle use. Clear to auscultation. Breath sounds equal bilaterally. GASTROINTESTINAL: Abdomen soft, non-tender, nondistended. Hepatic and splenic margins not palpable. MUSCULOSKELETAL: Extremities without clubbing, cyanosis, or edema. No obvious deformities. NEUROLOGICAL: Awake and alert. No obvious cranial nerve deficits. Motor grossly within normal limits. 1 out of 5 muscle strength in the arms and legs. Normal speech. PSYCHIATRIC: Appropriate mood and affect; insight and judgment normal. Medications and IVs Current Medications Medications (Trade) Dose Ordered Sig/Tri Route Start Time Stop Time Status Last Admin (KCl) 10 meq BID PO 07/29/17 21:00 08/02/17 19:45 (Flomax) 0.4 mg HS PO 07/29/17 21:00 08/02/17 19:45 (Prinivil) 2.5 mg DAILY PO 07/30/17 09:00 Future hold 07/30/17 09:19 (Pill Splitter) 1 ea UNSCH PRN OTHER 07/29/17 20:30 (NS Flush) 2 ml UNSCH PRN IV FLUSH 07/29/17 20:30 (NS Flush) 2 ml BID IV FLUSH 07/29/17 21:00 08/02/17 19:46 (Tylenol) 650 mg Q4H PRN PO 07/29/17 20:30 (Zofran Inj) 4 mg Q6H PRN IVP 07/29/17 20:30 08/01/17 17:01 (Restoril) 15 mg HS PRN PO 07/29/17 20:30 (Narcan Inj) 0.4 mg UNSCH PRN IV PUSH 07/29/17 20:30 (Emelia-Colace) 1 tab BID PO 07/29/17 21:00 08/02/17 19:45 (Milk Of Magnesia Liq) 30 ml Q12H PRN PO 07/29/17 20:30 08/02/17 09:33 (Senokot) 17.2 mg Q12H PRN PO 07/29/17 20:30 (Dulcolax Supp) 10 mg DAILY PRN RECTAL 07/29/17 20:30 (Lactulose Liq) 30 ml DAILY PRN PO 07/29/17 20:30 (Ativan) 0.5 mg Q8H PRN PO 07/29/17 20:30 (Catapres) 0.1 mg Q6H PRN PO 07/29/17 20:30 (Dilaudid Pf Inj) 0.5 mg Q4H PRN IV 07/29/17 20:45 08/03/17 04:53 (Protonix Inj) 40 mg Q24H IV PUSH 07/30/17 21:00 08/02/17 19:45 (Percocet 10-325 Mg) 1 tab Q4H PRN PO 07/29/17 20:30 07/30/17 13:03 (D50w (Vial) Inj) 50 ml UNSCH PRN IV PUSH 07/29/17 20:45 (Glucagon Inj) 1 mg UNSCH PRN OTHER 07/29/17 20:45 (NovoLOG SUPPLEMENTAL SCALE) 1 ACHS SLIDING SCALE SQ 07/29/17 21:00 08/02/17 20:34 Sodium Chloride 1,000 ml @ 30 mls/hr Q24H IV 07/30/17 13:15 08/02/17 13:56 (Ecotrin Ec) 81 mg DAILY PO 07/31/17 09:00 08/02/17 09:32 (Morphine Inj) 5 mg Q2H PRN IV PUSH 07/30/17 14:00 07/30/17 22:03 (Levemir Inj) 20 units DAILY SQ 07/31/17 09:00 08/02/17 09:33 (Ativan Inj) 0.5 mg Q6H PRN IV 07/31/17 03:15 08/03/17 02:59 (Phenergan Inj) 25 mg Q6H PRN IV-CENTRAL 07/31/17 03:15 (Heparin Inj) 5,000 units BID SQ 07/31/17 21:00 08/02/17 19:45 Cefazolin Sodium/ Dextrose 50 ml @ 100 mls/hr Q8H IV 08/01/17 12:00 08/03/17 02:56 Levofloxacin/ Dextrose 150 ml @ 100 mls/hr Q24H IV 08/01/17 18:00 08/02/17 17:47 (Lopressor) 100 mg Q12H PO 08/03/17 15:00 (Imdur) 60 mg DAILY@07 PO 08/04/17 07:00 (Lasix) 40 mg BID@, PO 08/03/17 09:00 A/P Assessment and Plan Assessment and Plan- 57-year-old male admitted secondary to NSTEMI with left lower extremity osteomyelitis Vomiting egd planned Non-ST elevation NV Continue Nitropaste Continue heparin bid sc oxygen Cardiology following, -medical management Diabetic ulcers Left lower extremity foot infection Septic arthritis left lower extremity Continue IV Levaquin Continue IV vancomycin ID following Follow CBC Podiatry following Patient has had multiple recommendations for amputation of the left lower extremity. He has been refusing to do this. Vascular surgery consultation done, pt refused amputation as noted again. Chronic anemia Anemia of chronic disease Follow CBC Chronic kidney disease stage III Monitor renal function Atrial fibrillation Follow on telemetry Hypertension Continue baseline treatment Follow blood pressures Adjust treatments as needed DVT prophylaxis Heparin Arthur Cortez MD Aug 03, 2017 07:19
--- NOTE | 2017-08-03 07:58 | PD.CARD.PN ---
Subjective Subjective Remarks No CP, dyspnea, dizziness, palpitations. No nausea, abdominal pain. Objective Medications Item Value Date Time Metoprolol 75 mg 07/31/17 1500 Tartrate Q12H/PO 08/03/17 0255 (Lopressor) Aspirin 81 mg 07/31/17 0900 (Ecotrin Ec) DAILY/PO 08/02/17 0932 Furosemide 40 mg 07/31/17 0900 (Lasix Inj) BID@/IV PUSH 08/02/17 1748 Nitroglycerin 1 inch 07/30/17 0000 (Nitroglycerin Q6HR/TOPICAL 2% Oint) Current Medications Medications (Trade) Dose Ordered Sig/Tri Route Start Time Stop Time Status Last Admin (KCl) 10 meq BID PO 07/29/17 21:00 08/02/17 19:45 (Flomax) 0.4 mg HS PO 07/29/17 21:00 08/02/17 19:45 (Prinivil) 2.5 mg DAILY PO 07/30/17 09:00 Future Hold 07/30/17 09:19 (Pill Splitter) 1 ea UNSCH PRN OTHER 07/29/17 20:30 (NS Flush) 2 ml UNSCH PRN IV FLUSH 07/29/17 20:30 (NS Flush) 2 ml BID IV FLUSH 07/29/17 21:00 08/02/17 19:46 (Tylenol) 650 mg Q4H PRN PO 07/29/17 20:30 (Zofran Inj) 4 mg Q6H PRN IVP 07/29/17 20:30 08/01/17 17:01 (Restoril) 15 mg HS PRN PO 07/29/17 20:30 (Narcan Inj) 0.4 mg UNSCH PRN IV PUSH 07/29/17 20:30 (Emelia-Colace) 1 tab BID PO 07/29/17 21:00 08/02/17 19:45 (Milk Of Magnesia Liq) 30 ml Q12H PRN PO 07/29/17 20:30 08/02/17 09:33 (Senokot) 17.2 mg Q12H PRN PO 07/29/17 20:30 (Dulcolax Supp) 10 mg DAILY PRN RECTAL 07/29/17 20:30 (Lactulose Liq) 30 ml DAILY PRN PO 07/29/17 20:30 (Ativan) 0.5 mg Q8H PRN PO 07/29/17 20:30 (Catapres) 0.1 mg Q6H PRN PO 07/29/17 20:30 (Dilaudid Pf Inj) 0.5 mg Q4H PRN IV 07/29/17 20:45 08/03/17 04:53 (Nitroglycerin 2% Oint) 1 inch Q6HR TOPICAL 07/30/17 00:00 08/02/17 23:24 (Protonix Inj) 40 mg Q24H IV PUSH 07/30/17 21:00 08/02/17 19:45 (Percocet 10-325 Mg) 1 tab Q4H PRN PO 07/29/17 20:30 07/30/17 13:03 (D50w (Vial) Inj) 50 ml UNSCH PRN IV PUSH 07/29/17 20:45 (Glucagon Inj) 1 mg UNSCH PRN OTHER 07/29/17 20:45 (NovoLOG SUPPLEMENTAL SCALE) 1 ACHS SLIDING SCALE SQ 07/29/17 21:00 08/02/17 20:34 Sodium Chloride 1,000 ml @ 30 mls/hr Q24H IV 07/30/17 13:15 08/02/17 13:56 (Ecotrin Ec) 81 mg DAILY PO 07/31/17 09:00 08/02/17 09:32 (Morphine Inj) 5 mg Q2H PRN IV PUSH 07/30/17 14:00 07/30/17 22:03 (Levemir Inj) 20 units DAILY SQ 07/31/17 09:00 08/02/17 09:33 (Ativan Inj) 0.5 mg Q6H PRN IV 07/31/17 03:15 08/03/17 02:59 (Phenergan Inj) 25 mg Q6H PRN IV-CENTRAL 07/31/17 03:15 (Lasix Inj) 40 mg BID@,18 IV PUSH 07/31/17 09:00 08/02/17 17:48 (Heparin Inj) 5,000 units BID SQ 07/31/17 21:00 08/02/17 19:45 (Lopressor) 75 mg Q12H PO 07/31/17 15:00 08/03/17 02:55 Cefazolin Sodium/ Dextrose 50 ml @ 100 mls/hr Q8H IV 08/01/17 12:00 08/03/17 02:56 Levofloxacin/ Dextrose 150 ml @ 100 mls/hr Q24H IV 08/01/17 18:00 08/02/17 17:47 Vital Signs / I&O Vital Signs Date Time Temp Pulse Resp B/P (MAP) Pulse Ox O2 Delivery O2 Flow Rate FiO2 08/03/17 06:00 92 08/03/17 05:00 91 08/03/17 04:00 Room Air 08/03/17 04:00 98.2 89 18 131/84 (100) 95 08/03/17 04:00 89 08/03/17 03:00 91 08/03/17 02:00 87 08/03/17 01:00 90 08/03/17 00:00 98.0 85 20 136/86 (103) 100 08/03/17 00:00 96 08/03/17 00:00 Room Air 08/02/17 23:00 92 08/02/17 22:00 87 08/02/17 21:36 21 08/02/17 21:00 88 08/02/17 20:00 Room Air 08/02/17 20:00 85 08/02/17 20:00 Room Air 08/02/17 20:00 98.0 85 20 150/84 (106) 100 08/02/17 18:00 100 08/02/17 17:00 96 08/02/17 16:30 97.8 94 19 113/79 (90) 100 08/02/17 16:00 88 08/02/17 15:00 87 08/02/17 14:00 104 08/02/17 13:00 100 08/02/17 12:00 98.0 102 19 129/89 (102) 99 08/02/17 12:00 99 Room Air 08/02/17 12:00 87 08/02/17 10:00 100 08/02/17 09:00 90 08/02/17 08:00 94 Room Air 08/02/17 08:00 92 I/O 08/02/17 08/02/17 08/02/17 08/03/17 08/03/17 08/03/17 07:00 15:00 23:00 07:00 15:00 23:00 Intake Total 480 ml 750 ml Output Total 800 ml 900 ml Balance -320 ml -150 ml Intake Oral 480 ml 750 ml Output Urine Total 800 ml 900 ml # Bowel Movements 0 0 Physical Exam GENERAL: Well developed, well nourished. No acute distress. HEENT: Jugular venous pressure is normal. CHEST: Lungs clear to auscultation anteriorly. CARDIAC: Regular rate and rhythm without S3, S4, or murmur. ABDOMEN: Soft, nontender, no hepatosplenomegaly. Bowel sounds present. EXTREMITIES: No clubbing, cyanosis. Trace pretibial edema. Assessment and Plan Problem List: (1) CAD (coronary artery disease) ICD Codes: I25.10 - Atherosclerotic heart disease of [place] coronary artery without angina pectoris Status: Chronic Plan: Stable over the weekend. No further atypical CP. Troponin increases possibly in part due to renal insufficiency. No ischemia noted on nuclear stress test imaging last month. REC medical therapy of his CAD change to oral nitrate increase metoprolol dosing continue aspirin add ABBY-I will f/u as needed, patient cleared for any GI procedures needed (2) Ischemic cardiomyopathy ICD Codes: I25.5 - Ischemic cardiomyopathy Status: Chronic Plan: EF 40-45% on recent echo. Overall stable, compensated. Continue beta pollo, maximize dose, add ABBY-I. Change back to oral furosemide. (3) Paroxysmal atrial fibrillation ICD Codes: I48.0 - Paroxysmal atrial fibrillation Status: Chronic Plan: Remains in NSR. Thromboembolic risk at least moderately elevated. Patient has declined anticoagulation therapy in the past. Rec continue daily aspirin. Code Status full code Discussed Condition With patient Problem Qualifiers (1) CAD (coronary artery disease): Qualified Codes: I25.110 - Atherosclerotic heart disease of [place] coronary artery with unstable angina pectoris Rogelio Jaramillo MD Aug 03, 2017 07:58
[2017-08-03] MEDS: INSULIN ASPART SUPPLEMENTAL SCALE SQ SCH ×4 (08:00→21:03)
[2017-08-03] MEDS: HEPARIN SODIUM - SQ 10,000 UNITS/ML VIAL SQ SCH ×2 (09:00→21:05)
[2017-08-03] MEDS: FUROSEMIDE 40 MG TAB PO SCH ×2 (09:00→19:51)
[2017-08-03] MEDS: ASPIRIN EC 81 MG TABEC PO SCH (09:00)
[2017-08-03] MEDS: POTASSIUM CHLORIDE 10 MEQ CONTROLLED RELEASE TAB PO SCH ×2 (09:00→21:05)
[2017-08-03] MEDS: INSULIN DETEMIR 100 UNITS/ML VIAL SQ SCH (09:00)
--- NOTE | 2017-08-03 11:10 | HHI.GIFU ---
Subjective Remarks Patient grumpy not been very cooperative but denies any pain Objective Vitals I&O Vital Signs Date Time Temp Pulse Resp B/P (MAP) Pulse Ox O2 Delivery O2 Flow Rate FiO2 08/03/17 06:00 92 08/03/17 05:00 91 08/03/17 04:00 Room Air 08/03/17 04:00 98.2 89 18 131/84 (100) 95 08/03/17 04:00 89 08/03/17 03:00 91 08/03/17 02:00 87 08/03/17 01:00 90 08/03/17 00:00 98.0 85 20 136/86 (103) 100 08/03/17 00:00 96 08/03/17 00:00 Room Air 08/02/17 23:00 92 08/02/17 22:00 87 08/02/17 21:36 21 08/02/17 21:00 88 08/02/17 20:00 Room Air 08/02/17 20:00 85 08/02/17 20:00 Room Air 08/02/17 20:00 98.0 85 20 150/84 (106) 100 08/02/17 18:00 100 08/02/17 17:00 96 08/02/17 16:30 97.8 94 19 113/79 (90) 100 08/02/17 16:00 88 08/02/17 15:00 87 08/02/17 14:00 104 08/02/17 13:00 100 08/02/17 12:00 98.0 102 19 129/89 (102) 99 08/02/17 12:00 99 Room Air 08/02/17 12:00 87 I/O 08/02/17 08/02/17 08/02/17 08/03/17 08/03/17 08/03/17 07:00 15:00 23:00 07:00 15:00 23:00 Intake Total 480 ml 750 ml Output Total 800 ml 900 ml Balance -320 ml -150 ml Intake Oral 480 ml 750 ml Output Urine Total 800 ml 900 ml # Bowel Movements 0 0 Laboratory Date/Time Source Procedure Growth Status 07/30/17 01:15 Blood Peripheral Aerobic Blood Culture - Preliminary NO GROWTH IN 4 DAYS Resulted 07/30/17 01:15 Blood Peripheral Anaerobic Blood Culture - Preliminary NO GROWTH IN 4 DAYS Resulted Physical Exam HEENT: Normocephalic; atraumatic CHEST: Even/unlabored CARDIAC: RRR ABDOMEN: Distended, sot, nontender, bowel sounds active EXTREMITIES: BLE edema SKIN: Normal; no rash; no jaundice. [employer]: No focal deficits; alert and oriented times three. Assessment and Plan Plan - vomiting - frequent vomiting for 5 days. unclear etiology...2/2 NSTEMI vs constipation vs obstruction vs ileus vs gastritis - anemia - microcytic, hypochromic, no obvious bleeding although he did have hematemesis at recent admission s/p2 x PRBC. INR 1.8 never had EGD or colonoscopy - elevated troponins - cardiology consult pending (07/31) --> Pt S/P NGT to LIWS- with 1000cc of bile colored fluid in suction canister. Pt denies any continued nausea or vomiting. Reports some improvement in abdominal pain. No BM since Thursday. KUB (07/30) --> No bowel obstruction, ileus or free air. Troponin remains elevated, however pt has renal insufficiency. H/H remains low 8.8/26.4 S/P 2 U PRBCs yesterday. Pt to be started on Heparin BID tonight, also on baby ASA. Remains on Protonix. Transaminitis- Elevated LFTs- not elevated during last hospital admission. AST-389 ALT-84 Alk phos-408 T bili-0.4. ? Medication induced vs possible CHF? Will order liver BRYANT and US. (08/01) NGT no longer in place, pt states it came out in the night, he is unsure what happened. Denies nausea, vomiting, abdominal pain. Unsure when his last BM was, no BM documented by RN. H/H remains stable. Liver US --> Limited exam due to extensive bowel gas and pts inability to cooperate. There is slightly prominent with increased echogenicity suggesting some degree of fatty infiltration. Ascites. bilateral pleural effusions. Liver BRYANT pending. (08/02) --> Pt with no GI complaints at this time. Liver BRYANT still pending. Plan remains the same for EGD tomorrow with cardiac clearance. Awaiting cardiology to see. Need Heparin held if morning if we can proceed with procedure. Will keep pt NPO after MN and obtain consent. H/H stable. PLAN - EGD to follow - Liver work up pending but most likely cause of liver elevation is multifactorial with underlying cardiac disease - Further recommendations to follow based on results of above Sheng Jennings MD Aug 03, 2017 11:10
--- NOTE | 2017-08-03 11:23 | MB ---
cc: LARISA BECKER MD DATE OF CONSULTATION: 08/02/[address] Becker, Vascular Surgery. REASON FOR CONSULTATION Left and right leg Charcot's joint and gangrene of the left ankle. HISTORY OF PRESENT ILLNESS This 57-year-old male is known to me from previous admission. He presents now to the emergency room with nausea and vomiting for about a week. He was noted to have elevated troponins and non ST IA. He is now admitted for further care, in the process again the leg is addressed as a problem. At the time he grew acinetobacter and Staph aureus as well as Beta-group Streptococcus from the blood. He was going to continue IV antibiotics at home but apparently that never happened. At the last admission he was recommended to have left below-knee amputation. He adamantly rejected this and in general is noncompliant with his care. At this point question arises again about this problem. PAST MEDICAL HISTORY 1. Diabetes mellitus. 2. Chronic atrial fibrillation. 3. Chronic renal insufficiency. 4. Coronary artery disease with prior stenting. 5. Charcot's feet. PAST SURGICAL HISTORY 1. Bilateral fifth toe amputation. 2. Some sort of surgery on his Charcot's joint by some outpatient place. MEDICATION Medications can be found on the chart. PHYSICAL EXAMINATION HEENT: Physical examination reveals a 57-year-old male normocephalic. No trauma to the head. Pupils equally reactive. Extraocular muscles intact. NECK: Neck is supple, bilateral carotid pulses. No bruits. CHEST: Bilateral breath sounds. HEART: Regular rhythm. ABDOMEN: Abdomen is soft. Active bowel sounds. No rebound or guarding. EXTREMITIES: Within normal limits in the upper portions. The patient has obviously swelling of the left ankle with ulceration and wet area of granulation. There is a dry ulcer as well on the medial aspect of the ankle and both ankles are turned inward consistent with Charcot's joint. IMPRESSION Septic arthritis of the left Charcot's joint and positive blood cultures. At this point I highly recommend below-knee amputation. This patient will develop eventually endocarditis and from this if he does not have surgery. I have explained this to the patient in detail at last admission, this admission and he essentially blew me off and does not want anything to do with surgery. So if the patient changes his mind I will be available. Thank you much for the referral. Larisa EPPS /10:43 AM /11:06 AM
[2017-08-03] MEDS ORDERED: LIDOCAINE HCL 1% PF 5 ML SYRINGE OTHER ONE (12:00)
[2017-08-03] MEDS ORDERED: PROPOFOL 200 MG/20 ML AMP IV ONE (12:00)
[2017-08-03 13:01] LABS: ANA SCREEN NEG (NEG)
[2017-08-03] MEDS: SODIUM CHLOR 0.9% 1000 ML INJ 1,000 ML IV SCH (13:15)
--- NOTE | 2017-08-03 13:16 | PD.PROCEDR ---
GI Procedure PROCEDURE PERFORMED EGD with biopsy INDICATION FOR PROCEDURE Nausea vomiting, anemia PROCEDURE: The procedure, risks and benefits were discussed with Mr. Lucas and informed consent was obtained. Anesthesia sedated him with Diprivan. He was placed in the left lateral decubitus position. EGD: The Pentax videoscope was introduced through the oropharynx and advanced to the second portion of the duodenum under direct visualization. Retroflexion was performed in the stomach. 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
[2017-08-03] MEDS: METOPROLOL TARTRATE 100 MG TAB PO SCH (14:37)
[2017-08-03] MEDS: LISINOPRIL 5 MG TAB PO SCH (14:37)
[2017-08-03] MEDS: SODIUM CHLORIDE 0.9% FLUSH 10 ML FLUSH IV FLUSH SCH ×2 (14:37→21:00)
[2017-08-03] MEDS: DOCUSATE SODIUM 50 MG/SENNA 8.6 MG TAB PO SCH ×2 (14:37→21:05)
[2017-08-03 15:51] LABS: HEPATITIS A AB IGM NEGATIVE (NEGATIVE); HEPATITIS B CORE AB IGM NEGATIVE (NEGATIVE)
[2017-08-03] MEDS: LEVOFLOXACIN 750 MG/DEXTROSE 150 ML IV SCH (19:52)
[2017-08-03] MEDS: ONDANSETRON HCL 4 MG/2 ML VIAL IVP PRN (21:03)
[2017-08-03] MEDS: PANTOPRAZOLE SODIUM 40 MG VIAL IV PUSH SCH (21:04)
[2017-08-03] MEDS: TAMSULOSIN HCL 0.4 MG CAP PO SCH (21:05)
[2017-08-04] VITALS (27 sets, daily range): BP systolic 116–129; BP diastolic 71–88; PULSE 62–98; RESP 16–20; TEMP 97.5–97.9; O2SAT 98–100
[2017-08-04] MEDS: ceFAZolin 2 GM PREMIX 50 ML IV SCH ×3 (02:46→22:44)
[2017-08-04] MEDS: METOPROLOL TARTRATE 100 MG TAB PO SCH ×2 (02:46→16:11)
[2017-08-04] MEDS: ISOSORBIDE MONONITRATE 60 MG CR TAB (IMDUR) PO SCH (05:24)
[2017-08-04 06:53] LABS: AUTOMATED NEUTROPHIL # 5.3 TH/MM3 (1.8-7.7); BASOPHIL % 0.2 % (0.0-2.0); EOSINOPHIL # 0.2 TH/MM3 (0-0.4); EOSINOPHIL % 2.4 % (0.0-4.0); HEMATOCRIT 28.2 % (39.0-51.0); HEMOGLOBIN 9.2 GM/DL (13.0-17.0); LYMPH % 15.4 % (9.0-44.0); LYMPHOCYTE # 1.1 TH/MM3 (1.0-4.8); MEAN CELL VOLUME 74.9 FL (80.0-100.0); MEAN CORPUSCULAR HEMOGLOBIN 24.6 PG (27.0-34.0); MEAN CORPUSCULAR HGB CONC 32.8 % (32.0-36.0); MEAN PLATELET VOLUME 7.3 FL (7.0-11.0); MONOCYTE # 0.7 TH/MM3 (0-0.9); PLATELET COUNT 252 TH/MM3 (150-450); RED BLOOD COUNT 3.76 MIL/MM3 (4.50-5.90); RED CELL DISTRIBUTION WIDTH 23.7 % (11.6-17.2); WHITE BLOOD COUNT 7.3 TH/MM3 (4.0-11.0)
[2017-08-04 07:12] LABS: CREATININE 1.29 MG/DL (0.60-1.30)
[2017-08-04] MEDS: LISINOPRIL 5 MG TAB PO SCH (09:17)
[2017-08-04] MEDS: HYDROmorphone HCL PF 2 MG/ML VIAL IV PRN ×2 (09:17→22:57)
[2017-08-04] MEDS: INSULIN DETEMIR 100 UNITS/ML VIAL SQ SCH (09:17)
[2017-08-04] MEDS: SODIUM CHLORIDE 0.9% FLUSH 10 ML FLUSH IV FLUSH SCH ×2 (09:18→22:45)
[2017-08-04] MEDS: FUROSEMIDE 40 MG TAB PO SCH ×2 (09:18→16:10)
[2017-08-04] MEDS: DOCUSATE SODIUM 50 MG/SENNA 8.6 MG TAB PO SCH ×2 (09:18→22:46)
[2017-08-04] MEDS: POTASSIUM CHLORIDE 10 MEQ CONTROLLED RELEASE TAB PO SCH ×2 (09:18→22:46)
[2017-08-04] MEDS: ASPIRIN EC 81 MG TABEC PO SCH (09:18)
[2017-08-04] MEDS: INSULIN ASPART SUPPLEMENTAL SCALE SQ SCH ×4 (09:19→21:00)
[2017-08-04] MEDS: HEPARIN SODIUM - SQ 10,000 UNITS/ML VIAL SQ SCH ×2 (10:10→22:45)
--- NOTE | 2017-08-04 10:27 | HHI.FPPN ---
Subjective Remarks pt wants to dc to SNF d/w RN Objective Vitals Vital Signs Date Time Temp Pulse Resp B/P (MAP) Pulse Ox O2 Delivery O2 Flow Rate FiO2 08/04/17 07:57 100 Nasal Cannula 2.00 08/04/17 07:57 97.9 91 20 117/84 (95) 100 08/04/17 06:43 62 08/04/17 05:02 92 08/04/17 04:14 92 08/04/17 03:33 96 08/04/17 03:13 97.8 98 119/80 (93) 99 08/04/17 02:00 96 08/04/17 01:00 96 08/04/17 00:33 97.9 95 116/76 (89) 98 08/04/17 00:00 90 08/03/17 23:00 99 08/03/17 22:00 92 08/03/17 21:00 90 08/03/17 21:00 Room Air 08/03/17 20:00 95 08/03/17 19:00 93 08/03/17 19:00 98.2 102 122/84 (97) 97 08/03/17 17:27 96 21 08/03/17 15:00 98.0 102 18 119/80 (93) 98 08/03/17 14:48 98.1 100 16 121/84 (96) 96 08/03/17 14:00 113/79 (90) 08/03/17 12:30 90 18 121/77 (92) 08/03/17 12:00 99 08/03/17 12:00 95 21 08/03/17 11:41 101 130/79 (96) 98 08/03/17 11:15 95 Room Air 08/03/17 11:09 98 Nasal Cannula 2 08/03/17 11:08 97.7 93 18 115/69 (84) 90 08/03/17 11:00 101 I/O 08/03/17 08/03/17 08/03/17 08/04/17 08/04/17 08/04/17 07:00 15:00 23:00 07:00 15:00 23:00 Intake Total 750 ml 100 ml 200 ml 480 ml Output Total 900 ml 300 ml 400 ml 900 ml Balance -150 ml -200 ml -200 ml -420 ml Intake Oral 750 ml 200 ml 480 ml Other 100 ml Output Urine Total 900 ml 300 ml 400 ml 900 ml # Bowel Movements 0 Result Diagram: 08/04/17 0608/04/17 06 Objective Remarks GENERAL: SKIN: Warm and dry. large ulcerations LLE HEAD: Atraumatic. Normocephalic. EYES: Pupils equal and round. No scleral icterus. No injection or drainage. ENT: No nasal bleeding or discharge. Mucous membranes pink and moist. ngt c/d/ i NECK: Trachea midline. No JVD. CARDIOVASCULAR: Regular rate and rhythm. RESPIRATORY: No accessory muscle use. Clear to auscultation. Breath sounds equal bilaterally. GASTROINTESTINAL: Abdomen soft, non-tender, nondistended. Hepatic and splenic margins not palpable. MUSCULOSKELETAL: Extremities without clubbing, cyanosis, or edema. No obvious deformities. NEUROLOGICAL: Awake and alert. No obvious cranial nerve deficits. Motor grossly within normal limits. 1 out of 5 muscle strength in the arms and legs. Normal speech. PSYCHIATRIC: Appropriate mood and affect; insight and judgment normal. Medications and IVs Current Medications Medications (Trade) Dose Ordered Sig/Tri Route Start Time Stop Time Status Last Admin (KCl) 10 meq BID PO 07/29/17 21:00 08/04/17 09:18 (Flomax) 0.4 mg HS PO 07/29/17 21:00 08/03/17 21:05 (Prinivil) 2.5 mg DAILY PO 07/30/17 09:00 Future hold 08/04/17 09:17 (Pill Splitter) 1 ea UNSCH PRN OTHER 07/29/17 20:30 (NS Flush) 2 ml UNSCH PRN IV FLUSH 07/29/17 20:30 (NS Flush) 2 ml BID IV FLUSH 07/29/17 21:00 08/04/17 09:18 (Tylenol) 650 mg Q4H PRN PO 07/29/17 20:30 (Zofran Inj) 4 mg Q6H PRN IVP 07/29/17 20:30 08/03/17 21:03 (Restoril) 15 mg HS PRN PO 07/29/17 20:30 (Narcan Inj) 0.4 mg UNSCH PRN IV PUSH 07/29/17 20:30 (Emelia-Colace) 1 tab BID PO 07/29/17 21:00 08/04/17 09:18 (Milk Of Magnesia Liq) 30 ml Q12H PRN PO 07/29/17 20:30 08/02/17 09:33 (Senokot) 17.2 mg Q12H PRN PO 07/29/17 20:30 (Dulcolax Supp) 10 mg DAILY PRN RECTAL 07/29/17 20:30 (Lactulose Liq) 30 ml DAILY PRN PO 07/29/17 20:30 (Ativan) 0.5 mg Q8H PRN PO 07/29/17 20:30 (Catapres) 0.1 mg Q6H PRN PO 07/29/17 20:30 (Dilaudid Pf Inj) 0.5 mg Q4H PRN IV 07/29/17 20:45 08/04/17 09:17 (Protonix Inj) 40 mg Q24H IV PUSH 07/30/17 21:00 08/03/17 21:04 (Percocet 10-325 Mg) 1 tab Q4H PRN PO 07/29/17 20:30 07/30/17 13:03 (D50w (Vial) Inj) 50 ml UNSCH PRN IV PUSH 07/29/17 20:45 (Glucagon Inj) 1 mg UNSCH PRN OTHER 07/29/17 20:45 (NovoLOG SUPPLEMENTAL SCALE) 1 ACHS SLIDING SCALE SQ 07/29/17 21:00 08/04/17 09:19 Sodium Chloride 1,000 ml @ 30 mls/hr Q24H IV 07/30/17 13:15 08/02/17 13:56 (Ecotrin Ec) 81 mg DAILY PO 07/31/17 09:00 08/04/17 09:18 (Morphine Inj) 5 mg Q2H PRN IV PUSH 07/30/17 14:00 07/30/17 22:03 (Levemir Inj) 20 units DAILY SQ 07/31/17 09:00 08/04/17 09:17 (Ativan Inj) 0.5 mg Q6H PRN IV 07/31/17 03:15 08/03/17 02:59 (Phenergan Inj) 25 mg Q6H PRN IV-CENTRAL 07/31/17 03:15 (Heparin Inj) 5,000 units BID SQ 2/9/18 21:00 08/04/17 10:10 Cefazolin Sodium/ Dextrose 50 ml @ 100 mls/hr Q8H IV 08/01/17 12:00 08/04/17 02:46 Levofloxacin/ Dextrose 150 ml @ 100 mls/hr Q24H IV 08/01/17 18:00 08/03/17 19:52 (Lopressor) 100 mg Q12H PO 08/03/17 15:00 08/04/17 02:46 (Imdur) 60 mg DAILY@07 PO 08/04/17 07:00 08/04/17 05:24 (Lasix) 40 mg BID@,18 PO 08/03/17 09:00 08/04/17 09:18 A/P Assessment and Plan Assessment and Plan- 57-year-old male admitted secondary to NSTEMI with left lower extremity osteomyelitis Vomiting- egd- Reflux esophagitis 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 He has been refusing to do this. Vascular surgery consultation done, pt refused amputation as noted again. Chronic anemia Anemia of chronic disease Follow CBC Chronic kidney disease stage III Monitor renal function Atrial fibrillation Follow on telemetry Hypertension Continue baseline treatment Follow blood pressures Adjust treatments as needed DVT prophylaxis Heparin dispo: dc to [facility] done, however finding placement Arthur Cortez MD Aug 04, 2017 10:27
--- NOTE | 2017-08-04 12:49 | HHI.GIFU ---
Subjective Remarks Pt resting in bed, no GI complaints at this time. Requesting 2% milk. (Andreina Buchanan) Objective Vitals I&O Vital Signs Date Time Temp Pulse Resp B/P (MAP) Pulse Ox O2 Delivery O2 Flow Rate FiO2 08/04/17 12:41 97.6 85 20 127/88 (101) 98 08/04/17 11:33 Nasal Cannula 2.00 08/04/17 10:00 84 08/04/17 09:00 94 08/04/17 08:00 88 08/04/17 07:57 100 Nasal Cannula 2.00 08/04/17 07:57 97.9 91 20 117/84 (95) 100 08/04/17 07:00 89 08/04/17 06:43 62 08/04/17 05:02 92 08/04/17 04:14 92 08/04/17 03:33 96 08/04/17 03:13 97.8 98 119/80 (93) 99 08/04/17 02:00 96 08/04/17 01:00 96 08/04/17 00:33 97.9 95 116/76 (89) 98 08/04/17 00:00 90 08/03/17 23:00 99 08/03/17 22:00 92 08/03/17 21:00 90 08/03/17 21:00 Room Air 08/03/17 20:00 95 08/03/17 19:00 93 08/03/17 19:00 98.2 102 122/84 (97) 97 08/03/17 17:27 96 21 08/03/17 15:00 98.0 102 18 119/80 (93) 98 08/03/17 14:48 98.1 100 16 121/84 (96) 96 08/03/17 14:00 113/79 (90) I/O 08/03/17 08/03/17 08/03/17 08/04/17 08/04/17 08/04/17 07:00 15:00 23:00 07:00 15:00 23:00 Intake Total 750 ml 100 ml 200 ml 480 ml Output Total 900 ml 300 ml 400 ml 900 ml Balance -150 ml -200 ml -200 ml -420 ml Intake Oral 750 ml 200 ml 480 ml Other 100 ml Output Urine Total 900 ml 300 ml 400 ml 900 ml # Bowel Movements 0 Laboratory Laboratory Tests Test 08/04/17 06:00 White Blood Count 7.3 Red Blood Count 3.76 Hemoglobin 9.2 Hematocrit 28.2 Mean Corpuscular Volume 74.9 Mean Corpuscular Hemoglobin 24.6 Mean Corpuscular Hemoglobin Concent 32.8 Red Cell Distribution Width 23.7 Platelet Count 252 Mean Platelet Volume 7.3 Neutrophils (%) (Auto) 73.0 Lymphocytes (%) (Auto) 15.4 Monocytes (%) (Auto) 9.0 Eosinophils (%) (Auto) 2.4 Basophils (%) (Auto) 0.2 Neutrophils # (Auto) 5.3 Lymphocytes # (Auto) 1.1 Monocytes # (Auto) 0.7 Eosinophils # (Auto) 0.2 Basophils # (Auto) 0.0 CBC Comment DIFF FINAL Differential Comment Blood Urea Nitrogen 33 Creatinine 1.29 Random Glucose 179 Calcium Level 8.0 Sodium Level 133 Potassium Level 4.5 Chloride Level 100 Carbon Dioxide Level 26.0 Anion Gap 7 Estimat Glomerular Filtration Rate 57 Date/Time Source Procedure Growth Status 07/30/17 01:15 Blood Peripheral Aerobic Blood Culture - Final NO GROWTH IN 5 DAYS Complete 07/30/17 01:15 Blood Peripheral Anaerobic Blood Culture - Final NO GROWTH IN 5 DAYS Complete Imaging Last Impressions Abdomen/Pelvis CT 08/01/17 0000 Signed Impressions: Service Date/Time: Tuesday, August 01, 2017 14:04 - CONCLUSION: 1. No dilated loops of small or large bowel. 2. Nonobstructing 4 mm calcified stone upper pole right kidney. 3. Cystic lesion upper pole left kidney with thin rim calcification; Bosniak 2 lesion should be followed with next examination in 6- 9 months. 4. Bilateral pleural effusions, right greater than left and multifocal areas of consolidation in the lower right lung. Davin Willett MD Liver Ultrasound 07/31/17 0000 Signed Impressions: Service Date/Time: Monday, July 31, 2017 15:35 - CONCLUSION: 1. Limited examination due to extensive bowel gas and patient's inability to cooperate with the exam. 2. Liver is slightly prominent with increased echogenicity suggesting some degree of fatty infiltration. 3. Ascites. Bilateral pleural effusions. Chau Silvestre MD Abdomen X-Ray 07/30/17 0000 Signed Impressions: Service Date/Time: July 14:48 - CONCLUSION: No bowel obstruction, ileus or free air. Degenerative changes and scoliosis of the thoracolumbar spine. Nixon Garcia MD Chest X-Ray 07/29/17 1710 Signed Impressions: Service Date/Time: Saturday, July 29, 2017 17:43 - CONCLUSION: Small bilateral effusions and slight persistent parenchymal opacity at the left lung base. Drake Espinal MD Physical Exam HEENT: Normocephalic; atraumatic CHEST: Even/unlabored CARDIAC: RRR ABDOMEN: Distended, sot, nontender, bowel sounds active EXTREMITIES: BLE edema SKIN: Normal; no rash; no jaundice. 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 (Andreina Buchanan) Assessment and Plan Plan - vomiting - frequent vomiting for 5 days. unclear etiology...2 NSTEMI vs constipation vs obstruction vs ileus vs gastritis - anemia - microcytic, hypochromic, no obvious bleeding although he did have hematemesis at recent admission s/p2 x PRBC. INR 1.8 never had EGD or colonoscopy - elevated troponins - cardiology consult pending (07/31) --> Pt S/P NGT to LIWS- with 1000cc of bile colored fluid in suction canister. Pt denies any continued nausea or vomiting. Reports some improvement in abdominal pain. No BM since Thursday. KUB (07/30) --> No bowel obstruction, ileus or free air. Troponin remains elevated, however pt has renal insufficiency. H/H remains low 8.8/26.4 S/P 2 U PRBCs yesterday. Pt to be started on Heparin BID tonight, also on baby ASA. Remains on Protonix. Transaminitis- Elevated LFTs- not elevated during last hospital admission. AST-389 ALT-84 Alk phos-408 T bili-0.4. ? Medication induced vs possible CHF? Will order liver BRYANT and US. (08/01) NGT no longer in place, pt states it came out in the night, he is unsure what happened. Denies nausea, vomiting, abdominal pain. Unsure when his last BM was, no BM documented by RN. H/H remains stable. Liver US --> Limited exam due to extensive bowel gas and pts inability to cooperate. There is slightly prominent with increased echogenicity suggesting some degree of fatty infiltration. Ascites. bilateral pleural effusions. Liver BRYANT pending. (08/02) --> Pt with no GI complaints at this time. Liver BRYANT still pending. Plan remains the same for EGD tomorrow with cardiac clearance. Awaiting cardiology to see. Need Heparin held if morning if we can proceed with procedure. Will keep pt NPO after MN and obtain consent. H/H stable. (08/04) --> S/P EGD yesterday --> Reflux esophagitis, possible Mock's esophagus, hiatal hernia. Biopsy pending. H/H stable. No GI complaints at this time. PLAN - Biopsy pending - Repeat EGD in 2 months - Protonix PO BID - GI will sign off, please reconsult as needed Pt has been seen and examined by myself and Dr. Jennings and this note is written on his behalf (Andreina Buchanan) Physician Comments Patient seen and examined Agree with above Continue with current supportive care Monitor labs Patient follow-up with GI post discharge Not much to add from a GI perspective at this point we will sign off (Sheng Jennings MD) Andreina Buchanan Aug 04, 2017 12:49 Shegn Jennings MD Aug 04, 2017 15:35
[2017-08-04] MEDS: oxyCODONE/ACETAMINOPHEN 10 MG/325 MG TAB PO PRN (12:58)
[2017-08-04] MEDS: SODIUM CHLOR 0.9% 1000 ML INJ 1,000 ML IV SCH (12:58)
[2017-08-04 13:46] LABS: SMOOTH MUSCLE TOTAL AUTOABS Negative (Negative)
[2017-08-04] MEDS: LEVOFLOXACIN 750 MG/DEXTROSE 150 ML IV SCH (16:11)
[2017-08-04] MEDS: TAMSULOSIN HCL 0.4 MG CAP PO SCH (22:45)
[2017-08-04] MEDS: PANTOPRAZOLE SODIUM 40 MG VIAL IV PUSH SCH (22:46)
[2017-08-04] MEDS: ONDANSETRON HCL 4 MG/2 ML VIAL IVP PRN (23:28)
[2017-08-05] VITALS (26 sets, daily range): BP systolic 130–149; BP diastolic 75–97; PULSE 72–101; RESP 16–18; TEMP 97.3–98.2; O2SAT 94–100
[2017-08-05] MEDS: ISOSORBIDE MONONITRATE 60 MG CR TAB (IMDUR) PO SCH (05:19)
[2017-08-05] MEDS: ceFAZolin 2 GM PREMIX 50 ML IV SCH ×3 (05:19→22:07)
[2017-08-05] MEDS: METOPROLOL TARTRATE 100 MG TAB PO SCH ×2 (05:19→14:27)
[2017-08-05] MEDS: INSULIN ASPART SUPPLEMENTAL SCALE SQ SCH ×4 (08:00→22:08)
[2017-08-05] MEDS: FUROSEMIDE 40 MG TAB PO SCH ×2 (08:35→17:31)
[2017-08-05] MEDS: INSULIN DETEMIR 100 UNITS/ML VIAL SQ SCH (09:00)
[2017-08-05] MEDS: SODIUM CHLORIDE 0.9% FLUSH 10 ML FLUSH IV FLUSH SCH ×2 (09:00→22:06)
[2017-08-05] MEDS: DOCUSATE SODIUM 50 MG/SENNA 8.6 MG TAB PO SCH ×2 (09:00→21:00)
[2017-08-05] MEDS: POTASSIUM CHLORIDE 10 MEQ CONTROLLED RELEASE TAB PO SCH ×2 (09:02→22:04)
[2017-08-05] MEDS: ASPIRIN EC 81 MG TABEC PO SCH (09:04)
[2017-08-05] MEDS: LISINOPRIL 5 MG TAB PO SCH (09:04)
[2017-08-05] MEDS: HEPARIN SODIUM - SQ 10,000 UNITS/ML VIAL SQ SCH ×2 (09:04→22:05)
[2017-08-05] MEDS: ACETAMINOPHEN 325 MG TAB PO PRN ×3 (09:15→22:03)
[2017-08-05] MEDS ORDERED: OXYC-395 PO (10:01)
[2017-08-05] MEDS ORDERED: LORA-392 PO (10:01)
[2017-08-05] MEDS ORDERED: CEFA2SOL IV (10:02)
[2017-08-05] MEDS ORDERED: LEVO1INJ3 IV (10:04)
--- NOTE | 2017-08-05 10:05 | HHI.DCPOC ---
Discharge Care Plan Diagnosis: (1) Cellulitis of toe, right (2) CHF (congestive heart failure) (3) DM (diabetes mellitus) (4) Osteomyelitis of foot (5) Ocqpt-by-hxoxwff kidney injury (6) Osteomyelitis of ankle or foot, left, acute Goals to Promote Your Health * To prevent worsening of your condition and complications * To maintain your health at the optimal level Directions to Meet Your Goals Take your medications as prescribed Follow your dietary instruction Follow activity as directed Keep your appointments as scheduled Take your immunizations and boosters as scheduled If your symptoms worsen call your PCP, if no PCP go to Urgent Care Center or Emergency Room Smoking is Dangerous to Your Health. Avoid second hand smoke Call the 24-hour hour crisis hotline for domestic abuse at Arthur Cortez MD Aug 05, 2017 10:05
--- NOTE | 2017-08-05 10:05 | HHI.DS ---
Discharge Summary Admission Date Jul 29, 2017 at 20:17 Discharge Date: Aug 05, 2017 Admitting Diagnosis NSTEMI (1) Osteomyelitis of foot ICD Codes: M86.9 - Osteomyelitis, unspecified Status: Chronic (2) Pxoma-uf-gfacgwv kidney injury ICD Codes: N17.9 - Acute kidney failure, unspecified; N18.9 - Chronic kidney disease, unspecified Status: Acute (3) DM (diabetes mellitus) ICD Codes: E11.9 - Type 2 diabetes mellitus without complications Status: Chronic (4) NSTEMI (non-ST elevation myocardial infarction) ICD Codes: I21.4 - Non-ST elevation (NSTEMI) myocardial infarction Status: Acute (5) CAD (coronary artery disease) ICD Codes: I25.10 - Atherosclerotic heart disease of [place] coronary artery without angina pectoris Status: Chronic (6) Ischemic cardiomyopathy ICD Codes: I25.5 - Ischemic cardiomyopathy Status: Chronic (7) Osteomyelitis of ankle or foot, left, acute ICD Codes: M86.172 - Other acute osteomyelitis, left ankle and foot CBC/BMP: 08/04/17 0600 08/04/17 0600 Significant Findings Laboratory Tests Test 08/04/17 06:00 Red Blood Count 3.76 MIL/MM3 (4.50-5.90) Hemoglobin 9.2 GM/DL (13.0-17.0) Hematocrit 28.2 % (39.0-51.0) Mean Corpuscular Volume 74.9 FL (80.0-100.0) Mean Corpuscular Hemoglobin 24.6 PG (27.0-34.0) Red Cell Distribution Width 23.7 % (11.6-17.2) Neutrophils (%) (Auto) 73.0 % (16.0-70.0) Monocytes (%) (Auto) 9.0 % (0.0-8.0) Blood Urea Nitrogen 33 MG/DL (7-18) Random Glucose 179 MG/DL (74-106) Calcium Level 8.0 MG/DL (8.5-10.1) Sodium Level 133 MEQ/L (136-145) Estimat Glomerular Filtration Rate 57 ML/MIN (>89) Pt Condition on Discharge: Stable Discharge Disposition: Discharge to SNF Discharge Instructions DIET: Follow Instructions for: Diabetic Diet Speech Therapy-Diet Recommenda: Other Activities you can perform: See Additionl Instruction New Medications: Cefazolin Inj (Cefazolin Inj) 2 Gm/50 Ml Bagp 2 GM IV Q8H for Infection for 30 Days, BAG 0 Refills Levofloxacin Inj (Levofloxacin Inj) 750 Mg/150 Ml Bagp 750 MG IV Q24H for Infection for 30 Days, BAG 0 Refills Oxycodone (Oxycodone) 10 Mg Tab 10 MG PO Q4H PRN for PAIN, #180 TAB 0 Refills Lorazepam (Ativan) 0.5 Mg Tab 0.5 MG PO Q8H PRN for SEVERE ANXIETY OR AGITATION, #60 TAB 0 Refills Continued Medications: Clotrimazole Topical (Anti-Fungal Topical) 1% Cream 1 APPLIC TOPICAL DAILY, #113 GM Diltiazem (Cardizem) 30 Mg Tab 30 MG PO QID for Angina, #120 TAB 0 Refills Epinephrine Inj (Epinephrine Inj) 1 Mg/Ml (1 Ml) Inj 0.3 MG SQ ONCE PRN for ALLERGIC REACTION, #1 VIAL Give with any signs of respiratory distress. Hydrocortisone Inj (Solu-Cortef Inj) 250 Mg/2 Ml Inj 250 MG IV PUSH ONCE PRN for ALLERGIC REACTION, #1 VIAL 0 Refills Give over 30-60 seconds. Insulin NPH (Human) (Isophane) Inj (Novolin N U-100 Inj) 100 Unit/Ml Inj 25 UNIT SQ HS Insulin NPH (Human) (Isophane) Inj (Novolin N U-100 Inj) 100 Unit/Ml Inj 35 UNIT SQ DAILY for Blood Sugar Management Insulin Regular (Human) Concentrate Inj (Humulin R U-500 (Concentrate) Inj) 10, 000 Unit/20 Ml Vial Unknown Dose SQ ACHS for Blood Sugar Management, VIAL 0 Refills Isosorbide Mononitrate ER (Isosorbide Mononitrate ER) 30 Mg Terry 30 MG PO DAILY for Prevent Chest Pain, #30 TAB 0 Refills Lisinopril (Lisinopril) 2.5 Mg Tab 2.5 MG PO DAILY, #30 TAB 0 Refills Metoprolol Tartrate (Metoprolol Tartrate) 25 Mg Tab 12.5 MG PO BID, #60 TAB 0 Refills Nitroglycerin SL (Nitrostat SL) 0.4 Mg Subl 0.4 MG SL DIRECTED PRN for CHEST PAIN, #100 TAB.SL 0 Refills 1 tablet under the tongue as needed for chest pain. Repeat every 5 minutes for a total of 3 DOSES or call 911 if NO relief. Promethazine (Phenergan) 25 Mg Tablet 25 MG PO Q6H PRN for NAUSEA OR VOMITING, TAB 0 Refills Tamsulosin (Flomax) 0.4 Mg Cap 0.4 MG PO HS for Manage Prostate Problems, #30 CAP 0 Refills Discontinued Medications: Acetaminophen (Tylenol Extra Strength) 500 Mg Tablet 500-1000 MG PO Q6HR PRN for MILD PAIN/TEMP ELEVATION Furosemide (Lasix) 40 Mg Tab 40 MG PO BID, #60 TAB 0 Refills Levofloxacin (Levaquin) 750 Mg Tablet 750 MG PO DAILY for Infection for 42 Days, #42 TAB 0 Refills Oxycodone (Oxycodone) 10 Mg Tab 10 MG PO Q6H PRN for PAIN, TAB 0 Refills Potassium Chloride ER (Potassium Chloride ER) 10 Meq Tab 10 MEQ PO BID for Electrolyte Replacement, #60 TAB 0 Refills Give with Lasix Arthur Cortez MD Aug 05, 2017 10:05
--- NOTE | 2017-08-05 13:45 | HHI.IDPN ---
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 Vital Signs Date Time Temp Pulse Resp B/P (MAP) Pulse Ox O2 Delivery O2 Flow Rate FiO2 08/05/17 11:15 97.4 87 18 140/91 (107) 97 08/05/17 11:01 85 08/05/17 10:40 97 21 08/05/17 10:00 80 08/05/17 09:00 92 08/05/17 08:01 97.6 101 18 149/89 (109) 95 08/05/17 08:01 95 Room Air 08/05/17 08:00 100 08/05/17 07:01 84 08/05/17 06:00 96 08/05/17 05:00 75 08/05/17 04:00 97.5 90 16 140/95 (110) 97 08/05/17 04:00 85 08/05/17 03:00 80 08/05/17 02:00 80 08/05/17 01:00 88 08/05/17 00:00 97.6 88 16 130/84 (99) 100 08/05/17 00:00 79 08/04/17 23:00 86 08/04/17 22:00 84 08/04/17 21:00 86 08/04/17 20:00 97.7 87 16 129/81 (97) 100 08/04/17 20:00 80 08/04/17 20:00 Room Air 08/04/17 18:00 76 08/04/17 18:00 97.5 80 18 119/71 (87) 98 08/04/17 17:04 83 08/04/17 16:20 91 08/04/17 15:00 73 08/04/17 14:00 78 . Laboratory Tests Test 08/04/17 06:00 White Blood Count 7.3 TH/MM3 Red Blood Count 3.76 MIL/MM3 Hemoglobin 9.2 GM/DL Hematocrit 28.2 % Mean Corpuscular Volume 74.9 FL Mean Corpuscular Hemoglobin 24.6 PG Mean Corpuscular Hemoglobin Concent 32.8 % Red Cell Distribution Width 23.7 % Platelet Count 252 TH/MM3 Mean Platelet Volume 7.3 FL Neutrophils (%) (Auto) 73.0 % Lymphocytes (%) (Auto) 15.4 % Monocytes (%) (Auto) 9.0 % Eosinophils (%) (Auto) 2.4 % Basophils (%) (Auto) 0.2 % Neutrophils # (Auto) 5.3 TH/MM3 Lymphocytes # (Auto) 1.1 TH/MM3 Monocytes # (Auto) 0.7 TH/MM3 Eosinophils # (Auto) 0.2 TH/MM3 Basophils # (Auto) 0.0 TH/MM3 CBC Comment DIFF FINAL Differential Comment Laboratory Tests Test 08/04/17 06:00 Blood Urea Nitrogen 33 MG/DL Creatinine 1.29 MG/DL Random Glucose 179 MG/DL Calcium Level 8.0 MG/DL Sodium Level 133 MEQ/L Potassium Level 4.5 MEQ/L Chloride Level 100 MEQ/L Carbon Dioxide Level 26.0 MEQ/L Anion Gap 7 MEQ/L Estimat Glomerular Filtration Rate 57 ML/MIN Imaging Last Impressions Abdomen/Pelvis CT 08/01/17 0000 Signed Impressions: Service Date/Time: Tuesday, August 01, 2017 14:04 - CONCLUSION: 1. No dilated loops of small or large bowel. 2. Nonobstructing 4 mm calcified stone upper pole right kidney. 3. Cystic lesion upper pole left kidney with thin rim calcification; Bosniak 2 lesion should be followed with next examination in 6- 9 months. 4. Bilateral pleural effusions, right greater than left and multifocal areas of consolidation in the lower right lung. Davin Willett MD Liver Ultrasound 07/31/17 0000 Signed Impressions: Service Date/Time: Monday, July 31, 2017 15:35 - CONCLUSION: 1. Limited examination due to extensive bowel gas and patient's inability to cooperate with the exam. 2. Liver is slightly prominent with increased echogenicity suggesting some degree of fatty infiltration. 3. Ascites. Bilateral pleural effusions. Chau Silvestre MD Abdomen X-Ray 07/30/17 0000 Signed Impressions: Service Date/Time: July 14:48 - CONCLUSION: No bowel obstruction, ileus or free air. Degenerative changes and scoliosis of the thoracolumbar spine. Nixon Garcia MD Chest X-Ray 07/29/17 1710 Signed Impressions: Service Date/Time: Saturday, July 29, 2017 17:43 - CONCLUSION: Small bilateral effusions and slight persistent parenchymal opacity at the left lung base. Drake Espinal MD Physical Exam This is a well-developed male who is awake and alert and in no acute distress. HEENT: Head atraumatic. Extraocular movements grossly intact, pupils reactive to light. No icterus. Oropharynx, moist mucosa. No lesions. LUNGS: Clear breath sounds bilateral which are diminished. HEART: Regular rate and rhythm. No discernible murmur. ABDOMEN: Bowel sounds present, soft, no tenderness appreciated. EXTREMITIES: The patient has Charcot's feet bilateral. The left ankle is swollen and has an ulceration which has no visible drainage. Dark discoloration cw hematoma L lateral mallelous ulceration with small amount of serosang dc. There is another ulceration at the lateral aspect of the left foot which is dry. There is hypertrophic appearance of the left ankle. NEUROLOGIC: No gross focal findings. PSYCHIATRIC: The patient calm and cooperative. LINES: PICC in place RUE w/o e/o infection Assessment & Plan Remarks ISepsis from infected L foot, MSSA on previous admission L foot DFI and likely osteo given the chronicity of the problem - extemnsive osteo, septic ankele, unsalvagible limb, but pt refusing amputaiton This is limb threatening, life threatening infeciton: pt potentioally can develop endocarditis NSTEMI Severe CHF prognosis for limb salavage is extremely poor, pt is at high risk for sepsis and further infectious coplications e.i. endocarditis, vertebral osteo and other conservative mngmnt with abx alone and/or I+D is not going to be successfull Apparently pt adamantly refuses only availbale treatment in his case (BKA) complete IV cefazoline and oral abx x 8 weeks (cefazoline) thru September 02 Levaquine x 6 wks for Acinetobacter coverage thru August 20 High likelyhood of clinical failure as well as risk of abx tx complications ( including and not limited to kidney and liver damage, C..diff, allergic reactions, bone marrow suppression etc) fu with Dr Cortez. Pt currently has no wallpaperer helper or ID to follow with OK to dc OPAT filled out Coty Wolf MD Aug 05, 2017 13:45
--- NOTE | 2017-08-05 13:49 | HHI.FF ---
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 [] May leave port accessed during therapy. [] May leave peripheral site accessed for duration of therapy. [x] If patient has SOB or respiratory distress, check oxygen saturation. If less than 90% or clinical signs of respiratory distress, administer oxygen at 2 L/min. via nasal cannula and notify physician. [x] Anaphylaxis/Reaction orders: * Stop infusion. * Keep IV line open with saline flush. * Notify physician. * Monitor vital signs every 15 minutes until symptoms resolve. * Check Oxygen saturation; Oxygen at 2 L/min. via nasal cannula if less than 90% or clinical signs of respiratory distress. * Administer diphenhydramine (Benadryl) 25 mg IV STAT, (unless patient has received as pre-med). May repeat once, if necessary. * Solu-Cortef 250 mg IVP over 30-60 seconds, use 100 mg vials for each dissolution. * Epinephrine (1mg/1 ml) 0.3 mg subcutaneously or IVP now with any signs of respiratory distress. * Check with physician for new additional pre-med orders if patient is re- challenged or re-treated. [x] May remove PICC line when treatment complete, after confirming with Physician. [x] If the patient is admitted to the hospital, the ED, or transferred via [facility] , complete transfer form including medication reconciliation order sheet. Laboratory Tests Weekly Labs: CBC w/diff, Creatinine, CRP, LFT's (Hepatic function test), SED Rate Coty Wolf MD Aug 05, 2017 13:49
[2017-08-05] MEDS ORDERED: LEVA750T9 PO (13:50)
[2017-08-05] MEDS ORDERED: EPIN1INJ21 SQ (13:51)
[2017-08-05] MEDS ORDERED: EPIN1INJ21 IV PUSH (13:51)
[2017-08-05] MEDS ORDERED: SOLU250I IV PUSH (13:51)
[2017-08-05] MEDS: HYDROmorphone HCL PF 2 MG/ML VIAL IV PRN ×3 (14:26→23:28)
[2017-08-05 16:50] LABS: ALPHA-1-ANTITRYPSIN 192 mg/dL (100 - 190); ALPHA-1-ANTITRYPSIN PHENOTYPE MS bands
[2017-08-05] MEDS: LEVOFLOXACIN 750 MG/DEXTROSE 150 ML IV SCH (17:30)
[2017-08-05] MEDS: TAMSULOSIN HCL 0.4 MG CAP PO SCH (22:05)
[2017-08-05] MEDS: PANTOPRAZOLE SODIUM 40 MG VIAL IV PUSH SCH (22:06)
[2017-08-05] MEDS: ONDANSETRON HCL 4 MG/2 ML VIAL IVP PRN (22:21)
[2017-08-06] VITALS (25 sets, daily range): BP systolic 109–145; BP diastolic 69–91; PULSE 66–86; RESP 18–20; TEMP 96.4–98.3; O2SAT 98–100
[2017-08-06 03:50] LABS: ENDOMYSIAL AB SCREEN ND (NEGATIVE); ENDOMYSIAL AB TITER ND (<1:5)
[2017-08-06] MEDS: METOPROLOL TARTRATE 100 MG TAB PO SCH ×2 (04:19→16:28)
[2017-08-06] MEDS: ceFAZolin 2 GM PREMIX 50 ML IV SCH ×3 (04:20→20:22)
[2017-08-06] MEDS: SODIUM CHLOR 0.9% 1000 ML INJ 1,000 ML IV SCH (05:15)
[2017-08-06] MEDS: ISOSORBIDE MONONITRATE 60 MG CR TAB (IMDUR) PO SCH (06:41)
[2017-08-06] MEDS: INSULIN ASPART SUPPLEMENTAL SCALE SQ SCH ×4 (08:00→21:22)
[2017-08-06] MEDS: DOCUSATE SODIUM 50 MG/SENNA 8.6 MG TAB PO SCH ×2 (09:00→20:20)
[2017-08-06] MEDS: SODIUM CHLORIDE 0.9% FLUSH 10 ML FLUSH IV FLUSH SCH ×2 (09:00→20:22)
[2017-08-06] MEDS: INSULIN DETEMIR 100 UNITS/ML VIAL SQ SCH (09:00)
[2017-08-06] MEDS: HEPARIN SODIUM - SQ 10,000 UNITS/ML VIAL SQ SCH ×2 (09:21→20:20)
[2017-08-06] MEDS: LISINOPRIL 5 MG TAB PO SCH (09:21)
[2017-08-06] MEDS: POTASSIUM CHLORIDE 10 MEQ CONTROLLED RELEASE TAB PO SCH ×2 (09:21→20:20)
[2017-08-06] MEDS: ASPIRIN EC 81 MG TABEC PO SCH (09:22)
[2017-08-06] MEDS: FUROSEMIDE 40 MG TAB PO SCH ×2 (09:22→17:59)
[2017-08-06] MEDS: ACETAMINOPHEN 325 MG TAB PO PRN ×2 (11:46→17:59)
[2017-08-06] MEDS: ONDANSETRON HCL 4 MG/2 ML VIAL IVP PRN (11:54)
[2017-08-06] MEDS: HYDROmorphone HCL PF 2 MG/ML VIAL IV PRN ×2 (13:32→20:21)
--- NOTE | 2017-08-06 16:29 | HHI.FPPN ---
Subjective Remarks pt more alert looks better d/w RN Objective Vitals Vital Signs Date Time Temp Pulse Resp B/P (MAP) Pulse Ox O2 Delivery O2 Flow Rate FiO2 08/06/17 15:01 97.2 82 18 127/81 (96) 99 08/06/17 11:45 97.7 80 18 140/91 (107) 98 08/06/17 10:34 98 21 08/06/17 08:45 96.4 75 18 109/69 (82) 100 08/06/17 08:45 96 Room Air 08/06/17 07:01 68 08/06/17 06:00 67 08/06/17 05:00 70 08/06/17 04:38 97.3 82 18 145/90 (108) 100 08/06/17 04:00 76 08/06/17 03:00 77 08/06/17 02:00 75 08/06/17 01:00 75 08/06/17 00:00 80 08/05/17 23:00 77 08/05/17 23:00 97.3 87 18 136/75 (95) 100 08/05/17 22:00 72 08/05/17 21:00 74 08/05/17 20:00 76 08/05/17 20:00 94 Room Air 08/05/17 20:00 97.4 84 18 137/92 (107) 94 08/05/17 19:00 78 08/05/17 18:01 89 08/05/17 17:50 99 21 08/05/17 17:01 83 I/O 08/05/17 08/05/17 08/05/17 08/06/17 08/06/17 08/06/17 07:00 15:00 23:00 07:00 15:00 23:00 Intake Total 240 ml 1146 ml 480 ml Output Total 600 ml 800 ml 1075 ml Balance -360 ml 346 ml -595 ml Intake Oral 240 ml 1146 ml 480 ml Output Urine Total 600 ml 800 ml 475 ml Emesis 600 ml # Voids 4 # Bowel Movements 2 0 Result Diagram: 08/04/17 0608/04/17 06 Objective Remarks GENERAL: SKIN: Warm and dry. large ulcerations LLE HEAD: Atraumatic. Normocephalic. EYES: Pupils equal and round. No scleral icterus. No injection or drainage. ENT: No nasal bleeding or discharge. Mucous membranes pink and moist. ngt c/d/ i NECK: Trachea midline. No JVD. CARDIOVASCULAR: Regular rate and rhythm. RESPIRATORY: No accessory muscle use. Clear to auscultation. Breath sounds equal bilaterally. GASTROINTESTINAL: Abdomen soft, non-tender, nondistended. Hepatic and splenic margins not palpable. MUSCULOSKELETAL: Extremities without clubbing, cyanosis, or edema. No obvious deformities. NEUROLOGICAL: Awake and alert. No obvious cranial nerve deficits. Motor grossly within normal limits. 1 out of 5 muscle strength in the arms and legs. Normal speech. PSYCHIATRIC: Appropriate mood and affect; insight and judgment normal. Medications and IVs Current Medications Medications (Trade) Dose Ordered Sig/Tri Route Start Time Stop Time Status Last Admin (KCl) 10 meq BID PO 07/29/17 21:00 08/06/17 09:21 (Flomax) 0.4 mg HS PO 07/29/17 21:00 08/05/17 22:05 (Prinivil) 2.5 mg DAILY PO 07/30/17 09:00 Future hold 08/06/17 09:21 (Pill Splitter) 1 ea UNSCH PRN OTHER 07/29/17 20:30 (NS Flush) 2 ml UNSCH PRN IV FLUSH 07/29/17 20:30 (NS Flush) 2 ml BID IV FLUSH 07/29/17 21:00 08/06/17 09:00 (Tylenol) 650 mg Q4H PRN PO 07/29/17 20:30 08/06/17 11:46 (Zofran Inj) 4 mg Q6H PRN IVP 07/29/17 20:30 08/06/17 11:54 (Restoril) 15 mg HS PRN PO 07/29/17 20:30 (Narcan Inj) 0.4 mg UNSCH PRN IV PUSH 07/29/17 20:30 (Emelia-Colace) 1 tab BID PO 07/29/17 21:00 08/04/17 22:46 (Milk Of Magnesia Liq) 30 ml Q12H PRN PO 07/29/17 20:30 08/02/17 09:33 (Senokot) 17.2 mg Q12H PRN PO 07/29/17 20:30 (Dulcolax Supp) 10 mg DAILY PRN RECTAL 07/29/17 20:30 (Lactulose Liq) 30 ml DAILY PRN PO 07/29/17 20:30 (Ativan) 0.5 mg Q8H PRN PO 07/29/17 20:30 (Catapres) 0.1 mg Q6H PRN PO 07/29/17 20:30 (Dilaudid Pf Inj) 0.5 mg Q4H PRN IV 07/29/17 20:45 08/06/17 13:32 (Protonix Inj) 40 mg Q24H IV PUSH 07/30/17 21:00 08/05/17 22:06 (Percocet 10-325 Mg) 1 tab Q4H PRN PO 07/29/17 20:30 08/04/17 12:58 (D50w (Vial) Inj) 50 ml UNSCH PRN IV PUSH 07/29/17 20:45 (Glucagon Inj) 1 mg UNSCH PRN OTHER 07/29/17 20:45 (NovoLOG SUPPLEMENTAL SCALE) 1 ACHS SLIDING SCALE SQ 07/29/17 21:00 08/06/17 12:00 Sodium Chloride 1,000 ml @ 30 mls/hr Q24H IV 07/30/17 13:15 08/06/17 05:15 (Ecotrin Ec) 81 mg DAILY PO 07/31/17 09:00 08/06/17 09:22 (Morphine Inj) 5 mg Q2H PRN IV PUSH 07/30/17 14:00 07/30/17 22:03 (Levemir Inj) 20 units DAILY SQ 07/31/17 09:00 08/06/17 09:00 (Ativan Inj) 0.5 mg Q6H PRN IV 07/31/17 03:15 08/03/17 02:59 (Phenergan Inj) 25 mg Q6H PRN IV-CENTRAL 07/31/17 03:15 (Heparin Inj) 5,000 units BID SQ 07/31/17 21:00 08/06/17 09:21 Cefazolin Sodium/ Dextrose 50 ml @ 100 mls/hr Q8H IV 08/01/17 12:00 08/06/17 11:45 Levofloxacin/ Dextrose 150 ml @ 100 mls/hr Q24H IV 08/01/17 18:00 2/14/18 17:30 (Lopressor) 100 mg Q12H PO 08/03/17 15:00 08/06/17 04:19 (Imdur) 60 mg DAILY@07 PO 08/04/17 07:00 08/06/17 06:41 (Lasix) 40 mg BID@,18 PO 08/03/17 09:00 08/06/17 09:22 A/P Assessment and Plan Assessment and Plan- 57-year-old male admitted secondary to NSTEMI with left lower extremity osteomyelitis Vomiting- egd- Reflux esophagitis 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 He has been refusing to do this. Vascular surgery consultation done, pt refused amputation as noted again. Chronic anemia Anemia of chronic disease Follow CBC Chronic kidney disease stage III Monitor renal function Atrial fibrillation Follow on telemetry Hypertension Continue baseline treatment Follow blood pressures Adjust treatments as needed DVT prophylaxis Heparin dispo: dc to snf done, however finding placement Arthur Cortez MD Aug 06, 2017 16:29
[2017-08-06] MEDS: LEVOFLOXACIN 750 MG/DEXTROSE 150 ML IV SCH (18:00)
[2017-08-06] MEDS: PANTOPRAZOLE SODIUM 40 MG VIAL IV PUSH SCH (20:20)
[2017-08-06] MEDS: TAMSULOSIN HCL 0.4 MG CAP PO SCH (20:20)
[2017-08-06 23:53] LABS: MITOCHONDRIAL ABS LESS THAN 20.0 U (<=20.0)
[2017-08-07] VITALS (18 sets, daily range): BP systolic 120–163; BP diastolic 83–96; PULSE 76–98; RESP 20; TEMP 96.7–98.3; O2SAT 97–99
[2017-08-07] MEDS: METOPROLOL TARTRATE 100 MG TAB PO SCH ×2 (03:00→15:31)
[2017-08-07] MEDS: ISOSORBIDE MONONITRATE 60 MG CR TAB (IMDUR) PO SCH (06:20)
[2017-08-07] MEDS: ceFAZolin 2 GM PREMIX 50 ML IV SCH ×3 (06:20→19:49)
[2017-08-07] MEDS: INSULIN ASPART SUPPLEMENTAL SCALE SQ SCH ×4 (07:48→20:26)
[2017-08-07 07:49] LABS: HEMATOCRIT 29.6 % (39.0-51.0); HEMOGLOBIN 9.8 GM/DL (13.0-17.0); MEAN CELL VOLUME 74.5 FL (80.0-100.0); MEAN CORPUSCULAR HEMOGLOBIN 24.6 PG (27.0-34.0); MEAN PLATELET VOLUME 7.6 FL (7.0-11.0); PLATELET COUNT 184 TH/MM3 (150-450); RED BLOOD COUNT 3.98 MIL/MM3 (4.50-5.90); RED CELL DISTRIBUTION WIDTH 23.5 % (11.6-17.2); WHITE BLOOD COUNT 5.6 TH/MM3 (4.0-11.0)
[2017-08-07] MEDS: ACETAMINOPHEN 325 MG TAB PO PRN (08:22)
[2017-08-07] MEDS: POTASSIUM CHLORIDE 10 MEQ CONTROLLED RELEASE TAB PO SCH ×2 (08:49→19:49)
[2017-08-07] MEDS: LISINOPRIL 5 MG TAB PO SCH (08:50)
[2017-08-07] MEDS: DOCUSATE SODIUM 50 MG/SENNA 8.6 MG TAB PO SCH ×2 (08:50→19:50)
[2017-08-07] MEDS: ASPIRIN EC 81 MG TABEC PO SCH (08:50)
[2017-08-07] MEDS: FUROSEMIDE 40 MG TAB PO SCH ×2 (08:51→17:37)
[2017-08-07] MEDS: INSULIN DETEMIR 100 UNITS/ML VIAL SQ SCH (08:51)
[2017-08-07] MEDS: HEPARIN SODIUM - SQ 10,000 UNITS/ML VIAL SQ SCH ×2 (08:51→19:49)
[2017-08-07] MEDS: SODIUM CHLORIDE 0.9% FLUSH 10 ML FLUSH IV FLUSH SCH ×2 (08:51→19:45)
--- NOTE | 2017-08-07 10:46 | HHI.FPPN ---
Subjective Remarks c/o nausea c/o leg pain wanting to dc to snf d/w RN d/w CM Objective Vitals Vital Signs Date Time Temp Pulse Resp B/P (MAP) Pulse Ox O2 Delivery O2 Flow Rate FiO2 08/07/17 10:00 86 08/07/17 09:22 18 08/07/17 09:00 88 08/07/17 08:51 99 21 08/07/17 08:45 99 Room Air 08/07/17 08:45 96.7 89 20 158/93 (114) 99 08/07/17 08:00 89 08/07/17 07:00 82 08/07/17 04:00 98.0 80 20 120/92 (101) 99 08/06/17 20:00 98.3 84 20 141/90 (107) 98 08/06/17 18:01 84 08/06/17 17:00 82 08/06/17 16:00 82 08/06/17 15:01 97.2 82 18 127/81 (96) 99 08/06/17 15:00 86 08/06/17 14:00 82 08/06/17 13:00 84 08/06/17 12:00 82 08/06/17 11:45 97.7 80 18 140/91 (107) 98 08/06/17 11:00 77 I/O 08/06/17 08/06/17 08/06/17 08/07/17 08/07/17 08/07/17 07:00 15:00 23:00 07:00 15:00 23:00 Intake Total 480 ml 50 ml 1526 ml Output Total 1075 ml 875 ml Balance -595 ml 50 ml 651 ml Intake Oral 480 ml 1526 ml IV Total 50 ml Output Urine Total 475 ml 875 ml Emesis 600 ml # Voids 2 # Bowel Movements 0 0 Result Diagram: 08/07/17 0615 08/04/17 0600 Objective Remarks GENERAL: SKIN: Warm and dry. large ulcerations LLE HEAD: Atraumatic. Normocephalic. EYES: Pupils equal and round. No scleral icterus. No injection or drainage. ENT: No nasal bleeding or discharge. Mucous membranes pink and moist. ngt c/d/ i NECK: Trachea midline. No JVD. CARDIOVASCULAR: Regular rate and rhythm. RESPIRATORY: No accessory muscle use. Clear to auscultation. Breath sounds equal bilaterally. GASTROINTESTINAL: Abdomen soft, non-tender, nondistended. Hepatic and splenic margins not palpable. MUSCULOSKELETAL: Extremities without clubbing, cyanosis, or edema. No obvious deformities. NEUROLOGICAL: Awake and alert. No obvious cranial nerve deficits. Motor grossly within normal limits. 1 out of 5 muscle strength in the arms and legs. Normal speech. PSYCHIATRIC: Appropriate mood and affect; insight and judgment normal. Medications and IVs Current Medications Medications (Trade) Dose Ordered Sig/Tri Route Start Time Stop Time Status Last Admin (KCl) 10 meq BID PO 07/29/17 21:00 08/07/17 08:49 (Flomax) 0.4 mg HS PO 07/29/17 21:00 08/06/17 20:20 (Prinivil) 2.5 mg DAILY PO 07/30/17 09:00 Future hold 08/07/17 08:50 (Pill Splitter) 1 ea UNSCH PRN OTHER 07/29/17 20:30 (NS Flush) 2 ml UNSCH PRN IV FLUSH 07/29/17 20:30 (NS Flush) 2 ml BID IV FLUSH 07/29/17 21:00 08/07/17 08:51 (Tylenol) 650 mg Q4H PRN PO 07/29/17 20:30 08/07/17 08:22 (Zofran Inj) 4 mg Q6H PRN IVP 07/29/17 20:30 08/07/17 13:19 (Restoril) 15 mg HS PRN PO 07/29/17 20:30 (Narcan Inj) 0.4 mg UNSCH PRN IV PUSH 07/29/17 20:30 (Emelia-Colace) 1 tab BID PO 07/29/17 21:00 08/06/17 20:20 (Milk Of Magnesia Liq) 30 ml Q12H PRN PO 07/29/17 20:30 08/02/17 09:33 (Senokot) 17.2 mg Q12H PRN PO 07/29/17 20:30 (Dulcolax Supp) 10 mg DAILY PRN RECTAL 07/29/17 20:30 (Lactulose Liq) 30 ml DAILY PRN PO 07/29/17 20:30 (Ativan) 0.5 mg Q8H PRN PO 07/29/17 20:30 (Catapres) 0.1 mg Q6H PRN PO 07/29/17 20:30 (Dilaudid Pf Inj) 0.5 mg Q4H PRN IV 07/29/17 20:45 08/07/17 10:56 (Protonix Inj) 40 mg Q24H IV PUSH 07/30/17 21:00 08/06/17 20:20 (Percocet 10-325 Mg) 1 tab Q4H PRN PO 07/29/17 20:30 08/04/17 12:58 (D50w (Vial) Inj) 50 ml UNSCH PRN IV PUSH 07/29/17 20:45 (Glucagon Inj) 1 mg UNSCH PRN OTHER 07/29/17 20:45 (NovoLOG SUPPLEMENTAL SCALE) 1 ACHS SLIDING SCALE SQ 07/29/17 21:00 08/06/17 21:22 Sodium Chloride 1,000 ml @ 30 mls/hr Q24H IV 07/30/17 13:15 08/07/17 13:15 (Ecotrin Ec) 81 mg DAILY PO 07/31/17 09:00 08/07/17 08:50 (Morphine Inj) 5 mg Q2H PRN IV PUSH 07/30/17 14:00 07/30/17 22:03 (Levemir Inj) 20 units DAILY SQ 07/31/17 09:00 08/07/17 08:51 (Ativan Inj) 0.5 mg Q6H PRN IV 07/31/17 03:15 08/03/17 02:59 (Phenergan Inj) 25 mg Q6H PRN IV-CENTRAL 07/31/17 03:15 08/07/17 14:26 (Heparin Inj) 5,000 units BID SQ 07/31/17 21:00 08/07/17 08:51 Cefazolin Sodium/ Dextrose 50 ml @ 100 mls/hr Q8H IV 08/01/17 12:00 08/07/17 12:43 Levofloxacin/ Dextrose 150 ml @ 100 mls/hr Q24H IV 08/01/17 18:00 08/06/17 18:00 (Lopressor) 100 mg Q12H PO 08/03/17 15:00 08/07/17 15:31 (Imdur) 60 mg DAILY@07 PO 08/04/17 07:00 08/07/17 06:20 (Lasix) 40 mg BID@ PO 08/03/17 09:00 08/07/17 08:51 A/P Assessment and Plan Assessment and Plan- 57-year-old male admitted secondary to NSTEMI with left lower extremity osteomyelitis Vomiting- egd- Reflux esophagitis 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 He has been refusing to do this. Vascular surgery consultation done, pt refused amputation as noted again. Chronic anemia Anemia of chronic disease Follow CBC Chronic kidney disease stage III Monitor renal function Atrial fibrillation Follow on telemetry Hypertension Continue baseline treatment Follow blood pressures Adjust treatments as needed DVT prophylaxis Heparin dispo: dc to snf done, however finding placement is an issue...Case management finding placement... Arthur Cortez MD Aug 07, 2017 10:46
[2017-08-07] MEDS: HYDROmorphone HCL PF 2 MG/ML VIAL IV PRN ×2 (10:56→22:34)
[2017-08-07] MEDS: SODIUM CHLOR 0.9% 1000 ML INJ 1,000 ML IV SCH ×2 (13:15→13:19)
[2017-08-07] MEDS: ONDANSETRON HCL 4 MG/2 ML VIAL IVP PRN (13:19)
[2017-08-07] MEDS: PROMETHAZINE INJ 25 MG/ML VIAL IV-CENTRAL PRN ×2 (14:26→20:25)
[2017-08-07] MEDS: LEVOFLOXACIN 750 MG/DEXTROSE 150 ML IV SCH (17:37)
[2017-08-07] MEDS: PANTOPRAZOLE SODIUM 40 MG VIAL IV PUSH SCH (19:47)
[2017-08-07] MEDS: TAMSULOSIN HCL 0.4 MG CAP PO SCH (19:49)
[2017-08-08] VITALS (24 sets, daily range): BP systolic 109–158; BP diastolic 67–99; PULSE 75–112; RESP 18–24; TEMP 97–98.5; O2SAT 95–99
[2017-08-08] MEDS: METOPROLOL TARTRATE 100 MG TAB PO SCH ×2 (03:00→15:32)
[2017-08-08] MEDS: ceFAZolin 2 GM PREMIX 50 ML IV SCH ×3 (03:35→19:45)
[2017-08-08] MEDS: ISOSORBIDE MONONITRATE 60 MG CR TAB (IMDUR) PO SCH (07:00)
[2017-08-08] MEDS: POTASSIUM CHLORIDE 10 MEQ CONTROLLED RELEASE TAB PO SCH ×2 (08:58→19:44)
[2017-08-08] MEDS: FUROSEMIDE 40 MG TAB PO SCH ×2 (08:59→17:21)
[2017-08-08] MEDS: LISINOPRIL 5 MG TAB PO SCH (08:59)
[2017-08-08] MEDS: ASPIRIN EC 81 MG TABEC PO SCH (08:59)
[2017-08-08] MEDS: DOCUSATE SODIUM 50 MG/SENNA 8.6 MG TAB PO SCH ×2 (09:00→19:45)
[2017-08-08] MEDS: SODIUM CHLORIDE 0.9% FLUSH 10 ML FLUSH IV FLUSH SCH ×2 (09:00→19:45)
[2017-08-08] MEDS: INSULIN DETEMIR 100 UNITS/ML VIAL SQ SCH (09:00)
[2017-08-08] MEDS: INSULIN ASPART SUPPLEMENTAL SCALE SQ SCH ×4 (09:00→20:43)
[2017-08-08] MEDS: HEPARIN SODIUM - SQ 10,000 UNITS/ML VIAL SQ SCH ×2 (09:01→19:44)
[2017-08-08] MEDS: SODIUM CHLOR 0.9% 1000 ML INJ 1,000 ML IV SCH (13:06)
[2017-08-08 14:53] LABS: CALCIUM 7.7 MG/DL (8.5-10.1); CREATININE 1.19 MG/DL (0.60-1.30)
--- NOTE | 2017-08-08 16:52 | HHI.PR ---
Subjective Remarks Patient complaint of feeling nauseous after getting the cefazolin, also reported feeling increased swelling in his scrotum He's not very pleasant Denied acute issue besides the nausea, and scrotum swelling Objective Vitals Vital Signs Date Time Temp Pulse Resp B/P (MAP) Pulse Ox O2 Delivery O2 Flow Rate FiO2 08/08/17 15:00 98.0 106 20 141/88 (105) 95 08/08/17 15:00 99 08/08/17 14:00 100 08/08/17 13:00 102 08/08/17 12:00 100 08/08/17 12:00 98.5 97 20 109/75 (86) 99 08/08/17 11:26 101 08/08/17 10:00 94 08/08/17 09:00 98 08/08/17 08:00 97.0 94 20 138/94 (109) 98 08/08/17 08:00 96 08/08/17 07:15 Room Air 08/08/17 07:00 80 08/08/17 06:00 89 08/08/17 05:00 94 08/08/17 04:00 97 08/08/17 04:00 98.0 97 18 138/76 (96) 97 08/08/17 04:00 Room Air 08/08/17 03:00 94 08/08/17 02:00 89 08/08/17 01:00 84 08/08/17 00:00 98.1 75 18 114/67 (83) 97 08/08/17 00:00 Room Air 08/08/17 00:00 75 08/07/17 23:00 76 08/07/17 22:00 80 08/07/17 21:00 90 08/07/17 20:00 86 08/07/17 20:00 98.3 86 20 124/83 (97) 97 08/07/17 20:00 Room Air 08/07/17 17:00 80 I/O 08/07/17 08/07/17 08/07/17 08/08/17 08/08/17 08/08/17 07:00 15:00 23:00 07:00 15:00 23:00 Intake Total 1050 ml 1060 ml 1030 ml Output Total 1150 ml 900 ml Balance 1050 ml -90 ml 130 ml Intake Oral 1060 ml 480 ml IV Total 1050 ml 550 ml Output Urine Total 750 ml 900 ml Emesis 400 ml 0 ml # Bowel Movements 0 Result Diagram: 08/07/17 0615 08/08/17 1350 Objective Remarks GENERAL: This is a well-nourished, well-developed patient, in no apparent distress. SKIN: No rashes, warm and dry HEAD: Atraumatic. Normocephalic. EYES: Pupils equal round and reactive. Extraocular motions intact. No scleral icterus. ENT: Nose without bleeding, or drainage, Airway patent. NECK: Trachea midline. Supple CARDIOVASCULAR: Regular rate and rhythm without murmurs, gallops, or rubs. RESPIRATORY: Fair air entry bilaterally. No wheezes, rales, or rhonchi. GASTROINTESTINAL: Abdomen soft, non-tender, nondistended. Positive bowel sounds MUSCULOSKELETAL: +2 swelling mostly in the feet who are in gauze NEUROLOGICAL: Awake and alert. Moves all extremity. Normal speech.no focal neurological deficit : Mild swelling in the scrotum A/P Problem List: (1) Osteomyelitis of foot ICD Code: M86.9 - Osteomyelitis, unspecified Status: Chronic (2) Aaird-yq-eziujmj kidney injury ICD Code: N17.9 - Acute kidney failure, unspecified; N18.9 - Chronic kidney disease, unspecified Status: Acute (3) DM (diabetes mellitus) ICD Code: E11.9 - Type 2 diabetes mellitus without complications Status: Chronic (4) NSTEMI (non-ST elevation myocardial infarction) ICD Code: I21.4 - Non-ST elevation (NSTEMI) myocardial infarction Status: Acute (5) CAD (coronary artery disease) ICD Code: I25.10 - Atherosclerotic heart disease of [place] coronary artery without angina pectoris Status: Chronic (6) Ischemic cardiomyopathy ICD Code: I25.5 - Ischemic cardiomyopathy Status: Chronic (7) Osteomyelitis of ankle or foot, left, acute ICD Code: M86.172 - Other acute osteomyelitis, left ankle and foot Assessment and Plan 08/08: Patient reported worsening swelling in the scrotum along with nausea when he got the cefazolin, will continue with Zofran, I will check his BNP he is currently on Lasix by mouth we may need to switch to iv and monitor I&O closely , BNP and BMP in a.m. 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 He has been refusing to do this. Vascular surgery consultation done, pt refused amputation as noted again. Chronic anemia Anemia of chronic disease Follow CBC Chronic kidney disease stage III Monitor renal function Atrial fibrillation Follow on telemetry Hypertension Continue baseline treatment Follow blood pressures Adjust treatments as needed DVT prophylaxis Heparin Problem Qualifiers (1) CAD (coronary artery disease): Qualified Codes: I25.110 - Atherosclerotic heart disease of [place] coronary artery with unstable angina pectoris Benoit Durham MD Aug 08, 2017 16:52
[2017-08-08] MEDS: ACETAMINOPHEN 325 MG TAB PO PRN (17:21)
[2017-08-08] MEDS: LEVOFLOXACIN 750 MG/DEXTROSE 150 ML IV SCH (17:21)
[2017-08-08] MEDS: PANTOPRAZOLE SODIUM 40 MG VIAL IV PUSH SCH (19:43)
[2017-08-08] MEDS: TAMSULOSIN HCL 0.4 MG CAP PO SCH (19:44)
[2017-08-08] MEDS: PROMETHAZINE INJ 25 MG/ML VIAL IV-CENTRAL PRN (19:44)
[2017-08-08] MEDS: LORazepam 2 MG/ML VIAL IV PRN (19:46)
[2017-08-08] MEDS: HYDROmorphone HCL PF 2 MG/ML VIAL IV PRN (21:28)
[2017-08-09] VITALS (23 sets, daily range): BP systolic 122–150; BP diastolic 50–81; PULSE 82–105; RESP 18–20; TEMP 97.9–98.9; O2SAT 94–98
[2017-08-09] MEDS: HYDROmorphone HCL PF 2 MG/ML VIAL IV PRN ×3 (01:15→22:24)
[2017-08-09] MEDS: METOPROLOL TARTRATE 100 MG TAB PO SCH ×2 (02:33→14:51)
[2017-08-09] MEDS: PROMETHAZINE INJ 25 MG/ML VIAL IV-CENTRAL PRN ×2 (05:12→19:58)
[2017-08-09] MEDS: ceFAZolin 2 GM PREMIX 50 ML IV SCH ×3 (05:12→19:58)
[2017-08-09] MEDS: LORazepam 2 MG/ML VIAL IV PRN ×2 (05:12→20:00)
[2017-08-09 06:01] LABS: BICARBONATE 26.3 MEQ/L (21.0-32.0); CALCIUM 7.9 MG/DL (8.5-10.1); CREATININE 1.25 MG/DL (0.60-1.30)
[2017-08-09] MEDS: ISOSORBIDE MONONITRATE 60 MG CR TAB (IMDUR) PO SCH (06:31)
[2017-08-09] MEDS: INSULIN ASPART SUPPLEMENTAL SCALE SQ SCH ×4 (07:55→21:00)
[2017-08-09] MEDS: INSULIN DETEMIR 100 UNITS/ML VIAL SQ SCH (08:53)
[2017-08-09] MEDS: DOCUSATE SODIUM 50 MG/SENNA 8.6 MG TAB PO SCH ×2 (09:00→19:59)
[2017-08-09] MEDS: SODIUM CHLORIDE 0.9% FLUSH 10 ML FLUSH IV FLUSH SCH ×2 (09:00→20:00)
[2017-08-09] MEDS: LISINOPRIL 5 MG TAB PO SCH (09:37)
[2017-08-09] MEDS: FUROSEMIDE 40 MG TAB PO SCH (09:37)
[2017-08-09] MEDS: HEPARIN SODIUM - SQ 10,000 UNITS/ML VIAL SQ SCH ×2 (09:37→19:59)
[2017-08-09] MEDS: POTASSIUM CHLORIDE 10 MEQ CONTROLLED RELEASE TAB PO SCH ×2 (09:38→20:00)
[2017-08-09] MEDS: ASPIRIN EC 81 MG TABEC PO SCH (09:38)
[2017-08-09] MEDS: SODIUM CHLOR 0.9% 1000 ML INJ 1,000 ML IV SCH (11:38)
[2017-08-09 11:52] LABS: CERULOPLASMIN 36 mg/dL (18-36)
--- NOTE | 2017-08-09 12:24 | HHI.PR ---
Subjective Remarks The nurse reported to me patient being very inappropriate with a iv access team and the wound care team, he tried to trend them with punching I went and talked to the patient, he was calm at the time, I explained to him that we are here to help him and no need to use this type of verbal or body language, he showed understanding Also he complained of chest pain overnight along with short of breath 9 out of 10 is 0 now no transfer seems to be nontypical for ACS but we'll work that up Objective Vitals Vital Signs Date Time Temp Pulse Resp B/P (MAP) Pulse Ox O2 Delivery O2 Flow Rate FiO2 08/09/17 12:00 94 08/09/17 11:00 95 08/09/17 11:00 97.9 94 20 128/81 (97) 94 08/09/17 10:00 96 08/09/17 09:00 98 08/09/17 08:00 100 08/09/17 07:00 95 08/09/17 07:00 95 Nasal Cannula 2.00 08/09/17 07:00 98.0 95 20 140/67 (91) 95 08/09/17 06:00 87 08/09/17 05:00 85 08/09/17 04:00 Room Air 08/09/17 04:00 98.9 92 18 147/77 (100) 96 08/09/17 04:00 92 08/09/17 03:00 90 08/09/17 02:00 87 08/09/17 01:00 89 08/09/17 00:00 98.5 82 20 122/72 (89) 98 08/09/17 00:00 Room Air 08/09/17 00:00 82 08/08/17 23:00 89 08/08/17 22:00 92 08/08/17 21:36 21 08/08/17 21:00 100 08/08/17 20:00 Room Air 08/08/17 20:00 108 08/08/17 20:00 98.1 108 22 158/75 (102) 97 08/08/17 18:50 104 24 155/99 (117) 99 08/08/17 18:00 112 08/08/17 17:00 96 08/08/17 16:00 102 08/08/17 15:00 98.0 106 20 141/88 (105) 95 08/08/17 15:00 99 08/08/17 14:00 100 08/08/17 13:00 102 I/O 08/08/17 08/08/17 08/08/17 08/09/17 08/09/17 08/09/17 07:00 15:00 23:00 07:00 15:00 23:00 Intake Total 1030 ml 720 ml 1360 ml Output Total 900 ml 1150 ml 950 ml Balance 130 ml -430 ml 410 ml Intake Oral 480 ml 720 ml 960 ml IV Total 550 ml 400 ml Output Urine Total 900 ml 1150 ml 950 ml Emesis 0 ml 0 ml # Bowel Movements 0 1 0 Result Diagram: 08/07/17 0615 08/09/17 0515 Objective Remarks GENERAL: This is a well-nourished, well-developed patient, in no apparent distress. SKIN: No rashes, warm and dry HEAD: Atraumatic. Normocephalic. EYES: Pupils equal round and reactive. Extraocular motions intact. No scleral icterus. ENT: Nose without bleeding, or drainage, Airway patent. NECK: Trachea midline. Supple CARDIOVASCULAR: Regular rate and rhythm without murmurs, gallops, or rubs. RESPIRATORY: Few rhonchi bibasilar GASTROINTESTINAL: Abdomen soft, non-tender, nondistended. Positive bowel sounds MUSCULOSKELETAL: +2 swelling mostly in the feet who are in gauze NEUROLOGICAL: Awake and alert. Moves all extremity. Normal speech.no focal neurological deficit : Mild swelling in the scrotum A/P Problem List: (1) Osteomyelitis of foot ICD Code: M86.9 - Osteomyelitis, unspecified Status: Chronic (2) Emuwe-vl-brujlnv kidney injury ICD Code: N17.9 - Acute kidney failure, unspecified; N18.9 - Chronic kidney disease, unspecified Status: Acute (3) DM (diabetes mellitus) ICD Code: E11.9 - Type 2 diabetes mellitus without complications Status: Chronic (4) NSTEMI (non-ST elevation myocardial infarction) ICD Code: I21.4 - Non-ST elevation (NSTEMI) myocardial infarction Status: Acute (5) CAD (coronary artery disease) ICD Code: I25.10 - Atherosclerotic heart disease of [place] coronary artery without angina pectoris Status: Chronic (6) Ischemic cardiomyopathy ICD Code: I25.5 - Ischemic cardiomyopathy Status: Chronic (7) Osteomyelitis of ankle or foot, left, acute ICD Code: M86.172 - Other acute osteomyelitis, left ankle and foot Assessment and Plan 08/08: Patient reported worsening swelling in the scrotum along with nausea when he got the cefazolin, will continue with Zofran, I will check his BNP he is currently on Lasix by mouth we may need to switch to iv and monitor I&O closely , BNP and BMP in a.m. 08/09: Worsening BNP Increased from 3768 -4533 BNP , switch Lasix to 40 mg iv twice a day, strict I&O, will check another set of troponin and do an EKG regarding the chest pain patient reported overnight, we will review when it's done, Dr. 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 He has been refusing to do this. Vascular surgery consultation done, pt refused amputation as noted again. Chronic anemia Anemia of chronic disease Follow CBC Chronic kidney disease stage III Monitor renal function Atrial fibrillation Follow on telemetry Hypertension Continue baseline treatment Follow blood pressures Adjust treatments as needed DVT prophylaxis Heparin Problem Qualifiers (1) CAD (coronary artery disease): Qualified Codes: I25.110 - Atherosclerotic heart disease of [place] coronary artery with unstable angina pectoris Benoit Durham MD Aug 09, 2017 12:24
[2017-08-09] MEDS: ACETAMINOPHEN 325 MG TAB PO PRN ×2 (12:35→17:24)
[2017-08-09] MEDS: ONDANSETRON HCL 4 MG/2 ML VIAL IVP PRN (14:51)
[2017-08-09] MEDS: LEVOFLOXACIN 750 MG/DEXTROSE 150 ML IV SCH (17:22)
[2017-08-09] MEDS: FUROSEMIDE 40 MG/4 ML VIAL IV PUSH SCH (17:23)
[2017-08-09] MEDS: PANTOPRAZOLE SODIUM 40 MG VIAL IV PUSH SCH (19:59)
[2017-08-09] MEDS: TAMSULOSIN HCL 0.4 MG CAP PO SCH (20:00)
[2017-08-10] VITALS (23 sets, daily range): BP systolic 101–148; BP diastolic 48–86; PULSE 84–108; RESP 18–20; TEMP 98.3–99.7; O2SAT 96–98
[2017-08-10] MEDS: ceFAZolin 2 GM PREMIX 50 ML IV SCH ×3 (03:18→20:00)
[2017-08-10] MEDS: METOPROLOL TARTRATE 100 MG TAB PO SCH ×2 (03:18→15:22)
[2017-08-10] MEDS: HYDROmorphone HCL PF 2 MG/ML VIAL IV PRN ×4 (03:19→23:36)
[2017-08-10] MEDS: ISOSORBIDE MONONITRATE 60 MG CR TAB (IMDUR) PO SCH (06:38)
[2017-08-10 06:53] LABS: HEMATOCRIT 24.6 % (39.0-51.0); HEMOGLOBIN 8.2 GM/DL (13.0-17.0); MEAN CORPUSCULAR HEMOGLOBIN 24.7 PG (27.0-34.0); MEAN CORPUSCULAR HGB CONC 33.4 % (32.0-36.0); MEAN PLATELET VOLUME 7.4 FL (7.0-11.0); PLATELET COUNT 146 TH/MM3 (150-450); RED BLOOD COUNT 3.32 MIL/MM3 (4.50-5.90); WHITE BLOOD COUNT 5.6 TH/MM3 (4.0-11.0)
[2017-08-10 07:19] LABS: BICARBONATE 27.4 MEQ/L (21.0-32.0); CALCIUM 7.6 MG/DL (8.5-10.1); CREATININE 1.4 MG/DL (0.60-1.30); MAGNESIUM 1.7 MG/DL (1.5-2.5); PHOSPHORUS 2.9 MG/DL (2.5-4.9)
[2017-08-10] MEDS: DOCUSATE SODIUM 50 MG/SENNA 8.6 MG TAB PO SCH ×2 (09:00→21:00)
--- NOTE | 2017-08-10 10:18 | HHI.FPPN ---
Subjective Remarks c/o frequentcy events noted d/w RN Objective Vitals Vital Signs Date Time Temp Pulse Resp B/P (MAP) Pulse Ox O2 Delivery O2 Flow Rate FiO2 08/10/17 09:40 96 21 08/10/17 07:22 Room Air 08/10/17 07:22 99.0 98 20 118/73 (88) 98 08/10/17 05:48 84 08/10/17 05:00 89 08/10/17 04:00 Room Air 08/10/17 04:00 91 08/10/17 04:00 98.3 91 18 148/86 (106) 97 08/10/17 03:00 89 08/10/17 02:00 90 08/10/17 01:00 87 08/10/17 00:00 Room Air 08/10/17 00:00 87 08/10/17 00:00 98.9 87 18 106/48 (67) 96 08/09/17 23:00 95 08/09/17 22:00 93 08/09/17 21:00 90 08/09/17 20:00 98.6 92 20 127/50 (75) 96 08/09/17 20:00 92 08/09/17 20:00 Room Air 08/09/17 18:00 89 08/09/17 17:00 97 08/09/17 16:00 98 08/09/17 15:00 98.8 94 20 150/62 (91) 94 08/09/17 15:00 105 08/09/17 14:00 98 08/09/17 13:00 100 08/09/17 12:41 2.00 08/09/17 12:00 94 08/09/17 11:00 95 08/09/17 11:00 97.9 94 20 128/81 (97) 94 I/O 08/09/17 08/09/17 08/09/17 08/10/17 08/10/17 08/10/17 07:00 15:00 23:00 07:00 15:00 23:00 Intake Total 1360 ml 720 ml 960 ml Output Total 950 ml 2150 ml 1400 ml Balance 410 ml -1430 ml -440 ml Intake Oral 960 ml 720 ml 960 ml IV Total 400 ml Output Urine Total 950 ml 2150 ml 1400 ml Emesis 0 ml 0 ml # Bowel Movements 0 0 0 Result Diagram: 08/10/1752908/10/17 0530 Objective Remarks GENERAL: SKIN: Warm and dry. large ulcerations LLE HEAD: Atraumatic. Normocephalic. EYES: Pupils equal and round. No scleral icterus. No injection or drainage. ENT: No nasal bleeding or discharge. Mucous membranes pink and moist. ngt c/d/ i NECK: Trachea midline. No JVD. CARDIOVASCULAR: Regular rate and rhythm. RESPIRATORY: No accessory muscle use. Clear to auscultation. Breath sounds equal bilaterally. GASTROINTESTINAL: Abdomen soft, non-tender, nondistended. Hepatic and splenic margins not palpable. MUSCULOSKELETAL: Extremities without clubbing, cyanosis, or edema. No obvious deformities. NEUROLOGICAL: Awake and alert. No obvious cranial nerve deficits. Motor grossly within normal limits. 1 out of 5 muscle strength in the arms and legs. Normal speech. PSYCHIATRIC: Appropriate mood and affect; insight and judgment normal. Medications and IVs Current Medications Medications (Trade) Dose Ordered Sig/Tri Route Start Time Stop Time Status Last Admin (KCl) 10 meq BID PO 07/29/17 21:00 08/09/17 20:00 (Flomax) 0.4 mg HS PO 07/29/17 21:00 08/09/17 20:00 (Prinivil) 2.5 mg DAILY PO 07/30/17 09:00 Future hold 08/09/17 09:37 (Pill Splitter) 1 ea UNSCH PRN OTHER 07/29/17 20:30 (NS Flush) 2 ml UNSCH PRN IV FLUSH 07/29/17 20:30 (NS Flush) 2 ml BID IV FLUSH 07/29/17 21:00 08/09/17 20:00 (Tylenol) 650 mg Q4H PRN PO 07/29/17 20:30 08/09/17 17:24 (Zofran Inj) 4 mg Q6H PRN IVP 07/29/17 20:30 08/09/17 14:51 (Restoril) 15 mg HS PRN PO 07/29/17 20:30 (Narcan Inj) 0.4 mg UNSCH PRN IV PUSH 07/29/17 20:30 (Emelia-Colace) 1 tab BID PO 07/29/17 21:00 08/09/17 19:59 (Milk Of Magnesia Liq) 30 ml Q12H PRN PO 07/29/17 20:30 08/02/17 09:33 (Senokot) 17.2 mg Q12H PRN PO 07/29/17 20:30 (Dulcolax Supp) 10 mg DAILY PRN RECTAL 07/29/17 20:30 (Lactulose Liq) 30 ml DAILY PRN PO 07/29/17 20:30 (Ativan) 0.5 mg Q8H PRN PO 07/29/17 20:30 08/09/17 09:36 (Catapres) 0.1 mg Q6H PRN PO 07/29/17 20:30 (Dilaudid Pf Inj) 0.5 mg Q4H PRN IV 07/29/17 20:45 08/10/17 03:19 (Protonix Inj) 40 mg Q24H IV PUSH 07/30/17 21:00 08/09/17 19:59 (Percocet 10-325 Mg) 1 tab Q4H PRN PO 07/29/17 20:30 08/04/17 12:58 (D50w (Vial) Inj) 50 ml UNSCH PRN IV PUSH 07/29/17 20:45 (Glucagon Inj) 1 mg UNSCH PRN OTHER 07/29/17 20:45 (NovoLOG SUPPLEMENTAL SCALE) 1 ACHS SLIDING SCALE SQ 07/29/17 21:00 08/09/17 17:00 Sodium Chloride 1,000 ml @ 30 mls/hr Q24H IV 07/30/17 13:15 08/07/17 13:15 (Ecotrin Ec) 81 mg DAILY PO 07/31/17 09:00 08/09/17 09:38 (Morphine Inj) 5 mg Q2H PRN IV PUSH 07/30/17 14:00 07/30/17 22:03 (Levemir Inj) 20 units DAILY SQ 07/31/17 09:00 08/08/17 09:00 (Ativan Inj) 0.5 mg Q6H PRN IV 07/31/17 03:15 08/09/17 20:00 (Phenergan Inj) 25 mg Q6H PRN IV-CENTRAL 07/31/17 03:15 08/09/17 19:58 (Heparin Inj) 5,000 units BID SQ 07/31/17 21:00 08/09/17 19:59 Cefazolin Sodium/ Dextrose 50 ml @ 100 mls/hr Q8H IV 08/01/17 12:00 08/10/17 03:18 Levofloxacin/ Dextrose 150 ml @ 100 mls/hr Q24H IV 08/01/17 18:00 08/09/17 17:22 (Lopressor) 100 mg Q12H PO 08/03/17 15:00 08/10/17 03:18 (Imdur) 60 mg DAILY@07 PO 08/04/17 07:00 08/07/17 06:20 (Lasix) 40 mg BID@,18 PO 08/03/17 09:00 Future Hold 08/09/17 09:37 (Lasix Inj) 40 mg BID@ IV PUSH 08/09/17 18:00 08/09/17 17:23 A/P Assessment and Plan Assessment and Plan- 57-year-old male admitted secondary to NSTEMI with left lower extremity osteomyelitis Vomiting- egd- Reflux esophagitis 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 He has been refusing to do this. Vascular surgery consultation done, pt refused amputation as noted again. DM: UNCONTROLLED, SOME HYPOGLYCEMIA, CONTINUE INSULIN, Chronic anemia Anemia of chronic disease Follow CBC Chronic kidney disease stage III Monitor renal function Atrial fibrillation Follow on telemetry Hypertension Continue baseline treatment Follow blood pressures Adjust treatments as needed DVT prophylaxis Heparin dispo: dc to snf done, however finding placement is an issue...Case management finding placement... Arthur Cortez MD Aug 10, 2017 10:18
[2017-08-10] MEDS: ASPIRIN EC 81 MG TABEC PO SCH (10:30)
[2017-08-10] MEDS: LISINOPRIL 5 MG TAB PO SCH (10:30)
[2017-08-10] MEDS: POTASSIUM CHLORIDE 10 MEQ CONTROLLED RELEASE TAB PO SCH ×2 (10:31→21:21)
[2017-08-10] MEDS: HEPARIN SODIUM - SQ 10,000 UNITS/ML VIAL SQ SCH ×2 (10:34→21:21)
[2017-08-10] MEDS: FUROSEMIDE 40 MG/4 ML VIAL IV PUSH SCH ×2 (10:34→18:00)
[2017-08-10] MEDS: SODIUM CHLORIDE 0.9% FLUSH 10 ML FLUSH IV FLUSH SCH ×2 (10:35→21:23)
[2017-08-10] MEDS: ACETAMINOPHEN 325 MG TAB PO PRN ×2 (10:36→18:46)
[2017-08-10] MEDS: INSULIN ASPART SUPPLEMENTAL SCALE SQ SCH ×4 (10:36→21:21)
[2017-08-10] MEDS: INSULIN DETEMIR 100 UNITS/ML VIAL SQ SCH (10:45)
[2017-08-10] MEDS ORDERED: INSULIN DETEMIR 100 UNITS/ML VIAL SQ ONE (11:15)
[2017-08-10] MEDS: SODIUM CHLOR 0.9% 1000 ML INJ 1,000 ML IV SCH (13:15)
[2017-08-10] MEDS: ONDANSETRON HCL 4 MG/2 ML VIAL IVP PRN (15:22)
[2017-08-10] MEDS: LEVOFLOXACIN 750 MG/DEXTROSE 150 ML IV SCH (17:59)
[2017-08-10] MEDS: TAMSULOSIN HCL 0.4 MG CAP PO SCH (21:00)
[2017-08-10] MEDS: PANTOPRAZOLE SODIUM 40 MG VIAL IV PUSH SCH (21:20)
[2017-08-10] MEDS: guaiFENesin/DEXTROMETHORPHAN 200 MG/20 MG/10 ML CUP PO PRN (21:26)
--- NOTE | 2017-08-10 23:03 | EKG ---
Date Performed: 08/09/2017 Time Performed: 18:47:56 PTAGE: 57 years EKG: Sinus rhythm . Extensive ST-T changes may be due to myocardial ischemia Abnormal ECG PREVIOUS TRACING : 07/29/2017 17.26 DOCTOR: Tio Minaya Interpretating Date/Time 08/10/2017 22:55:16
[2017-08-11] VITALS (14 sets, daily range): BP systolic 100–143; BP diastolic 56–79; PULSE 70–104; RESP 18–20; TEMP 97.5–98.7; O2SAT 95–100
[2017-08-11] MEDS: ceFAZolin 2 GM PREMIX 50 ML IV SCH ×3 (04:00→19:25)
[2017-08-11] MEDS: guaiFENesin/DEXTROMETHORPHAN 200 MG/20 MG/10 ML CUP PO PRN ×4 (04:01→18:59)
[2017-08-11] MEDS: HYDROmorphone HCL PF 2 MG/ML VIAL IV PRN ×5 (04:02→23:16)
[2017-08-11] MEDS: METOPROLOL TARTRATE 100 MG TAB PO SCH ×2 (04:02→15:35)
[2017-08-11] MEDS: ONDANSETRON HCL 4 MG/2 ML VIAL IVP PRN (04:06)
[2017-08-11] MEDS: ISOSORBIDE MONONITRATE 60 MG CR TAB (IMDUR) PO SCH (07:27)
[2017-08-11] MEDS: ASPIRIN EC 81 MG TABEC PO SCH (08:23)
[2017-08-11] MEDS: HEPARIN SODIUM - SQ 10,000 UNITS/ML VIAL SQ SCH ×2 (08:23→20:47)
[2017-08-11] MEDS: POTASSIUM CHLORIDE 10 MEQ CONTROLLED RELEASE TAB PO SCH ×2 (08:24→20:50)
[2017-08-11] MEDS: LISINOPRIL 5 MG TAB PO SCH (08:24)
[2017-08-11] MEDS: DOCUSATE SODIUM 50 MG/SENNA 8.6 MG TAB PO SCH ×2 (08:24→20:50)
[2017-08-11] MEDS: SODIUM CHLORIDE 0.9% FLUSH 10 ML FLUSH IV FLUSH SCH ×2 (08:24→19:47)
[2017-08-11] MEDS: FUROSEMIDE 40 MG/4 ML VIAL IV PUSH SCH ×2 (08:24→17:27)
[2017-08-11] MEDS: INSULIN DETEMIR 100 UNITS/ML VIAL SQ SCH (08:25)
[2017-08-11] MEDS: INSULIN ASPART SUPPLEMENTAL SCALE SQ SCH ×5 (09:16→20:49)
--- NOTE | 2017-08-11 09:46 | HHI.FPPN ---
Subjective Remarks c/o cough c/o weakness incr redness RLE d/w RN d/w pharmacist Objective Vitals Vital Signs Date Time Temp Pulse Resp B/P (MAP) Pulse Ox O2 Delivery O2 Flow Rate FiO2 08/11/17 08:00 97.5 70 20 100/61 (74) 95 08/11/17 04:12 98.7 90 20 120/74 (89) 99 08/11/17 03:49 84 08/11/17 00:17 84 08/11/17 00:00 98.7 80 18 100/56 (71) 97 08/11/17 00:00 Nasal Cannula 3.00 08/10/17 21:49 Nasal Cannula 4.00 08/10/17 20:26 91 08/10/17 20:08 98.9 91 20 101/55 (70) 97 08/10/17 16:17 103 08/10/17 16:00 99.7 108 18 117/63 (81) 96 08/10/17 14:50 99.4 101 19 115/57 (76) 97 08/10/17 13:00 108 08/10/17 12:00 104 08/10/17 11:45 19 08/10/17 11:45 98.8 98 19 107/63 (78) 96 08/10/17 11:00 97 08/10/17 10:00 108 I/O 08/10/17 08/10/17 08/10/17 08/11/17 08/11/17 08/11/17 07:00 15:00 23:00 07:00 15:00 23:00 Intake Total 960 ml 150 ml 916 ml Output Total 1400 ml 400 ml 250 ml Balance -440 ml -250 ml 916 ml -250 ml Intake Oral 960 ml 916 ml IV Total 150 ml Output Urine Total 1400 ml 400 ml 250 ml Emesis 0 ml # Voids 3 # Bowel Movements 0 0 Result Diagram: 08/10/1752908/10/17529 Objective Remarks GENERAL: SKIN: Warm and dry. large ulcerations LLE HEAD: Atraumatic. Normocephalic. EYES: Pupils equal and round. No scleral icterus. No injection or drainage. ENT: No nasal bleeding or discharge. Mucous membranes pink and moist. ngt c/d/ i NECK: Trachea midline. No JVD. CARDIOVASCULAR: Regular rate and rhythm. RESPIRATORY: r ronhci and crackles, harsh cough GASTROINTESTINAL: Abdomen soft, non-tender, nondistended. Hepatic and splenic margins not palpable. MUSCULOSKELETAL: Extremities without clubbing, cyanosis, or edema. No obvious deformities. NEUROLOGICAL: Awake and alert. No obvious cranial nerve deficits. Motor grossly within normal limits. 1 out of 5 muscle strength in the arms and legs. Normal speech. PSYCHIATRIC: Appropriate mood and affect; insight and judgment normal. 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 He has been refusing to do this. Vascular surgery consultation done, pt refused amputation as noted again. DM: UNCONTROLLED, SOME HYPOGLYCEMIA, CONTINUE INSULIN, Bronchitis: duonebs qid Chronic anemia Anemia of chronic disease Follow CBC Chronic kidney disease stage III Monitor renal function Atrial fibrillation Follow on telemetry Hypertension Continue baseline treatment Follow blood pressures Adjust treatments as needed DVT prophylaxis Heparin dispo: dc to snf done, however finding placement is an issue...Case management finding placement... Arthur Cortez MD Aug 11, 2017 09:46
[2017-08-11] MEDS: SODIUM CHLOR 0.9% 1000 ML INJ 1,000 ML IV SCH (12:49)
[2017-08-11] MEDS: ACETAMINOPHEN 325 MG TAB PO PRN (15:02)
[2017-08-11] MEDS: RESP: ALBUTEROL 2.5 MG/IPRATROPIUM 0.5 MG NEB (SCH) NEB ×2 (15:29→19:30)
[2017-08-11] MEDS: LEVOFLOXACIN 750 MG/DEXTROSE 150 ML IV SCH (17:27)
[2017-08-11] MEDS: PANTOPRAZOLE SODIUM 40 MG VIAL IV PUSH SCH (20:46)
[2017-08-11] MEDS: TAMSULOSIN HCL 0.4 MG CAP PO SCH (20:51)
[2017-08-12] VITALS (10 sets, daily range): BP systolic 106–138; BP diastolic 67–82; PULSE 92–105; RESP 17–20; TEMP 97.2–100.7; O2SAT 96–100
[2017-08-12] MEDS: guaiFENesin/DEXTROMETHORPHAN 200 MG/20 MG/10 ML CUP PO PRN ×3 (01:12→19:57)
[2017-08-12] MEDS: PROMETHAZINE INJ 25 MG/ML VIAL IV-CENTRAL PRN ×2 (03:15→15:06)
[2017-08-12] MEDS: ceFAZolin 2 GM PREMIX 50 ML IV SCH ×3 (03:18→20:00)
[2017-08-12] MEDS: METOPROLOL TARTRATE 100 MG TAB PO SCH ×2 (05:50→15:11)
[2017-08-12] MEDS: ISOSORBIDE MONONITRATE 60 MG CR TAB (IMDUR) PO SCH (05:50)
[2017-08-12] MEDS: ACETAMINOPHEN 325 MG TAB PO PRN ×3 (05:50→19:59)
[2017-08-12] MEDS: ONDANSETRON HCL 4 MG/2 ML VIAL IVP PRN ×3 (06:12→18:01)
[2017-08-12] MEDS: SODIUM CHLORIDE 0.9% FLUSH 10 ML FLUSH IV FLUSH SCH ×2 (07:29→19:58)
[2017-08-12] MEDS: HEPARIN SODIUM - SQ 10,000 UNITS/ML VIAL SQ SCH ×2 (08:07→19:59)
[2017-08-12] MEDS: LISINOPRIL 5 MG TAB PO SCH (08:08)
[2017-08-12] MEDS: INSULIN DETEMIR 100 UNITS/ML VIAL SQ SCH (08:08)
[2017-08-12] MEDS: ASPIRIN EC 81 MG TABEC PO SCH (08:08)
[2017-08-12] MEDS: FUROSEMIDE 40 MG/4 ML VIAL IV PUSH SCH (08:08)
[2017-08-12] MEDS: DOCUSATE SODIUM 50 MG/SENNA 8.6 MG TAB PO SCH ×2 (08:08→19:57)
[2017-08-12] MEDS: POTASSIUM CHLORIDE 10 MEQ CONTROLLED RELEASE TAB PO SCH (08:08)
[2017-08-12] MEDS: HYDROmorphone HCL PF 2 MG/ML VIAL IV PRN ×4 (08:18→22:43)
[2017-08-12] MEDS: INSULIN ASPART SUPPLEMENTAL SCALE SQ SCH ×4 (08:19→19:55)
[2017-08-12] MEDS: RESP: ALBUTEROL 2.5 MG/IPRATROPIUM 0.5 MG NEB (SCH) NEB ×4 (08:39→20:59)
--- NOTE | 2017-08-12 10:12 | HHI.FPPN ---
Subjective Remarks c/o n/v c/o leg pain d/w RN Objective Vitals Vital Signs Date Time Temp Pulse Resp B/P (MAP) Pulse Ox O2 Delivery O2 Flow Rate FiO2 08/12/17 08:41 98 Nasal Cannula 2.00 08/12/17 04:00 100.7 99 17 106/67 (80) 96 08/12/17 03:54 102 08/12/17 00:00 98.9 99 18 124/75 (91) 98 08/11/17 23:44 92 08/11/17 22:16 Nasal Cannula 2.00 08/11/17 20:00 97.9 104 18 143/79 (100) 100 08/11/17 20:00 98.1 108/58 (75) 08/11/17 19:48 96 08/11/17 19:31 98 Nasal Cannula 2.00 08/11/17 16:18 86 08/11/17 16:00 98.1 88 20 108/58 (75) 97 08/11/17 12:20 99 Nasal Cannula 2.00 08/11/17 12:00 98.0 76 20 102/63 (76) 100 08/11/17 12:00 84 I/O 08/11/17 08/11/17 08/11/17 08/12/17 08/12/17 08/12/17 07:00 15:00 23:00 07:00 15:00 23:00 Intake Total 916 ml 720 ml Output Total 1250 ml 1100 ml Balance 916 ml -530 ml -1100 ml Intake Oral 916 ml 720 ml Output Urine Total 1250 ml 1100 ml # Voids 3 # Bowel Movements 0 Result Diagram: 08/10/17 0530 08/10/17 0530 Objective Remarks GENERAL: SKIN: Warm and dry. large ulcerations LLE HEAD: Atraumatic. Normocephalic. EYES: Pupils equal and round. No scleral icterus. No injection or drainage. ENT: No nasal bleeding or discharge. Mucous membranes pink and moist. ngt c/d/ i NECK: Trachea midline. No JVD. CARDIOVASCULAR: Regular rate and rhythm. RESPIRATORY: r ronhci and crackles, harsh cough GASTROINTESTINAL: Abdomen soft, non-tender, nondistended. Hepatic and splenic margins not palpable. MUSCULOSKELETAL: Extremities without clubbing, cyanosis, or edema. No obvious deformities. NEUROLOGICAL: Awake and alert. No obvious cranial nerve deficits. Motor grossly within normal limits. 1 out of 5 muscle strength in the arms and legs. Normal speech. PSYCHIATRIC: Appropriate mood and affect; insight and judgment normal. Medications and IVs Current Medications Medications (Trade) Dose Ordered Sig/Tri Route Start Time Stop Time Status Last Admin (KCl) 10 meq BID PO 07/29/17 21:00 08/12/17 08:08 (Flomax) 0.4 mg HS PO 07/29/17 21:00 08/09/17 20:00 (Prinivil) 2.5 mg DAILY PO 07/30/17 09:00 Future hold 08/12/17 08:08 (Pill Splitter) 1 ea UNSCH PRN OTHER 07/29/17 20:30 (NS Flush) 2 ml UNSCH PRN IV FLUSH 07/29/17 20:30 (NS Flush) 2 ml BID IV FLUSH 07/29/17 21:00 08/12/17 07:29 (Tylenol) 650 mg Q4H PRN PO 07/29/17 20:30 08/12/17 05:50 (Zofran Inj) 4 mg Q6H PRN IVP 07/29/17 20:30 08/12/17 06:12 (Restoril) 15 mg HS PRN PO 07/29/17 20:30 (Narcan Inj) 0.4 mg UNSCH PRN IV PUSH 07/29/17 20:30 (Emelia-Colace) 1 tab BID PO 07/29/17 21:00 08/12/17 08:08 (Milk Of Magnesia Liq) 30 ml Q12H PRN PO 07/29/17 20:30 08/02/17 09:33 (Senokot) 17.2 mg Q12H PRN PO 07/29/17 20:30 (Dulcolax Supp) 10 mg DAILY PRN RECTAL 07/29/17 20:30 (Lactulose Liq) 30 ml DAILY PRN PO 07/29/17 20:30 (Ativan) 0.5 mg Q8H PRN PO 07/29/17 20:30 08/09/17 09:36 (Catapres) 0.1 mg Q6H PRN PO 07/29/17 20:30 (Dilaudid Pf Inj) 0.5 mg Q4H PRN IV 07/29/17 20:45 08/12/17 08:18 (Protonix Inj) 40 mg Q24H IV PUSH 07/30/17 21:00 08/11/17 20:46 (Percocet 10-325 Mg) 1 tab Q4H PRN PO 07/29/17 20:30 08/04/17 12:58 (D50w (Vial) Inj) 50 ml UNSCH PRN IV PUSH 07/29/17 20:45 (Glucagon Inj) 1 mg UNSCH PRN OTHER 07/29/17 20:45 (NovoLOG SUPPLEMENTAL SCALE) 1 ACHS SLIDING SCALE SQ 07/29/17 21:00 08/12/17 08:19 Sodium Chloride 1,000 ml @ 30 mls/hr Q24H IV 07/30/17 13:15 08/11/17 12:49 (Ecotrin Ec) 81 mg DAILY PO 07/31/17 09:00 08/12/17 08:08 (Morphine Inj) 5 mg Q2H PRN IV PUSH 07/30/17 14:00 07/30/17 22:03 (Ativan Inj) 0.5 mg Q6H PRN IV 07/31/17 03:15 08/09/17 20:00 (Phenergan Inj) 25 mg Q6H PRN IV-CENTRAL 07/31/17 03:15 08/12/17 03:15 (Heparin Inj) 5,000 units BID SQ 07/31/17 21:00 08/12/17 08:07 Cefazolin Sodium/ Dextrose 50 ml @ 100 mls/hr Q8H IV 08/01/17 12:00 08/10/17 03:18 Levofloxacin/ Dextrose 150 ml @ 100 mls/hr Q24H IV 08/01/17 18:00 08/11/17 17:27 (Lopressor) 100 mg Q12H PO 08/03/17 15:00 08/12/17 05:50 (Imdur) 60 mg DAILY@07 PO 08/04/17 07:00 08/12/17 05:50 (Lasix) 40 mg BID@,18 PO 08/03/17 09:00 Future Hold 08/09/17 09:37 (Lasix Inj) 40 mg BID@ IV PUSH 08/09/17 18:00 08/12/17 08:08 (Levemir Inj) 15 units DAILY SQ 08/11/17 09:00 08/12/17 08:08 (Robitussin Dm 200-20 Mg/10 ml Liq) 10 ml Q6H PRN PO 08/10/17 20:45 08/12/17 08:24 (Duoneb Neb) 1 ampule QID NEB NEB 08/11/17 12:00 08/12/17 08:39 A/P Assessment and Plan Assessment and Plan- 57-year-old male admitted secondary to NSTEMI with left lower extremity osteomyelitis Vomiting- egd- Reflux esophagitis 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 He has been refusing to do this. Vascular surgery consultation done, pt refused amputation as noted again. DM: UNCONTROLLED, SOME HYPOGLYCEMIA, CONTINUE INSULIN, Bronchitis: duonebs qid Chronic anemia Anemia of chronic disease Follow CBC Chronic kidney disease stage III Monitor renal function Atrial fibrillation Follow on telemetry Hypertension Continue baseline treatment Follow blood pressures Adjust treatments as needed DVT prophylaxis Heparin dispo: dc to snf done, however finding placement is an issue...Case management finding placement... Arthur Cortez MD Aug 12, 2017 10:12
[2017-08-12] MEDS: SODIUM CHLOR 0.9% 1000 ML INJ 1,000 ML IV SCH (12:45)
[2017-08-12] MEDS ORDERED: PROCHLORPERAZINE INJ 10 MG/2 ML VIAL IM PRN (14:30)
[2017-08-12] MEDS: LEVOFLOXACIN 750 MG/DEXTROSE 150 ML IV SCH (18:00)
[2017-08-12] MEDS: PANTOPRAZOLE SODIUM 40 MG VIAL IV PUSH SCH (19:58)
[2017-08-12] MEDS: TAMSULOSIN HCL 0.4 MG CAP PO SCH (19:58)
[2017-08-13] VITALS (7 sets, daily range): BP systolic 100–124; BP diastolic 56–73; PULSE 75–101; RESP 18–22; TEMP 98–100.7; O2SAT 94–100
[2017-08-13] MEDS: guaiFENesin/DEXTROMETHORPHAN 200 MG/20 MG/10 ML CUP PO PRN (02:27)
[2017-08-13] MEDS: METOPROLOL TARTRATE 100 MG TAB PO SCH ×2 (02:27→15:07)
[2017-08-13] MEDS: ONDANSETRON HCL 4 MG/2 ML VIAL IVP PRN ×2 (02:28→21:30)
[2017-08-13] MEDS: HYDROmorphone HCL PF 2 MG/ML VIAL IV PRN ×5 (02:28→21:19)
[2017-08-13] MEDS: ceFAZolin 2 GM PREMIX 50 ML IV SCH ×3 (02:49→20:00)
[2017-08-13] MEDS: ISOSORBIDE MONONITRATE 60 MG CR TAB (IMDUR) PO SCH (05:35)
[2017-08-13 06:51] LABS: HEMATOCRIT 24.5 % (39.0-51.0); HEMOGLOBIN 8.2 GM/DL (13.0-17.0); MEAN CORPUSCULAR HEMOGLOBIN 24.6 PG (27.0-34.0); MEAN CORPUSCULAR HGB CONC 33.3 % (32.0-36.0); MEAN PLATELET VOLUME 7.3 FL (7.0-11.0); PLATELET COUNT 146 TH/MM3 (150-450); RED BLOOD COUNT 3.32 MIL/MM3 (4.50-5.90); RED CELL DISTRIBUTION WIDTH 23.1 % (11.6-17.2)
[2017-08-13] MEDS: RESP: ALBUTEROL 2.5 MG/IPRATROPIUM 0.5 MG NEB (SCH) NEB ×4 (08:00→21:01)
[2017-08-13] MEDS: DOCUSATE SODIUM 50 MG/SENNA 8.6 MG TAB PO SCH ×2 (09:26→21:24)
[2017-08-13] MEDS: INSULIN DETEMIR 100 UNITS/ML VIAL SQ SCH (09:26)
[2017-08-13] MEDS: LISINOPRIL 5 MG TAB PO SCH (09:26)
[2017-08-13] MEDS: ASPIRIN EC 81 MG TABEC PO SCH (09:26)
[2017-08-13] MEDS: HEPARIN SODIUM - SQ 10,000 UNITS/ML VIAL SQ SCH ×2 (09:27→21:23)
[2017-08-13] MEDS: INSULIN ASPART SUPPLEMENTAL SCALE SQ SCH ×4 (09:36→21:26)
--- NOTE | 2017-08-13 14:31 | HHI.FPPN ---
Subjective Remarks intract vomiting c/o leg pain c/o weakness d/w RN Objective Vitals Vital Signs Date Time Temp Pulse Resp B/P (MAP) Pulse Ox O2 Delivery O2 Flow Rate FiO2 08/13/17 12:02 98.4 95 22 124/70 (88) 99 08/13/17 11:48 18 08/13/17 09:00 4.00 08/13/17 08:02 98.4 89 22 114/73 (87) 100 08/13/17 04:00 84 08/13/17 04:00 98.2 84 18 116/69 (85) 100 08/13/17 04:00 Nasal Cannula 4.00 08/13/17 00:00 Nasal Cannula 4.00 08/13/17 00:00 87 08/13/17 00:00 98.0 75 20 100/56 (71) 99 08/12/17 21:00 Nasal Cannula 2.00 08/12/17 20:00 Nasal Cannula 4.00 08/12/17 20:00 97 08/12/17 19:42 98.7 94 18 111/67 (82) 08/12/17 16:08 98.6 94 20 132/78 (96) 100 08/12/17 15:11 97.2 99 17 136/72 (93) I/O 08/12/17 08/12/17 08/12/17 08/13/17 08/13/17 08/13/17 07:00 15:00 23:00 07:00 15:00 23:00 Intake Total 715 ml 450 ml Output Total 580 ml Balance 135 ml 450 ml Intake Oral 480 ml 450 ml IV Total 235 ml Output Urine Total 580 ml # Voids 1 # Bowel Movements 2 1 Result Diagram: 08/13/17 0615 08/10/17 0530 Objective Remarks GENERAL: SKIN: Warm and dry. large ulcerations LLE HEAD: Atraumatic. Normocephalic. EYES: Pupils equal and round. No scleral icterus. No injection or drainage. ENT: No nasal bleeding or discharge. Mucous membranes pink and moist. ngt c/d/ i NECK: Trachea midline. No JVD. CARDIOVASCULAR: Regular rate and rhythm. RESPIRATORY: r ronhci and crackles, harsh cough GASTROINTESTINAL: Abdomen soft, non-tender, nondistended. Hepatic and splenic margins not palpable. MUSCULOSKELETAL: Extremities without clubbing, cyanosis, or edema. No obvious deformities. NEUROLOGICAL: Awake and alert. No obvious cranial nerve deficits. Motor grossly within normal limits. 1 out of 5 muscle strength in the arms and legs. Normal speech. PSYCHIATRIC: Appropriate mood and affect; insight and judgment normal. Medications and IVs Current Medications Medications (Trade) Dose Ordered Sig/Tri Route Start Time Stop Time Status Last Admin (Flomax) 0.4 mg HS PO 07/29/17 21:00 08/12/17 19:58 (Prinivil) 2.5 mg DAILY PO 07/30/17 09:00 Future hold 08/13/17 09:26 (Pill Splitter) 1 ea UNSCH PRN OTHER 07/29/17 20:30 (NS Flush) 2 ml UNSCH PRN IV FLUSH 07/29/17 20:30 (NS Flush) 2 ml BID IV FLUSH 07/29/17 21:00 08/12/17 19:58 (Tylenol) 650 mg Q4H PRN PO 07/29/17 20:30 08/12/17 19:59 (Zofran Inj) 4 mg Q6H PRN IVP 07/29/17 20:30 08/13/17 02:28 (Restoril) 15 mg HS PRN PO 07/29/17 20:30 (Narcan Inj) 0.4 mg UNSCH PRN IV PUSH 07/29/17 20:30 (Emelia-Colace) 1 tab BID PO 07/29/17 21:00 08/13/17 09:26 (Milk Of Magnesia Liq) 30 ml Q12H PRN PO 07/29/17 20:30 08/02/17 09:33 (Senokot) 17.2 mg Q12H PRN PO 07/29/17 20:30 (Dulcolax Supp) 10 mg DAILY PRN RECTAL 07/29/17 20:30 (Lactulose Liq) 30 ml DAILY PRN PO 07/29/17 20:30 (Ativan) 0.5 mg Q8H PRN PO 07/29/17 20:30 08/09/17 09:36 (Catapres) 0.1 mg Q6H PRN PO 07/29/17 20:30 (Dilaudid Pf Inj) 0.5 mg Q4H PRN IV 07/29/17 20:45 08/13/17 10:08 (Protonix Inj) 40 mg Q24H IV PUSH 07/30/17 21:00 08/12/17 19:58 (Percocet 10-325 Mg) 1 tab Q4H PRN PO 07/29/17 20:30 08/04/17 12:58 (D50w (Vial) Inj) 50 ml UNSCH PRN IV PUSH 07/29/17 20:45 (Glucagon Inj) 1 mg UNSCH PRN OTHER 07/29/17 20:45 (NovoLOG SUPPLEMENTAL SCALE) 1 ACHS SLIDING SCALE SQ 07/29/17 21:00 08/13/17 13:36 Sodium Chloride 1,000 ml @ 50 mls/hr Q20H IV 07/30/17 13:15 08/12/17 12:45 (Ecotrin Ec) 81 mg DAILY PO 07/31/17 09:00 08/13/17 09:26 (Morphine Inj) 5 mg Q2H PRN IV PUSH 07/30/17 14:00 07/30/17 22:03 (Ativan Inj) 0.5 mg Q6H PRN IV 07/31/17 03:15 08/09/17 20:00 (Phenergan Inj) 25 mg Q6H PRN IV-CENTRAL 07/31/17 03:15 08/12/17 15:06 (Heparin Inj) 5,000 units BID SQ 07/31/17 21:00 08/13/17 09:27 Cefazolin Sodium/ Dextrose 50 ml @ 100 mls/hr Q8H IV 08/01/17 12:00 08/10/17 03:18 Levofloxacin/ Dextrose 150 ml @ 100 mls/hr Q24H IV 08/01/17 18:00 08/12/17 18:00 (Lopressor) 100 mg Q12H PO 08/03/17 15:00 08/13/17 02:27 (Imdur) 60 mg DAILY@07 PO 08/04/17 07:00 08/12/17 05:50 (Levemir Inj) 15 units DAILY SQ 08/11/17 09:00 08/13/17 09:26 (Robitussin Dm 200-20 Mg/10 ml Liq) 10 ml Q6H PRN PO 08/10/17 20:45 08/13/17 02:27 (Duoneb Neb) 1 ampule QID NEB NEB 08/11/17 12:00 08/12/17 12:13 (Compazine Inj) 10 mg Q4H PRN IM 08/12/17 14:30 (Phenergan Inj) 12.5 mg Q6H PRN IM 08/12/17 16:30 A/P Assessment and Plan Assessment and Plan- 57-year-old male admitted secondary to NSTEMI with left lower extremity osteomyelitis Vomiting- egd- Reflux esophagitis 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 He has been refusing to do this. Vascular surgery consultation done, pt refused amputation as noted again. DM: UNCONTROLLED, SOME HYPOGLYCEMIA, CONTINUE INSULIN, Bronchitis: duonebs qid Chronic anemia Anemia of chronic disease Follow CBC Chronic kidney disease stage III Monitor renal function Atrial fibrillation Follow on telemetry Hypertension Continue baseline treatment Follow blood pressures Adjust treatments as needed DVT prophylaxis Heparin dispo: dc to snf done, however finding placement is an issue...Case management finding placement... Arthur Cortez MD Aug 13, 2017 14:31
[2017-08-13] MEDS: SODIUM CHLORIDE 0.9% FLUSH 10 ML FLUSH IV FLUSH SCH ×2 (16:12→21:00)
[2017-08-13] MEDS: ACETAMINOPHEN 325 MG TAB PO PRN ×2 (17:56→22:21)
[2017-08-13] MEDS: LEVOFLOXACIN 750 MG/DEXTROSE 150 ML IV SCH (17:57)
[2017-08-13] MEDS: PANTOPRAZOLE SODIUM 40 MG VIAL IV PUSH SCH (21:22)
[2017-08-13] MEDS: TAMSULOSIN HCL 0.4 MG CAP PO SCH (21:24)
[2017-08-14] VITALS (11 sets, daily range): BP systolic 93–163; BP diastolic 57–99; PULSE 77–119; RESP 17–20; TEMP 97.1–100.9; O2SAT 93–100
[2017-08-14] MEDS: oxyCODONE/ACETAMINOPHEN 10 MG/325 MG TAB PO PRN ×3 (00:32→20:13)
[2017-08-14] MEDS: METOPROLOL TARTRATE 100 MG TAB PO SCH ×2 (03:31→14:05)
[2017-08-14] MEDS: ceFAZolin 2 GM PREMIX 50 ML IV SCH ×2 (03:33→11:06)
[2017-08-14] MEDS: HYDROmorphone HCL PF 2 MG/ML VIAL IV PRN ×5 (04:51→22:23)
[2017-08-14] MEDS: ISOSORBIDE MONONITRATE 60 MG CR TAB (IMDUR) PO SCH (06:16)
[2017-08-14] MEDS: SODIUM CHLOR 0.9% 1000 ML INJ 1,000 ML IV SCH ×3 (06:27→23:08)
[2017-08-14] MEDS: RESP: ALBUTEROL 2.5 MG/IPRATROPIUM 0.5 MG NEB (SCH) NEB ×4 (08:00→19:50)
[2017-08-14] MEDS: SODIUM CHLORIDE 0.9% FLUSH 10 ML FLUSH IV FLUSH SCH ×2 (09:00→19:41)
[2017-08-14] MEDS: INSULIN DETEMIR 100 UNITS/ML VIAL SQ SCH (09:00)
[2017-08-14] MEDS: DOCUSATE SODIUM 50 MG/SENNA 8.6 MG TAB PO SCH ×2 (09:30→20:13)
[2017-08-14] MEDS: ASPIRIN EC 81 MG TABEC PO SCH (09:30)
[2017-08-14] MEDS: ACETAMINOPHEN 325 MG TAB PO PRN ×2 (09:30→16:37)
[2017-08-14] MEDS: LISINOPRIL 5 MG TAB PO SCH (09:31)
[2017-08-14] MEDS: HEPARIN SODIUM - SQ 10,000 UNITS/ML VIAL SQ SCH ×2 (09:34→20:13)
[2017-08-14] MEDS: INSULIN ASPART SUPPLEMENTAL SCALE SQ SCH ×4 (09:53→20:14)
[2017-08-14] MEDS: guaiFENesin/DEXTROMETHORPHAN 200 MG/20 MG/10 ML CUP PO PRN (10:45)
--- NOTE | 2017-08-14 10:48 | HHI.FPPN ---
Objective Vitals Vital Signs Date Time Temp Pulse Resp B/P (MAP) Pulse Ox O2 Delivery O2 Flow Rate FiO2 08/14/17 08:45 97.9 87 20 108/57 (74) 100 08/14/17 07:47 77 08/14/17 07:47 Room Air 08/14/17 06:15 17 08/14/17 04:35 92 08/14/17 04:00 99.4 87 17 107/62 (77) 93 08/14/17 04:00 Room Air 08/14/17 01:23 17 08/14/17 01:00 100.7 08/14/17 00:05 92 08/14/17 00:00 Room Air 08/14/17 00:00 100.9 92 18 93/66 (75) 95 08/13/17 21:25 Room Air 08/13/17 21:01 Nasal Cannula 2.00 08/13/17 20:06 87 08/13/17 20:00 100.7 88 19 105/66 (79) 98 08/13/17 16:02 100.7 101 22 112/57 (75) 94 08/13/17 12:02 98.4 95 22 124/70 (88) 99 I/O 08/13/17 08/13/17 08/13/17 08/14/17 08/14/17 08/14/17 07:00 15:00 23:00 07:00 15:00 23:00 Intake Total 450 ml 630 ml 240 ml Output Total 1800 ml Balance 450 ml -1170 ml 240 ml Intake Oral 450 ml 480 ml 240 ml IV Total 150 ml Output Urine Total 1800 ml # Voids 1 2 # Bowel Movements 1 1 1 Result Diagram: 08/13/17 0615 08/10/17 0530 Objective Remarks GENERAL: SKIN: Warm and dry. large ulcerations LLE HEAD: Atraumatic. Normocephalic. EYES: Pupils equal and round. No scleral icterus. No injection or drainage. ENT: No nasal bleeding or discharge. Mucous membranes pink and moist. ngt c/d/ i NECK: Trachea midline. No JVD. CARDIOVASCULAR: Regular rate and rhythm. RESPIRATORY: r ronhci and crackles, harsh cough GASTROINTESTINAL: Abdomen soft, non-tender, nondistended. Hepatic and splenic margins not palpable. MUSCULOSKELETAL: Extremities without clubbing, cyanosis, or edema. No obvious deformities. NEUROLOGICAL: Awake and alert. No obvious cranial nerve deficits. Motor grossly within normal limits. 1 out of 5 muscle strength in the arms and legs. Normal speech. PSYCHIATRIC: Appropriate mood and affect; insight and judgment normal. 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 He has been refusing to do this. Vascular surgery consultation done, pt refused amputation as noted again. DM: UNCONTROLLED, SOME HYPOGLYCEMIA, CONTINUE INSULIN, Bronchitis: duonebs qid Chronic anemia Anemia of chronic disease Follow CBC Chronic kidney disease stage III Monitor renal function Atrial fibrillation Follow on telemetry Hypertension Continue baseline treatment Follow blood pressures Adjust treatments as needed DVT prophylaxis Heparin dispo: dc to snf done, however finding placement is an issue...Case management finding placement... Arthur Cortez MD Aug 14, 2017 10:48
[2017-08-14] MEDS: ONDANSETRON HCL 4 MG/2 ML VIAL IVP PRN ×2 (12:59→23:08)
--- NOTE | 2017-08-14 15:26 | HHI.FPPN ---
Subjective Remarks c/o n/v stable on dilaudid d/w RN Objective Vitals Vital Signs Date Time Temp Pulse Resp B/P (MAP) Pulse Ox O2 Delivery O2 Flow Rate FiO2 08/14/17 12:16 90 08/14/17 12:00 97.1 105 18 133/99 (110) 99 08/14/17 08:45 97.9 87 20 108/57 (74) 100 08/14/17 07:47 77 08/14/17 07:47 Room Air 08/14/17 06:15 17 08/14/17 04:35 92 08/14/17 04:00 99.4 87 17 107/62 (77) 93 08/14/17 04:00 Room Air 08/14/17 01:23 17 08/14/17 01:00 100.7 08/14/17 00:05 92 08/14/17 00:00 Room Air 08/14/17 00:00 100.9 92 18 93/66 (75) 95 08/13/17 21:25 Room Air 08/13/17 21:01 Nasal Cannula 2.00 08/13/17 20:06 87 08/13/17 20:00 100.7 88 19 105/66 (79) 98 08/13/17 16:02 100.7 101 22 112/57 (75) 94 I/O 08/13/17 08/13/17 08/13/17 08/14/17 08/14/17 08/14/17 07:00 15:00 23:00 07:00 15:00 23:00 Intake Total 450 ml 630 ml 240 ml Output Total 1800 ml Balance 450 ml -1170 ml 240 ml Intake Oral 450 ml 480 ml 240 ml IV Total 150 ml Output Urine Total 1800 ml # Voids 1 2 # Bowel Movements 1 1 1 Result Diagram: 08/13/17 0615 08/10/17 0530 Objective Remarks GENERAL: SKIN: Warm and dry. large ulcerations LLE HEAD: Atraumatic. Normocephalic. EYES: Pupils equal and round. No scleral icterus. No injection or drainage. ENT: No nasal bleeding or discharge. Mucous membranes pink and moist. ngt c/d/ i NECK: Trachea midline. No JVD. CARDIOVASCULAR: Regular rate and rhythm. RESPIRATORY: r ronhci and crackles, harsh cough GASTROINTESTINAL: Abdomen soft, non-tender, nondistended. Hepatic and splenic margins not palpable. MUSCULOSKELETAL: Extremities without clubbing, cyanosis, or edema. No obvious deformities. NEUROLOGICAL: Awake and alert. No obvious cranial nerve deficits. Motor grossly within normal limits. 1 out of 5 muscle strength in the arms and legs. Normal speech. PSYCHIATRIC: Appropriate mood and affect; insight and judgment normal. Medications and IVs Current Medications Medications (Trade) Dose Ordered Sig/Tri Route Start Time Stop Time Status Last Admin (Flomax) 0.4 mg HS PO 07/29/17 21:00 08/13/17 21:24 (Prinivil) 2.5 mg DAILY PO 07/30/17 09:00 Future hold 08/14/17 09:31 (Pill Splitter) 1 ea UNSCH PRN OTHER 07/29/17 20:30 (NS Flush) 2 ml UNSCH PRN IV FLUSH 07/29/17 20:30 (NS Flush) 2 ml BID IV FLUSH 07/29/17 21:00 08/14/17 09:00 (Tylenol) 650 mg Q4H PRN PO 07/29/17 20:30 08/14/17 09:30 (Zofran Inj) 4 mg Q6H PRN IVP 07/29/17 20:30 08/14/17 12:59 (Restoril) 15 mg HS PRN PO 07/29/17 20:30 (Narcan Inj) 0.4 mg UNSCH PRN IV PUSH 07/29/17 20:30 (Emelia-Colace) 1 tab BID PO 07/29/17 21:00 08/14/17 09:30 (Milk Of Magnesia Liq) 30 ml Q12H PRN PO 07/29/17 20:30 08/02/17 09:33 (Senokot) 17.2 mg Q12H PRN PO 07/29/17 20:30 (Dulcolax Supp) 10 mg DAILY PRN RECTAL 07/29/17 20:30 (Lactulose Liq) 30 ml DAILY PRN PO 07/29/17 20:30 (Ativan) 0.5 mg Q8H PRN PO 07/29/17 20:30 08/09/17 09:36 (Catapres) 0.1 mg Q6H PRN PO 07/29/17 20:30 (Dilaudid Pf Inj) 0.5 mg Q4H PRN IV 07/29/17 20:45 08/14/17 14:28 (Protonix Inj) 40 mg Q24H IV PUSH 07/30/17 21:00 08/13/17 21:22 (Percocet 10-325 Mg) 1 tab Q4H PRN PO 07/29/17 20:30 08/14/17 12:26 (D50w (Vial) Inj) 50 ml UNSCH PRN IV PUSH 07/29/17 20:45 (Glucagon Inj) 1 mg UNSCH PRN OTHER 07/29/17 20:45 (NovoLOG SUPPLEMENTAL SCALE) 1 ACHS SLIDING SCALE SQ 07/29/17 21:00 08/14/17 12:53 Sodium Chloride 1,000 ml @ 50 mls/hr Q20H IV 07/30/17 13:15 08/14/17 10:50 (Ecotrin Ec) 81 mg DAILY PO 07/31/17 09:00 08/14/17 09:30 (Morphine Inj) 5 mg Q2H PRN IV PUSH 07/30/17 14:00 07/30/17 22:03 (Ativan Inj) 0.5 mg Q6H PRN IV 07/31/17 03:15 08/09/17 20:00 (Phenergan Inj) 25 mg Q6H PRN IV-CENTRAL 07/31/17 03:15 08/12/17 15:06 (Heparin Inj) 5,000 units BID SQ 07/31/17 21:00 08/14/17 09:34 Cefazolin Sodium/ Dextrose 50 ml @ 100 mls/hr Q8H IV 08/01/17 12:00 08/10/17 03:18 Levofloxacin/ Dextrose 150 ml @ 100 mls/hr Q24H IV 08/01/17 18:00 08/13/17 17:57 (Lopressor) 100 mg Q12H PO 08/03/17 15:00 08/14/17 14:05 (Imdur) 60 mg DAILY@07 PO 08/04/17 07:00 08/12/17 05:50 (Levemir Inj) 15 units DAILY SQ 08/11/17 09:00 08/14/17 09:00 (Robitussin Dm 200-20 Mg/10 ml Liq) 10 ml Q6H PRN PO 08/10/17 20:45 08/14/17 10:45 (Duoneb Neb) 1 ampule QID NEB NEB 08/11/17 12:00 08/12/17 12:13 (Compazine Inj) 10 mg Q4H PRN IM 08/12/17 14:30 (Phenergan Inj) 12.5 mg Q6H PRN IM 08/12/17 16:30 A/P Assessment and Plan Assessment and Plan- 57-year-old male admitted secondary to NSTEMI with left lower extremity osteomyelitis Vomiting- egd- Reflux esophagitis 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 He has been refusing to do this. Vascular surgery consultation done, pt refused amputation as noted again. DM: UNCONTROLLED, SOME HYPOGLYCEMIA, CONTINUE INSULIN, Bronchitis: duonebs qid Chronic anemia Anemia of chronic disease Follow CBC Chronic kidney disease stage III Monitor renal function Atrial fibrillation Follow on telemetry Hypertension Continue baseline treatment Follow blood pressures Adjust treatments as needed DVT prophylaxis Heparin dispo: dc to snf done, however finding placement is an issue...Case management finding placement... Arthur Cortez MD Aug 14, 2017 15:26
[2017-08-14] MEDS: LEVOFLOXACIN 750 MG/DEXTROSE 150 ML IV SCH (18:03)
[2017-08-14] MEDS: PANTOPRAZOLE SODIUM 40 MG VIAL IV PUSH SCH (20:12)
[2017-08-14] MEDS: TAMSULOSIN HCL 0.4 MG CAP PO SCH (20:12)
[2017-08-14] MEDS: PROMETHAZINE INJ 25 MG/ML VIAL IV-CENTRAL PRN (22:23)
[2017-08-15] VITALS (8 sets, daily range): BP systolic 96–140; BP diastolic 52–77; PULSE 79–102; RESP 16–20; TEMP 97.6–99.8; O2SAT 98–100
[2017-08-15] MEDS: METOPROLOL TARTRATE 100 MG TAB PO SCH ×2 (03:00→15:29)
[2017-08-15] MEDS: ISOSORBIDE MONONITRATE 60 MG CR TAB (IMDUR) PO SCH (06:06)
[2017-08-15] MEDS: RESP: ALBUTEROL 2.5 MG/IPRATROPIUM 0.5 MG NEB (SCH) NEB (07:45)
[2017-08-15] MEDS: INSULIN ASPART SUPPLEMENTAL SCALE SQ SCH ×4 (08:00→21:00)
[2017-08-15] MEDS: SODIUM CHLORIDE 0.9% FLUSH 10 ML FLUSH IV FLUSH SCH ×2 (09:00→20:25)
[2017-08-15] MEDS: ASPIRIN EC 81 MG TABEC PO SCH (09:48)
[2017-08-15] MEDS: INSULIN DETEMIR 100 UNITS/ML VIAL SQ SCH (09:48)
[2017-08-15] MEDS: DOCUSATE SODIUM 50 MG/SENNA 8.6 MG TAB PO SCH ×2 (09:48→20:25)
[2017-08-15] MEDS: LISINOPRIL 5 MG TAB PO SCH (09:48)
[2017-08-15] MEDS: HEPARIN SODIUM - SQ 10,000 UNITS/ML VIAL SQ SCH ×2 (09:49→20:25)
[2017-08-15] MEDS: HYDROmorphone HCL PF 2 MG/ML VIAL IV PRN ×2 (13:16→20:24)
--- NOTE | 2017-08-15 13:19 | HHI.PR ---
Subjective Remarks patient non compliant with dressing changes no nausea or vomiting + BM- good- no diarrhea pain well controlled low grade fever yesterday this am t down Objective Vitals Vital Signs Date Time Temp Pulse Resp B/P (MAP) Pulse Ox O2 Delivery O2 Flow Rate FiO2 08/15/17 08:00 100 08/15/17 08:00 98.6 98 18 140/77 (98) 100 08/15/17 08:00 Nasal Cannula 2.00 08/15/17 04:00 87 08/15/17 04:00 97.6 79 18 101/61 (74) 99 08/15/17 00:00 98.2 83 16 96/52 (67) 99 08/15/17 00:00 81 08/14/17 22:53 18 08/14/17 21:13 18 08/14/17 20:00 Nasal Cannula 4.00 21 08/14/17 20:00 96 08/14/17 20:00 108 08/14/17 20:00 99.5 119 20 163/64 (97) 97 08/14/17 16:00 98.7 90 20 100/64 (76) 99 I/O 08/14/17 08/14/17 08/14/17 08/15/17 08/15/17 08/15/17 07:00 15:00 23:00 07:00 15:00 23:00 Intake Total 240 ml 960 ml 1209 ml 360 ml Output Total 600 ml Balance 240 ml 960 ml 1209 ml -240 ml Intake Oral 240 ml 960 ml 480 ml 360 ml IV Total 729 ml Output Urine Total 600 ml # Voids 2 2 # Bowel Movements 1 1 0 Result Diagram: 08/13/17 0615 Imaging Last Impressions Abdomen/Pelvis CT 08/01/17 0000 Signed Impressions: Service Date/Time: Tuesday, August 01, 2017 14:04 - CONCLUSION: 1. No dilated loops of small or large bowel. 2. Nonobstructing 4 mm calcified stone upper pole right kidney. 3. Cystic lesion upper pole left kidney with thin rim calcification; Bosniak 2 lesion should be followed with next examination in 6- 9 months. 4. Bilateral pleural effusions, right greater than left and multifocal areas of consolidation in the lower right lung. Davin Willett MD Liver Ultrasound 07/31/17 0000 Signed Impressions: Service Date/Time: Monday, July 31, 2017 15:35 - CONCLUSION: 1. Limited examination due to extensive bowel gas and patient's inability to cooperate with the exam. 2. Liver is slightly prominent with increased echogenicity suggesting some degree of fatty infiltration. 3. Ascites. Bilateral pleural effusions. Chau Silvestre MD Abdomen X-Ray 07/30/17 0000 Signed Impressions: Service Date/Time: July 14:48 - CONCLUSION: No bowel obstruction, ileus or free air. Degenerative changes and scoliosis of the thoracolumbar spine. Nixon Garcia MD Chest X-Ray 07/29/17 1710 Signed Impressions: Service Date/Time: Saturday, July 29, 2017 17:43 - CONCLUSION: Small bilateral effusions and slight persistent parenchymal opacity at the left lung base. Drake Espinal MD Objective Remarks awake and alert, oriented x 3 anicteric lungs no rales regular rhythm abdomen- soft, nontender extremities- right LE- elastic dressing in place, on boot A/P Problem List: (1) Osteomyelitis of foot ICD Code: M86.9 - Osteomyelitis, unspecified Status: Chronic (2) Nrmbn-[id number]-[id number] kidney injury ICD Code: N17.9 - Acute kidney failure, unspecified; N18.9 - Chronic kidney disease, unspecified Status: Acute (3) DM (diabetes mellitus) ICD Code: E11.9 - Type 2 diabetes mellitus without complications Status: Chronic (4) NSTEMI (non-ST elevation myocardial infarction) ICD Code: I21.4 - Non-ST elevation (NSTEMI) myocardial infarction Status: Acute (5) CAD (coronary artery disease) ICD Code: I25.10 - Atherosclerotic heart disease of [place] coronary artery without angina pectoris Status: Chronic (6) Ischemic cardiomyopathy ICD Code: I25.5 - Ischemic cardiomyopathy Status: Chronic (7) Osteomyelitis of ankle or foot, left, acute ICD Code: M86.172 - Other acute osteomyelitis, left ankle and foot Assessment and Plan 57-year-old male admitted secondary to NSTEMI with left lower extremity osteomyelitis Diabetic ulcers- MRSA Left lower extremity foot infection Septic arthritis left lower extremity Continue IV abx- ideally should be on IV Levaquin and IV Ancef. 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 ADD: 5 pm- blood culture back - MRSA 2/2 sets low grade fever last evening DC Levaquin and ancef- patient refusing some doses on review of chart Start IV Vancomycin - spoke with pharmacy- consulted for loading and dosing will reconsult ID service check BMP, CBC in am discussed with patient Problem Qualifiers (1) CAD (coronary artery disease): Qualified Codes: I25.110 - Atherosclerotic heart disease of [place] coronary artery with unstable angina pectoris Vinayak Calderon MD Aug 15, 2017 13:19
[2017-08-15] MEDS: ONDANSETRON HCL 4 MG/2 ML VIAL IVP PRN ×2 (15:29→20:46)
[2017-08-15] MEDS: oxyCODONE/ACETAMINOPHEN 10 MG/325 MG TAB PO PRN (15:30)
[2017-08-15] MEDS ORDERED: Vancomycin Consult Pharmacy 1 EA OTHER SCH (18:45)
[2017-08-15] MEDS ORDERED: VANCOMYCIN INJ 2,500 MG in SODIUM CHLORID 0.9% 500 ML INJ 500 ML IV ONE (20:00)
[2017-08-15] MEDS: PANTOPRAZOLE SODIUM 40 MG VIAL IV PUSH SCH (20:25)
[2017-08-15] MEDS: TAMSULOSIN HCL 0.4 MG CAP PO SCH (20:25)
[2017-08-15 21:01] LABS: BICARBONATE 24.7 MEQ/L (21.0-32.0); CALCIUM 8.4 MG/DL (8.5-10.1); CREATININE 1.7 MG/DL (0.60-1.30)
[2017-08-15] MEDS ORDERED: SODIUM CHLORIDE 1 GRAM TAB PO ONE (21:45)
[2017-08-15] MEDS ORDERED: SODIUM POLYSTYRENE SULFONATE SUSP 15 GM/60 ML CUP PO ONE (21:45)
[2017-08-15] MEDS: SODIUM CHLOR 0.9% 1000 ML INJ 1,000 ML IV SCH (22:27)
[2017-08-16] VITALS (14 sets, daily range): BP systolic 102–138; BP diastolic 65–85; PULSE 73–119; RESP 15–21; TEMP 97.1–99.3; O2SAT 97–100
[2017-08-16] MEDS: METOPROLOL TARTRATE 100 MG TAB PO SCH ×2 (00:26→17:14)
[2017-08-16] MEDS: HYDROmorphone HCL PF 2 MG/ML VIAL IV PRN ×2 (00:38→05:02)
[2017-08-16] MEDS: guaiFENesin/DEXTROMETHORPHAN 200 MG/20 MG/10 ML CUP PO PRN ×2 (00:38→22:30)
[2017-08-16] MEDS: ONDANSETRON HCL 4 MG/2 ML VIAL IVP PRN ×2 (05:02→18:27)
[2017-08-16] MEDS: ISOSORBIDE MONONITRATE 30 MG CR TAB (IMDUR) PO SCH (05:20)
[2017-08-16 05:34] LABS: AUTOMATED NEUTROPHIL # 3.6 TH/MM3 (1.8-7.7); BASOPHIL % 0.3 % (0.0-2.0); EOSINOPHIL # 0.1 TH/MM3 (0-0.4); EOSINOPHIL % 1.6 % (0.0-4.0); LYMPH % 18.6 % (9.0-44.0); MEAN CELL VOLUME 72.9 FL (80.0-100.0); MEAN CORPUSCULAR HEMOGLOBIN 24.2 PG (27.0-34.0); MEAN CORPUSCULAR HGB CONC 33.3 % (32.0-36.0); MEAN PLATELET VOLUME 7.5 FL (7.0-11.0); MONO % 11.2 % (0.0-8.0); MONOCYTE # 0.6 TH/MM3 (0-0.9); NEUT % 68.3 % (16.0-70.0); PLATELET COUNT 195 TH/MM3 (150-450); RED BLOOD COUNT 2.83 MIL/MM3 (4.50-5.90); RED CELL DISTRIBUTION WIDTH 22.2 % (11.6-17.2); WHITE BLOOD COUNT 5.2 TH/MM3 (4.0-11.0)
[2017-08-16 05:49] LABS: ALBUMIN 1.8 GM/DL (3.4-5.0); AST (GOT) 20 U/L (15-37); BICARBONATE 27.6 MEQ/L (21.0-32.0); BLOOD UREA NITROGEN 35 MG/DL (7-18); CALCIUM 7.9 MG/DL (8.5-10.1); CHLORIDE 94 MEQ/L (98-107); CREATININE 1.46 MG/DL (0.60-1.30); GLOMERULAR FILTRATION RATE 50 ML/MIN (>89); GLUCOSE,RANDOM 139 MG/DL (74-106); SODIUM (NA) 127 MEQ/L (136-145)
[2017-08-16 05:51] LABS: ALT (GPT) 8 U/L (12-78)
[2017-08-16 05:52] LABS: ALKALINE PHOSPHATASE 294 U/L (45-117); HEMATOCRIT 20.7 % (39.0-51.0); HEMOGLOBIN 6.9 GM/DL (13.0-17.0); RANDOM VANCOMYCIN 17.9 COMMENT; TOTAL BILIRUBIN ADULT 0.6 MG/DL (0.2-1.0); TOTAL PROTEIN 5.6 GM/DL (6.4-8.2)
[2017-08-16] MEDS ORDERED: FUROSEMIDE 20 MG/2 ML VIAL IV PUSH SCH (06:30)
[2017-08-16] MEDS ORDERED: SODIUM CHLOR 0.9% 250 ML INJ 250 ML IV ONE (06:30)
[2017-08-16] MEDS: INSULIN ASPART SUPPLEMENTAL SCALE SQ SCH ×4 (08:00→22:59)
[2017-08-16] MEDS: INSULIN DETEMIR 100 UNITS/ML VIAL SQ SCH (08:53)
[2017-08-16] MEDS: DOCUSATE SODIUM 50 MG/SENNA 8.6 MG TAB PO SCH ×2 (08:55→21:00)
[2017-08-16] MEDS: HEPARIN SODIUM - SQ 10,000 UNITS/ML VIAL SQ SCH ×2 (08:55→21:01)
[2017-08-16] MEDS: ASPIRIN EC 81 MG TABEC PO SCH (08:55)
[2017-08-16] MEDS: oxyCODONE/ACETAMINOPHEN 10 MG/325 MG TAB PO PRN ×3 (08:56→17:15)
[2017-08-16] MEDS: LISINOPRIL 5 MG TAB PO SCH (08:56)
[2017-08-16] MEDS: SODIUM CHLORIDE 0.9% FLUSH 10 ML FLUSH IV FLUSH SCH ×2 (08:59→21:00)
--- NOTE | 2017-08-16 09:20 | EKG ---
Date Performed: 08/15/2017 Time Performed: 17:15:00 PTAGE: 57 years EKG: Sinus rhythm Possible anterior infarct - age undetermined Lateral ST-T changes may be due to myocardial ischemia Low QRS voltages in limb leads Abnormal ECG PREVIOUS TRACING : 08/09/2017 18.47 No significant change from previous tracing noted. DOCTOR: Rogelio Jaramillo Interpretating Date/Time 08/16/2017 09:19:30
[2017-08-16 09:51] LABS: OVALOCYTES 1+ (NORMAL)
--- NOTE | 2017-08-16 10:51 | HHI.PR ---
Subjective Remarks no complains Objective Vitals Vital Signs Date Time Temp Pulse Resp B/P (MAP) Pulse Ox O2 Delivery O2 Flow Rate FiO2 08/16/17 08:00 97.8 88 18 104/69 (81) 100 08/16/17 04:34 Nasal Cannula 4.00 08/16/17 04:00 73 08/16/17 04:00 97.3 76 16 102/67 (79) 99 08/16/17 00:00 Nasal Cannula 4.00 08/16/17 00:00 80 08/16/17 00:00 98.5 83 18 105/66 (79) 97 08/15/17 21:04 99 Nasal Cannula 4.00 08/15/17 20:00 99.8 100 18 122/76 (91) 99 08/15/17 20:00 102 08/15/17 20:00 Nasal Cannula 4.00 08/15/17 16:50 98.1 86 20 96/72 (80) 99 08/15/17 16:30 20 08/15/17 16:00 100 08/15/17 13:46 20 08/15/17 12:00 97.9 82 17 136/69 (91) 98 I/O 08/15/17 08/15/17 08/15/17 08/16/17 08/16/17 08/16/17 07:00 15:00 23:00 07:00 15:00 23:00 Intake Total 360 ml 525 ml 240 ml Output Total 600 ml 200 ml Balance -240 ml 525 ml 40 ml Intake Oral 360 ml 240 ml IV Total 525 ml Output Urine Total 600 ml 200 ml # Bowel Movements 0 0 Result Diagram: 08/16/17 0510 08/16/17 0510 Imaging Last Impressions Abdomen/Pelvis CT 08/01/17 0000 Signed Impressions: Service Date/Time: Tuesday, August 01, 2017 14:04 - CONCLUSION: 1. No dilated loops of small or large bowel. 2. Nonobstructing 4 mm calcified stone upper pole right kidney. 3. Cystic lesion upper pole left kidney with thin rim calcification; Bosniak 2 lesion should be followed with next examination in 6- 9 months. 4. Bilateral pleural effusions, right greater than left and multifocal areas of consolidation in the lower right lung. Davin Willett MD Liver Ultrasound 07/31/17 0000 Signed Impressions: Service Date/Time: Monday, July 31, 2017 15:35 - CONCLUSION: 1. Limited examination due to extensive bowel gas and patient's inability to cooperate with the exam. 2. Liver is slightly prominent with increased echogenicity suggesting some degree of fatty infiltration. 3. Ascites. Bilateral pleural effusions. Chau Silvestre MD Abdomen X-Ray 07/30/17 0000 Signed Impressions: Service Date/Time: July 14:48 - CONCLUSION: No bowel obstruction, ileus or free air. Degenerative changes and scoliosis of the thoracolumbar spine. Nixon Garcia MD Chest X-Ray 07/29/17 1710 Signed Impressions: Service Date/Time: Saturday, July 29, 2017 17:43 - CONCLUSION: Small bilateral effusions and slight persistent parenchymal opacity at the left lung base. Drake Espinal MD Objective Remarks awake and alert, oriented x 3 anicteric lungs no rales regular rhythm abdomen- soft, nontender extremities- right LE-- lt serosanqwuinous, pus drainage A/P Problem List: (1) Osteomyelitis of foot ICD Code: M86.9 - Osteomyelitis, unspecified Status: Chronic (2) Ulcfc-cq-ggnorvb kidney injury ICD Code: N17.9 - Acute kidney failure, unspecified; N18.9 - Chronic kidney disease, unspecified Status: Acute (3) DM (diabetes mellitus) ICD Code: E11.9 - Type 2 diabetes mellitus without complications Status: Chronic (4) NSTEMI (non-ST elevation myocardial infarction) ICD Code: I21.4 - Non-ST elevation (NSTEMI) myocardial infarction Status: Acute (5) CAD (coronary artery disease) ICD Code: I25.10 - Atherosclerotic heart disease of [place] coronary artery without angina pectoris Status: Chronic (6) Ischemic cardiomyopathy ICD Code: I25.5 - Ischemic cardiomyopathy Status: Chronic (7) Osteomyelitis of ankle or foot, left, acute ICD Code: M86.172 - Other acute osteomyelitis, left ankle and foot Assessment and Plan 57-year-old male admitted secondary to NSTEMI with left lower extremity osteomyelitis New MRSA- 08/15- culture + again Diabetic ulcers- MRSA Left lower extremity foot infection Septic arthritis left lower extremity Follow CBC Podiatry following Started IV Vancomycin started 08/15- Pharmacy dosing Reconsult ID Acute on Chronic anemia- Hemoglobin dropped again today 6.9 no signs of active GI bleeding sp transfusion hematology consult for input Vomiting-- resolved egd- Reflux esophagitis 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 ADD: 08/15 5 pm- blood culture back - MRSA 2/2 sets low grade fever last evening DC Levaquin and ancef- patient refusing some doses on review of chart Start IV Vancomycin - spoke with pharmacy- consulted for loading and dosing will reconsult ID service check BMP, CBC in am discussed with patient Problem Qualifiers (1) CAD (coronary artery disease): Qualified Codes: I25.110 - Atherosclerotic heart disease of [place] coronary artery with unstable angina pectoris Vinayak Calderon MD Aug 16, 2017 10:51 Arthur Cortez MD Aug 17, 2017 07:18
[2017-08-16] MEDS ORDERED: VANCOMYCIN INJ 2,500 MG in SODIUM CHLORID 0.9% 500 ML INJ 500 ML IV ONE (15:00)
[2017-08-16] MEDS: SODIUM CHLOR 0.9% 1000 ML INJ 1,000 ML IV SCH (18:27)
[2017-08-16] MEDS ORDERED: FUROSEMIDE 20 MG/2 ML VIAL IV PUSH ONE (20:00)
[2017-08-16] MEDS: PROMETHAZINE INJ 25 MG/ML VIAL IM PRN (21:00)
[2017-08-16] MEDS: PANTOPRAZOLE SODIUM 40 MG VIAL IV PUSH SCH (21:00)
[2017-08-16] MEDS: ACETAMINOPHEN 325 MG TAB PO PRN (21:00)
[2017-08-16] MEDS: TAMSULOSIN HCL 0.4 MG CAP PO SCH (21:00)
[2017-08-17] VITALS (9 sets, daily range): BP systolic 95–134; BP diastolic 52–72; PULSE 71–96; RESP 16–20; TEMP 97.3–98.7; O2SAT 94–100
[2017-08-17] MEDS: ACETAMINOPHEN 325 MG TAB PO PRN ×2 (00:06→03:05)
[2017-08-17 00:31] LABS: HEMATOCRIT 25.5 % (39.0-51.0); HEMOGLOBIN 8.6 GM/DL (13.0-17.0)
[2017-08-17] MEDS: SODIUM CHLOR 0.9% 1000 ML INJ 1,000 ML IV SCH ×2 (00:35→16:23)
[2017-08-17] MEDS: METOPROLOL TARTRATE 100 MG TAB PO SCH ×2 (03:05→16:23)
[2017-08-17] MEDS: ISOSORBIDE MONONITRATE 30 MG CR TAB (IMDUR) PO SCH (06:47)
--- NOTE | 2017-08-17 07:16 | HHI.FPPN ---
Subjective Remarks c/o cough c/o weakness wants to try abx for two more weeks then he will reconsider amputation d/w RN Objective Vitals Vital Signs Date Time Temp Pulse Resp B/P (MAP) Pulse Ox O2 Delivery O2 Flow Rate FiO2 08/17/17 04:00 98.1 84 18 103/69 (80) 94 08/17/17 00:10 98.4 91 20 123/72 (89) 98 08/16/17 22:55 88 20 08/16/17 20:00 99.3 94 21 118/65 (82) 98 08/16/17 17:00 97.1 119 18 136/85 08/16/17 16:30 96 08/16/17 16:23 97.1 99 15 122/80 08/16/17 16:00 97.1 99 19 122/80 (94) 100 08/16/17 13:20 98.7 105 20 138/82 100 08/16/17 12:47 98.7 90 20 113/74 99 08/16/17 12:00 90 08/16/17 12:00 98.0 95 18 109/73 (85) 97 08/16/17 10:43 99 Nasal Cannula 4.00 08/16/17 08:15 91 08/16/17 08:00 97.8 88 18 104/69 (81) 100 I/O 08/16/17 08/16/17 08/16/17 08/17/17 08/17/17 08/17/17 07:00 15:00 23:00 07:00 15:00 23:00 Intake Total 240 ml 100 ml 1835 ml 500 ml Output Total 200 ml 500 ml Balance 40 ml 100 ml 1835 ml 0 ml Intake Oral 240 ml 960 ml 500 ml Packed Cells 800 ml Blood Product IV Normal Saline Flush 100 ml 75 ml Output Urine Total 200 ml 500 ml # Voids 4 # Bowel Movements 0 1 Result Diagram: 08/17/17 0020 08/16/17 0510 Objective Remarks GENERAL: SKIN: Warm and dry. large ulcerations LLE HEAD: Atraumatic. Normocephalic. EYES: Pupils equal and round. No scleral icterus. No injection or drainage. ENT: No nasal bleeding or discharge. Mucous membranes pink and moist. ngt c/d/ i NECK: Trachea midline. No JVD. CARDIOVASCULAR: Regular rate and rhythm. RESPIRATORY: r ronhci and crackles, harsh cough GASTROINTESTINAL: Abdomen soft, non-tender, nondistended. Hepatic and splenic margins not palpable. MUSCULOSKELETAL: Extremities without clubbing, cyanosis, or edema. No obvious deformities. NEUROLOGICAL: Awake and alert. No obvious cranial nerve deficits. Motor grossly within normal limits. 1 out of 5 muscle strength in the arms and legs. Normal speech. PSYCHIATRIC: Appropriate mood and affect; insight and judgment normal. Medications and IVs Current Medications Medications (Trade) Dose Ordered Sig/Tri Route Start Time Stop Time Status Last Admin (Flomax) 0.4 mg HS PO 07/29/17 21:00 08/16/17 21:00 (Prinivil) 2.5 mg DAILY PO 07/30/17 09:00 Future hold 08/15/17 09:48 (Pill Splitter) 1 ea UNSCH PRN OTHER 07/29/17 20:30 (NS Flush) 2 ml UNSCH PRN IV FLUSH 07/29/17 20:30 (NS Flush) 2 ml BID IV FLUSH 07/29/17 21:00 08/16/17 21:00 (Tylenol) 650 mg Q4H PRN PO 07/29/17 20:30 08/17/17 03:05 (Zofran Inj) 4 mg Q6H PRN IVP 07/29/17 20:30 08/16/17 18:27 (Restoril) 15 mg HS PRN PO 07/29/17 20:30 (Narcan Inj) 0.4 mg UNSCH PRN IV PUSH 07/29/17 20:30 (Emelia-Colace) 1 tab BID PO 07/29/17 21:00 08/16/17 21:00 (Milk Of Magnesia Liq) 30 ml Q12H PRN PO 07/29/17 20:30 08/02/17 09:33 (Senokot) 17.2 mg Q12H PRN PO 07/29/17 20:30 (Dulcolax Supp) 10 mg DAILY PRN RECTAL 07/29/17 20:30 (Lactulose Liq) 30 ml DAILY PRN PO 07/29/17 20:30 (Ativan) 0.5 mg Q8H PRN PO 07/29/17 20:30 08/09/17 09:36 (Catapres) 0.1 mg Q6H PRN PO 07/29/17 20:30 (Dilaudid Pf Inj) 0.5 mg Q4H PRN IV 07/29/17 20:45 08/16/17 05:02 (Protonix Inj) 40 mg Q24H IV PUSH 07/30/17 21:00 08/16/17 21:00 (Percocet 10-325 Mg) 1 tab Q4H PRN PO 07/29/17 20:30 08/16/17 17:15 (D50w (Vial) Inj) 50 ml UNSCH PRN IV PUSH 07/29/17 20:45 (Glucagon Inj) 1 mg UNSCH PRN OTHER 07/29/17 20:45 (NovoLOG SUPPLEMENTAL SCALE) 1 ACHS SLIDING SCALE SQ 07/29/17 21:00 08/16/17 22:59 Sodium Chloride 1,000 ml @ 50 mls/hr Q20H IV 07/30/17 13:15 08/14/17 23:08 (Ecotrin Ec) 81 mg DAILY PO 07/31/17 09:00 08/16/17 08:55 (Morphine Inj) 5 mg Q2H PRN IV PUSH 07/30/17 14:00 07/30/17 22:03 (Ativan Inj) 0.5 mg Q6H PRN IV 07/31/17 03:15 08/09/17 20:00 (Phenergan Inj) 25 mg Q6H PRN IV-CENTRAL 07/31/17 03:15 08/14/17 22:23 (Heparin Inj) 5,000 units BID SQ 07/31/17 21:00 08/16/17 21:01 (Lopressor) 100 mg Q12H PO 08/03/17 15:00 08/17/17 03:05 (Levemir Inj) 15 units DAILY SQ 08/11/17 09:00 08/16/17 08:53 (Robitussin Dm 200-20 Mg/10 ml Liq) 10 ml Q6H PRN PO 08/10/17 20:45 08/16/17 22:30 (Compazine Inj) 10 mg Q4H PRN IM 08/12/17 14:30 (Phenergan Inj) 12.5 mg Q6H PRN IM 08/12/17 16:30 08/16/17 21:00 (Imdur) 30 mg DAILY@07 PO 08/16/17 07:00 08/17/17 06:47 Pharmacy Profile Note 0 ml @ 0 mls/hr UNSCH OTHER 08/15/17 18:45 Iron Sucrose 200 mg/Sodium Chloride 110 ml @ 110 mls/hr DAILY IV 08/17/17 09:00 08/19/17 09:59 (Vitamin C) 1,000 mg DAILY PO 08/17/17 09:00 (Folate) 1 mg DAILY PO 08/17/17 09:00 A/P Assessment and Plan Assessment and Plan- 57-year-old male admitted secondary to NSTEMI with left lower extremity osteomyelitis Vomiting- egd- Reflux esophagitis 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 He has been refusing to do this. Vascular surgery consultation done, pt refused amputation as noted again. DM: UNCONTROLLED, SOME HYPOGLYCEMIA, CONTINUE INSULIN, Bronchitis: duonebs qid Iron defic anemia, chronic dz, renal dz: heme onc workup, iv iron, Chronic kidney disease stage III Monitor renal function Atrial fibrillation Follow on telemetry Hypertension Continue baseline treatment Follow blood pressures Adjust treatments as needed DVT prophylaxis Heparin dispo: dc to snf done, however finding placement is an issue...Case management finding placement... Arthur Cortez MD Aug 17, 2017 07:16
--- NOTE | 2017-08-17 07:23 | MB ---
cc: JENNIFER ALARCON DATE OF CONSULTATION 08/16/2017 REASON FOR CONSULTATION Patient with persistent anemia requiring packed red blood cell transfusions. HISTORY OF PRESENT ILLNESS This is a 57-year-old male who has multiple medical issues including history of diabetic foot ulcer, staph and strep bacteremia, history of anemia, BPH, history of chronic kidney disease, atrial fibrillation, who was admitted to the hospital with non-ST elevation NV. He has also been recommended to have amputation of his lower extremity. The patient has declined this in the past. On this admission the patient was started on heparin and was given aspirin. Cardiology is following the patient. The patient has a history of diabetes type 2 and is on insulin. Hematology has been consulted to make further recommendations regarding persistent anemia with microcytosis. Since his hospital admission the patient has received a total of 4 units of packed red blood cells. His hemoglobin dropped this a.m. to 6.9 and he is getting another unit today. His remaining blood counts have remained stable, WBC 5.32 and platelet count 195. On admission he developed acute on chronic kidney failure. His creatinine now is 1.9 with a GFR of 63. He had anemia studies which showed low iron levels and low iron saturation. His ferritin was 324. He also had liver dysfunction with AST of 389, ALT of 84. His liver functions have now normalized with AST of 20, ALT of 8. His hepatitis panel was negative. He has not had any nose bleeds or gum bleeds, no petechiae or bruising. No bright red blood per rectum or melena. He grew gram-positive cocci in his blood on 08/14/2017. REVIEW OF SYSTEMS A comprehensive review of systems was completed which is negative except as described in the HPI. PAST MEDICAL HISTORY 1. Diabetes. 2. Diabetic foot ulcer. 3. Atrial fibrillation. 4. Chronic kidney disease. 5. History of appendectomy. 6. History of coronary stents. 7. Charcot feet. 8. 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 ALLERGIES He is allergic to CODEINE. MEDICATIONS 1. Isosorbide mononitrate. 2. Promethazine. 3. Prochlorperazine. 4. Insulin. 5. Robitussin. 6. Metoprolol 100 mg p.o. q.12h. 7. Aspirin 81 mg p.o. daily. 8. Ativan 0.5 q.6h. p.r.n. 9. Pantoprazole 40 mg q.24h. 10.Morphine sulfate IV 5 mg q.2h. p.r.n. 11.Lisinopril 2.5 mg p.o. daily. 12.Tamsulosin 0.4 mg p.o. q.h.s. 13.Dilaudid 0.5 q.4h. P.r.n. FAMILY HISTORY The family history was reviewed and is noncontributory to this admission. SOCIAL HISTORY No history of tobacco abuse. He rarely drinks alcohol. No illicit drug use. PHYSICAL EXAMINATION VITAL SIGNS: Blood pressure 118/65, pulse in the 90s, temperature 99.3. O2 sats are 98% on room air. GENERAL: A chronically ill-appearing male in no apparent distress. HEENT: Pupils are equal, round and reactive to light. EOMI. No oral thrush. No oral lesions. NECK: Supple. No JVD. No bruits. No lymphadenopathy. CHEST: Clear to auscultation bilaterally. CARDIAC: S1, S2, regular rate and rhythm. ABDOMEN: Distended due to obesity. Bowel sounds are present. EXTREMITIES: The patient has Charcot feet. There is ulceration in the left ankle with a crater. There is an ulceration in the lateral aspect of the left foot. The patient has an Unna boot. NEUROLOGIC: No focal deficit. PSYCHIATRIC: Mood and affect is appropriate. LABORATORY WBC 5.2, hemoglobin 6.9, MCV 72.9, platelet count 195. Serum chemistries show sodium 127, potassium 4.9, CO2 27.6, BUN 5, creatinine 1.46, GFR 50, AST 20, ALT 8. IMAGING CT of the abdomen and pelvis was reviewed. There is a nonobstructing 4 mm calcified stone in the upper right kidney, cystic lesion in the upper pole of the left kidney, bilateral pleural effusions right greater than left and multiple areas of consolidation in the lower right lung. Liver ultrasound shows fatty liver. ASSESSMENT AND PLAN This is a 57-year-old male who has a past medical history of diabetes type 2, chronic foot ulcers, recent sepsis from infected left foot with extensive osteomyelitis and septic ankle, history of CHF and recent non-ST elevation myocardial infarction, who has persistent anemia. 1. Anemia with severe microcytosis. Anemia studies are consistent with iron deficiency. He also has chronic kidney disease which is contributing to his anemia. He has multiple co-morbidities including diabetic foot with sepsis. I would recommend iron infusion. Once iron is repleted I would recommend erythropoietin injections. We will obtain hemolysis labs. Will check HIV status. Hepatitis panel was negative. Will obtain a serum protein electrophoresis. Obtain a stool hemoccult to rule out any GI causes of anemia. 2. Diabetic ulcers involving both lower extremities. He has sepsis. 3. Non-ST elevation NV; currently being managed by cardiology. 4. History of chronic kidney disease, stage III. Thank you for allowing me to participate in the care of this patient. I will continue to follow this patient along. MD KATHLEEN Angel/ROBEL /11:32 PM /7:01 AM
[2017-08-17] MEDS: INSULIN ASPART SUPPLEMENTAL SCALE SQ SCH ×4 (08:00→20:57)
[2017-08-17] MEDS: IRON SUCROSE INJ 200 MG in SODIUM CHLORIDE 0.9% INJ 100 ML IV SCH (09:00)
[2017-08-17] MEDS: SODIUM CHLORIDE 0.9% FLUSH 10 ML FLUSH IV FLUSH SCH ×2 (09:00→20:53)
[2017-08-17] MEDS: guaiFENesin/DEXTROMETHORPHAN 200 MG/20 MG/10 ML CUP PO PRN ×2 (09:04→16:10)
[2017-08-17] MEDS: oxyCODONE/ACETAMINOPHEN 10 MG/325 MG TAB PO PRN ×3 (09:05→20:52)
[2017-08-17] MEDS: ASCORBIC ACID 500 MG TAB PO SCH (09:06)
[2017-08-17] MEDS: FOLIC ACID 1 MG TAB PO SCH (09:06)
[2017-08-17] MEDS: ASPIRIN EC 81 MG TABEC PO SCH (09:06)
[2017-08-17] MEDS: LISINOPRIL 5 MG TAB PO SCH (09:06)
[2017-08-17] MEDS: DOCUSATE SODIUM 50 MG/SENNA 8.6 MG TAB PO SCH ×2 (09:06→20:53)
[2017-08-17] MEDS: HEPARIN SODIUM - SQ 10,000 UNITS/ML VIAL SQ SCH ×2 (09:07→20:52)
[2017-08-17] MEDS: INSULIN DETEMIR 100 UNITS/ML VIAL SQ SCH (09:07)
--- NOTE | 2017-08-17 13:14 | HHI.IDPN ---
Subjective Subjective Remarks reconsulted Pt developped fever on 08/14 and BC were dne: theuy all now + for MRSA / bottles Pt cont to refuse ampiutaiton Vancomycin added Tuesday 08/15 no fever today Antibiotics cefazoline 2 gm q 8 levaquine daily IV Lines PICC Allergies: Coded Allergies: codeine (Verified Allergy, Severe, Cardiac arrest, 07/29/17) PT REPORT HIS HEART STOP AFTER Objective . Vital Signs Date Time Temp Pulse Resp B/P (MAP) Pulse Ox O2 Delivery O2 Flow Rate FiO2 08/17/17 12:25 18 08/17/17 12:00 98.7 86 18 120/72 (88) 99 08/17/17 10:37 98 Nasal Cannula 2.00 08/17/17 08:00 97.5 76 18 96/64 (75) 100 08/17/17 04:00 98.1 84 18 103/69 (80) 94 08/17/17 00:10 98.4 91 20 123/72 (89) 98 08/16/17 22:55 88 20 08/16/17 20:00 99.3 94 21 118/65 (82) 98 08/16/17 17:00 97.1 119 18 136/85 08/16/17 16:30 96 08/16/17 16:23 97.1 99 15 122/80 08/16/17 16:00 97.1 99 19 122/80 (94) 100 08/16/17 13:20 98.7 105 20 138/82 100 . Laboratory Tests Test 08/16/17 05:10 08/17/17 00:20 08/17/17 05:35 White Blood Count 5.2 TH/MM3 Red Blood Count 2.83 MIL/MM3 Hemoglobin 6.9 GM/DL 8.6 GM/DL Hematocrit 20.7 % 25.5 % Mean Corpuscular Volume 72.9 FL Mean Corpuscular Hemoglobin 24.2 PG Mean Corpuscular Hemoglobin Concent 33.3 % Red Cell Distribution Width 22.2 % Platelet Count 195 TH/MM3 Mean Platelet Volume 7.5 FL Neutrophils (%) (Auto) 68.3 % Lymphocytes (%) (Auto) 18.6 % Monocytes (%) (Auto) 11.2 % Eosinophils (%) (Auto) 1.6 % Basophils (%) (Auto) 0.3 % Neutrophils # (Auto) 3.6 TH/MM3 Lymphocytes # (Auto) 1.0 TH/MM3 Monocytes # (Auto) 0.6 TH/MM3 Eosinophils # (Auto) 0.1 TH/MM3 Basophils # (Auto) 0.0 TH/MM3 CBC Comment AUTO DIFF Differential Comment AUTO DIFF CONFIRMED Ovalocytes 1+ Haptoglobin 390 MG/DL Laboratory Tests Test 08/15/17 19:41 08/16/17 05:10 08/17/17 05:35 08/17/17 09:19 Blood Urea Nitrogen 40 MG/DL 35 MG/DL Creatinine 1.70 MG/DL 1.46 MG/DL Random Glucose 207 MG/DL 139 MG/DL Calcium Level 8.4 MG/DL 7.9 MG/DL Sodium Level 123 MEQ/L 127 MEQ/L Potassium Level 5.6 MEQ/L 4.9 MEQ/L Chloride Level 91 MEQ/L 94 MEQ/L Carbon Dioxide Level 24.7 MEQ/L 27.6 MEQ/L Anion Gap 7 MEQ/L 5 MEQ/L Estimat Glomerular Filtration Rate 42 ML/MIN 50 ML/MIN Total Protein 5.6 GM/DL Albumin 1.8 GM/DL Alkaline Phosphatase 294 U/L Aspartate Amino Transf (AST/SGOT) 20 U/L Alanine Aminotransferase (ALT/SGPT) 8 U/L Total Bilirubin 0.6 MG/DL Lactate Dehydrogenase 193 U/L Vitamin B12 Level 978 PG/ML Imaging Last Impressions Abdomen/Pelvis CT 08/01/17 0000 Signed Impressions: Service Date/Time: Tuesday, August 01, 2017 14:04 - CONCLUSION: 1. No dilated loops of small or large bowel. 2. Nonobstructing 4 mm calcified stone upper pole right kidney. 3. Cystic lesion upper pole left kidney with thin rim calcification; Bosniak 2 lesion should be followed with next examination in 6- 9 months. 4. Bilateral pleural effusions, right greater than left and multifocal areas of consolidation in the lower right lung. Davin Willett MD Liver Ultrasound 07/31/17 0000 Signed Impressions: Service Date/Time: Monday, July 31, 2017 15:35 - CONCLUSION: 1. Limited examination due to extensive bowel gas and patient's inability to cooperate with the exam. 2. Liver is slightly prominent with increased echogenicity suggesting some degree of fatty infiltration. 3. Ascites. Bilateral pleural effusions. Chau Silvestre MD Abdomen X-Ray 07/30/17 0000 Signed Impressions: Service Date/Time: July 14:48 - CONCLUSION: No bowel obstruction, ileus or free air. Degenerative changes and scoliosis of the thoracolumbar spine. Nixon Garcia MD Chest X-Ray 07/29/17 1710 Signed Impressions: Service Date/Time: Saturday, July 29, 2017 17:43 - CONCLUSION: Small bilateral effusions and slight persistent parenchymal opacity at the left lung base. Drake Espinal MD Physical Exam This is a well-developed male who is awake and alert and in no acute distress. SKIN: no rash HEENT: Head atraumatic. Extraocular movements grossly intact, pupils reactive to light. No icterus. Oropharynx, moist mucosa. No lesions. LUNGS: Clear breath sounds bilateral which are diminished. HEART: Regular rate and rhythm. No discernible murmur. ABDOMEN: Bowel sounds present, soft, no tenderness appreciated. No hepatosplenomegaly or masses EXTREMITIES: The patient has Charcot's feet bilateral. The left ankle is swollen and is dasining large amount of purosdangious d/c with some chunks of devitalised tissue No odor + ascending cellulitic changes with erythema, edema noted on LLE GIU; no bladder distention NEUROLOGIC: Awake alert. No gross focal findings. Clear speech PSYCHIATRIC: The patient calm and cooperative. LINES: PICC in place RUE w/o e/o infection Assessment & Plan Remarks ISepsis from infected L foot, MSSA on previous admission L foot DFI and chronic osteo given the chronicity of the problem - pt refuses amputation and shows signs of clinical failure This is limb threatening, life threatening infeciton: pt potentioally can develop endocarditis NSTEMI Severe CHF New issue: HIgh grade MRSA sepsis ? either from osteo or line or endcoacritis prognosis for limb salavage is extremely poor, pt is at high risk for sepsis and further infectious coplications e.i. endocarditis, vertebral osteo and other conservative mngmnt with abx alone and/or I+D is not going to be successfull Apparently pt adamantly refuses only availbale treatment in his case (BKA) complete IV cefazoline and oral abx x 8 weeks (cefazoline) thru September 02 dc Levaquine x 6 wks for Acinetobacter coverage thru August 20 Stop cefaolin start vancomycin with cam enrique 15-20 US RUE 2 D echo repeat BC Pt again was told that no cure of his osteo is possible @ this point w/o amputation He undestands and refused once again REMOVE PICC and piut periferal IV dw Dr Tevin Wolf,Coty Spaulding MD Aug 17, 2017 13:14
[2017-08-17] MEDS: ONDANSETRON HCL 4 MG/2 ML VIAL IVP PRN (16:21)
--- NOTE | 2017-08-17 17:36 | PD.ONC.PN ---
Subjective Subjective Remarks Afebrile Reports he has regular brown colored stools Chest pain improved. Objective Data Date Time Temp Pulse Resp B/P (MAP) Pulse Ox O2 Delivery O2 Flow Rate FiO2 08/17/17 17:03 18 08/17/17 16:00 97.3 94 18 134/68 (90) 98 08/17/17 16:00 94 134/68 (90) 08/17/17 12:00 98.7 86 18 120/72 (88) 99 08/17/17 10:37 98 Nasal Cannula 2.00 08/17/17 08:00 97.5 76 18 96/64 (75) 100 08/17/17 04:00 98.1 84 18 103/69 (80) 94 08/17/17 00:10 98.4 91 20 123/72 (89) 98 08/16/17 22:55 88 20 08/16/17 20:00 99.3 94 21 118/65 (82) 98 08/17/17 08/17/17 08/17/17 07:00 15:00 23:00 Intake Total 500 ml Output Total 500 ml Balance 0 ml Result Diagram: 08/17/17 0020 08/16/17 0510 Laboratory Results Laboratory Tests Test 08/17/17 00:20 08/17/17 05:35 08/17/17 09:19 Hemoglobin 8.6 GM/DL Hematocrit 25.5 % Haptoglobin 390 MG/DL Magnesium Level 1.7 MG/DL Lactate Dehydrogenase 193 U/L Vitamin B12 Level 978 PG/ML HIV (1&2) Antibody NEGATIVE Administered Medications Medications (Trade) Dose Ordered Sig/Tri Route PRN Reason Start Time Stop Time Status Last Admin Dose Admin Tamsulosin HCl (Flomax) 0.4 mg HS PO 07/29/17 21:00 08/16/17 21:00 Lisinopril (Prinivil) 2.5 mg DAILY PO 07/30/17 09:00 Future hold 08/17/17 09:06 Sodium Chloride (NS Flush) 2 ml BID IV FLUSH 07/29/17 21:00 08/16/17 21:00 Acetaminophen (Tylenol) 650 mg Q4H PRN PO TEMP > 100.4 OR HEADACHE 07/29/17 20:30 08/17/17 03:05 Ondansetron HCl (Zofran Inj) 4 mg Q6H PRN IVP NAUSEA OR VOMITING 07/29/17 20:30 08/17/17 16:21 Senna/Docusate Sodium (Emelia-Colace) 1 tab BID PO 07/29/17 21:00 08/17/17 09:06 Magnesium Hydroxide (Milk Of Magnesia Liq) 30 ml Q12H PRN PO Mild constipation 07/29/17 20:30 08/02/17 09:33 Lorazepam (Ativan) 0.5 mg Q8H PRN PO SEVERE ANXIETY OR AGITATION 07/29/17 20:30 08/09/17 09:36 Hydromorphone HCl (Dilaudid Pf Inj) 0.5 mg Q4H PRN IV PAIN 6-10 07/29/17 20:45 08/16/17 05:02 Pantoprazole Sodium (Protonix Inj) 40 mg Q24H IV PUSH 07/30/17 21:00 08/16/17 21:00 Oxycodone/ Acetaminophen (Percocet 10-325 Mg) 1 tab Q4H PRN PO PAIN SCALE 1 TO 5 07/29/17 20:30 08/17/17 15:58 Insulin Aspart (NovoLOG SUPPLEMENTAL SCALE) 1 ACHS SLIDING SCALE SQ 07/29/17 21:00 08/17/17 17:13 Sodium Chloride 1,000 ml @ 50 mls/hr Q20H IV 07/30/17 13:15 08/17/17 16:23 Aspirin (Ecotrin Ec) 81 mg DAILY PO 07/31/17 09:00 08/17/17 09:06 Morphine Sulfate (Morphine Inj) 5 mg Q2H PRN IV PUSH CHEST PAIN 07/30/17 14:00 07/30/17 22:03 Lorazepam (Ativan Inj) 0.5 mg Q6H PRN IV ANXIETY 07/31/17 03:15 08/09/17 20:00 Promethazine HCl (Phenergan Inj) 25 mg Q6H PRN IV-CENTRAL NAUSEA 07/31/17 03:15 08/14/17 22:23 Heparin Sodium (Porcine) (Heparin Inj) 5,000 units BID SQ 07/31/17 21:00 08/17/17 09:07 Metoprolol Tartrate (Lopressor) 100 mg Q12H PO 08/03/17 15:00 08/17/17 16:23 Insulin Detemir (Levemir Inj) 15 units DAILY SQ 08/11/17 09:00 08/17/17 09:07 Guaifenesin/ Dextromethorphan (Robitussin Dm 200-20 Mg/10 ml Liq) 10 ml Q6H PRN PO COUGH 08/10/17 20:45 08/17/17 16:10 Promethazine HCl (Phenergan Inj) 12.5 mg Q6H PRN IM NAUSEA OR VOMITING 08/12/17 16:30 08/16/17 21:00 Isosorbide Mononitrate (Imdur) 30 mg DAILY@07 PO 08/16/17 07:00 08/17/17 06:47 Ascorbic Acid (Vitamin C) 1,000 mg DAILY PO 08/17/17 09:00 08/17/17 09:06 Folic Acid (Folate) 1 mg DAILY PO 08/17/17 09:00 08/17/17 09:06 Objective Remarks GENERAL: Older male resting in chair at bedside in no obvious distress SKIN: Warm and dry. HEAD: Normocephalic. EYES: No injection or drainage. NECK: Supple, trachea midline. CARDIOVASCULAR: Regular rate and rhythm without murmurs. RESPIRATORY: Clear posteriorly. Breathing unlabored at rest. GASTROINTESTINAL: Abdomen soft, non-tender, nondistended. EXTREMITIES: Left leg wrapped in a boot NEUROLOGICAL: No obvious focal deficit. Awake, alert, and oriented x3. . Assessment/Plan Problem List: (1) Anemia ICD Codes: D64.9 - Anemia, unspecified Plan: -- Likely microcytic anemia -- Stool Hemoccult pending -- Iron sucrose ordered -- Patient had EGD that showed reflux esophagitis -- Status post 4 units packed red blood cells this admission -- Chronic kidney disease contributing (2) Elevated troponin ICD Codes: R74.8 - Abnormal levels of other serum enzymes Plan: -- Cardiology following Assessment 57 y/o male with multiple comorbidities who has received multiple transfusions this admission with severe microcytic anemia Plan 1. Monitor CBC 2. Give iron sucrose 3 doses 3. Await Hemoccult stool Discussed with RN Attending Statement The exam, history, and the medical decision-making described in the above note were completed with the assistance of the mid-level provider. I reviewed and agree with the findings presented. I attest that I had a [id number] encounter with the patient on the same day, and personally performed and documented my assessment and findings in the medical record. tolerating iron infusions epogen injection once iron is replaced Problem Qualifiers (1) Anemia: Natalie Mobley Aug 17, 2017 17:36 Jarred Lee MD Aug 17, 2017 21:27
--- NOTE | 2017-08-17 20:32 | RADRPT ---
EXAM DATE/TIME: 08/17/2017 19:35 [facility] COMPARISON: No previous studies available for comparison. INDICATIONS : Right arm swelling. MEDICAL HISTORY : Hypertension. Glasses. Coronary artery disease. Dyspnea. Diabetes. MRSA. SURGICAL HISTORY : Tonsillectomy. Appendectomy. Coronary artery stent. Adenoidectomy. Hernia repair. Toe amputation. ENCOUNTER: Initial ACUITY: 1 day PAIN SCORE: 0/10 LOCATION: Right arm. FINDINGS: There is nonocclusive thrombus in the right basilic vein. Cephalic vein is not visualized proximally. Internal jugular vein, subclavian vein, axillary vein brachial vein are patent. CONCLUSION: 1. Nonocclusive thrombus in the right basilic vein. No other venous thrombosis identified. Jesus Lama MD on August 17, 2017 at 20:30 Board Certified Radiologist. This report was verified electronically.
[2017-08-17] MEDS: PANTOPRAZOLE SODIUM 40 MG VIAL IV PUSH SCH (20:52)
[2017-08-17] MEDS: TAMSULOSIN HCL 0.4 MG CAP PO SCH (20:53)
[2017-08-18] VITALS (11 sets, daily range): BP systolic 106–136; BP diastolic 57–88; PULSE 76–94; RESP 14–22; TEMP 97.1–98.1; O2SAT 96–100
[2017-08-18] MEDS: METOPROLOL TARTRATE 100 MG TAB PO SCH ×2 (01:28→15:56)
[2017-08-18] MEDS: guaiFENesin/DEXTROMETHORPHAN 200 MG/20 MG/10 ML CUP PO PRN ×3 (01:29→21:29)
[2017-08-18] MEDS: oxyCODONE/ACETAMINOPHEN 10 MG/325 MG TAB PO PRN ×5 (02:42→21:30)
[2017-08-18] MEDS: ONDANSETRON HCL 4 MG/2 ML VIAL IVP PRN ×2 (02:55→21:36)
[2017-08-18] MEDS: SODIUM CHLOR 0.9% 1000 ML INJ 1,000 ML IV SCH (03:37)
[2017-08-18 06:55] LABS: CREATININE 1.29 MG/DL (0.60-1.30)
[2017-08-18] MEDS: ISOSORBIDE MONONITRATE 30 MG CR TAB (IMDUR) PO SCH (07:00)
[2017-08-18 07:11] LABS: AUTOMATED NEUTROPHIL # 3.8 TH/MM3 (1.8-7.7); BASOPHIL % 0.6 % (0.0-2.0); EOSINOPHIL # 0.3 TH/MM3 (0-0.4); EOSINOPHIL % 4.9 % (0.0-4.0); HEMATOCRIT 25.4 % (39.0-51.0); HEMOGLOBIN 8.6 GM/DL (13.0-17.0); LYMPH % 22.4 % (9.0-44.0); LYMPHOCYTE # 1.4 TH/MM3 (1.0-4.8); MEAN CELL VOLUME 75.3 FL (80.0-100.0); MEAN CORPUSCULAR HEMOGLOBIN 25.4 PG (27.0-34.0); MEAN CORPUSCULAR HGB CONC 33.8 % (32.0-36.0); MEAN PLATELET VOLUME 7.2 FL (7.0-11.0); MONO % 11.1 % (0.0-8.0); MONOCYTE # 0.7 TH/MM3 (0-0.9); PLATELET COUNT 262 TH/MM3 (150-450); RED BLOOD COUNT 3.37 MIL/MM3 (4.50-5.90); RED CELL DISTRIBUTION WIDTH 22.4 % (11.6-17.2); WHITE BLOOD COUNT 6.2 TH/MM3 (4.0-11.0)
[2017-08-18] MEDS: INSULIN ASPART SUPPLEMENTAL SCALE SQ SCH ×4 (08:00→21:13)
[2017-08-18] MEDS: DOCUSATE SODIUM 50 MG/SENNA 8.6 MG TAB PO SCH ×2 (08:45→21:16)
[2017-08-18] MEDS: SODIUM CHLORIDE 0.9% FLUSH 10 ML FLUSH IV FLUSH SCH ×2 (08:45→21:16)
[2017-08-18] MEDS: IRON SUCROSE INJ 200 MG in SODIUM CHLORIDE 0.9% INJ 100 ML IV SCH (08:45)
[2017-08-18] MEDS: ASPIRIN EC 81 MG TABEC PO SCH (08:46)
[2017-08-18] MEDS: HEPARIN SODIUM - SQ 10,000 UNITS/ML VIAL SQ SCH ×2 (08:46→21:16)
[2017-08-18] MEDS: FOLIC ACID 1 MG TAB PO SCH (08:46)
[2017-08-18] MEDS: ASCORBIC ACID 500 MG TAB PO SCH (08:46)
[2017-08-18] MEDS: LISINOPRIL 5 MG TAB PO SCH (08:46)
[2017-08-18] MEDS: INSULIN DETEMIR 100 UNITS/ML VIAL SQ SCH (08:47)
--- NOTE | 2017-08-18 09:37 | HHI.FPPN ---
Subjective Remarks C/O WEAKNESS C/O PAIN D/W TRANSFER D/W RN Objective Vitals Vital Signs Date Time Temp Pulse Resp B/P (MAP) Pulse Ox O2 Delivery O2 Flow Rate FiO2 08/18/17 08:40 18 08/18/17 08:08 97.5 89 22 131/77 (95) 96 08/18/17 04:00 78 08/18/17 04:00 98.1 82 16 120/74 (89) 96 08/18/17 04:00 Nasal Cannula 4.00 08/18/17 00:00 76 08/17/17 23:58 98.3 79 16 95/52 (66) 95 08/17/17 20:30 98.5 85 16 110/68 (82) 96 08/17/17 20:15 Nasal Cannula 4.00 08/17/17 20:00 79 08/17/17 18:49 98 Nasal Cannula 4.00 08/17/17 16:00 97.3 94 18 134/68 (90) 98 08/17/17 16:00 94 134/68 (90) 08/17/17 12:00 98.7 86 18 120/72 (88) 99 08/17/17 10:37 98 Nasal Cannula 2.00 I/O 08/17/17 08/17/17 08/17/17 08/18/17 08/18/17 08/18/17 07:00 15:00 23:00 07:00 15:00 23:00 Intake Total 500 ml 480 ml 1239 ml Output Total 500 ml 400 ml 0 ml Balance 0 ml 80 ml 1239 ml Intake Oral 500 ml 480 ml 240 ml IV Total 999 ml Output Urine Total 500 ml 400 ml 0 ml # Bowel Movements 0 Result Diagram: 08/18/1728 08/18/17527 Objective Remarks GENERAL: SKIN: Warm and dry. large ulcerations LLE HEAD: Atraumatic. Normocephalic. EYES: Pupils equal and round. No scleral icterus. No injection or drainage. ENT: No nasal bleeding or discharge. Mucous membranes pink and moist. ngt c/d/ i NECK: Trachea midline. No JVD. CARDIOVASCULAR: Regular rate and rhythm. RESPIRATORY: r ronhci and crackles, harsh cough GASTROINTESTINAL: Abdomen soft, non-tender, nondistended. Hepatic and splenic margins not palpable. MUSCULOSKELETAL: Extremities without clubbing, cyanosis, or edema. No obvious deformities. NEUROLOGICAL: Awake and alert. No obvious cranial nerve deficits. Motor grossly within normal limits. 1 out of 5 muscle strength in the arms and legs. Normal speech. PSYCHIATRIC: Appropriate mood and affect; insight and judgment normal. A/P Assessment and Plan Assessment and Plan- 57-year-old male admitted secondary to NSTEMI with left lower extremity osteomyelitis MRSA SEPSIS: SEE ID NOTE Vomiting- egd- Reflux esophagitis Possible Mock's esophagus Non-ST elevation [place]- oxygen Cardiology following, -medical management Diabetic ulcers Left lower extremity foot infection Septic arthritis left lower extremity Continue IV abx PT denies any further ceftin as he reports vomiting due to ceftin ID following Follow CBC Podiatry following Patient has had multiple recommendations for amputation of the left lower extremity. He has been refusing to do this. Vascular surgery consultation done, pt refused amputation as noted again. DM: UNCONTROLLED, SOME HYPOGLYCEMIA, CONTINUE INSULIN, Bronchitis: duonebs qid Iron defic anemia, chronic dz, renal dz: heme onc workup, iv iron, Chronic kidney disease stage III Monitor renal function Atrial fibrillation Follow on telemetry Hypertension Continue baseline treatment Follow blood pressures Adjust treatments as needed DVT prophylaxis Heparin dispo: pt requests transfer to [facility] so he can make his mandatory court appearance 08/31/17, reconsulted Arthur Griffin MD Aug 18, 2017 09:37
--- NOTE | 2017-08-18 17:22 | ECHRPT ---
Indication: VEGETATIONS CONCLUSIONS Mildly dilated left ventricle. Wall thickness is normal. The left ventricular systolic function is severely reduced with an estimated ejection fraction of 20 %. There is diffuse global hypokinesis. The left atrial size is akltgttc-ci-aawblhlf dilated. The right atrial size is moderately dilated. Mild mitral valve regurgitation. Mild aortic valve regurgitation. Aortic valve sclerosis is present. There is moderate tricuspid regurgitation. Trivial pulmonary valve regurgitation. The inferior vena cava is dilated. BP: 120 / 72 HR: 86 Rhythm: Sinus MEASUREMENTS (Male / Female) Normal Values Technical Quality:Fair 2D ECHO LV Diastolic Diameter PLAX 6.3 cm 4.2 - 5.9 / 3.9 - 5.3 cm LV Systolic Diameter PLAX 6.1 cm IVS Diastolic Thickness 0.7 cm 0.6 - 1.0 / 0.6 - 0.9 cm LVPW Diastolic Thickness 0.9 cm 0.6 - 1.0 / 0.6 - 0.9 cm LV Relative Wall Thickness 0.3 RV Internal Dim ED PLAX 3.5 cm LVOT Diameter 1.9 cm Aortic Root Diameter 3.0 cm LA Systolic Diameter LX 5.4 cm 3.0 - 4.0 / 2.7 - 3.8 cm M-MODE AV Cusp Separation MM 2.6 cm DOPPLER AV Peak Velocity 127.0 cm/s AV Peak Gradient 6.5 mmHg AV Mean Gradient 4.0 mmHg AV Velocity Time Integral 24.4 cm LVOT Peak Velocity 69.3 cm/s LVOT Peak Gradient 1.9 mmHg LVOT Velocity Time Integral 13.0 cm AV Area Cont Eq vti 1.5 cm AV Area Cont Eq pk 1.5 cm Mitral E Point Velocity 74.0 cm/s Mitral A Point Velocity 32.5 cm/s Mitral E to A Ratio 2.3 LV E' Lateral Velocity 9.3 cm/s Mitral E to LV E' Lateral Ratio 8.0 LV E' Septal Velocity 5.0 cm/s Mitral E to LV E' Septal Ratio 14.9 TR Peak Velocity 327.0 cm/s TR Peak Gradient 42.8 mmHg Right Atrial Pressure 10.0 mmHg Pulmonary Artery Systolic Pressu 52.8 mmHg Right Ventricular Systolic Press 52.8 mmHg PV Peak Velocity 45.9 cm/s PV Peak Gradient 0.8 mmHg FINDINGS LEFT VENTRICLE Mildly dilated left ventricle. Wall thickness is normal. The left ventricular systolic function is severely reduced with an estimated ejection fraction of 20 %. There is diffuse global hypokinesis with distinct regional wall motion abnormalities. RIGHT VENTRICLE Normal right ventricular size and systolic function. LEFT ATRIUM The left atrial size is mgcmuycb-nu-yvhqzfyg dilated. RIGHT ATRIUM The right atrial size is moderately dilated. ATRIAL SEPTUM No atrial level shunt is demonstrated by color flow Doppler interrogation. AORTA The aortic root and proximal ascending aorta are normal in size on limited imaging. MITRAL VALVE Mild mitral valve regurgitation. AORTIC VALVE Mild aortic valve regurgitation. Aortic valve sclerosis is present. TRICUSPID VALVE There is moderate tricuspid regurgitation. PULMONARY VALVE Trivial pulmonary valve regurgitation. VESSELS The inferior vena cava is dilated. There is less than 50% respiratory change in dimension of the inferior vena cava (abnormal). Tika Tucker MD, FACC (Electronically Signed) Final Date:18 August 2017 17:21
--- NOTE | 2017-08-18 18:02 | HHI.IDPN ---
Subjective Subjective Remarks More + blood clx, GPC in clusters 2 D echo done US of RUE + for non ocllusive thrombosis PICC is removed Antibiotics vancomycin Lines PICC Allergies: Coded Allergies: codeine (Verified Allergy, Severe, Cardiac arrest, 07/29/17) PT REPORT HIS HEART STOP AFTER Objective . Vital Signs Date Time Temp Pulse Resp B/P (MAP) Pulse Ox O2 Delivery O2 Flow Rate FiO2 08/18/17 17:31 98 Nasal Cannula 4.00 08/18/17 16:00 97.4 81 14 128/78 (95) 98 08/18/17 15:49 97.4 89 20 128/78 (95) 08/18/17 14:33 18 08/18/17 12:17 100 Nasal Cannula 4.00 08/18/17 12:08 98.1 80 22 106/57 (73) 97 08/18/17 11:08 96 Nasal Cannula 4.00 08/18/17 08:08 97.5 89 22 131/77 (95) 96 08/18/17 08:00 84 08/18/17 04:00 78 08/18/17 04:00 98.1 82 16 120/74 (89) 96 08/18/17 04:00 Nasal Cannula 4.00 08/18/17 00:00 76 08/17/17 23:58 98.3 79 16 95/52 (66) 95 08/17/17 20:30 98.5 85 16 110/68 (82) 96 08/17/17 20:15 Nasal Cannula 4.00 08/17/17 20:00 79 08/17/17 18:49 98 Nasal Cannula 4.00 08/18/17 08/18/17 08/19/17 15:00 23:00 07:00 Intake Total 100 ml Output Total 300 ml Balance -200 ml IV Total 100 ml Output Urine Total 300 ml . Laboratory Tests Test 08/17/17 00:20 08/17/17 05:35 08/18/17 05:28 Hemoglobin 8.6 GM/DL 8.6 GM/DL Hematocrit 25.5 % 25.4 % Haptoglobin 390 MG/DL White Blood Count 6.2 TH/MM3 Red Blood Count 3.37 MIL/MM3 Mean Corpuscular Volume 75.3 FL Mean Corpuscular Hemoglobin 25.4 PG Mean Corpuscular Hemoglobin Concent 33.8 % Red Cell Distribution Width 22.4 % Platelet Count 262 TH/MM3 Mean Platelet Volume 7.2 FL Neutrophils (%) (Auto) 61.0 % Lymphocytes (%) (Auto) 22.4 % Monocytes (%) (Auto) 11.1 % Eosinophils (%) (Auto) 4.9 % Basophils (%) (Auto) 0.6 % Neutrophils # (Auto) 3.8 TH/MM3 Lymphocytes # (Auto) 1.4 TH/MM3 Monocytes # (Auto) 0.7 TH/MM3 Eosinophils # (Auto) 0.3 TH/MM3 Basophils # (Auto) 0.0 TH/MM3 CBC Comment DIFF FINAL Differential Comment Laboratory Tests Test 08/17/17 05:35 08/17/17 09:19 08/18/17 05:28 Magnesium Level 1.7 MG/DL Lactate Dehydrogenase 193 U/L Vitamin B12 Level 978 PG/ML Creatinine 1.29 MG/DL Estimat Glomerular Filtration Rate 57 ML/MIN Microbiology Date/Time Source Procedure Growth Status 08/17/17 16:55 Blood Peripheral Aerobic Blood Culture - Preliminary Gram Positive Cocci Resulted 08/17/17 16:55 Blood Peripheral Anaerobic Blood Culture - Preliminary NO GROWTH IN 1 DAY Resulted 08/17/17 16:40 Blood Peripheral Aerobic Blood Culture - Preliminary NO GROWTH IN 1 DAY Resulted 08/17/17 16:40 Blood Peripheral Anaerobic Blood Culture - Preliminary NO GROWTH IN 1 DAY Resulted Imaging Last Impressions Abdomen/Pelvis CT 08/01/17 0000 Signed Impressions: Service Date/Time: Tuesday, August 01, 2017 14:04 - CONCLUSION: 1. No dilated loops of small or large bowel. 2. Nonobstructing 4 mm calcified stone upper pole right kidney. 3. Cystic lesion upper pole left kidney with thin rim calcification; Bosniak 2 lesion should be followed with next examination in 6- 9 months. 4. Bilateral pleural effusions, right greater than left and multifocal areas of consolidation in the lower right lung. Davin Willett MD Liver Ultrasound 07/31/17 0000 Signed Impressions: Service Date/Time: Monday, July 31, 2017 15:35 - CONCLUSION: 1. Limited examination due to extensive bowel gas and patient's inability to cooperate with the exam. 2. Liver is slightly prominent with increased echogenicity suggesting some degree of fatty infiltration. 3. Ascites. Bilateral pleural effusions. Chau Silvestre MD Abdomen X-Ray 07/30/17 0000 Signed Impressions: Service Date/Time: July 14:48 - CONCLUSION: No bowel obstruction, ileus or free air. Degenerative changes and scoliosis of the thoracolumbar spine. Nixon Garcia MD Chest X-Ray 07/29/17 1710 Signed Impressions: Service Date/Time: Saturday, July 29, 2017 17:43 - CONCLUSION: Small bilateral effusions and slight persistent parenchymal opacity at the left lung base. Drake Espinal MD Physical Exam This is a well-developed male who is awake and alert and in no acute distress. SKIN: no rash HEENT: Head atraumatic. Extraocular movements grossly intact, pupils reactive to light. No icterus. Oropharynx, moist mucosa. No lesions. LUNGS: Clear breath sounds bilateral which are diminished. HEART: Regular rate and rhythm. No discernible murmur. ABDOMEN: Bowel sounds present, soft, no tenderness appreciated. No hepatosplenomegaly or masses EXTREMITIES: T dressing in place L foot GIU; no bladder distention NEUROLOGIC: Awake alert. No gross focal findings. Clear speech PSYCHIATRIC: The patient calm and cooperative. LINES: PICC in place RUE w/o e/o infection Assessment & Plan Remarks ISepsis from infected L foot, MSSA on previous admission L foot DFI and chronic osteo given the chronicity of the problem - pt refuses amputation and shows signs of clinical failure This is limb threatening, life threatening infeciton: pt potentioally can develop endocarditis NSTEMI Severe CHF New issue: HIgh grade MRSA sepsis ? either from osteo or line or endcocardtis RUE US + for thrombosis 2 D echo negative prognosis for limb salavage is extremely poor, pt is at high risk for sepsis and further infectious coplications e.i. endocarditis, vertebral osteo and other conservative mngmnt with abx alone and/or I+D is not going to be successfull Apparently pt adamantly refuses only availbale treatment in his case (BKA) complete IV cefazoline and oral abx x 8 weeks (cefazoline) thru September 02 dc Levaquine x 6 wks for Acinetobacter coverage thru August 20 cont t vancomycin with taget tropgh 15-20 repeat BC prior to new PICC placement to ensure sterility REMOVE PICC and piut periferal IV Coty Wolf MD Aug 18, 2017 18:02
[2017-08-18] MEDS: PANTOPRAZOLE SODIUM 40 MG VIAL IV PUSH SCH (21:15)
[2017-08-18] MEDS: TAMSULOSIN HCL 0.4 MG CAP PO SCH (21:17)
[2017-08-18] MEDS: VANCOMYCIN INJ 1,750 MG in SODIUM CHLORID 0.9% 500 ML INJ 500 ML IV SCH (21:36)
[2017-08-18] MEDS: ACETAMINOPHEN 325 MG TAB PO PRN (23:15)
[2017-08-19] VITALS (14 sets, daily range): BP systolic 95–131; BP diastolic 63–78; PULSE 65–92; RESP 14–19; TEMP 97.3–98.7; O2SAT 96–100
[2017-08-19] MEDS: guaiFENesin/DEXTROMETHORPHAN 200 MG/20 MG/10 ML CUP PO PRN ×3 (03:22→22:44)
[2017-08-19] MEDS: METOPROLOL TARTRATE 100 MG TAB PO SCH ×2 (03:23→13:24)
[2017-08-19] MEDS: oxyCODONE/ACETAMINOPHEN 10 MG/325 MG TAB PO PRN ×5 (03:23→22:00)
[2017-08-19] MEDS: ISOSORBIDE MONONITRATE 30 MG CR TAB (IMDUR) PO SCH (06:25)
[2017-08-19] MEDS: SODIUM CHLOR 0.9% 1000 ML INJ 1,000 ML IV SCH (06:25)
[2017-08-19] MEDS: INSULIN ASPART SUPPLEMENTAL SCALE SQ SCH ×4 (07:46→21:00)
[2017-08-19 07:48] LABS: HEMOGLOBIN 8.7 GM/DL (13.0-17.0); MEAN CORPUSCULAR HEMOGLOBIN 25.2 PG (27.0-34.0); MEAN CORPUSCULAR HGB CONC 33.6 % (32.0-36.0); MEAN PLATELET VOLUME 7.2 FL (7.0-11.0); PLATELET COUNT 335 TH/MM3 (150-450); RED BLOOD COUNT 3.46 MIL/MM3 (4.50-5.90); RED CELL DISTRIBUTION WIDTH 22.7 % (11.6-17.2); WHITE BLOOD COUNT 7.3 TH/MM3 (4.0-11.0)
[2017-08-19] MEDS: ASCORBIC ACID 500 MG TAB PO SCH (08:59)
[2017-08-19] MEDS: ASPIRIN EC 81 MG TABEC PO SCH (08:59)
[2017-08-19] MEDS: FOLIC ACID 1 MG TAB PO SCH (08:59)
[2017-08-19] MEDS: DOCUSATE SODIUM 50 MG/SENNA 8.6 MG TAB PO SCH ×2 (09:00→21:59)
[2017-08-19] MEDS: INSULIN DETEMIR 100 UNITS/ML VIAL SQ SCH (09:00)
[2017-08-19] MEDS: HEPARIN SODIUM - SQ 10,000 UNITS/ML VIAL SQ SCH ×2 (09:00→21:59)
[2017-08-19] MEDS: LISINOPRIL 5 MG TAB PO SCH (09:00)
[2017-08-19] MEDS: SODIUM CHLORIDE 0.9% FLUSH 10 ML FLUSH IV FLUSH SCH ×2 (09:01→22:00)
[2017-08-19] MEDS: IRON SUCROSE INJ 200 MG in SODIUM CHLORIDE 0.9% INJ 100 ML IV SCH (09:02)
[2017-08-19] MEDS: ONDANSETRON HCL 4 MG/2 ML VIAL IVP PRN ×2 (09:29→22:44)
--- NOTE | 2017-08-19 09:42 | HHI.FPPN ---
Objective Vitals Vital Signs Date Time Temp Pulse Resp B/P (MAP) Pulse Ox O2 Delivery O2 Flow Rate FiO2 08/19/17 08:09 97.4 74 18 116/71 (86) 96 08/19/17 06:26 95/63 (74) 08/19/17 03:46 75 08/19/17 03:25 81 18 131/78 (95) 99 08/19/17 00:47 98.3 88 14 107/66 (80) 99 08/19/17 00:00 84 08/18/17 21:02 Nasal Cannula 3.00 08/18/17 20:00 97.1 92 16 136/88 (104) 99 08/18/17 20:00 86 08/18/17 19:14 18 08/18/17 17:31 98 Nasal Cannula 4.00 08/18/17 16:00 94 08/18/17 16:00 97.4 81 14 128/78 (95) 98 08/18/17 15:49 97.4 89 20 128/78 (95) 08/18/17 12:17 100 Nasal Cannula 4.00 08/18/17 12:08 98.1 80 22 106/57 (73) 97 08/18/17 12:00 83 08/18/17 11:08 96 Nasal Cannula 4.00 I/O 08/18/17 08/18/17 08/18/17 08/19/17 08/19/17 08/19/17 06:59 14:59 22:59 06:59 14:59 22:59 Intake Total 1239 ml 100 ml 630 ml Output Total 0 ml 300 ml 2300 ml 600 ml Balance 1239 ml -200 ml -1670 ml -600 ml Intake Oral 240 ml 630 ml IV Total 999 ml 100 ml Output Urine Total 0 ml 300 ml 2300 ml 600 ml # Voids 2 # Bowel Movements 0 1 Result Diagram: 08/19/1762608/18/17527 Objective Remarks GENERAL: SKIN: Warm and dry. large ulcerations LLE HEAD: Atraumatic. Normocephalic. EYES: Pupils equal and round. No scleral icterus. No injection or drainage. ENT: No nasal bleeding or discharge. Mucous membranes pink and moist. ngt c/d/ i NECK: Trachea midline. No JVD. CARDIOVASCULAR: Regular rate and rhythm. RESPIRATORY: r ronhci and crackles, harsh cough GASTROINTESTINAL: Abdomen soft, non-tender, nondistended. Hepatic and splenic margins not palpable. MUSCULOSKELETAL: Extremities without clubbing, cyanosis, or edema. No obvious deformities. NEUROLOGICAL: Awake and alert. No obvious cranial nerve deficits. Motor grossly within normal limits. 1 out of 5 muscle strength in the arms and legs. Normal speech. PSYCHIATRIC: Appropriate mood and affect; insight and judgment normal. A/P Assessment and Plan Assessment and Plan- 57-year-old male admitted secondary to NSTEMI with left lower extremity osteomyelitis MRSA SEPSIS: neg echo, only option is amputation of LLE & patient again refused today, Basilic SVT Vomiting- egd- Reflux esophagitis Possible Mock's esophagus Non-ST elevation MD- oxygen Cardiology following, -medical management Diabetic ulcers Left lower extremity foot infection Septic arthritis left lower extremity Continue IV abx ID following Follow CBC Podiatry following DM: UNCONTROLLED, SOME HYPOGLYCEMIA, CONTINUE INSULIN, Bronchitis: duonebs qid Iron defic anemia, chronic dz, renal dz: heme onc workup, iv iron, Chronic kidney disease stage III Monitor renal function Atrial fibrillation Follow on telemetry Hypertension Continue baseline treatment Follow blood pressures Adjust treatments as needed DVT prophylaxis Heparin dispo: pt requests transfer to [facility] so he can make his mandatory court appearance 08/31/17, reconsulted Arthur Griffin MD Aug 19, 2017 09:42
[2017-08-19] MEDS: ACETAMINOPHEN 325 MG TAB PO PRN (12:19)
[2017-08-19] MEDS: VANCOMYCIN INJ 1,750 MG in SODIUM CHLORID 0.9% 500 ML INJ 500 ML IV SCH (21:59)
[2017-08-19] MEDS: PANTOPRAZOLE SODIUM 40 MG VIAL IV PUSH SCH (21:59)
[2017-08-19] MEDS: TAMSULOSIN HCL 0.4 MG CAP PO SCH (21:59)
[2017-08-20] VITALS (11 sets, daily range): BP systolic 112–120; BP diastolic 63–71; PULSE 76–99; RESP 18–20; TEMP 97.3–98.5; O2SAT 96–99
[2017-08-20] MEDS: SODIUM CHLOR 0.9% 1000 ML INJ 1,000 ML IV SCH ×2 (02:27→21:59)
[2017-08-20] MEDS: METOPROLOL TARTRATE 100 MG TAB PO SCH ×2 (02:59→12:47)
[2017-08-20] MEDS: oxyCODONE/ACETAMINOPHEN 10 MG/325 MG TAB PO PRN ×5 (02:59→21:58)
[2017-08-20] MEDS: ISOSORBIDE MONONITRATE 30 MG CR TAB (IMDUR) PO SCH (06:58)
[2017-08-20] MEDS: guaiFENesin/DEXTROMETHORPHAN 200 MG/20 MG/10 ML CUP PO PRN ×2 (06:58→23:29)
[2017-08-20 07:31] LABS: CREATININE 0.95 MG/DL (0.60-1.30)
[2017-08-20] MEDS: INSULIN ASPART SUPPLEMENTAL SCALE SQ SCH ×4 (08:00→21:00)
[2017-08-20] MEDS: HEPARIN SODIUM - SQ 10,000 UNITS/ML VIAL SQ SCH ×3 (08:26→21:59)
[2017-08-20] MEDS: INSULIN DETEMIR 100 UNITS/ML VIAL SQ SCH (08:29)
[2017-08-20] MEDS: ASPIRIN EC 81 MG TABEC PO SCH (08:29)
[2017-08-20] MEDS: DOCUSATE SODIUM 50 MG/SENNA 8.6 MG TAB PO SCH ×2 (08:29→21:00)
[2017-08-20] MEDS: FOLIC ACID 1 MG TAB PO SCH (08:29)
[2017-08-20] MEDS: ASCORBIC ACID 500 MG TAB PO SCH (08:29)
[2017-08-20] MEDS: LISINOPRIL 5 MG TAB PO SCH (08:30)
[2017-08-20] MEDS: SODIUM CHLORIDE 0.9% FLUSH 10 ML FLUSH IV FLUSH SCH ×2 (08:30→22:00)
--- NOTE | 2017-08-20 15:05 | HHI.FPPN ---
Subjective Remarks pt states he would like to have a family member transport him to [place] and go to the Hospital there. He adds that it is obviously impossible due to the logistics... d/w CM d/w RN Objective Vitals Vital Signs Date Time Temp Pulse Resp B/P (MAP) Pulse Ox O2 Delivery O2 Flow Rate FiO2 08/20/17 12:09 97.5 78 18 113/63 (80) 99 08/20/17 12:00 76 08/20/17 09:32 90 08/20/17 09:31 Room Air 08/20/17 08:09 97.3 79 18 112/63 (79) 96 08/20/17 04:12 98.5 88 18 117/71 (86) 96 08/20/17 04:00 85 08/20/17 00:00 99 08/19/17 23:25 98.7 87 18 115/65 (82) 98 08/19/17 20:30 97 Room Air 08/19/17 20:30 83 08/19/17 20:23 97 Nasal Cannula 3.00 08/19/17 16:08 92 I/O 08/19/17 08/19/17 08/19/17 08/20/17 08/20/17 08/20/17 07:00 15:00 23:00 07:00 15:00 23:00 Intake Total 110 ml 840 ml 440 ml Output Total 600 ml 300 ml 900 ml Balance -600 ml 110 ml 540 ml -460 ml Intake Oral 840 ml 440 ml IV Total 110 ml Output Urine Total 600 ml 300 ml 900 ml # Voids 2 # Bowel Movements 0 0 Result Diagram: 08/19/17 0627 08/20/17 0610 Objective Remarks GENERAL: SKIN: Warm and dry. large ulcerations LLE HEAD: Atraumatic. Normocephalic. EYES: Pupils equal and round. No scleral icterus. No injection or drainage. ENT: No nasal bleeding or discharge. Mucous membranes pink and moist. ngt c/d/ i NECK: Trachea midline. No JVD. CARDIOVASCULAR: Regular rate and rhythm. RESPIRATORY: r ronhci and crackles, harsh cough GASTROINTESTINAL: Abdomen soft, non-tender, nondistended. Hepatic and splenic margins not palpable. MUSCULOSKELETAL: Extremities without clubbing, cyanosis, or edema. No obvious deformities. NEUROLOGICAL: Awake and alert. No obvious cranial nerve deficits. Motor grossly within normal limits. 1 out of 5 muscle strength in the arms and legs. Normal speech. PSYCHIATRIC: Appropriate mood and affect; insight and judgment normal. Medications and IVs Current Medications Medications (Trade) Dose Ordered Sig/Tri Route Start Time Stop Time Status Last Admin (Flomax) 0.4 mg HS PO 07/29/17 21:00 08/19/17 21:59 (Prinivil) 2.5 mg DAILY PO 07/30/17 09:00 Future hold 08/19/17 09:00 (Pill Splitter) 1 ea UNSCH PRN OTHER 07/29/17 20:30 (NS Flush) 2 ml UNSCH PRN IV FLUSH 07/29/17 20:30 (NS Flush) 2 ml BID IV FLUSH 07/29/17 21:00 08/20/17 08:30 (Tylenol) 650 mg Q4H PRN PO 07/29/17 20:30 08/19/17 12:19 (Zofran Inj) 4 mg Q6H PRN IVP 07/29/17 20:30 08/19/17 22:44 (Restoril) 15 mg HS PRN PO 07/29/17 20:30 (Narcan Inj) 0.4 mg UNSCH PRN IV PUSH 07/29/17 20:30 (Emelia-Colace) 1 tab BID PO 07/29/17 21:00 08/20/17 08:29 (Milk Of Magnesia Liq) 30 ml Q12H PRN PO 07/29/17 20:30 08/02/17 09:33 (Senokot) 17.2 mg Q12H PRN PO 07/29/17 20:30 (Dulcolax Supp) 10 mg DAILY PRN RECTAL 07/29/17 20:30 (Lactulose Liq) 30 ml DAILY PRN PO 07/29/17 20:30 (Ativan) 0.5 mg Q8H PRN PO 07/29/17 20:30 08/09/17 09:36 (Catapres) 0.1 mg Q6H PRN PO 07/29/17 20:30 (Dilaudid Pf Inj) 0.5 mg Q4H PRN IV 07/29/17 20:45 08/16/17 05:02 (Protonix Inj) 40 mg Q24H IV PUSH 07/30/17 21:00 08/19/17 21:59 (Percocet 10-325 Mg) 1 tab Q4H PRN PO 07/29/17 20:30 08/20/17 12:45 (D50w (Vial) Inj) 50 ml UNSCH PRN IV PUSH 07/29/17 20:45 (Glucagon Inj) 1 mg UNSCH PRN OTHER 07/29/17 20:45 (NovoLOG SUPPLEMENTAL SCALE) 1 ACHS SLIDING SCALE SQ 07/29/17 21:00 08/20/17 12:00 Sodium Chloride 1,000 ml @ 50 mls/hr Q20H IV 07/30/17 13:15 08/18/17 03:37 (Ecotrin Ec) 81 mg DAILY PO 07/31/17 09:00 08/20/17 08:29 (Morphine Inj) 5 mg Q2H PRN IV PUSH 07/30/17 14:00 07/30/17 22:03 (Ativan Inj) 0.5 mg Q6H PRN IV 07/31/17 03:15 08/09/17 20:00 (Phenergan Inj) 25 mg Q6H PRN IV-CENTRAL 07/31/17 03:15 08/14/17 22:23 (Heparin Inj) 5,000 units BID SQ 07/31/17 21:00 08/19/17 21:59 (Lopressor) 100 mg Q12H PO 08/03/17 15:00 08/20/17 02:59 (Levemir Inj) 15 units DAILY SQ 08/11/17 09:00 08/20/17 08:29 (Robitussin Dm 200-20 Mg/10 ml Liq) 10 ml Q6H PRN PO 08/10/17 20:45 08/20/17 06:58 (Compazine Inj) 10 mg Q4H PRN IM 08/12/17 14:30 (Phenergan Inj) 12.5 mg Q6H PRN IM 08/12/17 16:30 08/16/17 21:00 (Imdur) 30 mg DAILY@07 PO 08/16/17 07:00 08/20/17 06:58 Pharmacy Profile Note 0 ml @ 0 mls/hr UNSCH OTHER 08/15/17 18:45 (Vitamin C) 1,000 mg DAILY PO 08/17/17 09:00 08/20/17 08:29 (Folate) 1 mg DAILY PO 08/17/17 09:00 08/20/17 08:29 Vancomycin HCl 1750 mg/Sodium Chloride 517.5 ml @ 250 mls/hr Q24H IV 08/18/17 21:00 08/19/17 21:59 Miscellaneous Information SPECIFIC LAB TO BE DRAWN:VANCO TROUGH DATE... ONCE ONCE .XX 08/21/17 20:45 08/21/17 20:46 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 Non-ST elevation [place]- oxygen Cardiology following, -medical management Diabetic ulcers Left lower extremity foot infection Septic arthritis left lower extremity Continue IV abx ID following Follow CBC Podiatry following DM: UNCONTROLLED, SOME HYPOGLYCEMIA, CONTINUE INSULIN, Bronchitis: duonebs qid Iron defic anemia, chronic dz, renal dz: heme onc workup, iv iron, Chronic kidney disease stage III Monitor renal function Atrial fibrillation Follow on telemetry Hypertension Continue baseline treatment Follow blood pressures Adjust treatments as needed DVT prophylaxis Heparin dispo: PT after discharge Arthur Cortez MD Aug 20, 2017 15:05
[2017-08-20] MEDS: TAMSULOSIN HCL 0.4 MG CAP PO SCH (21:59)
[2017-08-20] MEDS: PANTOPRAZOLE SODIUM 40 MG VIAL IV PUSH SCH (21:59)
[2017-08-20] MEDS: VANCOMYCIN INJ 1,750 MG in SODIUM CHLORID 0.9% 500 ML INJ 500 ML IV SCH (22:00)
--- NOTE | 2017-08-20 22:29 | PD.ONC.PN ---
Subjective Subjective Remarks sitting up in chair no bleeding says that he is planning to go to [place] Objective Data Date Time Temp Pulse Resp B/P (MAP) Pulse Ox O2 Delivery O2 Flow Rate FiO2 08/20/17 20:00 98.3 84 20 118/68 (85) 98 08/20/17 16:09 98.3 82 18 120/69 (86) 99 08/20/17 16:00 86 08/20/17 12:09 97.5 78 18 113/63 (80) 99 08/20/17 12:00 76 08/20/17 09:32 90 08/20/17 09:31 Room Air 08/20/17 08:09 97.3 79 18 112/63 (79) 96 08/20/17 04:12 98.5 88 18 117/71 (86) 96 08/20/17 04:00 85 08/20/17 00:00 99 08/19/17 23:25 98.7 87 18 115/65 (82) 98 08/20/17 08/20/17 08/20/17 06:59 14:59 22:59 Intake Total 440 ml 600 ml Output Total 900 ml 800 ml Balance -460 ml -200 ml Result Diagram: 08/19/17 0627 08/20/17 0610 Laboratory Results Laboratory Tests Test 08/20/17 06:10 Creatinine 0.95 MG/DL Estimat Glomerular Filtration Rate 81 ML/MIN Culture Results Microbiology Date/Time Source Procedure Growth Status 08/19/17 06:27 Blood Peripheral Aerobic Blood Culture - Preliminary NO GROWTH IN 1 DAY Resulted 08/19/17 06:27 Blood Peripheral Anaerobic Blood Culture - Preliminary NO GROWTH IN 1 DAY Resulted 08/19/17 06:15 Blood Peripheral Aerobic Blood Culture - Preliminary NO GROWTH IN 1 DAY Resulted 08/19/17 06:15 Blood Peripheral Anaerobic Blood Culture - Preliminary NO GROWTH IN 1 DAY Resulted 08/18/17 23:00 Wound Foot Gram Stain - Final Resulted 08/18/17 23:00 Wound Culture - Preliminary Gram Negative Rafael S. Aureus Mrsa Resulted Administered Medications Medications (Trade) Dose Ordered Sig/Tri Route PRN Reason Start Time Stop Time Status Last Admin Dose Admin Tamsulosin HCl (Flomax) 0.4 mg HS PO 07/29/17 21:00 08/20/17 21:59 Lisinopril (Prinivil) 2.5 mg DAILY PO 07/30/17 09:00 Future hold 08/19/17 09:00 Sodium Chloride (NS Flush) 2 ml BID IV FLUSH 07/29/17 21:00 08/20/17 22:00 Acetaminophen (Tylenol) 650 mg Q4H PRN PO TEMP > 100.4 OR HEADACHE 07/29/17 20:30 08/19/17 12:19 Ondansetron HCl (Zofran Inj) 4 mg Q6H PRN IVP NAUSEA OR VOMITING 07/29/17 20:30 08/19/17 22:44 Senna/Docusate Sodium (Emelia-Colace) 1 tab BID PO 07/29/17 21:00 08/20/17 08:29 Magnesium Hydroxide (Milk Of Magntara Liq) 30 ml Q12H PRN PO Mild constipation 07/29/17 20:30 08/02/17 09:33 Lorazepam (Ativan) 0.5 mg Q8H PRN PO SEVERE ANXIETY OR AGITATION 07/29/17 20:30 08/09/17 09:36 Hydromorphone HCl (Dilaudid Pf Inj) 0.5 mg Q4H PRN IV PAIN 6-10 07/29/17 20:45 08/16/17 05:02 Pantoprazole Sodium (Protonix Inj) 40 mg Q24H IV PUSH 07/30/17 21:00 08/20/17 21:59 Oxycodone/ Acetaminophen (Percocet 10-325 Mg) 1 tab Q4H PRN PO PAIN SCALE 1 TO 5 07/29/17 20:30 08/20/17 21:58 Insulin Aspart (NovoLOG SUPPLEMENTAL SCALE) 1 ACHS SLIDING SCALE SQ 07/29/17 21:00 08/20/17 17:00 Sodium Chloride 1,000 ml @ 50 mls/hr Q20H IV 07/30/17 13:15 08/18/17 03:37 Aspirin (Ecotrin Ec) 81 mg DAILY PO 07/31/17 09:00 08/20/17 08:29 Morphine Sulfate (Morphine Inj) 5 mg Q2H PRN IV PUSH CHEST PAIN 07/30/17 14:00 07/30/17 22:03 Lorazepam (Ativan Inj) 0.5 mg Q6H PRN IV ANXIETY 07/31/17 03:15 08/09/17 20:00 Promethazine HCl (Phenergan Inj) 25 mg Q6H PRN IV-CENTRAL NAUSEA 07/31/17 03:15 08/14/17 22:23 Heparin Sodium (Porcine) (Heparin Inj) 5,000 units BID SQ 07/31/17 21:00 08/19/17 21:59 Metoprolol Tartrate (Lopressor) 100 mg Q12H PO 08/03/17 15:00 08/20/17 02:59 Insulin Detemir (Levemir Inj) 15 units DAILY SQ 08/11/17 09:00 08/20/17 08:29 Guaifenesin/ Dextromethorphan (Robitussin Dm 200-20 Mg/10 ml Liq) 10 ml Q6H PRN PO COUGH 08/10/17 20:45 08/20/17 06:58 Promethazine HCl (Phenergan Inj) 12.5 mg Q6H PRN IM NAUSEA OR VOMITING 08/12/17 16:30 08/16/17 21:00 Isosorbide Mononitrate (Imdur) 30 mg DAILY@07 PO 08/16/17 07:00 08/20/17 06:58 Ascorbic Acid (Vitamin C) 1,000 mg DAILY PO 08/17/17 09:00 08/20/17 08:29 Folic Acid (Folate) 1 mg DAILY PO 08/17/17 09:00 08/20/17 08:29 Vancomycin HCl 1750 mg/Sodium Chloride 517.5 ml @ 250 mls/hr Q24H IV 08/18/17 21:00 08/20/17 22:00 Objective Remarks GENERAL:nad CARDIOVASCULAR: Regular rate and rhythm without murmurs. RESPIRATORY: Breath sounds equal bilaterally. No accessory muscle use. GASTROINTESTINAL: Abdomen soft, non-tender, nondistended. EXTREMITIES: Left foot osteomyelitis, dressing in place,marcy boot Assessment/Plan Problem List: (1) Anemia ICD Codes: D64.9 - Anemia, unspecified Plan: -- Likely microcytic anemia -- Stool Hemoccult pending -- Iron sucrose ordered -- Patient had EGD that showed reflux esophagitis -- Status post 4 units packed red blood cells this admission -- Chronic kidney disease contributing (2) Elevated troponin ICD Codes: R74.8 - Abnormal levels of other serum enzymes Plan: -- Cardiology following Assessment 57 y/o male with multiple comorbidities who has received multiple transfusions this admission with severe microcytic anemia Plan 1. Anemia due to iron deficiency and CKD - still microcytic - Hb improving - Repeat Iron infusion - Procrit 10,000 once Problem Qualifiers (1) Anemia: Jarred Lee MD Aug 20, 2017 22:29
[2017-08-20] MEDS: IRON SUCROSE INJ 200 MG in SODIUM CHLORIDE 0.9% INJ 100 ML IV SCH (23:10)
[2017-08-20] MEDS: ONDANSETRON HCL 4 MG/2 ML VIAL IVP PRN (23:29)
[2017-08-21] VITALS (10 sets, daily range): BP systolic 109–131; BP diastolic 56–74; PULSE 84–107; RESP 14–18; TEMP 98.3–98.8; O2SAT 92–99
[2017-08-21] MEDS: METOPROLOL TARTRATE 100 MG TAB PO SCH ×2 (03:00→15:30)
[2017-08-21] MEDS: ISOSORBIDE MONONITRATE 30 MG CR TAB (IMDUR) PO SCH (05:21)
[2017-08-21] MEDS: ONDANSETRON HCL 4 MG/2 ML VIAL IVP PRN ×3 (06:51→21:58)
[2017-08-21] MEDS: guaiFENesin/DEXTROMETHORPHAN 200 MG/20 MG/10 ML CUP PO PRN ×2 (06:51→18:29)
[2017-08-21] MEDS: INSULIN ASPART SUPPLEMENTAL SCALE SQ SCH ×4 (08:00→22:02)
[2017-08-21] MEDS: SODIUM CHLORIDE 0.9% FLUSH 10 ML FLUSH IV FLUSH SCH ×2 (08:54→21:59)
[2017-08-21] MEDS: IRON SUCROSE INJ 200 MG in SODIUM CHLORIDE 0.9% INJ 100 ML IV SCH (08:54)
[2017-08-21] MEDS: ASCORBIC ACID 500 MG TAB PO SCH (08:55)
[2017-08-21] MEDS: ASPIRIN EC 81 MG TABEC PO SCH (08:56)
[2017-08-21] MEDS: FOLIC ACID 1 MG TAB PO SCH (08:56)
[2017-08-21] MEDS: HEPARIN SODIUM - SQ 10,000 UNITS/ML VIAL SQ SCH ×2 (08:57→21:00)
[2017-08-21] MEDS: DOCUSATE SODIUM 50 MG/SENNA 8.6 MG TAB PO SCH ×2 (08:57→21:59)
[2017-08-21] MEDS: LISINOPRIL 5 MG TAB PO SCH (08:59)
[2017-08-21] MEDS ORDERED: EPOETIN ALFA 10,000 UNITS/ML VIAL SQ ONE (09:00)
[2017-08-21] MEDS: INSULIN DETEMIR 100 UNITS/ML VIAL SQ SCH (09:01)
[2017-08-21] MEDS: oxyCODONE/ACETAMINOPHEN 10 MG/325 MG TAB PO PRN ×4 (09:21→21:58)
--- NOTE | 2017-08-21 10:13 | HHI.FPPN ---
Objective Vitals Vital Signs Date Time Temp Pulse Resp B/P (MAP) Pulse Ox O2 Delivery O2 Flow Rate FiO2 08/21/17 08:00 98.3 95 16 118/60 (79) 92 08/21/17 07:51 Room Air 3.00 21 08/21/17 04:00 84 08/21/17 00:00 98.8 107 18 118/57 (77) 95 08/21/17 00:00 100 08/20/17 21:02 97 21 08/20/17 20:00 91 08/20/17 20:00 97 Room Air 08/20/17 20:00 98.3 84 20 118/68 (85) 98 08/20/17 16:09 98.3 82 18 120/69 (86) 99 08/20/17 16:00 86 08/20/17 12:09 97.5 78 18 113/63 (80) 99 08/20/17 12:00 76 I/O 08/20/17 08/20/17 08/20/17 08/21/17 08/21/17 08/21/17 07:00 15:00 23:00 07:00 15:00 23:00 Intake Total 440 ml 600 ml Output Total 900 ml 800 ml 500 ml 700 ml Balance -460 ml -200 ml -500 ml -700 ml Intake Oral 440 ml 600 ml Output Urine Total 900 ml 800 ml 500 ml 700 ml # Bowel Movements 0 0 Result Diagram: 08/19/17 0627 08/20/17 0610 Objective Remarks GENERAL: SKIN: Warm and dry. large ulcerations LLE HEAD: Atraumatic. Normocephalic. EYES: Pupils equal and round. No scleral icterus. No injection or drainage. ENT: No nasal bleeding or discharge. Mucous membranes pink and moist. ngt c/d/ i NECK: Trachea midline. No JVD. CARDIOVASCULAR: Regular rate and rhythm. RESPIRATORY: r ronhci and crackles, harsh cough GASTROINTESTINAL: Abdomen soft, non-tender, nondistended. Hepatic and splenic margins not palpable. MUSCULOSKELETAL: Extremities without clubbing, cyanosis, or edema. No obvious deformities. NEUROLOGICAL: Awake and alert. No obvious cranial nerve deficits. Motor grossly within normal limits. 1 out of 5 muscle strength in the arms and legs. Normal speech. PSYCHIATRIC: Appropriate mood and affect; insight and judgment normal. 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 Non-ST elevation [place]- oxygen Cardiology following, -medical management Diabetic ulcers Left lower extremity foot infection Septic arthritis left lower extremity Continue IV abx ID following Follow CBC Podiatry following DM: UNCONTROLLED, SOME HYPOGLYCEMIA, CONTINUE INSULIN, Bronchitis: duonebs qid Iron defic anemia, chronic dz, renal dz: heme onc workup, iv iron, Chronic kidney disease stage III Monitor renal function Atrial fibrillation Follow on telemetry Hypertension Continue baseline treatment Follow blood pressures Adjust treatments as needed DVT prophylaxis Heparin dispo: PT after discharge Arthur Cortez MD Aug 21, 2017 10:13
[2017-08-21] MEDS: SODIUM CHLOR 0.9% 1000 ML INJ 1,000 ML IV SCH (18:12)
[2017-08-21] MEDS ORDERED: PHARMACY ORDERED LAB ONE (20:45)
[2017-08-21] MEDS: TAMSULOSIN HCL 0.4 MG CAP PO SCH (21:58)
[2017-08-21] MEDS: VANCOMYCIN INJ 1,750 MG in SODIUM CHLORID 0.9% 500 ML INJ 500 ML IV SCH (21:59)
[2017-08-21] MEDS: PANTOPRAZOLE SODIUM 40 MG VIAL IV PUSH SCH (21:59)
[2017-08-21] MEDS: ACETAMINOPHEN 325 MG TAB PO PRN (22:01)
[2017-08-22] VITALS (12 sets, daily range): BP systolic 101–142; BP diastolic 59–82; PULSE 70–103; RESP 14–20; TEMP 97.3–98.2; O2SAT 95–100
[2017-08-22] MEDS: guaiFENesin/DEXTROMETHORPHAN 200 MG/20 MG/10 ML CUP PO PRN (01:13)
[2017-08-22] MEDS: METOPROLOL TARTRATE 100 MG TAB PO SCH ×2 (03:00→16:30)
[2017-08-22] MEDS: ISOSORBIDE MONONITRATE 30 MG CR TAB (IMDUR) PO SCH (06:29)
[2017-08-22] MEDS: INSULIN ASPART SUPPLEMENTAL SCALE SQ SCH ×4 (08:00→20:31)
[2017-08-22] MEDS: oxyCODONE/ACETAMINOPHEN 10 MG/325 MG TAB PO PRN ×4 (08:15→20:36)
[2017-08-22 08:48] LABS: HEMATOCRIT 27.3 % (39.0-51.0); HEMOGLOBIN 9.1 GM/DL (13.0-17.0); MEAN CELL VOLUME 75.4 FL (80.0-100.0); MEAN CORPUSCULAR HEMOGLOBIN 25.2 PG (27.0-34.0); MEAN CORPUSCULAR HGB CONC 33.4 % (32.0-36.0); MEAN PLATELET VOLUME 6.6 FL (7.0-11.0); PLATELET COUNT 428 TH/MM3 (150-450); RED BLOOD COUNT 3.62 MIL/MM3 (4.50-5.90); WHITE BLOOD COUNT 6.9 TH/MM3 (4.0-11.0)
[2017-08-22] MEDS: ONDANSETRON HCL 4 MG/2 ML VIAL IVP PRN ×3 (08:58→20:48)
[2017-08-22] MEDS: SODIUM CHLORIDE 0.9% FLUSH 10 ML FLUSH IV FLUSH SCH ×2 (08:59→20:31)
[2017-08-22] MEDS: HEPARIN SODIUM - SQ 10,000 UNITS/ML VIAL SQ SCH ×2 (09:00→20:32)
[2017-08-22] MEDS: IRON SUCROSE INJ 200 MG in SODIUM CHLORIDE 0.9% INJ 100 ML IV SCH (09:00)
[2017-08-22] MEDS: DOCUSATE SODIUM 50 MG/SENNA 8.6 MG TAB PO SCH ×2 (09:00→20:30)
[2017-08-22] MEDS: ASCORBIC ACID 500 MG TAB PO SCH (09:08)
[2017-08-22] MEDS: ASPIRIN EC 81 MG TABEC PO SCH (09:09)
[2017-08-22] MEDS: FOLIC ACID 1 MG TAB PO SCH (09:10)
[2017-08-22] MEDS: LISINOPRIL 5 MG TAB PO SCH (09:10)
[2017-08-22 09:12] LABS: CREATININE 0.94 MG/DL (0.60-1.30)
[2017-08-22] MEDS: ACETAMINOPHEN 325 MG TAB PO PRN (09:53)
[2017-08-22] MEDS: INSULIN DETEMIR 100 UNITS/ML VIAL SQ SCH (09:54)
[2017-08-22] MEDS ORDERED: FUROSEMIDE 40 MG TAB PO ONE (10:00)
--- NOTE | 2017-08-22 11:40 | HHI.DS ---
Discharge Summary Admission Date Jul 29, 2017 at 20:17 Admitting Diagnosis NSTEMI (1) Osteomyelitis of foot ICD Code: M86.9 - Osteomyelitis, unspecified Status: Chronic (2) Ifuer-ya-yewkhfe kidney injury ICD Code: N17.9 - Acute kidney failure, unspecified; N18.9 - Chronic kidney disease, unspecified Status: Acute (3) DM (diabetes mellitus) ICD Code: E11.9 - Type 2 diabetes mellitus without complications Status: Chronic (4) NSTEMI (non-ST elevation myocardial infarction) ICD Code: I21.4 - Non-ST elevation (NSTEMI) myocardial infarction Status: Acute (5) CAD (coronary artery disease) ICD Code: I25.10 - Atherosclerotic heart disease of [place] coronary artery without angina pectoris Status: Chronic (6) Ischemic cardiomyopathy ICD Code: I25.5 - Ischemic cardiomyopathy Status: Chronic (7) Osteomyelitis of ankle or foot, left, acute ICD Code: M86.172 - Other acute osteomyelitis, left ankle and foot CBC/BMP: 08/22/17 0715 08/22/17 0715 Significant Findings Laboratory Tests Test 08/20/17 06:10 08/21/17 21:00 08/22/17 07:15 Estimat Glomerular Filtration Rate 81 ML/MIN (>89) 82 ML/MIN (>89) Vancomycin Level Trough 16.3 MCG/ML (5.0-10.0) Red Blood Count 3.62 MIL/MM3 (4.50-5.90) Hemoglobin 9.1 GM/DL (13.0-17.0) Hematocrit 27.3 % (39.0-51.0) Mean Corpuscular Volume 75.4 FL (80.0-100.0) Mean Corpuscular Hemoglobin 25.2 PG (27.0-34.0) Red Cell Distribution Width 23.0 % (11.6-17.2) Mean Platelet Volume 6.6 FL (7.0-11.0) PE at Discharge awake and alert, oriented x 3 anicteric lungs no rales regular rhythm abdomen- soft, nontender extremities- right LE-- lt serosanqwuinous, pus drainage Pt Condition on Discharge: Stable Discharge Disposition: Discharge to SNF Discharge Instructions DIET: Follow Instructions for: Diabetic Diet Speech Therapy-Diet Recommends: Other Activities you can perform: See Additionl Instruction Vy Romero MD Aug 22, 2017 11:40
[2017-08-22] MEDS: SODIUM CHLOR 0.9% 1000 ML INJ 1,000 ML IV SCH (14:27)
--- NOTE | 2017-08-22 16:04 | HHI.PR ---
Subjective Remarks In bed appears in nad. Says he has some bleeding from the wound in his leg. No pain . NO fever ro chills. Als c/o swelling of his legs and has some scrotal edema. Says he was on lasix before. no sob cough. No fevers or chills. Objective Vitals Vital Signs Date Time Temp Pulse Resp B/P (MAP) Pulse Ox O2 Delivery O2 Flow Rate FiO2 08/22/17 13:45 18 08/22/17 12:00 98.0 92 20 122/66 (84) 97 08/22/17 11:48 95 08/22/17 10:53 18 08/22/17 08:00 Room Air 3.00 21 08/22/17 08:00 98.1 98 20 140/82 (101) 96 08/22/17 07:57 96 08/22/17 05:35 97.4 81 14 101/59 (73) 99 08/22/17 03:55 70 08/22/17 02:20 98.2 83 16 111/59 (76) 95 08/22/17 00:00 80 08/21/17 22:18 98.7 95 14 109/56 (73) 94 08/21/17 20:00 89 08/21/17 19:30 94 Room Air I/O 08/21/17 08/21/17 08/21/17 08/22/17 08/22/17 08/22/17 06:59 14:59 22:59 06:59 14:59 22:59 Intake Total 100 ml 517.5 ml 1430 ml Output Total 500 ml 700 ml 300 ml 1000 ml Balance -500 ml -600 ml -300 ml -482.5 ml 1430 ml Intake Oral 720 ml IV Total 100 ml 517.5 ml 710 ml Output Urine Total 500 ml 700 ml 300 ml 1000 ml # Voids 4 # Bowel Movements 1 Result Diagram: 08/22/1715 08/22/1715 Imaging Last Impressions Upper Extremity Ultrasound 08/17/17 0000 Signed Impressions: Service Date/Time: Thursday, August 17, 2017 19:35 - CONCLUSION: 1. Nonocclusive thrombus in the right basilic vein. No other venous thrombosis identified. Jesus Lama MD Abdomen/Pelvis CT 08/01/17 0000 Signed Impressions: Service Date/Time: Tuesday, August 01, 2017 14:04 - CONCLUSION: 1. No dilated loops of small or large bowel. 2. Nonobstructing 4 mm calcified stone upper pole right kidney. 3. Cystic lesion upper pole left kidney with thin rim calcification; Bosniak 2 lesion should be followed with next examination in 6- 9 months. 4. Bilateral pleural effusions, right greater than left and multifocal areas of consolidation in the lower right lung. Davin Willett MD Liver Ultrasound 07/31/17 0000 Signed Impressions: Service Date/Time: Monday, July 31, 2017 15:35 - CONCLUSION: 1. Limited examination due to extensive bowel gas and patient's inability to cooperate with the exam. 2. Liver is slightly prominent with increased echogenicity suggesting some degree of fatty infiltration. 3. Ascites. Bilateral pleural effusions. Chau Silvestre MD Abdomen X-Ray 07/30/17 0000 Signed Impressions: Service Date/Time: July 14:48 - CONCLUSION: No bowel obstruction, ileus or free air. Degenerative changes and scoliosis of the thoracolumbar spine. Nixon Garcia MD Chest X-Ray 07/29/17 1710 Signed Impressions: Service Date/Time: Saturday, July 29, 2017 17:43 - CONCLUSION: Small bilateral effusions and slight persistent parenchymal opacity at the left lung base. Drake Espinal MD Objective Remarks GENERAL: SKIN: Warm and dry. large ulcerations LLE ENT: No nasal bleeding or discharge. Mucous membranes pink and moist. ngt c/d/ i NECK: Trachea midline. No JVD. CARDIOVASCULAR: Regular rate and rhythm. RESPIRATORY: r ronhci and crackles, harsh cough GASTROINTESTINAL: Abdomen soft, non-tender, nondistended. Hepatic and splenic margins not palpable. MUSCULOSKELETAL: Extremities without clubbing, cyanosis, or edema. No obvious deformities. NEUROLOGICAL: Awake and alert. No obvious cranial nerve deficits. Motor grossly within normal limits. 1 out of 5 muscle strength in the arms and legs. Normal speech. PSYCHIATRIC: Appropriate mood and affect; insight and judgment normal. A/P Problem List: (1) Osteomyelitis of foot ICD Code: M86.9 - Osteomyelitis, unspecified Status: Chronic (2) Wrqpx-[id number]-lrgheev kidney injury ICD Code: N17.9 - Acute kidney failure, unspecified; N18.9 - Chronic kidney disease, unspecified Status: Acute (3) DM (diabetes mellitus) ICD Code: E11.9 - Type 2 diabetes mellitus without complications Status: Chronic (4) NSTEMI (non-ST elevation myocardial infarction) ICD Code: I21.4 - Non-ST elevation (NSTEMI) myocardial infarction Status: Acute (5) CAD (coronary artery disease) ICD Code: I25.10 - Atherosclerotic heart disease of [place] coronary artery without angina pectoris Status: Chronic (6) Ischemic cardiomyopathy ICD Code: I25.5 - Ischemic cardiomyopathy Status: Chronic (7) Osteomyelitis of ankle or foot, left, acute ICD Code: M86.172 - Other acute osteomyelitis, left ankle and foot Assessment and Plan 57-year-old male admitted secondary to NSTEMI with left lower extremity osteomyelitis MRSA SEPSIS: neg echo, only option is amputation of LLE & patient refusing Basilic SVT Vomiting- egd showed Reflux esophagitis Possible Mock's esophagus Non-ST elevation [place]- oxygen Cardiology following, -medical management Diabetic ulcers Left lower extremity foot infection Septic arthritis left lower extremity Continue IV abx ID following Follow CBC Podiatry following DM: UNCONTROLLED, SOME HYPOGLYCEMIA, CONTINUE INSULIN. Monitor BS Bronchitis: duonebs qid Iron defic anemia, chronic dz, renal dz: heme onc workup, iv iron, Chronic kidney disease stage III Monitor renal function Atrial fibrillation Follow on telemetry Hypertension Continue baseline treatment Follow blood pressures Adjust treatments as needed DVT prophylaxis Heparin dispo: SNF when arrangements done Problem Qualifiers (1) CAD (coronary artery disease): Qualified Codes: I25.110 - Atherosclerotic heart disease of [place] coronary artery with unstable angina pectoris Vy Romero MD Aug 22, 2017 16:03
[2017-08-22] MEDS: VANCOMYCIN INJ 1,750 MG in SODIUM CHLORID 0.9% 500 ML INJ 500 ML IV SCH (20:29)
[2017-08-22] MEDS: TAMSULOSIN HCL 0.4 MG CAP PO SCH (20:30)
[2017-08-22] MEDS: PANTOPRAZOLE SODIUM 40 MG VIAL IV PUSH SCH (20:31)
[2017-08-23] VITALS (9 sets, daily range): BP systolic 111–153; BP diastolic 59–89; PULSE 72–113; RESP 16–24; TEMP 97.5–99.4; O2SAT 94–98
[2017-08-23] MEDS: guaiFENesin/DEXTROMETHORPHAN 200 MG/20 MG/10 ML CUP PO PRN ×2 (00:25→20:35)
[2017-08-23] MEDS: oxyCODONE/ACETAMINOPHEN 10 MG/325 MG TAB PO PRN ×5 (00:26→20:25)
[2017-08-23] MEDS: METOPROLOL TARTRATE 100 MG TAB PO SCH ×3 (02:19→16:52)
[2017-08-23] MEDS: ONDANSETRON HCL 4 MG/2 ML VIAL IVP PRN ×3 (03:18→20:36)
[2017-08-23] MEDS: ACETAMINOPHEN 325 MG TAB PO PRN ×2 (03:21→20:35)
[2017-08-23] MEDS: ISOSORBIDE MONONITRATE 30 MG CR TAB (IMDUR) PO SCH (06:24)
[2017-08-23] MEDS: INSULIN ASPART SUPPLEMENTAL SCALE SQ SCH ×4 (08:00→21:00)
[2017-08-23] MEDS: ASCORBIC ACID 500 MG TAB PO SCH (09:01)
[2017-08-23] MEDS: SODIUM CHLORIDE 0.9% FLUSH 10 ML FLUSH IV FLUSH SCH ×2 (09:01→21:00)
[2017-08-23] MEDS: ASPIRIN EC 81 MG TABEC PO SCH (09:02)
[2017-08-23] MEDS: FUROSEMIDE 40 MG TAB PO SCH (09:02)
[2017-08-23] MEDS: HEPARIN SODIUM - SQ 10,000 UNITS/ML VIAL SQ SCH ×2 (09:02→09:05)
[2017-08-23] MEDS: LISINOPRIL 5 MG TAB PO SCH (09:02)
[2017-08-23] MEDS: DOCUSATE SODIUM 50 MG/SENNA 8.6 MG TAB PO SCH ×2 (09:02→20:25)
[2017-08-23] MEDS: FOLIC ACID 1 MG TAB PO SCH (09:02)
[2017-08-23] MEDS: INSULIN DETEMIR 100 UNITS/ML VIAL SQ SCH (09:03)
[2017-08-23 09:18] LABS: AUTOMATED NEUTROPHIL # 4.4 TH/MM3 (1.8-7.7); BASOPHIL % 0.7 % (0.0-2.0); EOSINOPHIL # 0.4 TH/MM3 (0-0.4); EOSINOPHIL % 5.7 % (0.0-4.0); HEMATOCRIT 27.6 % (39.0-51.0); HEMOGLOBIN 9.1 GM/DL (13.0-17.0); LYMPH % 21.3 % (9.0-44.0); LYMPHOCYTE # 1.5 TH/MM3 (1.0-4.8); MEAN CELL VOLUME 75.5 FL (80.0-100.0); MEAN CORPUSCULAR HEMOGLOBIN 24.9 PG (27.0-34.0); MEAN CORPUSCULAR HGB CONC 33.1 % (32.0-36.0); MEAN PLATELET VOLUME 6.7 FL (7.0-11.0); MONO % 9.2 % (0.0-8.0); MONOCYTE # 0.6 TH/MM3 (0-0.9); NEUT % 63.1 % (16.0-70.0); PLATELET COUNT 415 TH/MM3 (150-450); RED BLOOD COUNT 3.66 MIL/MM3 (4.50-5.90); RED CELL DISTRIBUTION WIDTH 22.8 % (11.6-17.2); WHITE BLOOD COUNT 6.9 TH/MM3 (4.0-11.0)
[2017-08-23 10:04] LABS: BICARBONATE 27.3 MEQ/L (21.0-32.0); CREATININE 1.01 MG/DL (0.60-1.30)
[2017-08-23] MEDS: SODIUM CHLOR 0.9% 1000 ML INJ 1,000 ML IV SCH (11:58)
--- NOTE | 2017-08-23 15:35 | HHI.PR ---
Subjective Remarks in bed says he has lE edema and some scrotal edema. Lasix helps some/ o fever or chills. no n/v/d/c. Doesn't have an IV access, will order [facility] Objective Vitals Vital Signs Date Time Temp Pulse Resp B/P (MAP) Pulse Ox O2 Delivery O2 Flow Rate FiO2 08/23/17 12:00 98.1 87 22 118/63 (81) 98 08/23/17 08:00 97.5 97 24 123/68 (86) 98 08/23/17 08:00 72 08/23/17 05:10 18 08/23/17 04:19 83 08/23/17 04:00 98.0 85 16 150/66 (94) 95 08/23/17 04:00 Room Air 08/23/17 00:23 95 08/23/17 00:00 98.3 87 18 111/59 (76) 94 08/23/17 00:00 Room Air 08/22/17 20:39 95 08/22/17 20:30 Room Air 08/22/17 20:00 97.9 93 18 142/77 (98) 99 08/22/17 16:00 97.3 103 20 139/76 (97) 100 08/22/17 15:44 99 I/O 08/22/17 08/22/17 08/22/17 08/23/17 08/23/17 08/23/17 07:00 15:00 23:00 07:00 15:00 23:00 Intake Total 1117.5 ml 830 ml 200 ml 517.5 ml Output Total 1000 ml 400 ml Balance 117.5 ml 830 ml 200 ml 117.5 ml Intake Oral 720 ml 200 ml IV Total 1117.5 ml 110 ml 517.5 ml Output Urine Total 1000 ml 400 ml # Voids 4 # Bowel Movements 1 Result Diagram: 08/23/1781608/23/17816 Objective Remarks GENERAL: SKIN: Warm and dry. large ulcerations LLE ENT: No nasal bleeding or discharge. Mucous membranes pink and moist. ngt c/d/ i NECK: Trachea midline. No JVD. CARDIOVASCULAR: Regular rate and rhythm. RESPIRATORY: r ronhci and crackles, harsh cough GASTROINTESTINAL: Abdomen soft, non-tender, nondistended. Hepatic and splenic margins not palpable. MUSCULOSKELETAL: Extremities without clubbing, cyanosis, or edema. No obvious deformities. NEUROLOGICAL: Awake and alert. No obvious cranial nerve deficits. Motor grossly within normal limits. 1 out of 5 muscle strength in the arms and legs. Normal speech. PSYCHIATRIC: Appropriate mood and affect; insight and judgment normal. A/P Problem List: (1) Osteomyelitis of foot ICD Code: M86.9 - Osteomyelitis, unspecified Status: Chronic (2) Mtslw-[id number]-dlylcbf kidney injury ICD Code: N17.9 - Acute kidney failure, unspecified; N18.9 - Chronic kidney disease, unspecified Status: Acute (3) DM (diabetes mellitus) ICD Code: E11.9 - Type 2 diabetes mellitus without complications Status: Chronic (4) NSTEMI (non-ST elevation myocardial infarction) ICD Code: I21.4 - Non-ST elevation (NSTEMI) myocardial infarction Status: Acute (5) CAD (coronary artery disease) ICD Code: I25.10 - Atherosclerotic heart disease of [place] coronary artery without angina pectoris Status: Chronic (6) Ischemic cardiomyopathy ICD Code: I25.5 - Ischemic cardiomyopathy Status: Chronic (7) Osteomyelitis of ankle or foot, left, acute ICD Code: M86.172 - Other acute osteomyelitis, left ankle and foot Assessment and Plan 57-year-old male admitted secondary to NSTEMI with left lower extremity osteomyelitis MRSA SEPSIS: neg echo, only option is amputation of LLE & patient refusing Basilic SVT Vomiting- egd showed Reflux esophagitis Possible Mock's esophagus Non-ST elevation [place]- oxygen Cardiology following, -medical management Diabetic ulcers Left lower extremity foot infection Septic arthritis left lower extremity Continue IV abx ID following Follow CBC Podiatry following DM: UNCONTROLLED, SOME HYPOGLYCEMIA, CONTINUE INSULIN. Monitor BS Bronchitis: duonebs qid Iron defic anemia, chronic dz, renal dz: heme onc workup, iv iron, Chronic kidney disease stage III Monitor renal function Atrial fibrillation Follow on telemetry Hypertension Continue baseline treatment Follow blood pressures Adjust treatments as needed DVT prophylaxis Heparin dispo: SNF when arrangements done Problem Qualifiers (1) CAD (coronary artery disease): Qualified Codes: I25.110 - Atherosclerotic heart disease of [place] coronary artery with unstable angina pectoris Vy Romero MD Aug 23, 2017 15:35
[2017-08-23] MEDS: TAMSULOSIN HCL 0.4 MG CAP PO SCH (20:25)
[2017-08-23] MEDS ORDERED: PHARMACY ORDERED LAB ONE (20:45)
[2017-08-23] MEDS: PANTOPRAZOLE SODIUM 40 MG VIAL IV PUSH SCH (21:39)
[2017-08-23] MEDS: VANCOMYCIN INJ 1,750 MG in SODIUM CHLORID 0.9% 500 ML INJ 500 ML IV SCH (22:18)
[2017-08-24] VITALS (11 sets, daily range): BP systolic 126–144; BP diastolic 78–88; PULSE 80–107; RESP 18–21; TEMP 97.8–99.9; O2SAT 93–99
[2017-08-24] MEDS: oxyCODONE/ACETAMINOPHEN 10 MG/325 MG TAB PO PRN ×5 (02:01→21:02)
[2017-08-24] MEDS: METOPROLOL TARTRATE 100 MG TAB PO SCH ×2 (02:01→14:55)
[2017-08-24] MEDS: SODIUM CHLOR 0.9% 1000 ML INJ 1,000 ML IV SCH (06:14)
[2017-08-24] MEDS: ISOSORBIDE MONONITRATE 30 MG CR TAB (IMDUR) PO SCH (06:14)
[2017-08-24] MEDS: INSULIN ASPART SUPPLEMENTAL SCALE SQ SCH ×4 (08:00→20:42)
[2017-08-24 08:18] LABS: CREATININE 1.08 MG/DL (0.60-1.30)
[2017-08-24] MEDS: SODIUM CHLORIDE 0.9% FLUSH 10 ML FLUSH IV FLUSH SCH ×2 (08:30→20:46)
[2017-08-24] MEDS: FOLIC ACID 1 MG TAB PO SCH (08:32)
[2017-08-24] MEDS: HEPARIN SODIUM - SQ 10,000 UNITS/ML VIAL SQ SCH ×2 (08:32→20:46)
[2017-08-24] MEDS: ASCORBIC ACID 500 MG TAB PO SCH (08:32)
[2017-08-24] MEDS: DOCUSATE SODIUM 50 MG/SENNA 8.6 MG TAB PO SCH ×2 (08:33→20:47)
[2017-08-24] MEDS: FUROSEMIDE 40 MG TAB PO SCH (08:33)
[2017-08-24] MEDS: ASPIRIN EC 81 MG TABEC PO SCH (08:33)
[2017-08-24] MEDS: LISINOPRIL 5 MG TAB PO SCH (08:34)
[2017-08-24] MEDS: INSULIN DETEMIR 100 UNITS/ML VIAL SQ SCH (08:34)
[2017-08-24] MEDS: ONDANSETRON HCL 4 MG/2 ML VIAL IVP PRN ×2 (09:56→17:21)
--- NOTE | 2017-08-24 10:05 | HHI.FPPN ---
Objective Vitals Vital Signs Date Time Temp Pulse Resp B/P (MAP) Pulse Ox O2 Delivery O2 Flow Rate FiO2 08/24/17 08:00 98.1 89 21 129/79 (96) 99 08/24/17 04:02 80 08/24/17 04:00 Nasal Cannula 4.00 08/24/17 04:00 98.2 90 19 126/88 (101) 96 08/24/17 03:00 19 08/24/17 00:15 87 08/24/17 00:00 97.8 101 18 127/80 (96) 93 08/24/17 00:00 Room Air 08/23/17 21:43 18 08/23/17 20:25 Room Air 08/23/17 20:00 99.4 113 18 153/89 (110) 95 08/23/17 19:52 112 08/23/17 17:30 Room Air 08/23/17 16:00 94 08/23/17 16:00 97.5 111 20 134/86 (102) 94 08/23/17 13:30 Room Air 08/23/17 12:00 92 08/23/17 12:00 98.1 87 22 118/63 (81) 98 I/O 08/23/17 08/23/17 08/23/17 08/24/17 08/24/17 08/24/17 07:00 15:00 23:00 07:00 15:00 23:00 Intake Total 517.5 ml 960 ml 48979 ml Output Total 400 ml 460 ml 1600 ml Balance 117.5 ml 500 ml 05653 ml Intake Oral 960 ml 580 ml IV Total 517.5 ml 78716 ml Output Urine Total 400 ml 460 ml 1600 ml # Voids 4 Result Diagram: 08/23/17 0817 08/24/17 0740 Objective Remarks GENERAL: SKIN: Warm and dry. large ulcerations LLE HEAD: Atraumatic. Normocephalic. EYES: Pupils equal and round. No scleral icterus. No injection or drainage. ENT: No nasal bleeding or discharge. Mucous membranes pink and moist. ngt c/d/ i NECK: Trachea midline. No JVD. CARDIOVASCULAR: Regular rate and rhythm. RESPIRATORY: r ronhci and crackles, harsh cough GASTROINTESTINAL: Abdomen soft, non-tender, nondistended. Hepatic and splenic margins not palpable. MUSCULOSKELETAL: Extremities without clubbing, cyanosis, or edema. No obvious deformities. NEUROLOGICAL: Awake and alert. No obvious cranial nerve deficits. Motor grossly within normal limits. 1 out of 5 muscle strength in the arms and legs. Normal speech. PSYCHIATRIC: Appropriate mood and affect; insight and judgment normal. Medications and IVs Current Medications Medications (Trade) Dose Ordered Sig/Tri Route Start Time Stop Time Status Last Admin (Flomax) 0.4 mg HS PO 07/29/17 21:00 08/23/17 20:25 (Prinivil) 2.5 mg DAILY PO 07/30/17 09:00 Future hold 08/23/17 09:02 (Pill Splitter) 1 ea UNSCH PRN OTHER 07/29/17 20:30 (NS Flush) 2 ml UNSCH PRN IV FLUSH 07/29/17 20:30 (NS Flush) 2 ml BID IV FLUSH 07/29/17 21:00 08/24/17 08:30 (Tylenol) 650 mg Q4H PRN PO 07/29/17 20:30 08/23/17 20:35 (Zofran Inj) 4 mg Q6H PRN IVP 07/29/17 20:30 08/24/17 09:56 (Restoril) 15 mg HS PRN PO 07/29/17 20:30 (Narcan Inj) 0.4 mg UNSCH PRN IV PUSH 07/29/17 20:30 (Emelia-Colace) 1 tab BID PO 07/29/17 21:00 08/24/17 08:33 (Milk Of Magnesia Liq) 30 ml Q12H PRN PO 07/29/17 20:30 08/02/17 09:33 (Senokot) 17.2 mg Q12H PRN PO 07/29/17 20:30 (Dulcolax Supp) 10 mg DAILY PRN RECTAL 07/29/17 20:30 (Lactulose Liq) 30 ml DAILY PRN PO 07/29/17 20:30 (Ativan) 0.5 mg Q8H PRN PO 07/29/17 20:30 08/09/17 09:36 (Catapres) 0.1 mg Q6H PRN PO 07/29/17 20:30 (Dilaudid Pf Inj) 0.5 mg Q4H PRN IV 07/29/17 20:45 08/16/17 05:02 (Protonix Inj) 40 mg Q24H IV PUSH 07/30/17 21:00 08/23/17 21:39 (Percocet 10-325 Mg) 1 tab Q4H PRN PO 07/29/17 20:30 08/24/17 08:33 (D50w (Vial) Inj) 50 ml UNSCH PRN IV PUSH 07/29/17 20:45 (Glucagon Inj) 1 mg UNSCH PRN OTHER 07/29/17 20:45 (NovoLOG SUPPLEMENTAL SCALE) 1 ACHS SLIDING SCALE SQ 07/29/17 21:00 08/23/17 12:49 Sodium Chloride 1,000 ml @ 50 mls/hr Q20H IV 07/30/17 13:15 08/23/17 11:58 (Ecotrin Ec) 81 mg DAILY PO 07/31/17 09:00 08/24/17 08:33 (Morphine Inj) 5 mg Q2H PRN IV PUSH 07/30/17 14:00 07/30/17 22:03 (Ativan Inj) 0.5 mg Q6H PRN IV 07/31/17 03:15 08/09/17 20:00 (Phenergan Inj) 25 mg Q6H PRN IV-CENTRAL 07/31/17 03:15 08/14/17 22:23 (Heparin Inj) 5,000 units BID SQ 07/31/17 21:00 08/19/17 21:59 (Lopressor) 100 mg Q12H PO 08/03/17 15:00 08/22/17 16:30 (Levemir Inj) 15 units DAILY SQ 08/11/17 09:00 08/24/17 08:34 (Robitussin Dm 200-20 Mg/10 ml Liq) 10 ml Q6H PRN PO 08/10/17 20:45 08/23/17 20:35 (Compazine Inj) 10 mg Q4H PRN IM 08/12/17 14:30 (Phenergan Inj) 12.5 mg Q6H PRN IM 08/12/17 16:30 08/16/17 21:00 (Imdur) 30 mg DAILY@07 PO 08/16/17 07:00 08/20/17 06:58 Pharmacy Profile Note 0 ml @ 0 mls/hr UNSCH OTHER 08/15/17 18:45 (Vitamin C) 1,000 mg DAILY PO 08/17/17 09:00 08/24/17 08:32 (Folate) 1 mg DAILY PO 08/17/17 09:00 08/24/17 08:32 Vancomycin HCl 1750 mg/Sodium Chloride 517.5 ml @ 250 mls/hr Q24H IV 08/18/17 21:00 08/23/17 22:18 (Lasix) 40 mg DAILY PO 08/23/17 09:00 08/24/17 08:33 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 Non-ST elevation [place]- oxygen Cardiology following, -medical management Diabetic ulcers Left lower extremity foot infection Septic arthritis left lower extremity Continue IV abx ID following Follow CBC Podiatry following DM: UNCONTROLLED, SOME HYPOGLYCEMIA, CONTINUE INSULIN, Bronchitis: duonebs qid Iron defic anemia, chronic dz, renal dz: heme onc workup, iv iron, Chronic kidney disease stage III Monitor renal function Atrial fibrillation Follow on telemetry Hypertension Continue baseline treatment Follow blood pressures Adjust treatments as needed DVT prophylaxis Heparin dispo: PT REPORTS HE IS GOING TO [place] THIS WEEKEND. 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 ONLY OPTION WOULD BE FOR HIM TO SIGN OUT AMA SINCE HE HAS REFUSED PROCEDURE HERE AND IS THE ONLY OPTION MEDICALLY... Arthur Cortez MD Aug 24, 2017 10:05
--- NOTE | 2017-08-24 20:18 | HHI.PR ---
Addendum to Inpatient Note Additional Information seen today around 12 pm full note to follow Coty Wolf MD Aug 24, 2017 20:18
[2017-08-24] MEDS: PANTOPRAZOLE SODIUM 40 MG VIAL IV PUSH SCH (20:47)
[2017-08-24] MEDS: guaiFENesin/DEXTROMETHORPHAN 200 MG/20 MG/10 ML CUP PO PRN (20:47)
[2017-08-24] MEDS: TAMSULOSIN HCL 0.4 MG CAP PO SCH (20:47)
--- NOTE | 2017-08-24 23:29 | HHI.IDPN ---
Subjective Subjective Remarks delayed entry - pt was seen earlier today Foot culture with MRSA along with other organisms Repeat blood cultures are negative pt is afebrile He continues to refuse amputation Antibiotics vancomycin Lines PICC Allergies: Coded Allergies: codeine (Verified Allergy, Severe, Cardiac arrest, 07/29/17) PT REPORT HIS HEART STOP AFTER Objective . Vital Signs Date Time Temp Pulse Resp B/P (MAP) Pulse Ox O2 Delivery O2 Flow Rate FiO2 08/24/17 20:43 98.5 103 18 144/86 (105) 98 08/24/17 16:00 98.1 85 21 129/79 (96) 99 08/24/17 15:00 97 08/24/17 12:00 93 08/24/17 12:00 99.9 100 21 127/78 (94) 95 08/24/17 08:00 Nasal Cannula 4.00 21 08/24/17 08:00 98.1 89 21 129/79 (96) 99 08/24/17 08:00 107 08/24/17 04:02 80 08/24/17 04:00 Nasal Cannula 4.00 08/24/17 04:00 98.2 90 19 126/88 (101) 96 08/24/17 03:00 19 08/24/17 00:15 87 08/24/17 00:00 97.8 101 18 127/80 (96) 93 08/24/17 00:00 Room Air 08/24/17 08/24/17 08/25/17 15:00 23:00 07:00 Intake Total 1440 ml Balance 1440 ml Intake Oral 1440 ml # Voids 5 . Laboratory Tests Test 08/23/17 08:17 White Blood Count 6.9 TH/MM3 Red Blood Count 3.66 MIL/MM3 Hemoglobin 9.1 GM/DL Hematocrit 27.6 % Mean Corpuscular Volume 75.5 FL Mean Corpuscular Hemoglobin 24.9 PG Mean Corpuscular Hemoglobin Concent 33.1 % Red Cell Distribution Width 22.8 % Platelet Count 415 TH/MM3 Mean Platelet Volume 6.7 FL Neutrophils (%) (Auto) 63.1 % Lymphocytes (%) (Auto) 21.3 % Monocytes (%) (Auto) 9.2 % Eosinophils (%) (Auto) 5.7 % Basophils (%) (Auto) 0.7 % Neutrophils # (Auto) 4.4 TH/MM3 Lymphocytes # (Auto) 1.5 TH/MM3 Monocytes # (Auto) 0.6 TH/MM3 Eosinophils # (Auto) 0.4 TH/MM3 Basophils # (Auto) 0.0 TH/MM3 CBC Comment DIFF FINAL Differential Comment Laboratory Tests Test 08/23/17 08:17 08/24/17 07:40 Blood Urea Nitrogen 17 MG/DL Creatinine 1.01 MG/DL 1.08 MG/DL Random Glucose 140 MG/DL Calcium Level 8.0 MG/DL Sodium Level 131 MEQ/L Potassium Level 4.7 MEQ/L Chloride Level 98 MEQ/L Carbon Dioxide Level 27.3 MEQ/L Anion Gap 6 MEQ/L Estimat Glomerular Filtration Rate 76 ML/MIN 70 ML/MIN Imaging Last Impressions Upper Extremity Ultrasound 08/17/17 0000 Signed Impressions: Service Date/Time: Thursday, August 17, 2017 19:35 - CONCLUSION: 1. Nonocclusive thrombus in the right basilic vein. No other venous thrombosis identified. Jesus Lama MD Abdomen/Pelvis CT 08/01/17 0000 Signed Impressions: Service Date/Time: Tuesday, August 01, 2017 14:04 - CONCLUSION: 1. No dilated loops of small or large bowel. 2. Nonobstructing 4 mm calcified stone upper pole right kidney. 3. Cystic lesion upper pole left kidney with thin rim calcification; Bosniak 2 lesion should be followed with next examination in 6- 9 months. 4. Bilateral pleural effusions, right greater than left and multifocal areas of consolidation in the lower right lung. Davin Willett MD Liver Ultrasound 07/31/17 0000 Signed Impressions: Service Date/Time: Monday, July 31, 2017 15:35 - CONCLUSION: 1. Limited examination due to extensive bowel gas and patient's inability to cooperate with the exam. 2. Liver is slightly prominent with increased echogenicity suggesting some degree of fatty infiltration. 3. Ascites. Bilateral pleural effusions. Chau Silvestre MD Abdomen X-Ray 07/30/17 0000 Signed Impressions: Service Date/Time: July 14:48 - CONCLUSION: No bowel obstruction, ileus or free air. Degenerative changes and scoliosis of the thoracolumbar spine. Nixon Garcia MD Chest X-Ray 07/29/17 1710 Signed Impressions: Service Date/Time: Saturday, July 29, 2017 17:43 - CONCLUSION: Small bilateral effusions and slight persistent parenchymal opacity at the left lung base. Drake Espinal MD Physical Exam This is a well-developed male who is awake and alert and in no acute distress. SKIN: no rash HEENT: Head atraumatic. Extraocular movements grossly intact, pupils reactive to light. No icterus. Oropharynx, moist mucosa. No lesions. LUNGS: Clear breath sounds bilateral which are diminished. HEART: Regular rate and rhythm. No discernible murmur. ABDOMEN: Bowel sounds present, soft, no tenderness appreciated. No hepatosplenomegaly or masses EXTREMITIES: T dressing in place L foot GIU; no bladder distention NEUROLOGIC: Awake alert. No gross focal findings. Clear speech PSYCHIATRIC: The patient calm and cooperative. LINES: PICC in place RUE w/o e/o infection Assessment & Plan Remarks ISepsis from infected L foot, MSSA on previous admission L foot DFI and chronic osteo given the chronicity of the problem - pt refuses amputation and shows signs of clinical failure - polimicrobial infection This is limb threatening, life threatening infeciton: pt potentioally can develop endocarditis NSTEMI Severe CHF New issue: HIgh grade MRSA sepsis ? either from osteo or line or endcocardtis RUE US + for thrombosis 2 D echo negative prognosis for limb salavage is extremely poor, pt is at high risk for sepsis and further infectious coplications e.i. endocarditis, vertebral osteo and other conservative mngmnt with abx alone and/or I+D is not going to be successfull Apparently pt adamantly refuses only availbale treatment in his case (BKA) complete IV cefazoline and oral abx x 8 weeks (cefazoline) thru September 02 dc Levaquine x 6 wks for Acinetobacter coverage thru August 20 cont t vancomycin with taget tropgh 15-20 He needs 6 weeks of antimicrobial therapy however this problem is unfixable without amputation Coty Wolf MD Aug 24, 2017 23:29
[2017-08-25] VITALS (8 sets, daily range): BP systolic 104–152; BP diastolic 57–93; PULSE 83–100; RESP 18–20; TEMP 97.2–98.5; O2SAT 93–100
[2017-08-25] MEDS: CEFEPIME INJ 2,000 MG in SODIUM CHLORIDE 0.9% INJ 100 ML IV SCH ×4 (01:12→23:01)
[2017-08-25] MEDS: oxyCODONE/ACETAMINOPHEN 10 MG/325 MG TAB PO PRN ×4 (01:12→12:52)
[2017-08-25] MEDS: SODIUM CHLOR 0.9% 1000 ML INJ 1,000 ML IV SCH ×2 (01:17→21:20)
[2017-08-25] MEDS: METOPROLOL TARTRATE 100 MG TAB PO SCH ×2 (03:00→15:02)
[2017-08-25] MEDS: VANCOMYCIN INJ 1,750 MG in SODIUM CHLORID 0.9% 500 ML INJ 500 ML IV SCH (05:09)
[2017-08-25] MEDS: ISOSORBIDE MONONITRATE 30 MG CR TAB (IMDUR) PO SCH (05:11)
[2017-08-25 06:25] LABS: HEMATOCRIT 25.3 % (39.0-51.0); HEMOGLOBIN 8.5 GM/DL (13.0-17.0); MEAN CELL VOLUME 75.7 FL (80.0-100.0); MEAN CORPUSCULAR HEMOGLOBIN 25.3 PG (27.0-34.0); MEAN CORPUSCULAR HGB CONC 33.4 % (32.0-36.0); MEAN PLATELET VOLUME 6.3 FL (7.0-11.0); PLATELET COUNT 380 TH/MM3 (150-450); RED BLOOD COUNT 3.34 MIL/MM3 (4.50-5.90); RED CELL DISTRIBUTION WIDTH 22.8 % (11.6-17.2); WHITE BLOOD COUNT 7.3 TH/MM3 (4.0-11.0)
[2017-08-25] MEDS: INSULIN ASPART SUPPLEMENTAL SCALE SQ SCH ×4 (08:25→21:33)
[2017-08-25] MEDS: SODIUM CHLORIDE 0.9% FLUSH 10 ML FLUSH IV FLUSH SCH ×2 (08:25→21:33)
[2017-08-25] MEDS: FOLIC ACID 1 MG TAB PO SCH (08:26)
[2017-08-25] MEDS: FUROSEMIDE 40 MG TAB PO SCH (08:26)
[2017-08-25] MEDS: DOCUSATE SODIUM 50 MG/SENNA 8.6 MG TAB PO SCH ×2 (08:26→21:32)
[2017-08-25] MEDS: HEPARIN SODIUM - SQ 10,000 UNITS/ML VIAL SQ SCH ×2 (08:27→21:00)
[2017-08-25] MEDS: INSULIN DETEMIR 100 UNITS/ML VIAL SQ SCH (08:28)
[2017-08-25] MEDS: LISINOPRIL 5 MG TAB PO SCH (08:29)
[2017-08-25] MEDS: ONDANSETRON HCL 4 MG/2 ML VIAL IVP PRN ×3 (08:29→19:47)
[2017-08-25] MEDS: ASPIRIN EC 81 MG TABEC PO SCH (08:40)
[2017-08-25] MEDS: ASCORBIC ACID 500 MG TAB PO SCH (08:41)
--- NOTE | 2017-08-25 10:26 | HHI.FPPN ---
Subjective Remarks c/o left leg pain c/o nausea d/w RN's Objective Vitals Vital Signs Date Time Temp Pulse Resp B/P (MAP) Pulse Ox O2 Delivery O2 Flow Rate FiO2 08/25/17 08:00 97.2 97 20 137/86 (103) 93 08/25/17 07:38 Room Air 4.00 21 08/25/17 07:00 100 08/25/17 05:06 98.5 85 18 104/57 (73) 98 08/25/17 03:59 83 08/25/17 01:10 98.5 86 18 123/74 (90) 93 08/25/17 01:10 Room Air 08/24/17 23:54 92 08/24/17 20:43 Room Air 08/24/17 20:43 98.5 103 18 144/86 (105) 98 08/24/17 19:56 100 08/24/17 16:00 98.1 85 21 129/79 (96) 99 08/24/17 15:00 97 08/24/17 12:00 93 08/24/17 12:00 99.9 100 21 127/78 (94) 95 I/O 08/24/17 08/24/17 08/24/17 08/25/17 08/25/17 08/25/17 07:00 15:00 23:00 07:00 15:00 23:00 Intake Total 14814 ml 1440 ml Output Total 1600 ml Balance 92318 ml 1440 ml Intake Oral 580 ml 1440 ml IV Total 34028 ml Output Urine Total 1600 ml # Voids 5 Result Diagram: 08/25/17 0610 08/24/17 0740 Objective Remarks GENERAL: SKIN: Warm and dry. large ulcerations LLE HEAD: Atraumatic. Normocephalic. EYES: Pupils equal and round. No scleral icterus. No injection or drainage. ENT: No nasal bleeding or discharge. Mucous membranes pink and moist. ngt c/d/ i NECK: Trachea midline. No JVD. CARDIOVASCULAR: Regular rate and rhythm. RESPIRATORY: r ronhci and crackles, harsh cough GASTROINTESTINAL: Abdomen soft, non-tender, nondistended. Hepatic and splenic margins not palpable. MUSCULOSKELETAL: Extremities without clubbing, cyanosis, or edema. No obvious deformities. NEUROLOGICAL: Awake and alert. No obvious cranial nerve deficits. Motor grossly within normal limits. 1 out of 5 muscle strength in the arms and legs. Normal speech. PSYCHIATRIC: Appropriate mood and affect; insight and judgment normal. Medications and IVs Current Medications Medications (Trade) Dose Ordered Sig/Tri Route Start Time Stop Time Status Last Admin (Flomax) 0.4 mg HS PO 07/29/17 21:00 08/24/17 20:47 (Prinivil) 2.5 mg DAILY PO 07/30/17 09:00 Future hold 08/25/17 08:29 (Pill Splitter) 1 ea UNSCH PRN OTHER 07/29/17 20:30 (NS Flush) 2 ml UNSCH PRN IV FLUSH 07/29/17 20:30 (NS Flush) 2 ml BID IV FLUSH 07/29/17 21:00 08/24/17 20:46 (Tylenol) 650 mg Q4H PRN PO 07/29/17 20:30 08/23/17 20:35 (Zofran Inj) 4 mg Q6H PRN IVP 07/29/17 20:30 08/25/17 08:29 (Restoril) 15 mg HS PRN PO 07/29/17 20:30 (Narcan Inj) 0.4 mg UNSCH PRN IV PUSH 07/29/17 20:30 (Emelia-Colace) 1 tab BID PO 07/29/17 21:00 08/25/17 08:26 (Milk Of Magnesia Liq) 30 ml Q12H PRN PO 07/29/17 20:30 08/02/17 09:33 (Senokot) 17.2 mg Q12H PRN PO 07/29/17 20:30 (Dulcolax Supp) 10 mg DAILY PRN RECTAL 07/29/17 20:30 (Lactulose Liq) 30 ml DAILY PRN PO 07/29/17 20:30 (Ativan) 0.5 mg Q8H PRN PO 07/29/17 20:30 08/09/17 09:36 (Catapres) 0.1 mg Q6H PRN PO 07/29/17 20:30 (Dilaudid Pf Inj) 0.5 mg Q4H PRN IV 07/29/17 20:45 08/16/17 05:02 (Protonix Inj) 40 mg Q24H IV PUSH 07/30/17 21:00 08/24/17 20:47 (Percocet 10-325 Mg) 1 tab Q4H PRN PO 07/29/17 20:30 08/25/17 08:41 (D50w (Vial) Inj) 50 ml UNSCH PRN IV PUSH 07/29/17 20:45 (Glucagon Inj) 1 mg UNSCH PRN OTHER 07/29/17 20:45 (NovoLOG SUPPLEMENTAL SCALE) 1 ACHS SLIDING SCALE SQ 07/29/17 21:00 08/25/17 08:25 Sodium Chloride 1,000 ml @ 50 mls/hr Q20H IV 07/30/17 13:15 08/23/17 11:58 (Ecotrin Ec) 81 mg DAILY PO 07/31/17 09:00 08/25/17 08:40 (Morphine Inj) 5 mg Q2H PRN IV PUSH 07/30/17 14:00 07/30/17 22:03 (Ativan Inj) 0.5 mg Q6H PRN IV 07/31/17 03:15 08/09/17 20:00 (Phenergan Inj) 25 mg Q6H PRN IV-CENTRAL 07/31/17 03:15 08/14/17 22:23 (Heparin Inj) 5,000 units BID SQ 07/31/17 21:00 08/19/17 21:59 (Lopressor) 100 mg Q12H PO 08/03/17 15:00 08/22/17 16:30 (Levemir Inj) 15 units DAILY SQ 08/11/17 09:00 08/25/17 08:28 (Robitussin Dm 200-20 Mg/10 ml Liq) 10 ml Q6H PRN PO 08/10/17 20:45 08/24/17 20:47 (Compazine Inj) 10 mg Q4H PRN IM 08/12/17 14:30 (Phenergan Inj) 12.5 mg Q6H PRN IM 08/12/17 16:30 08/16/17 21:00 (Imdur) 30 mg DAILY@07 PO 08/16/17 07:00 08/20/17 06:58 Pharmacy Profile Note 0 ml @ 0 mls/hr UNSCH OTHER 08/15/17 18:45 (Vitamin C) 1,000 mg DAILY PO 08/17/17 09:00 08/25/17 08:41 (Folate) 1 mg DAILY PO 08/17/17 09:00 08/25/17 08:26 (Lasix) 40 mg DAILY PO 08/23/17 09:00 08/25/17 08:26 Vancomycin HCl 1750 mg/Sodium Chloride 517.5 ml @ 250 mls/hr Q24H IV 08/25/17 06:00 08/25/17 05:09 Miscellaneous Information SPECIFIC LAB TO BE DRAWN:VANCOMYCIN TROUGH DATE TO... 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 Non-ST elevation [place]- oxygen Cardiology following, -medical management Diabetic ulcers Left lower extremity foot infection Septic arthritis left lower extremity Continue IV abx ID following Follow CBC Podiatry following DM: UNCONTROLLED, SOME HYPOGLYCEMIA, CONTINUE INSULIN, Bronchitis: duonebs qid Iron defic anemia, chronic dz, renal dz: heme onc workup, iv iron, Chronic kidney disease stage III Monitor renal function Atrial fibrillation Follow on telemetry Hypertension Continue baseline treatment Follow blood pressures Adjust treatments as needed DVT prophylaxis Heparin dispo: PT REPORTS HE IS GOING TO [place] THIS WEEKEND. 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 ONLY OPTION WOULD BE FOR HIM TO SIGN OUT AMA SINCE HE HAS REFUSED PROCEDURE HERE AND IS THE ONLY OPTION MEDICALLY... Arthur Cortez MD Aug 25, 2017 10:26
[2017-08-25] MEDS: ACETAMINOPHEN 325 MG TAB PO PRN (17:37)
[2017-08-25] MEDS: HYDROmorphone HCL PF 2 MG/ML VIAL IV PRN (20:32)
[2017-08-25] MEDS: TAMSULOSIN HCL 0.4 MG CAP PO SCH (21:32)
[2017-08-25] MEDS: PANTOPRAZOLE SODIUM 40 MG VIAL IV PUSH SCH (21:33)
[2017-08-26] VITALS (8 sets, daily range): BP systolic 117–140; BP diastolic 62–85; PULSE 79–96; RESP 16–20; TEMP 97.6–98.1; O2SAT 96–100
[2017-08-26] MEDS: METOPROLOL TARTRATE 100 MG TAB PO SCH ×2 (03:00→16:50)
[2017-08-26] MEDS: ISOSORBIDE MONONITRATE 30 MG CR TAB (IMDUR) PO SCH (05:56)
[2017-08-26] MEDS: VANCOMYCIN INJ 1,750 MG in SODIUM CHLORID 0.9% 500 ML INJ 500 ML IV SCH (06:00)
[2017-08-26] MEDS: ONDANSETRON HCL 4 MG/2 ML VIAL IVP PRN ×3 (06:18→21:08)
[2017-08-26] MEDS: HYDROmorphone HCL PF 2 MG/ML VIAL IV PRN ×2 (06:18→21:06)
[2017-08-26] MEDS: INSULIN ASPART SUPPLEMENTAL SCALE SQ SCH ×4 (08:00→21:10)
[2017-08-26] MEDS: LISINOPRIL 5 MG TAB PO SCH (09:00)
[2017-08-26] MEDS: INSULIN DETEMIR 100 UNITS/ML VIAL SQ SCH (09:00)
[2017-08-26] MEDS: DOCUSATE SODIUM 50 MG/SENNA 8.6 MG TAB PO SCH ×2 (09:00→21:09)
[2017-08-26] MEDS: SODIUM CHLORIDE 0.9% FLUSH 10 ML FLUSH IV FLUSH SCH ×2 (09:00→21:09)
[2017-08-26] MEDS: HEPARIN SODIUM - SQ 10,000 UNITS/ML VIAL SQ SCH ×2 (09:00→21:00)
[2017-08-26] MEDS: FOLIC ACID 1 MG TAB PO SCH (09:03)
[2017-08-26] MEDS: CEFEPIME INJ 2,000 MG in SODIUM CHLORIDE 0.9% INJ 100 ML IV SCH ×3 (09:04→23:52)
[2017-08-26] MEDS: ASPIRIN EC 81 MG TABEC PO SCH (09:04)
[2017-08-26] MEDS: ASCORBIC ACID 500 MG TAB PO SCH (09:04)
[2017-08-26] MEDS: FUROSEMIDE 40 MG TAB PO SCH (09:04)
[2017-08-26 09:36] LABS: CREATININE 0.99 MG/DL (0.60-1.30)
--- NOTE | 2017-08-26 10:46 | HHI.FPPN ---
Subjective Remarks stable no new c/o d/w RN and CM again, confirmed that pt will have to go AMA Objective Vitals Vital Signs Date Time Temp Pulse Resp B/P (MAP) Pulse Ox O2 Delivery O2 Flow Rate FiO2 08/26/17 08:00 97.8 96 20 128/67 (87) 96 08/26/17 03:49 86 08/26/17 00:01 81 08/26/17 00:00 97.6 84 20 117/62 (80) 97 08/25/17 22:02 Room Air 08/25/17 20:00 86 08/25/17 20:00 97.6 85 20 105/80 (88) 95 08/25/17 16:00 97.7 94 20 128/82 (97) 100 08/25/17 16:00 94 08/25/17 12:00 100 08/25/17 12:00 97.9 97 20 152/93 (112) 98 I/O 08/25/17 08/25/17 08/25/17 08/26/17 08/26/17 08/26/17 07:00 15:00 23:00 07:00 15:00 23:00 Intake Total 617.5 ml 1500 ml 600 ml Output Total 750 ml Balance 617.5 ml 1500 ml -150 ml Intake Oral 1400 ml 600 ml IV Total 617.5 ml 100 ml Output Urine Total 750 ml # Voids 4 Result Diagram: 08/25/17 0610 08/26/17 0830 Objective Remarks GENERAL: SKIN: Warm and dry. large ulcerations LLE HEAD: Atraumatic. Normocephalic. EYES: Pupils equal and round. No scleral icterus. No injection or drainage. ENT: No nasal bleeding or discharge. Mucous membranes pink and moist. ngt c/d/ i NECK: Trachea midline. No JVD. CARDIOVASCULAR: Regular rate and rhythm. RESPIRATORY: r ronhci and crackles, harsh cough GASTROINTESTINAL: Abdomen soft, non-tender, nondistended. Hepatic and splenic margins not palpable. MUSCULOSKELETAL: Extremities without clubbing, cyanosis, or edema. No obvious deformities. NEUROLOGICAL: Awake and alert. No obvious cranial nerve deficits. Motor grossly within normal limits. 1 out of 5 muscle strength in the arms and legs. Normal speech. PSYCHIATRIC: Appropriate mood and affect; insight and judgment normal. Medications and IVs Current Medications Medications (Trade) Dose Ordered Sig/Tri Route Start Time Stop Time Status Last Admin (Flomax) 0.4 mg HS PO 07/29/17 21:00 08/26/17 21:09 (Prinivil) 2.5 mg DAILY PO 07/30/17 09:00 Future hold 08/27/17 08:58 (Pill Splitter) 1 ea UNSCH PRN OTHER 07/29/17 20:30 (NS Flush) 2 ml UNSCH PRN IV FLUSH 07/29/17 20:30 (NS Flush) 2 ml BID IV FLUSH 07/29/17 21:00 08/27/17 09:00 (Tylenol) 650 mg Q4H PRN PO 07/29/17 20:30 08/27/17 11:01 (Zofran Inj) 4 mg Q6H PRN IVP 07/29/17 20:30 08/27/17 09:11 (Restoril) 15 mg HS PRN PO 07/29/17 20:30 (Narcan Inj) 0.4 mg UNSCH PRN IV PUSH 07/29/17 20:30 (Emelia-Colace) 1 tab BID PO 07/29/17 21:00 08/27/17 08:59 (Milk Of Magnesia Liq) 30 ml Q12H PRN PO 07/29/17 20:30 08/02/17 09:33 (Senokot) 17.2 mg Q12H PRN PO 07/29/17 20:30 (Dulcolax Supp) 10 mg DAILY PRN RECTAL 07/29/17 20:30 (Lactulose Liq) 30 ml DAILY PRN PO 07/29/17 20:30 (Ativan) 0.5 mg Q8H PRN PO 07/29/17 20:30 08/09/17 09:36 (Catapres) 0.1 mg Q6H PRN PO 07/29/17 20:30 (Dilaudid Pf Inj) 0.5 mg Q4H PRN IV 07/29/17 20:45 08/27/17 15:27 (Protonix Inj) 40 mg Q24H IV PUSH 07/30/17 21:00 08/26/17 21:08 (Percocet 10-325 Mg) 1 tab Q4H PRN PO 07/29/17 20:30 08/25/17 12:52 (D50w (Vial) Inj) 50 ml UNSCH PRN IV PUSH 07/29/17 20:45 (Glucagon Inj) 1 mg UNSCH PRN OTHER 07/29/17 20:45 (NovoLOG SUPPLEMENTAL SCALE) 1 ACHS SLIDING SCALE SQ 07/29/17 21:00 08/27/17 13:40 Sodium Chloride 1,000 ml @ 50 mls/hr Q20H IV 07/30/17 13:15 08/23/17 11:58 (Ecotrin Ec) 81 mg DAILY PO 07/31/17 09:00 08/27/17 08:58 (Morphine Inj) 5 mg Q2H PRN IV PUSH 07/30/17 14:00 07/30/17 22:03 (Ativan Inj) 0.5 mg Q6H PRN IV 07/31/17 03:15 08/09/17 20:00 (Phenergan Inj) 25 mg Q6H PRN IV-CENTRAL 07/31/17 03:15 08/14/17 22:23 (Heparin Inj) 5,000 units BID SQ 07/31/17 21:00 08/19/17 21:59 (Lopressor) 100 mg Q12H PO 08/03/17 15:00 08/26/17 16:50 (Levemir Inj) 15 units DAILY SQ 08/11/17 09:00 08/27/17 09:00 (Robitussin Dm 200-20 Mg/10 ml Liq) 10 ml Q6H PRN PO 08/10/17 20:45 08/24/17 20:47 (Compazine Inj) 10 mg Q4H PRN IM 08/12/17 14:30 (Phenergan Inj) 12.5 mg Q6H PRN IM 08/12/17 16:30 08/16/17 21:00 (Imdur) 30 mg DAILY@07 PO 08/16/17 07:00 08/20/17 06:58 Pharmacy Profile Note 0 ml @ 0 mls/hr UNSCH OTHER 08/15/17 18:45 (Vitamin C) 1,000 mg DAILY PO 08/17/17 09:00 08/27/17 08:58 (Folate) 1 mg DAILY PO 08/17/17 09:00 3/8/18 08:58 (Lasix) 40 mg DAILY PO 08/23/17 09:00 08/27/17 08:58 Vancomycin HCl 1750 mg/Sodium Chloride 517.5 ml @ 250 mls/hr Q24H IV 08/25/17 06:00 08/27/17 06:57 Miscellaneous Information SPECIFIC LAB TO BE DRAWN:VANCOMYCIN TROUGH DATE TO... 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 Non-ST elevation [place]- oxygen Cardiology following, -medical management Diabetic ulcers Left lower extremity foot infection Septic arthritis left lower extremity Continue IV abx ID following Follow CBC Podiatry following DM: UNCONTROLLED, SOME HYPOGLYCEMIA, CONTINUE INSULIN, Bronchitis: duonebs qid Iron defic anemia, chronic dz, renal dz: heme onc workup, iv iron, Chronic kidney disease stage III Monitor renal function Atrial fibrillation Follow on telemetry Hypertension Continue baseline treatment Follow blood pressures Adjust treatments as needed DVT prophylaxis Heparin dispo: 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 ONLY OPTION WOULD BE FOR HIM TO SIGN OUT AMA SINCE HE HAS REFUSED PROCEDURE HERE AND IS THE ONLY OPTION MEDICALLY. I AGAIN DISCUSSED WITH HIM THAT HE WILL NOT SURVIVE WITHOUT MEDS AND CARE AND "I ACCEPT THAT RISK, BUT I WILL DO THAT BECAUSE I HAVE TO BE IN COURT IN [place] THURSDAY." Arthur Cortez MD Aug 26, 2017 10:46
[2017-08-26] MEDS: ACETAMINOPHEN 325 MG TAB PO PRN ×2 (11:34→16:57)
[2017-08-26] MEDS: SODIUM CHLOR 0.9% 1000 ML INJ 1,000 ML IV SCH (18:27)
[2017-08-26] MEDS: PANTOPRAZOLE SODIUM 40 MG VIAL IV PUSH SCH (21:08)
[2017-08-26] MEDS: TAMSULOSIN HCL 0.4 MG CAP PO SCH (21:09)
[2017-08-27] VITALS (8 sets, daily range): BP systolic 121–143; BP diastolic 78–88; PULSE 18–98; RESP 17–20; TEMP 97.5–97.8; O2SAT 94–99
[2017-08-27] MEDS: HYDROmorphone HCL PF 2 MG/ML VIAL IV PRN ×4 (01:00→19:47)
[2017-08-27] MEDS: METOPROLOL TARTRATE 100 MG TAB PO SCH ×2 (02:38→15:00)
[2017-08-27] MEDS: ONDANSETRON HCL 4 MG/2 ML VIAL IVP PRN ×2 (03:30→09:11)
[2017-08-27] MEDS: ISOSORBIDE MONONITRATE 30 MG CR TAB (IMDUR) PO SCH (06:52)
[2017-08-27] MEDS: VANCOMYCIN INJ 1,750 MG in SODIUM CHLORID 0.9% 500 ML INJ 500 ML IV SCH (06:57)
[2017-08-27] MEDS: INSULIN ASPART SUPPLEMENTAL SCALE SQ SCH ×5 (08:00→20:57)
[2017-08-27] MEDS: FOLIC ACID 1 MG TAB PO SCH (08:58)
[2017-08-27] MEDS: LISINOPRIL 5 MG TAB PO SCH (08:58)
[2017-08-27] MEDS: ASPIRIN EC 81 MG TABEC PO SCH (08:58)
[2017-08-27] MEDS: ASCORBIC ACID 500 MG TAB PO SCH (08:58)
[2017-08-27] MEDS: FUROSEMIDE 40 MG TAB PO SCH (08:58)
[2017-08-27] MEDS: DOCUSATE SODIUM 50 MG/SENNA 8.6 MG TAB PO SCH ×2 (08:59→19:50)
[2017-08-27] MEDS: INSULIN DETEMIR 100 UNITS/ML VIAL SQ SCH (09:00)
[2017-08-27] MEDS: SODIUM CHLORIDE 0.9% FLUSH 10 ML FLUSH IV FLUSH SCH ×2 (09:00→19:50)
[2017-08-27] MEDS: HEPARIN SODIUM - SQ 10,000 UNITS/ML VIAL SQ SCH ×2 (09:00→19:51)
[2017-08-27] MEDS: CEFEPIME INJ 2,000 MG in SODIUM CHLORIDE 0.9% INJ 100 ML IV SCH ×2 (11:00→18:02)
[2017-08-27] MEDS: ACETAMINOPHEN 325 MG TAB PO PRN (11:01)
[2017-08-27] MEDS: SODIUM CHLOR 0.9% 1000 ML INJ 1,000 ML IV SCH (14:27)
--- NOTE | 2017-08-27 16:29 | HHI.FPPN ---
Subjective Remarks SAME CONVERSATION YESTERDAY. PT ADAMANT TO LEAVE SAT AMA. Objective Vitals Vital Signs Date Time Temp Pulse Resp B/P (MAP) Pulse Ox O2 Delivery O2 Flow Rate FiO2 08/27/17 12:00 97.5 18 18 128/78 (95) 94 08/27/17 08:00 92 08/27/17 08:00 96 Room Air 21 08/27/17 08:00 97.7 88 18 143/80 (101) 98 08/27/17 04:00 75 08/27/17 04:00 Nasal Cannula 4.00 08/27/17 01:20 18 08/27/17 00:14 82 08/27/17 00:00 Nasal Cannula 4.00 08/27/17 00:00 97.7 83 17 121/88 (99) 99 08/26/17 21:10 Room Air 08/26/17 21:00 Room Air 08/26/17 20:25 97.7 85 16 122/70 (87) 100 08/26/17 20:00 79 I/O 08/26/17 08/26/17 08/26/17 08/27/17 08/27/17 08/27/17 07:00 15:00 23:00 07:00 15:00 23:00 Intake Total 600 ml 1560 ml 100 ml Output Total 750 ml Balance -150 ml 1560 ml 100 ml Intake Oral 600 ml 1560 ml IV Total 100 ml Output Urine Total 750 ml # Voids 4 # Bowel Movements 0 Result Diagram: 08/25/17 0610 08/26/17 0830 Objective Remarks GENERAL: SKIN: Warm and dry. large ulcerations LLE HEAD: Atraumatic. Normocephalic. EYES: Pupils equal and round. No scleral icterus. No injection or drainage. ENT: No nasal bleeding or discharge. Mucous membranes pink and moist. ngt c/d/ i NECK: Trachea midline. No JVD. CARDIOVASCULAR: Regular rate and rhythm. RESPIRATORY: r ronhci and crackles, harsh cough GASTROINTESTINAL: Abdomen soft, non-tender, nondistended. Hepatic and splenic margins not palpable. MUSCULOSKELETAL: Extremities without clubbing, cyanosis, or edema. No obvious deformities. NEUROLOGICAL: Awake and alert. No obvious cranial nerve deficits. Motor grossly within normal limits. 1 out of 5 muscle strength in the arms and legs. Normal speech. PSYCHIATRIC: Appropriate mood and affect; insight and judgment normal. Medications and IVs Current Medications Medications (Trade) Dose Ordered Sig/Tri Route Start Time Stop Time Status Last Admin (Flomax) 0.4 mg HS PO 07/29/17 21:00 08/26/17 21:09 (Prinivil) 2.5 mg DAILY PO 07/30/17 09:00 Future hold 08/27/17 08:58 (Pill Splitter) 1 ea UNSCH PRN OTHER 07/29/17 20:30 (NS Flush) 2 ml UNSCH PRN IV FLUSH 07/29/17 20:30 (NS Flush) 2 ml BID IV FLUSH 07/29/17 21:00 08/27/17 09:00 (Tylenol) 650 mg Q4H PRN PO 07/29/17 20:30 08/27/17 11:01 (Zofran Inj) 4 mg Q6H PRN IVP 07/29/17 20:30 08/27/17 09:11 (Restoril) 15 mg HS PRN PO 07/29/17 20:30 (Narcan Inj) 0.4 mg UNSCH PRN IV PUSH 07/29/17 20:30 (Emelia-Colace) 1 tab BID PO 07/29/17 21:00 08/27/17 08:59 (Milk Of Magnesia Liq) 30 ml Q12H PRN PO 07/29/17 20:30 08/02/17 09:33 (Senokot) 17.2 mg Q12H PRN PO 07/29/17 20:30 (Dulcolax Supp) 10 mg DAILY PRN RECTAL 07/29/17 20:30 (Lactulose Liq) 30 ml DAILY PRN PO 07/29/17 20:30 (Ativan) 0.5 mg Q8H PRN PO 07/29/17 20:30 08/09/17 09:36 (Catapres) 0.1 mg Q6H PRN PO 07/29/17 20:30 (Dilaudid Pf Inj) 0.5 mg Q4H PRN IV 07/29/17 20:45 08/27/17 15:27 (Protonix Inj) 40 mg Q24H IV PUSH 07/30/17 21:00 08/26/17 21:08 (Percocet 10-325 Mg) 1 tab Q4H PRN PO 07/29/17 20:30 08/25/17 12:52 (D50w (Vial) Inj) 50 ml UNSCH PRN IV PUSH 07/29/17 20:45 (Glucagon Inj) 1 mg UNSCH PRN OTHER 07/29/17 20:45 (NovoLOG SUPPLEMENTAL SCALE) 1 ACHS SLIDING SCALE SQ 07/29/17 21:00 08/27/17 13:40 Sodium Chloride 1,000 ml @ 50 mls/hr Q20H IV 07/30/17 13:15 08/23/17 11:58 (Ecotrin Ec) 81 mg DAILY PO 07/31/17 09:00 08/27/17 08:58 (Morphine Inj) 5 mg Q2H PRN IV PUSH 07/30/17 14:00 07/30/17 22:03 (Ativan Inj) 0.5 mg Q6H PRN IV 07/31/17 03:15 08/09/17 20:00 (Phenergan Inj) 25 mg Q6H PRN IV-CENTRAL 07/31/17 03:15 08/14/17 22:23 (Heparin Inj) 5,000 units BID SQ 07/31/17 21:00 08/19/17 21:59 (Lopressor) 100 mg Q12H PO 08/03/17 15:00 08/26/17 16:50 (Levemir Inj) 15 units DAILY SQ 08/11/17 09:00 08/27/17 09:00 (Robitussin Dm 200-20 Mg/10 ml Liq) 10 ml Q6H PRN PO 08/10/17 20:45 08/24/17 20:47 (Compazine Inj) 10 mg Q4H PRN IM 08/12/17 14:30 (Phenergan Inj) 12.5 mg Q6H PRN IM 08/12/17 16:30 08/16/17 21:00 (Imdur) 30 mg DAILY@07 PO 08/16/17 07:00 08/20/17 06:58 Pharmacy Profile Note 0 ml @ 0 mls/hr UNSCH OTHER 08/15/17 18:45 (Vitamin C) 1,000 mg DAILY PO 08/17/17 09:00 08/27/17 08:58 (Folate) 1 mg DAILY PO 08/17/17 09:00 08/27/17 08:58 (Lasix) 40 mg DAILY PO 08/23/17 09:00 08/27/17 08:58 Vancomycin HCl 1750 mg/Sodium Chloride 517.5 ml @ 250 mls/hr Q24H IV 08/25/17 06:00 08/27/17 06:57 Miscellaneous Information SPECIFIC LAB TO BE DRAWN:VANCOMYCIN TROUGH DATE TO... 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 Non-ST elevation [place]- oxygen Cardiology following, -medical management Diabetic ulcers Left lower extremity foot infection Septic arthritis left lower extremity Continue IV abx ID following Follow CBC Podiatry following DM: UNCONTROLLED, SOME HYPOGLYCEMIA, CONTINUE INSULIN, Bronchitis: duonebs qid Iron defic anemia, chronic dz, renal dz: heme onc workup, iv iron, Chronic kidney disease stage III Monitor renal function Atrial fibrillation Follow on telemetry Hypertension Continue baseline treatment Follow blood pressures Adjust treatments as needed DVT prophylaxis Heparin dispo: 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 ONLY OPTION WOULD BE FOR HIM TO SIGN OUT AMA SINCE HE HAS REFUSED PROCEDURE HERE AND CAN BE DONE AT [facility] [place], AND IS THE ONLY OPTION MEDICALLY. I AGAIN DISCUSSED WITH HIM THAT HE WILL NOT SURVIVE WITHOUT MEDS AND CARE IF HE GOES AMA AND HE STATED "I ACCEPT THAT RISK, BUT I WILL STILL DO THAT BECAUSE I HAVE TO BE IN COURT IN [place] THURSDAY." Arthur Cortez MD Aug 27, 2017 16:29
[2017-08-27] MEDS: PANTOPRAZOLE SODIUM 40 MG VIAL IV PUSH SCH (19:50)
[2017-08-27] MEDS: TAMSULOSIN HCL 0.4 MG CAP PO SCH (19:50)
[2017-08-28] VITALS (7 sets, daily range): BP systolic 111–141; BP diastolic 62–89; PULSE 88–107; RESP 16–20; TEMP 97.2–98.6; O2SAT 95–100
[2017-08-28] MEDS: HYDROmorphone HCL PF 2 MG/ML VIAL IV PRN ×4 (00:09→18:05)
[2017-08-28] MEDS: CEFEPIME INJ 2,000 MG in SODIUM CHLORIDE 0.9% INJ 100 ML IV SCH ×3 (00:09→18:05)
[2017-08-28] MEDS: METOPROLOL TARTRATE 100 MG TAB PO SCH ×2 (03:00→15:00)
[2017-08-28] MEDS ORDERED: PHARMACY ORDERED LAB ONE (05:45)
[2017-08-28] MEDS: VANCOMYCIN INJ 1,750 MG in SODIUM CHLORID 0.9% 500 ML INJ 500 ML IV SCH (06:52)
[2017-08-28] MEDS: ISOSORBIDE MONONITRATE 30 MG CR TAB (IMDUR) PO SCH (06:58)
[2017-08-28] MEDS: HEPARIN SODIUM - SQ 10,000 UNITS/ML VIAL SQ SCH ×2 (07:41→20:39)
[2017-08-28 07:55] LABS: HEMATOCRIT 28.3 % (39.0-51.0); HEMOGLOBIN 9.4 GM/DL (13.0-17.0); MEAN CELL VOLUME 75.6 FL (80.0-100.0); MEAN CORPUSCULAR HGB CONC 33.1 % (32.0-36.0); MEAN PLATELET VOLUME 6.9 FL (7.0-11.0); PLATELET COUNT 391 TH/MM3 (150-450); RED BLOOD COUNT 3.74 MIL/MM3 (4.50-5.90); RED CELL DISTRIBUTION WIDTH 22.5 % (11.6-17.2); WHITE BLOOD COUNT 8.3 TH/MM3 (4.0-11.0)
[2017-08-28 07:58] LABS: CREATININE 1.02 MG/DL (0.60-1.30)
[2017-08-28] MEDS: ACETAMINOPHEN 325 MG TAB PO PRN ×2 (08:54→20:53)
[2017-08-28] MEDS: DOCUSATE SODIUM 50 MG/SENNA 8.6 MG TAB PO SCH ×2 (08:55→20:39)
[2017-08-28] MEDS: ASCORBIC ACID 500 MG TAB PO SCH (08:55)
[2017-08-28] MEDS: ASPIRIN EC 81 MG TABEC PO SCH (08:55)
[2017-08-28] MEDS: FOLIC ACID 1 MG TAB PO SCH (08:55)
[2017-08-28] MEDS: SODIUM CHLORIDE 0.9% FLUSH 10 ML FLUSH IV FLUSH SCH ×2 (09:00→20:40)
[2017-08-28] MEDS: LISINOPRIL 5 MG TAB PO SCH (09:00)
[2017-08-28] MEDS: PROMETHAZINE INJ 25 MG/ML VIAL IM PRN (09:02)
[2017-08-28] MEDS: FUROSEMIDE 40 MG TAB PO SCH (09:02)
[2017-08-28] MEDS: INSULIN ASPART SUPPLEMENTAL SCALE SQ SCH ×4 (09:03→20:40)
[2017-08-28] MEDS: INSULIN DETEMIR 100 UNITS/ML VIAL SQ SCH (09:03)
[2017-08-28] MEDS: SODIUM CHLOR 0.9% 1000 ML INJ 1,000 ML IV SCH (10:24)
--- NOTE | 2017-08-28 10:48 | HHI.FPPN ---
Subjective Remarks pt points out that his L leg looks worse. he states he is leaving tomorrow no matter what anyone says... d/w RN Objective Vitals Vital Signs Date Time Temp Pulse Resp B/P (MAP) Pulse Ox O2 Delivery O2 Flow Rate FiO2 08/28/17 09:54 18 08/28/17 08:26 98.3 89 18 124/79 (94) 95 08/28/17 07:00 Room Air 08/28/17 04:00 Room Air 08/28/17 04:00 97.6 97 20 141/75 (97) 97 08/28/17 04:00 88 08/28/17 00:18 98.6 96 18 111/62 (78) 97 08/28/17 00:18 Room Air 08/28/17 00:00 93 08/27/17 20:00 98 08/27/17 19:58 Room Air 08/27/17 19:58 97.8 97 20 133/84 (100) 97 08/27/17 16:00 97.5 92 18 127/78 (94) 96 08/27/17 12:00 97.5 18 18 128/78 (95) 94 I/O 08/27/17 08/27/17 08/27/17 08/28/17 08/28/17 08/28/17 07:00 15:00 23:00 07:00 15:00 23:00 Intake Total 100 ml 960 ml 910 ml Output Total 900 ml Balance 100 ml 960 ml 10 ml Intake Oral 960 ml 810 ml IV Total 100 ml 100 ml Output Urine Total 900 ml # Bowel Movements 1 Result Diagram: 08/28/17 0647 08/28/17 0647 Objective Remarks GENERAL: SKIN: Warm and dry. large ulcerations LLE, 3 plus edema LLE, dusky in color around midfoot and ankle, HEAD: Atraumatic. Normocephalic. EYES: Pupils equal and round. No scleral icterus. No injection or drainage. ENT: No nasal bleeding or discharge. Mucous membranes pink and moist. ngt c/d/ i NECK: Trachea midline. No JVD. CARDIOVASCULAR: Regular rate and rhythm. RESPIRATORY: r ronhci and crackles, harsh cough GASTROINTESTINAL: Abdomen soft, non-tender, nondistended. Hepatic and splenic margins not palpable. MUSCULOSKELETAL: see skin eval, RLE normal, LLE gangrenous, NEUROLOGICAL: Awake and alert. No obvious cranial nerve deficits. Motor grossly within normal limits. 3 out of 5 muscle strength in the arms and legs. Normal speech. PSYCHIATRIC: Appropriate mood and affect; insight and judgment normal. 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 Non-ST elevation [place]- oxygen Cardiology following, -medical management Diabetic ulcers Left lower extremity foot infection Septic arthritis left lower extremity Continue IV abx ID following Follow CBC Podiatry following DM: UNCONTROLLED, SOME HYPOGLYCEMIA, CONTINUE INSULIN, Bronchitis: duonebs qid Iron defic anemia, chronic dz, renal dz: heme onc workup, iv iron, Chronic kidney disease stage III Monitor renal function Atrial fibrillation Follow on telemetry Hypertension Continue baseline treatment Follow blood pressures Adjust treatments as needed DVT prophylaxis Heparin dispo: 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 ONLY OPTION WOULD BE FOR HIM TO SIGN OUT AMA SINCE HE HAS REFUSED PROCEDURE HERE AND AMPUTATION CAN BE DONE AT [facility] [place], AND IS THE ONLY OPTION MEDICALLY. I AGAIN DISCUSSED WITH HIM THAT HE WILL NOT SURVIVE WITHOUT MEDS AND CARE IF HE GOES AMA AND HE STATED "I ACCEPT THAT RISK, BUT I WILL STILL DO THAT BECAUSE I HAVE TO BE IN COURT IN [place] THURSDAY." AGAIN DESCRIBED TO HIM THAT WE CANNOT PROVIDE HIM WITH SERVICES TO DISCHARGE TOMORROW BECAUSE IT IS NOT A REASONABLE PLAN AND HE WILL LIKELY PASS WITHOUT CONTINUAL INPT CARE. Arthur Cortez MD Aug 28, 2017 10:48
[2017-08-28] MEDS: PANTOPRAZOLE SODIUM 40 MG VIAL IV PUSH SCH (20:39)
[2017-08-28] MEDS: TAMSULOSIN HCL 0.4 MG CAP PO SCH (20:39)
[2017-08-28] MEDS: ONDANSETRON HCL 4 MG/2 ML VIAL IVP PRN (20:52)
[2017-08-29] VITALS: PULSE 98
[2017-08-29 00:02] VITALS: BP 98/58; PULSE 98; RESP 18; TEMP 98.7; O2SAT 95
[2017-08-29] MEDS: CEFEPIME INJ 2,000 MG in SODIUM CHLORIDE 0.9% INJ 100 ML IV SCH ×2 (01:21→08:26)
[2017-08-29] MEDS: HYDROmorphone HCL PF 2 MG/ML VIAL IV PRN ×2 (01:21→08:28)
[2017-08-29] MEDS: LORazepam 2 MG/ML VIAL IV PRN ×2 (02:41→08:27)
[2017-08-29] MEDS: oxyCODONE/ACETAMINOPHEN 10 MG/325 MG TAB PO PRN (02:41)
[2017-08-29] MEDS: METOPROLOL TARTRATE 100 MG TAB PO SCH (03:00)
[2017-08-29 04:00] VITALS: PULSE 90
[2017-08-29] MEDS: ISOSORBIDE MONONITRATE 30 MG CR TAB (IMDUR) PO SCH (06:04)
[2017-08-29] MEDS: VANCOMYCIN INJ 1,750 MG in SODIUM CHLORID 0.9% 500 ML INJ 500 ML IV SCH (06:04)
[2017-08-29] MEDS: SODIUM CHLOR 0.9% 1000 ML INJ 1,000 ML IV SCH (06:04)
[2017-08-29] MEDS: INSULIN ASPART SUPPLEMENTAL SCALE SQ SCH (07:57)
[2017-08-29 08:00] VITALS: BP 149/91; PULSE 97; RESP 20; TEMP 97.5; O2SAT 94
[2017-08-29] MEDS: FOLIC ACID 1 MG TAB PO SCH (08:31)
[2017-08-29] MEDS: DOCUSATE SODIUM 50 MG/SENNA 8.6 MG TAB PO SCH (08:32)
[2017-08-29] MEDS: ASCORBIC ACID 500 MG TAB PO SCH (08:32)
[2017-08-29] MEDS: ASPIRIN EC 81 MG TABEC PO SCH (08:32)
[2017-08-29] MEDS: LISINOPRIL 5 MG TAB PO SCH (08:33)
[2017-08-29] MEDS: HEPARIN SODIUM - SQ 10,000 UNITS/ML VIAL SQ SCH (08:33)
[2017-08-29] MEDS: FUROSEMIDE 40 MG TAB PO SCH (08:33)
[2017-08-29] MEDS: INSULIN DETEMIR 100 UNITS/ML VIAL SQ SCH (08:34)
[2017-08-29] MEDS: SODIUM CHLORIDE 0.9% FLUSH 10 ML FLUSH IV FLUSH SCH (08:42)
[2017-08-29] MEDS: ONDANSETRON HCL 4 MG/2 ML VIAL IVP PRN (08:49)
--- NOTE | 2017-08-29 12:27 | PD.AMA ---
Against Medical Advice Note Discharge Disposition: Against Medical Advice Pt Condition on Discharge: Guarded AMA Statement Patient Luther Lucas has decided to leave the hospital against medical advice. This patient has the capacity to refuse care and understands the risks of leaving, including permanent disability and/or , and has had an opportunity to ask questions about his condition. The patient has been informed that he may return for care at any time, and follow up has been arranged/ advised. It was explained to Mr. Lucas that despite his claims that we were holding him "hostage" he had the right to leave at any time. Sonido Beck MD Aug 29, 2017 12:27
--- NOTE | 2017-08-29 12:37 | HHI.DS ---
Discharge Summary Admission Date Jul 29, 2017 at 20:17 Discharge Date: Aug 29, 2017 Admitting Diagnosis NSTEMI (1) Osteomyelitis of foot ICD Code: M86.9 - Osteomyelitis, unspecified Status: Chronic (2) Poyns-so-wjzuhlx kidney injury ICD Code: N17.9 - Acute kidney failure, unspecified; N18.9 - Chronic kidney disease, unspecified Status: Acute (3) DM (diabetes mellitus) ICD Code: E11.9 - Type 2 diabetes mellitus without complications Status: Chronic (4) NSTEMI (non-ST elevation myocardial infarction) ICD Code: I21.4 - Non-ST elevation (NSTEMI) myocardial infarction Status: Acute (5) CAD (coronary artery disease) ICD Code: I25.10 - Atherosclerotic heart disease of [place] coronary artery without angina pectoris Status: Chronic (6) Ischemic cardiomyopathy ICD Code: I25.5 - Ischemic cardiomyopathy Status: Chronic (7) Osteomyelitis of ankle or foot, left, acute ICD Code: M86.172 - Other acute osteomyelitis, left ankle and foot Procedures none Brief History - From Admission . CBC/BMP: 08/28/17 0647 08/28/17 0647 Significant Findings Laboratory Tests Test 08/28/17 06:47 Red Blood Count 3.74 MIL/MM3 (4.50-5.90) Hemoglobin 9.4 GM/DL (13.0-17.0) Hematocrit 28.3 % (39.0-51.0) Mean Corpuscular Volume 75.6 FL (80.0-100.0) Mean Corpuscular Hemoglobin 25.0 PG (27.0-34.0) Red Cell Distribution Width 22.5 % (11.6-17.2) Mean Platelet Volume 6.9 FL (7.0-11.0) Estimat Glomerular Filtration Rate 75 ML/MIN (>89) Vancomycin Level Trough 18.3 MCG/ML (5.0-10.0) PE at Discharge left foot in bloody dressing; appears chronically deformed pt awake, alert, lying in bed, NAD Pt update on day of discharge Pt wanting to leave AMA, does not want surgery at this hospital. Wants to be evaluated at another hospital by another surgeon. He was informed that transporting him to another hospital would not be deemed safe. Hospital Course Patient was admitted. Started on IV antibiotics. Cardiology and cardiothoracic surgery were consulted, deemed patient only be a candidate for medical management given his significant comorbidities. Infectious disease was also consulted, deemed that the only definitive permanent solution would be a BKA of the patient's left leg. However the patient had repetitively refused surgery despite multiple consultations including podiatry and vascular surgery. He did require transfusion of blood which deemed to be from iron deficiency anemia. Patient had wanted a second opinion from a different hospital. We informed him that he was not stable for discharge to any other facility for such an evaluation. Patient left AMA despite extensive counseling about risks and benefits. Pt Condition on Discharge: Guarded Discharge Disposition: Discharge Home Discharge Time: > 30 minutes Discharge Instructions Speech Therapy-Diet Recommends: Other Activities you can perform: See Additionl Instruction Follow up Referrals: Cardiology - 1 Week Infectious Disease - 1 Week PCP Follow-up - 2-3 Days Podiatry Sonido Beck MD Aug 29, 2017 12:37
[2017-08-30] MEDS ORDERED: VANCOMYCIN 1,500 MG/NS 500 ML IV SCH ×2 (06:00)
[2017-09-01] MEDS ORDERED: PHARMACY ORDERED LAB ONE (05:45)
== END 2017-08-29 12:28 | disposition left against medical advice (07) | DRG 280 ==
LOC: NEPE 17:03 → NEDA 20:17 → HCIS 22:27 → N04B 08-10 15:15
PROVIDERS: ADMIT Family Medicine; ATTEND Family Medicine
PROC: 30233N1 Transfusion of Nonautologous Red Blood Cells into Peripheral Vein, Percutaneous Approach (ICD-10-PCS; principal; 2017-07-30)
PROC: 0DB38ZX Excision of Lower Esophagus, Via Natural or Artificial Opening Endoscopic, Diagnostic (ICD-10-PCS; 2017-08-03)
DX: I21.4 Non-ST elevation (NSTEMI) myocardial infarction (principal); A41.02 Sepsis due to Methicillin resistant Staphylococcus aureus; E11.22 Type 2 diabetes mellitus with diabetic chronic kidney disease; E11.621 Type 2 diabetes mellitus with foot ulcer; E11.40 Type 2 diabetes mellitus with diabetic neuropathy, unspecified; E86.0 Dehydration; E11.65 Type 2 diabetes mellitus with hyperglycemia; I48.0 Paroxysmal atrial fibrillation; N17.9 Acute kidney failure, unspecified; I13.0 Hypertensive heart and chronic kidney disease with heart failure and stage 1 through stage 4 chronic kidney disease, or unspecified chronic kidney disease; M86.672 Other chronic osteomyelitis, left ankle and foot; I82.611 Acute embolism and thrombosis of superficial veins of right upper extremity; I22.2 Subsequent non-ST elevation (NSTEMI) myocardial infarction; E11.610 Type 2 diabetes mellitus with diabetic neuropathic arthropathy; I50.9 Heart failure, unspecified; N18.3 Chronic kidney disease, stage 3 (moderate); I48.2 Chronic atrial fibrillation; L97.529 Non-pressure chronic ulcer of other part of left foot with unspecified severity; K21.0 Gastro-esophageal reflux disease with esophagitis; K44.9 Diaphragmatic hernia without obstruction or gangrene; I25.5 Ischemic cardiomyopathy; J40 Bronchitis, not specified as acute or chronic; E11.69 Type 2 diabetes mellitus with other specified complication; D50.9 Iron deficiency anemia, unspecified; D63.1 Anemia in chronic kidney disease; Z91.19 Patient's noncompliance with other medical treatment and regimen; Z79.4 Long term (current) use of insulin; Z88.5 Allergy status to narcotic agent; I25.10 Atherosclerotic heart disease of native coronary artery without angina pectoris; Z95.5 Presence of coronary angioplasty implant and graft
CPT/HCPCS: 36430; 71046; 74018; 74176; 76705; 76937; 80048; 80053; 80074; 80202; 82103; 82104; 82390; 82550; 82565; 82607; 82728; 82747; 82784; 82948; 83010; 83516; 83520; 83540; 83550; 83615; 83690; 83735; 83880; 84100; 84484; 85014; 85018; 85025; 85027; 85610; 85730; 86038; 86255; 86403; 86703; 86850; 86880; 86900; 86901; 86920; 87040; 87070; 87077; 87147; 87186; 87205; 87804; 88305; 93005; 93308; 93971; 94640; 94664; 96365; 96375; C9113; J0690; J0692; J1170; J1644; J1756; J1815; J1940; J1956; J2060; J2270; J2405; J2550; J3370; J7030; J7040; J7050; P9016; Q4081